=== PATIENT | female | born 1960 | race African-American/Black ===

== ENCOUNTER 2022-08-22 03:42 | Inpatient (IN) | payer MEDICAID ==
[~2022-08-22] VITALS: Ht 160 cm; Wt 48.4 kg
[~2022-08-22 03:42] MED LIST: BACL10TA PO; CITA-77 PO; CYCL-839 PO; ETAN50IN10 SUBCUT; FOLI1TAB6 PO; HYDR-4188 PO; HYDR-4833 PO; LEVO750T8 PO; LOSA-69 PO; MORP30TA PO; PERCOT PO; QUET25TA37 PO; SIMV-13 PO; TOPI50TA53 PO
[2022-08-22] MEDS ORDERED: methylPREDNISolone SOD SUCC 125 MG/2 ML VL IV ONE (04:00)
[2022-08-22] MEDS ORDERED: ALBUTEROL SULF 2.5 MG/0.5ML(0.5%) NEB SOLN NEB ONE (04:00)
[2022-08-22] MEDS ORDERED: IPRATROPIUM BROM 0.5 MG/2.5ML INH SOL NEB ONE (04:00)
[2022-08-22 04:14] LABS: Hemoglobin 11.6 g/dL (12.2-16.2); Mean Corpuscular Volume 85.7 fL (80.0-100.0); White Blood Cell 8.4 10^3/uL (4.4-10.8)
[2022-08-22 04:16] LABS: Hematocrit 37.1 % (36.0-46.0); Mean Corpuscular Hemoglobin 26.8 pg (28.0-32.0); Mean Corpuscular Hgb Conc. 31.3 g/dL (32.0-36.0); Red Blood Cells 4.33 10^6/uL (4.0-5.20)
[2022-08-22 04:24] LABS: INR 1.08 (0.9-1.15); Partial Thromboplastin Time 30.9 sec (24.6-33.4)
[2022-08-22 04:30] LABS: Albumin 3.1 g/dL (3.4-5.0); Calcium 7.8 mg/dL (8.5-10.1); Potassium 4.3 mmol/L (3.5-5.1)
[2022-08-22 04:33] LABS: BUN/Creatinine Ratio 14.1 (10.0-20.0); Bilirubin, Total 0.4 mg/dL (0.2-1.0); Total Protein 6.4 g/dL (6.4-8.2)
[2022-08-22 04:38] LABS: Red Cell Distribution Width 21.4 % (11.8-14.3)
[2022-08-22 04:39] LABS: Basophils % (manual) 0 (0.0-2.0); Blast Cells 0; Eosinophils % (manual) 0 (0-7); Metamyelocytes % 0; Myelocytes % 0; Promyelocytes % 0; Reactive Lymphocytes 0
[2022-08-22] MEDS ORDERED: TERBUTALINE SULFATE 1 MG/ML 1ML VIAL SC ONE (05:00)
[2022-08-22 05:02] LABS: Band Neutrophils % (manual) 2; Lymphocytes % (manual) 8 (10.0-50.0); Monocytes % (manual) 7 (0-12)
[2022-08-22] MEDS: MAGNESIUM SULFATE 1GM/100ML 100 ML IV SCH ×2 (06:29→10:57)
[2022-08-22] MEDS ORDERED: DEXTROSE (50%) 50ML SYRG IV PRN (07:30)
[2022-08-22] MEDS ORDERED: MORPHINE SULFATE INJ 2 MG/ml SYRG IV PRN (07:30)
[2022-08-22] MEDS ORDERED: IPRATROPIUM BROM 0.5 MG/2.5ML INH SOL NEB PRN (07:30)
[2022-08-22] MEDS ORDERED: NITROGLYCERIN 0.4 MG SL TAB SL PRN (07:30)
[2022-08-22] MEDS ORDERED: ALBUTEROL SULF 2.5 MG/0.5ML(0.5%) NEB SOLN NEB PRN (07:30)
[2022-08-22 08:04] LABS: Urine Bacteria FEW /hpf (None Seen); Urine Blood Negative /uL (Negative); Urine Mucus FEW (None Seen); Urine Specific Gravity 1.012 (1.001-1.035); Urine WBC 2 /hpf (0 - 5)
[2022-08-22 08:14] VITALS: BP 152/76
[2022-08-22] MEDS: IPRATROPIUM BROM 0.5 MG/2.5ML INH SOL NEB SCH ×4 (09:21→22:21)
[2022-08-22] MEDS: ALBUTEROL SULF 2.5 MG/0.5ML(0.5%) NEB SOLN NEB SCH ×4 (09:21→22:22)
[2022-08-22] MEDS: PANTOPRAZOLE 40 MG/10 ML VIAL INJ IV SCH (10:52)
[2022-08-22] MEDS: ENOXAPARIN SOD 40 MG/0.4 ML SYRINGE SC SCH (10:52)
[2022-08-22] MEDS: methylPREDNISolone SOD SUCC 125 MG/2 ML VL IV SCH ×2 (10:53→21:56)
[2022-08-22] MEDS: ACCU-CHEK COMFORT CURVE STRIP VI SCH ×3 (12:00→21:59)
[2022-08-22] MEDS: InsuLIN REG 1unit/0.01ml Soln (100units/ml) SC SCH ×3 (12:08→21:51)
[2022-08-22] MEDS ORDERED: IOHEXOL 350 MG/ML 100ML IJ ONE (13:15)
[2022-08-22] MEDS ORDERED: NICOTINE 7MG/24HR TOPICAL PATCH TD ONE (13:45)
[2022-08-22 22:37] VITALS: BP 157/79
[2022-08-22 23:21] VITALS: BP 157/79
[2022-08-23] MEDS: IPRATROPIUM BROM 0.5 MG/2.5ML INH SOL NEB SCH ×6 (02:13→22:33)
[2022-08-23] MEDS: ALBUTEROL SULF 2.5 MG/0.5ML(0.5%) NEB SOLN NEB SCH ×6 (02:13→22:33)
[2022-08-23] MEDS ORDERED: HYDROcodone-ACET 5/325MG TAB PO ONE (04:30)
[2022-08-23 05:16] VITALS: BP 148/69
[2022-08-23] MEDS: InsuLIN REG 1unit/0.01ml Soln (100units/ml) SC SCH ×2 (05:16→11:30)
[2022-08-23] MEDS: ACCU-CHEK COMFORT CURVE STRIP VI SCH ×2 (05:17→11:30)
[2022-08-23 06:29] LABS: Basophils # (auto) 0 10 ^3/uL (0-0.2); Eosinophils # (auto) 0 10 ^3/uL (0-0.8); Eosinophils % (auto) 0.1 % (0.0-7.0); Hemoglobin 11.8 g/dL (12.2-16.2); Lymphocytes # (auto) 0.3 10 ^3/uL (0.4-5.4); Mean Corpuscular Volume 85.2 fL (80.0-100.0); Monocytes # (auto) 0.3 10 ^3/uL (0-1.3); White Blood Cell 4.1 10^3/uL (4.4-10.8)
[2022-08-23 06:32] LABS: Basophils % (auto) 0.2 % (0.0-2.0); Hematocrit 37.7 % (36.0-46.0); Mean Corpuscular Hemoglobin 26.7 pg (28.0-32.0); Mean Corpuscular Hgb Conc. 31.3 g/dL (32.0-36.0); Monocytes % (auto) 7.7 % (0.0-12.0); Neutrophils # (auto) 3.5 10 ^3/uL (1.6-8.6); Nucleated Red Blood Cells % 0.2 %; Potassium 4.4 mmol/L (3.5-5.1); Red Blood Cells 4.42 10^6/uL (4.0-5.20)
[2022-08-23 06:39] LABS: Albumin 2.8 g/dL (3.4-5.0); BUN/Creatinine Ratio 22.7 (10.0-20.0); Bilirubin, Total 0.3 mg/dL (0.2-1.0); Calcium 8.3 mg/dL (8.5-10.1); Total Protein 6.6 g/dL (6.4-8.2)
[2022-08-23 07:28] LABS: Red Cell Distribution Width 21.9 % (11.8-14.3)
[2022-08-23 09:24] VITALS: BP 108/79
[2022-08-23] MEDS: NICOTINE 7MG/24HR TOPICAL PATCH TD SCH (10:00)
[2022-08-23] MEDS ORDERED: ACETAMINOPHEN 325 MG TAB PO PRN (10:45)
[2022-08-23] MEDS: methylPREDNISolone SOD SUCC 125 MG/2 ML VL IV SCH ×2 (10:47→21:23)
[2022-08-23] MEDS: PANTOPRAZOLE 40 MG/10 ML VIAL INJ IV SCH (10:47)
[2022-08-23] MEDS: ENOXAPARIN SOD 40 MG/0.4 ML SYRINGE SC SCH (10:47)
[2022-08-23 12:29] VITALS: BP 158/88
[2022-08-23] MEDS: HYDROcodone-ACET 5/325MG TAB PO PRN ×2 (16:25→22:43)
[2022-08-23 16:40] VITALS: BP 173/91
[2022-08-24 00:38] VITALS: BP 132/72
[2022-08-24] MEDS: IPRATROPIUM BROM 0.5 MG/2.5ML INH SOL NEB SCH ×6 (02:31→22:06)
[2022-08-24] MEDS: ALBUTEROL SULF 2.5 MG/0.5ML(0.5%) NEB SOLN NEB SCH ×6 (02:31→22:06)
[2022-08-24] MEDS: HYDROcodone-ACET 5/325MG TAB PO PRN ×4 (05:12→22:37)
[2022-08-24] MEDS: hydrALAZINE HCL 20 MG/ML VL IV PRN ×2 (05:16→11:55)
[2022-08-24 06:10] LABS: Anion Gap 7 (5-15); BUN/Creatinine Ratio 26.8 (10.0-20.0); Blood Urea Nitrogen 19 mg/dL (7-18); Calcium 8.7 mg/dL (8.5-10.1); Carbon Dioxide 25 mmol/L (21-32); Chloride 110 mmol/L (98-107); GFR African American 107 mL/min; GFR Non-African American 88 mL/min; Glucose 177 mg/dL (74-106); Potassium 5.4 mmol/L (3.5-5.1); Sodium 142 mmol/L (136-145)
[2022-08-24 06:16] LABS: Basophils # (auto) 0.1 10 ^3/uL (0-0.2); Eosinophils # (auto) 0 10 ^3/uL (0-0.8); Monocytes # (auto) 0.3 10 ^3/uL (0-1.3)
[2022-08-24 06:17] LABS: Basophils % (auto) 0.5 % (0.0-2.0); Hematocrit 40.5 % (36.0-46.0); Hemoglobin 12.6 g/dL (12.2-16.2); Lymphocytes # (auto) 0.3 10 ^3/uL (0.4-5.4); Lymphocytes % (auto) 2.6 % (10.0-50.0); Mean Corpuscular Hemoglobin 26.7 pg (28.0-32.0); Mean Corpuscular Volume 86.2 fL (80.0-100.0); Monocytes % (auto) 3.2 % (0.0-12.0); Neutrophils # (auto) 9.5 10 ^3/uL (1.6-8.6); Neutrophils % (auto) 93.7 % (37.0-80.0); Nucleated Red Blood Cells % 0.3 %; Red Cell Distribution Width 22.8 % (11.8-14.3); White Blood Cell 10.1 10^3/uL (4.4-10.8)
[2022-08-24 08:00] VITALS: BP 157/82
[2022-08-24 09:00] VITALS: BP 157/82
[2022-08-24] MEDS: NICOTINE 7MG/24HR TOPICAL PATCH TD SCH (10:00)
[2022-08-24] MEDS: PANTOPRAZOLE 40 MG/10 ML VIAL INJ IV SCH (10:00)
[2022-08-24] MEDS: methylPREDNISolone SOD SUCC 125 MG/2 ML VL IV SCH ×2 (10:01→21:29)
[2022-08-24] MEDS: ENOXAPARIN SOD 40 MG/0.4 ML SYRINGE SC SCH (10:01)
[2022-08-24] MEDS: HCTZ 25 MG TAB PO SCH (12:00)
[2022-08-24 13:00] VITALS: BP 170/94
[2022-08-24] MEDS ORDERED: ONDANSETRON HCL 4 MG/2 ML VIAL IV PRN (14:30)
[2022-08-24] MEDS: amLODIPine BESYLATE 5 MG TAB PO SCH (15:45)
[2022-08-24] MEDS: LOSARTAN POTASSIUM 50 MG TAB PO SCH (15:46)
[2022-08-24 17:22] VITALS: BP 156/96
[2022-08-24 22:00] VITALS: BP 128/58
[2022-08-24] MEDS ORDERED: SENNA 8.6 MG TAB PO ONE (22:00)
[2022-08-25] MEDS: ALBUTEROL SULF 2.5 MG/0.5ML(0.5%) NEB SOLN NEB SCH ×3 (02:19→10:44)
[2022-08-25] MEDS: IPRATROPIUM BROM 0.5 MG/2.5ML INH SOL NEB SCH ×3 (02:19→10:44)
[2022-08-25 05:00] VITALS: BP 100/69
[2022-08-25] MEDS: HYDROcodone-ACET 5/325MG TAB PO PRN ×2 (05:01→11:18)
[2022-08-25 05:41] LABS: Basophils # (auto) 0 10 ^3/uL (0-0.2); Eosinophils # (auto) 0 10 ^3/uL (0-0.8); Hemoglobin 11.9 g/dL (12.2-16.2); Lymphocytes # (auto) 0.2 10 ^3/uL (0.4-5.4); Neutrophils # (auto) 8.2 10 ^3/uL (1.6-8.6); White Blood Cell 8.8 10^3/uL (4.4-10.8)
[2022-08-25 05:57] LABS: BUN/Creatinine Ratio 23.1 (10.0-20.0); Calcium 8.3 mg/dL (8.5-10.1); Potassium 3.9 mmol/L (3.5-5.1)
[2022-08-25 05:58] LABS: Basophils % (auto) 0.4 % (0.0-2.0); Hematocrit 37.6 % (36.0-46.0); Lymphocytes % (auto) 1.9 % (10.0-50.0); Mean Corpuscular Hemoglobin 26.6 pg (28.0-32.0); Mean Corpuscular Hgb Conc. 31.7 g/dL (32.0-36.0); Mean Corpuscular Volume 83.8 fL (80.0-100.0); Monocytes # (auto) 0.4 10 ^3/uL (0-1.3); Monocytes % (auto) 4.1 % (0.0-12.0); Neutrophils % (auto) 93.6 % (37.0-80.0); Nucleated Red Blood Cells % 0.1 %; Red Blood Cells 4.49 10^6/uL (4.0-5.20); Red Cell Distribution Width 22.3 % (11.8-14.3)
[2022-08-25 08:50] VITALS: BP 117/69
[2022-08-25] MEDS: methylPREDNISolone SOD SUCC 125 MG/2 ML VL IV SCH (10:00)
[2022-08-25] MEDS: HCTZ 25 MG TAB PO SCH (10:00)
[2022-08-25] MEDS: NICOTINE 7MG/24HR TOPICAL PATCH TD SCH (10:00)
[2022-08-25] MEDS: PANTOPRAZOLE 40 MG/10 ML VIAL INJ IV SCH (10:04)
[2022-08-25] MEDS: ENOXAPARIN SOD 40 MG/0.4 ML SYRINGE SC SCH (10:06)
[2022-08-25] MEDS: amLODIPine BESYLATE 5 MG TAB PO SCH (10:07)
[2022-08-25] MEDS: LOSARTAN POTASSIUM 50 MG TAB PO SCH (10:07)
[2022-08-25] MEDS ORDERED: PRED20TA2 PO (11:17)
[2022-08-25 12:40] VITALS: BP 131/61
[2022-08-25 12:52] VITALS: BP 149/79
[2022-08-25 15:58] VITALS: BP 131/61
== END 2022-08-25 14:00 | disposition home or self-care (01) | DRG 140 ==
LOC: ER 03:42 → EDBD 03:42 → TELE 07:28 → TELE-WESTW 21:17
PROVIDERS: ADMIT Registered Nurse; ATTEND Internal Medicine Pulmonary Disease
DX: J44.1 Chronic obstructive pulmonary disease with (acute) exacerbation (principal); J96.21 Acute and chronic respiratory failure with hypoxia; E43 Unspecified severe protein-calorie malnutrition; F17.210 Nicotine dependence, cigarettes, uncomplicated; I10 Essential (primary) hypertension; F41.9 Anxiety disorder, unspecified; F32.A Depression, unspecified; E78.5 Hyperlipidemia, unspecified; E09.65 Drug or chemical induced diabetes mellitus with hyperglycemia; T38.0X5A Adverse effect of glucocorticoids and synthetic analogues, initial encounter; Z90.710 Acquired absence of both cervix and uterus; Z68.1 Body mass index [BMI] 19.9 or less, adult; Z88.8 Allergy status to other drugs, medicaments and biological substances
CPT/HCPCS: 36415; 36600; 71045; 71275; 74176; 80048; 80053; 81001; 82805; 82962; 83735; 83880; 84484; 85007; 85025; 85027; 85379; 85610; 85730; 93005; 94640; 96365; 96372; 96375; 96376; C9113; G0378; J1815; J2405

== ENCOUNTER 2023-04-09 22:47 | Inpatient (IN) | payer MEDICAID ==
[~2023-04-09] VITALS: Ht 165.1 cm; Wt 52.0 kg
[~2023-04-09 22:47] MED LIST changes: -BACL10TA PO; -CITA-77 PO; -CYCL-839 PO; -ETAN50IN10 SUBCUT; -FOLI1TAB6 PO; -HYDR-4188 PO; -HYDR-4833 PO; -LEVO750T8 PO; -LOSA-69 PO; -MORP30TA PO; -PERCOT PO; +PRED20TA2 PO; -QUET25TA37 PO; -SIMV-13 PO; -TOPI50TA53 PO
[2023-04-09 22:52] VITALS: PULSE 149; O2SAT 100
[2023-04-09] MEDS ORDERED: cefTRIAXone 1GM/50ML D5W 50 ML IV ONE ×2 (23:05→23:15)
[2023-04-09] MEDS ORDERED: methylPREDNISolone SOD SUCC 125 MG/2 ML VL ONE (23:05)
[2023-04-09] MEDS ORDERED: methylPREDNISolone SOD SUCC 125 MG/2 ML VL IV ONE (23:15)
[2023-04-09] MEDS ORDERED: ALBUTEROL SULF 2.5 MG/0.5ML(0.5%) NEB SOLN NEB ONE ×2 (23:15)
[2023-04-09 23:30] LABS: Basophils # (auto) 0.3 10 ^3/uL (0-0.2); Basophils % (auto) 1.4 % (0.0-2.0); Eosinophils # (auto) 0.1 10 ^3/uL (0-0.8); Eosinophils % (auto) 0.4 % (0.0-7.0); Hemoglobin 12.2 g/dL (12.2-16.2); Lymphocytes # (auto) 1.8 10 ^3/uL (0.4-5.4); Lymphocytes % (auto) 10.1 % (10.0-50.0); Mean Corpuscular Hemoglobin 29.3 pg (28.0-32.0); Mean Corpuscular Hgb Conc. 31.3 g/dL (32.0-36.0); Mean Corpuscular Volume 93.6 fL (80.0-100.0); Monocytes # (auto) 0.2 10 ^3/uL (0-1.3); Neutrophils # (auto) 15.7 10 ^3/uL (1.6-8.6); Neutrophils % (auto) 87.1 % (37.0-80.0); Nucleated Red Blood Cells % 0.5 %; Red Blood Cells 4.17 10^6/uL (4.0-5.20); Red Cell Distribution Width 15.6 % (11.8-14.3)
[2023-04-10] VITALS (14 sets, daily range): BP systolic 83–160; BP diastolic 50–84; PULSE 80–150; RESP 21–30; TEMP 98.4; O2SAT 95–100
[2023-04-10] MEDS ORDERED: levoFLOXacin 500MG 100 ML IV ONE (00:15)
[2023-04-10 00:21] LABS: Base Excess 4.3 mmol/L (-2.0-2.0)
[2023-04-10] MEDS ORDERED: fentaNYL CITRATE 100 MCG/2 ML VL IV ONE (00:30)
[2023-04-10 00:36] LABS: INR 1.04 (0.9-1.15); Partial Thromboplastin Time 21.7 SEC (24.5-34.5); Prothrombin Time 10.9 sec (9.3-11.8)
[2023-04-10 01:00] LABS: Alanine Aminotransferase 60 U/L (7-40); Alkaline Phosphatase 228 U/L (46-116); Anion Gap 9 (5-15); Aspartate Aminotransferase 41 U/L (13-40); BUN/Creatinine Ratio 17.9 (10.0-20.0); Blood Urea Nitrogen 12 mg/dL (9-23); Calcium 8.7 mg/dL (8.7-10.4); Carbon Dioxide 24 mmol/L (20-30); Chloride 104 mmol/L (98-107); Glucose 184 mg/dL (74-106); Potassium 3.9 mmol/L (3.5-5.1); Sodium 137 mmol/L (136-145)
[2023-04-10 01:01] LABS: Albumin 3.6 g/dL (3.2-4.8); Bilirubin, Total 0.7 mg/dL (0.2-1.0); Total Protein 6.7 g/dL (5.7-8.2)
[2023-04-10 01:37] LABS: COVID19 ANTIGEN SOFIA FIA NEGATIVE (NEGATIVE)
[2023-04-10 01:41] LABS: Rapid Influenza A Negative (Negative); Rapid Influenza B Positive (Negative)
[2023-04-10] MEDS ORDERED: LORazepam 2MG/ML-1ML VIAL IV ONE (03:00)
[2023-04-10] MEDS ORDERED: ASPirin 325 MG TAB PO ONE (03:15)
[2023-04-10] MEDS ORDERED: ENOXAPARIN SOD 60 MG/0.6 ML SYRINGE SC ONE (03:15)
[2023-04-10] MEDS ORDERED: SODIUM CHLORIDE 0.9% 1,500 ML IV ONE (04:30)
[2023-04-10] MEDS ORDERED: ALBUMIN 5% 250 ML IV ONE (05:15)
[2023-04-10] MEDS ORDERED: ALBUTEROL SULF 2.5 MG/0.5ML(0.5%) NEB SOLN NEB PRN (06:15)
[2023-04-10] MEDS ORDERED: NITROGLYCERIN 0.4 MG SL TAB SL PRN (06:15)
[2023-04-10] MEDS ORDERED: ONDANSETRON HCL 4 MG/2 ML VIAL IV PRN (06:15)
[2023-04-10] MEDS ORDERED: cefTRIAXone 1GM/50ML D5W 50 ML IV SCH (09:00)
[2023-04-10] MEDS ORDERED: ENOXAPARIN SOD 40 MG/0.4 ML SYRINGE SC SCH (10:00)
[2023-04-10] MEDS ORDERED: OSELTAMIVIR 75 MG CAP PO ONE (10:45)
[2023-04-10] MEDS: AZITHROMYCIN 500MG/ 250ML 250 ML IV SCH (11:17)
[2023-04-10] MEDS: ASPirin 81 mg TAB PO SCH (11:17)
[2023-04-10] MEDS: MAGNESIUM SULFATE 1GM/100ML 100 ML IV SCH ×2 (11:59→13:21)
[2023-04-10] MEDS: ACETAMINOPHEN 325 MG TAB PO PRN (11:59)
[2023-04-10 12:10] LABS: Basophils # (auto) 0.1 10 ^3/uL (0-0.2); Basophils % (auto) 0.3 % (0.0-2.0); Eosinophils # (auto) 0 10 ^3/uL (0-0.8); Hematocrit 28.4 % (36.0-46.0); Lymphocytes # (auto) 0.8 10 ^3/uL (0.4-5.4); Lymphocytes % (auto) 3.4 % (10.0-50.0); Mean Corpuscular Hemoglobin 29.4 pg (28.0-32.0); Mean Corpuscular Hgb Conc. 31.7 g/dL (32.0-36.0); Monocytes # (auto) 0.5 10 ^3/uL (0-1.3); Monocytes % (auto) 2.1 % (0.0-12.0); Neutrophils % (auto) 94.2 % (37.0-80.0); Red Blood Cells 3.05 10^6/uL (4.0-5.20); Red Cell Distribution Width 15.3 % (11.8-14.3); White Blood Cell 24.4 10^3/uL (4.4-10.8)
[2023-04-10 12:30] LABS: Alanine Aminotransferase 51 U/L (7-40); Albumin 3.1 g/dL (3.2-4.8); Alkaline Phosphatase 177 U/L (46-116); Anion Gap 10 (5-15); Aspartate Aminotransferase 25 U/L (13-40); Blood Urea Nitrogen 15 mg/dL (9-23); Calcium 8.2 mg/dL (8.5-10.1); Carbon Dioxide 23 mmol/L (20-30); Chloride 109 mmol/L (98-107); Glucose 233 mg/dL (74-106); Potassium 4.7 mmol/L (3.5-5.1); Sodium 142 mmol/L (136-145)
[2023-04-10 12:31] LABS: Bilirubin, Total 0.3 mg/dL (0.2-1.0); Total Protein 5.2 g/dL (5.7-8.2)
[2023-04-10] MEDS: MORPHINE SULFATE INJ 2 MG/ml SYRG IV PRN ×2 (12:35→19:55)
[2023-04-10 14:33] LABS: Base Excess 0.6 mmol/L (-2.0-2.0)
[2023-04-10] MEDS: ALBUTEROL SULF 2.5 MG/0.5ML(0.5%) NEB SOLN NEB SCH ×4 (15:05→23:31)
[2023-04-10] MEDS: IPRATROPIUM BROM 0.5 MG/2.5ML INH SOL NEB SCH ×4 (15:05→23:32)
[2023-04-10] MEDS: methylPREDNISolone SOD SUCC 40 MG/ML VL IV SCH (21:14)
[2023-04-10] MEDS: cefTRIAXone 1GM/50ML D5W 50 ML IV SCH (21:15)
[2023-04-10] MEDS: OSELTAMIVIR 75 MG CAP PO SCH (21:15)
[2023-04-10] MEDS: ATORVASTATIN 20 MG TAB PO SCH (21:15)
[2023-04-10] MEDS ORDERED: DEXTROSE (50%) 50ML SYRG IV PRN (23:30)
[2023-04-11] VITALS (18 sets, daily range): BP systolic 126–150; BP diastolic 58–100; PULSE 85–117; RESP 17–32; TEMP 98.3–99.1; O2SAT 10–100
[2023-04-11] MEDS: MORPHINE SULFATE INJ 2 MG/ml SYRG IV PRN ×5 (01:57→21:02)
[2023-04-11 03:40] LABS: Urine Bacteria FEW /hpf (None Seen); Urine Blood Negative /uL (Negative); Urine Clarity Clear (Clear); Urine Color Colorless (Yellow); Urine Protein, UAD Negative (Negative); Urine Specific Gravity 1.015 (1.001-1.035); Urine Urobilinogen Normal (Negative); Urine WBC 1 /hpf (0 - 5)
[2023-04-11] MEDS: ENOXAPARIN SOD 40 MG/0.4 ML SYRINGE SC SCH (05:26)
[2023-04-11 06:09] LABS: Basophils # (auto) 0.1 10 ^3/uL (0-0.2); Basophils % (auto) 0.5 % (0.0-2.0); Eosinophils # (auto) 0 10 ^3/uL (0-0.8); Hematocrit 26.8 % (36.0-46.0); Hemoglobin 8.6 g/dL (12.2-16.2); Lymphocytes # (auto) 0.5 10 ^3/uL (0.4-5.4); Mean Corpuscular Hemoglobin 29.2 pg (28.0-32.0); Mean Corpuscular Hgb Conc. 32.2 g/dL (32.0-36.0); Mean Corpuscular Volume 90.9 fL (80.0-100.0); Monocytes # (auto) 0.4 10 ^3/uL (0-1.3); Monocytes % (auto) 2.2 % (0.0-12.0); Neutrophils # (auto) 16.6 10 ^3/uL (1.6-8.6); Neutrophils % (auto) 94.3 % (37.0-80.0); Red Blood Cells 2.95 10^6/uL (4.0-5.20); Red Cell Distribution Width 14.9 % (11.8-14.3); White Blood Cell 17.6 10^3/uL (4.4-10.8)
[2023-04-11 06:16] LABS: INR 0.99 (0.9-1.15); Prothrombin Time 10.4 sec (9.3-11.8)
[2023-04-11] MEDS: IPRATROPIUM BROM 0.5 MG/2.5ML INH SOL NEB SCH ×5 (06:16→23:17)
[2023-04-11] MEDS: ALBUTEROL SULF 2.5 MG/0.5ML(0.5%) NEB SOLN NEB SCH ×5 (06:16→23:17)
[2023-04-11 06:30] LABS: % Iron Saturation 8.7 % (15-50)
[2023-04-11 06:32] LABS: Alanine Aminotransferase 43 U/L (7-40); Albumin 3.4 g/dL (3.2-4.8); Alkaline Phosphatase 167 U/L (46-116); Anion Gap 3 (5-15); Aspartate Aminotransferase 18 U/L (13-40); BUN/Creatinine Ratio 25.6 (10.0-20.0); Bilirubin, Total 0.2 mg/dL (0.2-1.0); Blood Urea Nitrogen 20 mg/dL (9-23); Calcium 8.7 mg/dL (8.7-10.4); Carbon Dioxide 29 mmol/L (20-30); Chloride 106 mmol/L (98-107); Glucose 301 mg/dL (74-106); Magnesium 2.2 mg/dL (1.6-2.6); Potassium 4.9 mmol/L (3.5-5.1); Sodium 138 mmol/L (136-145); Total Protein 6.1 g/dL (5.7-8.2)
[2023-04-11 06:39] LABS: Folate (Folic Acid) 10.25 ng/mL (>5.38)
[2023-04-11] MEDS: ACCU-CHEK COMFORT CURVE STRIP VI SCH ×4 (07:14→21:56)
[2023-04-11] MEDS: InsuLIN REG 1unit/0.01ml Soln (100units/ml) SC SCH ×4 (07:15→21:58)
[2023-04-11] MEDS: INSULIN LANTUS (GLARGINE) 1 /0.01ml (100units/ml) SC SCH (07:15)
[2023-04-11] MEDS: ASPirin 81 mg TAB PO SCH (08:03)
[2023-04-11] MEDS: methylPREDNISolone SOD SUCC 40 MG/ML VL IV SCH (08:03)
[2023-04-11] MEDS: OSELTAMIVIR 75 MG CAP PO SCH ×2 (08:03→20:59)
[2023-04-11] MEDS: AZITHROMYCIN 500MG/ 250ML 250 ML IV SCH (08:04)
[2023-04-11] MEDS ORDERED: AZITHROMYCIN 250 MG TAB PO ONE (16:00)
[2023-04-11] MEDS: ATORVASTATIN 20 MG TAB PO SCH (20:59)
[2023-04-11] MEDS: cefTRIAXone 1GM/50ML D5W 50 ML IV SCH (20:59)
[2023-04-12] VITALS (20 sets, daily range): BP systolic 129–149; BP diastolic 57–75; PULSE 78–118; RESP 17–37; TEMP 98–99.1; O2SAT 90–100
[2023-04-12] MEDS: ALBUTEROL SULF 2.5 MG/0.5ML(0.5%) NEB SOLN NEB SCH ×6 (02:49→22:17)
[2023-04-12] MEDS: IPRATROPIUM BROM 0.5 MG/2.5ML INH SOL NEB SCH ×6 (02:49→22:17)
[2023-04-12] MEDS: MORPHINE SULFATE INJ 2 MG/ml SYRG IV PRN ×5 (04:07→22:36)
[2023-04-12] MEDS: ENOXAPARIN SOD 40 MG/0.4 ML SYRINGE SC SCH (04:15)
[2023-04-12 05:11] LABS: Basophils # (auto) 0 10 ^3/uL (0-0.2); Basophils % (auto) 0.2 % (0.0-2.0); Eosinophils # (auto) 0.1 10 ^3/uL (0-0.8); Eosinophils % (auto) 0.7 % (0.0-7.0); Hematocrit 29.6 % (36.0-46.0); Hemoglobin 9.3 g/dL (12.2-16.2); Lymphocytes # (auto) 2.4 10 ^3/uL (0.4-5.4); Lymphocytes % (auto) 13.5 % (10.0-50.0); Mean Corpuscular Hemoglobin 28.8 pg (28.0-32.0); Mean Corpuscular Hgb Conc. 31.5 g/dL (32.0-36.0); Mean Corpuscular Volume 91.7 fL (80.0-100.0); Monocytes # (auto) 0.9 10 ^3/uL (0-1.3); Monocytes % (auto) 4.9 % (0.0-12.0); Neutrophils # (auto) 14.5 10 ^3/uL (1.6-8.6); Neutrophils % (auto) 80.7 % (37.0-80.0); Red Blood Cells 3.22 10^6/uL (4.0-5.20); Red Cell Distribution Width 15.3 % (11.8-14.3); White Blood Cell 17.9 10^3/uL (4.4-10.8)
[2023-04-12 05:12] LABS: Anion Gap 5 (5-15); Carbon Dioxide 29 mmol/L (20-30); Chloride 105 mmol/L (98-107); Potassium 4.4 mmol/L (3.5-5.1); Sodium 139 mmol/L (136-145)
[2023-04-12 05:13] LABS: Calcium 9.1 mg/dL (8.7-10.4)
[2023-04-12 05:18] LABS: BUN/Creatinine Ratio 31.7 (10.0-20.0); Blood Urea Nitrogen 20 mg/dL (9-23); Glucose 94 mg/dL (74-106)
[2023-04-12] MEDS: InsuLIN REG 1unit/0.01ml Soln (100units/ml) SC SCH ×4 (06:14→22:31)
[2023-04-12] MEDS: ACCU-CHEK COMFORT CURVE STRIP VI SCH ×4 (06:14→22:37)
[2023-04-12] MEDS: INSULIN LANTUS (GLARGINE) 1 /0.01ml (100units/ml) SC SCH (06:18)
[2023-04-12] MEDS: ASPirin 81 mg TAB PO SCH (09:58)
[2023-04-12] MEDS: methylPREDNISolone SOD SUCC 40 MG/ML VL IV SCH (09:58)
[2023-04-12] MEDS: OSELTAMIVIR 75 MG CAP PO SCH ×2 (09:58→22:33)
[2023-04-12] MEDS: AZITHROMYCIN 250 MG TAB PO SCH (09:59)
[2023-04-12] MEDS ORDERED: TAMIFLU PO (10:58)
[2023-04-12] MEDS ORDERED: PRED20TA2 PO (10:58)
[2023-04-12] MEDS ORDERED: AZIT500T66 PO ×2 (10:58)
[2023-04-12] MEDS ORDERED: DOXY-448 PO (10:59)
[2023-04-12] MEDS: ACETAMINOPHEN 325 MG TAB PO PRN (15:01)
[2023-04-12] MEDS: DOCUSATE SOD 100 MG CAP PO PRN (15:01)
[2023-04-12] MEDS ORDERED: NYSTATIN (MOUTH-THROAT) 500,000 UNITS/5 ML SUSP MT ONE (18:30)
[2023-04-12] MEDS: ATORVASTATIN 20 MG TAB PO SCH (22:33)
[2023-04-12] MEDS: cefTRIAXone 1GM/50ML D5W 50 ML IV SCH (22:34)
[2023-04-12] MEDS: NYSTATIN (MOUTH-THROAT) 500,000 UNITS/5 ML SUSP MT SCH (22:34)
[2023-04-13] VITALS (20 sets, daily range): BP systolic 111–141; BP diastolic 68–76; PULSE 84–101; RESP 17–32; TEMP 98.1–98.8; O2SAT 95–100
[2023-04-13] MEDS: ENOXAPARIN SOD 40 MG/0.4 ML SYRINGE SC SCH (04:37)
[2023-04-13] MEDS: MORPHINE SULFATE INJ 2 MG/ml SYRG IV PRN ×3 (04:38→19:38)
[2023-04-13 05:37] LABS: Chloride 103 mmol/L (98-107); Potassium 3.6 mmol/L (3.5-5.1); Sodium 140 mmol/L (136-145)
[2023-04-13 05:38] LABS: Anion Gap 8 (5-15); Carbon Dioxide 29 mmol/L (20-30)
[2023-04-13 05:39] LABS: Calcium 9.1 mg/dL (8.5-10.1)
[2023-04-13 05:43] LABS: Glucose 184 mg/dL (74-106)
[2023-04-13 05:44] LABS: BUN/Creatinine Ratio 23.9 (10.0-20.0); Blood Urea Nitrogen 17 mg/dL (9-23)
[2023-04-13 05:48] LABS: Basophils # (auto) 0.1 10 ^3/uL (0-0.2); Basophils % (auto) 0.8 % (0.0-2.0); Eosinophils # (auto) 0.1 10 ^3/uL (0-0.8); Eosinophils % (auto) 0.4 % (0.0-7.0); Hematocrit 29.8 % (36.0-46.0); Hemoglobin 9.6 g/dL (12.2-16.2); Lymphocytes # (auto) 2.1 10 ^3/uL (0.4-5.4); Mean Corpuscular Hgb Conc. 32.1 g/dL (32.0-36.0); Mean Corpuscular Volume 90.5 fL (80.0-100.0); Monocytes # (auto) 0.8 10 ^3/uL (0-1.3); Monocytes % (auto) 5.3 % (0.0-12.0); Neutrophils # (auto) 11.6 10 ^3/uL (1.6-8.6); Neutrophils % (auto) 79.5 % (37.0-80.0); Nucleated Red Blood Cells % 0.3 %; Red Blood Cells 3.29 10^6/uL (4.0-5.20); White Blood Cell 14.7 10^3/uL (4.4-10.8)
[2023-04-13] MEDS: NYSTATIN (MOUTH-THROAT) 500,000 UNITS/5 ML SUSP MT SCH ×4 (06:02→21:39)
[2023-04-13] MEDS: ACCU-CHEK COMFORT CURVE STRIP VI SCH ×4 (06:03→21:43)
[2023-04-13] MEDS: InsuLIN REG 1unit/0.01ml Soln (100units/ml) SC SCH ×4 (06:17→21:53)
[2023-04-13] MEDS: INSULIN LANTUS (GLARGINE) 1 /0.01ml (100units/ml) SC SCH (06:18)
[2023-04-13] MEDS: ALBUTEROL SULF 2.5 MG/0.5ML(0.5%) NEB SOLN NEB SCH ×4 (06:33→22:13)
[2023-04-13] MEDS: IPRATROPIUM BROM 0.5 MG/2.5ML INH SOL NEB SCH ×4 (06:33→22:13)
[2023-04-13] MEDS: ASPirin 81 mg TAB PO SCH (09:21)
[2023-04-13] MEDS: AZITHROMYCIN 250 MG TAB PO SCH (09:22)
[2023-04-13] MEDS: methylPREDNISolone SOD SUCC 40 MG/ML VL IV SCH (09:22)
[2023-04-13] MEDS: ACETAMINOPHEN 325 MG TAB PO PRN ×2 (09:22→18:01)
[2023-04-13] MEDS: DOCUSATE SOD 100 MG CAP PO PRN (09:22)
[2023-04-13] MEDS: OSELTAMIVIR 75 MG CAP PO SCH ×2 (09:22→21:39)
[2023-04-13] MEDS: cefTRIAXone 1GM/50ML D5W 50 ML IV SCH (21:01)
[2023-04-13] MEDS: ATORVASTATIN 20 MG TAB PO SCH (21:39)
[2023-04-14] VITALS (17 sets, daily range): BP systolic 122–136; BP diastolic 64–73; PULSE 65–101; RESP 18–24; TEMP 98–98.7; O2SAT 93–100
[2023-04-14] MEDS: ACETAMINOPHEN 325 MG TAB PO PRN ×3 (00:53→16:48)
[2023-04-14] MEDS: MORPHINE SULFATE INJ 2 MG/ml SYRG IV PRN ×3 (03:50→20:24)
[2023-04-14] MEDS: ENOXAPARIN SOD 40 MG/0.4 ML SYRINGE SC SCH (04:51)
[2023-04-14] MEDS: NYSTATIN (MOUTH-THROAT) 500,000 UNITS/5 ML SUSP MT SCH ×4 (06:07→21:19)
[2023-04-14] MEDS: ACCU-CHEK COMFORT CURVE STRIP VI SCH ×4 (06:12→22:04)
[2023-04-14] MEDS: InsuLIN REG 1unit/0.01ml Soln (100units/ml) SC SCH ×4 (06:13→22:11)
[2023-04-14] MEDS: INSULIN LANTUS (GLARGINE) 1 /0.01ml (100units/ml) SC SCH (06:27)
[2023-04-14] MEDS: IPRATROPIUM BROM 0.5 MG/2.5ML INH SOL NEB SCH ×5 (06:39→22:30)
[2023-04-14] MEDS: ALBUTEROL SULF 2.5 MG/0.5ML(0.5%) NEB SOLN NEB SCH ×5 (06:39→22:30)
[2023-04-14 08:50] LABS: Basophils # (auto) 0.2 10 ^3/uL (0-0.2); Basophils % (auto) 1.3 % (0.0-2.0); Eosinophils # (auto) 0.1 10 ^3/uL (0-0.8); Eosinophils % (auto) 0.6 % (0.0-7.0); Hematocrit 30.8 % (36.0-46.0); Hemoglobin 9.7 g/dL (12.2-16.2); Lymphocytes # (auto) 3.2 10 ^3/uL (0.4-5.4); Lymphocytes % (auto) 21.9 % (10.0-50.0); Mean Corpuscular Hemoglobin 28.6 pg (28.0-32.0); Mean Corpuscular Hgb Conc. 31.6 g/dL (32.0-36.0); Mean Corpuscular Volume 90.5 fL (80.0-100.0); Monocytes # (auto) 0.8 10 ^3/uL (0-1.3); Monocytes % (auto) 5.3 % (0.0-12.0); Neutrophils # (auto) 10.2 10 ^3/uL (1.6-8.6); Neutrophils % (auto) 70.9 % (37.0-80.0); Nucleated Red Blood Cells % 0.2 %; Red Cell Distribution Width 14.9 % (11.8-14.3); White Blood Cell 14.4 10^3/uL (4.4-10.8)
[2023-04-14 08:58] LABS: Chloride 104 mmol/L (98-107); Potassium 4.2 mmol/L (3.5-5.1); Sodium 139 mmol/L (136-145)
[2023-04-14 09:00] LABS: Anion Gap 8 (5-15); Calcium 9.1 mg/dL (8.5-10.1); Carbon Dioxide 27 mmol/L (20-30)
[2023-04-14 09:05] LABS: BUN/Creatinine Ratio 31.4 (10.0-20.0); Blood Urea Nitrogen 16 mg/dL (9-23); Glucose 87 mg/dL (74-106)
[2023-04-14] MEDS: OSELTAMIVIR 75 MG CAP PO SCH ×2 (09:42→21:19)
[2023-04-14] MEDS: ASPirin 81 mg TAB PO SCH (09:42)
[2023-04-14] MEDS: AZITHROMYCIN 250 MG TAB PO SCH (09:42)
[2023-04-14] MEDS: methylPREDNISolone SOD SUCC 40 MG/ML VL IV SCH (09:44)
[2023-04-14] MEDS: cefTRIAXone 1GM/50ML D5W 50 ML IV SCH (21:13)
[2023-04-14] MEDS: ATORVASTATIN 20 MG TAB PO SCH (21:19)
[2023-04-15] VITALS (11 sets, daily range): BP systolic 122–128; BP diastolic 59–74; PULSE 69–103; RESP 14–24; TEMP 98.1–98.7; O2SAT 90–100
[2023-04-15] MEDS: ACETAMINOPHEN 325 MG TAB PO PRN (00:30)
[2023-04-15] MEDS: MORPHINE SULFATE INJ 2 MG/ml SYRG IV PRN ×2 (04:05→09:18)
[2023-04-15] MEDS: ENOXAPARIN SOD 40 MG/0.4 ML SYRINGE SC SCH (05:30)
[2023-04-15] MEDS: NYSTATIN (MOUTH-THROAT) 500,000 UNITS/5 ML SUSP MT SCH ×2 (05:31→11:31)
[2023-04-15 06:09] LABS: Hematocrit 27.7 % (36.0-46.0); Hemoglobin 8.8 g/dL (12.2-16.2); Mean Corpuscular Hemoglobin 29.1 pg (28.0-32.0); Mean Corpuscular Hgb Conc. 31.7 g/dL (32.0-36.0); Mean Corpuscular Volume 91.6 fL (80.0-100.0); Red Blood Cells 3.03 10^6/uL (4.0-5.20); Red Cell Distribution Width 15.5 % (11.8-14.3)
[2023-04-15] MEDS: ACCU-CHEK COMFORT CURVE STRIP VI SCH ×2 (06:27→11:31)
[2023-04-15] MEDS: InsuLIN REG 1unit/0.01ml Soln (100units/ml) SC SCH ×2 (06:27→11:36)
[2023-04-15 06:34] LABS: Alanine Aminotransferase 16 U/L (7-40); Albumin 3.2 g/dL (3.2-4.8); Alkaline Phosphatase 112 U/L (46-116); Anion Gap 7 (5-15); Aspartate Aminotransferase 8 U/L (13-40); BUN/Creatinine Ratio 25.4 (10.0-20.0); Bilirubin, Total 0.3 mg/dL (0.2-1.0); Blood Urea Nitrogen 18 mg/dL (9-23); Calcium 8.4 mg/dL (8.7-10.4); Carbon Dioxide 27 mmol/L (20-30); Chloride 105 mmol/L (98-107); Glucose 143 mg/dL (74-106); Potassium 3.9 mmol/L (3.5-5.1); Sodium 139 mmol/L (136-145); Total Protein 5.6 g/dL (5.7-8.2)
[2023-04-15] MEDS: ALBUTEROL SULF 2.5 MG/0.5ML(0.5%) NEB SOLN NEB SCH ×3 (07:04→13:30)
[2023-04-15] MEDS: IPRATROPIUM BROM 0.5 MG/2.5ML INH SOL NEB SCH ×3 (07:04→13:30)
[2023-04-15] MEDS: INSULIN LANTUS (GLARGINE) 1 /0.01ml (100units/ml) SC SCH (07:05)
[2023-04-15 07:09] LABS: Band Neutrophils % (manual) 0; Basophils % (manual) 0 (0.0-2.0); Promyelocytes % 0; Reactive Lymphocytes 0
[2023-04-15] MEDS: methylPREDNISolone SOD SUCC 40 MG/ML VL IV SCH (09:16)
[2023-04-15] MEDS: AZITHROMYCIN 250 MG TAB PO SCH (09:17)
[2023-04-15] MEDS: OSELTAMIVIR 75 MG CAP PO SCH (09:17)
[2023-04-15] MEDS: ASPirin 81 mg TAB PO SCH (09:17)
[2023-04-15 09:30] LABS: Blast Cells 1; Eosinophils % (manual) 1 (0-7); Lymphocytes % (manual) 19 (10.0-50.0); Metamyelocytes % 4; Monocytes % (manual) 3 (0-12); Myelocytes % 1
[2023-04-15 09:31] LABS: Platelet Estimate Adequate
[2023-04-15] MEDS ORDERED: METF-370 PO (20:29)
[2023-04-15] MEDS ORDERED: BLOO1KIT60 XX (20:30)
== END 2023-04-15 14:59 | disposition home or self-care (01) | DRG 720 ==
LOC: ER 22:47 → EDBD 22:47 → TELE 04-10 06:13 → DOU IN ICU 04-11 05:37 → TELE-EAST 04-12 18:11
PROVIDERS: ADMIT Internal Medicine; ATTEND Internal Medicine
PROC: 5A09457 Assistance with Respiratory Ventilation, 24-96 Consecutive Hours, Continuous Positive Airway Pressure (ICD-10-PCS; principal; 2023-04-09)
PROC: 05HA33Z Insertion of Infusion Device into Left Brachial Vein, Percutaneous Approach (ICD-10-PCS; 2023-04-11)
PROC: B54NZZA Ultrasonography of Left Upper Extremity Veins, Guidance (ICD-10-PCS; 2023-04-11)
DX: A41.9 Sepsis, unspecified organism (principal); J96.21 Acute and chronic respiratory failure with hypoxia; J15.69 Pneumonia due to other Gram-negative bacteria; J10.00 Influenza due to other identified influenza virus with unspecified type of pneumonia; I21.A1 Myocardial infarction type 2; I11.0 Hypertensive heart disease with heart failure; S36.119A Unspecified injury of liver, initial encounter; J15.9 Unspecified bacterial pneumonia; I50.9 Heart failure, unspecified; J44.0 Chronic obstructive pulmonary disease with (acute) lower respiratory infection; J44.1 Chronic obstructive pulmonary disease with (acute) exacerbation; F32.A Depression, unspecified; F41.9 Anxiety disorder, unspecified; M19.90 Unspecified osteoarthritis, unspecified site; M54.50 Low back pain, unspecified; Z20.822 Contact with and (suspected) exposure to COVID-19; E78.5 Hyperlipidemia, unspecified; B37.9 Candidiasis, unspecified; E11.9 Type 2 diabetes mellitus without complications; X58.XXXA Exposure to other specified factors, initial encounter; R74.01 Elevation of levels of liver transaminase levels; R91.8 Other nonspecific abnormal finding of lung field; Z90.710 Acquired absence of both cervix and uterus; Z98.51 Tubal ligation status; Y93.89 Activity, other specified; Y92.89 Other specified places as the place of occurrence of the external cause; Y99.8 Other external cause status
CPT/HCPCS: 36415; 36600; 71045; 71250; 74176; 80048; 80053; 81001; 82270; 82607; 82746; 82805; 82962; 83036; 83540; 83550; 83605; 83735; 83880; 84443; 84484; 85007; 85025; 85027; 85379; 85610; 85730; 87081; 87086; 87426; 87804; 93005; 93306; 93970; 94640; 94660; 96361; 96365; 96367; 96372; 96375; 99291; G0378; J1815; J1956

== ENCOUNTER 2024-03-03 13:34 | Inpatient (IN) | payer OTHER, MEDICAID ==
[~2024-03-03] VITALS: Ht 154.9 cm; Wt 49.0 kg
[2024-03-03 13:34] VITALS: PULSE 128; RESP 30; O2SAT 92
[~2024-03-03 13:34] MED LIST changes: +ALBU108A5 IN; +BLOO1KIT60 XX; +CELE200C PO; +CHOL20007 PO; +DOXY100C79 PO; +FLUT1AER3 IN; +LOSA-534 PO; +METF-370 PO; +METH-1181 PO; +SIMV40TA18 PO; +TAMIFLU PO; +TRAZ-228 PO
[2024-03-03] MEDS: ETOMIDATE (2MG/ML) 20ML VIAL IV ONE ×2 (13:35→14:21)
[2024-03-03] MEDS: SUCCINYLCHOLINE CHLORIDE 20 MG/ML 10ML VIAL IV ONE (13:35)
[2024-03-03] MEDS: MIDAZOLAM DRIP 50 mg/50mL 50 ML IV SCH (13:40)
--- NOTE | 2024-03-03 13:44 | ECG ---
[facility] Test Date: 2024-03-03 Test Time: 13:42:58 Pat Name: CASEY MORAN Department: ED Room: 0235T Gender: F Child Care Centre Manager: ANIYAH : 1960 Requested By: ERICK PADRON Order Number: [id number] Reading MD: Alek Peterson Measurements Intervals [place] Rate: 108 P: 76 ID: 128 QRS: 76 QRSD: 88 T: 81 QT: 341 QTc: 457 Interpretive Statements Sinus tachycardia Left ventricular hypertrophy Electronically Signed On 03-13-2024 12:48:28 PST by Alek Peterson Please click the below link to view image of tracing.
[2024-03-03] MEDS: MIDAZOLAM DRIP 50 mg/50mL 50 ML IV ONE (13:54)
[2024-03-03] MEDS: fentaNYL Drip 2500mCg/250mlNS 250 ML IV ONE (13:55)
[2024-03-03 14:01] LABS: Urine Bacteria None Seen /hpf (None Seen)
--- NOTE | 2024-03-03 14:17 | ED.PDOC ---
History of Present Illness HPI Comments 64 y/o F, with a Hx of acute hypoxic respiratory failure, asthma, COPD w/home O2 use, DM II, HLD, HTN, NSTEMI II, sepsis, and previous URI, is BIBA for c/o shortness of breath for 3-4 days. Per EMS report, patient's family are poor historians and states on patient having difficulty breathing for the past 3-4 days that worsened, suddenly, today w/o relief or improvement with at-home albuterol inhaler use. On scene, patient was found on scene by EMS staff on 75% on her 2-3lpm home O2, tachycardic, and with strong radial pulse. En route, patient was given 5mg Albuterol and 0.5mg Atrovent and placed on CPAP with no relief prior to being given 0.3ml epinephrine IM and having O2 raised to 10lpm. Upon arrival to ED, patient is stated to have a SpO2 of 96% on 10lpm but still having heavy [id number]. Patient has no other reported associated symptoms at this time. 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 Time Seen by MD: 13:25 Primary Care Provider: Linda DE LA FUENTE Reviewed Notes: Nurses Notes, Casino Shift Manager Notes, Medications, Allergies Allergies: Coded Allergies: Amitriptyline (Verified Allergy, Unknown, 08/22/22) Fluoxetine (Verified Allergy, Unknown, 11/06/17) Gabapentin (Verified Allergy, Unknown, 11/06/17) NSAIDs (Verified Allergy, Unknown, 11/06/17) Home Meds Active Scripts Blood Glucose Monitoring Suppl (D-Care Glucometer Kit/Glu W/Device) 1 Kit Kit, KIT XX, #1 Prov:PAULA OCHOA MD 04/15/23 Metformin Hydrochloride (Metformin Hcl) 500 Mg Tab, 1 TAB PO BID, #60 TAB 3 Refills Prov:PAULA OCHOA MD 04/15/23 Doxycycline (Monohydrate) (Doxycycline) 100 Mg Cap, 100 MG PO BID for 5 Days, #10 CAP Prov:ANA BONILLA MD 04/12/23 Oseltamivir Phosphate (Tamiflu) 75 Mg Cap, 75 MG PO Q12HR for 3 Days, #6 CAP Prov:AAN BONILLA MD 04/12/23 Prednisone (Prednisone) 20 Mg Tab, 20 MG PO BID for 5 Days, #10 TAB Prov:ANA BONILLA MD 04/12/23 Prednisone (Prednisone) 20 Mg Tab, 20 MG PO BID for 5 Days, #10 TAB Prov:ANA BONILLA MD 08/25/22 Information Source: Emergency Med Personnel Mode of Arrival: EMS Severity: Moderate Timing: Days Duration: Since onset Prehospital treatment: 12 Lead EKG, Maintenance Groundman, C-Pap, Oxygen Past Medical History PAST MEDICAL HISTORY: Anxiety, Arthritis, Asthma, COPD (w/2-4lpm home O2), Depression, DM (type II), High Lipids, HTN, ID (NSTEMI type II) Past Medical History (Other): acute hypoxic respiratory failure, influenza and PNA infection, sepsis Surgical History: , Hysterectomy, Tubal Ligation WASTE CHOPPER History: No Pertinent WASTE CHOPPER History Family History Family History: No family hx of Cancer, No family hx of DM, No family hx of HTN Social History Smoker: Cigarettes Alcohol: Occasionally Drugs: Denies Drug Use Lives In: Home Constitutional: denies: chills, diaphoresis, fatigue, fever, malaise, sweats, weakness, others EENTM: denies: blurred vision, double vision, ear bleeding, ear discharge, ear drainage, ear pain, ear ringing, eye pain, eye redness, hearing loss, mouth pain, mouth swelling, nasal discharge, nose bleeding, nose congestion, nose p ain, photophobia, tearing, throat pain, throat swelling, voice changes, others Respiratory: reports: shortness of breath; denies: cough, hemoptysis, orthopnea, SOB at rest, SOB with excertion, stridor, wheezing, others Cardiovascular: denies: chest pain, dizzy spells, diaphoresis, Dyspnea on exertion, edema, irregular heart beat, left arm pain, lightheadedness, palpitations, PND, syncope, others Gastrointestinal: denies: abdomen distended, abdominal pain, blood streaked bowels, constipated, diarrhea, dysphagia, difficulty swallowing, hematemesis, melena, nausea, poor appetite, poor fluid intake, rectal bleeding, rectal pain, vomiting, others Genitourinary: denies: abnormal vagina bleeding, burning, dyspareunia, dysuria, flank pain, frequency, hematuria, incontinence, pain, , vagina discharge, urgency, others Neurological: denies: dizziness, fainting, headache, left sided numbness, left sided weakness, numbness, paresthesia, pre-existing deficit, right sided numbness, right sided weakness, seizure, speech problems, tingling, tremors, weakness, others Musculoskeletal: denies: back pain, gout, joint pain, joint swelling, muscle pain, muscle stiffness, neck pain, others Integumetry: denies: bruises, change in color, change in hair/nails, dryness, laceration, lesions, lumps, rash, wounds, others Allergic/Immunocompromised: denies: Difficulty Healing, Frequent Infections, Hives, Itching, others Hematologic/Lymphatic: denies: anemia, blood clots, easy bleeding, easy bruising, swollen glands, others Endocrine: denies: excessive hunger, excessive sweating, excessive thirst, excessive urination, flushing, intolerance to cold, intolerance to heat, unexpl ained weight gain, unexplained weight loss, others Psychiatric: denies: anxiety, bipolar disorder, depression, hopeless, panic disorder, schizophrenia, sleepless, suicidal, others All Other Systems: Reviewed and Negative Physical Exam General Appearance: Severe Distress HEENT: Normal ENT Inspection, Pharynx Normal, TMs Normal Neck: Full Range of Motion, Non-Tender, Normal, Normal Inspection Respiratory: Accessory Muscle Use, Chest Non-Tender, Decreased Breath Sounds, Respiratory Distress, Wheezing Cardiovascular: No Edema, No JVD, No Murmur, No Gallop, Tachycardia Breast Exam: Deferred Gastrointestinal: No Organomegaly, Non Tender, No Pulsatile Mass, Normal Bowel Sounds, Soft Genitalia: Deferred Pelvic: Deferred Rectal: Deferred Extremities: No calf tenderness, Normal capillary refill, No pedal edema Musculoskeletal : Apperance: Normal Neurologic: collaborating supervising physician II-XII nml as Tested, Motor Weakness, No Sensory Deficits, Other (Altered mental status) Cerebellar Function: Unable to Test Reflexes: Normal Skin: Dry, Pallor, Warm Lymphatic: No Adenopathy Was a procedure done? Was a procedure done?: Yes Sedation Sedation?: Yes Informed consent obtained: Yes Sedation start time: 13:25 Sedation end time: 13:36 Sedation total time: 11 minutes Central Line Recorder of insertion practice: Interventional Nurse Occupation of environmental restoration planner: Attending Physician Indication: Inability to obtain IV Room prepared for procedure: Yes Interventional Nurse performed hand hygien: Yes Maximal sterile barrier precau: Mask/Eye shield, Sterile gown, Cap, Sterlie gloves, Large sterlie drape Skin Preparation: Chlorhexidine gluconate, Alcohol Skin preparation completely dr: Yes Insertion site: Internal jugular Central line catheter type: Gby-agubqdta-fpk dialysis Number of lumens: 3 Central line exchanged over a: No Antiseptic ointment applied to: No Intubation Indication: Respiratory Insufficiency, Airway Protection Prep: Preoxygenation Pretreated with: Sedation (continous versed ) Medicated with: Other (20mg etomidate, 60 mg succinylcholine) Intubation Approach: Orotracheal (7.5) Intubation size: cm (7.5, 22cm at the lip) Informed consent obtained: No Risks/benefits/alt described: No EKG EKG : Pulse Rate (adult): 108 [place]: Normal Cardiac Rhythm: ST Block: None Hypertrophy: LVH ST: Normal Differential Dx Considerations may include: COPD exacerbation, asthma exacerbation, PE, bronchitis, PNA, viral syndrome, URI, acute respiratory distress X-Ray, Labs, Meds, VS Vital Signs Date Time Temp Pulse Resp B/P (MAP) Pulse Ox O2 Delivery O2 Flow Rate FiO2 03/03/24 16:45 99.5 89 24 115/68 (84) 99 99.5 03/03/24 16:30 113/62 03/03/24 16:30 99.5 86 24 113/62 (79) 99 99.5 03/03/24 16:15 99.5 85 24 119/68 (85) 99 99.5 03/03/24 16:00 99.5 82 24 110/62 (78) 99 99.5 03/03/24 15:49 97.3 102 24 91/53 97 60 97.3 03/03/24 15:46 102 24 91/53 (66) 97 60 03/03/24 15:45 99.5 81 24 101/63 (76) 98 99.5 03/03/24 15:40 76/44 03/03/24 15:34 92 03/03/24 15:30 99.5 84 24 91/53 (66) 98 99.5 03/03/24 15:25 73/50 03/03/24 15:20 76/49 03/03/24 15:20 76/49 03/03/24 15:15 95 17 76/46 (56) 99 03/03/24 15:15 72/50 03/03/24 15:10 72/50 03/03/24 15:00 100 16 117/34 (61) 100 03/03/24 14:44 100 16 85/54 (64) 100 03/03/24 14:44 85/54 03/03/24 14:20 122/76 03/03/24 14:17 108 03/03/24 14:15 107 16 122/76 (91) 98 03/03/24 14:05 113 16 173/92 (119) 91 03/03/24 13:58 115 16 186/105 (132) 100 100 03/03/24 13:55 208/103 03/03/24 13:42 109 03/03/24 13:40 201/99 03/03/24 13:34 97.3 128 30 263/143 (183) 92 03/03/24 13:34 128 30 92 Bi-Pap+ 100 100 Lab Test 03/03/24 16:40 03/03/24 16:15 03/03/24 15:42 03/03/24 15:08 Range/Units Blood Gas Specimen Type Arterial Arterial Blood Gas Sample Site Right radial Right radial Blood Gas Patient Temperature 37.0 37.0 Arterial Blood Date Drawn [id number] Arterial Blood pH 7.376 7.262 L 7.350-7.450 Arterial Blood Partial Pressure CO2 43.7 65.3 *H 32.0-45.0 mmHg Arterial Blood Partial Pressure O2 205.0 H 69.1 L 83.0-108.0 mmHg Arterial Blood HCO3 25.0 28.8 H 21.0-28.0 mmol/L Arterial Blood Oxygen Saturation 99.4 H 94.3 94.0-98.0 % Arterial Blood Base Excess -0.3 0.4 -2.0-3.0 mmol/L Arterial Blood Oxyhemoglobin 97.8 92.8 L 94.0-98.0 % Arterial Blood Carboxyhemoglobin 0.9 1.0 0.5-1.5 % Arterial Blood Methemoglobin 0.7 0.6 0.0-1.5 % [place] Test Modified Modified Blood Gas Total Hemoglobin 12.60 12.10 12.0-16.0 g/dL Blood Gas Set Respiration Rate 24.0 16.0 Blood Gas Modality Vent - ac Vent - ac FiO2 % 60.0 100.0 Blood Gas Tidal Volume 400.0 400.0 Blood Gas PEEP or CPAP 5.0 5.0 Troponin I High Sensitivity Pending Influenza Type A Antigen Negative Negative Influenza Type B Antigen Positive Negative SARS-CoV-2 Antigen (Rapid) Negative NEGATIVE Blood Gas Critical Value Read Back Yes Blood Gas Notified Whom Blood Gas Notified Time [id number] Blood Gas Notified By Police Investigator glenroy Howard 03/03/24 14:36 03/03/24 13:38 Range/Units White Blood Count 9.4 4.4-10.8 10^3/uL Red Blood Count 3.80 L 4.0-5.20 10^6/uL Hemoglobin 11.2 L 12.2-16.2 g/dL Hematocrit 34.7 L 36.0-46.0 % Mean Corpuscular Volume 91.3 80.0-100.0 fL Mean Corpuscular Hemoglobin 29.3 28.0-32.0 pg Mean Corpuscular Hemoglobin Concent 32.2 32.0-36.0 g/dL Red Cell Distribution Width 17.2 H 11.8-14.3 % Platelet Count 197 140-450 10^3/uL Mean Platelet Volume 10.1 6.9-10.8 fL Neutrophils (%) (Auto) 85.7 H 37.0-80.0 % Lymphocytes (%) (Auto) 4.5 L 10.0-50.0 % Monocytes (%) (Auto) 5.6 0.0-12.0 % Eosinophils (%) (Auto) 3.5 0.0-7.0 % Basophils (%) (Auto) 0.7 0.0-2.0 % Neutrophils # (Auto) 8.1 1.6-8.6 10 ^3/uL Lymphocytes # (Auto) 0.4 0.4-5.4 10 ^3/uL Monocytes # (Auto) 0.5 0-1.3 10 ^3/uL Eosinophils # (Auto) 0.3 0-0.8 10 ^3/uL Basophils # (Auto) 0.1 0-0.2 10 ^3/uL Nucleated Red Blood Cells 0.0 % D-Dimer, Quantitative 0.31 0.0-0.49 mg/L FEU Sodium Level 144 136-145 mmol/L Potassium Level 3.8 3.5-5.1 mmol/L Chloride Level 107 98-107 mmol/L Carbon Dioxide Level 32 H 20-31 mmol/L Anion Gap 5 5-15 Blood Urea Nitrogen 11 9-23 mg/dL Creatinine 0.63 0.550-1.02 mg/dL Glomerular Filtration Rate Calc 98 >90 mL/min BUN/Creatinine Ratio 17.5 10.0-20.0 Serum Glucose 143 H 74-106 mg/dL Lactic Acid Level 1.4 0.4-2.0 mmol/L Calcium Level 9.3 8.7-10.4 mg/dL Troponin I High Sensitivity 150 *H </=34 ng/L B-Type Natriuretic Peptide 49.78 0-100 pg/mL Urine Color Yellow Yellow Urine Clarity Clear Clear Urine pH 6.0 5.0-9.0 Urine Specific [place] 1.022 1.001-1.035 Urine Protein 1+ H Negative Urine Ketones 2+ H Negative Urine Blood Negative Negative /uL Urine Nitrite Negative Negative Urine Bilirubin Negative Negative Urine Urobilinogen 4 H Negative mg/dL Urine Leukocyte Esterase Negative Negative /uL Urine RBC 1 0 - 4 /hpf Urine WBC 2 0 - 5 /hpf Urine Squamous Epithelial Cells Few <5 /hpf Urine Bacteria None seen None Seen /hpf Urine Hyaline Casts Few 0 - 2 /lpf Urine Mucus Few None Seen Urine Glucose Normal Normal mg/dL Current Medications Medications (Trade) Dose Ordered Sig/Aida Route Start Time Stop Time Status Last Admin Methylprednisolone Sodium Succinate (Solu Medrol) 125 mg ONCE ONCE IV 03/03/24 13:45 03/03/24 14:20 DC 03/03/24 15:44 Ipratropium Fosters (Atrovent Medneb) 0.5 mg ONCE ONCE N 03/03/24 13:45 03/03/24 14:20 DC 03/03/24 16:06 Albuterol (Ventolin Medneb) 10 mg ONCE ONCE N 03/03/24 13:45 03/03/24 14:20 DC 03/03/24 16:06 Etomidate 20 mg ONCE ONCE IV 03/03/24 14:00 03/03/24 14:21 DC 03/03/24 13:35 Succinylcholine Chloride (Quelicin) 60 mg ONCE ONCE IV 03/03/24 14:00 03/03/24 14:21 DC 03/03/24 13:35 Fentanyl Citrate 250 ml @ 2.5 mls/hr Q24H IV 03/03/24 14:15 03/03/24 14:20 Midazolam HCl 50 ml @ 1 mls/hr Q24H IV 03/03/24 14:15 03/03/24 13:40 Etomidate 20 mg ONCE ONCE IV 03/03/24 14:30 03/03/24 14:31 DC 03/03/24 14:21 Norepinephrine Bitartrate 250 ml @ 3.75 mls/hr Q24H IV 03/03/24 14:45 03/03/24 14:44 IV Hep-Lock was established The patient was immediately intubated upon arrival to the emergency department's We intubated with a 7.5 endotracheal tube The patient was given 125 mg IV push The patient was given a continuous breathing treatment of albuterol and Atrovent. The patient is being placed on fentanyl as well as Versed for sedation at this time The patient was given etomidate 20 mg IV push and succinylcholine for the intubation The patient has hypotension so the patient was started on norepinephrine. The urine test is negative The patient's 1st troponin level came back at 1:50 a.m. and the rest of the chemistry panel is within normal limits The patient's CBC shows some anemia with a hemoglobin of 11.2 and hematocrit is 34.7 The patient has been getting serial ABGs and we have been adjusting the ve ntilator per findings. The influenza B came back positive. At this time, the patient was being admitted at this time The patient will be admitted to the ICU. We did spend time with critical Care based on bedside management and interpretation of labs and speaking with consultants. Images Reviewed?: Images reviewed and evaluated by me Time of 1ST Reevaluation: 13:55 Reevaluation 1ST: Unchanged Patient Education/Counseling: Other (patient intubated ) Family Education/Counseling: No Family Present Departure 1 Departure Time of Disposition: 16:59 Impression: Primary Impression: Acute respiratory failure Qualified Codes: J96.01 - Acute respiratory failure with hypoxia Additional Impressions: Influenza B Generalized weakness Disposition: ADMITTED INPATIENT Admit to: ICU Condition: Critical Critical Care Note Critical Care Time?: Yes Stability Stability form required: Yes Unstable for transfer: ICU, CCU, PCU, [facility] (Intensive VS monitoring), ED Physician Assesment (Clinical assesment) Heart Score Heart Score: Heart Score Response (Comments) Value History Highly Suspicious 2 EKG Normal 0 Age >65 2 Risk Factors >3 or Hx ASHD 2 Troponin 1-2 x's Normal limit 1 Total 7 I personally scribed for ERICK PADRON MD ([email or web address]) on 03/03/24 at 14:17. Electronically submitted by Kike Page ([email or web address]). I personally scribed for ERICK PADRON MD ([email or web address]) on 03/03/24 at 14:25. Electronically submitted by Kike Page ([email or web address]). ERICK PADRON MD Mar 03, 2024 14:17
[2024-03-03 14:18] LABS: Urine Blood Negative /uL (Negative); Urine Clarity Clear (Clear); Urine Color Yellow (Yellow); Urine Hyaline Cast FEW /lpf (0 - 2); Urine Mucus FEW (None Seen); Urine Protein, UAD 1+ (Negative); Urine Specific Gravity 1.022 (1.001-1.035); Urine Urobilinogen 4 mg/dL (Negative); Urine WBC 2 /hpf (0 - 5)
[2024-03-03] MEDS: fentaNYL Drip 2500mCg/250mlNS 250 ML IV SCH (14:20)
[2024-03-03] MEDS: NOREPINEPHRINE 8 MG/250ML KIT 250 ML IV ONE (14:41)
[2024-03-03] MEDS: NOREPINEPHRINE 8 MG/250ML KIT 250 ML IV SCH (14:44)
[2024-03-03 14:54] LABS: Basophils # (auto) 0.1 10 ^3/uL (0-0.2); Basophils % (auto) 0.7 % (0.0-2.0); Eosinophils # (auto) 0.3 10 ^3/uL (0-0.8); Eosinophils % (auto) 3.5 % (0.0-7.0); Hematocrit 34.7 % (36.0-46.0); Hemoglobin 11.2 g/dL (12.2-16.2); Lymphocytes # (auto) 0.4 10 ^3/uL (0.4-5.4); Lymphocytes % (auto) 4.5 % (10.0-50.0); Mean Corpuscular Hemoglobin 29.3 pg (28.0-32.0); Mean Corpuscular Hgb Conc. 32.2 g/dL (32.0-36.0); Mean Corpuscular Volume 91.3 fL (80.0-100.0); Monocytes # (auto) 0.5 10 ^3/uL (0-1.3); Monocytes % (auto) 5.6 % (0.0-12.0); Neutrophils # (auto) 8.1 10 ^3/uL (1.6-8.6); Neutrophils % (auto) 85.7 % (37.0-80.0); Platelet Count (auto) 197 10^3/uL (140-450); Red Cell Distribution Width 17.2 % (11.8-14.3); White Blood Cell 9.4 10^3/uL (4.4-10.8)
--- NOTE | 2024-03-03 14:58 | DVHNC2 ---
Central Line Recorder of insertion practice: Cable Inspector Occupation of feeder catcher tobacco: Other (Resident) Indication: Hypotension, CVP monitoring, Inability to obtain IV Room prepared for procedure: Yes Cable Inspector performed hand hygien: Yes Maximal sterile barrier precau: Mask/Eye shield, Sterile gown, Cap, Sterlie gloves, Large sterlie drape Skin Preparation: Chlorhexidine gluconate Skin preparation completely dr: Yes Insertion site: Left, Internal jugular, Line secured Number of lumens: 3 Central line exchanged over a: No Antiseptic ointment applied to: Yes Post Assessment: Chest X-Ray Informed consent obtained: No Risks/benefits/alt described: No Notes Patient hemodynamically unstable, placed without consent. Supervised by Dr Gallegos. Date of Service: Mar 03, 2024 Billing Provider: JACKELYN GALLEGOS MD Common Visit Codes: PROCEDURE ONLY Procedure Codes: [id number] NON-TUNNEL CV CATH ZAID KRAUSE RESIDENT Mar 03, 2024 14:58
[2024-03-03 15:04] LABS: Chloride 107 mmol/L (98-107); Potassium 3.8 mmol/L (3.5-5.1); Sodium 144 mmol/L (136-145)
[2024-03-03 15:05] LABS: Anion Gap 5 (5-15); Calcium 9.3 mg/dL (8.7-10.4); Carbon Dioxide 32 mmol/L (20-31)
[2024-03-03 15:10] LABS: BUN/Creatinine Ratio 17.5 (10.0-20.0); Blood Urea Nitrogen 11 mg/dL (9-23); Glucose 143 mg/dL (74-106)
[2024-03-03 15:13] LABS: Base Excess 0.4 mmol/L (-2.0-3.0)
--- NOTE | 2024-03-03 15:21 | DVH ---
CHEST RADIOGRAPH Indication:sob Technique: Single frontal view of the chest was obtained Comparison: XY CHEST PORTABLE on DOS: 04/15/23, XY CHEST PORTABLE on DOS: 04/12/23, XY CHEST XRAY 1 V IEW on DOS: 04/09/23 FINDINGS: Lines and Tubes: Endotracheal tube in place 3 cm above the pedro. Enteric tube below the left diaphr agm in the stomach. Lungs: No focal consolidation. Pleura: No effusion. No pneumothorax. Cardiomediastinal contours: Unremarkable Bones: No acute osseous abnormality. IMPRESSION: 1. Endotracheal tube 3 cm above the pedro. 2. Enteric tube in the stomach 3. Internal jugular catheter from the left in the superior vena cava above the right atrium.
--- NOTE | 2024-03-03 15:35 | ECG ---
[facility] Test Date: 2024-03-03 Test Time: 15:34:03 Pat Name: CASEY MORAN Department: er Room: 0235T Gender: F Water Resource Manager: chandrika : 1960 Requested By: ERICK PADRON Order Number: [id number] Reading MD: Alek Peterson Measurements Intervals [place] Rate: 92 P: 81 MN: 125 QRS: 69 QRSD: 91 T: 89 QT: 384 QTc: 476 Interpretive Statements Sinus rhythm Right atrial enlargement Consider left ventricular hypertrophy Baseline wander in lead(s) V2,V5 Electronically Signed On 03-13-2024 12:48:52 PST by Alek Peterson Please click the below link to view image of tracing.
[2024-03-03] MEDS: methylPREDNISolone SOD SUCC 125 MG/2 ML VL IV ONE (15:44)
[2024-03-03 15:49] VITALS: BP 91/53; PULSE 102; RESP 24; TEMP 97.3; O2SAT 97
[2024-03-03] MEDS: IPRATROPIUM BROM 0.5 MG/2.5ML INH SOL HHN ONE (16:06)
[2024-03-03] MEDS: ALBUTEROL SULF 2.5 MG/0.5ML(0.5%) NEB SOLN HHN ONE (16:06)
[2024-03-03 16:08] LABS: COVID19 ANTIGEN SOFIA FIA NEGATIVE (NEGATIVE)
[2024-03-03 16:09] LABS: Rapid Influenza A Negative (Negative)
[2024-03-03 16:10] LABS: Rapid Influenza B Positive (Negative)
[2024-03-03 16:44] LABS: Base Excess -0.3 mmol/L (-2.0-3.0)
[2024-03-03] MEDS ORDERED: ONDANSETRON HCL 4 MG/2 ML VIAL IV PRN (17:00)
[2024-03-03] MEDS ORDERED: DEXTROSE (50%) 50ML SYRG IV PRN (17:00)
[2024-03-03] MEDS ORDERED: MORPHINE SULFATE INJ 2 MG/ml SYRG IV PRN (17:15)
[2024-03-03] MEDS ORDERED: NITROGLYCERIN 0.4 MG SL TAB SL PRN (17:15)
--- NOTE | 2024-03-03 17:15 | DVHHP2 ---
History of Present Illness Reason for Visit: Acute respiratory failure History of Present Illness The patient is a 64-year-old female with multiple past medical history including COPD, depression, DM, asthma, hypertension, and MT who presented to [facility] ED with complaint of shortness of breaths for a proximally 4 days duration. As reported by EMS, patient's family states patient was having difficulty breathing, suddenly worsened so EMS were called. When EMS arrived on the scene, the patient was found on respiratory distress with hypoxia O2 saturation at 75%, tachycardic, and was given breathing treatment, placed on CPAP with no relief prior to being given 0.3mL epinephrine en route to our facility ED. patient was seen and evaluated in the ED, with improved O2 saturation at 96% bed CT having heavy work of breathing and was immediately intubated upon arrival to the emergency department. Laboratory data shows WBC 9.4, platelets 197, sodium 144, potassium 3.8, BUN 11, creatinine 0.63, BNP 49.78, troponin 150, serology reports positive for influenza B, blood pressure 263/143 trending down to 122/76, heart rate 108, temperature 97.3 F, O2 saturation 99% on ventilator. Please see medication orders section in the computer. On my assessment, patient remains fully intubated, no diaphoresis, no vomiting, no chills. Patient was admitted for further evaluation and medical management. Past Medical History Anxiety, Arthritis, Asthma, COPD, Depression, DM, High Lipids, HTN, MT (NSTEMI type II) Acute hypoxic respiratory failure, influenza and PNA infection, Sepsis Past Surgical History , Hysterectomy, Tubal Ligation Family History Reviewed, noncontributory to the management of this case. Past Social History Patient lives at home, smokes cigarettes, drinks alcohol occasionally, denies illicit drugs abuse. Review of Systems Constitutional: Yes: Weakness; No: Fever, Chills, Sweats, Malaise, Other Eyes: No: Pain, Vision change, Conjunctivae inflammation, Eyelid inflammation, Other, Redness ENT: No: Ear pain, Ear discharge, Nose pain, Nose discharge, Nose congestion, Mouth pain, Mouth swelling, Throat pain, Throat swelling, Other Respiratory: Shortness of breath, SOB with excertion, Other (SOB at rest); No: Cough, Dry, Wheezing, Hemoptysis, Pleuritic Pain, Sputum, Wheezing Cardiovascular: No: Chest Pain, Palpitations, Orthopnea, Paroxysmal Noc. Dyspnea, Edema, Lt Headedness, Other Gastrointestinal: No: Nausea, Vomiting, Abdominal Pain, Diarrhea, Constipation, Melena, Hematochezia, Other Genitourinary: No Dysuria, No Frequency, No Incontinence, No Hematuria, No Retention, No Other Musculoskeletal: No: other, neck pain, shoulder pain, arm pain, back pain, hand pain, leg pain, foot pain Skin: No: Rash, Lesions, Jaundice, Bruising, Other Neurological: Weakness; No: Numbness, Incoordination, Change in speech, Confusion, Seizures, Other Allergies: Coded Allergies: Amitriptyline (Verified Allergy, Unknown, 08/22/22) Fluoxetine (Verified Allergy, Unknown, 11/06/17) Gabapentin (Verified Allergy, Unknown, 11/06/17) NSAIDs (Verified Allergy, Unknown, 11/06/17) Medications Current Medications Medications Dose Ordered Sig/Aida Route Start Time Stop Time Status Last Admin Dose Admin Fentanyl Citrate 250 ml @ 2.5 mls/hr Q24H IV 03/03/24 14:15 03/03/24 14:20 2.5 MLS/HR Midazolam HCl 50 ml @ 1 mls/hr Q24H IV 03/03/24 14:15 03/03/24 13:40 1 MLS/HR Norepinephrine Bitartrate 250 ml @ 3.75 mls/hr Q24H IV 03/03/24 14:45 03/03/24 14:44 3.75 MLS/HR Methylprednisolone Sodium Succinate 40 mg Q8HR IV 03/03/24 22:00 UNV Famotidine 20 mg Q12HR IV 03/03/24 22:00 UNV Albuterol 2.5 mg Q4HPRN PRN NEB 03/03/24 17:00 UNV Ipratropium [place] 0.5 mg Q4HPRN PRN NEB 03/03/24 17:00 UNV Hydralazine HCl 10 mg Q6HP PRN IV 03/03/24 17:00 UNV Diagnostic Test (Pha) 1 strip Q6HR 03/03/24 18:00 UNV Insulin Human Regular Q6HR SC 03/03/24 18:00 UNV Dextrose 50 ml UD PRN IV 03/03/24 17:00 UNV Sodium Chloride 10 ml Q8HR IV 03/03/24 22:00 UNV Ondansetron HCl 4 mg Q4HP PRN IV 03/03/24 17:00 UNV Exam Vital Signs Vital Signs Date Time Temp Pulse Resp B/P (MAP) Pulse Ox O2 Delivery O2 Flow Rate FiO2 03/03/24 16:45 99.5 89 24 115/68 (84) 99 99.5 03/03/24 15:49 60 03/03/24 13:34 Bi-Pap+ General Appearance: Other (Fully intubated) HEENT: Atraumatic, EOMI, Mucous membr. moist/pink Respiratory: Normal air movement, Other (Fully intubated) Cardiovascular: Regular rate, Normal S1, Normal S2, No murmurs Abdominal: Normal bowel sounds, Soft, No tenderness, No hepatospenomegaly, No masses Extremities: No clubbing, No cyanosis, No edema, Normal pulses, No tenderness/swelling Skin: No rashes, No breakdown, No significant lesion Neuro: Other (Generalized weakness) Psych/Mental Status: Other (Altered mental status) Labs/Xrays Labs Test 03/03/24 16:40 03/03/24 16:15 03/03/24 15:42 03/03/24 15:08 Range/Units Blood Gas Specimen Type Arterial Blood Gas Sample Site Right radial Blood Gas Patient Temperature 37.0 Arterial Blood Date Drawn [id number] Arterial Blood pH 7.376 7.350-7.450 Arterial Blood Partial Pressure CO2 43.7 32.0-45.0 mmHg Arterial Blood Partial Pressure O2 205.0 H 83.0-108.0 mmHg Arterial Blood HCO3 25.0 21.0-28.0 mmol/L Arterial Blood Oxygen Saturation 99.4 H 94.0-98.0 % Arterial Blood Base Excess -0.3 -2.0-3.0 mmol/L Arterial Blood Oxyhemoglobin 97.8 94.0-98.0 % Arterial Blood Carboxyhemoglobin 0.9 0.5-1.5 % Arterial Blood Methemoglobin 0.7 0.0-1.5 % Quinton Test Modified Blood Gas Total Hemoglobin 12.60 12.0-16.0 g/dL Blood Gas Set Respiration Rate 24.0 Blood Gas Modality Vent - ac FiO2 % 60.0 Blood Gas Tidal Volume 400.0 Blood Gas PEEP or CPAP 5.0 Troponin I High Sensitivity 359 *H </=34 ng/L Influenza Type A Antigen Negative Negative Influenza Type B Antigen Positive Negative SARS-CoV-2 Antigen (Rapid) Negative NEGATIVE Blood Gas Critical Value Read Back Yes Blood Gas Notified Whom Blood Gas Notified Time [id number] Blood Gas Notified By Lip Cutter And Scorer glenroy Howard 03/03/24 14:36 03/03/24 13:38 Range/Units White Blood Count 9.4 4.4-10.8 10^3/uL Red Blood Count 3.80 L 4.0-5.20 10^6/uL Hemoglobin 11.2 L 12.2-16.2 g/dL Hematocrit 34.7 L 36.0-46.0 % Mean Corpuscular Volume 91.3 80.0-100.0 fL Mean Corpuscular Hemoglobin 29.3 28.0-32.0 pg Mean Corpuscular Hemoglobin Concent 32.2 32.0-36.0 g/dL Red Cell Distribution Width 17.2 H 11.8-14.3 % Platelet Count 197 140-450 10^3/uL Mean Platelet Volume 10.1 6.9-10.8 fL Neutrophils (%) (Auto) 85.7 H 37.0-80.0 % Lymphocytes (%) (Auto) 4.5 L 10.0-50.0 % Monocytes (%) (Auto) 5.6 0.0-12.0 % Eosinophils (%) (Auto) 3.5 0.0-7.0 % Basophils (%) (Auto) 0.7 0.0-2.0 % Neutrophils # (Auto) 8.1 1.6-8.6 10 ^3/uL Lymphocytes # (Auto) 0.4 0.4-5.4 10 ^3/uL Monocytes # (Auto) 0.5 0-1.3 10 ^3/uL Eosinophils # (Auto) 0.3 0-0.8 10 ^3/uL Basophils # (Auto) 0.1 0-0.2 10 ^3/uL Nucleated Red Blood Cells 0.0 % D-Dimer, Quantitative 0.31 0.0-0.49 mg/L FEU Sodium Level 144 136-145 mmol/L Potassium Level 3.8 3.5-5.1 mmol/L Chloride Level 107 98-107 mmol/L Carbon Dioxide Level 32 H 20-31 mmol/L Anion Gap 5 5-15 Blood Urea Nitrogen 11 9-23 mg/dL Creatinine 0.63 0.550-1.02 mg/dL Glomerular Filtration Rate Calc 98 >90 mL/min BUN/Creatinine Ratio 17.5 10.0-20.0 Serum Glucose 143 H 74-106 mg/dL Lactic Acid Level 1.4 0.4-2.0 mmol/L Calcium Level 9.3 8.7-10.4 mg/dL B-Type Natriuretic Peptide 49.78 0-100 pg/mL Urine Color Yellow Yellow Urine Clarity Clear Clear Urine pH 6.0 5.0-9.0 Urine Specific [place] 1.022 1.001-1.035 Urine Protein 1+ H Negative Urine Ketones 2+ H Negative Urine Blood Negative Negative /uL Urine Nitrite Negative Negative Urine Bilirubin Negative Negative Urine Urobilinogen 4 H Negative mg/dL Urine Leukocyte Esterase Negative Negative /uL Urine RBC 1 0 - 4 /hpf Urine WBC 2 0 - 5 /hpf Urine Squamous Epithelial Cells Few <5 /hpf Urine Bacteria None seen None Seen /hpf Urine Hyaline Casts Few 0 - 2 /lpf Urine Mucus Few None Seen Urine Glucose Normal Normal mg/dL PATIENT: CASEY MORAN ACCT: [id number] UNIT: [id number] : 1960 LOC: ER ROOM / BED: / AGE / SEX: 64 / F ADM STATUS: REG ER SERVICE 1338 ORDERING PHYSICIAN: ERICK PADRON MD PROCEDURE(s): CXRP - CHEST PORTABLE REASON: sob ORDER NUMBER(s): [id number], ACCESSION NUMBER(s): [id number] CHEST RADIOGRAPH Indication:sob Technique: Single frontal view of the chest was obtained Comparison: XY CHEST PORTABLE on DOS: 04/15/23, XY CHEST PORTABLE on DOS: 04/12/23, XY CHEST XRAY 1 VIEW on DOS: 04/09/23 FINDINGS: Lines and Tubes: Endotracheal tube in place 3 cm above the pedro. Enteric tube below the left diaphragm in the stomach. Lungs: No focal consolidation. Pleura: No effusion. No pneumothorax. Cardiomediastinal contours: Unremarkable Bones: No acute osseous abnormality. IMPRESSION: 1. Endotracheal tube 3 cm above the pedro. 2. Enteric tube in the stomach 3. Internal jugular catheter from the left in the superior vena cava above the right atrium. Assessment/Plan Assessment/Plan Acute respiratory failure Acute respiratory failure with hypoxia Influenza B Hypertensive urgency Generalized weakness Plan 1. Admit to intensive care unit 2. Breathing treatment 3. Pain control management 4. IV antibiotic management 5. Management of fluids and electrolytes 6. Consultation for Cardiology/pulmonology 7. Diagnostic test chest x-ray 8. DVT prophylaxis on heparin 9. Repeat labs CBC, CMP in a.m. 10. Home medication reviewed and reconciled 11. Continue with current medical management 12. Treatment plan discussed with patient and RN. Patient is fully intubated. Plan discussed with: Patient, Other (RN) My Orders Orders - LIZETTE VUONG DNP Procedure Category Date Status Time *Consult CONS 03/03/24 Transmitted / 16:46 Methylprednisolone PHA 03/03/24 Logged Sod Succ (Solu Medrol 22:00 Famotidine Injection PHA 03/03/24 Logged (Pepcid Injection) 22:00 Albuterol Medneb PHA 03/03/24 Logged (Ventolin Medneb) 17:00 Ipratropium Medneb PHA 03/03/24 Logged (Atrovent Medneb) 17:00 * Cardiology Consult CONS 03/03/24 Transmitted 16:46 Hydralazine Injection PHA 03/03/24 Logged (Apresoline Inject 17:00 Glucose Blood PHA 03/03/24 Logged (Accu-Chek Comfort 18:00 Insulin R (Human) PHA 03/03/24 Logged (Insulin R) 18:00 Dextrose 50% Syringe PHA 03/03/24 Logged 17:00 Allergies BRIA 03/03/24 In Process 16:46 Code Status CODE 03/03/24 Transmitted 16:46 Sodium Chloride Lock PHA 03/03/24 Logged (Saline Lock Ns) 22:00 Oxygen Per Hour RT 03/03/24 Transmitted 16:46 Ondansetron Hcl PHA 03/03/24 Logged (Zofran) 17:00 Fall Risk Precautions BRIA 03/03/[address] 16:46 Complete Blood Count LAB 03/04/24 Verified 04:00 Comprehensive LAB 03/04/24 Verified Metabolic Panel 04:00 Npo (Nothing By DIET 03/03/24 Transmitted Mouth) Diet Dinner Echo 2d Mode Cardiac US 03/03/24 Logged DOP 16:46 Condition: Critical BRIA 03/03/24 In Process 16:46 Sequential BRIA 03/03/24 In Process Compression Device Thyroid Stimulating LAB 03/03/24 In Process Hormone 16:46 Problem List: (1) Acute respiratory failure (2) Influenza B (3) Generalized weakness (4) Hypertensive urgency (5) Acute respiratory failure with hypoxia Date of Service: Mar 03, 2024 Billing Provider: LIZETTE VUONG DNP Common Visit Codes: 41884-[id number] INP/OBS CARE (HIGH) LIZETTE VUONG DNP Mar 03, 2024 17:15
[2024-03-03] MEDS: ACCU-CHEK COMFORT CURVE STRIP VI SCH (17:35)
[2024-03-03] MEDS: AZITHROMYCIN 500MG/ 250ML 250 ML IV ONE (17:36)
[2024-03-03 17:39] LABS: Amphetamine Screen, Urine Neg (NEGATIVE); Barbiturate Scree,Urine Neg (NEGATIVE); Benzodiazephine Screen, Urine Neg (NEGATIVE); Cannabinoid Screen, Urine Neg (NEGATIVE); Cocaine Screen, Urine Pos (NEGATIVE); Opiate Scree,Urine Pos (NEGATIVE); Phencyclidine Screen, Urine Neg (NEGATIVE)
[2024-03-03] MEDS: InsuLIN REG 1unit/0.01ml Soln (100units/ml) SC SCH (17:41)
[2024-03-03 18:00] VITALS: BP 122/71; PULSE 90; RESP 24; O2SAT 97
[2024-03-03] MEDS: ALBUTEROL SULF 2.5 MG/0.5ML(0.5%) NEB SOLN NEB PRN (18:29)
[2024-03-03] MEDS: IPRATROPIUM BROM 0.5 MG/2.5ML INH SOL NEB PRN (18:29)
--- NOTE | 2024-03-03 18:38 | DVHINCON2 ---
Date of service: Mar 03, 2024 Referring Physician ASHLEE Vela Reason for Consultation Ventilator management, respiratory failure History of Present Illness 64-year-old woman history of COPD, depression, diabetes mellitus type 2, asthma, hypertension who presented with [facility] with a chief complaint of shortness of breath for the last four days. Patient was currently sedated, intubated on mechanical ventilator. History is obtained from EMS, RN MD Reyes for patient. She was found to be hypoxic with a pulse oximetry reading of 75%. She was tachycardic. She was initiated on CPAP therapy. She received epinephrine on route to the emergency department. She was having respiratory distress and was emergently intubated and placed on mechanical ventilator by ED physician. Pulmonary consultation is called due to acute hypoxic respiratory failure and mechanical ventilator management. Review of systems: 14 point review of systems unable to be obtained due to patient's critical condition. Past medical history: Anxiety, Arthritis, Asthma, COPD, Depression, DM, High Lipids, HTN, OR (NSTEMI type II), Acute hypoxic respiratory failure, influenza and PNA infection, Sepsis Past Surgical History: , Hysterectomy, Tubal Ligation Medications: Reviewed Allergies: Amitriptyline, fluoxetine, gabapentin, NSAIDs Family history: No family history of premature CAD. No family history of lung disease. Social history: Cigarette smoker. Social alcohol use. No illicit drug use. Lives at home. Family History: Patient reports no known family medical history. Allergies: Coded Allergies: Amitriptyline (Verified Allergy, Unknown, 08/22/22) Fluoxetine (Verified Allergy, Unknown, 11/06/17) Gabapentin (Verified Allergy, Unknown, 11/06/17) NSAIDs (Verified Allergy, Unknown, 11/06/17) Home Meds Active Scripts Blood Glucose Monitoring Suppl (D-Care Glucometer Kit/Glu W/Device) 1 Kit Kit, KIT XX, #1 Prov:PAULA OCHOA MD 04/15/23 Metformin Hydrochloride (Metformin Hcl) 500 Mg Tab, 1 TAB PO BID, #60 TAB 3 Refills Prov:PAULA OCHOA MD 04/15/23 Doxycycline (Monohydrate) (Doxycycline) 100 Mg Cap, 100 MG PO BID for 5 Days, #10 CAP Prov:ANA BONILLA MD 04/12/23 Oseltamivir Phosphate (Tamiflu) 75 Mg Cap, 75 MG PO Q12HR for 3 Days, #6 CAP Prov:ANA BONILLA MD 04/12/23 Prednisone (Prednisone) 20 Mg Tab, 20 MG PO BID for 5 Days, #10 TAB Prov:ANA BONILLA MD 04/12/23 Prednisone (Prednisone) 20 Mg Tab, 20 MG PO BID for 5 Days, #10 TAB Prov:ANA BONILLA MD 08/25/22 Current Medications Current Medications Medications (Trade) Dose Ordered Sig/Aida Route PRN Reason Start Time Stop Time Status Last Admin Fentanyl Citrate 250 ml @ 2.5 mls/hr Q24H IV 03/03/24 14:15 03/03/24 14:20 Midazolam HCl 50 ml @ 1 mls/hr Q24H IV 03/03/24 14:15 03/03/24 13:40 Norepinephrine Bitartrate 250 ml @ 3.75 mls/hr Q24H IV 03/03/24 14:45 03/03/24 14:44 Methylprednisolone Sodium Succinate (Solu Medrol) 40 mg Q8HR IV 03/03/24 22:00 Famotidine (Pepcid Injection) 20 mg Q12HR IV 03/03/24 22:00 Albuterol (Ventolin Medneb) 2.5 mg Q4HPRN PRN NEB SHORTNESS OF BREATH 03/03/24 17:00 Ipratropium [place] (Atrovent Medneb) 0.5 mg Q4HPRN PRN NEB SHORTNESS OF BREATH 03/03/24 17:00 Hydralazine HCl (Apresoline Injection) 10 mg Q6HP PRN IV SBP>150 03/03/24 17:00 Diagnostic Test (Pha) (Accu-Chek Comfort Curve T) 1 strip Q6HR 03/03/24 18:00 03/03/24 17:35 Insulin Human Regular (InsuLIN R) Q6HR SC 03/03/24 18:00 03/03/24 17:41 Dextrose 50 ml UD PRN IV Blood Sugar LESS THAN 60 03/03/24 17:00 Sodium Chloride (Saline Lock Ns) 10 ml Q8HR IV 03/03/24 22:00 Ondansetron HCl (Zofran) 4 mg Q4HP PRN IV NAUSEA / VOMITING 03/03/24 17:00 Azithromycin 250 ml @ 125 mls/hr DAILY IV 03/04/24 10:00 Nitroglycerin (Ntrostat Sublingual) 0.4 mg Q5MINP PRN SL FOR CHEST PAIN 03/03/24 17:15 Morphine Sulfate 2 mg Q30M PRN IV FOR CHEST PAIN 03/03/24 17:15 Vital Signs Vital Signs Date Time Temp Pulse Resp B/P (MAP) Pulse Ox O2 Delivery O2 Flow Rate FiO2 03/03/24 17:30 113/65 03/03/24 16:45 99.5 89 24 99 99.5 03/03/24 15:49 60 03/03/24 13:34 Bi-Pap+ Physical Exam Gen.: Patient lying in bed in medical ICU. Sedated, intubated on mechanical ventilator. Head: Normocephalic, atraumatic. Eyes: PERRLA. Ears: Normal external anatomy. Throat: Endotracheal tube and orogastric tube in place. Neck: Supple, trachea midline. Chest: Transmitted breath sounds bilaterally. Decreased air entry bilaterally. No wheezing. Bibasilar crackles. Cardio vascular: Positive S1, positive S2. Regular rate and rhythm. Abdomen: Positive bowel sounds in all 4 quadrants. Soft, nontender, nondistended. : Evans in place. Normal external genitalia. Rectal: Deferred Skin: Warm, dry. Intact. Extremities: 2+ radial pulses bilaterally. No lower extremity edema. Neuro: Sedated. Labs/Diagnostic Data Labs Test 03/03/24 18:11 03/03/24 17:34 03/03/24 16:40 03/03/24 15:42 Range/Units POC Glucose 194 H 70-106 mg/dl Blood Gas Specimen Type Arterial Blood Gas Sample Site Right radial Blood Gas Patient Temperature 37.0 Arterial Blood Date Drawn [id number] Arterial Blood pH 7.376 7.350-7.450 Arterial Blood Partial Pressure CO2 43.7 32.0-45.0 mmHg Arterial Blood Partial Pressure O2 205.0 H 83.0-108.0 mmHg Arterial Blood HCO3 25.0 21.0-28.0 mmol/L Arterial Blood Oxygen Saturation 99.4 H 94.0-98.0 % Arterial Blood Base Excess -0.3 -2.0-3.0 mmol/L Arterial Blood Oxyhemoglobin 97.8 94.0-98.0 % Arterial Blood Carboxyhemoglobin 0.9 0.5-1.5 % Arterial Blood Methemoglobin 0.7 0.0-1.5 % Quinton Test Modified Blood Gas Total Hemoglobin 12.60 12.0-16.0 g/dL Blood Gas Set Respiration Rate 24.0 Blood Gas Modality Vent - ac FiO2 % 60.0 Blood Gas Tidal Volume 400.0 Blood Gas PEEP or CPAP 5.0 Influenza Type A Antigen Negative Negative Influenza Type B Antigen Positive Negative SARS-CoV-2 Antigen (Rapid) Negative NEGATIVE Test 03/03/24 15:08 03/03/24 14:36 03/03/24 13:38 Range/Units Blood Gas Critical Value Read Back Yes Blood Gas Notified Whom Blood Gas Notified Time [id number] Blood Gas Notified By Gardening Instructor glenroy White Blood Count 9.4 4.4-10.8 10^3/uL Red Blood Count 3.80 L 4.0-5.20 10^6/uL Hemoglobin 11.2 L 12.2-16.2 g/dL Hematocrit 34.7 L 36.0-46.0 % Mean Corpuscular Volume 91.3 80.0-100.0 fL Mean Corpuscular Hemoglobin 29.3 28.0-32.0 pg Mean Corpuscular Hemoglobin Concent 32.2 32.0-36.0 g/dL Red Cell Distribution Width 17.2 H 11.8-14.3 % Platelet Count 197 140-450 10^3/uL Mean Platelet Volume 10.1 6.9-10.8 fL Neutrophils (%) (Auto) 85.7 H 37.0-80.0 % Lymphocytes (%) (Auto) 4.5 L 10.0-50.0 % Monocytes (%) (Auto) 5.6 0.0-12.0 % Eosinophils (%) (Auto) 3.5 0.0-7.0 % Basophils (%) (Auto) 0.7 0.0-2.0 % Neutrophils # (Auto) 8.1 1.6-8.6 10 ^3/uL Lymphocytes # (Auto) 0.4 0.4-5.4 10 ^3/uL Monocytes # (Auto) 0.5 0-1.3 10 ^3/uL Eosinophils # (Auto) 0.3 0-0.8 10 ^3/uL Basophils # (Auto) 0.1 0-0.2 10 ^3/uL Nucleated Red Blood Cells 0.0 % D-Dimer, Quantitative 0.31 0.0-0.49 mg/L FEU Sodium Level 144 136-145 mmol/L Potassium Level 3.8 3.5-5.1 mmol/L Chloride Level 107 98-107 mmol/L Carbon Dioxide Level 32 H 20-31 mmol/L Anion Gap 5 5-15 Blood Urea Nitrogen 11 9-23 mg/dL Creatinine 0.63 0.550-1.02 mg/dL Glomerular Filtration Rate Calc 98 >90 mL/min BUN/Creatinine Ratio 17.5 10.0-20.0 Serum Glucose 143 H 74-106 mg/dL Lactic Acid Level 1.4 0.4-2.0 mmol/L Calcium Level 9.3 8.7-10.4 mg/dL B-Type Natriuretic Peptide 49.78 0-100 pg/mL Thyroid Stimulating Hormone (TSH) 1.74 0.55-4.78 uIU/mL Urine Color Yellow Yellow Urine Clarity Clear Clear Urine pH 6.0 5.0-9.0 Urine Specific [place] 1.022 1.001-1.035 Urine Protein 1+ H Negative Urine Ketones 2+ H Negative Urine Blood Negative Negative /uL Urine Nitrite Negative Negative Urine Bilirubin Negative Negative Urine Urobilinogen 4 H Negative mg/dL Urine Leukocyte Esterase Negative Negative /uL Urine RBC 1 0 - 4 /hpf Urine WBC 2 0 - 5 /hpf Urine Squamous Epithelial Cells Few <5 /hpf Urine Bacteria None seen None Seen /hpf Urine Hyaline Casts Few 0 - 2 /lpf Urine Mucus Few None Seen Urine Glucose Normal Normal mg/dL Assessment Impression: Acute hypoxic respiratory failure secondary to influenza infection Acute hypercarbic respiratory failure, PaCO2 65.3 mmHg Influenza type B infection On mechanical ventilator Elevated troponin Anemia Hyperglycemia Hypertensive urgency Plan: s/p intubation on mechanical ventilator CXR image and report reviewed. Endotracheal tube in place. Enteric tube in place. Left IJ central line in place. No pleural effusion or pneumothorax. ABG reviewed. Initial demonstrated acidemia due to CO2 retention. Repeat ABG after ventilator changes demonstrates compensation. On assist control with a respiratory rate of 24, tidal volume 400, peep of five, FiO2 at 60%. Titrate FIO2 to keep O2 saturation above 92%. VAP bundle Daily ABG and CXR while intubated. Sedate for ventilatory synchrony Bronchodilators prn On pressors for hemodynamic support. On Levophed at 10 mcg/min Titrate to keep MAP above 65 mmHg/SBP above 90 mmHg. IV steroids Tamiflu course for influenza B Continue antibiotics. F/u cultures. Urinalysis: Leuk Esterase, nitrites negative F/u Urine tox Monitor renal function due to Acute kidney injury. Monitor electrolytes. Supplement as necessary. Nutritional support. Accucheks, ISS. GI proph: Pepcid BID DVT prophylaxis. Condition: Critical Prognosis: Poor given multiple comorbidities. Rest of plan per hospitalist and other consultants. A total of 36 minutes of critical care time was spent reviewing the patient record, examining the patient, making a diagnostic and therapeutic plan, discussing this plan with the medical personnel, following up on diagnostic studies and following the patient for clinical stability excluding any and all procedures. At least 50% of this time was spent in direct, [id number] contact. Thank you ASHLEE Vela for allowing me to participate in this patient's care. Further recommendations will depend on patient's clinical course. Please do not hesitate to contact me if you have any questions or concerns. This medical document was created using an electronic medical record system with [id number] dictation system. Although this document has been carefully reviewed, there may still be some phonetic and typographical errors. These areas are purely typographical due to imperfections of the software programs, and do not reflect any compromise in the patient's medical care. Plan discussed with: Other (EXTRUDER OPERATOR HELPER, RN, RT) SYLVIE RAMIREZ MD Mar 03, 2024 18:38
[2024-03-03 20:30] VITALS: BP 148/81; PULSE 80; RESP 24; O2SAT 99
[2024-03-03 21:15] VITALS: PULSE 82; RESP 24; O2SAT 96
[2024-03-03 22:00] VITALS: BP 135/75; PULSE 78; RESP 24; O2SAT 99
--- NOTE | 2024-03-03 22:38 | DVH ---
EXAM: CT HEAD WITHOUT CONTRAST INDICATION: Hypertensive urgency r/o stroke, hemorrhage, init anticoagul TECHNIQUE: CT of the head without intravenous contrast. Radiation Dose Information: CT Dose: CTDI volume is 51.01 mGy. Dose-length product is 817.88 mGy*cm The dose indicators for CT are the volume Computed Tomography (CT) Dose Index (CTDIvol) and the Dose Length Product (DLP), and are measured in units of mGy and mGy-cm, respectively. These indicators are not patient dose, but values generated from the CT scanner acquisition factors. The report includes radiation exposure data for exposures received during this examination. COMPARISON: CT ABDOMEN WITHOUT CONTRAST on DOS: 08/24/22 FINDINGS: There is no evidence of acute intracranial hemorrhage, extra-axial collection, mass effect, midline s hift, herniation or hydrocephalus. The ventricles, sulci and cisterns are age appropriate. The smith-white differentiation is intact. Patchy periventricular and subcortical white matter hypoattenuation is nonspecific but may be related to small vessel ischemic disease. The visualized paranasal sinuses and mastoid air cells are clear. The surrounding soft tissues and osseous structures are unremarkable. IMPRESSION: 1. No intracranial hemorrhage. 2. No territorial ischemia.
[2024-03-03] MEDS: methylPREDNISolone SOD SUCC 40 MG/ML VL IV SCH (22:53)
[2024-03-03] MEDS: FAMOTIDINE (10MG/ML) 2ML VL IV SCH (22:54)
[2024-03-03] MEDS: ENOXAPARIN SOD 100 MG/1 ML SYRINGE SC SCH (22:54)
[2024-03-03] MEDS: OSELTAMIVIR 75MG/5ML ORAL SUSP GT SCH (22:56)
[2024-03-03] MEDS: SODIUM CHLOR 0.9% PF (SALINE LOCK) 10ML VIAL/SYR IV SCH (22:56)
[2024-03-04] VITALS (105 sets, daily range): BP systolic 80–165; BP diastolic 50–86; PULSE 49–89; RESP 20–26; TEMP 97–99.1; O2SAT 95–100
--- NOTE | 2024-03-04 03:55 | DVH ---
CHEST RADIOGRAPH Indication:RESPIRATORY FAILURE Technique: Single frontal view of the chest was obtained Comparison: XY CHEST PORTABLE on DOS: 03/03/24, XY CHEST PORTABLE on DOS: 04/15/23, XY CHEST PORTABLE on DOS: 04/12/23, XY CHEST XRAY 1 VIEW on DOS: 04/09/23, XY CHEST PORTABLE on DOS: 08/23/22, XY CHEST PORTABLE on DOS: 03/03/24 FINDINGS: Lines and Tubes: Endotracheal tube in place 3 cm above the pedro. Enteric tube below the left diaphr agm in the stomach. Lungs: No focal consolidation. Pleura: No effusion. No pneumothorax. Cardiomediastinal contours: Unremarkable Bones: No acute osseous abnormality. IMPRESSION: 1. Endotracheal tube 3 cm above the pedro. 2. Enteric tube in the stomach 3. Internal jugular catheter from the left in the superior vena cava above the right atrium.
[2024-03-04 04:05] LABS: Basophils # (auto) 0 10 ^3/uL (0-0.2); Basophils % (auto) 0.5 % (0.0-2.0); Eosinophils # (auto) 0 10 ^3/uL (0-0.8); Eosinophils % (auto) 0.2 % (0.0-7.0); Hematocrit 34.5 % (36.0-46.0); Hemoglobin 11.5 g/dL (12.2-16.2); Lymphocytes # (auto) 0.4 10 ^3/uL (0.4-5.4); Lymphocytes % (auto) 5.1 % (10.0-50.0); Mean Corpuscular Hemoglobin 29.7 pg (28.0-32.0); Mean Corpuscular Hgb Conc. 33.2 g/dL (32.0-36.0); Mean Corpuscular Volume 89.7 fL (80.0-100.0); Monocytes # (auto) 0.2 10 ^3/uL (0-1.3); Neutrophils # (auto) 7.7 10 ^3/uL (1.6-8.6); Neutrophils % (auto) 92.2 % (37.0-80.0); Nucleated Red Blood Cells % 0.1 %; Platelet Count (auto) 203 10^3/uL (140-450); Red Blood Cells 3.85 10^6/uL (4.0-5.20); Red Cell Distribution Width 16.4 % (11.8-14.3); White Blood Cell 8.4 10^3/uL (4.4-10.8)
[2024-03-04 04:16] LABS: Alanine Aminotransferase 10 U/L (7-40); Albumin 4.1 g/dL (3.2-4.8); Alkaline Phosphatase 86 U/L (46-116); Anion Gap 7 (5-15); Aspartate Aminotransferase 18 U/L (13-40); BUN/Creatinine Ratio 15.6 (10.0-20.0); Blood Urea Nitrogen 12 mg/dL (9-23); Calcium 9.8 mg/dL (8.7-10.4); Carbon Dioxide 29 mmol/L (20-31); Chloride 108 mmol/L (98-107); Glucose 146 mg/dL (74-106); Potassium 3.4 mmol/L (3.5-5.1); Sodium 144 mmol/L (136-145)
[2024-03-04 04:17] LABS: Bilirubin, Total 0.5 mg/dL (0.2-1.0); Total Protein 6.8 g/dL (5.7-8.2)
[2024-03-04] MEDS: POTASSIUM CHL 20MEQ/100ML 100 ML IV ONE (06:29)
[2024-03-04 07:51] LABS: Base Excess 0.4 mmol/L (-2.0-3.0)
--- NOTE | 2024-03-04 09:18 | DVHSR ---
APPROVED REPORT EXAM: Two-dimensional and M-mode echocardiogram with Doppler and color Doppler. Blood Pressure: 115/68 mmHg INDICATION Hypertensive urgency RISK FACTORS Height: 5'1", Weight: 103 DIMENSIONS LVDd2.4 (3.8-5.7cm)LA (2D)2.6 (1.9-4.0cm)Aortic Root2.8 (2.0-3.7cm) LVDs1.8 (2.5-4.0cm)LA (MM) (1.9-4.0cm)Aortic Cusp Exc1.5 (1.5-2.0cm) EF (%) 55.0 (55-70%)Rt. Atrium3.2 (1.9-4.0cm)Asc. Aorta cm IVSd0.9 (0.7-1.1cm)RV (D) (1.8-2.4cm) PWd1.2 (0.7-1.1cm) Mitral Valve MitralMitral Stenosis E wave0.66m/sMV Mean GR.mmHg A wave1.34m/sMV Peak GR.mmHg E/A ratio0.52D MVAcm2 DECEL [id number] 1/2 Timems Aortic Valve Aortic ValveAortic Stenosis V12.02m/Sandra Mean GR.9mmHg V22.29m/Sandra Peak GR.21mmHg LVOT Diameter1.8 (1.8-2.4cm)Doppler AVA2.24cm2 Pulmonic Valve V21.44m/s Tricuspid Valve TR Velocity3.55m/s [id number] Other Information Quality : LimitedRhythm : Technically limited study due to body habitus, patient position and on vent. Conclusion Normal left ventricular size and dimension. Normal left ventricular systolic function estimated ejec tion fraction of 55%. There is a grade 1 diastolic dysfunction. Normal right ventricular size and dimension. Normal right ventricular systolic function. Moderate t o severely elevated right ventricular systolic pressure at 58 mm of mercury. Normal biatrial size and dimension. Normal aortic valve structure and function. Normal mitral valve structure and function. Normal tricuspid valve structure and function. There is mild tricuspid valve regurgitation. The pulmonary valve is grossly normal. No pericardial effusion.
--- NOTE | 2024-03-04 09:58 | ECG ---
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
[2024-03-04] MEDS: ENOXAPARIN SOD 100 MG/1 ML SYRINGE SC ONE (10:00)
[2024-03-04] MEDS: AZITHROMYCIN 500MG/ 250ML 250 ML IV SCH (10:03)
[2024-03-04] MEDS: NOREPINEPHRINE 8 MG/250ML KIT 250 ML IV SCH ×2 (12:45→16:15)
--- NOTE | 2024-03-04 13:14 | DVHPNRES ---
Progress Note Date Seen: Mar 04, 2024 Resident Creating Document: WALI YOUNGBLOOD RESIDENT Medical Necessity Reason Pt with a Central, PICC or Fol: Yes The following are medically ne: Central Line, Evans Catheter Subjective Review of Systems Patient is 64-year-old female with past medical history of hypertension, diabetes mellitus type 2, hyperlipidemia, Chronic obstructive pulmonary disease/emphysema, questionable asthma, NSTEMI type 2, anxiety, arthritis who presented to emergency department with chief complaint of shortness of breath for approximately 4-5 days. At the arrival emergency department, patient found to be in respiratory distress with hypoxia, tachycardia and patient was on BiPAP, at the time of initial evaluation patient right away got intubated for respiratory distress and failure. Patient seen and examined in ICU department. Patient is intubated and sedated. No other complaints from shift commander. Review of systems can not obtain as patient is intubated. Objective vital signs Vital Sign Date Time Temp Pulse Resp B/P (MAP) Pulse Ox O2 Delivery O2 Flow Rate FiO2 03/04/24 12:45 97.0 67 24 117/66 (83) 206.6 03/04/24 12:00 30 03/04/24 12:00 98 Mechanical Ventilator+ 03/03/24 13:34 10 Total Intake and Output 03/03/24 03/03/24 03/04/24 15:00 23:00 07:00 Intake Total 143.75 ml 237.50 ml Output Total 400 ml Balance 143.75 ml -162.50 ml medications Current Medications Medications Dose Ordered Sig/Aida Route Start Time Stop Time Status Last Admin Dose Admin Fentanyl Citrate 250 ml @ 2.5 mls/hr Q24H IV 03/03/24 14:15 03/04/24 06:28 12.5 MLS/HR Midazolam HCl 50 ml @ 1 mls/hr Q24H IV 03/03/24 14:15 03/04/24 10:08 15 MLS/HR Famotidine 20 mg Q12HR IV 03/03/24 22:00 03/04/24 10:02 20 MG Albuterol 2.5 mg Q4HPRN PRN NEB 03/03/24 17:00 03/04/24 02:14 2.5 MG Ipratropium [place] 0.5 mg Q4HPRN PRN NEB 03/03/24 17:00 03/04/24 02:14 0.5 MG Hydralazine HCl 10 mg Q6HP PRN IV 03/03/24 17:00 Diagnostic Test (Pha) 1 strip Q6HR 03/03/24 18:00 03/04/24 11:54 1 STRIP Insulin Human Regular Q6HR SC 03/03/24 18:00 03/04/24 11:55 4 UNITS Dextrose 50 ml UD PRN IV 03/03/24 17:00 Sodium Chloride 10 ml Q8HR IV 03/03/24 22:00 03/04/24 05:47 10 ML Ondansetron HCl 4 mg Q4HP PRN IV 03/03/24 17:00 Azithromycin 250 ml @ 125 mls/hr DAILY IV 03/04/24 10:00 03/04/24 10:03 125 MLS/HR Nitroglycerin 0.4 mg Q5MINP PRN SL 03/03/24 17:15 Morphine Sulfate 2 mg Q30M PRN IV 03/03/24 17:15 Oseltamivir Phosphate 75 mg BID GT 03/03/24 22:00 03/08/24 21:59 03/04/24 10:05 75 MG Enoxaparin Sodium 50 mg Q12HR SC 03/03/24 22:00 03/04/24 10:02 50 MG Norepinephrine Bitartrate 250 ml @ 3.75 mls/hr Q24H IV 03/04/24 12:45 UNV Examination General Appearance: Sedated and on ventilator. Head Exam: Normal inspection Neck Exam: Normal inspection. Non-tender. Normal alignment Pulmonary/Respiratory: Chest non-tender. Bilateral lung crackles. Cardiovascular/Chest: Regular rate and rhythm. No murmurs. No JVD. Peripheral Pulses: 2+ Radial (R). 2+ Radial (L). 2+ Pedal (R). 2+ Pedal (L) Abdominal Exam: Normal bowel sounds. Soft. Nontender. No hepatospenomegaly. No masses Ankle Exam: Negative ankle edema Lower extremities: Negative lower extremity edema Neuro/Mental Status: Sedated. laboratory and microbiology Laboratory Tests 03/04/24 03:31 Test 03/04/24 03:31 Range/Units Serum Glucose 146 H 74-106 mg/dL Microbiology Date/Time Source Procedure Growth Status 03/03/24 14:29 Sputum Gram Stain - Final Resulted 03/03/24 14:29 Sputum Respiratory Culture - Preliminary Resulted Problem List/Assessment/Plan Problem List/Assessment/Plan Acute hypoxic/hypercapnia respiratory failure Acute Chronic obstructive pulmonary disease exacerbation Septic shock due to Influenza infection NSTEMI type 2 due to above Hypertensive urgency Emphysema Diabetes mellitus type 2 History of hypertension Hypokalemia Plan -CT chest without contrast has been ordered. -continue with antibiotic doxycycline to cover MRSA. Ordered MRSA nurse. -on ventilator: Respiratory rate 24, tidal volume 400, FiO2 50%, peep 5. -ABG: PH 7.417, CO2 39.4, HC03 24.8. No need for ventilation changes. -breathing treatment with albuterol 2.5 mg nebs q.4 and ipratropium bromide 0.5 mg tab q.4. -received Solu-Medrol 125 mg IV on admission. Discontinued methylprednisolone given influenza infection. Continuous all tomorrow 75 mg b.i.d. via G-tube. -insulin sliding scale for hyperglycemia. -DVT prophylaxis with Lovenox 30 mg subQ. -PUD prophylaxis with famotidine 20 mg IV b.i.d.. -feeding via G-tube. -Plan for CPAP trial tomorrow a.m.. Intubated on 03/03/2024 Line: Left IJ inserted on 03/03/2024. Goals of care: Full code discussed greater than 22 minutes. Critical care time spent greater than 79 minutes. Plan discussed with Dr Bonilla. Plan discussed with: Other (RN) My Orders My Orders Orders - WALI YOUNGBLOOD Procedure Category Date Status Time Enoxaparin Sodium PHA 03/05/24 Transmitted (Lovenox) 10:00 Mrsa Screen WINSOME 03/04/24 Transmitted 13:[address] 03/04/24 Transmitted 13:01 Magnesium LAB 03/04/24 Transmitted 13:01 Date of Service: Mar 04, 2024 Billing Provider: ANA BONILLA MD Common Visit Codes: [id number] CARE 30-74 MIN WALI YOUNGBLOOD Mar 04, 2024 13:14 ANA BONILLA MD Mar 04, 2024 13:41
--- NOTE | 2024-03-04 14:35 | DVH ---
Procedure: CT CHEST WITHOUT CONTRAST Reason for study/Clinical History: emphysema Comparison Study: None available at time of dictation. Exam Date: 03/04/2024 02:04 PM TECHNIQUE: Multidetector CT of the chest was performed from the lung apices to the upper abdomen with out the use of intravenous contract. Axial, coronal and sagittal multiplanar reformats were performed . Radiation Dose Information: CT Dose: CTDI volume is 6.12 mGy. Dose-length product is 235.67 mGy*cm The dose indicators for CT are the volume Computed Tomography (CT) Dose Index (CTDIvol) and the Dose Length Product (DLP), and are measured in units of mGy and mGy-cm, respectively. These indicators are not patient dose, but values generated from the CT scanner acquisition factors. The report includes radiation exposure data for exposures received during this examination. FINDINGS: Lower neck: Normal thyroid. ENDOTRACHEAL TUBE IN PLACE. Enteric tube below the left diaphragm in the stomach. Proximal side port above the gastroesophageal junction recommend advancement 5-6 cm. Central line in place from the left internal jugular vein with the tip in the superior vena cava. Lungs: Hyperinflation with increased retrosternal clear space. Heart/Vascular Structures: Normal heart size. No pericardial effusion. Lymph Nodes: No adenopathy Pleura: No pleural effusion or significant pneumothorax. Musculoskeletal: No acute osseous abnormality. Soft tissues: Normal. Upper abdomen: Limited portions of the upper abdomen are unremarkable. IMPRESSION: 1. Hyperinflation with increased retrosternal clear space. 2. Endotracheal tube enteric tube and central lines in place. Radiation optimization: All CT scans at this facility use at least one of these dose optimization kobi hniques: automated exposure control mA and/or kV adjustment per patient size (includes targeted exam s where dose is matched to clinical indication) or iterative reconstruction.
[2024-03-04] MEDS ORDERED: IPRATROPIUM BROM 0.5 MG/2.5ML INH SOL NEB SCH (22:00)
[2024-03-05] VITALS (101 sets, daily range): BP systolic 71–164; BP diastolic 39–136; PULSE 47–107; RESP 16–29; TEMP 97.7–99.9; O2SAT 38–100
[2024-03-05] MEDS: IPRATROPIUM BROM 0.5 MG/2.5ML INH SOL NEB SCH (02:27)
[2024-03-05] MEDS: ALBUTEROL SULF 2.5 MG/0.5ML(0.5%) NEB SOLN NEB SCH (02:27)
[2024-03-05 03:51] LABS: Anion Gap 8 (5-15); Carbon Dioxide 24 mmol/L (20-31); Chloride 111 mmol/L (98-107); Potassium 4.2 mmol/L (3.5-5.1); Sodium 143 mmol/L (136-145)
[2024-03-05 03:53] LABS: Calcium 9.3 mg/dL (8.7-10.4)
[2024-03-05 03:58] LABS: BUN/Creatinine Ratio 22.9 (10.0-20.0); Blood Urea Nitrogen 16 mg/dL (9-23); Glucose 95 mg/dL (74-106)
[2024-03-05 04:13] LABS: Basophils # (auto) 0 10 ^3/uL (0-0.2); Basophils % (auto) 0.2 % (0.0-2.0); Eosinophils # (auto) 0 10 ^3/uL (0-0.8); Eosinophils % (auto) 0.1 % (0.0-7.0); Hematocrit 32.6 % (36.0-46.0); Hemoglobin 10.5 g/dL (12.2-16.2); Lymphocytes # (auto) 1.5 10 ^3/uL (0.4-5.4); Lymphocytes % (auto) 9.1 % (10.0-50.0); Mean Corpuscular Hemoglobin 29.1 pg (28.0-32.0); Mean Corpuscular Hgb Conc. 32.3 g/dL (32.0-36.0); Mean Corpuscular Volume 90.3 fL (80.0-100.0); Monocytes # (auto) 1.2 10 ^3/uL (0-1.3); Monocytes % (auto) 7.2 % (0.0-12.0); Neutrophils # (auto) 13.9 10 ^3/uL (1.6-8.6); Neutrophils % (auto) 83.4 % (37.0-80.0); Platelet Count (auto) 182 10^3/uL (140-450); Red Blood Cells 3.61 10^6/uL (4.0-5.20); White Blood Cell 16.7 10^3/uL (4.4-10.8)
--- NOTE | 2024-03-05 04:42 | DVH ---
EXAM: XY CHEST XRAY 1 VIEW Indication:on vent Technique: Single frontal view of the chest was obtained Comparison: XY CHEST PORTABLE on DOS: 03/04/24, XY CHEST PORTABLE on DOS: 03/03/24, XY CHEST PORTABLE on DOS: 04/15/23, XY CHEST PORTABLE on DOS: 04/12/23, XY CHEST XRAY 1 VIEW on DOS: 04/09/23, XY CHES T PORTABLE on DOS: 03/04/24 FINDINGS: Lines and Tubes: Endotracheal tube in place 3 cm above the pedro. Enteric tube below the left diaphr agm in the stomach. Left internal jugular central venous catheter tip projects over the superior vena cava. Lungs: Mild right lung interstitial opacities.. Pleura: No effusion. No pneumothorax. Cardiomediastinal contours: Unremarkable Bones: No acute osseous abnormality. IMPRESSION: No significant change compared to prior exam.
[2024-03-05 06:29] LABS: Base Excess 2.7 mmol/L (-2.0-3.0)
--- NOTE | 2024-03-05 10:47 | DVHPNRES ---
Progress Note Date Seen: Mar 05, 2024 Resident Creating Document: WALI YOUNGBLOOD RESIDENT Medical Necessity Reason Pt with a Central, PICC or Fol: Yes The following are medically ne: Central Line, Evans Catheter Subjective Review of Systems Patient is 64-year-old female with past medical history of hypertension, diabetes mellitus type 2, hyperlipidemia, Chronic obstructive pulmonary disease/emphysema, questionable asthma, NSTEMI type 2, anxiety, arthritis who presented to emergency department with chief complaint of shortness of breath for approximately 4-5 days. At the arrival emergency department, patient found to be in respiratory distress with hypoxia, tachycardia and patient was on BiPAP, at the time of initial evaluation patient right away got intubated for respiratory distress and failure. Patient seen and examined in ICU department. Patient is intubated and sedated. 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 Review of systems can not obtain as patient is intubated. Plan to do cpap trial today, off sedation. Objective vital signs Vital Sign Date Time Temp Pulse Resp B/P (MAP) Pulse Ox O2 Delivery O2 Flow Rate FiO2 03/05/24 08:51 88 24 115/76 (89) 99 40 03/05/24 06:00 Mechanical Ventilator+ 03/05/24 03:45 98.6 209.5 03/03/24 13:34 10 Total Intake and Output 03/04/24 03/04/24 03/05/24 15:00 23:00 07:00 Intake Total 520.00 ml 224.125 ml 109.875 ml Output Total 350 ml 325 ml Balance 520.00 ml -125.875 ml -215.125 ml medications Current Medications Medications Dose Ordered Sig/Aida Route Start Time Stop Time Status Last Admin Dose Admin Fentanyl Citrate 250 ml @ 2.5 mls/hr Q24H IV 03/03/24 14:15 03/05/24 01:12 10 MLS/HR Midazolam HCl 50 ml @ 1 mls/hr Q24H IV 03/03/24 14:15 03/05/24 01:04 11 MLS/HR Famotidine 20 mg Q12HR IV 03/03/24 22:00 03/05/24 09:51 20 MG Hydralazine HCl 10 mg Q6HP PRN IV 03/03/24 17:00 Diagnostic Test (Pha) 1 strip Q6HR 03/03/24 18:00 03/05/24 06:38 1 STRIP Insulin Human Regular Q6HR SC 03/03/24 18:00 03/04/24 11:55 4 UNITS Dextrose 50 ml UD PRN IV 03/03/24 17:00 Sodium Chloride 10 ml Q8HR IV 03/03/24 22:00 03/05/24 06:37 10 ML Oseltamivir Phosphate 75 mg BID GT 03/03/24 22:00 03/08/24 21:59 03/05/24 09:51 75 MG Norepinephrine Bitartrate 250 ml @ 1.875 mls/ hr Q24H IV 03/04/24 16:15 Dexmedetomidine HCl 400 mcg/ Dextrose 100 ml @ 2.325 mls/ hr Q24H IV 03/04/24 16:30 Albuterol 2.5 mg Q8H NEB 03/05/24 02:00 03/05/24 02:27 2.5 MG Ipratropium [place] 0.5 mg Q8HR NEB 03/05/24 02:00 03/05/24 07:15 0.5 MG Examination General Appearance: Sedated and on ventilator. Head Exam: Normal inspection Neck Exam: Normal inspection. Non-tender. Normal alignment Pulmonary/Respiratory: Chest non-tender. Bilateral lung crackles. Cardiovascular/Chest: Regular rate and rhythm. No murmurs. No JVD. Peripheral Pulses: 2+ Radial (R). 2+ Radial (L). 2+ Pedal (R). 2+ Pedal (L) Abdominal Exam: Normal bowel sounds. Soft. Nontender. No hepatospenomegaly. No masses Ankle Exam: Negative ankle edema Lower extremities: Negative lower extremity edema Neuro/Mental Status: Sedated. laboratory and microbiology Laboratory Tests 03/05/24 03:05 Test 03/05/24 03:05 Range/Units Serum Glucose 95 74-106 mg/dL Microbiology Date/Time Source Procedure Growth Status 03/04/24 00:25 Nose MRSA Screen - Final Complete 03/03/24 14:36 Blood Blood Culture - Preliminary NO GROWTH AFTER 24 HOURS OF INCUBATION. Resulted 03/03/24 14:29 Sputum Gram Stain - Final Resulted 03/03/24 14:29 Sputum Respiratory Culture - Preliminary Resulted Problem List/Assessment/Plan Problem List/Assessment/Plan Acute hypoxic/hypercapnia respiratory failure Acute Chronic obstructive pulmonary disease exacerbation Septic shock due to Influenza infection NSTEMI type 2 due to above Hypertensive urgency Emphysema Diabetes mellitus type 2 History of hypertension Hypokalemia Plan -CT chest without contrast has been ordered. -continue with antibiotic doxycycline to cover MRSA. Ordered MRSA nurse. -on ventilator: Respiratory rate 24, tidal volume 400, FiO2 50%, peep 5. -ABG: PH 7.417, CO2 39.4, HC03 24.8. No need for ventilation changes. -breathing treatment with albuterol 2.5 mg nebs q.4 and ipratropium bromide 0.5 mg tab q.4. -received Solu-Medrol 125 mg IV on admission. Discontinued methylprednisolone given influenza infection. Continuous all tomorrow 75 mg b.i.d. via G-tube. -insulin sliding scale for hyperglycemia. -DVT prophylaxis with Lovenox 30 mg subQ. -PUD prophylaxis with famotidine 20 mg IV b.i.d.. -feeding via G-tube. -underwent cpap trial. Not following commad, Plan to do cpap trial tomorrow agian. only use fent and prop for sedation, no versad. Intubated on 03/03/2024 Line: Left IJ inserted on 03/03/2024. Goals of care: Full code discussed greater than 22 minutes. Critical care time spent greater than 79 minutes. Plan discussed with Dr Bonilla. Plan discussed with: Other (RN) My Orders My Orders Orders - WALI YOUNGBLOOD Procedure Category Date Status Time Mrsa Screen WINSOME 03/04/24 Logged 13:[address] 03/04/24 Resulted 13:01 Cpap Trial For Am ORDERS 03/04/24 Transmitted 13:02 Chest Xray 1 View XY 03/05/24 Resulted 04:00 Abg W/ Co-Ox RT 03/05/24 Logged 04:00 D5w 5% (Dextrose 5%) PHA 03/04/24 In Process W/Dexmedetomidine 16:30 Albuterol Medneb PHA 03/05/24 In Process (Ventolin Medneb) 02:00 Ipratropium Medneb PHA 03/05/24 In Process (Atrovent Medneb) 02:00 Date of Service: Mar 05, 2024 Billing Provider: ANA BONILLA MD Common Visit Codes: [id number] CARE 30-74 MIN WALI YOUNGBLOOD Mar 05, 2024 10:47 ANA BONILLA MD Mar 05, 2024 13:28
[2024-03-05] MEDS: PROPOFOL 100 ML IV SCH (16:16)
[2024-03-05] MEDS: OSELTAMIVIR 30MG/5ML ORAL SUSP GT SCH (22:46)
[2024-03-06] VITALS (115 sets, daily range): BP systolic 77–201; BP diastolic 45–108; PULSE 49–105; RESP 13–27; TEMP 97–99.3; O2SAT 89–100
[2024-03-06 03:42] LABS: Basophils # (auto) 0.1 10 ^3/uL (0-0.2); Basophils % (auto) 0.4 % (0.0-2.0); Eosinophils # (auto) 0.1 10 ^3/uL (0-0.8); Eosinophils % (auto) 0.8 % (0.0-7.0); Hematocrit 31.9 % (36.0-46.0); Lymphocytes # (auto) 1.6 10 ^3/uL (0.4-5.4); Lymphocytes % (auto) 12.4 % (10.0-50.0); Mean Corpuscular Hemoglobin 28.7 pg (28.0-32.0); Mean Corpuscular Hgb Conc. 31.5 g/dL (32.0-36.0); Mean Corpuscular Volume 90.9 fL (80.0-100.0); Monocytes # (auto) 1.3 10 ^3/uL (0-1.3); Monocytes % (auto) 9.7 % (0.0-12.0); Neutrophils # (auto) 10.1 10 ^3/uL (1.6-8.6); Neutrophils % (auto) 76.7 % (37.0-80.0); Platelet Count (auto) 169 10^3/uL (140-450); Red Blood Cells 3.51 10^6/uL (4.0-5.20); Red Cell Distribution Width 17.2 % (11.8-14.3); White Blood Cell 13.1 10^3/uL (4.4-10.8)
[2024-03-06 03:53] LABS: Chloride 111 mmol/L (98-107); Potassium 3.7 mmol/L (3.5-5.1); Sodium 146 mmol/L (136-145)
[2024-03-06 03:54] LABS: Anion Gap 9 (5-15); Carbon Dioxide 26 mmol/L (20-31)
[2024-03-06 03:55] LABS: Calcium 9.2 mg/dL (8.7-10.4)
[2024-03-06 03:59] LABS: BUN/Creatinine Ratio 27.8 (10.0-20.0); Blood Urea Nitrogen 15 mg/dL (9-23); Glucose 75 mg/dL (74-106)
--- NOTE | 2024-03-06 05:41 | DVH ---
CHEST RADIOGRAPH Indication:on vent Technique: Single frontal view of the chest was obtained COMPARISON: XY CHEST XRAY 1 VIEW on DOS: 03/05/24, XY CHEST PORTABLE on DOS: 03/04/24, XY CHEST SURENDRA BLE on DOS: 03/03/24, XY CHEST XRAY 1 VIEW on DOS: 03/05/24 FINDINGS: Lines and Tubes: Endotracheal tube in place 5 cm above the pedro. Enteric tube below the left diaphr agm in the stomach. Left internal jugular central venous catheter tip projects over the superior vena cava. Lungs: Mild right lung interstitial opacities.. Pleura: No effusion. No pneumothorax. Cardiomediastinal contours: Unremarkable Bones: No acute osseous abnormality. IMPRESSION: No significant change compared to prior exam.
[2024-03-06 07:19] LABS: Base Excess 1.5 mmol/L (-2.0-3.0)
--- NOTE | 2024-03-06 08:34 | DVHPNRES ---
Progress Note Date Seen: Mar 06, 2024 Resident Creating Document: WALI YOUNGBLOOD RESIDENT Medical Necessity Reason Pt with a Central, PICC or Fol: Yes The following are medically ne: Central Line, Evans Catheter Subjective Review of Systems Patient is 64-year-old female with past medical history of hypertension, diabetes mellitus type 2, hyperlipidemia, Chronic obstructive pulmonary disease/emphysema, questionable asthma, NSTEMI type 2, anxiety, arthritis who presented to emergency department with chief complaint of shortness of breath for approximately 4-5 days. At the arrival emergency department, patient found to be in respiratory distress with hypoxia, tachycardia and patient was on BiPAP, at the time of initial evaluation patient right away got intubated for respiratory distress and failure. Patient seen and examined in ICU department. Patient is intubated and sedated. 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 Review of systems can not obtain as patient is intubated. Plan to do cpap trial today. Objective vital signs Vital Sign Date Time Temp Pulse Resp B/P (MAP) Pulse Ox O2 Delivery O2 Flow Rate FiO2 03/06/24 07:53 51 24 111/66 100 40 03/06/24 06:45 98.2 208.8 03/06/24 06:00 Mechanical Ventilator+ Total Intake and Output 03/05/24 03/05/24 03/06/24 15:00 23:00 07:00 Intake Total 25.988 ml 131.878 ml 161.236 ml Output Total 300 ml 245 ml Balance 25.988 ml -168.122 ml -83.764 ml medications Current Medications Medications Dose Ordered Sig/Aida Route Start Time Stop Time Status Last Admin Dose Admin Fentanyl Citrate 250 ml @ 2.5 mls/hr Q24H IV 03/03/24 14:15 03/06/24 01:40 10 MLS/HR Midazolam HCl 50 ml @ 1 mls/hr Q24H IV 03/03/24 14:15 03/05/24 01:04 11 MLS/HR Famotidine 20 mg Q12HR IV 03/03/24 22:00 03/05/24 09:51 20 MG Hydralazine HCl 10 mg Q6HP PRN IV 03/03/24 17:00 Diagnostic Test (Pha) 1 strip Q6HR 03/03/24 18:00 03/06/24 06:04 1 STRIP Insulin Human Regular Q6HR SC 03/03/24 18:00 03/04/24 11:55 4 UNITS Dextrose 50 ml UD PRN IV 03/03/24 17:00 Sodium Chloride 10 ml Q8HR IV 03/03/24 22:00 03/06/24 06:04 10 ML Norepinephrine Bitartrate 250 ml @ 1.875 mls/ hr Q24H IV 03/04/24 16:15 Dexmedetomidine HCl 400 mcg/ Dextrose 100 ml @ 2.325 mls/ hr Q24H IV 03/04/24 16:30 03/05/24 11:29 2.325 MLS/HR Albuterol 2.5 mg Q8H NEB 03/05/24 02:00 03/06/24 05:35 2.5 MG Ipratropium [place] 0.5 mg Q8HR NEB 03/05/24 02:00 03/06/24 05:36 0.5 MG Oseltamivir Phosphate 30 mg BID GT 03/05/24 22:00 03/10/24 21:59 03/05/24 22:46 30 MG Acetaminophen 650 mg Q6HP PRN PO 03/05/24 13:15 Propofol 100 ml @ 1.518 mls/ hr Q24H IV 03/05/24 15:45 03/06/24 03:32 7.59 MLS/HR Examination General Appearance: Sedated and on ventilator. Head Exam: Normal inspection Neck Exam: Normal inspection. Non-tender. Normal alignment Pulmonary/Respiratory: Chest non-tender. Bilateral lung crackles. Cardiovascular/Chest: Regular rate and rhythm. No murmurs. No JVD. Peripheral Pulses: 2+ Radial (R). 2+ Radial (L). 2+ Pedal (R). 2+ Pedal (L) Abdominal Exam: Normal bowel sounds. Soft. Nontender. No hepatospenomegaly. No masses Ankle Exam: Negative ankle edema Lower extremities: Negative lower extremity edema Neuro/Mental Status: Sedated. laboratory and microbiology Laboratory Tests 03/06/24 03:20 Test 03/06/24 03:20 Range/Units Serum Glucose 75 74-106 mg/dL Microbiology Date/Time Source Procedure Growth Status 03/04/24 00:25 Nose MRSA Screen - Final Complete 03/03/24 14:36 Blood Blood Culture - Preliminary NO GROWTH AFTER 48 HOURS OF INCUBATION. Resulted 03/03/24 14:29 Sputum Gram Stain - Final Resulted 03/03/24 14:29 Sputum Respiratory Culture - Preliminary Resulted Problem List/Assessment/Plan Problem List/Assessment/Plan Acute hypoxic/hypercapnia respiratory failure Acute Chronic obstructive pulmonary disease exacerbation Septic shock due to Influenza infection NSTEMI type 2 due to above Hypertensive urgency Emphysema Diabetes mellitus type 2 History of hypertension Hypokalemia Plan -CT chest without contrast :Hyperinflation with increased retrosternal clear space. -on ventilator: Respiratory rate 24, tidal volume 400, FiO2 40%, peep 5. -ABG: PH 7.433, CO2 39.5, HC03 25.8. -breathing treatment with albuterol 2.5 mg nebs q.4 and ipratropium bromide 0.5 mg tab q.4. -received Solu-Medrol 125 mg IV on admission. Discontinued methylprednisolone given influenza infection. -insulin sliding scale for hyperglycemia. -DVT prophylaxis with Lovenox 30 mg subQ. -PUD prophylaxis with famotidine 20 mg IV b.i.d.. -feeding via G-tube. -Plan to do cpap trial today again. titrate to stop sedation. Intubated on 03/03/2024 Line: Left IJ inserted on 03/03/2024. Goals of care: Full code discussed greater than 22 minutes. Critical care time spent greater than 76 minutes. EXcluding cpap trial Plan discussed with Dr Bonilla. Plan discussed with: Other (RN) My Orders My Orders Orders - WALI YOUNGBLOOD Procedure Category Date Status Time Cpap Trial For Am ORDERS 03/05/24 Transmitted 10:44 Abg W/ Co-Ox RT 03/06/24 Logged 04:00 Acetaminophen Tablet PHA 03/05/24 In Process (Tylenol Tablet) 13:15 Chest Xray 1 View XY 03/06/24 Resulted 04:00 Abg W/ Co-Ox RT 03/06/24 Logged 04:00 Cpap Trial For Am ORDERS 03/06/24 Transmitted 07:17 Date of Service: Mar 06, 2024 Billing Provider: ANA BONILLA MD Common Visit Codes: [id number] CARE 30-74 MIN WALI YOUNGBLOOD RESIDENT Mar 06, 2024 08:34 ANA BONILLA MD Mar 06, 2024 22:58
[2024-03-06] MEDS: Jevity 1.2 Cal/Fiber 1 Liter GT SCH (13:44)
[2024-03-06] MEDS: methylPREDNISolone SOD SUCC 40 MG/ML VL IV SCH (14:36)
[2024-03-07] VITALS (108 sets, daily range): BP systolic 96–195; BP diastolic 55–85; PULSE 49–118; RESP 15–34; TEMP 96.8–99.5; O2SAT 91–100
[2024-03-07 03:41] LABS: Basophils # (auto) 0.1 10 ^3/uL (0-0.2); Basophils % (auto) 0.5 % (0.0-2.0); Eosinophils # (auto) 0 10 ^3/uL (0-0.8); Eosinophils % (auto) 0.2 % (0.0-7.0); Hematocrit 32.5 % (36.0-46.0); Hemoglobin 10.6 g/dL (12.2-16.2); Lymphocytes # (auto) 0.7 10 ^3/uL (0.4-5.4); Lymphocytes % (auto) 5.5 % (10.0-50.0); Mean Corpuscular Hemoglobin 29.2 pg (28.0-32.0); Mean Corpuscular Hgb Conc. 32.6 g/dL (32.0-36.0); Mean Corpuscular Volume 89.6 fL (80.0-100.0); Monocytes # (auto) 0.1 10 ^3/uL (0-1.3); Monocytes % (auto) 1.2 % (0.0-12.0); Neutrophils # (auto) 11.4 10 ^3/uL (1.6-8.6); Neutrophils % (auto) 92.6 % (37.0-80.0); Nucleated Red Blood Cells % 0.1 %; Platelet Count (auto) 163 10^3/uL (140-450); Red Blood Cells 3.63 10^6/uL (4.0-5.20); Red Cell Distribution Width 17.1 % (11.8-14.3); White Blood Cell 12.3 10^3/uL (4.4-10.8)
[2024-03-07 03:46] LABS: Anion Gap 7 (5-15); Carbon Dioxide 25 mmol/L (20-31); Chloride 110 mmol/L (98-107); Potassium 4.2 mmol/L (3.5-5.1); Sodium 142 mmol/L (136-145)
[2024-03-07 03:47] LABS: Calcium 9.4 mg/dL (8.7-10.4)
[2024-03-07 03:52] LABS: BUN/Creatinine Ratio 26.5 (10.0-20.0); Blood Urea Nitrogen 13 mg/dL (9-23); Glucose 136 mg/dL (74-106)
--- NOTE | 2024-03-07 05:36 | DVH ---
EXAM: XY CHEST XRAY 1 VIEW Indication:ON VENT Technique: Single frontal view of the chest was obtained Comparison: XY CHEST XRAY 1 VIEW on DOS: 03/06/24, XY CHEST XRAY 1 VIEW on DOS: 03/05/24, XY CHEST PO RTABLE on DOS: 03/04/24, XY CHEST PORTABLE on DOS: 03/03/24, XY CHEST PORTABLE on DOS: 04/15/23, XY C HEST XRAY 1 VIEW on DOS: 03/06/24 FINDINGS: Lines and Tubes: Endotracheal tube in place 5 cm above the pedro. Enteric tube below the left diaphr agm in the stomach. Left internal jugular central venous catheter tip projects over the superior vena cava. Lungs: Mild right lung interstitial opacities.. Pleura: No effusion. No pneumothorax. Cardiomediastinal contours: Unremarkable Bones: No acute osseous abnormality. IMPRESSION: No significant change compared to prior exam.
[2024-03-07 06:36] LABS: Base Excess 0.5 mmol/L (-2.0-3.0)
[2024-03-07] MEDS: MIDAZOLAM HCL 2MG/2ML 2ml VIAL (1mg/ml) ONE (11:04)
--- NOTE | 2024-03-07 11:08 | DVHPNRES ---
Progress Note Date Seen: Mar 07, 2024 Resident Creating Document: WALI YOUNGBLOOD RESIDENT Medical Necessity Reason Pt with a Central, PICC or Fol: Yes The following are medically ne: Central Line, Evasn Catheter Subjective Review of Systems Patient is 64-year-old female with past medical history of hypertension, diabetes mellitus type 2, hyperlipidemia, Chronic obstructive pulmonary disease/emphysema, questionable asthma, NSTEMI type 2, anxiety, arthritis who presented to emergency department with chief complaint of shortness of breath for approximately 4-5 days. At the arrival emergency department, patient found to be in respiratory distress with hypoxia, tachycardia and patient was on BiPAP, at the time of initial evaluation patient right away got intubated for respiratory distress and failure. Patient seen and examined in ICU department. Patient is intubated and sedated. 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 Review of systems can not obtain as patient is intubated. Patient failed CPAP trial today, she became tachypnic , not following command and Not able to get NIF. Minimal air leak. No other night events. Objective vital signs Vital Sign Date Time Temp Pulse Resp B/P (MAP) Pulse Ox O2 Delivery O2 Flow Rate FiO2 03/07/24 10:33 53 24 128/72 (90) 96 35 03/07/24 09:30 99.5 211.1 03/07/24 08:00 Mechanical Ventilator+ Total Intake and Output 03/06/24 03/06/24 03/07/24 14:59 22:59 06:59 Intake Total 188.044 ml 392.080 ml 551.355 ml Output Total 200 ml 475 ml Balance 188.044 ml 192.080 ml 76.355 ml medications Current Medications Medications Dose Ordered Sig/Aida Route Start Time Stop Time Status Last Admin Dose Admin Fentanyl Citrate 250 ml @ 2.5 mls/hr Q24H IV 03/03/24 14:15 03/07/24 06:15 17.5 MLS/HR Midazolam HCl 50 ml @ 1 mls/hr Q24H IV 03/03/24 14:15 03/05/24 01:04 11 MLS/HR Hydralazine HCl 10 mg Q6HP PRN IV 03/03/24 17:00 Diagnostic Test (Pha) 1 strip Q6HR 03/03/24 18:00 03/07/24 06:17 1 STRIP Insulin Human Regular Q6HR SC 03/03/24 18:00 03/07/24 06:00 2 UNITS Dextrose 50 ml UD PRN IV 03/03/24 17:00 Sodium Chloride 10 ml Q8HR IV 03/03/24 22:00 03/07/24 06:17 10 ML Norepinephrine Bitartrate 250 ml @ 1.875 mls/ hr Q24H IV 03/04/24 16:15 Dexmedetomidine HCl 400 mcg/ Dextrose 100 ml @ 2.325 mls/ hr Q24H IV 03/04/24 16:30 03/05/24 11:29 2.325 MLS/HR Albuterol 2.5 mg Q8H NEB 03/05/24 02:00 03/07/24 06:23 2.5 MG Ipratropium [place] 0.5 mg Q8HR NEB 03/05/24 02:00 03/07/24 06:23 0.5 MG Oseltamivir Phosphate 30 mg BID GT 03/05/24 22:00 03/10/24 21:59 03/06/24 22:48 30 MG Acetaminophen 650 mg Q6HP PRN PO 03/05/24 13:15 Propofol 100 ml @ 1.518 mls/ hr Q24H IV 03/05/24 15:45 03/07/24 06:18 15.18 MLS/HR Enteral Nutritional Formula 1,000 ml 40ML/HR GT 03/06/24 11:15 03/06/24 13:44 1,000 ML Famotidine 20 mg DAILY IV 03/07/24 10:00 Methylprednisolone Sodium Succinate 40 mg BID IV 03/07/24 22:00 UNV Examination General Appearance: Sedated and on ventilator. Head Exam: Normal inspection Neck Exam: Normal inspection. Non-tender. Normal alignment Pulmonary/Respiratory: Chest non-tender. Bilateral lung crackles. Cardiovascular/Chest: Regular rate and rhythm. No murmurs. No JVD. Peripheral Pulses: 2+ Radial (R). 2+ Radial (L). 2+ Pedal (R). 2+ Pedal (L) Abdominal Exam: Normal bowel sounds. Soft. Nontender. No hepatospenomegaly. No masses Ankle Exam: Negative ankle edema Lower extremities: Negative lower extremity edema Neuro/Mental Status: Sedated. laboratory and microbiology Laboratory Tests 03/07/24 03:23 Test 03/07/24 03:23 Range/Units Serum Glucose 136 H 74-106 mg/dL Microbiology Date/Time Source Procedure Growth Status 03/04/24 00:25 Nose MRSA Screen - Final Complete 03/03/24 14:36 Blood Blood Culture - Preliminary NO GROWTH AFTER 72 HOURS OF INCUBATION. Resulted 03/03/24 14:29 Sputum Gram Stain - Final Complete 03/03/24 14:29 Sputum Respiratory Culture - Final Complete Problem List/Assessment/Plan Problem List/Assessment/Plan Acute hypoxic/hypercapnia respiratory failure Acute Chronic obstructive pulmonary disease exacerbation Septic shock due to Influenza infection NSTEMI type 2 due to above Hypertensive urgency Emphysema Diabetes mellitus type 2 History of hypertension Hypokalemia Plan -CT chest without contrast :Hyperinflation with increased retrosternal clear space. -on ventilator: Respiratory rate 24, tidal volume 400, FiO2 40%, peep 5. -ABG: PH 7.433, CO2 39.5, HC03 25.8. -breathing treatment with albuterol 2.5 mg nebs q.4 and ipratropium bromide 0.5 mg tab q.4. -received Solu-Medrol 125 mg IV on admission. Discontinued methylprednisolone given influenza infection. -insulin sliding scale for hyperglycemia. -DVT prophylaxis with Lovenox 30 mg subQ. -PUD prophylaxis with famotidine 20 mg IV b.i.d.. -feeding via G-tube. Intubated on 03/03/2024 Line: Left IJ inserted on 03/03/2024. Goals of care: Full code discussed greater than 22 minutes. Critical care time spent greater than 78 minutes. EXcluding cpap trial and bronchoscopy Plan discussed with Dr Bonilla. Transfer summary: Patient is 64-year-old female with underlying COPD patient nebulized back, diabetes mellitus type 2 and hypertension came to the hospital with the chief complaint shortness of breath. Patient was right away intubated in the emergency department for respiratory distress. Patient was treated with steroids Solu-Medrol, breathing treatment with albuterol and ipratropium bromide. For last 2 day given minimal ventilator setting, patient underwent CPAP trial however patient become tachypneic, minimal air leak patient failed CPAP trial. Patient also underwent a bronchoscopy on 03/07/2024. Planned to do CPAP trial again tomorrow morning. Reduced methylprednisolone to twice daily 40 mg IV. Plan discussed with: Son (RN), Other My Orders My Orders Orders - WALI YOUNGBLOOD Procedure Category Date Status Time Chest Xray 1 View XY 03/07/24 Resulted 04:00 Abg W/ Co-Ox RT 03/07/24 Logged 06:13 Cpap/Sed Vacation Med ORDERS 03/07/24 Transmitted Weaning 07:00 Methylprednisolone PHA 03/07/24 Logged Sod Succ (Solu Medrol 22:00 Date of Service: Mar 07, 2024 Billing Provider: ANA BONILLA MD Common Visit Codes: [id number] CARE 30-74 MIN WALI YOUNGBLOOD Mar 07, 2024 11:08 ANA BONILLA MD Mar 07, 2024 13:43
[2024-03-07] MEDS: MIDAZOLAM HCL 2MG/2ML 2ml VIAL (1mg/ml) IV ONE (11:10)
[2024-03-07] MEDS: FAMOTIDINE (10MG/ML) 2ML VL IV SCH (11:37)
--- NOTE | 2024-03-07 11:42 | DVHNC2 ---
Other Procedure Procedure Bronchoscopy Operative Note Procedure Performed: 1. Flexible Bronchoscopy 2. Right lower lobe bronchial washing 3. Left upper lobe bronchial washing Anesthesia/Medication: Patient intubated and sedated Preoperative Diagnosis: Pneumonia Postoperative Diagnosis: Same Estimated Blood Loss: Less than 10 ml Consent: The risk, benefits, and alternatives of bronchoscopy were discussed with the patients family who expressed understanding and agreed to proceed. Indications: Findings: No significant endobronchial lesions or abnormalities were seen. Description of the Procedure: Bronchoscope was introduced through the ET tube the bronchoscope was then inserted into the subglottic area, followed by the trachea, bilateral mainstem bronchi, and to the level of the subsegmental bronchi. There was no evidence of intrinsic or extrinsic compression. I could see a lot of mucus on the right side of the lung and especially in the right lower lobe. I suctioned out all the mucus and right lower lobe bronchial washings. I also did left upper lobe bronchial washings. At this point, there was no evidence of any ongoing bleeding. The bronchoscope was then withdrawn and the patient was allowed to recover. Date of Service: Mar 07, 2024 Billing Provider: ANA BONILLA MD Common Visit Codes: PROCEDURE ONLY Procedure Codes: [id number] ANA BONILLA MD Mar 07, 2024 11:42
[2024-03-07] MEDS: methylPREDNISolone SOD SUCC 40 MG/ML VL IV SCH (21:49)
[2024-03-07] MEDS: ALBUTEROL SULF 2.5 MG/0.5ML(0.5%) NEB SOLN NEB SCH (22:09)
[2024-03-08] VITALS (118 sets, daily range): BP systolic 86–187; BP diastolic 44–109; PULSE 48–105; RESP 10–27; TEMP 97.9–99.9; O2SAT 88–99
[2024-03-08 04:29] LABS: Basophils # (auto) 0.1 10 ^3/uL (0-0.2); Basophils % (auto) 0.5 % (0.0-2.0); Eosinophils # (auto) 0 10 ^3/uL (0-0.8); Hematocrit 32.1 % (36.0-46.0); Hemoglobin 10.6 g/dL (12.2-16.2); Lymphocytes # (auto) 0.9 10 ^3/uL (0.4-5.4); Lymphocytes % (auto) 7.1 % (10.0-50.0); Mean Corpuscular Hemoglobin 29.5 pg (28.0-32.0); Mean Corpuscular Volume 89.3 fL (80.0-100.0); Monocytes # (auto) 0.5 10 ^3/uL (0-1.3); Monocytes % (auto) 3.9 % (0.0-12.0); Neutrophils # (auto) 11.4 10 ^3/uL (1.6-8.6); Neutrophils % (auto) 88.5 % (37.0-80.0); Nucleated Red Blood Cells % 0.1 %; Platelet Count (auto) 176 10^3/uL (140-450); Red Cell Distribution Width 16.5 % (11.8-14.3); White Blood Cell 12.9 10^3/uL (4.4-10.8)
[2024-03-08 04:36] LABS: Calcium 9.5 mg/dL (8.7-10.4); Chloride 110 mmol/L (98-107); Potassium 3.8 mmol/L (3.5-5.1); Sodium 144 mmol/L (136-145)
[2024-03-08 04:37] LABS: Anion Gap 7 (5-15); Carbon Dioxide 27 mmol/L (20-31)
[2024-03-08 04:42] LABS: BUN/Creatinine Ratio 25.5 (10.0-20.0); Blood Urea Nitrogen 14 mg/dL (9-23); Glucose 132 mg/dL (74-106)
--- NOTE | 2024-03-08 05:19 | DVH ---
EXAM: XY CHEST XRAY 1 VIEW Indication:on vent Technique: Single frontal view of the chest was obtained Comparison: XY CHEST XRAY 1 VIEW on DOS: 03/07/24, XY CHEST XRAY 1 VIEW on DOS: 03/06/24, XY CHEST XR AY 1 VIEW on DOS: 03/05/24, XY CHEST PORTABLE on DOS: 03/04/24, XY CHEST PORTABLE on DOS: 03/03/24, X Y CHEST XRAY 1 VIEW on DOS: 03/07/24 FINDINGS: Lines and Tubes: Endotracheal tube in place 5 cm above the pedro. Enteric tube below the left diaphr agm in the stomach. Left internal jugular central venous catheter tip projects over the superior vena cava. Lungs: Mild right lung interstitial opacities. Pleura: No effusion. No pneumothorax. Cardiomediastinal contours: Unremarkable Bones: No acute osseous abnormality. IMPRESSION: No significant change compared to prior exam.
[2024-03-08 06:50] LABS: Base Excess 0.7 mmol/L (-2.0-3.0)
--- NOTE | 2024-03-08 09:28 | DVHPN2 ---
Subjective Chemically sedated Reviewed: Care Plan, H&P, Labs, Medications Changes from previous H/P or p: No Changes General: Per HPI Eyes: No Pain, No Vision change, No Conjunctivae inflammation, No Eyelid inflammation, No Other, No Redness ENT: No Ear pain, No Ear discharge, No Nose pain, No Nose discharge, No Nose congestion, No Mouth pain, No Mouth swelling, No Throat pain, No Throat swelling, No Other Cardiovascular: No Chest Pain, No Palpitations, No Orthopnea, No Paroxysmal Noc. Dyspnea, No Edema, No Lt Headedness, No Other Respiratory: No Cough, No Dry, No Shortness of breath, No SOB with excertion, No Wheezing, No Hemoptysis, No Pleuritic Pain, No Sputum, No Other Gastrointestinal: No Nausea, No Vomiting, No Abdominal Pain, No Diarrhea, No Constipation, No Melena, No Hematochezia, No Other Genitourinary: No Dysuria, No Frequency, No Incontinence, No Hematuria, No Retention, No Other Musculoskeletal: No other, No neck pain, No shoulder pain, No arm pain, No back pain, No hand pain, No leg pain, No foot pain Skin: No Rash, No Lesions, No Jaundice, No Bruising, No Other Objective Vitals Vital Signs Date Time Temp Pulse Resp B/P (MAP) Pulse Ox O2 Delivery O2 Flow Rate FiO2 03/08/24 08:45 97.9 54 24 153/81 (105) 97 208.2 03/08/24 08:19 Mechanical Ventilator+ 30 30 Intake/Output Intake and Output 03/08/24 07:00 Intake Total 1071.406 ml Output Total 600 ml Balance 471.406 ml Intake Oral 90 ml IV Total 939.406 ml Tube Feeding 42 ml Output Urine Total 600 ml General Appearance: Other (Chemically sedated) HEENT: Atraumatic, PERRLA Lungs: Clear to auscultation, Normal air movement, Other (Mechanical ventilation) Cardiovascular: Normal S1, Normal S2 Abdomen: Normal bowel sounds, Soft Genitourinary: No Apparent Abnormalities Musculoskeletal: Normal sensory function, Normal motor function Neuro: Normal gait, Normal speech Skin: Dry, Intact Psych/Mental Status: Mental status NL, Mood NL Medications Current Medications Medications Dose Ordered Sig/Aida Route Start Time Stop Time Status Last Admin Dose Admin Fentanyl Citrate 250 ml @ 2.5 mls/hr Q24H IV 03/03/24 14:15 03/08/24 01:38 27.5 MLS/HR Midazolam HCl 50 ml @ 1 mls/hr Q24H IV 03/03/24 14:15 03/05/24 01:04 11 MLS/HR Hydralazine HCl 10 mg Q6HP PRN IV 03/03/24 17:00 Diagnostic Test (Pha) 1 strip Q6HR 03/03/24 18:00 03/08/24 07:58 1 STRIP Insulin Human Regular Q6HR SC 03/03/24 18:00 03/08/24 05:47 2 UNITS Dextrose 50 ml UD PRN IV 03/03/24 17:00 Sodium Chloride 10 ml Q8HR IV 03/03/24 22:00 03/08/24 07:58 10 ML Norepinephrine Bitartrate 250 ml @ 1.875 mls/ hr Q24H IV 03/04/24 16:15 Dexmedetomidine HCl 400 mcg/ Dextrose 100 ml @ 2.325 mls/ hr Q24H IV 03/04/24 16:30 03/07/24 21:49 2.325 MLS/HR Ipratropium [place] 0.5 mg Q8HR NEB 03/05/24 02:00 03/08/24 05:48 0.5 MG Oseltamivir Phosphate 30 mg BID GT 03/05/24 22:00 03/10/24 21:59 03/07/24 21:50 30 MG Acetaminophen 650 mg Q6HP PRN PO 03/05/24 13:15 Propofol 100 ml @ 1.518 mls/ hr Q24H IV 03/05/24 15:45 03/08/24 08:02 15.18 MLS/HR Enteral Nutritional Formula 1,000 ml 40ML/HR GT 03/06/24 11:15 03/06/24 13:44 1,000 ML Famotidine 20 mg DAILY IV 03/07/24 10:00 03/08/24 07:57 20 MG Methylprednisolone Sodium Succinate 40 mg BID IV 03/07/24 22:00 03/08/24 07:58 40 MG Albuterol 2.5 mg Q8HR NEB 03/07/24 22:00 03/08/24 05:48 2.5 MG Laboratory Results Laboratory Tests 03/08/24 03:16 Chemistry Test 03/08/24 03:16 Calcium Level 9.5 mg/dL (8.7-10.4) Urinalysis Test 03/03/24 13:38 Urine Color Yellow (Yellow) Urine Clarity Clear (Clear) Urine pH 6.0 (5.0-9.0) Urine Specific [place] 1.022 (1.001-1.035) Urine Protein 1+ (Negative) H Urine Ketones 2+ (Negative) H Urine Blood Negative /uL (Negative) Urine Nitrite Negative (Negative) Urine Bilirubin Negative (Negative) Urine Urobilinogen 4 mg/dL (Negative) H Urine Leukocyte Esterase Negative /uL (Negative) Urine RBC 1 /hpf (0 - 4) Urine WBC 2 /hpf (0 - 5) Urine Squamous Epithelial Cells Few /hpf (<5) Urine Bacteria None seen /hpf (None Seen) Urine Hyaline Casts Few /lpf (0 - 2) Urine Mucus Few (None Seen) Urine Glucose Normal mg/dL (Normal) Blood Gas Results Test 03/08/24 06:41 Arterial Blood pH 7.458 (7.350-7.450) FiO2 % 30.0 Microbiology Microbiology Date/Time Source Procedure Growth Status 03/04/24 00:25 Nose MRSA Screen - Final Complete 03/03/24 14:36 Blood Blood Culture - Preliminary NO GROWTH AFTER 72 HOURS OF INCUBATION. Resulted 03/03/24 14:29 Sputum Gram Stain - Final Complete 03/03/24 14:29 Sputum Respiratory Culture - Final Complete Labs and/or images reviewed: Labs reviewed by me, Image(s) reviewed by me Assessment/Plan Assessment/Plan Impression: Acute hypoxic/hypercapnia respiratory failure Acute Chronic obstructive pulmonary disease exacerbation Septic shock due to Influenza infection NSTEMI type 2 due to above Hypertensive urgency Emphysema Diabetes mellitus type 2 History of hypertension Hypokalemia Substance abuse with positive toxicology: Opiates and cocaine Plan: -CPAP trial -continue current antibiotics, antiviral -regular insulin sliding scale -bronchodilators -antihypertensives as needed -wean sedation -PUD, DVT prophylaxis -repeat labs and chest x-ray in a.m. Critical care time spent with patient discussing and formulating plan of care: 40 minutes. This does not include time spent performing procedures. This medical document was created using an electronic medical record system with [employer] dictation system. Although this document has been carefully reviewed, there may still be some phonetic and typographical errors. These areas are purely typographical due to imperfections of the software programs, and do not reflect any compromise in the patient's medical care. Plan discussed with: Patient, Other (RN) Date of Service: Mar 08, 2024 Billing Provider: SIERRA MCCOLLUM NP Common Visit Codes: [id number] CARE 30-74 MIN SIERRA MCCOLLUM NP Mar 08, 2024 09:28
[2024-03-08] MEDS: DexAMETHasone SOD PHOS 10MG/1ML VIAL INJ IV ONE (12:49)
[2024-03-08] MEDS: hydrALAZINE HCL 20 MG/ML VL IV PRN (16:49)
--- NOTE | 2024-03-08 21:28 | DVHPN2 ---
Progress Note - Dictate Date Seen: Mar 08, 2024 Medical Necessity Reason Pt with a Central, PICC or Fol: Yes The following are medically ne: Central Line, Phillips Catheter Reason for phillips catheter: Strict I&O Subjective Patient seen and examined at bedside. Sedated, intubated on mechanical ventilator. Overnight events reviewed. vital signs Vital Sign Date Time Temp Pulse Resp B/P (MAP) Pulse Ox O2 Delivery O2 Flow Rate FiO2 03/08/24 21:15 99.7 66 23 119/69 (86) 96 211.5 03/08/24 20:14 30 03/08/24 20:00 Mechanical Ventilator+ Total Intake and Output 03/07/24 03/07/24 03/08/24 15:00 23:00 07:00 Intake Total 245.488 ml 412.215 ml 413.703 ml Output Total 250 ml 350 ml Balance 245.488 ml 162.215 ml 63.703 ml medications Current Medications Medications Dose Ordered Sig/Aida Route Start Time Stop Time Status Last Admin Dose Admin Fentanyl Citrate 250 ml @ 2.5 mls/hr Q24H IV 03/03/24 14:15 03/08/24 15:49 15 MLS/HR Midazolam HCl 50 ml @ 1 mls/hr Q24H IV 03/03/24 14:15 03/05/24 01:04 11 MLS/HR Hydralazine HCl 10 mg Q6HP PRN IV 03/03/24 17:00 03/08/24 16:49 10 MG Diagnostic Test (Pha) 1 strip Q6HR 03/03/24 18:00 03/08/24 12:49 1 STRIP Insulin Human Regular Q6HR SC 03/03/24 18:00 03/08/24 16:49 3 UNITS Dextrose 50 ml UD PRN IV 03/03/24 17:00 Sodium Chloride 10 ml Q8HR IV 03/03/24 22:00 03/08/24 07:58 10 ML Norepinephrine Bitartrate 250 ml @ 1.875 mls/ hr Q24H IV 03/04/24 16:15 Dexmedetomidine HCl 400 mcg/ Dextrose 100 ml @ 2.325 mls/ hr Q24H IV 03/04/24 16:30 03/07/24 21:49 2.325 MLS/HR Ipratropium [place] 0.5 mg Q8HR NEB 03/05/24 02:00 03/08/24 13:38 0.5 MG Oseltamivir Phosphate 30 mg BID GT 03/05/24 22:00 03/10/24 21:59 03/08/24 10:10 30 MG Acetaminophen 650 mg Q6HP PRN PO 03/05/24 13:15 Propofol 100 ml @ 1.518 mls/ hr Q24H IV 03/05/24 15:45 03/08/24 15:50 12.144 MLS/HR Enteral Nutritional Formula 1,000 ml 40ML/HR GT 03/06/24 11:15 03/06/24 13:44 1,000 ML Famotidine 20 mg DAILY IV 03/07/24 10:00 03/08/24 07:57 20 MG Methylprednisolone Sodium Succinate 40 mg BID IV 03/07/24 22:00 03/08/24 07:58 40 MG Albuterol 2.5 mg Q8HR NEB 03/07/24 22:00 03/08/24 13:38 2.5 MG objective Gen.: Patient lying in bed in medical ICU. Sedated, intubated on mechanical ventilator. Head: Normocephalic, atraumatic. Eyes: PERRLA. Ears: Normal external anatomy. Throat: Endotracheal tube and orogastric tube in place. Neck: Supple, trachea midline. Chest: Transmitted breath sounds bilaterally. Decreased air entry bilaterally. No wheezing. Bibasilar crackles. Cardiovascular: Positive S1, positive S2. Regular rate and rhythm. Abdomen: Positive bowel sounds in all 4 quadrants. Soft, nontender, nondistended. : Phillips in place. Normal external genitalia. Rectal: Deferred. Skin: Warm, dry. Intact. Extremities: 2+ radial pulses bilaterally. No lower extremity edema. Neuro: Sedated. laboratory and microbiology Laboratory Tests 03/08/24 03:16 Test 03/08/24 03:16 Range/Units Serum Glucose 132 H 74-106 mg/dL Assessment/Plan Impression: Acute hypoxic respiratory failure secondary to influenza infection Acute hypercarbic respiratory failure, PaCO2 65.3 mmHg Influenza type B infection On mechanical ventilator Elevated troponin Anemia Hyperglycemia Hypertensive urgency Sepsis Events: Remains on vent support On assist control with a respiratory rate of 24, tidal volume 400, PEEP of 5, FiO2 at 30%. Off Precedex On Fentanyl, Propofol for sedation Taper sedation as tolerated Off Levophed CPAP in the AM. Failed CPAP after 1 hour. Decadron 6 mg IVP x1. Continue bronchodilators Continue steroids Labs and imaging reviewed. Rest of plan as noted below. Plan: s/p intubation on mechanical ventilator CXR image and report reviewed. Endotracheal tube in place. Enteric tube in place. Left IJ central line in place. No pleural effusion or pneumothorax. ABG reviewed. Initial demonstrated acidemia due to CO2 retention. Repeat ABG after ventilator changes demonstrates compensation. On assist control with a respiratory rate of 24, tidal volume 400, PEEP of 5, FiO2 at 30%. Titrate FIO2 to keep O2 saturation above 92%. VAP bundle Daily ABG and CXR while intubated. Sedate for ventilatory synchrony Bronchodilators prn Pressors as necessary for hemodynamic support - currently off Titrate to keep MAP above 65 mmHg/SBP above 90 mmHg. IV steroids Tamiflu course for influenza B Continue antibiotics. F/u cultures. Urinalysis: Leuk Esterase, nitrites negative F/u Urine tox Monitor renal function due to Acute kidney injury. Monitor electrolytes. Supplement as necessary. Nutritional support. Accuchekcory ISS. GI proph: Pepcid BID DVT prophylaxis. Condition: Critical Prognosis: Poor given multiple comorbidities. Rest of plan per hospitalist and other consultants. A total of 35 minutes of critical care time was spent reviewing the patient record, examining the patient, making a diagnostic and therapeutic plan, discussing this plan with the medical personnel, following up on diagnostic studies and following the patient for clinical stability excluding any and all procedures. At least 50% of this time was spent in direct, [id number] contact. Thank you ASHLEE Vela for allowing me to participate in this patient's care. Further recommendations will depend on patient's clinical course. Please do not hesitate to contact me if you have any questions or concerns. This medical document was created using an electronic medical record system with [employer] dictation system. Although this document has been carefully reviewed, there may still be some phonetic and typographical errors. These areas are purely typographical due to imperfections of the software programs, and do not reflect any compromise in the patient's medical care. Plan discussed with: Other (NAJMA Wilkes) Critical Care Time(min): 35 SYLVIE RAMIREZ MD Mar 08, 2024 21:28
[2024-03-09] VITALS (115 sets, daily range): BP systolic 82–206; BP diastolic 48–96; PULSE 49–140; RESP 11–29; TEMP 96.3–100.4; O2SAT 89–100
[2024-03-09 03:32] LABS: Basophils # (auto) 0 10 ^3/uL (0-0.2); Basophils % (auto) 0.1 % (0.0-2.0); Eosinophils # (auto) 0 10 ^3/uL (0-0.8); Hematocrit 32.6 % (36.0-46.0); Hemoglobin 10.6 g/dL (12.2-16.2); Lymphocytes # (auto) 0.5 10 ^3/uL (0.4-5.4); Lymphocytes % (auto) 4.1 % (10.0-50.0); Mean Corpuscular Hgb Conc. 32.6 g/dL (32.0-36.0); Mean Corpuscular Volume 89.1 fL (80.0-100.0); Monocytes # (auto) 0.7 10 ^3/uL (0-1.3); Monocytes % (auto) 6.1 % (0.0-12.0); Neutrophils # (auto) 9.9 10 ^3/uL (1.6-8.6); Neutrophils % (auto) 89.7 % (37.0-80.0); Platelet Count (auto) 193 10^3/uL (140-450); Red Blood Cells 3.66 10^6/uL (4.0-5.20); Red Cell Distribution Width 16.3 % (11.8-14.3); White Blood Cell 11.1 10^3/uL (4.4-10.8)
[2024-03-09 03:43] LABS: Anion Gap 8 (5-15); Carbon Dioxide 26 mmol/L (20-31); Chloride 109 mmol/L (98-107); Potassium 3.8 mmol/L (3.5-5.1); Sodium 143 mmol/L (136-145)
[2024-03-09 03:44] LABS: Calcium 9.2 mg/dL (8.7-10.4)
[2024-03-09 03:49] LABS: BUN/Creatinine Ratio 29.8 (10.0-20.0); Blood Urea Nitrogen 17 mg/dL (9-23); Glucose 156 mg/dL (74-106); Magnesium 2.2 mg/dL (1.6-2.6)
--- NOTE | 2024-03-09 05:29 | DVH ---
CHEST RADIOGRAPH Indication:intubated Technique: Single frontal view of the chest was obtained Comparison: XY CHEST XRAY 1 VIEW on DOS: 03/08/24, XY CHEST XRAY 1 VIEW on DOS: 03/07/24, XY CHEST XR AY 1 VIEW on DOS: 03/06/24, XY CHEST XRAY 1 VIEW on DOS: 03/05/24, XY CHEST PORTABLE on DOS: 03/04/24 , XY CHEST XRAY 1 VIEW on DOS: 03/08/24 FINDINGS: Lines and Tubes: Endotracheal tube in place 5 cm above the pedro. Enteric tube below the left diaphr agm in the stomach. Left internal jugular central venous catheter tip projects over the superior vena cava. Lungs: Mild right lung interstitial opacities. Pleura: No effusion. No pneumothorax. Cardiomediastinal contours: Unremarkable Bones: No acute osseous abnormality. IMPRESSION: No significant change compared to prior exam.
[2024-03-09 07:17] LABS: Base Excess 0.6 mmol/L (-2.0-3.0)
--- NOTE | 2024-03-09 08:20 | DVHPN2 ---
Subjective Chemically sedated Reviewed: Care Plan, H&P, Labs, Medications Changes from previous H/P or p: No Changes General: Per HPI Eyes: No Pain, No Vision change, No Conjunctivae inflammation, No Eyelid inflammation, No Other, No Redness ENT: No Ear pain, No Ear discharge, No Nose pain, No Nose discharge, No Nose congestion, No Mouth pain, No Mouth swelling, No Throat pain, No Throat swelling, No Other Cardiovascular: No Chest Pain, No Palpitations, No Orthopnea, No Paroxysmal Noc. Dyspnea, No Edema, No Lt Headedness, No Other Respiratory: No Cough, No Dry, No Shortness of breath, No SOB with excertion, No Wheezing, No Hemoptysis, No Pleuritic Pain, No Sputum, No Other Gastrointestinal: No Nausea, No Vomiting, No Abdominal Pain, No Diarrhea, No Constipation, No Melena, No Hematochezia, No Other Genitourinary: No Dysuria, No Frequency, No Incontinence, No Hematuria, No Retention, No Other Musculoskeletal: No other, No neck pain, No shoulder pain, No arm pain, No back pain, No hand pain, No leg pain, No foot pain Skin: No Rash, No Lesions, No Jaundice, No Bruising, No Other Objective Vitals Vital Signs Date Time Temp Pulse Resp B/P (MAP) Pulse Ox O2 Delivery O2 Flow Rate FiO2 03/09/24 08:12 55 24 126/74 (91) 96 30 03/09/24 08:01 96.3 205.3 03/09/24 08:00 Mechanical Ventilator+ Intake/Output Intake and Output 03/09/24 07:00 Intake Total 776.758 ml Output Total 550 ml Balance 226.758 ml Intake Oral 110 ml IV Total 666.758 ml Output Urine Total 550 ml General Appearance: Alert, mild distress HEENT: Atraumatic, PERRLA Lungs: Clear to auscultation, Normal air movement, Other (Mechanical ventilation) Cardiovascular: Normal S1, Normal S2 Abdomen: Normal bowel sounds, Soft Genitourinary: No Apparent Abnormalities Musculoskeletal: Normal sensory function, Normal motor function Neuro: Normal gait, Normal speech Skin: Dry, Intact Psych/Mental Status: Mental status NL, Mood NL Medications Current Medications Medications Dose Ordered Sig/Aida Route Start Time Stop Time Status Last Admin Dose Admin Fentanyl Citrate 250 ml @ 2.5 mls/hr Q24H IV 11/11/24 14:15 03/09/24 03:20 20 MLS/HR Midazolam HCl 50 ml @ 1 mls/hr Q24H IV 03/03/24 14:15 03/05/24 01:04 11 MLS/HR Hydralazine HCl 10 mg Q6HP PRN IV 03/03/24 17:00 03/08/24 16:49 10 MG Diagnostic Test (Pha) 1 strip Q6HR 03/03/24 18:00 03/09/24 07:39 1 STRIP Insulin Human Regular Q6HR SC 03/03/24 18:00 03/09/24 05:49 2 UNITS Dextrose 50 ml UD PRN IV 03/03/24 17:00 Sodium Chloride 10 ml Q8HR IV 03/03/24 22:00 03/09/24 07:40 10 ML Norepinephrine Bitartrate 250 ml @ 1.875 mls/ hr Q24H IV 03/04/24 16:15 Dexmedetomidine HCl 400 mcg/ Dextrose 100 ml @ 2.325 mls/ hr Q24H IV 03/04/24 16:30 03/07/24 21:49 2.325 MLS/HR Ipratropium [place] 0.5 mg Q8HR NEB 03/05/24 02:00 03/09/24 06:46 0.5 MG Oseltamivir Phosphate 30 mg BID GT 03/05/24 22:00 03/10/24 21:59 03/08/24 22:14 30 MG Acetaminophen 650 mg Q6HP PRN PO 03/05/24 13:15 Propofol 100 ml @ 1.518 mls/ hr Q24H IV 03/05/24 15:45 03/09/24 05:11 13.662 MLS/HR Enteral Nutritional Formula 1,000 ml 40ML/HR GT 03/06/24 11:15 03/06/24 13:44 1,000 ML Famotidine 20 mg DAILY IV 03/07/24 10:00 03/09/24 07:39 20 MG Methylprednisolone Sodium Succinate 40 mg BID IV 03/07/24 22:00 03/09/24 07:39 40 MG Albuterol 2.5 mg Q8HR NEB 03/07/24 22:00 03/09/24 06:46 2.5 MG Laboratory Results Laboratory Tests 03/09/24 03:10 Chemistry Test 03/09/24 03:10 Calcium Level 9.2 mg/dL (8.7-10.4) Magnesium Level 2.2 mg/dL (1.6-2.6) Urinalysis Test 03/03/24 13:38 Urine Color Yellow (Yellow) Urine Clarity Clear (Clear) Urine pH 6.0 (5.0-9.0) Urine Specific [place] 1.022 (1.001-1.035) Urine Protein 1+ (Negative) H Urine Ketones 2+ (Negative) H Urine Blood Negative /uL (Negative) Urine Nitrite Negative (Negative) Urine Bilirubin Negative (Negative) Urine Urobilinogen 4 mg/dL (Negative) H Urine Leukocyte Esterase Negative /uL (Negative) Urine RBC 1 /hpf (0 - 4) Urine WBC 2 /hpf (0 - 5) Urine Squamous Epithelial Cells Few /hpf (<5) Urine Bacteria None seen /hpf (None Seen) Urine Hyaline Casts Few /lpf (0 - 2) Urine Mucus Few (None Seen) Urine Glucose Normal mg/dL (Normal) Blood Gas Results Test 03/09/24 07:01 Arterial Blood pH 7.482 (7.350-7.450) FiO2 % 30.0 Microbiology Microbiology Date/Time Source Procedure Growth Status 03/07/24 11:00 Bronchial Washings Gram Stain - Final Resulted 03/07/24 11:00 Bronchial Washings Respiratory Culture - Preliminary Resulted 03/04/24 00:25 Nose MRSA Screen - Final Complete 03/03/24 14:36 Blood Blood Culture - Final NO GROWTH AFTER 5 DAYS OF INCUBATION. Complete Labs and/or images reviewed: Labs reviewed by me, Image(s) reviewed by me Assessment/Plan Assessment/Plan Impression: Acute hypoxic/hypercapnia respiratory failure Acute Chronic obstructive pulmonary disease exacerbation Septic shock due to Influenza infection NSTEMI type 2 due to above Hypertensive urgency Emphysema Diabetes mellitus type 2 History of hypertension Hypokalemia Substance abuse with positive toxicology: Opiates and cocaine Plan: -events:. Patient did not have air leak yesterday. CPAP trial was acceptable. Today, patient has air leak with spontaneous breathing trial to commands with possible extubation. Patient treated with IV Decadron. -continue current antibiotics, antiviral -regular insulin sliding scale -bronchodilators -antihypertensives as needed -wean sedation -PUD, DVT prophylaxis -repeat labs and chest x-ray in a.m. Critical care time spent with patient discussing and formulating plan of care: 40 minutes. This does not include time spent performing procedures. This medical document was created using an electronic medical record system with [employer] dictation system. Although this document has been carefully reviewed, there may still be some phonetic and typographical errors. These areas are purely typographical due to imperfections of the software programs, and do not reflect any compromise in the patient's medical care. Plan discussed with: Patient, Other (RN) My Orders Orders - SIERRA MCCOLLUM NP Procedure Category Date Status Time Basic Metabolic Panel LAB 03/10/24 Verified 05:00 Basic Metabolic Panel LAB 03/11/24 Verified 05:00 Complete Blood Count LAB 03/10/24 Verified 05:00 Complete Blood Count LAB 03/11/24 Verified 05:00 Cpap Trial For Am ORDERS 03/09/24 Transmitted 08:00 Chest Portable XY 03/09/24 Resulted 04:00 Abg W/ Co-Ox RT 03/09/24 Logged 05:18 Morphine Sulfate PHA 03/09/24 Logged Injection 08:15 Date of Service: Mar 09, 2024 Billing Provider: SIERRA MCCOLLUM NP Common Visit Codes: [id number] CARE 30-74 MIN SIERRA MCCOLLUM NP Mar 09, 2024 08:20
[2024-03-09] MEDS: MORPHINE SULFATE INJ 2 MG/ml SYRG IV ONE (09:08)
--- NOTE | 2024-03-09 21:30 | DVHPN2 ---
Progress Note - Dictate Date Seen: Mar 09, 2024 Medical Necessity Reason Pt with a Central, PICC or Fol: Yes The following are medically ne: Central Line, Phillips Catheter Reason for phillips catheter: Strict I&O Subjective Patient seen and examined at bedside. Sedated, intubated on mechanical ventilator. Overnight events reviewed. vital signs Vital Sign Date Time Temp Pulse Resp B/P (MAP) Pulse Ox O2 Delivery O2 Flow Rate FiO2 03/09/24 20:00 52 24 114/66 (82) 100 30 03/09/24 18:30 98.6 209.5 03/09/24 17:43 Mechanical Ventilator+ Total Intake and Output 03/08/24 03/08/24 03/09/24 15:00 23:00 07:00 Intake Total 138.092 ml 314.004 ml 324.662 ml Output Total 250 ml 300 ml Balance 138.092 ml 64.004 ml 24.662 ml medications Current Medications Medications Dose Ordered Sig/Aida Route Start Time Stop Time Status Last Admin Dose Admin Fentanyl Citrate 250 ml @ 2.5 mls/hr Q24H IV 03/03/24 14:15 03/09/24 21:14 15 MLS/HR Midazolam HCl 50 ml @ 1 mls/hr Q24H IV 03/03/24 14:15 03/05/24 01:04 11 MLS/HR Hydralazine HCl 10 mg Q6HP PRN IV 03/03/24 17:00 03/08/24 16:49 10 MG Diagnostic Test (Pha) 1 strip Q6HR 03/03/24 18:00 03/09/24 16:16 1 STRIP Insulin Human Regular Q6HR SC 03/03/24 18:00 03/09/24 05:49 2 UNITS Dextrose 50 ml UD PRN IV 03/03/24 17:00 Sodium Chloride 10 ml Q8HR IV 03/03/24 22:00 03/09/24 07:40 10 ML Norepinephrine Bitartrate 250 ml @ 1.875 mls/ hr Q24H IV 03/04/24 16:15 Dexmedetomidine HCl 400 mcg/ Dextrose 100 ml @ 2.325 mls/ hr Q24H IV 03/04/24 16:30 03/09/24 10:35 2.325 MLS/HR Ipratropium [place] 0.5 mg Q8HR NEB 03/05/24 02:00 03/09/24 14:22 0.5 MG Oseltamivir Phosphate 30 mg BID GT 03/05/24 22:00 03/10/24 21:59 03/09/24 09:07 30 MG Acetaminophen 650 mg Q6HP PRN PO 03/05/24 13:15 Propofol 100 ml @ 1.518 mls/ hr Q24H IV 03/05/24 15:45 03/09/24 16:17 12.144 MLS/HR Enteral Nutritional Formula 1,000 ml 40ML/HR GT 03/06/24 11:15 03/06/24 13:44 1,000 ML Famotidine 20 mg DAILY IV 03/07/24 10:00 03/09/24 07:39 20 MG Methylprednisolone Sodium Succinate 40 mg BID IV 03/07/24 22:00 03/09/24 07:39 40 MG Albuterol 2.5 mg Q8HR NEB 03/07/24 22:00 03/09/24 14:22 2.5 MG Acetylcysteine 200 mg Q8HR NEB 03/09/24 22:00 objective Gen.: Patient lying in bed in medical ICU. Sedated, intubated on mechanical ventilator. Head: Normocephalic, atraumatic. Eyes: PERRLA. Ears: Normal external anatomy. Throat: Endotracheal tube and orogastric tube in place. Neck: Supple, trachea midline. Chest: Transmitted breath sounds bilaterally. Decreased air entry bilaterally. No wheezing. Bibasilar crackles. Cardiovascular: Positive S1, positive S2. Regular rate and rhythm. Abdomen: Positive bowel sounds in all 4 quadrants. Soft, nontender, nondistended. : Phillips in place. Normal external genitalia. Rectal: Deferred. Skin: Warm, dry. Intact. Extremities: 2+ radial pulses bilaterally. No lower extremity edema. Neuro: Sedated. laboratory and microbiology Laboratory Tests 03/09/24 03:10 Test 03/09/24 03:10 Range/Units Serum Glucose 156 H 74-106 mg/dL Assessment/Plan Impression: Acute hypoxic respiratory failure secondary to influenza infection Acute hypercarbic respiratory failure, PaCO2 65.3 mmHg Influenza type B infection On mechanical ventilator Elevated troponin Anemia Hyperglycemia Hypertensive urgency Sepsis Events: Remains on vent support On assist control with a respiratory rate of 24, tidal volume 400, PEEP of 5, FiO2 at 30%. On Fentanyl, Propofol for sedation Precedex for agitation Taper sedation as tolerated Increased ET tube secretions. CPAP trial #1 - patient noted to have apnea CPAP trial #2 - patient noted to have increased RR, increased HR, elevated SBP in 200s. Off Levophed Continue bronchodilators/Mucomyst CPT Continue antibiotics Obtain consent for bronchoscopy with BAL d/t increased ET tube secretions. Labs and imaging reviewed. Rest of plan as noted below. Plan: s/p intubation on mechanical ventilator CXR image and report reviewed. Endotracheal tube in place. Enteric tube in place. Left IJ central line in place. No pleural effusion or pneumothorax. ABG reviewed. Initial demonstrated acidemia due to CO2 retention. Repeat ABG after ventilator changes demonstrates compensation. On assist control with a respiratory rate of 24, tidal volume 400, PEEP of 5, FiO2 at 30%. Titrate FIO2 to keep O2 saturation above 92%. VAP bundle Daily ABG and CXR while intubated. Sedate for ventilator synchrony Bronchodilators prn Pressors as necessary for hemodynamic support - currently off Titrate to keep MAP above 65 mmHg/SBP above 90 mmHg. IV steroids Tamiflu course for influenza B Continue antibiotics. F/u cultures. Urinalysis: Leuk Esterase, nitrites negative F/u Urine tox Monitor renal function due to Acute kidney injury. Monitor electrolytes. Supplement as necessary. Nutritional support. KATLIN Vaughan. GI proph: Pepcid BID DVT prophylaxis. Condition: Critical Prognosis: Poor given multiple comorbidities. Rest of plan per hospitalist and other consultants. A total of 35 minutes of critical care time was spent reviewing the patient record, examining the patient, making a diagnostic and therapeutic plan, discussing this plan with the medical personnel, following up on diagnostic studies and following the patient for clinical stability excluding any and all procedures. At least 50% of this time was spent in direct, [id number] contact. Thank you ASHLEE Vela for allowing me to participate in this patient's care. Further recommendations will depend on patient's clinical course. Please do not hesitate to contact me if you have any questions or concerns. This medical document was created using an electronic medical record system with [employer] system. Although this document has been carefully reviewed, there may still be some phonetic and typographical errors. These areas are purely typographical due to imperfections of the software programs, and do not reflect any compromise in the patient's medical care. Plan discussed with: Other (NAJMA Wilkes) Critical Care Time(min): 35 SYLVIE RAMIREZ MD Mar 09, 2024 21:30
[2024-03-09] MEDS: ACETYLCYSTEINE 20%(200MG/ML) SOL 4ML NEB SCH (22:30)
[2024-03-09] MEDS: SUCCINYLCHOLINE CHLORIDE 20 MG/ML 10ML VIAL IV ONE ×2 (22:51→23:30)
--- NOTE | 2024-03-09 22:56 | DVHNC2 ---
Procedure - Procedure: Endotracheal Intubation INDICATION: Acute respiratory failure, accessory muscle usage, Clogged ET tube with mucoid secretions. Physician: Sylvie Martinez MD CONSENT: Emergent procedure. Implied. PROCEDURE SUMMARY: A time out was performed. My hands were washed immediately prior to the procedur e. I wore a surgical cap, mask with protective eyewear, gown and gloves throughout the procedure. The patient was placed on a bus driver/monitor including continuous pulse oximetry. The patient received 100mg succinylcholine for induction. Cricoid pressure was maintained from time induction agent was given to time of cuff balloon inflation. Using a MAC 4 GlideScope and a size 8.0 endo tracheal tube with stylet, the patient was intubated on the 1 attempt. The stylet was removed and cuff balloon was inflated. Appropriate endotracheal tube position was confirmed by direct visualization of vocal cord passage, fogging of the tube, CO2 colometric indicator and symmetric breath sounds. The tube was secured at 25 cm at the lips. Post intubation chest x-ray is pending. Placement was confirmed by bronchoscopy. Plan for CXR for re-adjustment. CPT Code: 14280 SYLVIE MARTINEZ MD Mar 09, 2024 22:56
--- NOTE | 2024-03-09 23:00 | DVHNC2 ---
Procedure - Bronchoscopy procedure note: Indications: Possible mucous plugging, increase ET tube secretions. Medicines: See pals specialist notes. Complications: None Procedure: Patient medications and allergies reviewed. The risks and benefits of the procedure and the sedation options and risk were discussed with the patient's healthcare proxy. All questions were answered and informed consent was obtained. Patient identification and proposed procedure were verified prior to the procedure by the physician, and a nurse, and the respiratory therapist in ICU room. The heart rate, respiratory rate, oxygen saturations, blood pressure, adequacy of pulmonary ventilation, and response to care were monitored throughout the procedure. The physical status of the patient was reassessed after the procedure. After obtaining informed consent, the bronchoscope was introduced through the endotracheal tube and advanced into the trachea bronchial tree of both lungs. The procedure was accomplished without difficulty. The patient tolerated the procedure well. Findings: The trachea is in normal caliber. The pedro is sharp. The tracheobronchial tree of the right lung was examined to at least the first subsegmental level. The bronchial mucosa and anatomy in the right lung are normal. There are no endobronchial lesions. There was copious clear viscous secretions from right main stem bronchus onward throughout R1-R10. Right middle lobe (RML) Bronchoalveolar lavage (BAL) obtained. RML BAL sent for gram stain and culture, viral culture, fungal culture. The left upper lobe, lingula, and left lower lobe were examined to at least the first subsegmental level. Bronchial mucosa and anatomy in the left upper lobe and lingula are normal. There were no endobronchial lesions. There was copious whitish secretions from left main stem bronchus onward throughout L5-L10. Mucous plugging removed from L5-L10. There was no active bleeding at the completion of the procedure. Copious secretions were removed from oropharynx and appeared to be going into airway around ET tube. ET tube was exchanged as it was almost completely occlusion with dried up secretions. See separate procedure note. Estimated blood loss: Less than 5 mL. Impression: Bilateral lower lobe atelectasis due to mucous plugging Mucous plugging from R1-R10 to L6-L10 RML BAL performed Recommendation: Follow-up RML BAL results. Pulmonary toileting. Oral care. Procedure codes: 76265, bronchoscopy, rigid and flexible, including fluoroscopic guidance, one performed; with bronchial endobronchial broncho-alveolar lavage, single or multiple sites SYLVIE RAMIREZ MD Mar 09, 2024 23:00
[2024-03-10] VITALS (87 sets, daily range): BP systolic 82–207; BP diastolic 45–106; PULSE 57–103; RESP 12–34; TEMP 97.9–100; O2SAT 92–100
--- NOTE | 2024-03-10 03:58 | DVH ---
CHEST RADIOGRAPH Indication:INTUBATED Technique: Single frontal view of the chest was obtained Comparison: XY CHEST PORTABLE on DOS: 03/09/24, XY CHEST XRAY 1 VIEW on DOS: 03/08/24, XY CHEST XRAY 1 VIEW on DOS: 03/07/24, XY CHEST XRAY 1 VIEW on DOS: 03/06/24, XY CHEST XRAY 1 VIEW on DOS: 03/05/24 , XY CHEST PORTABLE on DOS: 03/09/24 FINDINGS: Lines and Tubes: Endotracheal tube in place 5 cm above the pedro. Enteric tube below the left diaphr agm in the stomach. Left internal jugular central venous catheter tip projects over the superior vena cava. Lungs: Mild right lung interstitial opacities. Pleura : No effusion. No pneumothorax. Cardiome diastinal contours: Unremarkable Bones: No acute osseous abnormality. IMPRESSION: 1. No significant change compared to prior exam.
[2024-03-10 04:16] LABS: Basophils # (auto) 0 10 ^3/uL (0-0.2); Basophils % (auto) 0.3 % (0.0-2.0); Eosinophils # (auto) 0 10 ^3/uL (0-0.8); Hemoglobin 10.7 g/dL (12.2-16.2); Lymphocytes # (auto) 0.6 10 ^3/uL (0.4-5.4); Mean Corpuscular Hemoglobin 29.2 pg (28.0-32.0); Mean Corpuscular Hgb Conc. 32.5 g/dL (32.0-36.0); Mean Corpuscular Volume 89.7 fL (80.0-100.0); Monocytes # (auto) 0.8 10 ^3/uL (0-1.3); Monocytes % (auto) 6.2 % (0.0-12.0); Neutrophils # (auto) 10.7 10 ^3/uL (1.6-8.6); Neutrophils % (auto) 88.5 % (37.0-80.0); Nucleated Red Blood Cells % 0.1 %; Platelet Count (auto) 196 10^3/uL (140-450); Red Blood Cells 3.68 10^6/uL (4.0-5.20); Red Cell Distribution Width 16.2 % (11.8-14.3); White Blood Cell 12.1 10^3/uL (4.4-10.8)
[2024-03-10 04:33] LABS: Chloride 110 mmol/L (98-107); Potassium 3.5 mmol/L (3.5-5.1); Sodium 142 mmol/L (136-145)
[2024-03-10 04:34] LABS: Anion Gap 7 (5-15); Calcium 9.1 mg/dL (8.7-10.4); Carbon Dioxide 25 mmol/L (20-31)
[2024-03-10 04:39] LABS: BUN/Creatinine Ratio 30.4 (10.0-20.0); Blood Urea Nitrogen 17 mg/dL (9-23); Glucose 129 mg/dL (74-106)
[2024-03-10 04:40] LABS: Magnesium 2.2 mg/dL (1.6-2.6)
[2024-03-10 07:20] LABS: Base Excess -0.3 mmol/L (-2.0-3.0)
--- NOTE | 2024-03-10 10:28 | DVHPN2 ---
Subjective Chemically sedated Reviewed: Care Plan, H&P, Labs, Medications Changes from previous H/P or p: No Changes General: Per HPI Eyes: No Pain, No Vision change, No Conjunctivae inflammation, No Eyelid inflammation, No Other, No Redness ENT: No Ear pain, No Ear discharge, No Nose pain, No Nose discharge, No Nose congestion, No Mouth pain, No Mouth swelling, No Throat pain, No Throat swelling, No Other Cardiovascular: No Chest Pain, No Palpitations, No Orthopnea, No Paroxysmal Noc. Dyspnea, No Edema, No Lt Headedness, No Other Respiratory: No Cough, No Dry, No Shortness of breath, No SOB with excertion, No Wheezing, No Hemoptysis, No Pleuritic Pain, No Sputum, No Other Gastrointestinal: No Nausea, No Vomiting, No Abdominal Pain, No Diarrhea, No Constipation, No Melena, No Hematochezia, No Other Genitourinary: No Dysuria, No Frequency, No Incontinence, No Hematuria, No Retention, No Other Musculoskeletal: No other, No neck pain, No shoulder pain, No arm pain, No back pain, No hand pain, No leg pain, No foot pain Skin: No Rash, No Lesions, No Jaundice, No Bruising, No Other Objective Vitals Vital Signs Date Time Temp Pulse Resp B/P (MAP) Pulse Ox O2 Delivery O2 Flow Rate FiO2 03/10/24 09:53 63 03/10/24 09:52 30 03/10/24 09:52 24 99 Mechanical Ventilator+ 03/10/24 09:50 122/71 (88) 03/10/24 09:30 100.0 212.0 Intake/Output Intake and Output 03/10/24 07:00 Intake Total 584.002 ml Output Total 525 ml Balance 59.002 ml Intake Oral 50 ml IV Total 534.002 ml Output Urine Total 525 ml General Appearance: Alert, mild distress, Other (Chemically sedated) HEENT: Atraumatic, PERRLA Lungs: Clear to auscultation, Normal air movement, Other (Mechanical ventilation) Cardiovascular: Normal S1, Normal S2 Abdomen: Normal bowel sounds, Soft Genitourinary: No Apparent Abnormalities Musculoskeletal: Normal sensory function, Normal motor function Neuro: Normal gait, Normal speech Skin: Dry, Intact Psych/Mental Status: Mental status NL, Mood NL Medications Current Medications Medications Dose Ordered Sig/Aida Route Start Time Stop Time Status Last Admin Dose Admin Fentanyl Citrate 250 ml @ 2.5 mls/hr Q24H IV 03/03/24 14:15 03/09/24 21:14 15 MLS/HR Midazolam HCl 50 ml @ 1 mls/hr Q24H IV 03/03/24 14:15 03/05/24 01:04 11 MLS/HR Hydralazine HCl 10 mg Q6HP PRN IV 03/03/24 17:00 03/08/24 16:49 10 MG Diagnostic Test (Pha) 1 strip Q6HR 03/03/24 18:00 03/10/24 06:10 1 STRIP Insulin Human Regular Q6HR SC 03/03/24 18:00 03/10/24 06:09 2 UNITS Dextrose 50 ml UD PRN IV 03/03/24 17:00 Sodium Chloride 10 ml Q8HR IV 03/03/24 22:00 03/10/24 06:10 10 ML Norepinephrine Bitartrate 250 ml @ 1.875 mls/ hr Q24H IV 03/04/24 16:15 Dexmedetomidine HCl 400 mcg/ Dextrose 100 ml @ 2.325 mls/ hr Q24H IV 03/04/24 16:30 03/09/24 10:35 2.325 MLS/HR Ipratropium [place] 0.5 mg Q8HR NEB 03/05/24 02:00 03/10/24 06:50 0.5 MG Oseltamivir Phosphate 30 mg BID GT 03/05/24 22:00 03/10/24 21:59 03/10/24 08:46 30 MG Acetaminophen 650 mg Q6HP PRN PO 03/05/24 13:15 Propofol 100 ml @ 1.518 mls/ hr Q24H IV 03/05/24 15:45 03/10/24 07:28 9.108 MLS/HR Enteral Nutritional Formula 1,000 ml 40ML/HR GT 03/06/24 11:15 03/06/24 13:44 1,000 ML Famotidine 20 mg DAILY IV 03/07/24 10:00 03/10/24 08:44 20 MG Methylprednisolone Sodium Succinate 40 mg BID IV 03/07/24 22:00 03/10/24 08:44 40 MG Albuterol 2.5 mg Q8HR NEB 03/07/24 22:00 03/10/24 06:51 2.5 MG Acetylcysteine 200 mg Q8HR NEB 03/09/24 22:00 03/10/24 06:50 200 MG Morphine Sulfate 2 mg Q4HPRN PRN IV 03/10/24 09:15 Laboratory Results Laboratory Tests 03/10/24 03:24 Chemistry Test 03/10/24 03:24 Calcium Level 9.1 mg/dL (8.7-10.4) Magnesium Level 2.2 mg/dL (1.6-2.6) Urinalysis Test 03/03/24 13:38 Urine Color Yellow (Yellow) Urine Clarity Clear (Clear) Urine pH 6.0 (5.0-9.0) Urine Specific [place] 1.022 (1.001-1.035) Urine Protein 1+ (Negative) H Urine Ketones 2+ (Negative) H Urine Blood Negative /uL (Negative) Urine Nitrite Negative (Negative) Urine Bilirubin Negative (Negative) Urine Urobilinogen 4 mg/dL (Negative) H Urine Leukocyte Esterase Negative /uL (Negative) Urine RBC 1 /hpf (0 - 4) Urine WBC 2 /hpf (0 - 5) Urine Squamous Epithelial Cells Few /hpf (<5) Urine Bacteria None seen /hpf (None Seen) Urine Hyaline Casts Few /lpf (0 - 2) Urine Mucus Few (None Seen) Urine Glucose Normal mg/dL (Normal) Blood Gas Results Test 03/10/24 07:14 Arterial Blood pH 7.458 (7.350-7.450) FiO2 % 30.0 Microbiology Microbiology Date/Time Source Procedure Growth Status 03/07/24 11:00 Bronchial Washings Gram Stain - Final Complete 03/07/24 11:00 Bronchial Washings Respiratory Culture - Final Complete 03/04/24 00:25 Nose MRSA Screen - Final Complete 03/03/24 14:36 Blood Blood Culture - Final NO GROWTH AFTER 5 DAYS OF INCUBATION. Complete Labs and/or images reviewed: Labs reviewed by me, Image(s) reviewed by me Assessment/Plan Assessment/Plan Impression: Acute hypoxic/hypercapnia respiratory failure Acute Chronic obstructive pulmonary disease exacerbation Septic shock due to Influenza infection NSTEMI type 2 due to above Hypertensive urgency Emphysema Diabetes mellitus type 2 History of hypertension Hypokalemia Substance abuse with positive toxicology: Opiates and cocaine Plan: -events: Patient was extubated yesterday. Plans for CPAP trial this a.m.. Sedation has been weaned off. Patient received full dose of Tamiflu, discontinue. WBC increase probably secondary to IV Solu-Medrol. -continue current antibiotics -regular insulin sliding scale -bronchodilators -antihypertensives as needed -wean sedation -PUD, DVT prophylaxis -repeat labs and chest x-ray in a.m. Critical care time spent with patient discussing and formulating plan of care: 40 minutes. This does not include time spent performing procedures. This medical document was created using an electronic medical record system with [employer] dictation system. Although this document has been carefully reviewed, there may still be some phonetic and typographical errors. These areas are purely typographical due to imperfections of the software programs, and do not reflect any compromise in the patient's medical care. Plan discussed with: Patient, Other (RN) My Orders Orders - SIERRA MCCOLLUM NP Procedure Category Date Status Time Morphine Sulfate PHA 03/10/24 In Process Injection 09:15 Date of Service: Mar 10, 2024 Billing Provider: SIERRA MCCOLLUM NP Common Visit Codes: [id number] CARE 30-74 MIN SIERRA MCCOLLUM NP Mar 10, 2024 10:28
[2024-03-10 11:06] LABS: Base Excess -3.5 mmol/L (-2.0-3.0)
[2024-03-10] MEDS: MORPHINE SULFATE INJ 2 MG/ml SYRG IV PRN (11:58)
[2024-03-10] MEDS: ACETAMINOPHEN 325 MG TAB PO PRN (16:03)
--- NOTE | 2024-03-10 22:30 | DVHPN2 ---
Progress Note - Dictate Date Seen: Mar 10, 2024 Medical Necessity Reason Pt with a Central, PICC or Fol: Yes The following are medically ne: Central Line, Phillips Catheter Reason for phillips catheter: Strict I&O Subjective Patient seen and examined at bedside. Sedated, intubated on mechanical ventilator. Overnight events reviewed. vital signs Vital Sign Date Time Temp Pulse Resp B/P (MAP) Pulse Ox O2 Delivery O2 Flow Rate FiO2 03/10/24 22:00 92 03/10/24 22:00 20 95 Nasal Cannula* 2 28 03/10/24 21:20 169/74 03/10/24 20:00 99.5 211.1 Total Intake and Output 03/09/24 03/09/24 03/10/24 15:00 23:00 07:00 Intake Total 77.232 ml 289.415 ml 217.355 ml Output Total 300 ml 225 ml Balance 77.232 ml -10.585 ml -7.645 ml medications Current Medications Medications Dose Ordered Sig/Aida Route Start Time Stop Time Status Last Admin Dose Admin Hydralazine HCl 10 mg Q6HP PRN IV 03/03/24 17:00 03/10/24 21:20 10 MG Diagnostic Test (Pha) 1 strip Q6HR 03/03/24 18:00 03/10/24 17:37 1 STRIP Insulin Human Regular Q6HR SC 03/03/24 18:00 03/10/24 17:37 2 UNITS Dextrose 50 ml UD PRN IV 03/03/24 17:00 Sodium Chloride 10 ml Q8HR IV 03/03/24 22:00 03/10/24 21:20 10 ML Norepinephrine Bitartrate 250 ml @ 1.875 mls/ hr Q24H IV 03/04/24 16:15 Ipratropium [place] 0.5 mg Q8HR NEB 03/05/24 02:00 03/10/24 21:49 0.5 MG Acetaminophen 650 mg Q6HP PRN PO 03/05/24 13:15 03/10/24 16:03 650 MG Enteral Nutritional Formula 1,000 ml 40ML/HR GT 03/06/24 11:15 03/06/24 13:44 1,000 ML Famotidine 20 mg DAILY IV 03/07/24 10:00 03/10/24 08:44 20 MG Albuterol 2.5 mg Q8HR NEB 03/07/24 22:00 03/10/24 21:49 2.5 MG Acetylcysteine 200 mg Q8HR NEB 03/09/24 22:00 03/10/24 21:49 200 MG Morphine Sulfate 2 mg Q4HPRN PRN IV 03/10/24 09:15 03/10/24 20:06 2 MG objective Gen.: Patient lying in bed in medical ICU. Sedated, intubated on mechanical ventilator. Head: Normocephalic, atraumatic. Eyes: PERRLA. Ears: Normal external anatomy. Throat: Endotracheal tube and orogastric tube in place. Neck: Supple, trachea midline. Chest: Transmitted breath sounds bilaterally. Decreased air entry bilaterally. No wheezing. Bibasilar crackles. Cardiovascular: Positive S1, positive S2. Regular rate and rhythm. Abdomen: Positive bowel sounds in all 4 quadrants. Soft, nontender, nondistended. : Phillips in place. Normal external genitalia. Rectal: Deferred. Skin: Warm, dry. Intact. Extremities: 2+ radial pulses bilaterally. No lower extremity edema. Neuro: Sedated. laboratory and microbiology Laboratory Tests 03/10/24 03:24 Test 03/10/24 03:24 Range/Units Serum Glucose 129 H 74-106 mg/dL Assessment/Plan Impression: Acute hypoxic respiratory failure secondary to influenza infection Acute hypercarbic respiratory failure, PaCO2 65.3 mmHg Influenza type B infection On mechanical ventilator Elevated troponin Anemia Hyperglycemia Hypertensive urgency Sepsis Events: Vent support Assist control with a respiratory rate of 24, tidal volume 400, PEEP of 5, FiO2 at 30%. CPAP trial with PS 8, PEEP of 5 - pt tolerating On Fentanyl, Propofol for sedation Taper sedation as tolerated Off Levophed Continue bronchodilators/Mucomyst CPT Continue antibiotics Tamiflu completed Awaiting ABG + weaning parameters Weaning parameters at goal Plan for extubation. S/p bronchoscopy with RML BAL d/t increased ET tube secretions on 03/09. Labs and imaging reviewed. Rest of plan as noted below. Plan: s/p intubation on mechanical ventilator CXR image and report reviewed. Endotracheal tube in place. Enteric tube in place. Left IJ central line in place. No pleural effusion or pneumothorax. ABG reviewed. Initial demonstrated acidemia due to CO2 retention. Repeat ABG after ventilator changes demonstrates compensation. On assist control with a respiratory rate of 24, tidal volume 400, PEEP of 5, FiO2 at 30%. Titrate FIO2 to keep O2 saturation above 92%. VAP bundle Daily ABG and CXR while intubated. Sedate for ventilator synchrony Bronchodilators prn Pressors as necessary for hemodynamic support - currently off Titrate to keep MAP above 65 mmHg/SBP above 90 mmHg. IV steroids Tamiflu course for influenza B - completed Continue antibiotics. F/u cultures. Urinalysis: Leuk Esterase, nitrites negative F/u Urine tox Monitor renal function due to Acute kidney injury. Monitor electrolytes. Supplement as necessary. Nutritional support. Accucheks, ISS. GI proph: Pepcid BID DVT prophylaxis. Condition: Critical Prognosis: Poor given multiple comorbidities. Rest of plan per hospitalist and other consultants. A total of 35 minutes of critical care time was spent reviewing the patient record, examining the patient, making a diagnostic and therapeutic plan, discussing this plan with the medical personnel, following up on diagnostic studies and following the patient for clinical stability excluding any and all procedures. At least 50% of this time was spent in direct, [id number] contact. Thank you ASHLEE Vela for allowing me to participate in this patient's care. Further recommendations will depend on patient's clinical course. Please do not hesitate to contact me if you have any questions or concerns. This medical document was created using an electronic medical record system with [employer] dictation system. Although this document has been carefully reviewed, there may still be some phonetic and typographical errors. These areas are purely typographical due to imperfections of the software programs, and do not reflect any compromise in the patient's medical care. Dietary Evaluation Review Comments: 1) Consider advancing pt diet when medically feasible to a CCHO 45g/Cardiac diet, modifier per [employer] H[employer] INSPECTOR recommendations 2) Continue current plan fo care Expected Outcomes/Goals: F/U in 2-3 days Plan discussed with: Other (NAJMA Guzman) Critical Care Time(min): 35 SYLVIE RAMIREZ MD Mar 10, 2024 22:30
[2024-03-11] VITALS (17 sets, daily range): BP systolic 145–198; BP diastolic 76–94; PULSE 81–108; RESP 16–22; TEMP 97.9–99; O2SAT 94–100
[2024-03-11 10:25] LABS: Basophils # (auto) 0.1 10 ^3/uL (0-0.2); Basophils % (auto) 0.8 % (0.0-2.0); Eosinophils # (auto) 0.1 10 ^3/uL (0-0.8); Eosinophils % (auto) 0.8 % (0.0-7.0); Hematocrit 39.2 % (36.0-46.0); Hemoglobin 12.7 g/dL (12.2-16.2); Lymphocytes # (auto) 3.7 10 ^3/uL (0.4-5.4); Lymphocytes % (auto) 23.9 % (10.0-50.0); Mean Corpuscular Hgb Conc. 32.4 g/dL (32.0-36.0); Mean Corpuscular Volume 89.6 fL (80.0-100.0); Monocytes # (auto) 1.8 10 ^3/uL (0-1.3); Monocytes % (auto) 11.4 % (0.0-12.0); Neutrophils # (auto) 9.8 10 ^3/uL (1.6-8.6); Neutrophils % (auto) 63.1 % (37.0-80.0); Nucleated Red Blood Cells % 0.1 %; Platelet Count (auto) 259 10^3/uL (140-450); Red Blood Cells 4.37 10^6/uL (4.0-5.20); Red Cell Distribution Width 16.3 % (11.8-14.3); White Blood Cell 15.6 10^3/uL (4.4-10.8)
[2024-03-11 10:30] LABS: Chloride 106 mmol/L (98-107); Sodium 140 mmol/L (136-145)
[2024-03-11 10:31] LABS: Anion Gap 11 (5-15); Carbon Dioxide 23 mmol/L (20-31)
[2024-03-11 10:36] LABS: BUN/Creatinine Ratio 12.9 (10.0-20.0); Blood Urea Nitrogen 9 mg/dL (9-23); Glucose 191 mg/dL (74-106)
--- NOTE | 2024-03-11 11:54 | DVHPN2 ---
Subjective Chemically sedated Reviewed: Care Plan, H&P, Labs, Medications Changes from previous H/P or p: No Changes General: Per HPI Eyes: No Pain, No Vision change, No Conjunctivae inflammation, No Eyelid inflammation, No Other, No Redness ENT: No Ear pain, No Ear discharge, No Nose pain, No Nose discharge, No Nose congestion, No Mouth pain, No Mouth swelling, No Throat pain, No Throat swelling, No Other Cardiovascular: No Chest Pain, No Palpitations, No Orthopnea, No Paroxysmal Noc. Dyspnea, No Edema, No Lt Headedness, No Other Respiratory: No Cough, No Dry, No Shortness of breath, No SOB with excertion, No Wheezing, No Hemoptysis, No Pleuritic Pain, No Sputum, No Other Gastrointestinal: No Nausea, No Vomiting, No Abdominal Pain, No Diarrhea, No Constipation, No Melena, No Hematochezia, No Other Genitourinary: No Dysuria, No Frequency, No Incontinence, No Hematuria, No Retention, No Other Musculoskeletal: No other, No neck pain, No shoulder pain, No arm pain, No back pain, No hand pain, No leg pain, No foot pain Skin: No Rash, No Lesions, No Jaundice, No Bruising, No Other Objective Vitals Vital Signs Date Time Temp Pulse Resp B/P (MAP) Pulse Ox O2 Delivery O2 Flow Rate FiO2 03/11/24 08:46 97.9 89 19 170/77 (108) 95 97.9 03/11/24 08:00 Nasal Cannula* 2 28 Intake/Output Intake and Output 03/11/24 07:00 Intake Total 1316.530 ml Output Total 900 ml Balance 416.530 ml Intake Oral 1300 ml IV Total 16.530 ml Output Urine Total 900 ml General Appearance: Alert, mild distress, Other (Chemically sedated) HEENT: Atraumatic, PERRLA Lungs: Clear to auscultation, Normal air movement, Other (Mechanical ventilation) Cardiovascular: Normal S1, Normal S2 Abdomen: Normal bowel sounds, Soft Genitourinary: No Apparent Abnormalities Musculoskeletal: Normal sensory function, Normal motor function Neuro: Normal gait, Normal speech Skin: Dry, Intact Psych/Mental Status: Mental status NL, Mood NL Medications Current Medications Medications Dose Ordered Sig/Aida Route Start Time Stop Time Status Last Admin Dose Admin Hydralazine HCl 10 mg Q6HP PRN IV 03/03/24 17:00 03/11/24 05:56 10 MG Diagnostic Test (Pha) 1 strip Q6HR 03/03/24 18:00 03/11/24 06:00 1 STRIP Insulin Human Regular Q6HR SC 03/03/24 18:00 03/10/24 17:37 2 UNITS Dextrose 50 ml UD PRN IV 03/03/24 17:00 Sodium Chloride 10 ml Q8HR IV 03/03/24 22:00 03/11/24 06:00 10 ML Ipratropium [place] 0.5 mg Q8HR NEB 03/05/24 02:00 03/11/24 06:51 0.5 MG Acetaminophen 650 mg Q6HP PRN PO 03/05/24 13:15 03/10/24 16:03 650 MG Famotidine 20 mg DAILY IV 03/07/24 10:00 03/11/24 08:34 20 MG Albuterol 2.5 mg Q8HR NEB 03/07/24 22:00 03/11/24 06:51 2.5 MG Acetylcysteine 200 mg Q8HR NEB 03/09/24 22:00 03/11/24 06:51 200 MG Morphine Sulfate 2 mg Q4HPRN PRN IV 03/10/24 09:15 03/11/24 08:36 2 MG Acetaminophen/ Hydrocodone Bitart 1 tab Q4HPRN PRN PO 03/11/24 11:00 Trazodone HCl 100 mg HS PO 03/11/24 22:00 Atorvastatin Calcium 40 mg HS PO 03/11/24 22:00 Losartan Potassium 50 mg DAILY PO 03/12/24 10:00 UNV Patient Own Medication 1 tab DAILY PO 03/12/24 10:00 UNV Patient Own Medication 1 tab HS PRN PO 03/11/24 12:00 UNV Labetalol HCl 10 mg Q2HPRN PRN IV 03/11/24 12:00 UNV Laboratory Results Laboratory Tests 03/11/24 10:15 Chemistry Test 03/11/24 10:15 Calcium Level 10.0 mg/dL (8.7-10.4) Urinalysis Test 03/03/24 13:38 Urine Color Yellow (Yellow) Urine Clarity Clear (Clear) Urine pH 6.0 (5.0-9.0) Urine Specific [place] 1.022 (1.001-1.035) Urine Protein 1+ (Negative) H Urine Ketones 2+ (Negative) H Urine Blood Negative /uL (Negative) Urine Nitrite Negative (Negative) Urine Bilirubin Negative (Negative) Urine Urobilinogen 4 mg/dL (Negative) H Urine Leukocyte Esterase Negative /uL (Negative) Urine RBC 1 /hpf (0 - 4) Urine WBC 2 /hpf (0 - 5) Urine Squamous Epithelial Cells Few /hpf (<5) Urine Bacteria None seen /hpf (None Seen) Urine Hyaline Casts Few /lpf (0 - 2) Urine Mucus Few (None Seen) Urine Glucose Normal mg/dL (Normal) Microbiology Microbiology Date/Time Source Procedure Growth Status 03/07/24 11:00 Bronchial Washings Gram Stain - Final Complete 03/07/24 11:00 Bronchial Washings Respiratory Culture - Final Complete 03/04/24 00:25 Nose MRSA Screen - Final Complete 03/03/24 14:36 Blood Blood Culture - Final NO GROWTH AFTER 5 DAYS OF INCUBATION. Complete Labs and/or images reviewed: Labs reviewed by me, Image(s) reviewed by me Assessment/Plan Assessment/Plan Impression: Acute hypoxic/hypercapnia respiratory failure Acute Chronic obstructive pulmonary disease exacerbation Septic shock due to Influenza infection NSTEMI type 2 due to above Hypertensive urgency Emphysema Diabetes mellitus type 2 History of hypertension Hypokalemia Substance abuse with positive toxicology: Opiates and cocaine Plan: -events: Patient denies any symptoms. No to be hypertensive. -start home meds -continue current antibiotics -regular insulin sliding scale -bronchodilators -restart p.o. antihypertensives -pain management -physical therapy -wean sedation -PUD, DVT prophylaxis -repeat labs and chest x-ray in a.m. Total time spent with patient discussing and formulating plan of care: 35 minutes. This medical document was created using an electronic medical record system with [employer] dictation system. Although this document has been carefully reviewed, there may still be some phonetic and typographical errors. These areas are purely typographical due to imperfections of the software programs, and do not reflect any compromise in the patient's medical care. Plan discussed with: Patient, Other (RN) My Orders Orders - SIERRA MCCOLLUM NP Procedure Category Date Status Time Transfer Orders XFER 03/10/24 Transmitted 17:29 Hydrocodone-Acet PHA 03/11/24 In Process 5/325mg Tab ([place] 11:00 Trazodone Hcl PHA 03/11/24 In Process (Desyrel) 22:00 Atorvastatin (Lipitor) PHA 03/11/24 In Process 22:00 Mechanical Soft Diet DIET 03/11/24 Transmitted Lunch Pt Request For Service PT 03/11/24 Logged 11:17 Losartan Tablet PHA 03/12/24 Logged (Cozaar Tablet) 10:00 (Nf) Simvastatin PHA 03/12/24 Logged 10:00 (Nf) Trazodone Hcl PHA 03/11/24 Logged 12:00 Labetalol Hcl PHA 03/11/24 Logged (Labetalol Hcl) 12:00 Date of Service: Mar 11, 2024 Billing Provider: SIERRA MCCOLLUM NP Common Visit Codes: [id number] INP/OBS CARE(HIGH) SIERRA MCCOLLUM NP Mar 11, 2024 11:54
[2024-03-11] MEDS: NYSTATIN (MOUTH-THROAT) 500,000 UNITS/5 ML SUSP MT SCH (12:29)
[2024-03-11] MEDS: HYDROcodone-ACET 5/325MG TAB PO PRN (12:29)
[2024-03-11] MEDS: POTASSIUM EFFERVESENT TAB 25 MEQ PO ONE (12:30)
[2024-03-11] MEDS: LABETALOL HCL 20 MG/4 ML VL IV PRN (12:35)
[2024-03-11] MEDS: THROAT LOZENGES(CEPASTAT) MT PRN (12:38)
--- NOTE | 2024-03-11 20:52 | DVHPN2 ---
Progress Note - Dictate Date Seen: Mar 11, 2024 Medical Necessity Reason Pt with a Central, PICC or Fol: Yes The following are medically ne: Central Line, Phillips Catheter Reason for phillips catheter: Strict I&O Subjective Patient seen and examined at bedside. S/p extubation, on supplemental oxygen Overnight events reviewed. vital signs Vital Sign Date Time Temp Pulse Resp B/P (MAP) Pulse Ox O2 Delivery O2 Flow Rate FiO2 03/11/24 20:50 98.4 95 20 197/94 (128) 97 98.4 03/11/24 19:42 Nasal Cannula 2.0 03/11/24 19:42 28 Total Intake and Output 03/10/24 03/10/24 03/11/24 15:00 23:00 07:00 Intake Total 16.530 ml 200 ml 1100 ml Output Total 350 ml 550 ml Balance 16.530 ml -150 ml 550 ml medications Current Medications Medications Dose Ordered Sig/Aida Route Start Time Stop Time Status Last Admin Dose Admin Hydralazine HCl 10 mg Q6HP PRN IV 03/03/24 17:00 03/11/24 05:56 10 MG Diagnostic Test (Pha) 1 strip Q6HR 03/03/24 18:00 03/11/24 18:13 1 STRIP Insulin Human Regular Q6HR SC 03/03/24 18:00 03/10/24 17:37 2 UNITS Dextrose 50 ml UD PRN IV 03/03/24 17:00 Sodium Chloride 10 ml Q8HR IV 03/03/24 22:00 03/11/24 14:33 10 ML Ipratropium [place] 0.5 mg Q8HR NEB 03/05/24 02:00 03/11/24 13:38 0.5 MG Acetaminophen 650 mg Q6HP PRN PO 03/05/24 13:15 03/10/24 16:03 650 MG Famotidine 20 mg DAILY IV 03/07/24 10:00 03/11/24 08:34 20 MG Albuterol 2.5 mg Q8HR NEB 03/07/24 22:00 03/11/24 13:38 2.5 MG Acetylcysteine 200 mg Q8HR NEB 03/09/24 22:00 03/11/24 13:37 200 MG Morphine Sulfate 2 mg Q4HPRN PRN IV 03/10/24 09:15 03/11/24 18:16 2 MG Acetaminophen/ Hydrocodone Bitart 1 tab Q4HPRN PRN PO 03/11/24 11:00 03/11/24 12:29 1 TAB Losartan Potassium 50 mg DAILY PO 03/12/24 10:00 Atorvastatin Calcium 20 mg DAILY PO 03/12/24 10:00 Trazodone HCl 100 mg HS PRN PO 03/11/24 12:15 Labetalol HCl 10 mg Q2HPRN PRN IV 03/11/24 12:00 03/11/24 19:55 10 MG Throat Lozenges 1 justine Q2HP PRN MT 03/11/24 12:00 03/11/24 12:38 1 JUSTINE Nystatin 5 ml QID MT 03/11/24 12:00 03/11/24 18:10 5 ML objective Gen.: Patient lying in bed in no apparent distress. On supplemental oxygen. Head: Normocephalic, atraumatic. Eyes: EOMI/PERRLA. Ears: Normal hearing. Normal anatomy. Neck/trachea: Trachea midline, supple. Nose: Normal external anatomy. Mouth: Moist mucous membranes. Chest: Decreased air entry bilaterally. No wheezing or rhonchi. Cardiovascular: Positive S1, positive S2. Regular rate and rhythm. Abdomen: Positive bowel sounds in all 4 quadrants. Soft, non-tender, non- distended. : Deferred. Rectal: Deferred. Skin: Warm, dry. Intact. Extremities: 2+ radial pulses bilaterally. No lower extremity edema. Neuro: Awake, alert, oriented x3. No gross motor or sensory deficits. Cranial nerves II through XII intact. Gait not assessed. laboratory and microbiology Laboratory Tests 03/11/24 10:15 Test 03/11/24 10:15 Range/Units Serum Glucose 191 H 74-106 mg/dL Assessment/Plan Impression: Acute hypoxic respiratory failure secondary to influenza infection Acute hypercarbic respiratory failure, PaCO2 65.3 mmHg Influenza type B infection On mechanical ventilator Elevated troponin Anemia Hyperglycemia Hypertensive urgency Sepsis Events: Patient is s/p extubation Currently on supplemental oxygen, 2 LPM NC Taper O2 as tolerated Mechanical soft diet. Continue bronchodilators/Mucomyst CPT Continue antibiotics Tamiflu completed Nystatin Cepacol lozenges Pain control Avoid oversedation S/p bronchoscopy with RML BAL d/t increased ET tube secretions on 03/09. Labs and imaging reviewed. Rest of plan as noted below. Plan: Patient is s/p extubation Currently on supplemental oxygen, 2 LPM NC Taper O2 as tolerated Bronchodilators prn Pressors as necessary for hemodynamic support - currently off Titrate to keep MAP above 65 mmHg/SBP above 90 mmHg. IV steroids Tamiflu course for influenza B - completed Continue antibiotics. F/u cultures. Urinalysis: Leuk Esterase, nitrites negative F/u Urine tox Monitor renal function due to Acute kidney injury. Monitor electrolytes. Supplement as necessary. Nutritional support. Accucheks, ISS. GI proph: Pepcid BID DVT prophylaxis. Prognosis: Poor given multiple comorbidities. Rest of plan per hospitalist and other consultants. Thank you [facility] for allowing me to participate in this patient's care. Further recommendations will depend on patient's clinical course. Please do not hesitate to contact me if you have any questions or concerns. This medical document was created using an electronic medical record system with [employer] dictation system. Although this document has been carefully reviewed, there may still be some phonetic and typographical errors. These areas are purely typographical due to imperfections of the software programs, and do not reflect any compromise in the patient's medical care. Dietary Evaluation Review Comments: 1) Consider advancing pt diet when medically feasible to a CCHO 45g/Cardiac diet, modifier per YARD STOCKER recommendations 2) Continue current plan fo care Expected Outcomes/Goals: F/U in 2-3 days Plan discussed with: Patient, Other (RN Sera) SYLVIE RAMIREZ MD Mar 11, 2024 20:52
[2024-03-11] MEDS: traZODone HCL 50 MG TAB PO PRN (21:43)
[2024-03-11] MEDS ORDERED: ATORVASTATIN 20 MG TAB PO SCH (22:00)
[2024-03-11] MEDS ORDERED: traZODone HCL 50 MG TAB PO SCH (22:00)
[2024-03-12] VITALS (16 sets, daily range): BP systolic 125–170; BP diastolic 73–96; PULSE 64–108; RESP 16–22; TEMP 98–99; O2SAT 94–100
[2024-03-12] MEDS: LOSARTAN POTASSIUM 50 MG TAB PO SCH (09:35)
[2024-03-12] MEDS: ATORVASTATIN 20 MG TAB PO SCH (09:36)
--- NOTE | 2024-03-12 10:33 | DVHPN2 ---
Subjective Patient denies any symptoms. Reviewed: Care Plan, H&P, Labs, Medications Changes from previous H/P or p: No Changes General: Per HPI Eyes: No Pain, No Vision change, No Conjunctivae inflammation, No Eyelid inflammation, No Other, No Redness ENT: No Ear pain, No Ear discharge, No Nose pain, No Nose discharge, No Nose congestion, No Mouth pain, No Mouth swelling, No Throat pain, No Throat swelling, No Other Cardiovascular: No Chest Pain, No Palpitations, No Orthopnea, No Paroxysmal Noc. Dyspnea, No Edema, No Lt Headedness, No Other Respiratory: No Cough, No Dry, No Shortness of breath, No SOB with excertion, No Wheezing, No Hemoptysis, No Pleuritic Pain, No Sputum, No Other Gastrointestinal: No Nausea, No Vomiting, No Abdominal Pain, No Diarrhea, No Constipation, No Melena, No Hematochezia, No Other Genitourinary: No Dysuria, No Frequency, No Incontinence, No Hematuria, No Retention, No Other Musculoskeletal: No other, No neck pain, No shoulder pain, No arm pain, No back pain, No hand pain, No leg pain, No foot pain Skin: No Rash, No Lesions, No Jaundice, No Bruising, No Other Objective Vitals Vital Signs Date Time Temp Pulse Resp B/P (MAP) Pulse Ox O2 Delivery O2 Flow Rate FiO2 03/12/24 09:35 148/79 03/12/24 09:00 98.9 108 22 98 98.9 03/12/24 08:00 Nasal Cannula* 2 28 Intake/Output Intake and Output 03/12/24 07:00 Intake Total 750 ml Output Total 800 ml Balance -50 ml Intake Oral 750 ml Output Urine Total 600 ml Stool Total 200 ml # Bowel Movements 1 General Appearance: Alert, Oriented X3, Cooperative, No acute distress HEENT: Atraumatic, PERRLA Lungs: Clear to auscultation, Normal air movement, Other (Mechanical ventilation) Cardiovascular: Normal S1, Normal S2 Abdomen: Normal bowel sounds, Soft Genitourinary: No Apparent Abnormalities Musculoskeletal: Normal sensory function, Normal motor function Neuro: Normal gait, Normal speech Skin: Dry, Intact Psych/Mental Status: Mental status NL, Mood NL Medications Current Medications Medications Dose Ordered Sig/Aida Route Start Time Stop Time Status Last Admin Dose Admin Hydralazine HCl 10 mg Q6HP PRN IV 03/03/24 17:00 03/11/24 21:45 10 MG Diagnostic Test (Pha) 1 strip Q6HR 03/03/24 18:00 03/12/24 06:22 1 STRIP Insulin Human Regular Q6HR SC 03/03/24 18:00 03/12/24 06:24 2 UNITS Dextrose 50 ml UD PRN IV 03/03/24 17:00 Sodium Chloride 10 ml Q8HR IV 03/03/24 22:00 03/12/24 05:38 10 ML Ipratropium [place] 0.5 mg Q8HR NEB 03/05/24 02:00 03/12/24 07:20 0.5 MG Acetaminophen 650 mg Q6HP PRN PO 03/05/24 13:15 03/10/24 16:03 650 MG Famotidine 20 mg DAILY IV 03/07/24 10:00 03/11/24 08:34 20 MG Albuterol 2.5 mg Q8HR NEB 03/07/24 22:00 03/12/24 07:20 2.5 MG Acetylcysteine 200 mg Q8HR NEB 03/09/24 22:00 03/12/24 07:20 200 MG Morphine Sulfate 2 mg Q4HPRN PRN IV 03/10/24 09:15 03/12/24 05:51 2 MG Acetaminophen/ Hydrocodone Bitart 1 tab Q4HPRN PRN PO 03/11/24 11:00 03/12/24 09:35 1 TAB Losartan Potassium 50 mg DAILY PO 03/12/24 10:00 03/12/24 09:35 50 MG Atorvastatin Calcium 20 mg DAILY PO 03/12/24 10:00 03/12/24 09:36 20 MG Trazodone HCl 100 mg HS PRN PO 03/11/24 12:15 03/11/24 21:43 100 MG Labetalol HCl 10 mg Q2HPRN PRN IV 03/11/24 12:00 03/11/24 19:55 10 MG Throat Lozenges 1 justine Q2HP PRN MT 03/11/24 12:00 03/12/24 09:36 1 JUSTINE Nystatin 5 ml QID MT 03/11/24 12:00 03/12/24 05:38 5 ML Laboratory Results Laboratory Tests 03/11/24 10:15 Urinalysis Test 03/03/24 13:38 Urine Color Yellow (Yellow) Urine Clarity Clear (Clear) Urine pH 6.0 (5.0-9.0) Urine Specific [place] 1.022 (1.001-1.035) Urine Protein 1+ (Negative) H Urine Ketones 2+ (Negative) H Urine Blood Negative /uL (Negative) Urine Nitrite Negative (Negative) Urine Bilirubin Negative (Negative) Urine Urobilinogen 4 mg/dL (Negative) H Urine Leukocyte Esterase Negative /uL (Negative) Urine RBC 1 /hpf (0 - 4) Urine WBC 2 /hpf (0 - 5) Urine Squamous Epithelial Cells Few /hpf (<5) Urine Bacteria None seen /hpf (None Seen) Urine Hyaline Casts Few /lpf (0 - 2) Urine Mucus Few (None Seen) Urine Glucose Normal mg/dL (Normal) Microbiology Microbiology Date/Time Source Procedure Growth Status 03/09/24 22:30 Bronchial Washings Gram Stain - Final Resulted 03/09/24 22:30 Bronchial Washings Respiratory Culture - Preliminary Resulted 03/04/24 00:25 Nose MRSA Screen - Final Complete 03/03/24 14:36 Blood Blood Culture - Final NO GROWTH AFTER 5 DAYS OF INCUBATION. Complete Labs and/or images reviewed: Labs reviewed by me, Image(s) reviewed by me Assessment/Plan Assessment/Plan Impression: Acute hypoxic/hypercapnia respiratory failure Acute Chronic obstructive pulmonary disease exacerbation Septic shock due to Influenza infection NSTEMI type 2 due to above Hypertensive urgency Emphysema Diabetes mellitus type 2 History of hypertension Hypokalemia Substance abuse with positive toxicology: Opiates and cocaine Plan: -events: Events overnight. Blood pressure improved. -continue home meds -continue current antibiotics -regular insulin sliding scale -bronchodilators -restart p.o. antihypertensives -pain management -physical therapy -wean sedation -PUD, DVT prophylaxis -repeat labs and chest x-ray in a.m. -transferred to Medical/Surgical unit Total time spent with patient discussing and formulating plan of care: 35 minutes. This medical document was created using an electronic medical record system with [employer] system. Although this document has been carefully reviewed, there may still be some phonetic and typographical errors. These areas are purely typographical due to imperfections of the software programs, and do not reflect any compromise in the patient's medical care. Plan discussed with: Patient, Other (RN) My Orders Orders - SIERRA MCCOLLUM NP Procedure Category Date Status Time Hydrocodone-Acet PHA 03/11/24 In Process 5/325mg Tab ([place] 11:00 Mechanical Soft Diet DIET 03/11/24 Transmitted Lunch Pt Request For Service PT 03/11/24 Logged 11:17 Losartan Tablet PHA 03/12/24 In Process (Cozaar Tablet) 10:00 Atorvastatin (Lipitor) PHA 03/12/24 In Process 10:00 Trazodone Hcl PHA 03/11/24 In Process (Desyrel) 12:15 Labetalol Hcl PHA 03/11/24 In Process (Labetalol Hcl) 12:00 Throat Lozenges PHA 03/11/24 In Process (Cepastat Lozenges) 12:00 Nystatin PHA 03/11/24 In Process (Mouth-Throat) 12:00 Date of Service: Mar 12, 2024 Billing Provider: SIERRA MCCOLLUM NP Common Visit Codes: [id number] INP/OBS CARE(HIGH) SIERRA MCCOLLUM NP Mar 12, 2024 10:33
[2024-03-12] MEDS: POTASSIUM EFFERVESENT TAB 25 MEQ PO ONE (11:44)
--- NOTE | 2024-03-12 21:33 | DVHPN2 ---
Progress Note - Dictate Date Seen: Mar 12, 2024 Medical Necessity Reason Pt with a Central, PICC or Fol: Yes The following are medically ne: Central Line, Phillips Catheter Reason for phillips catheter: Strict I&O Subjective Patient seen and examined at bedside. Remains on supplemental oxygen Overnight events reviewed. vital signs Vital Sign Date Time Temp Pulse Resp B/P (MAP) Pulse Ox O2 Delivery O2 Flow Rate FiO2 03/12/24 21:00 98.6 82 18 167/81 (109) 99 98.6 03/12/24 08:00 Nasal Cannula* 2 28 Total Intake and Output 03/11/24 03/11/24 03/12/24 15:00 23:00 07:00 Intake Total 750 ml Output Total 200 ml 600 ml Balance -200 ml 150 ml medications Current Medications Medications Dose Ordered Sig/Aida Route Start Time Stop Time Status Last Admin Dose Admin Hydralazine HCl 10 mg Q6HP PRN IV 03/03/24 17:00 03/11/24 21:45 10 MG Diagnostic Test (Pha) 1 strip Q6HR 03/03/24 18:00 03/12/24 17:54 1 STRIP Insulin Human Regular Q6HR SC 03/03/24 18:00 03/12/24 17:55 2 UNITS Dextrose 50 ml UD PRN IV 03/03/24 17:00 Sodium Chloride 10 ml Q8HR IV 03/03/24 22:00 03/12/24 20:42 10 ML Ipratropium [place] 0.5 mg Q8HR NEB 03/05/24 02:00 03/12/24 15:04 0.5 MG Acetaminophen 650 mg Q6HP PRN PO 03/05/24 13:15 03/10/24 16:03 650 MG Famotidine 20 mg DAILY IV 03/07/24 10:00 03/12/24 11:43 20 MG Albuterol 2.5 mg Q8HR NEB 03/07/24 22:00 03/12/24 15:04 2.5 MG Acetylcysteine 200 mg Q8HR NEB 03/09/24 22:00 03/12/24 15:04 200 MG Morphine Sulfate 2 mg Q4HPRN PRN IV 03/10/24 09:15 03/12/24 16:47 2 MG Acetaminophen/ Hydrocodone Bitart 1 tab Q4HPRN PRN PO 03/11/24 11:00 03/12/24 09:35 1 TAB Losartan Potassium 50 mg DAILY PO 03/12/24 10:00 03/12/24 09:35 50 MG Atorvastatin Calcium 20 mg DAILY PO 03/12/24 10:00 03/12/24 09:36 20 MG Trazodone HCl 100 mg HS PRN PO 03/11/24 12:15 03/12/24 20:43 100 MG Labetalol HCl 10 mg Q2HPRN PRN IV 03/11/24 12:00 03/12/24 17:54 10 MG Throat Lozenges 1 justine Q2HP PRN MT 03/11/24 12:00 03/12/24 09:36 1 JUSTINE Nystatin 5 ml QID MT 03/11/24 12:00 03/12/24 20:41 5 ML objective Gen.: Patient lying in bed in no apparent distress. On supplemental oxygen. Head: Normocephalic, atraumatic. Eyes: EOMI/PERRLA. Ears: Normal hearing. Normal anatomy. Neck/trachea: Trachea midline, supple. Nose: Normal external anatomy. Mouth: Moist mucous membranes. Chest: Decreased air entry bilaterally. No wheezing or rhonchi. Cardiovascular: Positive S1, positive S2. Regular rate and rhythm. Abdomen: Positive bowel sounds in all 4 quadrants. Soft, non-tender, non- distended. : Deferred. Rectal: Deferred. Skin: Warm, dry. Intact. Extremities: 2+ radial pulses bilaterally. No lower extremity edema. Neuro: Awake, alert, oriented x3. No gross motor or sensory deficits. Cranial nerves II through XII intact. Gait not assessed. laboratory and microbiology Laboratory Tests 03/11/24 10:15 Test 03/11/24 10:15 Range/Units Serum Glucose 191 H 74-106 mg/dL Assessment/Plan Impression: Acute hypoxic respiratory failure secondary to influenza infection Acute hypercarbic respiratory failure, PaCO2 65.3 mmHg Influenza type B infection On mechanical ventilator Elevated troponin Anemia Hyperglycemia Hypertensive urgency Sepsis Events: Remains on supplemental oxygen, 3 LPM NC Taper O2 as tolerated Consider removal of left IJ central line. Incentive spirometry Continue bronchodilators/Mucomyst CPT Tamiflu completed Nystatin Cepacol lozenges Pain control Avoid oversedation S/p bronchoscopy with RML BAL d/t increased ET tube secretions on 03/09. Labs and imaging reviewed. Rest of plan as noted below. Plan: Patient is s/p extubation on 03/10. Currently on supplemental oxygen, 3 LPM NC Taper O2 as tolerated Bronchodilators prn Pressors as necessary for hemodynamic support - currently off Titrate to keep MAP above 65 mmHg/SBP above 90 mmHg. IV steroids Tamiflu course for influenza B - completed Continue antibiotics. F/u cultures. Urinalysis: Leuk Esterase, nitrites negative F/u Urine tox Monitor renal function due to Acute kidney injury. Monitor electrolytes. Supplement as necessary. Nutritional support. Accucheks, ISS. GI proph: Pepcid BID DVT prophylaxis. Prognosis: Poor given multiple comorbidities. Rest of plan per hospitalist and other consultants. Thank you DIRECTOR OF EMAIL MARKETING Mirian for allowing me to participate in this patient's care. Further recommendations will depend on patient's clinical course. Please do not hesitate to contact me if you have any questions or concerns. This medical document was created using an electronic medical record system with [employer] dictation system. Although this document has been carefully reviewed, there may still be some phonetic and typographical errors. These areas are purely typographical due to imperfections of the software programs, and do not reflect any compromise in the patient's medical care. Dietary Evaluation Review Comments: 1) Consider advancing pt diet when medically feasible to a CCHO 45g/Cardiac diet, modifier per RN HEMO DIALYSIS recommendations 2) Continue current plan fo care Expected Outcomes/Goals: F/U in 2-3 days Plan discussed with: Patient, Other (NAJMA Kothari) SYLVIE RAMIREZ MD Mar 12, 2024 21:33
[2024-03-13] VITALS (15 sets, daily range): BP systolic 115–156; BP diastolic 68–89; PULSE 60–95; RESP 16–20; TEMP 98.1–99.3; O2SAT 95–100
[2024-03-13 05:09] LABS: Basophils # (auto) 0.1 10 ^3/uL (0-0.2); Basophils % (auto) 0.9 % (0.0-2.0); Eosinophils # (auto) 0.6 10 ^3/uL (0-0.8); Eosinophils % (auto) 5.6 % (0.0-7.0); Hematocrit 34.3 % (36.0-46.0); Hemoglobin 11.1 g/dL (12.2-16.2); Lymphocytes # (auto) 2.4 10 ^3/uL (0.4-5.4); Lymphocytes % (auto) 21.6 % (10.0-50.0); Mean Corpuscular Hemoglobin 29.2 pg (28.0-32.0); Mean Corpuscular Hgb Conc. 32.5 g/dL (32.0-36.0); Mean Corpuscular Volume 89.9 fL (80.0-100.0); Monocytes # (auto) 1.6 10 ^3/uL (0-1.3); Monocytes % (auto) 14.2 % (0.0-12.0); Neutrophils # (auto) 6.5 10 ^3/uL (1.6-8.6); Neutrophils % (auto) 57.7 % (37.0-80.0); Nucleated Red Blood Cells % 0.1 %; Platelet Count (auto) 210 10^3/uL (140-450); Red Blood Cells 3.81 10^6/uL (4.0-5.20); Red Cell Distribution Width 16.3 % (11.8-14.3); White Blood Cell 11.2 10^3/uL (4.4-10.8)
[2024-03-13 05:20] LABS: Chloride 110 mmol/L (98-107)
[2024-03-13 05:21] LABS: Anion Gap 5 (5-15); Calcium 9.3 mg/dL (8.7-10.4); Carbon Dioxide 31 mmol/L (20-31)
[2024-03-13 05:26] LABS: BUN/Creatinine Ratio 10.7 (10.0-20.0); Blood Urea Nitrogen 6 mg/dL (9-23); Glucose 75 mg/dL (74-106)
[2024-03-13 05:27] LABS: Sodium 146 mmol/L (136-145)
--- NOTE | 2024-03-13 06:21 | DVH ---
CHEST RADIOGRAPH Indication: pna Technique: Single frontal view of the chest was obtained Comparison: XY CHEST PORTABLE on DOS: 03/10/24 FINDINGS: Lines and Tubes: There is a left central venous catheter with its tip terminating in the superior ian a cava. ACDF hardware noted. Lungs: Bilateral interstitial prominence similar to prior study. No focal consolidation. Pleura: No effusion. No pneumothorax. Cardiomediastinal contours: Unremarkable Bones: No acute osseous abnormality. IMPRESSION: 1. Bilateral interstitial prominence without focal consolidation similar to prior study.
--- NOTE | 2024-03-13 15:45 | DVHPN2 ---
Subjective Patient denies any symptoms. Reviewed: Care Plan, H&P, Labs, Medications Changes from previous H/P or p: No Changes General: Per HPI Eyes: No Pain, No Vision change, No Conjunctivae inflammation, No Eyelid inflammation, No Other, No Redness ENT: No Ear pain, No Ear discharge, No Nose pain, No Nose discharge, No Nose congestion, No Mouth pain, No Mouth swelling, No Throat pain, No Throat swelling, No Other Cardiovascular: No Chest Pain, No Palpitations, No Orthopnea, No Paroxysmal Noc. Dyspnea, No Edema, No Lt Headedness, No Other Respiratory: No Cough, No Dry, No Shortness of breath, No SOB with excertion, No Wheezing, No Hemoptysis, No Pleuritic Pain, No Sputum, No Other Gastrointestinal: No Nausea, No Vomiting, No Abdominal Pain, No Diarrhea, No Constipation, No Melena, No Hematochezia, No Other Genitourinary: No Dysuria, No Frequency, No Incontinence, No Hematuria, No Retention, No Other Musculoskeletal: No other, No neck pain, No shoulder pain, No arm pain, No back pain, No hand pain, No leg pain, No foot pain Skin: No Rash, No Lesions, No Jaundice, No Bruising, No Other Objective Vitals Vital Signs Date Time Temp Pulse Resp B/P (MAP) Pulse Ox O2 Delivery O2 Flow Rate FiO2 03/13/24 15:39 86 18 149/83 03/13/24 14:57 100 03/13/24 14:51 Nasal Cannula 2.0 03/13/24 14:51 28 03/13/24 13:02 99.2 99.2 Intake/Output Intake and Output 03/13/24 07:00 Intake Total 1040 ml Balance 1040 ml Intake Oral 1040 ml # Voids 5 # Bowel Movements 1 General Appearance: Alert, Oriented X3, Cooperative, No acute distress HEENT: Atraumatic, PERRLA Lungs: Clear to auscultation, Normal air movement, Other (Mechanical ventilation) Cardiovascular: Normal S1, Normal S2 Abdomen: Normal bowel sounds, Soft Genitourinary: No Apparent Abnormalities Musculoskeletal: Normal sensory function, Normal motor function Neuro: Normal gait, Normal speech Skin: Dry, Intact Psych/Mental Status: Mental status NL, Mood NL Medications Current Medications Medications Dose Ordered Sig/Aida Route Start Time Stop Time Status Last Admin Dose Admin Hydralazine HCl 10 mg Q6HP PRN IV 03/03/24 17:00 03/11/24 21:45 10 MG Diagnostic Test (Pha) 1 strip Q6HR 03/03/24 18:00 03/13/24 11:02 1 STRIP Insulin Human Regular Q6HR SC 03/03/24 18:00 03/13/24 11:13 2 UNITS Dextrose 50 ml UD PRN IV 03/03/24 17:00 Sodium Chloride 10 ml Q8HR IV 03/03/24 22:00 03/13/24 10:49 10 ML Ipratropium [place] 0.5 mg Q8HR NEB 03/05/24 02:00 03/13/24 14:50 0.5 MG Acetaminophen 650 mg Q6HP PRN PO 03/05/24 13:15 03/10/24 16:03 650 MG Famotidine 20 mg DAILY IV 03/07/24 10:00 03/13/24 09:27 20 MG Albuterol 2.5 mg Q8HR NEB 03/07/24 22:00 03/13/24 14:50 2.5 MG Acetylcysteine 200 mg Q8HR NEB 03/09/24 22:00 03/13/24 14:50 200 MG Morphine Sulfate 2 mg Q4HPRN PRN IV 03/10/24 09:15 03/13/24 15:39 2 MG Acetaminophen/ Hydrocodone Bitart 1 tab Q4HPRN PRN PO 03/11/24 11:00 03/12/24 09:35 1 TAB Losartan Potassium 50 mg DAILY PO 03/12/24 10:00 03/13/24 09:27 50 MG Atorvastatin Calcium 20 mg DAILY PO 03/12/24 10:00 03/13/24 09:27 20 MG Trazodone HCl 100 mg HS PRN PO 03/11/24 12:15 03/12/24 20:43 100 MG Labetalol HCl 10 mg Q2HPRN PRN IV 03/11/24 12:00 03/12/24 17:54 10 MG Throat Lozenges 1 justine Q2HP PRN MT 03/11/24 12:00 03/12/24 09:36 1 JUSTINE Nystatin 5 ml QID MT 03/11/24 12:00 03/13/24 10:57 5 ML Amoxicillin/ Clavulanate Potassium 875 mg Q12HR PO 03/13/24 22:00 Laboratory Results Laboratory Tests 03/13/24 04:46 Chemistry Test 03/13/24 04:46 Calcium Level 9.3 mg/dL (8.7-10.4) Urinalysis Test 03/03/24 13:38 Urine Color Yellow (Yellow) Urine Clarity Clear (Clear) Urine pH 6.0 (5.0-9.0) Urine Specific [place] 1.022 (1.001-1.035) Urine Protein 1+ (Negative) H Urine Ketones 2+ (Negative) H Urine Blood Negative /uL (Negative) Urine Nitrite Negative (Negative) Urine Bilirubin Negative (Negative) Urine Urobilinogen 4 mg/dL (Negative) H Urine Leukocyte Esterase Negative /uL (Negative) Urine RBC 1 /hpf (0 - 4) Urine WBC 2 /hpf (0 - 5) Urine Squamous Epithelial Cells Few /hpf (<5) Urine Bacteria None seen /hpf (None Seen) Urine Hyaline Casts Few /lpf (0 - 2) Urine Mucus Few (None Seen) Urine Glucose Normal mg/dL (Normal) Microbiology Microbiology Date/Time Source Procedure Growth Status 03/09/24 22:30 Bronchial Washings Gram Stain - Final Complete 03/09/24 22:30 Respiratory Culture - Final Staphylococcus lugdunensis Complete 03/04/24 00:25 Nose MRSA Screen - Final Complete 03/03/24 14:36 Blood Blood Culture - Final NO GROWTH AFTER 5 DAYS OF INCUBATION. Complete Labs and/or images reviewed: Labs reviewed by me, Image(s) reviewed by me Assessment/Plan Assessment/Plan Impression: Acute hypoxic/hypercapnia respiratory failure Acute Chronic obstructive pulmonary disease exacerbation Septic shock due to Influenza infection NSTEMI type 2 due to above Hypertensive urgency Emphysema Diabetes mellitus type 2 History of hypertension Hypokalemia Substance abuse with positive toxicology: Opiates and cocaine Plan: -events: Events overnight. Patient ambulating about 20 ft. O2 supplementation at 2 L with patient stating that respiratory status improved. -continue home meds -deescalate antibiotics to Augmentin 875 mg p.o. b.i.d. -regular insulin sliding scale -bronchodilators -restart p.o. antihypertensives -pain management -physical therapy -wean sedation -PUD, DVT prophylaxis -repeat labs and chest x-ray in a.m. -assess for DC in a.m. Total time spent with patient discussing and formulating plan of care: 35 minutes. This medical document was created using an electronic medical record system with [employer] dictation system. Although this document has been carefully reviewed, there may still be some phonetic and typographical errors. These areas are purely typographical due to imperfections of the software programs, and do not reflect any compromise in the patient's medical care. Plan discussed with: Patient, Other (RN) My Orders Orders - SIERRA MCCOLLUM NP Procedure Category Date Status Time Pt Request For Service PT 03/13/24 Logged 07:48 Amoxicillin/Clavulanate PHA 03/13/24 In Process Tablet (Augmenti 22:00 Date of Service: Mar 13, 2024 Billing Provider: SIERRA MCCOLLUM NP Common Visit Codes: [id number] INP/OBS CARE(HIGH) SIERRA MCCOLLUM NP Mar 13, 2024 15:45
--- NOTE | 2024-03-13 21:10 | DVHPN2 ---
Progress Note - Dictate Date Seen: Mar 13, 2024 Medical Necessity Reason Pt with a Central, PICC or Fol: Yes The following are medically ne: Central Line, Phillips Catheter Reason for phillips catheter: Strict I&O Subjective Patient seen and examined at bedside. Remains on supplemental oxygen Overnight events reviewed. vital signs Vital Sign Date Time Temp Pulse Resp B/P (MAP) Pulse Ox O2 Delivery O2 Flow Rate FiO2 03/13/24 20:31 90 18 135/85 03/13/24 20:00 95 Nasal Cannula* 2 28 03/13/24 16:41 98.5 98.5 Total Intake and Output 03/12/24 03/12/24 03/13/24 15:00 23:00 07:00 Intake Total 740 ml 300 ml Balance 740 ml 300 ml medications Current Medications Medications Dose Ordered Sig/Aida Route Start Time Stop Time Status Last Admin Dose Admin Hydralazine HCl 10 mg Q6HP PRN IV 03/03/24 17:00 03/11/24 21:45 10 MG Diagnostic Test (Pha) 1 strip Q6HR 03/03/24 18:00 03/13/24 17:10 1 STRIP Insulin Human Regular Q6HR SC 03/03/24 18:00 03/13/24 17:09 2 UNITS Dextrose 50 ml UD PRN IV 03/03/24 17:00 Sodium Chloride 10 ml Q8HR IV 03/03/24 22:00 03/13/24 10:49 10 ML Ipratropium [place] 0.5 mg Q8HR NEB 03/05/24 02:00 03/13/24 18:06 0.5 MG Acetaminophen 650 mg Q6HP PRN PO 03/05/24 13:15 03/10/24 16:03 650 MG Famotidine 20 mg DAILY IV 03/07/24 10:00 03/13/24 09:27 20 MG Albuterol 2.5 mg Q8HR NEB 03/07/24 22:00 03/13/24 18:06 2.5 MG Acetylcysteine 200 mg Q8HR NEB 03/09/24 22:00 03/13/24 18:06 200 MG Morphine Sulfate 2 mg Q4HPRN PRN IV 03/10/24 09:15 03/13/24 20:31 2 MG Acetaminophen/ Hydrocodone Bitart 1 tab Q4HPRN PRN PO 03/11/24 11:00 03/13/24 17:13 1 TAB Losartan Potassium 50 mg DAILY PO 03/12/24 10:00 03/13/24 09:27 50 MG Atorvastatin Calcium 20 mg DAILY PO 03/12/24 10:00 03/13/24 09:27 20 MG Trazodone HCl 100 mg HS PRN PO 03/11/24 12:15 03/12/24 20:43 100 MG Labetalol HCl 10 mg Q2HPRN PRN IV 03/11/24 12:00 03/12/24 17:54 10 MG Throat Lozenges 1 justine Q2HP PRN MT 03/11/24 12:00 03/12/24 09:36 1 JUSTINE Nystatin 5 ml QID MT 03/11/24 12:00 03/13/24 17:09 5 ML Amoxicillin/ Clavulanate Potassium 875 mg Q12HR PO 03/13/24 22:00 objective Gen.: Patient lying in bed in no apparent distress. On supplemental oxygen. Head: Normocephalic, atraumatic. Eyes: EOMI/PERRLA. Ears: Normal hearing. Normal anatomy. Neck/trachea: Trachea midline, supple. Nose: Normal external anatomy. Mouth: Moist mucous membranes. Chest: Decreased air entry bilaterally. No wheezing or rhonchi. Cardiovascular: Positive S1, positive S2. Regular rate and rhythm. Abdomen: Positive bowel sounds in all 4 quadrants. Soft, non-tender, non- distended. : Deferred. Rectal: Deferred. Skin: Warm, dry. Intact. Extremities: 2+ radial pulses bilaterally. No lower extremity edema. Neuro: Awake, alert, oriented x3. No gross motor or sensory deficits. Cranial nerves II through XII intact. Gait not assessed. laboratory and microbiology Laboratory Tests 03/13/24 04:46 Test 03/13/24 04:46 Range/Units Serum Glucose 75 74-106 mg/dL Assessment/Plan Impression: Acute hypoxic respiratory failure secondary to influenza infection Acute hypercarbic respiratory failure, PaCO2 65.3 mmHg Influenza type B infection On mechanical ventilator Elevated troponin Anemia Hyperglycemia Hypertensive urgency Sepsis Events: Remains on supplemental oxygen, 3 LPM NC Taper O2 as tolerated Continue antibiotics - amoxicillin PO Incentive spirometry Continue bronchodilators/Mucomyst CPT Nystatin Pain control Avoid oversedation Physical therapy Disposition per hospitalist. Labs and imaging reviewed. Rest of plan as noted below. Plan: Patient is s/p extubation on 03/10. Currently on supplemental oxygen, 3 LPM NC Taper O2 as tolerated S/p bronchoscopy with RML BAL d/t increased ET tube secretions on 03/09. Bronchodilators PRN Pressors as necessary for hemodynamic support - currently off Titrate to keep MAP above 65 mmHg/SBP above 90 mmHg. IV steroids Tamiflu course for influenza B - completed Continue antibiotics. F/u cultures. Urinalysis: Leuk Esterase, nitrites negative F/u Urine tox Monitor renal function due to Acute kidney injury. Monitor electrolytes. Supplement as necessary. Nutritional support. Accucheks, ISS. GI proph: Pepcid BID DVT prophylaxis. Prognosis: Poor given multiple comorbidities. Rest of plan per hospitalist and other consultants. Thank you ASHLEE Vela for allowing me to participate in this patient's care. Further recommendations will depend on patient's clinical course. Please do not hesitate to contact me if you have any questions or concerns. This medical document was created using an electronic medical record system with [employer] dictation system. Although this document has been carefully reviewed, there may still be some phonetic and typographical errors. These areas are purely typographical due to imperfections of the software programs, and do not reflect any compromise in the patient's medical care. Dietary Evaluation Review Comments: 1) Consider advancing pt diet when medically feasible to a CCHO 45g/Cardiac diet, modifier per HUMAN [employer]OURCES OFFICE MANAGER recommendations 2) Continue current plan fo care Expected Outcomes/Goals: F/U in 2-3 days Plan discussed with: Patient, Other (RN Ty) SYLVIE RAMIREZ MD Mar 13, 2024 21:09
[2024-03-13] MEDS: AMOXICILLIN/CLAVUL 875 MG TAB PO SCH (23:03)
[2024-03-14] VITALS (16 sets, daily range): BP systolic 114–136; BP diastolic 60–79; PULSE 62–109; RESP 17–20; TEMP 98.2–98.6; O2SAT 95–100
--- NOTE | 2024-03-14 10:21 | DVHPN2 ---
Subjective Patient denies any symptoms. Reviewed: Care Plan, H&P, Labs, Medications Changes from previous H/P or p: No Changes General: Per HPI Eyes: No Pain, No Vision change, No Conjunctivae inflammation, No Eyelid inflammation, No Other, No Redness ENT: No Ear pain, No Ear discharge, No Nose pain, No Nose discharge, No Nose congestion, No Mouth pain, No Mouth swelling, No Throat pain, No Throat swelling, No Other Cardiovascular: No Chest Pain, No Palpitations, No Orthopnea, No Paroxysmal Noc. Dyspnea, No Edema, No Lt Headedness, No Other Respiratory: No Cough, No Dry, No Shortness of breath, No SOB with excertion, No Wheezing, No Hemoptysis, No Pleuritic Pain, No Sputum, No Other Gastrointestinal: No Nausea, No Vomiting, No Abdominal Pain, No Diarrhea, No Constipation, No Melena, No Hematochezia, No Other Genitourinary: No Dysuria, No Frequency, No Incontinence, No Hematuria, No Retention, No Other Musculoskeletal: No other, No neck pain, No shoulder pain, No arm pain, No back pain, No hand pain, No leg pain, No foot pain Skin: No Rash, No Lesions, No Jaundice, No Bruising, No Other Objective Vitals Vital Signs Date Time Temp Pulse Resp B/P (MAP) Pulse Ox O2 Delivery O2 Flow Rate FiO2 03/14/24 08:50 98.3 93 17 124/72 (89) 99 98.3 03/14/24 08:00 Nasal Cannula* 2 28 Intake/Output Intake and Output 03/14/24 07:00 Intake Total 200 ml Output Total 500 ml Balance -300 ml Intake Oral 200 ml Output Urine Total 500 ml # Voids 7 General Appearance: Alert, Oriented X3, Cooperative, No acute distress HEENT: Atraumatic, PERRLA Lungs: Clear to auscultation, Normal air movement, Other (Mechanical ventilation) Cardiovascular: Normal S1, Normal S2 Abdomen: Normal bowel sounds, Soft Genitourinary: No Apparent Abnormalities Musculoskeletal: Normal sensory function, Normal motor function Neuro: Normal gait, Normal speech Skin: Dry, Intact Psych/Mental Status: Mental status NL, Mood NL Medications Current Medications Medications Dose Ordered Sig/Aida Route Start Time Stop Time Status Last Admin Dose Admin Hydralazine HCl 10 mg Q6HP PRN IV 03/03/24 17:00 03/11/24 21:45 10 MG Diagnostic Test (Pha) 1 strip Q6HR 03/03/24 18:00 03/14/24 06:00 1 STRIP Insulin Human Regular Q6HR SC 03/03/24 18:00 03/13/24 17:09 2 UNITS Dextrose 50 ml UD PRN IV 03/03/24 17:00 Sodium Chloride 10 ml Q8HR IV 03/03/24 22:00 03/14/24 05:56 10 ML Ipratropium [place] 0.5 mg Q8HR NEB 03/05/24 02:00 03/14/24 06:15 0.5 MG Acetaminophen 650 mg Q6HP PRN PO 03/05/24 13:15 03/10/24 16:03 650 MG Famotidine 20 mg DAILY IV 03/07/24 10:00 03/14/24 07:53 20 MG Albuterol 2.5 mg Q8HR NEB 03/07/24 22:00 03/14/24 06:15 2.5 MG Acetylcysteine 200 mg Q8HR NEB 03/09/24 22:00 03/14/24 06:15 200 MG Morphine Sulfate 2 mg Q4HPRN PRN IV 03/10/24 09:15 03/14/24 06:01 2 MG Acetaminophen/ Hydrocodone Bitart 1 tab Q4HPRN PRN PO 03/11/24 11:00 03/14/24 09:06 1 TAB Losartan Potassium 50 mg DAILY PO 03/12/24 10:00 03/14/24 07:54 50 MG Atorvastatin Calcium 20 mg DAILY PO 03/12/24 10:00 03/14/24 07:54 20 MG Trazodone HCl 100 mg HS PRN PO 03/11/24 12:15 03/13/24 21:46 100 MG Labetalol HCl 10 mg Q2HPRN PRN IV 03/11/24 12:00 03/12/24 17:54 10 MG Throat Lozenges 1 justine Q2HP PRN MT 03/11/24 12:00 03/12/24 09:36 1 JUSTINE Nystatin 5 ml QID MT 03/11/24 12:00 03/14/24 05:56 5 ML Amoxicillin/ Clavulanate Potassium 875 mg Q12HR PO 03/13/24 22:00 03/14/24 07:53 875 MG Laboratory Results Laboratory Tests 03/13/24 04:46 Urinalysis Test 03/03/24 13:38 Urine Color Yellow (Yellow) Urine Clarity Clear (Clear) Urine pH 6.0 (5.0-9.0) Urine Specific [place] 1.022 (1.001-1.035) Urine Protein 1+ (Negative) H Urine Ketones 2+ (Negative) H Urine Blood Negative /uL (Negative) Urine Nitrite Negative (Negative) Urine Bilirubin Negative (Negative) Urine Urobilinogen 4 mg/dL (Negative) H Urine Leukocyte Esterase Negative /uL (Negative) Urine RBC 1 /hpf (0 - 4) Urine WBC 2 /hpf (0 - 5) Urine Squamous Epithelial Cells Few /hpf (<5) Urine Bacteria None seen /hpf (None Seen) Urine Hyaline Casts Few /lpf (0 - 2) Urine Mucus Few (None Seen) Urine Glucose Normal mg/dL (Normal) Microbiology Microbiology Date/Time Source Procedure Growth Status 03/09/24 22:30 Bronchial Washings Gram Stain - Final Complete 03/09/24 22:30 Respiratory Culture - Final Staphylococcus lugdunensis Complete 03/04/24 00:25 Nose MRSA Screen - Final Complete 03/03/24 14:36 Blood Blood Culture - Final NO GROWTH AFTER 5 DAYS OF INCUBATION. Complete Labs and/or images reviewed: Labs reviewed by me, Image(s) reviewed by me Assessment/Plan Assessment/Plan Impression: Acute hypoxic/hypercapnia respiratory failure Acute Chronic obstructive pulmonary disease exacerbation Septic shock due to Influenza infection NSTEMI type 2 due to above Hypertensive urgency Emphysema Diabetes mellitus type 2 History of hypertension Hypokalemia Substance abuse with positive toxicology: Opiates and cocaine Plan: -events: Events overnight. Patient was saturation is 98% on 2 L via nasal cannula. Patient states that she wears 2 L of oxygen at home every day. Patient states that she does not want to go to a nursing home facility for rehabilitation. She was open to the idea for home health services. Social service consultation placed -continue home meds -deescalate antibiotics to Augmentin 875 mg p.o. b.i.d. -regular insulin sliding scale -bronchodilators -p.o. antihypertensives -pain management -physical therapy -PUD, DVT prophylaxis -assess for DC in a.m. Total time spent with patient discussing and formulating plan of care: 35 minutes. Total time spent with patient and family regarding advance care plannin minutes. This medical document was created using an electronic medical record system with [employer] dictation system. Although this document has been carefully reviewed, there may still be some phonetic and typographical errors. These areas are purely typographical due to imperfections of the software programs, and do not reflect any compromise in the patient's medical care. Plan discussed with: Patient, Other (RN) My Orders Orders - SIERRA MCCOLLUM NP Procedure Category Date Status Time Amoxicillin/Clavulanate PHA 03/13/24 In Process Tablet (Augmenti 22:00 Date of Service: Mar 14, 2024 Billing Provider: SIERRA MCCOLLUM NP Common Visit Codes: [id number] INP/OBS CARE(HIGH) Secondary Visit Codes: [id number] CARE PLAN 30 MINUTES SIERRA MCCOLLUM NP Mar 14, 2024 10:21
--- NOTE | 2024-03-14 21:03 | DVHPN2 ---
Progress Note - Dictate Date Seen: Mar 14, 2024 Medical Necessity Reason Pt with a Central, PICC or Fol: Yes The following are medically ne: Central Line, Phillips Catheter Reason for phillips catheter: Strict I&O Subjective Patient seen and examined at bedside. Remains on supplemental oxygen Overnight events reviewed. vital signs Vital Sign Date Time Temp Pulse Resp B/P (MAP) Pulse Ox O2 Delivery O2 Flow Rate FiO2 03/14/24 18:20 88 123/79 (94) 03/14/24 17:15 98.2 18 96 98.2 03/14/24 08:00 Nasal Cannula* 2 28 Total Intake and Output 03/13/24 03/13/24 03/14/24 15:00 23:00 07:00 Intake Total 200 ml Output Total 500 ml Balance -500 ml 200 ml medications Current Medications Medications Dose Ordered Sig/Aida Route Start Time Stop Time Status Last Admin Dose Admin Hydralazine HCl 10 mg Q6HP PRN IV 03/03/24 17:00 03/11/24 21:45 10 MG Diagnostic Test (Pha) 1 strip Q6HR 03/03/24 18:00 03/14/24 16:41 1 STRIP Insulin Human Regular Q6HR SC 03/03/24 18:00 03/14/24 11:39 3 UNITS Dextrose 50 ml UD PRN IV 03/03/24 17:00 Sodium Chloride 10 ml Q8HR IV 03/03/24 22:00 03/14/24 12:09 10 ML Ipratropium [place] 0.5 mg Q8HR NEB 03/05/24 02:00 03/14/24 15:14 0.5 MG Acetaminophen 650 mg Q6HP PRN PO 03/05/24 13:15 03/10/24 16:03 650 MG Famotidine 20 mg DAILY IV 03/07/24 10:00 03/14/24 07:53 20 MG Albuterol 2.5 mg Q8HR NEB 03/07/24 22:00 03/14/24 15:14 2.5 MG Acetylcysteine 200 mg Q8HR NEB 03/09/24 22:00 03/14/24 06:15 200 MG Morphine Sulfate 2 mg Q4HPRN PRN IV 03/10/24 09:15 03/14/24 16:36 2 MG Acetaminophen/ Hydrocodone Bitart 1 tab Q4HPRN PRN PO 03/11/24 11:00 03/14/24 19:37 1 TAB Losartan Potassium 50 mg DAILY PO 03/12/24 10:00 03/14/24 07:54 50 MG Atorvastatin Calcium 20 mg DAILY PO 03/12/24 10:00 03/14/24 07:54 20 MG Trazodone HCl 100 mg HS PRN PO 03/11/24 12:15 03/13/24 21:46 100 MG Labetalol HCl 10 mg Q2HPRN PRN IV 03/11/24 12:00 03/12/24 17:54 10 MG Throat Lozenges 1 justine Q2HP PRN MT 03/11/24 12:00 03/14/24 18:19 1 JUSTINE Nystatin 5 ml QID MT 03/11/24 12:00 03/14/24 16:35 5 ML Amoxicillin/ Clavulanate Potassium 875 mg Q12HR PO 03/13/24 22:00 03/14/24 07:53 875 MG objective Gen.: Patient lying in bed in no apparent distress. On supplemental oxygen. Head: Normocephalic, atraumatic. Eyes: EOMI/PERRLA. Ears: Normal hearing. Normal anatomy. Neck/trachea: Trachea midline, supple. Nose: Normal external anatomy. Mouth: Moist mucous membranes. Chest: Decreased air entry bilaterally. No wheezing or rhonchi. Cardiovascular: Positive S1, positive S2. Regular rate and rhythm. Abdomen: Positive bowel sounds in all 4 quadrants. Soft, non-tender, non- distended. : Deferred. Rectal: Deferred. Skin: Warm, dry. Intact. Extremities: 2+ radial pulses bilaterally. No lower extremity edema. Neuro: Awake, alert, oriented x3. No gross motor or sensory deficits. Cranial nerves II through XII intact. Gait not assessed. laboratory and microbiology Laboratory Tests 03/13/24 04:46 Test 03/13/24 04:46 Range/Units Serum Glucose 75 74-106 mg/dL Assessment/Plan Impression: Acute hypoxic respiratory failure secondary to influenza infection Acute hypercarbic respiratory failure, PaCO2 65.3 mmHg Influenza type B infection On mechanical ventilator Elevated troponin Anemia Hyperglycemia Hypertensive urgency Sepsis Events: Remains on supplemental oxygen, 2 LPM NC Taper O2 as tolerated Continue antibiotics - amoxicillin PO Incentive spirometry WBC trending down. Continue bronchodilators/Mucomyst CPT Continue Nystatin for thrush Cepacol lozenges for sore throat. Pain control Avoid oversedation Accu-Cheks, ISS. Physical therapy GI prophylaxis w/ Pepcid. Disposition per hospitalist. Labs and imaging reviewed. Rest of plan as noted below. Plan: Patient is s/p extubation on 03/10. Currently on supplemental oxygen, 2 LPM NC Taper O2 as tolerated S/p bronchoscopy with RML BAL d/t increased ET tube secretions on 03/09. Bronchodilators PRN Pressors as necessary for hemodynamic support - currently off Titrate to keep MAP above 65 mmHg/SBP above 90 mmHg. IV steroids Tamiflu course for influenza B - completed Continue antibiotics. F/u cultures. Urinalysis: Leuk Esterase, nitrites negative F/u Urine tox Monitor renal function due to Acute kidney injury. Monitor electrolytes. Supplement as necessary. Nutritional support. Accuchekcory, ISS. GI proph: Pepcid BID DVT prophylaxis. Prognosis: Poor given multiple comorbidities. Rest of plan per hospitalist and other consultants. Thank you ASHLEE Vela for allowing me to participate in this patient's care. Further recommendations will depend on patient's clinical course. Please do not hesitate to contact me if you have any questions or concerns. This medical document was created using an electronic medical record system with [employer] dictation system. Although this document has been carefully reviewed, there may still be some phonetic and typographical errors. These areas are purely typographical due to imperfections of the software programs, and do not reflect any compromise in the patient's medical care. Dietary Evaluation Review Comments: 1) Consider advancing pt diet when medically feasible to a CCHO 45g/Cardiac diet, modifier per [employer] recommendations 2) Continue current plan fo care Expected Outcomes/Goals: F/U in 2-3 days Plan discussed with: Patient, Other (NAJMA Guzman) SYLVIE RAMIREZ MD Mar 14, 2024 21:03
[2024-03-15] VITALS (12 sets, daily range): BP systolic 94–155; BP diastolic 54–72; PULSE 87–98; RESP 16–19; TEMP 97.7–98.9; O2SAT 95–100
--- NOTE | 2024-03-15 13:53 | DVHPN2 ---
Subjective The patient is seen and examined at bedside. No change overnight. Still shortness for breath. Reviewed: Care Plan, H&P, Labs, Medications Changes from previous H/P or p: No Changes General: Per HPI Eyes: No Pain, No Vision change, No Conjunctivae inflammation, No Eyelid inflammation, No Other, No Redness ENT: No Ear pain, No Ear discharge, No Nose pain, No Nose discharge, No Nose congestion, No Mouth pain, No Mouth swelling, No Throat pain, No Throat swelling, No Other Cardiovascular: No Chest Pain, No Palpitations, No Orthopnea, No Paroxysmal Noc. Dyspnea, No Edema, No Lt Headedness, No Other Respiratory: No Cough, No Dry, No Shortness of breath, No SOB with excertion, No Wheezing, No Hemoptysis, No Pleuritic Pain, No Sputum, No Other Gastrointestinal: No Nausea, No Vomiting, No Abdominal Pain, No Diarrhea, No Constipation, No Melena, No Hematochezia, No Other Genitourinary: No Dysuria, No Frequency, No Incontinence, No Hematuria, No Retention, No Other Musculoskeletal: No other, No neck pain, No shoulder pain, No arm pain, No back pain, No hand pain, No leg pain, No foot pain Skin: No Rash, No Lesions, No Jaundice, No Bruising, No Other Objective Vitals Vital Signs Date Time Temp Pulse Resp B/P (MAP) Pulse Ox O2 Delivery O2 Flow Rate FiO2 03/15/24 13:36 90 16 100 03/15/24 13:26 Nasal Cannula* 2 28 03/15/24 13:00 98.4 110/66 (81) 98.4 Intake/Output Intake and Output 03/15/24 07:00 Intake Total 200 ml Balance 200 ml Intake Oral 200 ml # Voids 5 General Appearance: Alert, Oriented X3, Cooperative, No acute distress HEENT: Atraumatic, PERRLA Lungs: Clear to auscultation, Normal air movement, Other (Mechanical ventilation) Cardiovascular: Normal S1, Normal S2 Abdomen: Normal bowel sounds, Soft Genitourinary: No Apparent Abnormalities Musculoskeletal: Normal sensory function, Normal motor function Neuro: Normal gait, Normal speech Skin: Dry, Intact Psych/Mental Status: Mental status NL, Mood NL Medications Current Medications Medications Dose Ordered Sig/Aida Route Start Time Stop Time Status Last Admin Dose Admin Hydralazine HCl 10 mg Q6HP PRN IV 03/03/24 17:00 03/11/24 21:45 10 MG Diagnostic Test (Pha) 1 strip Q6HR 03/03/24 18:00 03/15/24 12:00 1 STRIP Insulin Human Regular Q6HR SC 03/03/24 18:00 03/14/24 11:39 3 UNITS Dextrose 50 ml UD PRN IV 03/03/24 17:00 Sodium Chloride 10 ml Q8HR IV 03/03/24 22:00 03/15/24 13:41 10 ML Ipratropium [place] 0.5 mg Q8HR NEB 03/05/24 02:00 03/15/24 13:26 0.5 MG Acetaminophen 650 mg Q6HP PRN PO 03/05/24 13:15 03/10/24 16:03 650 MG Famotidine 20 mg DAILY IV 03/07/24 10:00 03/15/24 09:17 20 MG Albuterol 2.5 mg Q8HR NEB 03/07/24 22:00 03/15/24 13:26 2.5 MG Acetylcysteine 200 mg Q8HR NEB 03/09/24 22:00 03/15/24 13:26 200 MG Morphine Sulfate 2 mg Q4HPRN PRN IV 03/10/24 09:15 03/15/24 09:17 2 MG Acetaminophen/ Hydrocodone Bitart 1 tab Q4HPRN PRN PO 03/11/24 11:00 03/15/24 12:57 1 TAB Losartan Potassium 50 mg DAILY PO 03/12/24 10:00 03/15/24 09:17 50 MG Atorvastatin Calcium 20 mg DAILY PO 03/12/24 10:00 03/15/24 09:16 20 MG Trazodone HCl 100 mg HS PRN PO 03/11/24 12:15 03/14/24 21:44 100 MG Labetalol HCl 10 mg Q2HPRN PRN IV 03/11/24 12:00 03/12/24 17:54 10 MG Throat Lozenges 1 justine Q2HP PRN MT 03/11/24 12:00 03/14/24 18:19 1 JUSTINE Nystatin 5 ml QID MT 03/11/24 12:00 03/15/24 12:53 5 ML Amoxicillin/ Clavulanate Potassium 875 mg Q12HR PO 03/13/24 22:00 03/15/24 09:31 875 MG Laboratory Results Laboratory Tests 03/13/24 04:46 Urinalysis Test 03/03/24 13:38 Urine Color Yellow (Yellow) Urine Clarity Clear (Clear) Urine pH 6.0 (5.0-9.0) Urine Specific [place] 1.022 (1.001-1.035) Urine Protein 1+ (Negative) H Urine Ketones 2+ (Negative) H Urine Blood Negative /uL (Negative) Urine Nitrite Negative (Negative) Urine Bilirubin Negative (Negative) Urine Urobilinogen 4 mg/dL (Negative) H Urine Leukocyte Esterase Negative /uL (Negative) Urine RBC 1 /hpf (0 - 4) Urine WBC 2 /hpf (0 - 5) Urine Squamous Epithelial Cells Few /hpf (<5) Urine Bacteria None seen /hpf (None Seen) Urine Hyaline Casts Few /lpf (0 - 2) Urine Mucus Few (None Seen) Urine Glucose Normal mg/dL (Normal) Microbiology Microbiology Date/Time Source Procedure Growth Status 03/09/24 22:30 Bronchial Washings Gram Stain - Final Complete 03/09/24 22:30 Respiratory Culture - Final Staphylococcus lugdunensis Complete 03/04/24 00:25 Nose MRSA Screen - Final Complete 03/03/24 14:36 Blood Blood Culture - Final NO GROWTH AFTER 5 DAYS OF INCUBATION. Complete Labs and/or images reviewed: Labs reviewed by me Assessment/Plan Assessment/Plan Acute hypoxic/hypercapnia respiratory failure Acute Chronic obstructive pulmonary disease exacerbation Septic shock due to Influenza infection NSTEMI type 2 due to above Hypertensive urgency Emphysema Diabetes mellitus type 2 History of hypertension Hypokalemia Substance abuse with positive toxicology: Opiates and cocaine Plan: Continuing current management. Waiting for home health to set up. Continuing with Augmentin. Continuing with sliding scale insulin. Continuing with hypertensive medication and pain medication. Encouraged the patient to be out of bed and ambulate. Discharge planning. This medical document was created using an electronic medical record system with [employer] dictation system. Although this document has been carefully reviewed, there may still be some phonetic and typographical errors. These areas are purely typographical due to imperfections of the software programs, and do not reflect any compromise in the patient's medical care. Plan discussed with: Patient Date of Service: Mar 15, 2024 Billing Provider: PAULA OCHOA MD Common Visit Codes: [id number] INP/OBS CARE(HIGH) PAULA OCHOA MD Mar 15, 2024 13:53
--- NOTE | 2024-03-15 22:28 | DVHPN2 ---
Progress Note - Dictate Date Seen: Mar 15, 2024 Medical Necessity Reason Pt with a Central, PICC or Fol: No The following are medically ne: Central Line, Phillips Catheter Reason for phillips catheter: Strict I&O Subjective Patient seen and examined at bedside. Remains on supplemental oxygen Overnight events reviewed. vital signs Vital Sign Date Time Temp Pulse Resp B/P (MAP) Pulse Ox O2 Delivery O2 Flow Rate FiO2 03/15/24 22:06 92 16 100 03/15/24 21:00 97.7 155/72 (99) 97.7 03/15/24 20:00 Nasal Cannula* 2 28 Total Intake and Output 03/14/24 03/14/24 03/15/24 15:00 23:00 07:00 Intake Total 200 ml Balance 200 ml medications Current Medications Medications Dose Ordered Sig/Aida Route Start Time Stop Time Status Last Admin Dose Admin Hydralazine HCl 10 mg Q6HP PRN IV 03/03/24 17:00 03/11/24 21:45 10 MG Diagnostic Test (Pha) 1 strip Q6HR 03/03/24 18:00 03/15/24 17:49 1 STRIP Insulin Human Regular Q6HR SC 03/03/24 18:00 03/15/24 17:42 3 UNITS Dextrose 50 ml UD PRN IV 03/03/24 17:00 Sodium Chloride 10 ml Q8HR IV 03/03/24 22:00 03/15/24 13:41 10 ML Ipratropium [place] 0.5 mg Q8HR NEB 03/05/24 02:00 03/15/24 22:02 0.5 MG Acetaminophen 650 mg Q6HP PRN PO 03/05/24 13:15 03/10/24 16:03 650 MG Famotidine 20 mg DAILY IV 03/07/24 10:00 03/15/24 09:17 20 MG Albuterol 2.5 mg Q8HR NEB 03/07/24 22:00 03/15/24 22:02 2.5 MG Acetylcysteine 200 mg Q8HR NEB 03/09/24 22:00 03/15/24 22:02 200 MG Morphine Sulfate 2 mg Q4HPRN PRN IV 03/10/24 09:15 03/15/24 20:04 2 MG Acetaminophen/ Hydrocodone Bitart 1 tab Q4HPRN PRN PO 03/11/24 11:00 03/15/24 12:57 1 TAB Losartan Potassium 50 mg DAILY PO 03/12/24 10:00 03/15/24 09:17 50 MG Atorvastatin Calcium 20 mg DAILY PO 03/12/24 10:00 03/15/24 09:16 20 MG Trazodone HCl 100 mg HS PRN PO 03/11/24 12:15 03/15/24 21:18 100 MG Labetalol HCl 10 mg Q2HPRN PRN IV 03/11/24 12:00 03/12/24 17:54 10 MG Throat Lozenges 1 justine Q2HP PRN MT 03/11/24 12:00 03/14/24 18:19 1 JUSTINE Nystatin 5 ml QID MT 03/11/24 12:00 03/15/24 21:19 5 ML Amoxicillin/ Clavulanate Potassium 875 mg Q12HR PO 03/13/24 22:00 03/15/24 21:18 875 MG objective Gen.: Patient lying in bed in no apparent distress. On supplemental oxygen. Head: Normocephalic, atraumatic. Eyes: EOMI/PERRLA. Ears: Normal hearing. Normal anatomy. Neck/trachea: Trachea midline, supple. Nose: Normal external anatomy. Mouth: Moist mucous membranes. Chest: Decreased air entry bilaterally. No wheezing or rhonchi. Cardiovascular: Positive S1, positive S2. Regular rate and rhythm. Abdomen: Positive bowel sounds in all 4 quadrants. Soft, non-tender, non- distended. : Deferred. Rectal: Deferred. Skin: Warm, dry. Intact. Extremities: 2+ radial pulses bilaterally. No lower extremity edema. Neuro: Awake, alert, oriented x3. No gross motor or sensory deficits. Cranial nerves II through XII intact. Gait not assessed. laboratory and microbiology Laboratory Tests 03/13/24 04:46 Test 03/13/24 04:46 Range/Units Serum Glucose 75 74-106 mg/dL Assessment/Plan Impression: Acute hypoxic respiratory failure secondary to influenza infection Acute hypercarbic respiratory failure, PaCO2 65.3 mmHg Influenza type B infection On mechanical ventilator Elevated troponin Anemia Hyperglycemia Hypertensive urgency Sepsis Events: Remains on supplemental oxygen, 2 LPM NC Taper O2 as tolerated Continue bronchodilators/Mucomyst CPT Continue antibiotics - amoxicillin PO Incentive spirometry Continue Nystatin for thrush Pain control Avoid oversedation Accu-Cheks for glycemic monitoring Physical therapy GI prophylaxis w/ Pepcid. DVT prophylaxis w/ Lovenox. Disposition per hospitalist. Labs and imaging reviewed. Rest of plan as noted below. Plan: Patient is s/p extubation on 03/10. Currently on supplemental oxygen, 2 LPM NC Taper O2 as tolerated S/p bronchoscopy with RML BAL d/t increased ET tube secretions on 03/09. Bronchodilators PRN Pressors as necessary for hemodynamic support - currently off Titrate to keep MAP above 65 mmHg/SBP above 90 mmHg. IV steroids Tamiflu course for influenza B - completed Continue antibiotics. F/u cultures. Urinalysis: Leuk Esterase, nitrites negative F/u Urine tox Monitor renal function due to Acute kidney injury. Monitor electrolytes. Supplement as necessary. Nutritional support. Accucheks, ISS. GI proph: Pepcid BID DVT prophylaxis - Lovenox. Prognosis: Poor given multiple comorbidities. Rest of plan per hospitalist and other consultants. Thank you ASHLEE Vela for allowing me to participate in this patient's care. Further recommendations will depend on patient's clinical course. Please do not hesitate to contact me if you have any questions or concerns. This medical document was created using an electronic medical record system with [employer] dictation system. Although this document has been carefully reviewed, there may still be some phonetic and typographical errors. These areas are purely typographical due to imperfections of the software programs, and do not reflect any compromise in the patient's medical care. Dietary Evaluation Review Comments: 1) Consider advancing pt diet when medically feasible to a CCHO 45g/Cardiac diet, modifier per [employer] recommendations 2) Continue current plan fo care Expected Outcomes/Goals: F/U in 2-3 days Plan discussed with: Patient, Other (NAJMA Radford) SYLVIE RAMIREZ MD Mar 15, 2024 22:28
[2024-03-16] VITALS (11 sets, daily range): BP systolic 105–145; BP diastolic 48–86; PULSE 71–107; RESP 16–20; TEMP 97.7–99; O2SAT 94–100
--- NOTE | 2024-03-16 10:10 | DVHPN2 ---
Subjective The patient is seen and examined at bedside. No change overnight. Still shortness for breath. Reviewed: Care Plan, H&P, Labs, Medications Changes from previous H/P or p: No Changes General: Per HPI Eyes: No Pain, No Vision change, No Conjunctivae inflammation, No Eyelid inflammation, No Other, No Redness ENT: No Ear pain, No Ear discharge, No Nose pain, No Nose discharge, No Nose congestion, No Mouth pain, No Mouth swelling, No Throat pain, No Throat swelling, No Other Cardiovascular: No Chest Pain, No Palpitations, No Orthopnea, No Paroxysmal Noc. Dyspnea, No Edema, No Lt Headedness, No Other Respiratory: No Cough, No Dry, No Shortness of breath, No SOB with excertion, No Wheezing, No Hemoptysis, No Pleuritic Pain, No Sputum, No Other Gastrointestinal: No Nausea, No Vomiting, No Abdominal Pain, No Diarrhea, No Constipation, No Melena, No Hematochezia, No Other Genitourinary: No Dysuria, No Frequency, No Incontinence, No Hematuria, No Retention, No Other Musculoskeletal: No other, No neck pain, No shoulder pain, No arm pain, No back pain, No hand pain, No leg pain, No foot pain Skin: No Rash, No Lesions, No Jaundice, No Bruising, No Other Objective Vitals Vital Signs Date Time Temp Pulse Resp B/P (MAP) Pulse Ox O2 Delivery O2 Flow Rate FiO2 03/16/24 09:19 89 17 137/48 03/16/24 08:38 98.4 94 98.4 03/16/24 08:00 Nasal Cannula* 2 28 Intake/Output Intake and Output 03/16/24 07:00 Intake Total 1600 ml Balance 1600 ml Intake Oral 1600 ml # Voids 6 # Bowel Movements 1 General Appearance: Alert, Oriented X3, Cooperative, No acute distress HEENT: Atraumatic, PERRLA Lungs: Clear to auscultation, Normal air movement, Other (Mechanical ventilation) Cardiovascular: Normal S1, Normal S2 Abdomen: Normal bowel sounds, Soft Genitourinary: No Apparent Abnormalities Musculoskeletal: Normal sensory function, Normal motor function Neuro: Normal gait, Normal speech Skin: Dry, Intact Psych/Mental Status: Mental status NL, Mood NL Medications Current Medications Medications Dose Ordered Sig/Aida Route Start Time Stop Time Status Last Admin Dose Admin Hydralazine HCl 10 mg Q6HP PRN IV 03/03/24 17:00 03/11/24 21:45 10 MG Diagnostic Test (Pha) 1 strip Q6HR 03/03/24 18:00 03/16/24 06:08 1 STRIP Insulin Human Regular Q6HR SC 03/03/24 18:00 03/15/24 17:42 3 UNITS Dextrose 50 ml UD PRN IV 03/03/24 17:00 Sodium Chloride 10 ml Q8HR IV 03/03/24 22:00 03/16/24 05:50 10 ML Ipratropium [place] 0.5 mg Q8HR NEB 03/05/24 02:00 03/16/24 07:22 0.5 MG Acetaminophen 650 mg Q6HP PRN PO 03/05/24 13:15 03/10/24 16:03 650 MG Famotidine 20 mg DAILY IV 03/07/24 10:00 03/16/24 09:17 20 MG Albuterol 2.5 mg Q8HR NEB 03/07/24 22:00 03/16/24 07:22 2.5 MG Acetylcysteine 200 mg Q8HR NEB 03/09/24 22:00 03/16/24 07:21 200 MG Morphine Sulfate 2 mg Q4HPRN PRN IV 03/10/24 09:15 03/16/24 09:19 2 MG Acetaminophen/ Hydrocodone Bitart 1 tab Q4HPRN PRN PO 03/11/24 11:00 03/15/24 12:57 1 TAB Losartan Potassium 50 mg DAILY PO 03/12/24 10:00 03/16/24 09:18 50 MG Atorvastatin Calcium 20 mg DAILY PO 03/12/24 10:00 03/16/24 09:17 20 MG Trazodone HCl 100 mg HS PRN PO 03/11/24 12:15 03/15/24 21:18 100 MG Labetalol HCl 10 mg Q2HPRN PRN IV 03/11/24 12:00 03/12/24 17:54 10 MG Throat Lozenges 1 justine Q2HP PRN MT 03/11/24 12:00 03/14/24 18:19 1 JUSTINE Nystatin 5 ml QID MT 03/11/24 12:00 03/16/24 05:50 5 ML Amoxicillin/ Clavulanate Potassium 875 mg Q12HR PO 03/13/24 22:00 03/16/24 09:16 875 MG Laboratory Results Laboratory Tests 03/13/24 04:46 Urinalysis Test 03/03/24 13:38 Urine Color Yellow (Yellow) Urine Clarity Clear (Clear) Urine pH 6.0 (5.0-9.0) Urine Specific [place] 1.022 (1.001-1.035) Urine Protein 1+ (Negative) H Urine Ketones 2+ (Negative) H Urine Blood Negative /uL (Negative) Urine Nitrite Negative (Negative) Urine Bilirubin Negative (Negative) Urine Urobilinogen 4 mg/dL (Negative) H Urine Leukocyte Esterase Negative /uL (Negative) Urine RBC 1 /hpf (0 - 4) Urine WBC 2 /hpf (0 - 5) Urine Squamous Epithelial Cells Few /hpf (<5) Urine Bacteria None seen /hpf (None Seen) Urine Hyaline Casts Few /lpf (0 - 2) Urine Mucus Few (None Seen) Urine Glucose Normal mg/dL (Normal) Microbiology Microbiology Date/Time Source Procedure Growth Status 03/09/24 22:30 Bronchial Washings Gram Stain - Final Complete 03/09/24 22:30 Respiratory Culture - Final Staphylococcus lugdunensis Complete 03/04/24 00:25 Nose MRSA Screen - Final Complete 03/03/24 14:36 Blood Blood Culture - Final NO GROWTH AFTER 5 DAYS OF INCUBATION. Complete Labs and/or images reviewed: Labs reviewed by me Assessment/Plan Assessment/Plan Acute hypoxic/hypercapnia respiratory failure Acute Chronic obstructive pulmonary disease exacerbation Septic shock due to Influenza infection NSTEMI type 2 due to above Hypertensive urgency Emphysema Diabetes mellitus type 2 History of hypertension Hypokalemia Substance abuse with positive toxicology: Opiates and cocaine Plan: Continuing current management. Waiting for home health to set up. Continuing with Augmentin. Continuing with sliding scale insulin. Continuing with hypertensive medication and pain medication. Encouraged the patient to be out of bed and ambulate. Discharge planning. This medical document was created using an electronic medical record system with [employer] dictation system. Although this document has been carefully reviewed, there may still be some phonetic and typographical errors. These areas are purely typographical due to imperfections of the software programs, and do not reflect any compromise in the patient's medical care. Plan discussed with: Patient Date of Service: Mar 16, 2024 Billing Provider: PAULA OCHOA MD Common Visit Codes: [id number] INP/OBS CARE(HIGH) PAULA OCHOA MD Mar 16, 2024 10:10
--- NOTE | 2024-03-16 23:16 | DVHPN2 ---
Progress Note - Dictate Date Seen: Mar 16, 2024 Medical Necessity Reason Pt with a Central, PICC or Fol: No The following are medically ne: Central Line, Phillips Catheter Reason for phillips catheter: Strict I&O Subjective Patient seen and examined at bedside. Remains on supplemental oxygen Overnight events reviewed. vital signs Vital Sign Date Time Temp Pulse Resp B/P (MAP) Pulse Ox O2 Delivery O2 Flow Rate FiO2 03/16/24 21:52 164/77 03/16/24 21:50 90 18 100 03/16/24 21:40 Nasal Cannula* 2 28 03/16/24 21:00 98.8 98.8 Total Intake and Output 03/15/24 03/15/24 03/16/24 15:00 23:00 07:00 Intake Total 1000 ml 600 ml Balance 1000 ml 600 ml medications Current Medications Medications Dose Ordered Sig/Aida Route Start Time Stop Time Status Last Admin Dose Admin Hydralazine HCl 10 mg Q6HP PRN IV 03/03/24 17:00 03/16/24 21:52 10 MG Diagnostic Test (Pha) 1 strip Q6HR 03/03/24 18:00 03/16/24 18:08 1 STRIP Insulin Human Regular Q6HR SC 03/03/24 18:00 03/16/24 18:08 2 UNITS Dextrose 50 ml UD PRN IV 03/03/24 17:00 Sodium Chloride 10 ml Q8HR IV 03/03/24 22:00 03/16/24 15:44 10 ML Ipratropium [place] 0.5 mg Q8HR NEB 03/05/24 02:00 03/16/24 21:40 0.5 MG Acetaminophen 650 mg Q6HP PRN PO 03/05/24 13:15 03/10/24 16:03 650 MG Famotidine 20 mg DAILY IV 03/07/24 10:00 03/16/24 09:17 20 MG Albuterol 2.5 mg Q8HR NEB 03/07/24 22:00 03/16/24 21:40 2.5 MG Acetylcysteine 200 mg Q8HR NEB 03/09/24 22:00 03/16/24 21:41 200 MG Morphine Sulfate 2 mg Q4HPRN PRN IV 03/10/24 09:15 03/16/24 20:42 2 MG Acetaminophen/ Hydrocodone Bitart 1 tab Q4HPRN PRN PO 03/11/24 11:00 03/16/24 11:40 1 TAB Losartan Potassium 50 mg DAILY PO 03/12/24 10:00 03/16/24 09:18 50 MG Atorvastatin Calcium 20 mg DAILY PO 03/12/24 10:00 03/16/24 09:17 20 MG Trazodone HCl 100 mg HS PRN PO 03/11/24 12:15 03/16/24 21:40 100 MG Labetalol HCl 10 mg Q2HPRN PRN IV 03/11/24 12:00 03/12/24 17:54 10 MG Throat Lozenges 1 justine Q2HP PRN MT 03/11/24 12:00 03/14/24 18:19 1 JUSTINE Nystatin 5 ml QID MT 03/11/24 12:00 03/16/24 21:41 5 ML Amoxicillin/ Clavulanate Potassium 875 mg Q12HR PO 03/13/24 22:00 03/16/24 21:41 875 MG objective Gen.: Patient lying in bed in no apparent distress. On supplemental oxygen. Head: Normocephalic, atraumatic. Eyes: EOMI/PERRLA. Ears: Normal hearing. Normal anatomy. Neck/trachea: Trachea midline, supple. Nose: Normal external anatomy. Mouth: Moist mucous membranes. Chest: Decreased air entry bilaterally. No wheezing or rhonchi. Cardiovascular: Positive S1, positive S2. Regular rate and rhythm. Abdomen: Positive bowel sounds in all 4 quadrants. Soft, non-tender, non- distended. : Deferred. Rectal: Deferred. Skin: Warm, dry. Intact. Extremities: 2+ radial pulses bilaterally. No lower extremity edema. Neuro: Awake, alert, oriented x3. No gross motor or sensory deficits. Cranial nerves II through XII intact. Gait not assessed. laboratory and microbiology Laboratory Tests 03/13/24 04:46 Test 03/13/24 04:46 Range/Units Serum Glucose 75 74-106 mg/dL Assessment/Plan Impression: Acute hypoxic respiratory failure secondary to influenza infection Acute hypercarbic respiratory failure, PaCO2 65.3 mmHg Influenza type B infection On mechanical ventilator Elevated troponin Anemia Hyperglycemia Hypertensive urgency Sepsis Events: Remains on supplemental oxygen, 2 LPM NC Taper O2 as tolerated Continue bronchodilators/Mucomyst CPT Continue antibiotics - amoxicillin PO Incentive spirometry Continue Nystatin for thrush Pain control Avoid oversedation Accu-Cheks, ISS. Physical therapy GI prophylaxis w/ Pepcid. DVT prophylaxis w/ Lovenox. Disposition per hospitalist. Labs and imaging reviewed. Rest of plan as noted below. Plan: Patient is s/p extubation on 03/10. Currently on supplemental oxygen, 2 LPM NC Taper O2 as tolerated S/p bronchoscopy with RML BAL d/t increased ET tube secretions on 03/09. Bronchodilators PRN Pressors as necessary for hemodynamic support - currently off Titrate to keep MAP above 65 mmHg/SBP above 90 mmHg. IV steroids Tamiflu course for influenza B - completed Continue antibiotics. F/u cultures. Urinalysis: Leuk Esterase, nitrites negative F/u Urine tox Monitor renal function due to Acute kidney injury. Monitor electrolytes. Supplement as necessary. Nutritional support. Accuchek, ISS. GI proph: Pepcid BID DVT prophylaxis - Lovenox. Prognosis: Poor given multiple comorbidities. Rest of plan per hospitalist and other consultants. Thank you ASHLEE Vela for allowing me to participate in this patient's care. Further recommendations will depend on patient's clinical course. Please do not hesitate to contact me if you have any questions or concerns. This medical document was created using an electronic medical record system with [employer] dictation system. Although this document has been carefully reviewed, there may still be some phonetic and typographical errors. These areas are purely typographical due to imperfections of the software programs, and do not reflect any compromise in the patient's medical care. Dietary Evaluation Review Comments: 1) Consider advancing pt diet when medically feasible to a CCHO 45g/Cardiac diet, modifier per ENVELOPE FOLDING MACHINE OPERATOR recommendations 2) Continue current plan fo care Expected Outcomes/Goals: F/U in 2-3 days Plan discussed with: Patient, Other (NAJMA Radford) SYLVIE RAMIREZ MD Mar 16, 2024 23:16
[2024-03-17] VITALS (11 sets, daily range): BP systolic 98–118; BP diastolic 56–62; PULSE 70–99; RESP 16–20; TEMP 97.7–98.7; O2SAT 93–100
--- NOTE | 2024-03-17 09:38 | DVH ---
CHEST RADIOGRAPH Indication: New onset crackles Technique: Single frontal view of the chest was obtained Comparison: XY CHEST PORTABLE on DOS: 03/13/24, XY CHEST PORTABLE on DOS: 03/10/24, XY CHEST PORTABLE on DOS: 03/09/24, XY CHEST XRAY 1 VIEW on DOS: 03/08/24, XY CHEST XRAY 1 VIEW on DOS: 03/07/24, XY C HEST PORTABLE on DOS: 03/13/24 FINDINGS: Lines and Tubes: There is a left central venous catheter with its tip terminating in the superior ian a cava. ACDF hardware noted. Lungs: Bilateral interstitial prominence similar to prior study. No focal consolidation. Pleura: No effusion. No pneumothorax. Cardiomediastinal contours: Unremarkable Bones: No acute osseous abnormality. IMPRESSION: Bilateral interstitial prominence without focal consolidation similar to prior study.
--- NOTE | 2024-03-17 09:46 | DVHDS2 ---
Discharge Summary Date of Admission Mar 03, 2024 at 17:14 Date of Discharge: Mar 17, 2024 Admitting Diagnosis Acute respiratory failure Labs/Diagnostic Data: Laboratory Results Test 03/17/24 05:42 03/13/24 04:46 03/10/24 10:58 03/10/24 07:14 POC Glucose 94 mg/dl (70-106) White Blood Count 11.2 10^3/uL (4.4-10.8) Red Blood Count 3.81 10^6/uL (4.0-5.20) Hemoglobin 11.1 g/dL (12.2-16.2) Hematocrit 34.3 % (36.0-46.0) Mean Corpuscular Volume 89.9 fL (80.0-100.0) Mean Corpuscular Hemoglobin 29.2 pg (28.0-32.0) Mean Corpuscular Hemoglobin Concent 32.5 g/dL (32.0-36.0) Red Cell Distribution Width 16.3 % (11.8-14.3) Platelet Count 210 10^3/uL (140-450) Mean Platelet Volume 9.3 fL (6.9-10.8) Neutrophils (%) (Auto) 57.7 % (37.0-80.0) Lymphocytes (%) (Auto) 21.6 % (10.0-50.0) Monocytes (%) (Auto) 14.2 % (0.0-12.0) Eosinophils (%) (Auto) 5.6 % (0.0-7.0) Basophils (%) (Auto) 0.9 % (0.0-2.0) Neutrophils # (Auto) 6.5 10 ^3/uL (1.6-8.6) Lymphocytes # (Auto) 2.4 10 ^3/uL (0.4-5.4) Monocytes # (Auto) 1.6 10 ^3/uL (0-1.3) Eosinophils # (Auto) 0.6 10 ^3/uL (0-0.8) Basophils # (Auto) 0.1 10 ^3/uL (0-0.2) Nucleated Red Blood Cells 0.1 % Sodium Level 146 mmol/L (136-145) Potassium Level 4.0 mmol/L (3.5-5.1) Chloride Level 110 mmol/L (98-107) Carbon Dioxide Level 31 mmol/L (20-31) Anion Gap 5 (5-15) Blood Urea Nitrogen 6 mg/dL (9-23) Creatinine 0.56 mg/dL (0.550-1.02) Glomerular Filtration Rate Calc 101 mL/min (>90) BUN/Creatinine Ratio 10.7 (10.0-20.0) Serum Glucose 75 mg/dL (74-106) Calcium Level 9.3 mg/dL (8.7-10.4) Blood Gas Specimen Type Arterial Blood Gas Sample Site Right radial Blood Gas Patient Temperature 37.0 Arterial Blood Date Drawn [id number] Arterial Blood pH 7.381 (7.350-7.450) Arterial Blood Partial Pressure CO2 36.3 mmHg (32.0-45.0) Arterial Blood Partial Pressure O2 75.0 mmHg (83.0-108.0) Arterial Blood HCO3 21.0 mmol/L (21.0-28.0) Arterial Blood Oxygen Saturation 93.2 % (94.0-98.0) Arterial Blood Base Excess -3.5 mmol/L (-2.0-3.0) Arterial Blood Oxyhemoglobin 92.6 % (94.0-98.0) Arterial Blood Carboxyhemoglobin 0.5 % (0.5-1.5) Arterial Blood Methemoglobin 0.1 % (0.0-1.5) [place] Test Yes Blood Gas Total Hemoglobin 12.10 g/dL (12.0-16.0) Blood Gas Modality Vent - cpap FiO2 % 30.0 Blood Gas Pressure Support 8 Blood Gas PEEP or CPAP 5.0 Blood Gas Set Respiration Rate 24.0 Blood Gas Tidal Volume 400.0 Test 03/10/24 03:24 03/06/24 07:10 03/04/24 03:31 03/03/24 18:11 Magnesium Level 2.2 mg/dL (1.6-2.6) Blood Gas Spontaneous Rate 24 Blood Gas Inspiratory Pressure 33.0 Bl Gas Inspiratory/Expiratory Ratio 1:2.1 Specimen Drawn By ara laughlin Total Bilirubin 0.5 mg/dL (0.2-1.0) Aspartate Amino Transferase (AST) 18 U/L (13-40) Alanine Aminotransferase (ALT) 10 U/L (7-40) Alkaline Phosphatase 86 U/L (46-116) Total Protein 6.8 g/dL (5.7-8.2) Albumin 4.1 g/dL (3.2-4.8) Troponin I High Sensitivity 346 ng/L (</=34) Test 03/03/24 15:42 03/03/24 15:08 03/03/24 14:36 03/03/24 13:38 Influenza Type A Antigen Negative (Negative) Influenza Type B Antigen Positive (Negative) SARS-CoV-2 Antigen (Rapid) Negative (NEGATIVE) Blood Gas Critical Value Read Back Yes Blood Gas Notified Whom Blood Gas Notified Time [id number] Blood Gas Notified By Outside Industrial Sales Representative glenroy D-Dimer, Quantitative 0.31 mg/L FEU (0.0-0.49) Lactic Acid Level 1.4 mmol/L (0.4-2.0) B-Type Natriuretic Peptide 49.78 pg/mL (0-100) Thyroid Stimulating Hormone (TSH) 1.74 uIU/mL (0.55-4.78) Urine Color Yellow (Yellow) Urine Clarity Clear (Clear) Urine pH 6.0 (5.0-9.0) Urine Specific [place] 1.022 (1.001-1.035) Urine Protein 1+ (Negative) Urine Ketones 2+ (Negative) Urine Blood Negative /uL (Negative) Urine Nitrite Negative (Negative) Urine Bilirubin Negative (Negative) Urine Urobilinogen 4 mg/dL (Negative) Urine Leukocyte Esterase Negative /uL (Negative) Urine RBC 1 /hpf (0 - 4) Urine WBC 2 /hpf (0 - 5) Urine Squamous Epithelial Cells Few /hpf (<5) Urine Bacteria None seen /hpf (None Seen) Urine Hyaline Casts Few /lpf (0 - 2) Urine Mucus Few (None Seen) Urine Glucose Normal mg/dL (Normal) Urine Opiates Screen Pos (NEGATIVE) Urine Fentanyl Screen Neg (NEGATIVE) Urine Barbiturates Screen Neg (NEGATIVE) Urine Phencyclidine Screen Neg (NEGATIVE) Urine Amphetamines Screen Neg (NEGATIVE) Urine Benzodiazepines Screen Neg (NEGATIVE) Urine Cocaine Screen Pos (NEGATIVE) Urine Cannabinoids Screen Neg (NEGATIVE) Other Laboratory Tests 03/13/24 04:46 Brief Hx & Hospital Course: History of Present Illness The patient is a 64-year-old female with multiple past medical history including COPD, depression, DM, asthma, hypertension, and [place] who presented to [facility] ED with complaint of shortness of breaths for a proximally 4 days duration. As reported by EMS, patient's family states patient was having difficulty breathing, suddenly worsened so EMS were called. When EMS arrived on the scene, the patient was found on respiratory distress with hypoxia O2 saturation at 75%, tachycardic, and was given breathing treatment, placed on CPAP with no relief prior to being given 0.3mL epinephrine en route to our facility ED. patient was seen and evaluated in the ED, with improved O2 saturation at 96% bed CT having heavy work of breathing and was immediately intubated upon arrival to the emergency department. Laboratory data shows WBC 9.4, platelets 197, sodium 144, potassium 3.8, BUN 11, creatinine 0.63, BNP 49.78, troponin 150, serology reports positive for influenza B, blood pressure 263/143 trending down to 122/76, heart rate 108, temperature 97.3 F, O2 saturation 99% on ventilator. Please see medication orders section in the computer. On my assessment, patient remains fully intubated, no diaphoresis, no vomiting, no chills. Patient was admitted for further evaluation and medical management. Course of hospitalization: Patient was found positive for influenza B, for which the patient was started on Tamiflu, course completed. Patient also had positive sputum production with Staphylococcus lugdunensis. Patient had adequate antibiotic course over a span of two weeks. Toxicology screen was also positive for cocaine and opiates. Patient was successfully weaned off the mechanical ventilator. She has been ambulating with physical therapy without difficulty, greater than 40 ft. The patient states that she has oxygen at home and does not require any further DME. The patient has tolerating oral intake, as well as having significant overall clinical improvement. She will be discharged home with home health services for home wellness check as well as physical therapy. The patient declined going to a prison facility. Discussion was also made with the patient's family who were bedside. Physical examination General: Alert and Oriented x3. No acute distress. Well-nourished. Eyes: EOMI. Anicteric. HENT: Moist mucous membranes. Lungs: Clear to auscultation bilaterally. No accessory muscle use. Cardiovascular: Regular rate and rhythm. No murmur. No JVD. Abdomen: Soft, non-tender and non-distended. No palpable masses. Extremities: No edema. Non-tender. Skin: No rashes or lesions. Warm. Neurologic: No focal neurological deficits. CN II-XII grossly intact, but not individually tested. Psychiatric: Cooperative. Appropriate mood and affect. Total time spent with patient discussing and formulating plan of care: 35 minutes. This medical document was created using an electronic medical record system with [employer] dictation system. Although this document has been carefully reviewed, there may still be some phonetic and typographical errors. These areas are purely typographical due to imperfections of the software programs, and do not reflect any compromise in the patient's medical care. Condition at Discharge: Poor Final Diagnosis/Problems List Acute respiratory failure Secondary Diagnosis: Acute hypoxic/hypercapnia respiratory failure Acute Chronic obstructive pulmonary disease exacerbation Septic shock due to Influenza infection NSTEMI type 2 due to above Hypertensive urgency Emphysema Diabetes mellitus type 2 History of hypertension Hypokalemia Substance abuse with positive toxicology: Opiates and cocaine Discharge Disposition: Home Discharge Instruct/Medications Diet: Cardiac 2g Na,low cholest Activity: No Restrictions, As Tolerated Follow Up/Referral: Follow up with PCP in 1-2 weeks Follow up with discharge Clinic in one week Medications: Continue all previous home medications 36 Discharge Statement: "Patient was advised to return to the ER or call 911 if any headaches, dizziness, shortness of breath, chest pain, abdominal pain, bleeding, fevers, or worsening of medical condition. Patient was counseled about treatment plan, medications, possible side effects, patientverbalized understanding. All questions were answered to the best of my ability. This discharge took greater then 30 minutes in planning, reviewing documentation, counseling the patient, and discussing with other team members." ASSESSMENT ASSESSMENT Assessment Acute respiratory failure Date of Service: Mar 17, 2024 Billing Provider: SIERRA MCCOLLUM NP Common Visit Codes: 14378-FBN/OBS DISCH DAY >30min SIERRA MCCOLLUM NP Mar 17, 2024 09:46
--- NOTE | 2024-03-17 22:25 | DVHPN2 ---
Progress Note - Dictate Date Seen: Mar 17, 2024 Medical Necessity Reason Pt with a Central, PICC or Fol: No The following are medically ne: Central Line, Phillips Catheter Reason for phillips catheter: Strict I&O Subjective Patient seen and examined at bedside. Remains on supplemental oxygen Overnight events reviewed. vital signs Vital Sign Date Time Temp Pulse Resp B/P (MAP) Pulse Ox O2 Delivery O2 Flow Rate FiO2 03/17/24 20:23 18 Nasal Cannula* 2 28 03/17/24 17:00 98.3 94 98/56 (70) 96 98.3 Total Intake and Output 03/16/24 03/16/24 03/17/24 15:00 23:00 07:00 Intake Total 800 ml 825 ml Balance 800 ml 825 ml medications Current Medications Medications Dose Ordered Sig/Aida Route Start Time Stop Time Status Last Admin Dose Admin Hydralazine HCl 10 mg Q6HP PRN IV 03/03/24 17:00 03/16/24 21:52 10 MG Diagnostic Test (Pha) 1 strip Q6HR 03/03/24 18:00 03/17/24 18:00 1 STRIP Insulin Human Regular Q6HR SC 03/03/24 18:00 03/16/24 18:08 2 UNITS Dextrose 50 ml UD PRN IV 03/03/24 17:00 Sodium Chloride 10 ml Q8HR IV 03/03/24 22:00 03/17/24 22:17 10 ML Ipratropium [place] 0.5 mg Q8HR NEB 03/05/24 02:00 03/17/24 14:14 0.5 MG Acetaminophen 650 mg Q6HP PRN PO 03/05/24 13:15 03/10/24 16:03 650 MG Famotidine 20 mg DAILY IV 03/07/24 10:00 03/17/24 10:12 20 MG Albuterol 2.5 mg Q8HR NEB 03/07/24 22:00 03/17/24 14:14 2.5 MG Acetylcysteine 200 mg Q8HR NEB 03/09/24 22:00 03/17/24 14:14 200 MG Morphine Sulfate 2 mg Q4HPRN PRN IV 03/10/24 09:15 03/17/24 15:08 2 MG Acetaminophen/ Hydrocodone Bitart 1 tab Q4HPRN PRN PO 03/11/24 11:00 03/17/24 12:06 1 TAB Losartan Potassium 50 mg DAILY PO 03/12/24 10:00 03/17/24 10:12 50 MG Atorvastatin Calcium 20 mg DAILY PO 03/12/24 10:00 03/17/24 10:12 20 MG Trazodone HCl 100 mg HS PRN PO 03/11/24 12:15 03/16/24 21:40 100 MG Labetalol HCl 10 mg Q2HPRN PRN IV 03/11/24 12:00 03/12/24 17:54 10 MG Throat Lozenges 1 justine Q2HP PRN MT 03/11/24 12:00 03/14/24 18:19 1 JUSTINE Nystatin 5 ml QID MT 03/11/24 12:00 03/17/24 18:00 5 ML Amoxicillin/ Clavulanate Potassium 875 mg Q12HR PO 03/13/24 22:00 03/17/24 10:12 875 MG objective Gen.: Patient lying in bed in no apparent distress. On supplemental oxygen. Head: Normocephalic, atraumatic. Eyes: EOMI/PERRLA. Ears: Normal hearing. Normal anatomy. Neck/trachea: Trachea midline, supple. Nose: Normal external anatomy. Mouth: Moist mucous membranes. Chest: Decreased air entry bilaterally. No wheezing or rhonchi. Cardiovascular: Positive S1, positive S2. Regular rate and rhythm. Abdomen: Positive bowel sounds in all 4 quadrants. Soft, non-tender, non- distended. : Deferred. Rectal: Deferred. Skin: Warm, dry. Intact. Extremities: 2+ radial pulses bilaterally. No lower extremity edema. Neuro: Awake, alert, oriented x3. No gross motor or sensory deficits. Cranial nerves II through XII intact. Gait not assessed. laboratory and microbiology Laboratory Tests 03/13/24 04:46 Test 03/13/24 04:46 Range/Units Serum Glucose 75 74-106 mg/dL Assessment/Plan Impression: Acute hypoxic respiratory failure secondary to influenza infection Acute hypercarbic respiratory failure, PaCO2 65.3 mmHg Influenza type B infection On mechanical ventilator Elevated troponin Anemia Hyperglycemia Hypertensive urgency Sepsis Events: Remains on supplemental oxygen, 2 LPM NC Taper O2 as tolerated Arranged for home O2. Patient is stable for discharge from the pulmonary standpoint. Follow up in 2-3 weeks in Pulmonary Clinic to assess ongoing O2 requirements. Continue bronchodilators PRN Incentive spirometry Mucomyst/CPT Continue antibiotics - amoxicillin PO Pain control Avoid oversedation Physical therapy Disposition per hospitalist. Labs and imaging reviewed. Rest of plan as noted below. Plan: Patient is s/p extubation on 03/10. Currently on supplemental oxygen, 2 LPM NC Taper O2 as tolerated S/p bronchoscopy with RML BAL d/t increased ET tube secretions on 03/09. Bronchodilators PRN Pressors as necessary for hemodynamic support - currently off Titrate to keep MAP above 65 mmHg/SBP above 90 mmHg. IV steroids Tamiflu course for influenza B - completed Continue antibiotics. F/u cultures. Urinalysis: Leuk Esterase, nitrites negative F/u Urine tox Monitor renal function due to Acute kidney injury. Monitor electrolytes. Supplement as necessary. Nutritional support. KATLIN Vaughan. GI proph: Pepcid BID DVT prophylaxis - Lovenox. Prognosis: Poor given multiple comorbidities. Rest of plan per hospitalist and other consultants. Thank you CUSTOMER SERVICE TELLER Mirian for allowing me to participate in this patient's care. Further recommendations will depend on patient's clinical course. Please do not hesitate to contact me if you have any questions or concerns. This medical document was created using an electronic medical record system with [employer] dictation system. Although this document has been carefully reviewed, there may still be some phonetic and typographical errors. These areas are purely typographical due to imperfections of the software programs, and do not reflect any compromise in the patient's medical care. Dietary Evaluation Review Comments: 1) Consider advancing pt diet when medically feasible to a CCHO 45g/Cardiac diet, modifier per SUBACUTE NURSE recommendations 2) Continue current plan fo care Expected Outcomes/Goals: F/U in 2-3 days Plan discussed with: Patient, Other (NAJMA Berumen) SYLVIE RAMIREZ MD Mar 17, 2024 22:25
== END 2024-03-17 23:07 | disposition home health service (06) | DRG 870 ==
LOC: EDBD 13:34 → ER 13:34 → ICU WEST 17:14 → OVERFLOW 17:14 → ICU WEST 23:32 → TELE-EAST 03-10 23:19 → EAST 03-14 02:25
PROVIDERS: ADMIT Internal Medicine Pulmonary Disease; ATTEND Nurse Practitioner Acute Care
PROC: 5A1955Z Respiratory Ventilation, Greater than 96 Consecutive Hours (ICD-10-PCS; principal; 2024-03-03)
PROC: 0BH17EZ Insertion of Endotracheal Airway into Trachea, Via Natural or Artificial Opening (ICD-10-PCS; 2024-03-03)
PROC: 5A09357 Assistance with Respiratory Ventilation, Less than 24 Consecutive Hours, Continuous Positive Airway Pressure (ICD-10-PCS; 2024-03-03)
PROC: 02HV33Z Insertion of Infusion Device into Superior Vena Cava, Percutaneous Approach (ICD-10-PCS; 2024-03-03)
PROC: 0B968ZZ Drainage of Right Lower Lobe Bronchus, Via Natural or Artificial Opening Endoscopic (ICD-10-PCS; 2024-03-07)
PROC: 0B988ZZ Drainage of Left Upper Lobe Bronchus, Via Natural or Artificial Opening Endoscopic (ICD-10-PCS; 2024-03-07)
PROC: 0B9D8ZX Drainage of Right Middle Lung Lobe, Via Natural or Artificial Opening Endoscopic, Diagnostic (ICD-10-PCS; 2024-03-09)
PROC: 0B978ZZ Drainage of Left Main Bronchus, Via Natural or Artificial Opening Endoscopic (ICD-10-PCS; 2024-03-09)
PROC: 0B21XEZ Change Endotracheal Airway in Trachea, External Approach (ICD-10-PCS; 2024-03-09)
DX: A41.89 Other specified sepsis (principal); I21.A1 Myocardial infarction type 2; J96.02 Acute respiratory failure with hypercapnia; J96.01 Acute respiratory failure with hypoxia; R65.21 Severe sepsis with septic shock; J44.1 Chronic obstructive pulmonary disease with (acute) exacerbation; Z20.822 Contact with and (suspected) exposure to COVID-19; J10.1 Influenza due to other identified influenza virus with other respiratory manifestations; I16.0 Hypertensive urgency; D64.9 Anemia, unspecified; E11.65 Type 2 diabetes mellitus with hyperglycemia; E87.6 Hypokalemia; F14.10 Cocaine abuse, uncomplicated; J43.9 Emphysema, unspecified; I10 Essential (primary) hypertension; F17.210 Nicotine dependence, cigarettes, uncomplicated; E78.5 Hyperlipidemia, unspecified; Z90.710 Acquired absence of both cervix and uterus; Z79.4 Long term (current) use of insulin; Z79.899 Other long term (current) drug therapy
CPT/HCPCS: 31500; 36415; 36556; 36600; 70450; 71045; 71250; 80048; 80053; 80307; 81001; 82805; 82962; 83605; 83735; 83880; 84443; 84484; 85025; 85379; 87040; 87070; 87081; 87205; 87426; 87804; 93005; 93306; 94003; 94640; 94668; 97110; 97116; 97163; 97530; 99152; G0378; G9035; J0330; J1100; J1815; J2250; J2704; J3480; J3490; J7060

== ENCOUNTER 2024-04-01 19:57 | Inpatient (IN) | payer OTHER, MEDICAID ==
[~2024-04-01] VITALS: Ht 154.9 cm; Wt 54.0 kg
[~2024-04-01 19:57] MED LIST changes: -BLOO1KIT60 XX; -DOXY100C79 PO; -PRED20TA2 PO; -TAMIFLU PO
[2024-04-01 20:10] VITALS: PULSE 95; RESP 44; O2SAT 99
--- NOTE | 2024-04-01 20:18 | ED.PDOC ---
SOB-HPI HPI Comments 64-year-old female brought in by EMS presents with a chief complaint of SOB with wheezing. Per EMS, patient was sating at 78%, with audible wheezes, and had a RR of 34. Patient had an increased work of breathing and was given a dual nebulizer breathing treatment and placed on CPAP. Patient is now sating at 100% on the CPAP. 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 History Family History Family History: No family hx of Cancer, No family hx of DM, No family hx of HTN Social History Smoker: Cigarettes Alcohol: Occasionally Drugs: Denies Drug Use Lives In: Home Constitutional: denies: chills, diaphoresis, fatigue, fever, malaise, sweats, weakness, others EENTM: denies: blurred vision, double vision, ear bleeding, ear discharge, ear drainage, ear pain, ear ringing, eye pain, eye redness, hearing loss, mouth pain, mouth swelling, nasal discharge, nose bleeding, nose congestion, nose pain, photophobia, tearing, throat pain, throat swelling, voice changes, others Respiratory: reports: shortness of breath, wheezing; denies: cough, hemoptysis, orthopnea, SOB at rest, SOB with excertion, stridor, others Cardiovascular: denies: chest pain, dizzy spells, diaphoresis, Dyspnea on exertion, edema, irregular heart beat, left arm pain, lightheadedness, palpitations, PND, syncope, others Gastrointestinal: denies: abdomen distended, abdominal pain, blood streaked bowels, constipated, diarrhea, dysphagia, difficulty swallowing, hematemesis, melena, nausea, poor appetite, poor fluid intake, rectal bleeding, rectal pain, vomiting, others Genitourinary: denies: abnormal vagina bleeding, burning, dyspareunia, dysuria, flank pain, frequency, hematuria, incontinence, pain, , vagina discharge, urgency, others Neurological: denies: dizziness, fainting, headache, left sided numbness, left sided weakness, numbness, paresthesia, pre-existing deficit, right sided numbness, right sided weakness, seizure, speech problems, tingling, tremors, weakness, others Musculoskeletal: denies: back pain, gout, joint pain, joint swelling, muscle pain, muscle stiffness, neck pain, others Integumetry: denies: bruises, change in color, change in hair/nails, dryness, laceration, lesions, lumps, rash, wounds, others Allergic/Immunocompromised: denies: Difficulty Healing, Frequent Infections, Hives, Itching, others Hematologic/Lymphatic: denies: anemia, blood clots, easy bleeding, easy bruising, swollen glands, others Endocrine: denies: excessive hunger, excessive sweating, excessive thirst, excessive urination, flushing, intolerance to cold, intolerance to heat, unexplained weight gain, unexplained weight loss, others Psychiatric: denies: anxiety, bipolar disorder, depression, hopeless, panic disorder, schizophrenia, sleepless, suicidal, others All Other Systems: Reviewed and Negative Physical Exam General Appearance: Moderate Distress HEENT: Normal ENT Inspection, Pharynx Normal, TMs Normal Neck: Full Range of Motion, Non-Tender, Normal, Normal Inspection Respiratory: Accessory Muscle Use, Respiratory Distress, Wheezing Cardiovascular: Tachycardia Breast Exam: Deferred Gastrointestinal: No Organomegaly, Non Tender, No Pulsatile Mass, Normal Bowel Sounds, Soft Genitalia: Deferred Pelvic: Deferred Rectal: Deferred Extremities: No calf tenderness, Normal capillary refill, Normal inspection, Normal range of motion, Non-tender, No pedal edema Neurologic: Alert, No Motor Deficits Cerebellar Function: Normal Reflexes: Normal Skin: Dry, Normal Color, Warm Lymphatic: No Adenopathy Was a procedure done? Was a procedure done?: Yes Sedation Sedation?: Yes Informed consent obtained: Yes Sedation start time: 23:17 Sedation end time: 23:18 Sedation total time: 1 minute Intubation Indication: Respiratory Insufficiency Prep: Preoxygenation Pretreated with: Sedation Medicated with: Other (ETOMIDATE AND ROCRUONIUM) Intubation Approach: Orotracheal Differential Dx Differential Diagnosis: CHF, COPD, Hypertension, Panic Attack, Pneumonia, Pneumothorax, Respiratory Distress, URI X-Ray, Labs, Meds, VS Vital Signs Date Time Temp Pulse Resp B/P (MAP) Pulse Ox O2 Delivery O2 Flow Rate FiO2 04/01/24 23:30 103 18 241/124 (163) 100 30 04/01/24 21:59 88 188/92 Facial BiPAP Mask 30 04/01/24 21:18 98 21 188/92 (124) 99 04/01/24 20:39 91 174/95 Facial BiPAP Mask 50 04/01/24 20:18 91 04/01/24 20:13 83 04/01/24 20:10 95 40 174/95 (121) 99 04/01/24 19:57 96.8 104 34 169/119 (136) 100 Lab Test 04/01/24 22:48 04/01/24 21:31 04/01/24 20:28 04/01/24 20:23 Range/Units Lactic Acid Level 4.6 *H 4.8 *H 0.4-2.0 mmol/L Troponin I High Sensitivity 5 6 4 </=34 ng/L White Blood Count 10.4 4.4-10.8 10^3/uL Red Blood Count 3.94 L 4.0-5.20 10^6/uL Hemoglobin 11.4 L 12.2-16.2 g/dL Hematocrit 36.1 36.0-46.0 % Mean Corpuscular Volume 91.5 80.0-100.0 fL Mean Corpuscular Hemoglobin 29.0 28.0-32.0 pg Mean Corpuscular Hemoglobin Concent 31.7 L 32.0-36.0 g/dL Red Cell Distribution Width 17.2 H 11.8-14.3 % Platelet Count 367 140-450 10^3/uL Mean Platelet Volume 9.1 6.9-10.8 fL Neutrophils (%) (Auto) 58.5 37.0-80.0 % Lymphocytes (%) (Auto) 26.7 10.0-50.0 % Monocytes (%) (Auto) 12.0 0.0-12.0 % Eosinophils (%) (Auto) 1.1 0.0-7.0 % Basophils (%) (Auto) 1.7 0.0-2.0 % Neutrophils # (Auto) 6.1 1.6-8.6 10 ^3/uL Lymphocytes # (Auto) 2.8 0.4-5.4 10 ^3/uL Monocytes # (Auto) 1.2 0-1.3 10 ^3/uL Eosinophils # (Auto) 0.1 0-0.8 10 ^3/uL Basophils # (Auto) 0.2 0-0.2 10 ^3/uL Nucleated Red Blood Cells 0.0 % Sodium Level 147 H 136-145 mmol/L Potassium Level 3.0 L 3.5-5.1 mmol/L Chloride Level 111 H 98-107 mmol/L Carbon Dioxide Level 26 20-31 mmol/L Anion Gap 10 5-15 Blood Urea Nitrogen 13 9-23 mg/dL Creatinine 0.77 0.550-1.02 mg/dL Glomerular Filtration Rate Calc 86 >90 mL/min BUN/Creatinine Ratio 16.9 10.0-20.0 Serum Glucose 85 74-106 mg/dL Calcium Level 9.5 8.7-10.4 mg/dL Total Bilirubin 0.3 0.2-1.0 mg/dL Aspartate Amino Transferase (AST) 12 L 13-40 U/L Alanine Aminotransferase (ALT) < 9 7-40 U/L Alkaline Phosphatase 91 46-116 U/L B-Type Natriuretic Peptide 133.62 0-100 pg/mL Total Protein 6.3 5.7-8.2 g/dL Albumin 3.8 3.2-4.8 g/dL Blood Gas Specimen Type Arterial Blood Gas Sample Site Right radial Blood Gas Patient Temperature 37.0 Arterial Blood Date Drawn [id number] Arterial Blood pH 7.394 7.350-7.450 Arterial Blood Partial Pressure CO2 35.7 32.0-45.0 mmHg Arterial Blood Partial Pressure O2 224.6 H 83.0-108.0 mmHg Arterial Blood HCO3 21.3 21.0-28.0 mmol/L Arterial Blood Oxygen Saturation 99.8 H 94.0-98.0 % Arterial Blood Base Excess -3.0 L -2.0-3.0 mmol/L Arterial Blood Oxyhemoglobin 98.9 H 94.0-98.0 % Arterial Blood Carboxyhemoglobin 0.5 0.5-1.5 % Arterial Blood Methemoglobin 0.4 0.0-1.5 % Quinton Test Modified Blood Gas Total Hemoglobin 11.70 L 12.0-16.0 g/dL Blood Gas Set Respiration Rate 12.0 Blood Gas Modality Vent - ac Blood Gas Spontaneous Rate 29 FiO2 % 50.0 Blood Gas Spontaneous Tidal Volume 524 Blood Gas EPAP 5 Blood Gas IPAP 12 Current Medications Medications (Trade) Dose Ordered Sig/Aida Route Start Time Stop Time Status Last Admin Methylprednisolone Sodium Succinate (Solu Medrol) 62.5 mg ONCE ONCE IV 04/01/24 20:15 04/01/24 20:16 DC 04/01/24 20:51 Azithromycin 250 ml @ 125 mls/hr ONCE ONCE IV 04/01/24 20:15 04/01/24 22:14 DC 04/01/24 20:54 Albuterol (Ventolin Medneb) 20 mg ONCE ONCE NEB 04/01/24 20:45 04/01/24 20:46 DC 04/01/24 20:48 Ketamine HCl (Ketalar) 30 mg ONCE ONCE IV 04/01/24 21:00 04/01/24 21:01 DC 04/01/24 20:52 Time of 1ST Reevaluation: 20:28 Reevaluation 1ST: Unchanged Patient Education/Counseling: Diagnosis, Treatment, Prognosis Family Education/Counseling: No Family Present Departure 1 Departure Time of Disposition: 00:17 (Patient presented with acute shortness of breath concerning for acute on chronic COPD Exacerbation, Pneumonia, ACS, CHF, Pneumothorax. Less likely PE, Dissection. Data: 1. I ordered and reviewed the result of at least 3 labs including a CBC, BMP, and Troponin. 2. I independently interpreted the following tests: Chest X-ray shows clear lungs .Risk:This patient has a high risk of morbidity due to further diagnostic testing or treatment and may suffer from respiratory or cardiac etiology . Workup reveals a likely COPD Exacerbation and patient should be admitted for further workup. and possible expert consultation.Patient continued to deteriorate with increasing work of breathing and tachypnea to the 50s. Patient was emergently intubated and central line placed.) Impression: Primary Impression: Acute respiratory failure with hypoxia Additional Impressions: Acute exacerbation of chronic obstructive pulmonary disease (COPD) Metabolic encephalopathy Disposition: ADMITTED INPATIENT Admit to: ICU Condition: Critical Critical Care Note Critical Care Time?: Yes Critical care comment: Acute respiratory failure Authorized and Performed by: Esperanza Collazo MD Total critical care time: Approximately 96 minutes Due to a high probability of clinically significant, life threatening deterioration, the patient required my highest level of preparedness to intervene emergently and I personally spent this critical care time directly and personally managing the patient. This critical care time included obtaining a history; examining the patient; pulse oximetry; ordering and review of studies; arranging urgent treatment with development of a management plan; evaluation of patient's response to treatment; frequent reassessment; and, discussions with other providers. This critical care time was performed to assess and manage the high probability of imminent, life-threatening deterioration that could result in multi-organ failure. It was exclusive of separately billable procedures and treating other patients and teaching time. Please see my other sections and the rest of the note for further information on patient assessment and treatment. Stability Stability form required: No Heart Score Heart Score: Heart Score Response (Comments) Value History N/A 0 EKG N/A 0 Age N/A 0 Risk Factors N/A 0 Troponin N/A 0 Total 0 I personally scribed for ESPERANZA COLLAZO MD ([email or web address]) on 04/01/24 at 20:17. Electronically submitted by John Osman ([email or web address]). I personally scribed for ESPERANZA COLLAZO MD ([email or web address]) on 04/01/24 at 23:28. Electronically submitted by John Osman ([email or web address]). ESPERANZA COLLAZO MD Apr 01, 2024 20:17
[2024-04-01] MEDS: ALBUTEROL SULF 2.5 MG/0.5ML(0.5%) NEB SOLN NEB ONE ×2 (20:35→20:48)
[2024-04-01] MEDS: IPRATROPIUM BROM 0.5 MG/2.5ML INH SOL NEB ONE (20:35)
[2024-04-01 20:44] LABS: Basophils # (auto) 0.2 10 ^3/uL (0-0.2); Basophils % (auto) 1.7 % (0.0-2.0); Eosinophils # (auto) 0.1 10 ^3/uL (0-0.8); Eosinophils % (auto) 1.1 % (0.0-7.0); Hematocrit 36.1 % (36.0-46.0); Hemoglobin 11.4 g/dL (12.2-16.2); Lymphocytes # (auto) 2.8 10 ^3/uL (0.4-5.4); Lymphocytes % (auto) 26.7 % (10.0-50.0); Mean Corpuscular Hgb Conc. 31.7 g/dL (32.0-36.0); Mean Corpuscular Volume 91.5 fL (80.0-100.0); Monocytes # (auto) 1.2 10 ^3/uL (0-1.3); Neutrophils # (auto) 6.1 10 ^3/uL (1.6-8.6); Neutrophils % (auto) 58.5 % (37.0-80.0); Platelet Count (auto) 367 10^3/uL (140-450); Red Blood Cells 3.94 10^6/uL (4.0-5.20); Red Cell Distribution Width 17.2 % (11.8-14.3); White Blood Cell 10.4 10^3/uL (4.4-10.8)
[2024-04-01] MEDS: methylPREDNISolone SOD SUCC 125 MG/2 ML VL IV ONE (20:51)
[2024-04-01] MEDS: KETAMINE 50mg/ML 10ml Vial (500mg/10ml) IV ONE (20:52)
[2024-04-01] MEDS: AZITHROMYCIN 500MG/ 250ML 250 ML IV ONE (20:54)
[2024-04-01 21:00] LABS: Albumin 3.8 g/dL (3.2-4.8); Alkaline Phosphatase 91 U/L (46-116); Anion Gap 10 (5-15); BUN/Creatinine Ratio 16.9 (10.0-20.0); Blood Urea Nitrogen 13 mg/dL (9-23); Calcium 9.5 mg/dL (8.7-10.4); Carbon Dioxide 26 mmol/L (20-31); Glucose 85 mg/dL (74-106)
[2024-04-01 21:03] LABS: Bilirubin, Total 0.3 mg/dL (0.2-1.0); Total Protein 6.3 g/dL (5.7-8.2)
--- NOTE | 2024-04-01 21:13 | DVH ---
CHEST RADIOGRAPH Indication: sob Technique: Single frontal view of the chest was obtained Comparison: XY CHEST XRAY 1 VIEW on DOS: 03/17/24, XY CHEST PORTABLE on DOS: 03/13/24, XY CHEST SURENDRA BLE on DOS: 03/10/24 FINDINGS: Lines and Tubes: None Lungs: Clear Pleura: No effusion. No pneumothorax. Cardiomediastinal contours: Unremarkable Bones: Unremarkable IMPRESSION: 1. Clear lungs.
[2024-04-01 21:31] LABS: Alanine Aminotransferase < 9 U/L (7-40); Aspartate Aminotransferase 12 U/L (13-40); Chloride 111 mmol/L (98-107); Sodium 147 mmol/L (136-145)
[2024-04-01 22:01] LABS: Lactic Acid w/Reflex 4.8 mmol/L (0.4-2.0)
[2024-04-01] MEDS: ETOMIDATE (2MG/ML) 20ML VIAL IV ONE (23:17)
[2024-04-01] MEDS: ROCURONIUM 10MG/ML 10ML VIAL IV ONE (23:17)
[2024-04-01] MEDS: PROPOFOL 100 ML IV SCH (23:20)
[2024-04-01] MEDS: PROPOFOL 100 ML IV ONE (23:22)
[2024-04-01] MEDS: NALOXONE HCL 1MG/ML 2ML SYRINGE ONE (23:23)
[2024-04-02] VITALS (15 sets, daily range): BP systolic 93–181; BP diastolic 48–83; PULSE 63–120; RESP 16–20; TEMP 96.8; O2SAT 93–100
--- NOTE | 2024-04-02 00:09 | DVHNC2 ---
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) Room prepared for procedure: Yes Closet Organizer performed hand hygien: Yes Maximal sterile barrier precau: Mask/Eye shield, Sterile gown, Cap, Sterlie gloves, Large sterlie drape Skin Preparation: Chlorhexidine gluconate Skin preparation completely dr: Yes Insertion site: Left, Internal jugular Central line catheter type: [id number]-yvc dialysis Number of lumens: 3 Intubation Indication: Respiratory Insufficiency Prep: Preoxygenation Medicated with: Other (etomidate and rocuronium) Intubation Approach: Orotracheal Intubation size: cm (8) Date of Service: Apr 02, 2024 Billing Provider: ESPERANZA MOLINA MD Common Visit Codes: PROCEDURE ONLY Procedure Codes: [id number], [id number] NON-TUNNEL CV CATH CLARENCE GARG RESIDENT Apr 02, 2024 00:09
--- NOTE | 2024-04-02 00:23 | DVH ---
CHEST RADIOGRAPH Indication: post intubation Technique: Single frontal view of the chest was obtained Comparison: XY CHEST PORTABLE on DOS: 04/01/24, XY CHEST XRAY 1 VIEW on DOS: 03/17/24, XY CHEST SURENDRA BLE on DOS: 03/13/24 Findings/ IMPRESSION: Left IJ CVC with tip terminating near the cavoatrial junction. Endotracheal tube projected 3.5 cm sup erior to the pedro. Enteric tube coursing towards the GE junction without visualization of side port or catheter tip. No focal consolidation or pneumothorax. Bilateral diffuse interstitial opacities co ncerning for possible pulmonary edema. No pneumothorax. No pleural effusions.
[2024-04-02] MEDS: NALOXONE HCL 0.4 MG/ML VIAL ONE (00:32)
[2024-04-02] MEDS: fentaNYL Drip 2500mCg/250mlNS 250 ML IV SCH (00:45)
[2024-04-02] MEDS: FUROSEMIDE 20 MG/2 ML VIAL IV ONE (01:00)
[2024-04-02] MEDS ORDERED: ACETAMINOPHEN 325 MG TAB PO PRN (01:00)
[2024-04-02] MEDS ORDERED: ONDANSETRON HCL 4 MG/2 ML VIAL IV PRN (01:00)
[2024-04-02] MEDS: dilTIAZem 25 MG/5 ML VIAL IV ONE (01:00)
[2024-04-02] MEDS ORDERED: MORPHINE SULFATE INJ 2 MG/ml SYRG IV PRN (01:00)
[2024-04-02] MEDS ORDERED: NITROGLYCERIN 0.4 MG SL TAB SL PRN (01:00)
[2024-04-02 01:16] LABS: Base Excess -4.9 mmol/L (-2.0-3.0)
[2024-04-02] MEDS: MIDAZOLAM DRIP 50 mg/50mL 50 ML IV ONE (01:20)
[2024-04-02] MEDS: MIDAZOLAM DRIP 50 mg/50mL 50 ML IV SCH (01:40)
[2024-04-02] MEDS: NOREPINEPHRINE 8 MG/250ML KIT 250 ML IV SCH (02:33)
[2024-04-02] MEDS: POTASSIUM CHL 20MEQ/100ML 100 ML IV ONE (03:19)
--- NOTE | 2024-04-02 03:53 | DVHHP2 ---
History of Present Illness Reason for Visit: Shortness of breath History of Present Illness 64-year-old female presents for evaluation of shortness for breath. Patient presented with worsening shortness for breath over the past three days. On arrival patient was saturating mid 70s on room air. She was placed on CPAP. Patient continued to be desaturating and tachypneic therefore she was intubated for airway protection. Past Medical History Diabetes mellitus, COPD, asthma, hypertension, mi, dyslipidemia Past Surgical History Hysterectomy, Family History Noncontributory Smoke: <1 pack per day ALCOHOL: occassional Drugs: None Lives: with Family Review of Systems Review of Systems Review of systems are currently negative otherwise addressed in HPI. Allergies: Coded Allergies: Amitriptyline (Verified Allergy, Unknown, 08/22/22) Fluoxetine (Verified Allergy, Unknown, 11/06/17) Gabapentin (Verified Allergy, Unknown, 11/06/17) NSAIDs (Verified Allergy, Unknown, 11/06/17) Medications Current Medications Medications Dose Ordered Sig/Aida Route Start Time Stop Time Status Last Admin Dose Admin Propofol 100 ml @ 1.47 mls/hr Q24H IV 04/01/24 23:15 04/01/24 23:20 1.47 MLS/HR Fentanyl Citrate 250 ml @ 2.5 mls/hr Q24H IV 04/02/24 00:15 04/02/24 00:45 2.5 MLS/HR Hydralazine HCl 10 mg Q6HP PRN IV 04/02/24 01:00 Albuterol 2.5 mg Q6HPRN PRN NEB 04/02/24 01:00 Ipratropium [place] 0.5 mg Q6HR NEB 04/02/24 06:00 Ceftriaxone Sodium 50 ml @ 100 mls/hr DAILY@09 IV 04/02/24 09:00 Azithromycin 250 ml @ 125 mls/hr DAILY IV 04/02/24 10:00 Diagnostic Test (Pha) 1 strip Q6HR 04/02/24 06:00 Insulin Human Regular Q6HR SC 04/02/24 06:00 Dextrose 50 ml UD PRN IV 04/02/24 01:00 Ondansetron HCl 4 mg Q4HP PRN IV 04/02/24 01:00 Enoxaparin Sodium 40 mg DAILY SC 04/02/24 10:00 Acetaminophen 650 mg Q6HP PRN PO 04/02/24 01:00 Nitroglycerin 0.4 mg Q5MINP PRN SL 04/02/24 01:00 Morphine Sulfate 2 mg Q30M PRN IV 04/02/24 01:00 Midazolam HCl 50 ml @ 5 mls/hr Q10H IV 04/02/24 01:15 04/02/24 01:40 5 MLS/HR Norepinephrine Bitartrate 250 ml @ 3.75 mls/hr Q24H IV 04/02/24 02:30 04/02/24 02:33 3.75 MLS/HR Exam Vital Signs Vital Signs Date Time Temp Pulse Resp B/P (MAP) Pulse Ox O2 Delivery O2 Flow Rate FiO2 04/02/24 03:00 65 18 131/78 (95) 04/02/24 02:03 96.8 97 40 96.8 04/01/24 23:15 Bi-Pap+ Exam Gen: 64-year-old female in mild distress Skin: Warm, dry, normal color and texture, no rash. HEENT: Normocephalic atraumatic, mucous membranes moist and pink. Neck: Cervical and supraclavicular nodes normal without enlargement, trachea is midline, thyroid gland is normal without masses. Pulmonary: Intubated, diminished breath sounds bilaterally Cardiac: Regular rate and rhythm. No murmur Abdomen: Soft, nontender, nondistended, bowel sounds present all 4 quadrants, no guarding, no rigidity, no organomegaly. Extremities: No cyanosis, clubbing, no edema Neuro: Sedated Labs/Xrays ORDERING PHYSICIAN: ESPERANZA MOLINA MD PROCEDURE(s): CXR1 - CHEST XRAY 1 VIEW REASON: post intubation ORDER NUMBER(s): [id number], ACCESSION NUMBER(s): [id number] CHEST RADIOGRAPH Indication: post intubation Technique: Single frontal view of the chest was obtained Comparison: XY CHEST PORTABLE on DOS: 04/01/24, XY CHEST XRAY 1 VIEW on DOS: 03/17/24, XY CHEST PORTABLE on DOS: 03/13/24 Findings/ IMPRESSION: Left IJ CVC with tip terminating near the cavoatrial junction. Endotracheal tube projected 3.5 cm superior to the pedro. Enteric tube coursing towards the GE junction without visualization of side port or catheter tip. No focal consolidation or pneumothorax. Bilateral diffuse interstitial opacities concerning for possible pulmonary edema. No pneumothorax. No pleural effusions. Labs Test 04/02/24 01:10 04/01/24 22:48 04/01/24 20:28 04/01/24 20:23 Range/Units Blood Gas Specimen Type Arterial Blood Gas Sample Site Right radial Blood Gas Patient Temperature 37.0 Arterial Blood Date Drawn Arterial Blood pH 7.303 L 7.350-7.450 Arterial Blood Partial Pressure CO2 44.2 32.0-45.0 mmHg Arterial Blood Partial Pressure O2 68.9 L 83.0-108.0 mmHg Arterial Blood HCO3 21.4 21.0-28.0 mmol/L Arterial Blood Oxygen Saturation 92.1 L 94.0-98.0 % Arterial Blood Base Excess -4.9 L -2.0-3.0 mmol/L Arterial Blood Oxyhemoglobin 91.0 L 94.0-98.0 % Arterial Blood Carboxyhemoglobin 0.9 0.5-1.5 % Arterial Blood Methemoglobin 0.3 0.0-1.5 % Quinton Test Modified Blood Gas Total Hemoglobin 12.70 12.0-16.0 g/dL Blood Gas Set Respiration Rate 18.0 Blood Gas Modality Vent - ac FiO2 % 30.0 Blood Gas Tidal Volume 450.0 Blood Gas PEEP or CPAP 5.0 Lactic Acid Level 4.6 *H 0.4-2.0 mmol/L Troponin I High Sensitivity 5 </=34 ng/L White Blood Count 10.4 4.4-10.8 10^3/uL Red Blood Count 3.94 L 4.0-5.20 10^6/uL Hemoglobin 11.4 L 12.2-16.2 g/dL Hematocrit 36.1 36.0-46.0 % Mean Corpuscular Volume 91.5 80.0-100.0 fL Mean Corpuscular Hemoglobin 29.0 28.0-32.0 pg Mean Corpuscular Hemoglobin Concent 31.7 L 32.0-36.0 g/dL Red Cell Distribution Width 17.2 H 11.8-14.3 % Platelet Count 367 140-450 10^3/uL Mean Platelet Volume 9.1 6.9-10.8 fL Neutrophils (%) (Auto) 58.5 37.0-80.0 % Lymphocytes (%) (Auto) 26.7 10.0-50.0 % Monocytes (%) (Auto) 12.0 0.0-12.0 % Eosinophils (%) (Auto) 1.1 0.0-7.0 % Basophils (%) (Auto) 1.7 0.0-2.0 % Neutrophils # (Auto) 6.1 1.6-8.6 10 ^3/uL Lymphocytes # (Auto) 2.8 0.4-5.4 10 ^3/uL Monocytes # (Auto) 1.2 0-1.3 10 ^3/uL Eosinophils # (Auto) 0.1 0-0.8 10 ^3/uL Basophils # (Auto) 0.2 0-0.2 10 ^3/uL Nucleated Red Blood Cells 0.0 % Sodium Level 147 H 136-145 mmol/L Potassium Level 3.0 L 3.5-5.1 mmol/L Chloride Level 111 H 98-107 mmol/L Carbon Dioxide Level 26 20-31 mmol/L Anion Gap 10 5-15 Blood Urea Nitrogen 13 9-23 mg/dL Creatinine 0.77 0.550-1.02 mg/dL Glomerular Filtration Rate Calc 86 >90 mL/min BUN/Creatinine Ratio 16.9 10.0-20.0 Serum Glucose 85 74-106 mg/dL Calcium Level 9.5 8.7-10.4 mg/dL Total Bilirubin 0.3 0.2-1.0 mg/dL Aspartate Amino Transferase (AST) 12 L 13-40 U/L Alanine Aminotransferase (ALT) < 9 7-40 U/L Alkaline Phosphatase 91 46-116 U/L B-Type Natriuretic Peptide 133.62 0-100 pg/mL Total Protein 6.3 5.7-8.2 g/dL Albumin 3.8 3.2-4.8 g/dL Blood Gas Spontaneous Rate 29 Blood Gas Spontaneous Tidal Volume 524 Blood Gas EPAP 5 Blood Gas IPAP 12 Assessment/Plan Assessment/Plan Assessment Acute on chronic hypoxic respiratory failure, intubated COPD Diabetes mellitus Questionable pneumonia Hypokalemia Plan Admit the patient to ICU to hospitalist Rocephin/azithromycin Med nebs Resume home medications Continue treatment per orders. Total care time excluding procedures performed this 55 minutes. Plan discussed with: Other My Orders Orders - KIRILL HERNANDEZ AGACNP Procedure Category Date Status Time Hydralazine Injection PHA 04/02/24 In Process (Apresoline Inject 01:00 Albuterol Medneb PHA 04/02/24 In Process (Ventolin Medneb) 01:00 Ipratropium Medneb PHA 04/02/24 In Process (Atrovent Medneb) 06:00 Blood Culture WINSOME 04/02/24 In Process 00:48 Ceftriaxone 1gm/50ml PHA 04/02/24 In Process D5w (Rocephin) 09:00 Azithromycin 500mg/ PHA 04/02/24 In Process 250ml (Zithromax 50 10:00 Glucose Blood PHA 04/02/24 In Process (Accu-Chek Comfort 06:00 Insulin R (Human) PHA 04/02/24 In Process (Insulin R) 06:00 Dextrose 50% Syringe PHA 04/02/24 In Process 01:00 Admit ADMIT 04/02/24 Transmitted 00:48 Ondansetron Hcl PHA 04/02/24 In Process (Zofran) 01:00 Enoxaparin Sodium PHA 04/02/24 In Process (Lovenox) 10:00 Complete Blood Count LAB 04/03/24 Verified 04:00 Comprehensive LAB 04/03/24 Verified Metabolic Panel 04:00 Condition: Critical BRIA 04/02/24 In Process 00:48 Condition: Unstable BRIA 04/02/24 In Process 00:48 Acetaminophen Tablet PHA 04/02/24 In Process (Tylenol Tablet) 01:00 Maintain Bed Rest BRIA 04/02/24 In Process 00:48 Sequential BRIA 04/02/24 In Process Compression Device Nitroglycerin PHA 04/02/24 In Process Sublingual (Ntrostat 01:00 Morphine Sulfate PHA 04/02/24 In Process Injection 01:00 Stat Ekg For Chest BRIA 04/02/24 In Process Pain 00:48 Notify Md Of Changes BRIA 04/02/24 In Process From Base 00:48 Enterprise Resource Planning Consultant For [facility] 04/02/24 In Process 24 Hours 00:48 Emergency Dysrhythmia BRIA 04/02/24 In Process Protocol 00:48 Rhythm Strips Once BRIA 04/02/24 In Process Every Shift 00:48 Oxygen By Nasal RT 04/02/24 Transmitted Cannula 00:48 Midazolam Drip 50 PHA 04/02/24 In Process Mg/50ml (Versed Drip 5 01:15 Communication Order ORDERS 04/02/24 Transmitted 01:07 Date of Service: Apr 02, 2024 Billing Provider: KIRILL HERNANDEZ Common Visit Codes: [id number] CARE 30-74 MIN KIRILL HERNANDEZ Apr 02, 2024 03:53
[2024-04-02] MEDS: hydrALAZINE HCL 20 MG/ML VL IV PRN (05:00)
[2024-04-02] MEDS: IPRATROPIUM BROM 0.5 MG/2.5ML INH SOL NEB SCH ×2 (05:59→14:30)
[2024-04-02] MEDS: ALBUTEROL SULF 2.5 MG/0.5ML(0.5%) NEB SOLN NEB PRN (05:59)
--- NOTE | 2024-04-02 06:44 | ECG ---
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
[2024-04-02 06:50] LABS: Rapid Influenza A Positive (Negative)
[2024-04-02 06:51] LABS: COVID19 ANTIGEN SOFIA FIA NEGATIVE (NEGATIVE); Rapid Influenza B Positive (Negative)
[2024-04-02] MEDS: ACCU-CHEK COMFORT CURVE STRIP VI SCH (07:17)
[2024-04-02 07:47] LABS: Base Excess -0.4 mmol/L (-2.0-3.0)
[2024-04-02] MEDS: cefTRIAXone 1GM/50ML D5W 50 ML IV SCH (09:34)
[2024-04-02] MEDS: ENOXAPARIN SOD 40 MG/0.4 ML SYRINGE SC SCH (10:54)
[2024-04-02] MEDS: AZITHROMYCIN 500MG/ 250ML 250 ML IV SCH (10:55)
--- NOTE | 2024-04-02 11:11 | DVHPN2 ---
Assessment/Plan Assessment/Plan ICU progress note Subjective 64-year-old female with COPD, asthma, CAD admitted for shortness of breath, found to be saturating on 70%, initially placed on BiPAP with no significant improvement, intubated and placed on mechanical ventilation. Objective Physical exam Intubated and mechanically ventilated Withdraw to pain PERLLA Clear breath sounds, no wheezing S1 S2 RRR no murmur Abdomen soft nontender Evans in place No LE edema Vents VC/AC 400 18 40% 5 Drips Versed 5 Propofol 50 Fentanyl 50 Levophed 6 Lab Lact 4.8 Imaging CXR interstitial opacity, left IJ cath, ET tube and NG tube in place Point of care ultrasound done today and interpreted by me Cardiac: No pericardial effusion, hyperdynamic heart, grossly normal valves, grossly normal heart chambers, IVC < 2cm with <50% excursion in an intubated patient Lung: No B-lines, no pleural effusion Assessment and plan Acute hypoxic respiratory failure requiring mechanical ventilation Distributive shock sedation related Asthma exacerbation CAD Diabetes mellitus Influenza A PNA Influenza B PNA Lactic acidosis Admit to ICU Continue with sedation and mechanical ventilation Wean off propofol, c/w versed and fentanyl Daily SAT Tamiflu Solumedrol Breathing treatment Ceftriaxone and azithromycin c/w levophed to maintain map >65 IVF bolus Insulin sliding scale and fingerstick q.6 Strict ins and out Daily weight Lines L IJ TLC Evans cath Maintain potassium of 4, phosphate of 3 and magnesium of 2 Diet tube feeding GI prophylaxis protonix DVT prophylaxis lovenox Condition critical Prognosis poor 100 minutes critical care time spent on this patient including evaluation, chart review, formulating plan and communication with team, excluding any procedures or point of care imaging Plan discussed with: Patient Date of Service: Apr 02, 2024 Billing Provider: JOYCELYN TIDWELL MD Common Visit Codes: [id number] CARE 30-74 MIN, [id number] CARE-EACH +30MIN, PROCEDURE ONLY (Cardiac point of care ultrasound [id number]) JOYCELYN TIDWELL MD Apr 02, 2024 11:11
[2024-04-02] MEDS: SODIUM CHLORIDE 0.9% 1,000 ML IV ONE ×2 (11:36→17:43)
[2024-04-02] MEDS: methylPREDNISolone SOD SUCC 40 MG/ML VL IV SCH (11:42)
[2024-04-02] MEDS: InsuLIN REG 1unit/0.01ml Soln (100units/ml) SC SCH (12:08)
[2024-04-02] MEDS: ALBUTEROL SULF 2.5 MG/0.5ML(0.5%) NEB SOLN NEB SCH (14:31)
[2024-04-02] MEDS: OSELTAMIVIR 30MG/5ML ORAL SUSP GT SCH (14:46)
[2024-04-02 15:02] LABS: Lactic Acid w/Reflex 6.4 mmol/L (0.4-2.0)
[2024-04-02] MEDS: OSELTAMIVIR 75MG/5ML ORAL SUSP GT ONE (16:46)
[2024-04-02] MEDS: LOSARTAN POTASSIUM 50 MG TAB PO ONE (17:12)
--- NOTE | 2024-04-02 22:58 | DVHINCON2 ---
Date of service: Apr 02, 2024 Referring Physician Carroll Hobbs MD Reason for Consultation Acute on chronic hypoxic respiratory failure requiring mechanical ventilator History of Present Illness A 64-year-old woman with past medical history of COPD, asthma, diabetes mellitus, hypertension, myocardial infarction, and dyslipidemia who presented to ED on 04/01/24 for evaluation of shortness for breath. Patient presented with worsening shortness for breath over the past three days. On arrival patient was saturating mid 70s on room air. She was placed on CPAP. Patient continued to desaturate and was tachypneic, therefore she was intubated for airway protection. Patient was admitted for further care, and pulmonary consultation is requested for evaluation and management of acute on chronic hypoxic respiratory failure requiring mechanical ventilator. Review of Systems: 14-point review of systems negative unless otherwise noted above. Past Medical History: Diabetes mellitus, COPD, asthma, hypertension, myocardial infarction, and dyslipidemia Past Surgical History: Hysterectomy, Medications: Reviewed. Allergies: Amitriptyline Fluoxetine Gabapentin NSAIDs Family History: No family history of premature CAD. No family history of lung disorders. Social History: Smoker, <1 pack per day. Occasional alcohol use. No illicit drug use. Family History: Patient reports no known family medical history. Allergies: Coded Allergies: Amitriptyline (Verified Allergy, Unknown, 08/22/22) Fluoxetine (Verified Allergy, Unknown, 11/06/17) Gabapentin (Verified Allergy, Unknown, 11/06/17) NSAIDs (Verified Allergy, Unknown, 11/06/17) Home Meds Active Scripts Metformin Hydrochloride (Metformin Hcl) 500 Mg Tab, 1 TAB PO BID, #60 TAB 3 Refills Prov:PAULA OCHOA MD 04/15/23 Reported Medications Simvastatin (Simvastatin) 40 Mg Tab, 1 TAB PO DAILY for 90 Days, #90 03/04/24 Losartan Potassium (Losartan Potassium) 50 Mg Tab, 1 TAB PO DAILY for 90 Days, #90 03/04/24 Celecoxib (Celebrex) 200 Mg Cap, 1 CAP PO BID PRN for PAIN for 30 Days, #60 03/04/24 Cbfktllsgoa-Ebsafltvbeec-Bvdar (Trelegy Ellipta 100-62.5-25 Mcg/INH) 1 Aer Aer, 1 PUFF IN DAILY for 30 Days, #60 03/04/24 Albuterol Sulfate (Albuterol Sulfate Hfa) 108 Mcg/Act Aer, 1 PUFF IN Q4-6HR PRN for WHEEZING for 33 Days, #18 03/04/24 Trazodone Hcl (Trazodone Hcl) 100 Mg Tab, 1 TAB PO HS PRN for FOR INSOMNIA for 30 Days, #30 03/04/24 Cholecalciferol (VITAMIN D3) 2,000 Unit Tab, 1 TAB PO DAILY for 30 Days, #30 03/04/24 Methocarbamol (Methocarbamol) 500 Mg Tab, 1 TAB PO BID for 30 Days, #60 03/04/24 Current Medications Current Medications Medications (Trade) Dose Ordered Sig/Aida Route PRN Reason Start Time Stop Time Status Last Admin Propofol 100 ml @ 1.47 mls/hr Q24H IV 04/01/24 23:15 04/02/24 12:09 Fentanyl Citrate 250 ml @ 2.5 mls/hr Q24H IV 04/02/24 00:15 04/02/24 00:45 Hydralazine HCl (Apresoline Injection) 10 mg Q6HP PRN IV SBP>150 04/02/24 01:00 04/02/24 11:06 DC 04/02/24 05:00 Albuterol (Ventolin Medneb) 2.5 mg Q6HPRN PRN NEB SHORTNESS OF BREATH 04/02/24 01:00 04/02/24 11:06 DC 04/02/24 05:59 Ipratropium [place] (Atrovent Medneb) 0.5 mg Q6HR NEB 04/02/24 06:00 04/02/24 12:11 DC 04/02/24 05:59 Ceftriaxone Sodium 50 ml @ 100 mls/hr DAILY@09 IV 04/02/24 09:00 04/02/24 09:34 Azithromycin 250 ml @ 125 mls/hr DAILY IV 04/02/24 10:00 04/02/24 10:55 Diagnostic Test (Pha) (Accu-Chek Comfort Curve T) 1 strip Q6HR 04/02/24 06:00 04/02/24 18:04 Insulin Human Regular (InsuLIN R) Q6HR SC 04/02/24 06:00 04/02/24 12:08 Dextrose 50 ml UD PRN IV Blood Sugar LESS THAN 60 04/02/24 01:00 Ondansetron HCl (Zofran) 4 mg Q4HP PRN IV NAUSEA / VOMITING 04/02/24 01:00 04/02/24 11:06 DC Enoxaparin Sodium (Lovenox) 40 mg DAILY SC 04/02/24 10:00 04/02/24 10:54 Acetaminophen (Tylenol Tablet) 650 mg Q6HP PRN PO PAIN SCALE 1-3 OR TEMP>100.4 04/02/24 01:00 Nitroglycerin (Ntrostat Sublingual) 0.4 mg Q5MINP PRN SL FOR CHEST PAIN 04/02/24 01:00 04/02/24 11:06 DC Morphine Sulfate 2 mg Q30M PRN IV FOR CHEST PAIN 04/02/24 01:00 04/02/24 11:06 DC Midazolam HCl 50 ml @ 5 mls/hr Q10H IV 04/02/24 01:15 04/02/24 21:35 Norepinephrine Bitartrate 250 ml @ 3.75 mls/hr Q24H IV 04/02/24 02:30 04/02/24 15:52 DC 04/02/24 13:01 Methylprednisolone Sodium Succinate (Solu Medrol) 40 mg DAILY IV 04/02/24 11:15 04/02/24 11:42 Albuterol (Ventolin Medneb) 2.5 mg Q4HR NEB 04/02/24 14:00 04/02/24 21:56 Ipratropium [place] (Atrovent Medneb) 0.5 mg Q4HR NEB 04/02/24 14:00 04/02/24 21:56 Pantoprazole Sodium (Protonix) 40 mg DAILY IV 04/03/24 10:00 Oseltamivir Phosphate (Tamiflu Suspension) 30 mg BID GT 04/02/24 22:00 04/06/24 21:59 04/02/24 14:46 Losartan Potassium (Cozaar Tablet) 50 mg DAILY PO 04/03/24 10:00 Enalaprilat (Vasotec Injection) 0.625 mg Q6HP PRN IV SBP>170 04/02/24 16:00 Vital Signs Vital Signs Date Time Temp Pulse Resp B/P (MAP) Pulse Ox O2 Delivery O2 Flow Rate FiO2 04/02/24 21:56 86 18 116/63 (80) 99 30 04/02/24 07:30 Mechanical Ventilator+ 04/02/24 02:03 96.8 96.8 04/01/24 20:10 Physical Exam Gen.: Patient lying in bed in medical ICU. Sedated, intubated on mechanical ventilator. Head: Normocephalic, atraumatic. Eyes: PERRLA. Ears: Normal external anatomy. Throat: Endotracheal tube and orogastric tube in place. Neck: Supple, trachea midline. Chest: Transmitted breath sounds bilaterally. Decreased air entry bilaterally. No wheezing. Bibasilar crackles. Cardiovascular: Positive S1, positive S2. Regular rate and rhythm. Abdomen: Positive bowel sounds in all 4 quadrants. Soft, nontender, nondistended. : Evans in place. Normal external genitalia. Rectal: Deferred. Skin: Warm, dry. Intact. Extremities: 2+ radial pulses bilaterally. No lower extremity edema. Neuro: Sedated. Labs/Diagnostic Data Labs Test 04/02/24 18:01 04/02/24 16:10 04/02/24 07:39 04/02/24 05:19 Range/Units POC Glucose 108 H 70-106 mg/dl Lactic Acid Level 4.5 *H 0.4-2.0 mmol/L Blood Gas Specimen Type Arterial Blood Gas Sample Site Right radial Blood Gas Patient Temperature 37.0 Arterial Blood Date Drawn [id number] Arterial Blood pH 7.410 7.350-7.450 Arterial Blood Partial Pressure CO2 38.8 32.0-45.0 mmHg Arterial Blood Partial Pressure O2 103.6 83.0-108.0 mmHg Arterial Blood HCO3 24.0 21.0-28.0 mmol/L Arterial Blood Oxygen Saturation 98.1 H 94.0-98.0 % Arterial Blood Base Excess -0.4 -2.0-3.0 mmol/L Arterial Blood Oxyhemoglobin 96.8 94.0-98.0 % Arterial Blood Carboxyhemoglobin 1.0 0.5-1.5 % Arterial Blood Methemoglobin 0.3 0.0-1.5 % [place] Test Modified Blood Gas Total Hemoglobin 12.00 12.0-16.0 g/dL Blood Gas Set Respiration Rate 18.0 Blood Gas Modality Vent - ac FiO2 % 40.0 Blood Gas Tidal Volume 450.0 Blood Gas PEEP or CPAP 5.0 Influenza Type A Antigen Positive Negative Influenza Type B Antigen Positive Negative SARS-CoV-2 Antigen (Rapid) Negative NEGATIVE Test 04/02/24 01:18 04/01/24 22:48 04/01/24 20:28 04/01/24 20:23 Range/Units D-Dimer, Quantitative 0.89 H 0.0-0.49 mg/L FEU Troponin I High Sensitivity 5 </=34 ng/L White Blood Count 10.4 4.4-10.8 10^3/uL Red Blood Count 3.94 L 4.0-5.20 10^6/uL Hemoglobin 11.4 L 12.2-16.2 g/dL Hematocrit 36.1 36.0-46.0 % Mean Corpuscular Volume 91.5 80.0-100.0 fL Mean Corpuscular Hemoglobin 29.0 28.0-32.0 pg Mean Corpuscular Hemoglobin Concent 31.7 L 32.0-36.0 g/dL Red Cell Distribution Width 17.2 H 11.8-14.3 % Platelet Count 367 140-450 10^3/uL Mean Platelet Volume 9.1 6.9-10.8 fL Neutrophils (%) (Auto) 58.5 37.0-80.0 % Lymphocytes (%) (Auto) 26.7 10.0-50.0 % Monocytes (%) (Auto) 12.0 0.0-12.0 % Eosinophils (%) (Auto) 1.1 0.0-7.0 % Basophils (%) (Auto) 1.7 0.0-2.0 % Neutrophils # (Auto) 6.1 1.6-8.6 10 ^3/uL Lymphocytes # (Auto) 2.8 0.4-5.4 10 ^3/uL Monocytes # (Auto) 1.2 0-1.3 10 ^3/uL Eosinophils # (Auto) 0.1 0-0.8 10 ^3/uL Basophils # (Auto) 0.2 0-0.2 10 ^3/uL Nucleated Red Blood Cells 0.0 % Sodium Level 147 H 136-145 mmol/L Potassium Level 3.0 L 3.5-5.1 mmol/L Chloride Level 111 H 98-107 mmol/L Carbon Dioxide Level 26 20-31 mmol/L Anion Gap 10 5-15 Blood Urea Nitrogen 13 9-23 mg/dL Creatinine 0.77 0.550-1.02 mg/dL Glomerular Filtration Rate Calc 86 >90 mL/min BUN/Creatinine Ratio 16.9 10.0-20.0 Serum Glucose 85 74-106 mg/dL Calcium Level 9.5 8.7-10.4 mg/dL Total Bilirubin 0.3 0.2-1.0 mg/dL Aspartate Amino Transferase (AST) 12 L 13-40 U/L Alanine Aminotransferase (ALT) < 9 7-40 U/L Alkaline Phosphatase 91 46-116 U/L B-Type Natriuretic Peptide 133.62 0-100 pg/mL Total Protein 6.3 5.7-8.2 g/dL Albumin 3.8 3.2-4.8 g/dL Blood Gas Spontaneous Rate 29 Blood Gas Spontaneous Tidal Volume 524 Blood Gas EPAP 5 Blood Gas IPAP 12 Assessment Impression: Acute on chronic hypoxic respiratory failure 2/2 Asthma exacerbation On mechanical ventilator Asthma exacerbation Nicotine dependence COPD DM type II Hypokalemia Lactic acidosis Influenza A and B positive Septic shock vs Distributive component. Atelectasis Plan: s/p intubation on mechanical ventilator. CXR (04/01) image and report reviewed. Devices in place. Bilateral diffuse interstitial opacities concerning for possible pulmonary edema. No pneumothorax. No pleural effusions. ABG reviewed, notable for acidemia. On AC mode; RR 18, VT 450, PEEP 5, Fio2 40% Titrate FIO2 to keep O2 saturation above 90%. VAP bundle. Daily ABG and CXR while intubated Sedate for ventilator synchrony - On Propofol, Versed, Fentanyl. Start Tamiflu course for influenza Continue antibiotics. On pressors for hemodynamic support Levophed 6 mcg/min Titrate to keep mean arterial pressure greater than 65 mmHg. Monitor renal function Monitor electrolytes. Supplement as necessary. Monitor ins and outs. GI prophylaxis. DVT prophylaxis. Prognosis: Poor given patient's multiple co-morbidities. Condition: Critical Rest of plan per hospitalist and other consultants. A total of 36 minutes of critical care time was spent reviewing the patient record, examining the patient, making a diagnostic and therapeutic plan, discussing this plan with the medical personnel, following up on diagnostic studies and following the patient for clinical stability excluding any and all procedures. At least 50% of this time was spent in direct, [id number] contact. Thank you Dr. Carroll Hobbs MD, for allowing me to participate in this patient's care. Further recommendations will depend on the patient's clinical course. Please do not hesitate to contact me if you have any questions or concerns. This medical document was created using an electronic medical record system with [email or web address] dictation system. Although these documentations are being carefully reviewed, there may still be some phonetic and typographical changes. The errors are purely typographical, due to imperfection on the software program, and do not reflect any compromise in the patient's medical care. Plan discussed with: Other (N[place]AMA Churchill/MD Hobbs) SYLVIE RAMIREZ MD Apr 02, 2024 22:58
[2024-04-03] VITALS (32 sets, daily range): BP systolic 80–162; BP diastolic 42–78; PULSE 66–97; RESP 13–29; TEMP 96.9–98.2; O2SAT 95–100
[2024-04-03] MEDS: ALBUMIN 5% 250 ML IV ONE (03:30)
[2024-04-03 05:32] LABS: Basophils # (auto) 0 10 ^3/uL (0-0.2); Basophils % (auto) 0.2 % (0.0-2.0); Eosinophils # (auto) 0 10 ^3/uL (0-0.8); Hematocrit 28.2 % (36.0-46.0); Hemoglobin 9.1 g/dL (12.2-16.2); Lymphocytes # (auto) 1.6 10 ^3/uL (0.4-5.4); Lymphocytes % (auto) 15.2 % (10.0-50.0); Mean Corpuscular Hemoglobin 29.4 pg (28.0-32.0); Mean Corpuscular Hgb Conc. 32.1 g/dL (32.0-36.0); Mean Corpuscular Volume 91.4 fL (80.0-100.0); Monocytes # (auto) 1.3 10 ^3/uL (0-1.3); Monocytes % (auto) 11.8 % (0.0-12.0); Neutrophils # (auto) 7.8 10 ^3/uL (1.6-8.6); Neutrophils % (auto) 72.8 % (37.0-80.0); Platelet Count (auto) 234 10^3/uL (140-450); Red Blood Cells 3.09 10^6/uL (4.0-5.20); Red Cell Distribution Width 17.3 % (11.8-14.3); White Blood Cell 10.7 10^3/uL (4.4-10.8)
[2024-04-03 05:41] LABS: Albumin 3.3 g/dL (3.2-4.8); Alkaline Phosphatase 60 U/L (46-116); Anion Gap 7 (5-15); BUN/Creatinine Ratio 15.9 (10.0-20.0); Calcium 9.2 mg/dL (8.7-10.4); Carbon Dioxide 26 mmol/L (20-31); Glucose 90 mg/dL (74-106); Magnesium 1.7 mg/dL (1.6-2.6); Potassium 3.8 mmol/L (3.5-5.1); Sodium 145 mmol/L (136-145)
[2024-04-03 05:42] LABS: Bilirubin, Total 0.2 mg/dL (0.2-1.0); Phosphorus 3.2 mg/dL (2.4-5.1)
[2024-04-03 06:27] LABS: Alanine Aminotransferase < 9 U/L (7-40); Aspartate Aminotransferase < 8 U/L (13-40); Blood Urea Nitrogen 7 mg/dL (9-23); Chloride 112 mmol/L (98-107); Total Protein 5.3 g/dL (5.7-8.2)
[2024-04-03 06:33] LABS: Lactic Acid w/Reflex 3.4 mmol/L (0.4-2.0)
[2024-04-03] MEDS: DEXTROSE (50%) 50ML SYRG IV PRN (07:49)
[2024-04-03] MEDS: NOREPINEPHRINE 8 MG/250ML KIT 250 ML IV SCH (08:30)
[2024-04-03] MEDS: D5W/LACTATED RINGERS 1,000 ML IV SCH (09:03)
[2024-04-03] MEDS: MAGNESIUM SULFATE 1GM/100ML 100 ML IV SCH (09:06)
[2024-04-03] MEDS: PANTOPRAZOLE 40 MG/10 ML VIAL INJ IV SCH (10:00)
[2024-04-03] MEDS ORDERED: LOSARTAN POTASSIUM 50 MG TAB PO SCH (10:00)
--- NOTE | 2024-04-03 10:52 | DVHPN2 ---
Assessment/Plan Assessment/Plan ICU progress note Subjective 64-year-old female with COPD, asthma, CAD admitted for shortness of breath, found to be saturating on 70%, initially placed on BiPAP with no significant improvement, intubated and placed on mechanical ventilation. Patient seen by me today during rounds. waking up but not following command, in sync with vent. for daily SAT/SBT. possible extubation Objective Physical exam Intubated and mechanically ventilated Withdraw to pain PERLLA Clear breath sounds, no wheezing S1 S2 RRR no murmur Abdomen soft nontender Evans in place No LE edema Vents VC/AC 400 18 40% 5 Drips Versed 2 Fentanyl 50 Lab Lact 4.8 Imaging CXR interstitial opacity, left IJ cath, ET tube and NG tube in place Assessment and plan Acute hypoxic respiratory failure requiring mechanical ventilation Distributive shock sedation related Asthma exacerbation CAD Diabetes mellitus Influenza A PNA Influenza B PNA Lactic acidosis Admit to ICU Continue with sedation and mechanical ventilation Daily SAT/SBT Tamiflu Solumedrol Breathing treatment Ceftriaxone and azithromycin c/w levophed to maintain map >65 IVF bolus Insulin sliding scale and fingerstick q.6 Strict ins and out Daily weight Lines L IJ TLC Evans cath Maintain potassium of 4, phosphate of 3 and magnesium of 2 Diet tube feeding GI prophylaxis protonix DVT prophylaxis lovenox Condition critical Prognosis poor 109 minutes critical care time spent on this patient including evaluation, chart review, formulating plan and communication with team, excluding any procedures or point of care imaging Plan discussed with: Other My Orders Orders - JOYCELYN TIDWELL MD Procedure Category Date Status Time Strict I & O BRIA 04/02/24 In Process 11:02 Daily Weight BRIA 04/02/24 In Process 11:02 Methylprednisolone PHA 04/02/24 In Process Sod Succ (Solu Medrol 11:15 Albuterol Medneb PHA 04/02/24 In Process (Ventolin Medneb) 14:00 Ipratropium Medneb PHA 04/02/24 In Process (Atrovent Medneb) 14:00 Tube Feeding DIET 04/02/24 Transmitted Lunch Urinalysis LAB 04/02/24 Logged 11:06 Drug Screen LAB 04/02/24 Logged 11:06 Mrsa Screen WINSOME 04/02/24 In Process 11:06 Pantoprazole PHA 04/03/24 In Process (Protonix) 10:00 *Consult CONS 04/02/24 Transmitted / 14:20 Enalaprilat Injection PHA 04/02/24 In Process (Vasotec Injection 16:00 D5w/Lactated Ringers PHA 04/03/24 In Process (D5wlr) 08:30 Magnesium Sulfate PHA 04/03/24 In Process 1gm/100ml 09:00 Norepinephrine 8 PHA 04/03/24 In Process Mg/250ml Kit 08:30 Communication Order ORDERS 04/03/24 Transmitted 08:55 Communication Order ORDERS 04/03/24 Transmitted 08:56 Date of Service: Apr 03, 2024 Billing Provider: JOYCELYN TIDWELL MD Common Visit Codes: [id number]-[id number] CARE 30-74 MIN, [id number] CARE-EACH +30MIN JOYCELYN TIDWELL MD Apr 03, 2024 10:52
[2024-04-03 22:43] LABS: Lactic Acid w/Reflex 2.1 mmol/L (0.4-2.0)
--- NOTE | 2024-04-03 22:59 | DVHPN2 ---
Progress Note - Dictate Date Seen: Apr 03, 2024 Medical Necessity Reason Pt with a Central, PICC or Fol: Yes The following are medically ne: Phillips Catheter Reason for phillips catheter: Strict I&O Subjective Patient seen and examined at bedside. intubated on mechanical ventilator. Overnight events reviewed. vital signs Vital Sign Date Time Temp Pulse Resp B/P (MAP) Pulse Ox O2 Delivery O2 Flow Rate FiO2 04/03/24 20:22 86/43 04/03/24 20:15 74 18 97 30 04/03/24 18:45 96.9 96.9 04/02/24 20:00 Mechanical Ventilator+ 04/01/24 20:10 Total Intake and Output 04/02/24 04/02/24 04/03/24 15:00 23:00 07:00 Intake Total 1389.1 ml 126.60 ml 55.72 ml Output Total 1000 ml Balance 1389.1 ml -873.40 ml 55.72 ml medications Current Medications Medications Dose Ordered Sig/Aida Route Start Time Stop Time Status Last Admin Dose Admin Propofol 100 ml @ 1.47 mls/hr Q24H IV 04/01/24 23:15 04/02/24 23:22 8.82 MLS/HR Fentanyl Citrate 250 ml @ 2.5 mls/hr Q24H IV 04/02/24 00:15 04/03/24 12:47 2.5 MLS/HR Ceftriaxone Sodium 50 ml @ 100 mls/hr DAILY@09 IV 04/02/24 09:00 04/03/24 09:07 100 MLS/HR Azithromycin 250 ml @ 125 mls/hr DAILY IV 04/02/24 10:00 04/03/24 10:00 125 MLS/HR Diagnostic Test (Pha) 1 strip Q6HR 04/02/24 06:00 04/03/24 18:07 1 STRIP Insulin Human Regular Q6HR SC 04/02/24 06:00 04/03/24 18:13 3 UNITS Dextrose 50 ml UD PRN IV 04/02/24 01:00 04/03/24 07:49 50 ML Enoxaparin Sodium 40 mg DAILY SC 04/02/24 10:00 04/03/24 10:00 40 MG Acetaminophen 650 mg Q6HP PRN PO 04/02/24 01:00 Midazolam HCl 50 ml @ 5 mls/hr Q10H IV 04/02/24 01:15 04/03/24 19:06 1 MLS/HR Methylprednisolone Sodium Succinate 40 mg DAILY IV 04/02/24 11:15 04/03/24 10:00 40 MG Albuterol 2.5 mg Q4HR NEB 04/02/24 14:00 04/03/24 21:57 2.5 MG Ipratropium [place] 0.5 mg Q4HR NEB 04/02/24 14:00 04/03/24 21:57 0.5 MG Pantoprazole Sodium 40 mg DAILY IV 04/03/24 10:00 04/03/24 10:00 40 MG Oseltamivir Phosphate 30 mg BID GT 04/02/24 22:00 04/06/24 21:59 04/03/24 22:19 30 MG Enalaprilat 0.625 mg Q6HP PRN IV 04/02/24 16:00 Dextrose/Lactated Ringer's 1,000 ml @ 100 mls/hr Q10H IV 04/03/24 08:30 04/03/24 19:05 100 MLS/HR Norepinephrine Bitartrate 250 ml @ 3.75 mls/hr Q24H IV 04/03/24 08:30 04/03/24 20:22 3.75 MLS/HR Dexmedetomidine HCl 400 mcg/ Dextrose 100 ml @ 2.45 mls/hr Q24H IV 04/03/24 11:30 04/03/24 11:38 2.45 MLS/HR objective Gen.: Patient lying in bed in medical ICU. Intubated on mechanical ventilator. Head: Normocephalic, atraumatic. Eyes: PERRLA. Ears: Normal external anatomy. Throat: Endotracheal tube and orogastric tube in place. Neck: Supple, trachea midline. Chest: Transmitted breath sounds bilaterally. Decreased air entry bilaterally. No wheezing. Bibasilar crackles. Cardiovascular: Positive S1, positive S2. Regular rate and rhythm. Abdomen: Positive bowel sounds in all 4 quadrants. Soft, nontender, nondistended. : Phillips in place. Normal external genitalia. Rectal: Deferred. Skin: Warm, dry. Intact. Extremities: 2+ radial pulses bilaterally. No lower extremity edema. Neuro: Off sedation laboratory and microbiology Laboratory Tests 04/03/24 04:55 Test 04/03/24 04:55 Range/Units Serum Glucose 90 74-106 mg/dL Assessment/Plan Impression: Acute on chronic hypoxic respiratory failure 2/2 Asthma exacerbation On mechanical ventilator Asthma exacerbation Nicotine dependence COPD DM type II Hypokalemia Lactic acidosis Influenza A and B positive Septic shock vs Distributive component. Atelectasis Events: Remains on vent support On AC mode; RR 18, VT 450, PEEP 5, Fio2 30% Off sedation. CPAP trial once patient is awake, alert. Will use Precedex if necessary for agitation. IV fluid hydration Magnesium supplementation Monitor renal function. Monitor electrolytes. Supplement as necessary. Labs and imaging reviewed. Rest of plan as noted below. Plan: s/p intubation on mechanical ventilator. CXR (04/01) image and report reviewed. Devices in place. Bilateral diffuse interstitial opacities concerning for possible pulmonary edema. No pneumothorax. No pleural effusions. ABG reviewed, notable for acidemia. On AC mode; RR 18, VT 450, PEEP 5, Fio2 30% Titrate FIO2 to keep O2 saturation above 90%. VAP bundle. Daily ABG and CXR while intubated Sedate for ventilator synchrony - On Propofol, Versed, Fentanyl. Tamiflu course for influenza Continue antibiotics. On pressors for hemodynamic support Levophed 6 mcg/min Titrate to keep mean arterial pressure greater than 65 mmHg. Monitor renal function Monitor electrolytes. Supplement as necessary. Monitor ins and outs. GI prophylaxis. DVT prophylaxis. Prognosis: Poor given patient's multiple co-morbidities. Condition: Critical Rest of plan per hospitalist and other consultants. A total of 35 minutes of critical care time was spent reviewing the patient record, examining the patient, making a diagnostic and therapeutic plan, discussing this plan with the medical personnel, following up on diagnostic studies and following the patient for clinical stability excluding any and all procedures. At least 50% of this time was spent in direct, [id number] contact. Thank you Dr. Carroll Hobbs MD, for allowing me to participate in this patient's care. Further recommendations will depend on the patient's clinical course. Please do not hesitate to contact me if you have any questions or concerns. This medical document was created using an electronic medical record system with [employer] system. Although these documentations are being carefully reviewed, there may still be some phonetic and typographical changes. The errors are purely typographical, due to imperfection on the software program, and do not reflect any compromise in the patient's medical care. Plan discussed with: Other (NAJMA Kothari) Critical Care Time(min): 35 SYLVIE RAMIREZ MD Apr 03, 2024 22:59
[2024-04-04] VITALS (95 sets, daily range): BP systolic 105–194; BP diastolic 52–92; PULSE 60–81; RESP 15–33; TEMP 96.6–99.3; O2SAT 95–100
--- NOTE | 2024-04-04 05:50 | DVH ---
CHEST RADIOGRAPH Indication: INTUBATED Technique: Single frontal view of the chest was obtained COMPARISON: XY CHEST XRAY 1 VIEW on DOS: 04/01/24, XY CHEST PORTABLE on DOS: 04/01/24, XY CHEST XRAY 1 VIEW on DOS: 03/17/24 FINDINGS: Lines and Tubes: Endotracheal tube and left central venous catheter in satisfactory position. Enteri c catheter in satisfactory position. Lungs: Congestion. Pleura: No effusion. No pneumothorax. Cardiomediastinal contours: Unremarkable Bones: Unremarkable IMPRESSION: Lines and tubes in satisfactory position. No significant interval change.
[2024-04-04 05:55] LABS: Basophils # (auto) 0 10 ^3/uL (0-0.2); Basophils % (auto) 0.2 % (0.0-2.0); Eosinophils # (auto) 0 10 ^3/uL (0-0.8); Eosinophils % (auto) 0.1 % (0.0-7.0); Hematocrit 30.2 % (36.0-46.0); Hemoglobin 9.6 g/dL (12.2-16.2); Lymphocytes # (auto) 1.5 10 ^3/uL (0.4-5.4); Lymphocytes % (auto) 16.9 % (10.0-50.0); Mean Corpuscular Hemoglobin 29.2 pg (28.0-32.0); Mean Corpuscular Hgb Conc. 31.7 g/dL (32.0-36.0); Mean Corpuscular Volume 92.1 fL (80.0-100.0); Monocytes % (auto) 11.2 % (0.0-12.0); Neutrophils # (auto) 6.2 10 ^3/uL (1.6-8.6); Neutrophils % (auto) 71.6 % (37.0-80.0); Platelet Count (auto) 238 10^3/uL (140-450); Red Blood Cells 3.28 10^6/uL (4.0-5.20); Red Cell Distribution Width 17.5 % (11.8-14.3); White Blood Cell 8.6 10^3/uL (4.4-10.8)
[2024-04-04 06:15] LABS: Albumin 3.2 g/dL (3.2-4.8); Alkaline Phosphatase 61 U/L (46-116); Anion Gap 8 (5-15); Calcium 9.5 mg/dL (8.7-10.4); Carbon Dioxide 28 mmol/L (20-31); Magnesium 2.2 mg/dL (1.6-2.6); Potassium 3.9 mmol/L (3.5-5.1)
[2024-04-04 06:16] LABS: Bilirubin, Total 0.2 mg/dL (0.2-1.0); Phosphorus 2.7 mg/dL (2.4-5.1)
[2024-04-04 06:34] LABS: Alanine Aminotransferase < 9 U/L (7-40); Aspartate Aminotransferase 11 U/L (13-40); BUN/Creatinine Ratio 11.9 (10.0-20.0); Blood Urea Nitrogen < 5 mg/dL (9-23); Chloride 111 mmol/L (98-107); Glucose 116 mg/dL (74-106); Sodium 147 mmol/L (136-145); Total Protein 5.1 g/dL (5.7-8.2)
[2024-04-04 08:30] LABS: Base Excess 1.8 mmol/L (-2.0-3.0)
[2024-04-04] MEDS: LOSARTAN POTASSIUM 50 MG TAB PO SCH (09:51)
--- NOTE | 2024-04-04 12:52 | DVHPN2 ---
Assessment/Plan Assessment/Plan ICU progress note Subjective 64-year-old female with COPD, asthma, CAD admitted for shortness of breath, found to be saturating on 70%, initially placed on BiPAP with no significant improvement, intubated and placed on mechanical ventilation. Patient seen by me today during rounds. Following commands, apneic on SBT, will change sedation to precedex and versed pushes. Objective Physical exam Intubated and mechanically ventilated following commands PERLLA Clear breath sounds, no wheezing S1 S2 RRR no murmur Abdomen soft nontender Evans in place No LE edema Vents VC/AC 400 18 30% 5 Drips precedex Lab Lact 4.8 Imaging CXR interstitial opacity, left IJ cath, ET tube and NG tube in place Assessment and plan Acute hypoxic respiratory failure requiring mechanical ventilation Distributive shock sedation related Asthma exacerbation CAD Diabetes mellitus Influenza A PNA Influenza B PNA Type 1 lactic acidosis resolved Type 2 lactic acidosis 2/2 albuterol Admit to ICU Continue with sedation and mechanical ventilation Daily SAT/SBT Tamiflu Solumedrol Breathing treatment Ceftriaxone and azithromycin maintain map >65 IVF bolus Insulin sliding scale and fingerstick q.6 Strict ins and out Daily weight Lines L IJ TLC Evans cath Maintain potassium of 4, phosphate of 3 and magnesium of 2 Diet tube feeding GI prophylaxis protonix DVT prophylaxis lovenox Condition critical Prognosis poor 85 minutes critical care time spent on this patient including evaluation, chart review, formulating plan and communication with team, excluding any procedures or point of care imaging Plan discussed with: Patient My Orders Orders - JOYCELYN TIDWELL MD Procedure Category Date Status Time Communication Order ORDERS 04/03/24 Transmitted 15:30 Losartan Tablet PHA 04/04/24 In Process (Cozaar Tablet) 10:00 Cpap Trial For Am ORDERS 04/04/24 Transmitted 10:00 Date of Service: Apr 04, 2024 Billing Provider: JOYCELYN TIDWELL MD Common Visit Codes: [id number] CARE 30-74 MIN, [id number] CARE-EACH +30MIN JOYCELYN TIDWELL MD Apr 04, 2024 12:52
[2024-04-04] MEDS ORDERED: MIDAZOLAM HCL 5 MG/ML-1ML VIAL IV PRN (13:00)
--- NOTE | 2024-04-04 14:11 | MEDREC ---
[facility] Intervention Section I [facility] Intervention: Review courses of therapy (PATIENT WAS RECENT DISCHARGED ON 03/17, TREATED WITH AUGMENTIN, AZITHROMYCIN AND TAMIFLU. BRONCHIAL CULTURE SHOWED STAPH. LUGDUNENSIS. THE QT INTERVAL PROLONGED (QTc 519 ON 04/01). PLEASE CONSIDER ESCALATING ANTBIOTICS DUE TO RE-ADMISSION WITHIN 30 DAYS OR SWITCH AZITHROMYCIN TO DOXYCYCLINE TO AVOID FURTHER PROLONG QT INTERVAL) ROBERT SCHMID Apr 04, 2024 14:11
[2024-04-04] MEDS ORDERED: Jevity 1.2 Cal/Fiber 1 Liter GT SCH (14:30)
[2024-04-04] MEDS: POTASSIUM CHL 20MEQ/100ML 100 ML IV ONE ×2 (14:51)
[2024-04-04] MEDS: MIDAZOLAM HCL 2MG/2ML 2ml VIAL (1mg/ml) IV PRN (14:52)
[2024-04-04] MEDS: MIDAZOLAM HCL 2MG/2ML 2ml VIAL (1mg/ml) ONE (14:53)
--- NOTE | 2024-04-04 16:26 | DVHPN2 ---
Progress Note - Dictate Date Seen: Apr 04, 2024 Medical Necessity Reason Pt with a Central, PICC or Fol: Yes The following are medically ne: Phillips Catheter Reason for phillips catheter: Strict I&O Subjective Patient seen and examined at bedside. intubated on mechanical ventilator. Overnight events reviewed. vital signs Vital Sign Date Time Temp Pulse Resp B/P (MAP) Pulse Ox O2 Delivery O2 Flow Rate FiO2 04/04/24 15:12 79 19 127/61 (83) 99 30 04/04/24 13:30 99.0 210.2 04/04/24 12:00 Mechanical Ventilator+ Total Intake and Output 04/03/24 04/03/24 04/04/24 15:00 23:00 07:00 Intake Total 1000 ml 900.55 ml 1027.10 ml Output Total 550 ml Balance 1000 ml 900.55 ml 477.10 ml medications Current Medications Medications Dose Ordered Sig/Aida Route Start Time Stop Time Status Last Admin Dose Admin Ceftriaxone Sodium 50 ml @ 100 mls/hr DAILY@09 IV 04/02/24 09:00 04/04/24 09:49 100 MLS/HR Azithromycin 250 ml @ 125 mls/hr DAILY IV 04/02/24 10:00 04/04/24 10:39 125 MLS/HR Diagnostic Test (Pha) 1 strip Q6HR 04/02/24 06:00 04/04/24 12:00 1 STRIP Insulin Human Regular Q6HR SC 04/02/24 06:00 04/04/24 00:30 2 UNITS Dextrose 50 ml UD PRN IV 04/02/24 01:00 04/03/24 07:49 50 ML Enoxaparin Sodium 40 mg DAILY SC 04/02/24 10:00 04/04/24 09:52 40 MG Acetaminophen 650 mg Q6HP PRN PO 04/02/24 01:00 Methylprednisolone Sodium Succinate 40 mg DAILY IV 04/02/24 11:15 04/04/24 09:50 40 MG Albuterol 2.5 mg Q4HR NEB 04/02/24 14:00 04/04/24 10:25 2.5 MG Ipratropium [place] 0.5 mg Q4HR NEB 04/02/24 14:00 04/04/24 10:25 0.5 MG Pantoprazole Sodium 40 mg DAILY IV 04/03/24 10:00 04/04/24 09:50 40 MG Oseltamivir Phosphate 30 mg BID GT 04/02/24 22:00 04/06/24 21:59 04/04/24 10:00 30 MG Enalaprilat 0.625 mg Q6HP PRN IV 04/02/24 16:00 Dextrose/Lactated Ringer's 1,000 ml @ 100 mls/hr Q10H IV 04/03/24 08:30 04/04/24 14:51 100 MLS/HR Norepinephrine Bitartrate 250 ml @ 3.75 mls/hr Q24H IV 04/03/24 08:30 04/03/24 20:22 3.75 MLS/HR Dexmedetomidine HCl 400 mcg/ Dextrose 100 ml @ 2.45 mls/hr Q24H IV 04/03/24 11:30 04/03/24 11:38 2.45 MLS/HR Losartan Potassium 50 mg DAILY PO 04/04/24 10:00 04/04/24 09:51 50 MG Midazolam HCl 4 mg Q2HP PRN IV 04/04/24 14:30 04/04/24 14:52 4 MG Enteral Nutritional Formula 1,000 ml 50ML/HR GT 04/04/24 14:30 objective Gen.: Patient lying in bed in medical ICU. Intubated on mechanical ventilator. Head: Normocephalic, atraumatic. Eyes: PERRLA. Ears: Normal external anatomy. Throat: Endotracheal tube and orogastric tube in place. Neck: Supple, trachea midline. Chest: Transmitted breath sounds bilaterally. Decreased air entry bilaterally. No wheezing. Bibasilar crackles. Cardiovascular: Positive S1, positive S2. Regular rate and rhythm. Abdomen: Positive bowel sounds in all 4 quadrants. Soft, nontender, nondistended. : Phillips in place. Normal external genitalia. Rectal: Deferred. Skin: Warm, dry. Intact. Extremities: 2+ radial pulses bilaterally. No lower extremity edema. Neuro: Off sedation laboratory and microbiology Laboratory Tests 04/04/24 04:58 Test 04/04/24 04:58 Range/Units Serum Glucose 116 H 74-106 mg/dL Assessment/Plan Impression: Acute on chronic hypoxic respiratory failure 2/2 Asthma exacerbation On mechanical ventilator Asthma exacerbation Nicotine dependence COPD DM type II Hypokalemia Lactic acidosis Influenza A and B positive Septic shock vs Distributive component. Atelectasis Events: CPAP with PS 8, PEEP of 5. Patient tolerating. Follow up ABG + weaning parameters Off sedation. On Precedex drip Continue Tamiflu for influenza Continue antibiotics Potassium supplementation Monitor renal function. Monitor electrolytes. Supplement as necessary. Lactic acid 22, trending down. Labs and imaging reviewed. Rest of plan as noted below. Plan: s/p intubation on mechanical ventilator. CXR (04/01) image and report reviewed. Devices in place. Bilateral diffuse interstitial opacities concerning for possible pulmonary edema. No pneumothorax. No pleural effusions. ABG reviewed, notable for acidemia. On AC mode; RR 18, VT 450, PEEP 5, Fio2 30% Titrate FIO2 to keep O2 saturation above 90%. VAP bundle. Daily ABG and CXR while intubated Off sedation Tamiflu course for influenza Continue antibiotics. Off pressors, hemodynamically stable Monitor renal function Monitor electrolytes. Supplement as necessary. Monitor ins and outs. GI prophylaxis. DVT prophylaxis. Prognosis: Poor given patient's multiple co-morbidities. Condition: Critical Rest of plan per hospitalist and other consultants. A total of 35 minutes of critical care time was spent reviewing the patient record, examining the patient, making a diagnostic and therapeutic plan, discussing this plan with the medical personnel, following up on diagnostic studies and following the patient for clinical stability excluding any and all procedures. At least 50% of this time was spent in direct, [id number] contact. Thank you Dr. Carroll Hobbs MD, for allowing me to participate in this patient's care. Further recommendations will depend on the patient's clinical course. Please do not hesitate to contact me if you have any questions or concerns. This medical document was created using an electronic medical record system with [employer] dictation system. Although these documentations are being carefully reviewed, there may still be some phonetic and typographical changes. The errors are purely typographical, due to imperfection on the software program, and do not reflect any compromise in the patient's medical care. Plan discussed with: Other (NAJMA Pichardo) Critical Care Time(min): 35 SYLVIE RAMIREZ MD Apr 04, 2024 16:26
[2024-04-04 17:53] LABS: Urine Bacteria None Seen /hpf (None Seen)
[2024-04-04 18:10] LABS: Urine Blood 1+ /uL (Negative); Urine Clarity Clear (Clear); Urine Color Light-Yellow (Yellow); Urine Mucus FEW (None Seen); Urine Protein, UAD Negative (Negative); Urine Specific Gravity 1.015 (1.001-1.035); Urine Squamous Epithelial Cell FEW /hpf (<5); Urine Urobilinogen Normal (Negative); Urine WBC 5 /hpf (0 - 5); Urine pH 5.5 (5.0-9.0)
[2024-04-04 18:20] LABS: Cocaine Screen, Urine Pos (NEGATIVE); Opiate Scree,Urine Neg (NEGATIVE)
[2024-04-04] MEDS: ENALAPRILAT 1.25 MG/ML-1ML VIAL IV PRN (18:20)
[2024-04-04 18:21] LABS: Amphetamine Screen, Urine Neg (NEGATIVE); Barbiturate Scree,Urine Neg (NEGATIVE); Benzodiazephine Screen, Urine Pos (NEGATIVE); Cannabinoid Screen, Urine Neg (NEGATIVE); Phencyclidine Screen, Urine Neg (NEGATIVE)
[2024-04-04] MEDS: PROPOFOL 100 ML IV SCH (20:30)
[2024-04-04] MEDS: cloNIDine HCL 0.1 MG TAB PO PRN (22:38)
[2024-04-05] VITALS (108 sets, daily range): BP systolic 109–198; BP diastolic 58–97; PULSE 59–105; RESP 13–40; TEMP 96.3–98.4; O2SAT 95–100
[2024-04-05] MEDS: hydrALAZINE HCL 20 MG/ML VL IV PRN (01:59)
[2024-04-05 05:54] LABS: Basophils # (auto) 0 10 ^3/uL (0-0.2); Basophils % (auto) 0.3 % (0.0-2.0); Eosinophils # (auto) 0.1 10 ^3/uL (0-0.8); Eosinophils % (auto) 0.8 % (0.0-7.0); Hemoglobin 9.8 g/dL (12.2-16.2); Lymphocytes # (auto) 1.7 10 ^3/uL (0.4-5.4); Lymphocytes % (auto) 20.4 % (10.0-50.0); Mean Corpuscular Hemoglobin 29.2 pg (28.0-32.0); Mean Corpuscular Hgb Conc. 32.5 g/dL (32.0-36.0); Mean Corpuscular Volume 89.8 fL (80.0-100.0); Monocytes # (auto) 0.9 10 ^3/uL (0-1.3); Monocytes % (auto) 10.7 % (0.0-12.0); Neutrophils # (auto) 5.7 10 ^3/uL (1.6-8.6); Neutrophils % (auto) 67.8 % (37.0-80.0); Nucleated Red Blood Cells % 0.1 %; Platelet Count (auto) 199 10^3/uL (140-450); Red Blood Cells 3.34 10^6/uL (4.0-5.20); Red Cell Distribution Width 16.4 % (11.8-14.3); White Blood Cell 8.4 10^3/uL (4.4-10.8)
[2024-04-05 06:13] LABS: Potassium 3.7 mmol/L (3.5-5.1); Sodium 143 mmol/L (136-145)
[2024-04-05 06:14] LABS: Anion Gap 7 (5-15); Calcium 9.3 mg/dL (8.7-10.4); Carbon Dioxide 28 mmol/L (20-31)
[2024-04-05 06:17] LABS: Chloride 108 mmol/L (98-107)
[2024-04-05 06:19] LABS: BUN/Creatinine Ratio 12.8 (10.0-20.0)
[2024-04-05 06:20] LABS: Magnesium 1.7 mg/dL (1.6-2.6)
[2024-04-05 06:21] LABS: Phosphorus 3.2 mg/dL (2.4-5.1)
[2024-04-05 06:24] LABS: Base Excess 2.3 mmol/L (-2.0-3.0)
[2024-04-05 06:31] LABS: Blood Urea Nitrogen 6 mg/dL (9-23); Glucose 118 mg/dL (74-106)
--- NOTE | 2024-04-05 10:20 | DVHPN2 ---
Assessment/Plan Assessment/Plan ICU progress note Subjective 64-year-old female with COPD, asthma, CAD admitted for shortness of breath, found to be saturating on 70%, initially placed on BiPAP with no significant improvement, intubated and placed on mechanical ventilation. Patient seen by me today during rounds. on propofol overnight, on SBT breathing 30s, no apneic episode. c/w SBT/SAT Objective Physical exam Intubated and mechanically ventilated following commands PERLLA Clear breath sounds, no wheezing S1 S2 RRR no murmur Abdomen soft nontender Evans in place No LE edema Vents VC/AC 400 18 30% 5 Drips precedex Lab Lact 4.8 Imaging CXR interstitial opacity, left IJ cath, ET tube and NG tube in place Assessment and plan Acute hypoxic respiratory failure requiring mechanical ventilation Distributive shock sedation related vs sepsis Asthma exacerbation CAD Diabetes mellitus Influenza A PNA Influenza B PNA Type 1 lactic acidosis resolved Type 2 lactic acidosis 2/2 albuterol Admit to ICU Continue with sedation and mechanical ventilation Daily SAT/SBT Tamiflu Solumedrol Breathing treatment Ceftriaxone and azithromycin maintain map >65 IVF bolus Insulin sliding scale and fingerstick q.6 Strict ins and out Daily weight Lines L IJ TLC Evans cath Maintain potassium of 4, phosphate of 3 and magnesium of 2 Diet tube feeding GI prophylaxis protonix DVT prophylaxis lovenox Condition critical Prognosis poor 88 minutes critical care time spent on this patient including evaluation, chart review, formulating plan and communication with team, excluding any procedures or point of care imaging Plan discussed with: Patient My Orders Orders - JOYCELYN TIDWELL MD Procedure Category Date Status Time Communication Order ORDERS 04/04/24 Transmitted 08:15 Midazolam Injection PHA 04/04/24 In Process (Versed Injection) 14:30 Nutritional PHA 04/04/24 In Process Supplements (Jevity 14:30 Communication Order ORDERS 04/04/24 Transmitted 10:20 Communication Order ORDERS 04/04/24 Transmitted 15:39 Propofol (Diprivan) PHA 04/04/24 In Process 20:00 Cpap Trial For Am ORDERS 04/05/24 Transmitted 09:09 Date of Service: Apr 05, 2024 Billing Provider: JOYCELYN TIDWELL MD Common Visit Codes: [id number] CARE 30-74 MIN, [id number] CARE-EACH +30MIN JOYCELYN TIDWELL MD Apr 05, 2024 10:20
[2024-04-05] MEDS ORDERED: clonazePAM 0.5 MG TAB PO PRN (13:30)
--- NOTE | 2024-04-05 18:06 | DVHPN ---
DATE: 04/05/2024 PULMONARY FOLLOWUP SUBJECTIVE: The patient was given a trial of CPAP this morning. The patient lasted an hour, but became tachycardic, tachypneic, and desaturated somewhat and was reverted back to her assist control vent settings. The patient is currently sedated, appears to be comfortable, in no acute distress. Bedside RN tells me there are no significant secretions however, she does become agitated easily. Her urine output has been stable. She has not been running any fevers. OBJECTIVE: VITAL SIGNS: Stable. Heart rate is 74, respiratory rate 18, blood pressure 130/72, saturations 98% on 30% FiO2. NECK: Supple. No JVD. CHEST: Reveals mild end expiratory wheezing. No rales. Air entry is diminished at bases. ABDOMEN: Soft, nontender. Bowel sounds normal. EXTREMITIES: No edema. LABORATORY WORK: Chest x-ray shows lines and tubes are in position. The other lab work significant for hematocrit 30. Blood gases, pH 7.5, pCO2 32, pO2 85 on assist control, tidal volume 450, rate of 18, PEEP of 5, 30% FiO2. Serum chemistries: Chloride 108, BUN 6, rest was noted. Last BNP was 133. Tox screen was positive on 04/04 for benzodiazepines and cocaine. Urinalysis revealed 5 wbcs per high-powered field. Cultures have so far been negative. IMPRESSION: Acute respiratory failure, history of asthma exacerbation, history of tobacco abuse and tobacco dependence, history of diabetes, influenza A and B positive. Possible element of anxiety, atelectasis. PLAN: We will try to give a CPAP trial again with a pressure support of 8 and PEEP of 5 with 30% FIO2. If the patient is stable in the morning, I will ask the bedside RN to keep her on low dose of Precedex and see if that will improve her anxiety. We will continue bronchodilators. The patient also remains on Zithromax and Rocephin, Lovenox for DVT prophylaxis. The patient is on Solu-Medrol. If the patient has increased wheezing, then can try increased dose of Solu-Medrol. Continue Protonix for GI prophylaxis. The patient also remains on Tamiflu. Rest of the medical management depends on her response, especially to CPAP in the morning. Plan discussed with bedside RN. Critical time was 37 minutes. Olaf Maldonado MD /MIKALA TID: [id number] RECEIPT: [id number]
[2024-04-05] MEDS: clonazePAM 0.5 MG TAB PO SCH (20:48)
[2024-04-06] VITALS (104 sets, daily range): BP systolic 102–205; BP diastolic 53–101; PULSE 61–110; RESP 13–50; TEMP 96.8–99.3; O2SAT 92–100
[2024-04-06] MEDS: hydrALAZINE HCL 20 MG/ML VL IV PRN (01:18)
[2024-04-06 04:59] LABS: Basophils # (auto) 0.1 10 ^3/uL (0-0.2); Eosinophils # (auto) 0 10 ^3/uL (0-0.8); Eosinophils % (auto) 0.5 % (0.0-7.0); Hematocrit 29.6 % (36.0-46.0); Hemoglobin 9.8 g/dL (12.2-16.2); Lymphocytes # (auto) 2.2 10 ^3/uL (0.4-5.4); Lymphocytes % (auto) 25.2 % (10.0-50.0); Mean Corpuscular Hemoglobin 29.6 pg (28.0-32.0); Mean Corpuscular Volume 89.6 fL (80.0-100.0); Monocytes # (auto) 0.9 10 ^3/uL (0-1.3); Monocytes % (auto) 10.7 % (0.0-12.0); Neutrophils # (auto) 5.3 10 ^3/uL (1.6-8.6); Neutrophils % (auto) 62.6 % (37.0-80.0); Nucleated Red Blood Cells % 0.1 %; Platelet Count (auto) 186 10^3/uL (140-450); Red Blood Cells 3.31 10^6/uL (4.0-5.20); Red Cell Distribution Width 16.6 % (11.8-14.3); White Blood Cell 8.5 10^3/uL (4.4-10.8)
[2024-04-06 05:08] LABS: Sodium 143 mmol/L (136-145)
[2024-04-06 05:09] LABS: Anion Gap 7 (5-15); Calcium 9.2 mg/dL (8.7-10.4); Carbon Dioxide 28 mmol/L (20-31)
[2024-04-06 05:14] LABS: BUN/Creatinine Ratio 12.8 (10.0-20.0); Glucose 102 mg/dL (74-106)
[2024-04-06 05:15] LABS: Blood Urea Nitrogen 6 mg/dL (9-23); Chloride 108 mmol/L (98-107); Magnesium 1.8 mg/dL (1.6-2.6); Potassium 3.2 mmol/L (3.5-5.1)
--- NOTE | 2024-04-06 05:45 | DVH ---
CHEST RADIOGRAPH Indication: intubated Technique: Single frontal view of the chest was obtained Comparison: XY CHEST PORTABLE on DOS: 04/04/24, XY CHEST XRAY 1 VIEW on DOS: 04/01/24, XY CHEST SURENDRA BLE on DOS: 04/01/24 IMPRESSION: Support lines and tubes appear unchanged in satisfactory in position. The right lung appears relativ gentry clear. Patchy airspace opacity of the left lung base has increased. Possible small left pleural effusion. No pneumothorax.
[2024-04-06 07:30] LABS: Base Excess 0.6 mmol/L (-2.0-3.0)
--- NOTE | 2024-04-06 09:52 | DVHPN2 ---
Assessment/Plan Assessment/Plan ICU progress note Subjective 64-year-old female with COPD, asthma, CAD admitted for shortness of breath, found to be saturating on 70%, initially placed on BiPAP with no significant improvement, intubated and placed on mechanical ventilation. Patient seen by me today during rounds. extubated this morning to oxymask. all parameters met Objective Physical exam alert, recently extubated following commands PERLLA Clear breath sounds, no wheezing, no stridor S1 S2 RRR no murmur Abdomen soft nontender Evans in place No LE edema Drips precedex Lab status quo Imaging CXR interstitial opacity, left IJ cath, ET tube and NG tube in place Assessment and plan Acute hypoxic respiratory failure requiring mechanical ventilation, resolved Distributive shock sedation related vs sepsis, resolved Asthma exacerbation hypertension CAD Diabetes mellitus Influenza A PNA Influenza B PNA Type 1 lactic acidosis resolved Type 2 lactic acidosis 2/2 albuterol transfer to [facility] extubated today Daily SAT/SBT Tamiflu Solumedrol Breathing treatment Ceftriaxone and azithromycin maintain map >65 IVF bolus Insulin sliding scale and fingerstick q.6 Strict ins and out Daily weight Lines L IJ TLC Evans cath Maintain potassium of 4, phosphate of 3 and magnesium of 2 Diet NPO, regular after swallow bedside GI prophylaxis protonix DVT prophylaxis lovenox Condition critical Prognosis poor 84 minutes critical care time spent on this patient including evaluation, chart review, formulating plan and communication with team, excluding any procedures or point of care imaging Plan discussed with: Patient My Orders Orders - JOYCELYN TIDWELL MD Procedure Category Date Status Time Clonazepam Tablet PHA 04/05/24 In Process (Klonopin Tablet) 22:00 Chest Portable XY 04/06/24 Resulted 04:00 Date of Service: Apr 06, 2024 Billing Provider: JOYCELYN TIDWELL MD Common Visit Codes: [id number] CARE 30-74 MIN, [id number] CARE-EACH +30MIN JOYCELYN TIDWELL MD Apr 06, 2024 09:52
[2024-04-06] MEDS: amLODIPine BESYLATE 5 MG TAB PO SCH (10:00)
[2024-04-06] MEDS: D5W/LACTATED RINGERS 1,000 ML IV SCH (10:30)
[2024-04-06] MEDS: POTASSIUM CHL 20MEQ/100ML 100 ML IV SCH (13:00)
[2024-04-06] MEDS: KETOROLAC TROMETH 30 MG/ML 1ML VIAL IV ONE (17:05)
--- NOTE | 2024-04-06 19:12 | DVHPN ---
DATE: 04/06/2024 PULMONARY FOLLOWUP PRIMARY PHYSICIAN: Dr. Carroll Hobbs. HISTORY: The patient was given a trial of CPAP this morning with a pressure support of 8, PEEP of 5, 30%, which she tolerated quite well. The patient was on Precedex, tolerated the CPAP trial. While weaning parameters were adequate, the patient was extubated. She is currently on nasal cannula. She is comfortable. She denies any respiratory distress. No significant pain. Mild cough. No expectoration. Denies any orthopnea or PND. PHYSICAL EXAMINATION: VITAL SIGNS: T-max of 99.9, blood pressure of 160/81, respiratory rate 18, no distress, saturations 98 on 2 liters. HEENT: Unremarkable. Mild oropharyngeal crowding. Tongue is moist. NECK: Supple. CHEST: Examination reveals bilateral rales, especially more common on the left side. Prolonged exhalation. ABDOMEN: Soft, nontender. Bowel sounds normal. EXTREMITIES: 1+ pedal edema. LAB WORK: Reviewed. Blood gases on CPAP revealed pH 7.52, pCO2 26, pO2 87. The other lab work potassium 3.2, has been replaced. BUN 6. Others were noted. Chest x-ray does show slightly increased infiltrate, also positive for influenza A and B. IMPRESSION: * Acute respiratory failure. * Pneumonia. * Underlying asthma. * Anxiety. * History of tobacco abuse. * History of diabetes. * Influenza A and B. * Atelectasis. PLAN: The patient continued to titrate. Continue oxygen, titrate to keep saturations greater than 90%. If room air saturations are greater than 90, can discontinue oxygen. Incentive spirometry. Ambulate as tolerated. Continue Rocephin and Zithromax for 7 days. Continue Lovenox for DVT prophylaxis. Can change the steroids to p.o. Continue med nebs. Continue Protonix for GI prophylaxis. Total of 5 days of Tamiflu is recommended. Rest of the medical management per response. The patient also has been started on clonazepam for anxiety. Plan discussed with bedside RN. Critical time 37 minutes. MD RACHID Baca/DANIEL TID: [id number] RECEIPT: [id number] cc: Carroll Hobbs
[2024-04-07] VITALS (55 sets, daily range): BP systolic 147–189; BP diastolic 62–110; PULSE 88–111; RESP 16–37; TEMP 97.8–99; O2SAT 95–100
[2024-04-07] MEDS: HYDROcodone-ACET 5/325MG TAB PO PRN ×2 (00:08→16:23)
[2024-04-07 05:11] LABS: Basophils # (auto) 0.1 10 ^3/uL (0-0.2); Basophils % (auto) 0.6 % (0.0-2.0); Eosinophils # (auto) 0.1 10 ^3/uL (0-0.8); Eosinophils % (auto) 0.8 % (0.0-7.0); Hematocrit 31.2 % (36.0-46.0); Hemoglobin 10.1 g/dL (12.2-16.2); Lymphocytes # (auto) 2.4 10 ^3/uL (0.4-5.4); Lymphocytes % (auto) 20.3 % (10.0-50.0); Mean Corpuscular Hemoglobin 28.8 pg (28.0-32.0); Mean Corpuscular Hgb Conc. 32.2 g/dL (32.0-36.0); Mean Corpuscular Volume 89.4 fL (80.0-100.0); Monocytes # (auto) 1.2 10 ^3/uL (0-1.3); Monocytes % (auto) 10.6 % (0.0-12.0); Neutrophils # (auto) 7.9 10 ^3/uL (1.6-8.6); Neutrophils % (auto) 67.7 % (37.0-80.0); Platelet Count (auto) 195 10^3/uL (140-450); Red Blood Cells 3.49 10^6/uL (4.0-5.20); Red Cell Distribution Width 16.6 % (11.8-14.3); White Blood Cell 11.7 10^3/uL (4.4-10.8)
[2024-04-07 05:17] LABS: Anion Gap 7 (5-15); Carbon Dioxide 29 mmol/L (20-31); Sodium 144 mmol/L (136-145)
[2024-04-07 05:18] LABS: Calcium 9.4 mg/dL (8.7-10.4)
[2024-04-07 05:23] LABS: BUN/Creatinine Ratio 12.1 (10.0-20.0); Magnesium 1.9 mg/dL (1.6-2.6)
[2024-04-07 05:24] LABS: Blood Urea Nitrogen 7 mg/dL (9-23); Chloride 108 mmol/L (98-107); Glucose 121 mg/dL (74-106); Potassium 3.3 mmol/L (3.5-5.1)
[2024-04-07 05:25] LABS: Phosphorus 3.4 mg/dL (2.4-5.1)
[2024-04-07] MEDS: POTASSIUM CHL 20MEQ/100ML 100 ML IV SCH (06:52)
[2024-04-07 08:52] LABS: Base Excess 4.4 mmol/L (-2.0-3.0)
[2024-04-07] MEDS: MAGNESIUM SULFATE 1GM/100ML 100 ML IV SCH (09:19)
[2024-04-07] MEDS: POTASSIUM EFFERVESENT TAB 25 MEQ PO ONE (09:25)
--- NOTE | 2024-04-07 11:34 | DVH ---
EXAM: XY CHEST PORTABLE Indication: interval Technique: Single frontal view of the chest was obtained Comparison: XY CHEST PORTABLE on DOS: 04/06/24, XY CHEST PORTABLE on DOS: 04/04/24, XY CHEST XRAY 1 V IEW on DOS: 04/01/24, XY CHEST PORTABLE on DOS: 04/01/24, XY CHEST XRAY 1 VIEW on DOS: 03/17/24 FINDINGS: Lines and Tubes: Left internal jugular central venous catheter tip projects over the superior vena ca va. Lungs: Right upper lobe linear atelectasis versus pulmonary edema. Pleura: No effusion. No pneumothorax. Cardiomediastinal contours: Unremarkable Bones: No acute osseous abnormality. IMPRESSION: Right upper lobe linear atelectasis versus pulmonary edema.
--- NOTE | 2024-04-07 14:58 | DVHPN2 ---
Assessment/Plan Assessment/Plan ICU progress note Subjective 64-year-old female with COPD, asthma, CAD admitted for shortness of breath, found to be saturating on 70%, initially placed on BiPAP with no significant improvement, intubated and placed on mechanical ventilation. Patient seen by me today during rounds. comfortable on NC, not wheezing, asking for pain meds Objective Physical exam alert, recently extubated following commands PERLLA Clear breath sounds, no wheezing, no stridor S1 S2 RRR no murmur Abdomen soft nontender Evans in place No LE edema Drips precedex Lab status quo Imaging CXR interstitial opacity, left IJ cath, ET tube and NG tube in place Assessment and plan Acute hypoxic respiratory failure requiring mechanical ventilation, resolved Distributive shock sedation related vs sepsis, resolved Asthma exacerbation hypertension CAD Diabetes mellitus Influenza A PNA Influenza B PNA Type 1 lactic acidosis resolved Type 2 lactic acidosis 2/2 albuterol transfer to [facility] extubated today titrate down O2 sup Daily SAT/SBT Tamiflu Solumedrol Breathing treatment Ceftriaxone and azithromycin maintain map >65 IVF bolus Insulin sliding scale and fingerstick q.6 Strict ins and out Daily weight remove TLC place midline downgrade to tele Lines L IJ TLC Evans cath Maintain potassium of 4, phosphate of 3 and magnesium of 2 Diet NPO, regular after swallow bedside GI prophylaxis protonix DVT prophylaxis lovenox Condition critical Prognosis poor 43 minutes critical care time spent on this patient including evaluation, chart review, formulating plan and communication with team, excluding any procedures or point of care imaging Plan discussed with: Patient My Orders Orders - JOYCELYN TIDWELL MD Procedure Category Date Status Time Soft Diet DIET 04/07/24 Transmitted Dinner Abg W/ Co-Ox RT 04/07/24 Logged 08:21 Chest Portable XY 04/07/24 Resulted 08:21 Transfer Orders XFER 04/07/24 Transmitted 09:42 D/C Tlc BRIA 04/07/24 In Process 09:42 Date of Service: Apr 07, 2024 Billing Provider: JOYCELYN TIDWELL MD Common Visit Codes: [id number] CARE 30-74 MIN JOYCELYN TIDWELL MD Apr 07, 2024 14:58
[2024-04-07] MEDS: CYCLOBENZAPRINE HCL 10 MG TAB PO PRN (18:34)
[2024-04-07] MEDS: LIDOCAINE 5% TOPICAL PATCH TOP SCH (22:00)
[2024-04-07] MEDS: traZODone HCL 50 MG TAB PO SCH (22:04)
[2024-04-08] VITALS (21 sets, daily range): BP systolic 125–175; BP diastolic 56–84; PULSE 89–112; RESP 16–24; TEMP 98–98.7; O2SAT 90–100
[2024-04-08 05:56] LABS: Basophils # (auto) 0.1 10 ^3/uL (0-0.2); Basophils % (auto) 0.7 % (0.0-2.0); Eosinophils # (auto) 0.2 10 ^3/uL (0-0.8); Eosinophils % (auto) 1.7 % (0.0-7.0); Hematocrit 29.1 % (36.0-46.0); Hemoglobin 9.4 g/dL (12.2-16.2); Lymphocytes # (auto) 2.5 10 ^3/uL (0.4-5.4); Mean Corpuscular Hemoglobin 28.9 pg (28.0-32.0); Mean Corpuscular Hgb Conc. 32.2 g/dL (32.0-36.0); Mean Corpuscular Volume 89.7 fL (80.0-100.0); Monocytes # (auto) 1.2 10 ^3/uL (0-1.3); Monocytes % (auto) 12.7 % (0.0-12.0); Neutrophils # (auto) 5.6 10 ^3/uL (1.6-8.6); Neutrophils % (auto) 58.9 % (37.0-80.0); Nucleated Red Blood Cells % 0.1 %; Platelet Count (auto) 176 10^3/uL (140-450); Red Blood Cells 3.24 10^6/uL (4.0-5.20); Red Cell Distribution Width 16.3 % (11.8-14.3); White Blood Cell 9.5 10^3/uL (4.4-10.8)
[2024-04-08 06:05] LABS: Anion Gap 7 (5-15); Carbon Dioxide 30 mmol/L (20-31); Potassium 3.6 mmol/L (3.5-5.1)
[2024-04-08 06:06] LABS: Calcium 9.2 mg/dL (8.7-10.4)
[2024-04-08 06:11] LABS: Blood Urea Nitrogen 11 mg/dL (9-23); Glucose 99 mg/dL (74-106)
[2024-04-08 06:12] LABS: Magnesium 2.2 mg/dL (1.6-2.6)
[2024-04-08 06:15] LABS: Chloride 110 mmol/L (98-107); Sodium 147 mmol/L (136-145)
--- NOTE | 2024-04-08 09:58 | DVHPN2 ---
Progress Note - Dictate Date Seen: Apr 07, 2024 Medical Necessity Reason Pt with a Central, PICC or Fol: Yes The following are medically ne: Phillips Catheter Reason for phillips catheter: Strict I&O Subjective Patient seen and examined at bedside. S/p extubation, on supplemental oxygen Overnight events reviewed. vital signs Vital Sign Date Time Temp Pulse Resp B/P (MAP) Pulse Ox O2 Delivery O2 Flow Rate FiO2 04/08/24 09:45 91 Nasal Cannula 1.0 04/08/24 09:45 24 04/08/24 09:45 103 22 04/08/24 09:00 98.1 154/64 (94) 98.1 Total Intake and Output 04/07/24 04/07/24 04/08/24 15:00 23:00 07:00 Intake Total 920 ml 0 ml 300 ml Output Total 2200 ml 350 ml 1500 ml Balance -1280 ml -350 ml -1200 ml medications Current Medications Medications Dose Ordered Sig/Aida Route Start Time Stop Time Status Last Admin Dose Admin Ceftriaxone Sodium 50 ml @ 100 mls/hr DAILY@09 IV 04/02/24 09:00 04/08/24 08:57 100 MLS/HR Azithromycin 250 ml @ 125 mls/hr DAILY IV 04/02/24 10:00 04/07/24 09:25 125 MLS/HR Diagnostic Test (Pha) 1 strip Q6HR 04/02/24 06:00 04/08/24 05:15 1 STRIP Insulin Human Regular Q6HR SC 04/02/24 06:00 04/08/24 00:01 2 UNITS Dextrose 50 ml UD PRN IV 04/02/24 01:00 04/03/24 07:49 50 ML Enoxaparin Sodium 40 mg DAILY SC 04/02/24 10:00 04/08/24 09:00 40 MG Acetaminophen 650 mg Q6HP PRN PO 04/02/24 01:00 Methylprednisolone Sodium Succinate 40 mg DAILY IV 04/02/24 11:15 04/08/24 08:59 40 MG Albuterol 2.5 mg Q4HR NEB 04/02/24 14:00 04/08/24 09:45 2.5 MG Ipratropium [place] 0.5 mg Q4HR NEB 04/02/24 14:00 04/08/24 09:45 0.5 MG Pantoprazole Sodium 40 mg DAILY IV 04/03/24 10:00 04/08/24 08:58 40 MG Enalaprilat 0.625 mg Q6HP PRN IV 04/02/24 16:00 04/07/24 22:09 0.625 MG Losartan Potassium 50 mg DAILY PO 04/04/24 10:00 04/08/24 09:00 50 MG Clonazepam 1 mg Q12HR PO 04/05/24 22:00 04/08/24 09:30 1 MG Amlodipine Besylate 5 mg DAILY PO 04/06/24 10:00 04/08/24 08:58 5 MG Acetaminophen/ Hydrocodone Bitart 1 tab Q6HPRN PRN PO 04/07/24 15:15 04/08/24 06:46 1 TAB Trazodone HCl 100 mg HS PO 04/07/24 22:00 04/07/24 22:04 100 MG Cyclobenzaprine HCl 10 mg Q8HPRN PRN PO 04/07/24 17:30 04/08/24 09:30 10 MG Lidocaine 1 patch DAILY@2200 TOP 04/07/24 22:00 objective Gen.: Patient lying in bed in no apparent distress. On supplemental oxygen. Head: Normocephalic, atraumatic. Eyes: EOMI/PERRLA. Ears: Normal hearing. Normal anatomy. Neck/trachea: Trachea midline, supple. Nose: Normal external anatomy. Mouth: Moist mucous membranes. Chest: Decreased air entry bilaterally. No wheezing or rhonchi. Cardiovascular: Positive S1, positive S2. Regular rate and rhythm. Abdomen: Positive bowel sounds in all 4 quadrants. Soft, non-tender, non- distended. : Deferred. Rectal: Deferred. Skin: Warm, dry. Intact. Extremities: 2+ radial pulses bilaterally. No lower extremity edema. Neuro: Awake, alert, oriented x3. No gross motor or sensory deficits. Cranial nerves II through XII intact. Gait not assessed. laboratory and microbiology Laboratory Tests 04/08/24 05:21 Test 04/08/24 05:21 Range/Units Serum Glucose 99 74-106 mg/dL Assessment/Plan Impression: Acute on chronic hypoxic respiratory failure 2/2 Asthma exacerbation Asthma exacerbation Nicotine dependence COPD DM type II Hypokalemia Lactic acidosis Influenza A and B positive Septic shock vs Distributive component. Atelectasis Events: s/p extubation On supplemental oxygen 2 LPM NC Taper O2 as tolerated ABG reviewed, notable for alkalemia. CXR demonstrates right upper lobe linear atelectasis versus pulmonary edema. Continue antibiotics Continue bronchodilators IV steroids Incentive spirometry HOB elevation Aspiration precautions. Potassium supplementation Monitor renal function. Monitor electrolytes. Supplement as necessary. Labs and imaging reviewed. Rest of plan as noted below. Plan: s/p extubation on 04/06/24. On supplemental oxygen 2 LPM NC Taper O2 as tolerated Off sedation Tamiflu course for influenza - completed Continue antibiotics. Off pressors, hemodynamically stable Monitor renal function Monitor electrolytes. Supplement as necessary. Monitor ins and outs. GI prophylaxis. DVT prophylaxis. Prognosis: Poor given patient's multiple co-morbidities. Rest of plan per hospitalist and other consultants. Thank you Dr. Carroll Hobbs MD, for allowing me to participate in this patient's care. Further recommendations will depend on the patient's clinical course. Please do not hesitate to contact me if you have any questions or concerns. This medical document was created using an electronic medical record system with [employer] dictation system. Although these documentations are being carefully reviewed, there may still be some phonetic and typographical changes. The errors are purely typographical, due to imperfection on the software program, and do not reflect any compromise in the patient's medical care. Dietary Evaluation Review Comments: 1. Advance patient diet when medically feasible to CCHO 45g diet 2. Continue current plan of care. Expected Outcomes/Goals: 1. Patient to advance to PO diet. 2. Patient labs to improve 3. F/u in 2-3 days Plan discussed with: Patient, Other (NAJMA Aggarwal/Vilma) SYLVIE RAMIREZ MD Apr 08, 2024 09:58
[2024-04-08] MEDS ORDERED: LIDOCAINE 5% TOPICAL PATCH TOP SCH (10:00)
--- NOTE | 2024-04-08 14:46 | DVHPN2 ---
Assessment/Plan Assessment/Plan progress note Subjective 64-year-old female with COPD, asthma, CAD admitted for shortness of breath, found to be saturating on 70%, initially placed on BiPAP with no significant improvement, intubated and placed on mechanical ventilation. Patient seen by me today during rounds. comfortable on NC, not wheezing, will need PT work Objective Physical exam alert, recently extubated following commands PERLLA Clear breath sounds, no wheezing, no stridor S1 S2 RRR no murmur Abdomen soft nontender Evans in place No LE edema Drips precedex Lab status quo Imaging CXR interstitial opacity, left IJ cath, ET tube and NG tube in place Assessment and plan Acute hypoxic respiratory failure requiring mechanical ventilation, resolved Distributive shock sedation related vs sepsis, resolved Asthma exacerbation hypertension CAD Diabetes mellitus Influenza A PNA Influenza B PNA Type 1 lactic acidosis resolved Type 2 lactic acidosis 2/2 albuterol transfer to [facility] extubated today titrate down O2 sup Daily SAT/SBT Tamiflu Solumedrol Breathing treatment Ceftriaxone and azithromycin maintain map >65 IVF bolus Insulin sliding scale and fingerstick q.6 Strict ins and out Daily weight remove TLC place midline downgrade to tele pt eval Lines L IJ TLC Evans cath Maintain potassium of 4, phosphate of 3 and magnesium of 2 Diet regular DVT prophylaxis lovenox Condition critical Prognosis poor Plan discussed with: Patient My Orders Orders - JOYCELYN TIDWELL MD Procedure Category Date Status Time Insert Midline ORDERS 04/07/24 Transmitted 14:51 Communication Order ORDERS 04/07/24 Transmitted 14:51 Hydrocodone-Acet PHA 04/07/24 In Process 5/325mg Tab ([place] 15:15 Trazodone Hcl PHA 04/07/24 In Process (Desyrel) 22:00 Cyclobenzaprine PHA 04/07/24 In Process Tablet (Flexeril 17:30 Lidocaine 5% Topical PHA 04/07/24 In Process Patch (Lidoderm 5% 22:00 Date of Service: Apr 08, 2024 Billing Provider: JOYCELYN TIDWELL MD Common Visit Codes: [id number] INP/OBS CARE(HIGH) JOYCELYN TIDWELL MD Apr 08, 2024 14:45
[2024-04-08] MEDS: Ensure HIGH Protein Chocolate 8oz Bottle PO SCH (18:40)
--- NOTE | 2024-04-08 20:40 | DVHPN2 ---
Progress Note - Dictate Date Seen: Apr 08, 2024 Medical Necessity Reason Pt with a Central, PICC or Fol: Yes The following are medically ne: Phillips Catheter Reason for phillips catheter: Strict I&O Subjective Patient seen and examined at bedside. Remains on supplemental oxygen Overnight events reviewed. vital signs Vital Sign Date Time Temp Pulse Resp B/P (MAP) Pulse Ox O2 Delivery O2 Flow Rate FiO2 04/08/24 18:32 105 20 100 04/08/24 18:24 Nasal Cannula* 2 28 04/08/24 17:00 98.4 155/81 (105) 98.4 Total Intake and Output 04/07/24 04/07/24 04/08/24 15:00 23:00 07:00 Intake Total 920 ml 0 ml 300 ml Output Total 2200 ml 350 ml 1500 ml Balance -1280 ml -350 ml -1200 ml medications Current Medications Medications Dose Ordered Sig/Aida Route Start Time Stop Time Status Last Admin Dose Admin Ceftriaxone Sodium 50 ml @ 100 mls/hr DAILY@09 IV 04/02/24 09:00 04/08/24 08:57 100 MLS/HR Azithromycin 250 ml @ 125 mls/hr DAILY IV 04/02/24 10:00 04/08/24 10:16 125 MLS/HR Diagnostic Test (Pha) 1 strip Q6HR 04/02/24 06:00 04/08/24 17:18 1 STRIP Insulin Human Regular Q6HR SC 04/02/24 06:00 04/08/24 17:50 3 UNITS Dextrose 50 ml UD PRN IV 04/02/24 01:00 04/03/24 07:49 50 ML Enoxaparin Sodium 40 mg DAILY SC 04/02/24 10:00 04/08/24 09:00 40 MG Acetaminophen 650 mg Q6HP PRN PO 04/02/24 01:00 Methylprednisolone Sodium Succinate 40 mg DAILY IV 04/02/24 11:15 04/08/24 08:59 40 MG Albuterol 2.5 mg Q4HR NEB 04/02/24 14:00 04/08/24 18:24 2.5 MG Ipratropium [place] 0.5 mg Q4HR NEB 04/02/24 14:00 04/08/24 18:24 0.5 MG Pantoprazole Sodium 40 mg DAILY IV 04/03/24 10:00 04/08/24 08:58 40 MG Enalaprilat 0.625 mg Q6HP PRN IV 04/02/24 16:00 04/07/24 22:09 0.625 MG Losartan Potassium 50 mg DAILY PO 04/04/24 10:00 04/08/24 09:00 50 MG Clonazepam 1 mg Q12HR PO 04/05/24 22:00 04/08/24 09:30 1 MG Amlodipine Besylate 5 mg DAILY PO 04/06/24 10:00 04/08/24 08:58 5 MG Acetaminophen/ Hydrocodone Bitart 1 tab Q6HPRN PRN PO 04/07/24 15:15 04/08/24 15:32 1 TAB Trazodone HCl 100 mg HS PO 04/07/24 22:00 04/07/24 22:04 100 MG Cyclobenzaprine HCl 10 mg Q8HPRN PRN PO 04/07/24 17:30 04/08/24 09:30 10 MG Lidocaine 1 patch DAILY@2200 TOP 04/07/24 22:00 04/08/24 12:52 1 PATCH Enteral Nutritional Formula 240 ml BIDWM PO 04/08/24 18:00 04/08/24 18:40 240 ML objective Gen.: Patient lying in bed in no apparent distress. On supplemental oxygen. Head: Normocephalic, atraumatic. Eyes: EOMI/PERRLA. Ears: Normal hearing. Normal anatomy. Neck/trachea: Trachea midline, supple. Nose: Normal external anatomy. Mouth: Moist mucous membranes. Chest: Decreased air entry bilaterally. No wheezing or rhonchi. Cardiovascular: Positive S1, positive S2. Regular rate and rhythm. Abdomen: Positive bowel sounds in all 4 quadrants. Soft, non-tender, non- distended. : Deferred. Rectal: Deferred. Skin: Warm, dry. Intact. Extremities: 2+ radial pulses bilaterally. No lower extremity edema. Neuro: Awake, alert, oriented x3. No gross motor or sensory deficits. Cranial nerves II through XII intact. Gait not assessed. laboratory and microbiology Laboratory Tests 04/08/24 05:21 Test 04/08/24 05:21 Range/Units Serum Glucose 99 74-106 mg/dL Assessment/Plan Impression: Acute on chronic hypoxic respiratory failure 2/2 Asthma exacerbation Asthma exacerbation Nicotine dependence COPD DM type II Hypokalemia Lactic acidosis Influenza A and B positive Septic shock vs Distributive component. Atelectasis Events: Remains on supplemental oxygen On 1 LPM NC (tapered down from 3 LPM NC) Continue to taper O2 as tolerated Continue antibiotics Continue bronchodilators IV steroids Incentive spirometry HOB elevation Aspiration precautions. PT evaluation Disposition per hospitalist. Labs and imaging reviewed. Rest of plan as noted below. Plan: s/p extubation on 04/06/24. Supplemental oxygen Titrate to keep O2 sats above 92%. Off sedation Tamiflu course for influenza - completed Continue antibiotics. Off pressors, hemodynamically stable Monitor renal function Monitor electrolytes. Supplement as necessary. Monitor ins and outs. GI prophylaxis. DVT prophylaxis. Prognosis: Poor given patient's multiple co-morbidities. Rest of plan per hospitalist and other consultants. Thank you Dr. Carroll Hobbs MD, for allowing me to participate in this patient's care. Further recommendations will depend on the patient's clinical course. Please do not hesitate to contact me if you have any questions or concerns. This medical document was created using an electronic medical record system with [employer] dictation system. Although these documentations are being carefully reviewed, there may still be some phonetic and typographical changes. The errors are purely typographical, due to imperfection on the software program, and do not reflect any compromise in the patient's medical care. Dietary Evaluation Review Comments: 1. Advance patient diet when medically feasible to CCHO 45g diet 2. Continue current plan of care. Expected Outcomes/Goals: 1. Patient to advance to PO diet. 2. Patient labs to improve 3. F/u in 2-3 days Plan discussed with: Patient, Other (NAJMA Aggarwal) SYLVIE RAMIREZ MD Apr 08, 2024 20:40
[2024-04-09] VITALS (18 sets, daily range): BP systolic 111–170; BP diastolic 76–86; PULSE 78–107; RESP 16–22; TEMP 97.6–98.8; O2SAT 95–100
[2024-04-09 05:55] LABS: Potassium 3.8 mmol/L (3.5-5.1); Sodium 144 mmol/L (136-145)
[2024-04-09 05:56] LABS: Anion Gap 5 (5-15); Calcium 9.3 mg/dL (8.7-10.4)
[2024-04-09 05:59] LABS: Basophils # (auto) 0.1 10 ^3/uL (0-0.2); Eosinophils # (auto) 0.1 10 ^3/uL (0-0.8); Eosinophils % (auto) 0.8 % (0.0-7.0); Hematocrit 29.8 % (36.0-46.0); Hemoglobin 9.4 g/dL (12.2-16.2); Lymphocytes # (auto) 3.2 10 ^3/uL (0.4-5.4); Lymphocytes % (auto) 28.6 % (10.0-50.0); Mean Corpuscular Hemoglobin 28.5 pg (28.0-32.0); Mean Corpuscular Hgb Conc. 31.6 g/dL (32.0-36.0); Mean Corpuscular Volume 89.9 fL (80.0-100.0); Monocytes # (auto) 1.3 10 ^3/uL (0-1.3); Monocytes % (auto) 11.9 % (0.0-12.0); Neutrophils # (auto) 6.4 10 ^3/uL (1.6-8.6); Neutrophils % (auto) 57.7 % (37.0-80.0); Platelet Count (auto) 175 10^3/uL (140-450); Red Blood Cells 3.31 10^6/uL (4.0-5.20); Red Cell Distribution Width 16.2 % (11.8-14.3); White Blood Cell 11.1 10^3/uL (4.4-10.8)
[2024-04-09 06:01] LABS: BUN/Creatinine Ratio 24.5 (10.0-20.0); Blood Urea Nitrogen 13 mg/dL (9-23)
[2024-04-09 06:08] LABS: Carbon Dioxide 31 mmol/L (20-31); Chloride 108 mmol/L (98-107); Glucose 74 mg/dL (74-106)
--- NOTE | 2024-04-09 15:31 | DVHPN2 ---
Assessment/Plan Assessment/Plan progress note Subjective 64-year-old female with COPD, asthma, CAD admitted for shortness of breath, found to be saturating on 70%, initially placed on BiPAP with no significant improvement, intubated and placed on mechanical ventilation. Patient seen by me today during rounds. working with PT, back pain persists Objective Physical exam alert, recently extubated following commands PERLLA Clear breath sounds, no wheezing, no stridor S1 S2 RRR no murmur Abdomen soft nontender Evans in place No LE edema Drips precedex Lab status quo Imaging CXR interstitial opacity, left IJ cath, ET tube and NG tube in place Assessment and plan Acute hypoxic respiratory failure requiring mechanical ventilation, resolved Distributive shock sedation related vs sepsis, resolved Asthma exacerbation hypertension CAD Diabetes mellitus Influenza A PNA Influenza B PNA Type 1 lactic acidosis resolved Type 2 lactic acidosis 2/2 albuterol transfer to [facility] extubated today titrate down O2 sup Daily SAT/SBT Tamiflu Solumedrol Breathing treatment Ceftriaxone and azithromycin maintain map >65 IVF bolus Insulin sliding scale and fingerstick q.6 Strict ins and out Daily weight remove TLC place midline downgrade to tele pt eval Lines midline Evans cath Maintain potassium of 4, phosphate of 3 and magnesium of 2 Diet regular DVT prophylaxis lovenox Condition critical Prognosis poor Plan discussed with: Patient My Orders Orders - JOYCELYN TIDWELL MD Procedure Category Date Status Time Amlodipine Tablet PHA 04/10/24 Transmitted (Norvasc Tablet) 10:00 Date of Service: Apr 09, 2024 Billing Provider: JOYCELYN TIDWELL MD Common Visit Codes: [id number] INP/OBS CARE(HIGH) JOYCELYN TIDWELL MD Apr 09, 2024 15:31
[2024-04-09] MEDS: predniSONE 20 MG TAB PO SCH (21:00)
--- NOTE | 2024-04-09 22:43 | DVHPN2 ---
Progress Note - Dictate Date Seen: Apr 09, 2024 Medical Necessity Reason Pt with a Central, PICC or Fol: Yes The following are medically ne: Phillips Catheter Reason for phillips catheter: Strict I&O Subjective Patient seen and examined at bedside. Remains on supplemental oxygen Overnight events reviewed. vital signs Vital Sign Date Time Temp Pulse Resp B/P (MAP) Pulse Ox O2 Delivery O2 Flow Rate FiO2 04/09/24 21:20 100 18 99 04/09/24 21:13 Nasal Cannula* 2 28 04/09/24 21:00 98.8 170/86 (114) 98.8 Total Intake and Output 04/08/24 04/08/24 04/09/24 15:00 23:00 07:00 Intake Total 300 ml 600 ml 300 ml Output Total 1450 ml 900 ml Balance 300 ml -850 ml -600 ml medications Current Medications Medications Dose Ordered Sig/Aida Route Start Time Stop Time Status Last Admin Dose Admin Ceftriaxone Sodium 50 ml @ 100 mls/hr DAILY@09 IV 04/02/24 09:00 04/09/24 09:37 100 MLS/HR Azithromycin 250 ml @ 125 mls/hr DAILY IV 04/02/24 10:00 04/09/24 09:38 125 MLS/HR Diagnostic Test (Pha) 1 strip Q6HR 04/02/24 06:00 04/09/24 18:00 1 STRIP Insulin Human Regular Q6HR SC 04/02/24 06:00 04/09/24 18:00 2 UNITS Dextrose 50 ml UD PRN IV 04/02/24 01:00 04/03/24 07:49 50 ML Enoxaparin Sodium 40 mg DAILY SC 04/02/24 10:00 04/09/24 09:41 40 MG Acetaminophen 650 mg Q6HP PRN PO 04/02/24 01:00 Albuterol 2.5 mg Q4HR NEB 04/02/24 14:00 04/09/24 21:10 2.5 MG Ipratropium [place] 0.5 mg Q4HR NEB 04/02/24 14:00 04/09/24 21:10 0.5 MG Pantoprazole Sodium 40 mg DAILY IV 04/03/24 10:00 04/09/24 09:38 40 MG Enalaprilat 0.625 mg Q6HP PRN IV 04/02/24 16:00 04/08/24 21:29 0.625 MG Losartan Potassium 50 mg DAILY PO 04/04/24 10:00 04/09/24 09:39 50 MG Clonazepam 1 mg Q12HR PO 04/05/24 22:00 04/09/24 21:00 1 MG Acetaminophen/ Hydrocodone Bitart 1 tab Q6HPRN PRN PO 04/07/24 15:15 04/09/24 18:44 1 TAB Trazodone HCl 100 mg HS PO 04/07/24 22:00 04/09/24 21:00 100 MG Cyclobenzaprine HCl 10 mg Q8HPRN PRN PO 04/07/24 17:30 04/08/24 09:30 10 MG Lidocaine 1 patch DAILY@2200 TOP 04/07/24 22:00 04/09/24 21:01 1 PATCH Enteral Nutritional Formula 240 ml BIDWM PO 04/08/24 18:00 04/09/24 18:22 240 ML Prednisone 20 mg BID PO 04/09/24 22:00 04/14/24 00:00 04/09/24 21:00 20 MG Amlodipine Besylate 10 mg DAILY PO 04/10/24 10:00 objective Gen.: Patient lying in bed in no apparent distress. On supplemental oxygen. Head: Normocephalic, atraumatic. Eyes: EOMI/PERRLA. Ears: Normal hearing. Normal anatomy. Neck/trachea: Trachea midline, supple. Nose: Normal external anatomy. Mouth: Moist mucous membranes. Chest: Decreased air entry bilaterally. No wheezing or rhonchi. Cardiovascular: Positive S1, positive S2. Regular rate and rhythm. Abdomen: Positive bowel sounds in all 4 quadrants. Soft, non-tender, non- distended. : Deferred. Rectal: Deferred. Skin: Warm, dry. Intact. Extremities: 2+ radial pulses bilaterally. No lower extremity edema. Neuro: Awake, alert, oriented x3. No gross motor or sensory deficits. Cranial nerves II through XII intact. Gait not assessed. laboratory and microbiology Laboratory Tests 04/09/24 05:10 Test 04/09/24 05:10 Range/Units Serum Glucose 74 74-106 mg/dL Assessment/Plan Impression: Acute on chronic hypoxic respiratory failure 2/2 Asthma exacerbation Asthma exacerbation Nicotine dependence COPD DM type II Hypokalemia Lactic acidosis Influenza A and B positive Septic shock vs Distributive component. Atelectasis Events: Remains on supplemental oxygen On 1 LPM NC Taper O2 as tolerated Assess for home O2 requirements. Continue antibiotics IV steroids- taper to prednisone 20 mg po BID x5 days Incentive spirometry HOB elevation Aspiration precautions. Patient is stable for discharge from the pulmonary standpoint. Disposition per hospitalist. Labs and imaging reviewed. Rest of plan as noted below. Plan: s/p extubation on 04/06/24. Supplemental oxygen Titrate to keep O2 sats above 92%. Off sedation Off pressors, hemodynamically stable Tamiflu course for influenza - completed Continue antibiotics. Continue steroids Monitor renal function Monitor electrolytes. Supplement as necessary. Monitor ins and outs. GI prophylaxis. DVT prophylaxis. Prognosis: Poor given patient's multiple co-morbidities. Rest of plan per hospitalist and other consultants. Thank you Dr. Carroll Hobbs MD, for allowing me to participate in this patient's care. Further recommendations will depend on the patient's clinical course. Please do not hesitate to contact me if you have any questions or concerns. This medical document was created using an electronic medical record system with [employer] dictation system. Although these documentations are being carefully reviewed, there may still be some phonetic and typographical changes. The errors are purely typographical, due to imperfection on the software program, and do not reflect any compromise in the patient's medical care. Dietary Evaluation Review Comments: 1. Advance patient diet when medically feasible to CCHO 45g diet 2. Continue current plan of care. Expected Outcomes/Goals: 1. Patient to advance to PO diet. 2. Patient labs to improve 3. F/u in 2-3 days Plan discussed with: Patient, Other (NAJMA Sung) SYLVIE RAMIREZ MD Apr 09, 2024 22:43
[2024-04-10] VITALS (21 sets, daily range): BP systolic 148–169; BP diastolic 72–89; PULSE 82–113; RESP 16–18; TEMP 97.8–98.4; O2SAT 94–100
[2024-04-10] MEDS: amLODIPine BESYLATE 5 MG TAB PO SCH (08:43)
--- NOTE | 2024-04-10 12:41 | DVHPN2 ---
Assessment/Plan Assessment/Plan progress note Subjective 64-year-old female with COPD, asthma, CAD admitted for shortness of breath, found to be saturating on 70%, initially placed on BiPAP with no significant improvement, intubated and placed on mechanical ventilation. Patient seen by me today during rounds. scheduled and PRN pain meds for back pain, scheduled flexeril. PT. patient for home PT Objective Physical exam alert, recently extubated following commands PERLLA Clear breath sounds, no wheezing, no stridor S1 S2 RRR no murmur Abdomen soft nontender Evans in place No LE edema Lab status quo Imaging CXR interstitial opacity, left IJ cath, ET tube and NG tube in place Assessment and plan Acute hypoxic respiratory failure requiring mechanical ventilation, resolved Distributive shock sedation related vs sepsis, resolved Asthma exacerbation hypertension CAD Diabetes mellitus Influenza A PNA Influenza B PNA Type 1 lactic acidosis resolved Type 2 lactic acidosis 2/2 albuterol LBP likely spasm transfer to [facility] extubated today titrate down O2 sup Daily SAT/SBT Tamiflu prednisone Breathing treatment Ceftriaxone and azithromycin maintain map >65 IVF bolus Insulin sliding scale and fingerstick q.6 Strict ins and out Daily weight remove TLC place midline downgrade to tele pt eval Lines midline Evans cath Maintain potassium of 4, phosphate of 3 and magnesium of 2 Diet regular DVT prophylaxis lovenox Condition critical Prognosis poor Plan discussed with: Patient My Orders Orders - JOYCELYN TIDWELL MD Procedure Category Date Status Time Amlodipine Tablet PHA 04/10/24 In Process (Norvasc Tablet) 10:00 * Quality System Manager CONS 04/09/24 Transmitted Consult 15:32 Cyclobenzaprine PHA 04/10/24 Logged Tablet (Flexeril 14:00 Acetaminophen Tablet PHA 04/10/24 Logged (Tylenol Tablet) 14:00 Date of Service: Apr 10, 2024 Billing Provider: JOYCELYN TIDWELL MD Common Visit Codes: [id number] INP/OBS CARE(HIGH) JOYCELYN TIDWELL MD Apr 10, 2024 12:41
[2024-04-10] MEDS ORDERED: KETOROLAC TROMETH 30 MG/ML 1ML VIAL IV PRN (12:45)
[2024-04-10] MEDS: CYCLOBENZAPRINE HCL 10 MG TAB PO SCH (14:27)
[2024-04-10] MEDS: ACETAMINOPHEN 325 MG TAB PO SCH (14:28)
--- NOTE | 2024-04-10 16:27 | MEDREC ---
[facility] ASP Intervention Section I [facility] ASP Intervention: IV to PO conversion (PATIENT IS AFEBRILE, HAS HIGH BP, HAS BEEN TOLERATING SOFT DIET SINCE 04/07. PATIENT IS CURRENTLY ON DAY 9 OF ABX THERAPY. CONSIDER CHANGING IV AZITHROMYCIN TO PO DOXY DUE TO QTc PROLONGATION. ) MAXIMUS BENNETT PHARMACIST Apr 10, 2024 16:27
[2024-04-10] MEDS: Glucerna Carbsteady SHAKE Vanilla 8oz PO SCH (18:27)
--- NOTE | 2024-04-10 23:06 | DVHPN2 ---
Progress Note - Dictate Date Seen: Apr 10, 2024 Medical Necessity Reason Pt with a Central, PICC or Fol: Yes The following are medically ne: Phillips Catheter Reason for phillips catheter: Strict I&O Subjective Patient seen and examined at bedside. Remains on supplemental oxygen Overnight events reviewed. vital signs Vital Sign Date Time Temp Pulse Resp B/P (MAP) Pulse Ox O2 Delivery O2 Flow Rate FiO2 04/10/24 22:28 88 18 100 04/10/24 22:23 Nasal Cannula 1.0 04/10/24 22:23 24 04/10/24 21:00 98.2 148/72 (97) 98.2 Total Intake and Output 04/09/24 04/09/24 04/10/24 15:00 23:00 07:00 Intake Total 300 ml 525 ml 500 ml Output Total 1450 ml 1950 ml Balance 300 ml -925 ml -1450 ml medications Current Medications Medications Dose Ordered Sig/Aida Route Start Time Stop Time Status Last Admin Dose Admin Ceftriaxone Sodium 50 ml @ 100 mls/hr DAILY@09 IV 04/02/24 09:00 04/10/24 08:36 100 MLS/HR Azithromycin 250 ml @ 125 mls/hr DAILY IV 04/02/24 10:00 04/10/24 08:39 125 MLS/HR Diagnostic Test (Pha) 1 strip Q6HR 04/02/24 06:00 04/10/24 18:25 1 STRIP Insulin Human Regular Q6HR SC 04/02/24 06:00 04/10/24 18:26 3 UNITS Dextrose 50 ml UD PRN IV 04/02/24 01:00 04/03/24 07:49 50 ML Enoxaparin Sodium 40 mg DAILY SC 04/02/24 10:00 04/10/24 08:44 40 MG Albuterol 2.5 mg Q4HR NEB 04/02/24 14:00 04/10/24 22:23 2.5 MG Ipratropium [place] 0.5 mg Q4HR NEB 04/02/24 14:00 04/10/24 22:23 0.5 MG Pantoprazole Sodium 40 mg DAILY IV 04/03/24 10:00 04/10/24 08:44 40 MG Enalaprilat 0.625 mg Q6HP PRN IV 04/02/24 16:00 04/08/24 21:29 0.625 MG Losartan Potassium 50 mg DAILY PO 04/04/24 10:00 04/10/24 08:43 50 MG Clonazepam 1 mg Q12HR PO 04/05/24 22:00 04/10/24 21:03 1 MG Trazodone HCl 100 mg HS PO 04/07/24 22:00 04/10/24 21:04 100 MG Lidocaine 1 patch DAILY@2200 TOP 04/07/24 22:00 04/10/24 21:04 1 PATCH Prednisone 20 mg BID PO 04/09/24 22:00 04/14/24 00:00 04/10/24 21:03 20 MG Amlodipine Besylate 10 mg DAILY PO 04/10/24 10:00 04/10/24 08:43 10 MG Cyclobenzaprine HCl 10 mg Q8HR PO 04/10/24 14:00 04/10/24 21:03 10 MG Acetaminophen 650 mg Q8HR PO 04/10/24 14:00 04/10/24 21:03 650 MG Ketorolac Tromethamine 15 mg Q6HPRN PRN IV 04/10/24 12:45 04/15/24 12:44 Enteral Nutritional Formula 240 ml BIDWM PO 04/10/24 18:00 04/10/24 18:27 240 ML objective Gen.: Patient lying in bed in no apparent distress. On supplemental oxygen. Head: Normocephalic, atraumatic. Eyes: EOMI/PERRLA. Ears: Normal hearing. Normal anatomy. Neck/trachea: Trachea midline, supple. Nose: Normal external anatomy. Mouth: Moist mucous membranes. Chest: Decreased air entry bilaterally. No wheezing or rhonchi. Cardiovascular: Positive S1, positive S2. Regular rate and rhythm. Abdomen: Positive bowel sounds in all 4 quadrants. Soft, non-tender, non- distended. : Deferred. Rectal: Deferred. Skin: Warm, dry. Intact. Extremities: 2+ radial pulses bilaterally. No lower extremity edema. Neuro: Awake, alert, oriented x3. No gross motor or sensory deficits. Cranial nerves II through XII intact. Gait not assessed. laboratory and microbiology Laboratory Tests 04/09/24 05:10 Test 04/09/24 05:10 Range/Units Serum Glucose 74 74-106 mg/dL Assessment/Plan Impression: Acute on chronic hypoxic respiratory failure 2/2 Asthma exacerbation Asthma exacerbation Nicotine dependence COPD DM type II Hypokalemia Lactic acidosis Influenza A and B positive Septic shock vs Distributive component. Atelectasis Events: Remains on supplemental oxygen On 1 LPM NC Taper O2 as tolerated Assess for home O2 requirements. Continue antibiotics Continue bronchodilators Continue steroids- prednisone 20 mg po BID x5 days Incentive spirometry HOB elevation Aspiration precautions. Pain control Avoid oversedation Patient is stable for discharge from the pulmonary standpoint. Disposition per hospitalist. Labs and imaging reviewed. Rest of plan as noted below. Plan: s/p extubation on 04/06/24. Supplemental oxygen Titrate to keep O2 sats above 92%. Off sedation Off pressors, hemodynamically stable Tamiflu course for influenza - completed Continue antibiotics. Continue steroids Monitor renal function Monitor electrolytes. Supplement as necessary. Monitor ins and outs. GI prophylaxis. DVT prophylaxis. Prognosis: Poor given patient's multiple co-morbidities. Rest of plan per hospitalist and other consultants. Thank you Dr. Carroll Hobbs MD, for allowing me to participate in this patient's care. Further recommendations will depend on the patient's clinical course. Please do not hesitate to contact me if you have any questions or concerns. This medical document was created using an electronic medical record system with [employer] dictation system. Although these documentations are being carefully reviewed, there may still be some phonetic and typographical changes. The errors are purely typographical, due to imperfection on the software program, and do not reflect any compromise in the patient's medical care. Dietary Evaluation Review Comments: 1. Advance patient diet when medically feasible to CCHO 45g diet 2. Continue current plan of care. Expected Outcomes/Goals: 1. Patient to advance to PO diet. 2. Patient labs to improve 3. F/u in 2-3 days Plan discussed with: Patient, Other (NAJMA Gauthier) SYLVIE RAMIREZ MD Apr 10, 2024 23:06
[2024-04-11] VITALS (20 sets, daily range): BP systolic 140–158; BP diastolic 61–87; PULSE 81–108; RESP 16–20; TEMP 97.8–98.4; O2SAT 93–100
[2024-04-11 09:48] LABS: Base Excess 1.1 mmol/L (-2.0-3.0)
--- NOTE | 2024-04-11 13:27 | DVHPN2 ---
Assessment/Plan Assessment/Plan progress note Subjective 64-year-old female with COPD, asthma, CAD admitted for shortness of breath, found to be saturating on 70%, initially placed on BiPAP with no significant improvement, intubated and placed on mechanical ventilation. Patient seen by me today during rounds. ss consult placed, pending acceptance. abg done, will req home o2 Objective Physical exam alert, recently extubated following commands PERLLA Clear breath sounds, no wheezing, no stridor S1 S2 RRR no murmur Abdomen soft nontender Evans in place No LE edema Lab status quo Imaging CXR interstitial opacity, left IJ cath, ET tube and NG tube in place Assessment and plan Acute hypoxic respiratory failure requiring mechanical ventilation, resolved Distributive shock sedation related vs sepsis, resolved Asthma exacerbation hypertension CAD Diabetes mellitus Influenza A PNA Influenza B PNA Type 1 lactic acidosis resolved Type 2 lactic acidosis 2/2 albuterol LBP likely spasm transfer to [facility] extubated today titrate down O2 sup Daily SAT/SBT Tamiflu prednisone Breathing treatment Ceftriaxone and azithromycin maintain map >65 IVF bolus Insulin sliding scale and fingerstick q.6 Strict ins and out Daily weight remove TLC place midline downgrade to tele pt eval Lines midline Evans cath Maintain potassium of 4, phosphate of 3 and magnesium of 2 Diet regular DVT prophylaxis lovenox Condition critical Prognosis poor Plan discussed with: Patient My Orders Orders - JOYCELYN TIDWELL MD Procedure Category Date Status Time Nutritional PHA 04/10/24 In Process Supplements (Glucerna 18:00 Abg W/ Co-Ox RT 04/11/24 Logged 08:41 * Night Nurse CONS 04/11/24 Transmitted Consult 09:51 Date of Service: Apr 11, 2024 Billing Provider: JOYCELYN TIDWELL MD Common Visit Codes: [id number] INP/OBS CARE(HIGH) JOYCELYN TIDWELL MD Apr 11, 2024 13:27
--- NOTE | 2024-04-11 23:17 | DVHPN2 ---
Progress Note - Dictate Date Seen: Apr 11, 2024 Medical Necessity Reason Pt with a Central, PICC or Fol: Yes The following are medically ne: Phillips Catheter Reason for phillips catheter: Strict I&O Subjective Patient seen and examined at bedside. Remains on supplemental oxygen Overnight events reviewed. vital signs Vital Sign Date Time Temp Pulse Resp B/P (MAP) Pulse Ox O2 Delivery O2 Flow Rate FiO2 04/11/24 22:40 91 20 100 04/11/24 21:00 98.4 157/86 (109) 98.4 04/11/24 19:40 Nasal Cannula 1.0 04/11/24 19:40 24 Total Intake and Output 04/10/24 04/10/24 04/11/24 15:00 23:00 07:00 Intake Total 300 ml 2000 ml 800 ml Output Total 900 ml 400 ml Balance 300 ml 1100 ml 400 ml medications Current Medications Medications Dose Ordered Sig/Aida Route Start Time Stop Time Status Last Admin Dose Admin Ceftriaxone Sodium 50 ml @ 100 mls/hr DAILY@09 IV 04/02/24 09:00 04/11/24 11:27 100 MLS/HR Azithromycin 250 ml @ 125 mls/hr DAILY IV 04/02/24 10:00 04/10/24 08:39 125 MLS/HR Diagnostic Test (Pha) 1 strip Q6HR 04/02/24 06:00 04/10/24 18:25 1 STRIP Insulin Human Regular Q6HR SC 04/02/24 06:00 04/10/24 18:26 3 UNITS Dextrose 50 ml UD PRN IV 04/02/24 01:00 04/03/24 07:49 50 ML Enoxaparin Sodium 40 mg DAILY SC 04/02/24 10:00 04/11/24 11:28 40 MG Albuterol 2.5 mg Q4HR NEB 04/02/24 14:00 04/11/24 22:42 2.5 MG Ipratropium [place] 0.5 mg Q4HR NEB 04/02/24 14:00 04/11/24 22:42 0.5 MG Pantoprazole Sodium 40 mg DAILY IV 04/03/24 10:00 04/11/24 11:27 40 MG Enalaprilat 0.625 mg Q6HP PRN IV 04/02/24 16:00 04/08/24 21:29 0.625 MG Losartan Potassium 50 mg DAILY PO 04/04/24 10:00 04/11/24 11:26 50 MG Clonazepam 1 mg Q12HR PO 04/05/24 22:00 04/11/24 21:57 1 MG Trazodone HCl 100 mg HS PO 04/07/24 22:00 04/11/24 21:57 100 MG Lidocaine 1 patch DAILY@2200 TOP 04/07/24 22:00 04/11/24 21:57 1 PATCH Prednisone 20 mg BID PO 04/09/24 22:00 04/14/24 00:00 04/11/24 21:57 20 MG Amlodipine Besylate 10 mg DAILY PO 04/10/24 10:00 04/11/24 11:26 10 MG Cyclobenzaprine HCl 10 mg Q8HR PO 04/10/24 14:00 04/11/24 21:57 10 MG Acetaminophen 650 mg Q8HR PO 04/10/24 14:00 04/11/24 21:57 650 MG Enteral Nutritional Formula 240 ml BIDWM PO 04/10/24 18:00 04/11/24 18:51 240 ML objective Gen.: Patient lying in bed in no apparent distress. On supplemental oxygen. Head: Normocephalic, atraumatic. Eyes: EOMI/PERRLA. Ears: Normal hearing. Normal anatomy. Neck/trachea: Trachea midline, supple. Nose: Normal external anatomy. Mouth: Moist mucous membranes. Chest: Decreased air entry bilaterally. No wheezing or rhonchi. Cardiovascular: Positive S1, positive S2. Regular rate and rhythm. Abdomen: Positive bowel sounds in all 4 quadrants. Soft, non-tender, non- distended. : Deferred. Rectal: Deferred. Skin: Warm, dry. Intact. Extremities: 2+ radial pulses bilaterally. No lower extremity edema. Neuro: Awake, alert, oriented x3. No gross motor or sensory deficits. Cranial nerves II through XII intact. Gait not assessed. laboratory and microbiology Laboratory Tests 04/09/24 05:10 Test 04/09/24 05:10 Range/Units Serum Glucose 74 74-106 mg/dL Assessment/Plan Impression: Acute on chronic hypoxic respiratory failure 2/2 Asthma exacerbation Asthma exacerbation Nicotine dependence COPD DM type II Hypokalemia Lactic acidosis Influenza A and B positive Septic shock vs Distributive component. Atelectasis Events: Remains on supplemental oxygen On 1 LPM [place] Continue to taper as tolerated Arrange for home O2. ABG reviewed, compensated PaO2 of 53.2 mmHg Continue antibiotics Continue bronchodilators Continue steroids- prednisone 20 mg po BID x5 days Incentive spirometry HOB elevation Aspiration precautions. Pain control Avoid oversedation Patient is stable for discharge from the pulmonary standpoint. Disposition per hospitalist. Labs and imaging reviewed. Rest of plan as noted below. Plan: s/p extubation on 04/06/24. Supplemental oxygen Titrate to keep O2 sats above 92%. Off sedation Off pressors, hemodynamically stable Tamiflu course for influenza - completed Continue antibiotics. Continue steroids Monitor renal function Monitor electrolytes. Supplement as necessary. Monitor ins and outs. GI prophylaxis. DVT prophylaxis. Prognosis: Poor given patient's multiple co-morbidities. Rest of plan per hospitalist and other consultants. Thank you Dr. Carroll Hobbs MD, for allowing me to participate in this patient's care. Further recommendations will depend on the patient's clinical course. Please do not hesitate to contact me if you have any questions or concerns. This medical document was created using an electronic medical record system with [employer] dictation system. Although these documentations are being carefully reviewed, there may still be some phonetic and typographical changes. The errors are purely typographical, due to imperfection on the software program, and do not reflect any compromise in the patient's medical care. Dietary Evaluation Review Comments: 1. [facility] when medically [facility] 2. Continue current plan of care. Expected Outcomes/Goals: 1. Patient to advance to PO diet. 2. Patient labs to improve 3. F/u in 2-3 days Plan discussed with: Patient, Other (NAJMA Rosenthal) SYLVIE RAMIREZ MD Apr 11, 2024 23:17
[2024-04-12] VITALS (19 sets, daily range): BP systolic 105–158; BP diastolic 66–82; PULSE 84–111; RESP 17–20; TEMP 98.1–98.8; O2SAT 96–100
--- NOTE | 2024-04-12 16:35 | DVHPN2 ---
Progress Note - Dictate Date Seen: Apr 12, 2024 Medical Necessity Reason Pt with a Central, PICC or Fol: Yes The following are medically ne: Phillips Catheter Reason for phillips catheter: Strict I&O Subjective Patient seen and examined at bedside. Remains on supplemental oxygen Overnight events reviewed. vital signs Vital Sign Date Time Temp Pulse Resp B/P (MAP) Pulse Ox O2 Delivery O2 Flow Rate FiO2 04/12/24 14:38 98.6 04/12/24 14:19 88 18 100 04/12/24 14:04 Nasal Cannula 1.0 04/12/24 14:04 24 04/12/24 13:39 148/77 Total Intake and Output 04/11/24 04/11/24 04/12/24 15:00 23:00 07:00 Intake Total 50 ml 600 ml 600 ml Output Total 950 ml 400 ml Balance 50 ml -350 ml 200 ml medications Current Medications Medications Dose Ordered Sig/Aida Route Start Time Stop Time Status Last Admin Dose Admin Ceftriaxone Sodium 50 ml @ 100 mls/hr DAILY@09 IV 04/02/24 09:00 04/12/24 11:55 100 MLS/HR Azithromycin 250 ml @ 125 mls/hr DAILY IV 04/02/24 10:00 04/12/24 13:39 125 MLS/HR Diagnostic Test (Pha) 1 strip Q6HR 04/02/24 06:00 04/12/24 11:56 1 STRIP Insulin Human Regular Q6HR SC 04/02/24 06:00 04/12/24 06:19 2 UNITS Dextrose 50 ml UD PRN IV 04/02/24 01:00 04/03/24 07:49 50 ML Enoxaparin Sodium 40 mg DAILY SC 04/02/24 10:00 04/12/24 11:56 40 MG Albuterol 2.5 mg Q4HR NEB 04/02/24 14:00 04/12/24 14:04 2.5 MG Ipratropium [place] 0.5 mg Q4HR NEB 04/02/24 14:00 04/12/24 14:04 0.5 MG Pantoprazole Sodium 40 mg DAILY IV 04/03/24 10:00 04/12/24 11:55 40 MG Enalaprilat 0.625 mg Q6HP PRN IV 04/02/24 16:00 04/08/24 21:29 0.625 MG Losartan Potassium 50 mg DAILY PO 04/04/24 10:00 04/12/24 13:39 50 MG Clonazepam 1 mg Q12HR PO 04/05/24 22:00 04/12/24 11:56 1 MG Trazodone HCl 100 mg HS PO 04/07/24 22:00 04/11/24 21:57 100 MG Lidocaine 1 patch DAILY@2200 TOP 04/07/24 22:00 04/11/24 21:57 1 PATCH Prednisone 20 mg BID PO 04/09/24 22:00 04/14/24 00:00 04/12/24 11:55 20 MG Amlodipine Besylate 10 mg DAILY PO 04/10/24 10:00 04/12/24 13:39 10 MG Cyclobenzaprine HCl 10 mg Q8HR PO 04/10/24 14:00 04/12/24 13:38 10 MG Acetaminophen 650 mg Q8HR PO 04/10/24 14:00 04/12/24 13:38 650 MG Enteral Nutritional Formula 240 ml BIDWM PO 04/10/24 18:00 04/12/24 11:20 240 ML objective Gen.: Patient lying in bed in no apparent distress. On supplemental oxygen. Head: Normocephalic, atraumatic. Eyes: EOMI/PERRLA. Ears: Normal hearing. Normal anatomy. Neck/trachea: Trachea midline, supple. Nose: Normal external anatomy. Mouth: Moist mucous membranes. Chest: Decreased air entry bilaterally. No wheezing or rhonchi. Cardiovascular: Positive S1, positive S2. Regular rate and rhythm. Abdomen: Positive bowel sounds in all 4 quadrants. Soft, non-tender, non- distended. : Deferred. Rectal: Deferred. Skin: Warm, dry. Intact. Extremities: 2+ radial pulses bilaterally. No lower extremity edema. Neuro: Awake, alert, oriented x3. No gross motor or sensory deficits. Cranial nerves II through XII intact. Gait not assessed. laboratory and microbiology Laboratory Tests 04/09/24 05:10 Test 04/09/24 05:10 Range/Units Serum Glucose 74 74-106 mg/dL Assessment/Plan Impression: Acute on chronic hypoxic respiratory failure 2/2 Asthma exacerbation Asthma exacerbation Nicotine dependence COPD DM type II Hypokalemia Lactic acidosis Influenza A and B positive Septic shock vs Distributive component. Atelectasis Events: Remains on supplemental oxygen On 1 LPM [place] Continue to taper as tolerated Arrange for home O2. Continue antibiotics Continue bronchodilators Continue steroids- prednisone 20 mg po BID x5 days Incentive spirometry HOB elevation Aspiration precautions. Pain control Avoid oversedation Patient is stable for discharge from the pulmonary standpoint. Disposition per hospitalist. Labs and imaging reviewed. Rest of plan as noted below. Plan: s/p extubation on 04/06/24. Supplemental oxygen Titrate to keep O2 sats above 92%. Off sedation Off pressors, hemodynamically stable Tamiflu course for influenza - completed Continue antibiotics. Continue steroids Monitor renal function Monitor electrolytes. Supplement as necessary. Monitor ins and outs. GI prophylaxis. DVT prophylaxis. Prognosis: Poor given patient's multiple co-morbidities. Rest of plan per hospitalist and other consultants. Thank you Dr. Carroll Hobbs MD, for allowing me to participate in this patient's care. Further recommendations will depend on the patient's clinical course. Please do not hesitate to contact me if you have any questions or concerns. This medical document was created using an electronic medical record system with [employer] dictation system. Although these documentations are being carefully reviewed, there may still be some phonetic and typographical changes. The errors are purely typographical, due to imperfection on the software program, and do not reflect any compromise in the patient's medical care. Dietary Evaluation Review Comments: 1. Advance patient diet when medically feasible to CCHO 45g diet 2. Continue current plan of care. Expected Outcomes/Goals: 1. Patient to advance to PO diet. 2. Patient labs to improve 3. F/u in 2-3 days Plan discussed with: Patient, Other (NAJMA Tang) SYLVIE RAMIREZ MD Apr 12, 2024 16:35
--- NOTE | 2024-04-12 17:14 | DVHPN2 ---
Subjective c/o body aches/denies any diarrhea.//dysuria/trauma Changes from previous H/P or p: No Changes Objective Vitals Vital Signs Date Time Temp Pulse Resp B/P (MAP) Pulse Ox O2 Delivery O2 Flow Rate FiO2 04/12/24 17:00 98.8 102 20 147/76 (99) 96 98.8 04/12/24 14:04 Nasal Cannula 1.0 04/12/24 14:04 24 Intake/Output Intake and Output 04/12/24 07:00 Intake Total 1250 ml Output Total 1350 ml Balance -100 ml Intake Oral 1200 ml IV Total 50 ml Output Urine Total 1350 ml General Appearance: Alert, Oriented X3, Cooperative, No acute distress Lungs: Clear to auscultation Cardiovascular: Regular rate, Normal S1, Normal S2 Musculoskeletal: Normal sensory function, Normal motor function Extremities: No edema Neuro: Normal gait, Normal speech, Strength at 5/5 X4 ext, Normal tone, S ensation intact, Cranial nerves 3-12 NL Psych/Mental Status: Mental status NL Medications Current Medications Medications Dose Ordered Sig/Aida Route Start Time Stop Time Status Last Admin Dose Admin Ceftriaxone Sodium 50 ml @ 100 mls/hr DAILY@09 IV 04/02/24 09:00 04/12/24 11:55 100 MLS/HR Azithromycin 250 ml @ 125 mls/hr DAILY IV 04/02/24 10:00 04/12/24 13:39 125 MLS/HR Diagnostic Test (Pha) 1 strip Q6HR 04/02/24 06:00 04/12/24 11:56 1 STRIP Insulin Human Regular Q6HR SC 04/02/24 06:00 04/12/24 06:19 2 UNITS Dextrose 50 ml UD PRN IV 04/02/24 01:00 04/03/24 07:49 50 ML Enoxaparin Sodium 40 mg DAILY SC 04/02/24 10:00 04/12/24 11:56 40 MG Albuterol 2.5 mg Q4HR NEB 04/02/24 14:00 04/12/24 14:04 2.5 MG Ipratropium [place] 0.5 mg Q4HR NEB 04/02/24 14:00 04/12/24 14:04 0.5 MG Pantoprazole Sodium 40 mg DAILY IV 04/03/24 10:00 04/12/24 11:55 40 MG Enalaprilat 0.625 mg Q6HP PRN IV 04/02/24 16:00 04/08/24 21:29 0.625 MG Losartan Potassium 50 mg DAILY PO 04/04/24 10:00 04/12/24 13:39 50 MG Clonazepam 1 mg Q12HR PO 04/05/24 22:00 04/12/24 11:56 1 MG Trazodone HCl 100 mg HS PO 04/07/24 22:00 04/11/24 21:57 100 MG Lidocaine 1 patch DAILY@2200 TOP 04/07/24 22:00 04/11/24 21:57 1 PATCH Prednisone 20 mg BID PO 04/09/24 22:00 04/14/24 00:00 04/12/24 11:55 20 MG Amlodipine Besylate 10 mg DAILY PO 04/10/24 10:00 04/12/24 13:39 10 MG Cyclobenzaprine HCl 10 mg Q8HR PO 04/10/24 14:00 04/12/24 13:38 10 MG Acetaminophen 650 mg Q8HR PO 04/10/24 14:00 04/12/24 13:38 650 MG Enteral Nutritional Formula 240 ml BIDWM PO 04/10/24 18:00 04/12/24 11:20 240 ML Laboratory Results Laboratory Tests 04/09/24 05:10 Urinalysis Test 04/04/24 17:25 Urine Color Light-yellow (Yellow) Urine Clarity Clear (Clear) Urine pH 5.5 (5.0-9.0) Urine Specific [place] 1.015 (1.001-1.035) Urine Protein Negative (Negative) Urine Ketones Negative (Negative) Urine Blood 1+ /uL (Negative) H Urine Nitrite Negative (Negative) Urine Bilirubin Negative (Negative) Urine Urobilinogen Normal mg/dL (Negative) Urine Leukocyte Esterase Negative /uL (Negative) Urine RBC 11 /hpf (0 - 4) Urine WBC 5 /hpf (0 - 5) Urine Squamous Epithelial Cells Few /hpf (<5) Urine Bacteria None seen /hpf (None Seen) Urine Mucus Few (None Seen) Urine Glucose Normal mg/dL (Normal) Microbiology Microbiology Date/Time Source Procedure Growth Status 04/02/24 05:19 Nose MRSA Screen - Final Complete 04/02/24 01:18 Blood Blood Culture - Final NO GROWTH AFTER 5 DAYS OF INCUBATION. Complete 04/02/24 00:04 Sputum Gram Stain - Final Complete 04/02/24 00:04 Sputum Respiratory Culture - Final Complete Labs and/or images reviewed: Labs reviewed by me, Image(s) reviewed by me Assessment/Plan Assessment/Plan influenza illness copd exacerbation- better/on o2 at home htn stable dm stable dvt prophylaxis Plan discussed with: Patient, Other Date of Service: Apr 12, 2024 Billing Provider: LUCERO DUARTE MD Common Visit Codes: [id number] INP/OBS CARE(MOD) LUCERO DUARTE MD Apr 12, 2024 17:14
[2024-04-12] MEDS: HYDROcodone-ACET 7.5/325MG TAB PO PRN (17:47)
[2024-04-13] VITALS (14 sets, daily range): BP systolic 121–150; BP diastolic 50–78; PULSE 86–103; RESP 18–20; TEMP 97.9–98.3; O2SAT 97–100
[2024-04-13] MEDS: IPRATROPIUM BROM 0.5 MG/2.5ML INH SOL ONE (10:41)
[2024-04-13] MEDS: ALBUTEROL SULF 2.5 MG/0.5ML(0.5%) NEB SOLN ONE (10:42)
--- NOTE | 2024-04-13 12:33 | DVHDS2 ---
Discharge Summary Date of Admission Apr 02, 2024 at 00:56 Date of Discharge: Apr 13, 2024 Admitting Diagnosis shortness of breath/copd exacerbation with respiratory failure Wounds: nil Labs/Diagnostic Data: Laboratory Results Test 04/13/24 11:40 04/11/24 09:35 04/09/24 05:10 04/08/24 05:21 POC Glucose 156 mg/dl (70-106) Blood Gas Specimen Type Arterial Blood Gas Sample Site Right radial Blood Gas Patient Temperature 37.0 Arterial Blood Date Drawn [id number] Arterial Blood pH 7.439 (7.350-7.450) Arterial Blood Partial Pressure CO2 37.9 mmHg (32.0-45.0) Arterial Blood Partial Pressure O2 53.2 mmHg (83.0-108.0) Arterial Blood HCO3 25.1 mmol/L (21.0-28.0) Arterial Blood Oxygen Saturation 85.7 % (94.0-98.0) Arterial Blood Base Excess 1.1 mmol/L (-2.0-3.0) Arterial Blood Oxyhemoglobin 84.8 % (94.0-98.0) Arterial Blood Carboxyhemoglobin 0.8 % (0.5-1.5) Arterial Blood Methemoglobin 0.3 % (0.0-1.5) [place] Test Yes Blood Gas Total Hemoglobin 11.70 g/dL (12.0-16.0) Blood Gas Modality Room air FiO2 % 21.0 Blood Gas Critical Value Read Back Yes Blood Gas Notified [place] Blood Gas Notified Time [id number] Blood Gas Notified By Lands Resource Manager molly wright White Blood Count 11.1 10^3/uL (4.4-10.8) Red Blood Count 3.31 10^6/uL (4.0-5.20) Hemoglobin 9.4 g/dL (12.2-16.2) Hematocrit 29.8 % (36.0-46.0) Mean Corpuscular Volume 89.9 fL (80.0-100.0) Mean Corpuscular Hemoglobin 28.5 pg (28.0-32.0) Mean Corpuscular Hemoglobin Concent 31.6 g/dL (32.0-36.0) Red Cell Distribution Width 16.2 % (11.8-14.3) Platelet Count 175 10^3/uL (140-450) Mean Platelet Volume 10.5 fL (6.9-10.8) Neutrophils (%) (Auto) 57.7 % (37.0-80.0) Lymphocytes (%) (Auto) 28.6 % (10.0-50.0) Monocytes (%) (Auto) 11.9 % (0.0-12.0) Eosinophils (%) (Auto) 0.8 % (0.0-7.0) Basophils (%) (Auto) 1.0 % (0.0-2.0) Neutrophils # (Auto) 6.4 10 ^3/uL (1.6-8.6) Lymphocytes # (Auto) 3.2 10 ^3/uL (0.4-5.4) Monocytes # (Auto) 1.3 10 ^3/uL (0-1.3) Eosinophils # (Auto) 0.1 10 ^3/uL (0-0.8) Basophils # (Auto) 0.1 10 ^3/uL (0-0.2) Nucleated Red Blood Cells 0.0 % Sodium Level 144 mmol/L (136-145) Potassium Level 3.8 mmol/L (3.5-5.1) Chloride Level 108 mmol/L (98-107) Carbon Dioxide Level 31 mmol/L (20-31) Anion Gap 5 (5-15) Blood Urea Nitrogen 13 mg/dL (9-23) Creatinine 0.53 mg/dL (0.550-1.02) Glomerular Filtration Rate Calc 103 mL/min (>90) BUN/Creatinine Ratio 24.5 (10.0-20.0) Serum Glucose 74 mg/dL (74-106) Calcium Level 9.3 mg/dL (8.7-10.4) Magnesium Level 2.2 mg/dL (1.6-2.6) Test 04/07/24 08:44 04/07/24 04:49 04/06/24 07:12 04/05/24 05:15 Blood Gas Liter Flow 2.00 Phosphorus Level 3.4 mg/dL (2.4-5.1) Blood Gas Set Respiration Rate 18.0 Blood Gas Tidal Volume 450.0 Blood Gas PEEP or CPAP 5.0 Lactic Acid Level 1.4 mmol/L (0.4-2.0) Test 04/04/24 17:25 04/04/24 08:21 04/04/24 04:58 04/02/24 05:19 Urine Color Light-yellow (Yellow) Urine Clarity Clear (Clear) Urine pH 5.5 (5.0-9.0) Urine Specific [place] 1.015 (1.001-1.035) Urine Protein Negative (Negative) Urine Ketones Negative (Negative) Urine Blood 1+ /uL (Negative) Urine Nitrite Negative (Negative) Urine Bilirubin Negative (Negative) Urine Urobilinogen Normal mg/dL (Negative) Urine Leukocyte Esterase Negative /uL (Negative) Urine RBC 11 /hpf (0 - 4) Urine WBC 5 /hpf (0 - 5) Urine Squamous Epithelial Cells Few /hpf (<5) Urine Bacteria None seen /hpf (None Seen) Urine Mucus Few (None Seen) Urine Glucose Normal mg/dL (Normal) Urine Opiates Screen Neg (NEGATIVE) Urine Fentanyl Screen Pos (NEGATIVE) Urine Barbiturates Screen Neg (NEGATIVE) Urine Phencyclidine Screen Neg (NEGATIVE) Urine Amphetamines Screen Neg (NEGATIVE) Urine Benzodiazepines Screen Pos (NEGATIVE) Urine Cocaine Screen Pos (NEGATIVE) Urine Cannabinoids Screen Neg (NEGATIVE) Blood Gas Spontaneous Rate 18 Total Bilirubin 0.2 mg/dL (0.2-1.0) Aspartate Amino Transferase (AST) 11 U/L (13-40) Alanine Aminotransferase (ALT) < 9 U/L (7-40) Alkaline Phosphatase 61 U/L (46-116) Total Protein 5.1 g/dL (5.7-8.2) Albumin 3.2 g/dL (3.2-4.8) Influenza Type A Antigen Positive (Negative) Influenza Type B Antigen Positive (Negative) SARS-CoV-2 Antigen (Rapid) Negative (NEGATIVE) Test 04/02/24 01:18 04/01/24 22:48 04/01/24 20:28 04/01/24 20:23 D-Dimer, Quantitative 0.89 mg/L FEU (0.0-0.49) Troponin I High Sensitivity 5 ng/L (</=34) B-Type Natriuretic Peptide 133.62 pg/mL (0-100) Blood Gas Spontaneous Tidal Volume 524 Blood Gas EPAP 5 Blood Gas IPAP 12 Other Laboratory Tests 04/09/24 05:10 Brief Hx & Hospital Course: pt was admitted for respiratory failure triggered by influenza a and b /copd exacerbation due to above//was vent dependent from 04/04/24 --04/06/24. pt was extubated and stayed stable on 2l o2/pt was atable and dc home in stable condition/she has o2 at home she has finished her tamiflu rx for influenza copd exacerbation- has finished 10 days of antibiotics/wean and dc steroids her urine drug screen showed cocaine/ and she did admit to using some before admission to help her back pain( which was from influenza) states not addict/does not use drugs on daily basis and is not planning to use again/ Consults/Reason for consult pulmonary Operations or Procedures nil Condition at Discharge: Fair Final Diagnosis/Problems List acute respiratory failure- improved copd exacerbation improved influenza a influenza b hypwertension diabetes- steroid induced per pt and agree- but advised is diabetic and needs to watch her diet street drug abuse- no signs of with drawl and declines need for rehab-inpatient or op Discharge Disposition: Home Discharge Instruct/Medications Activity: No Restrictions, As Tolerated Follow Up/Referral: pcp - in 7-10 days Medications: losartan 50 mg once daily for bp trelegy as before albuterol nebulizer every 6 hrs for week then stop ipratropim nebulizer every 6 hrs for week then stop trazodone 100 mg once at bedtime metformin 500 mg once daily with biggest meal of the day for dm prednisone 20 mg- one daily for 3 days/haldf daily for 4 days then stop pantoprazole 40 mg once daily for week then use only if needed for herat burn/indigestion Discharge Statement: "Patient was advised to return to the ER or call 911 if any headaches, dizziness, shortness of breath, chest pain, abdominal pain, bleeding, fevers, or worsening of medical condition. Patient was counseled about treatment plan, medications, possible side effects, patientverbalized understanding. All questions were answered to the best of my ability. This discharge took greater then 30 minutes in planning, reviewing documentation, counseling the patient, and discussing with other team members." DME Statement: has o2 at home/portable and conservoir- public health social worker will double check before dc ASSESSMENT ASSESSMENT Assessment Date of Service: Apr 13, 2024 Billing Provider: LUCERO DUARTE MD Common Visit Codes: 69529-AZE/OBS DISCH DAY >30min LUCERO DUARTE MD Apr 13, 2024 12:33
[2024-04-13] MEDS ORDERED: PRED10TA PO ×3 (12:46→14:09)
[2024-04-13] MEDS ORDERED: ALBUTEROL SULF 2.5 MG/0.5ML(0.5%) NEB SOLN ONE (14:13)
[2024-04-13] MEDS ORDERED: IPRATROPIUM BROM 0.5 MG/2.5ML INH SOL ONE (14:14)
[2024-04-13] MEDS ORDERED: PANT40T PO (14:24)
--- NOTE | 2024-04-13 21:59 | DVHPN2 ---
Progress Note - Dictate Date Seen: Apr 13, 2024 Medical Necessity Reason Pt with a Central, PICC or Fol: Yes The following are medically ne: Phillips Catheter Reason for phillips catheter: Strict I&O Subjective Patient seen and examined at bedside. Remains on supplemental oxygen Overnight events reviewed. vital signs Vital Sign Date Time Temp Pulse Resp B/P (MAP) Pulse Ox O2 Delivery O2 Flow Rate FiO2 04/13/24 15:05 94 18 100 04/13/24 15:04 97.9 04/13/24 14:59 Nasal Cannula 2.0 04/13/24 14:59 28 04/13/24 13:00 133/78 (96) Total Intake and Output 04/12/24 04/12/24 04/13/24 15:00 23:00 07:00 Intake Total 50 ml 650 ml 600 ml Balance 50 ml 650 ml 600 ml objective Gen.: Patient lying in bed in no apparent distress. On supplemental oxygen. Head: Normocephalic, atraumatic. Eyes: EOMI/PERRLA. Ears: Normal hearing. Normal anatomy. Neck/trachea: Trachea midline, supple. Nose: Normal external anatomy. Mouth: Moist mucous membranes. Chest: Decreased air entry bilaterally. No wheezing or rhonchi. Cardiovascular: Positive S1, positive S2. Regular rate and rhythm. Abdomen: Positive bowel sounds in all 4 quadrants. Soft, non-tender, non- distended. : Deferred. Rectal: Deferred. Skin: Warm, dry. Intact. Extremities: 2+ radial pulses bilaterally. No lower extremity edema. Neuro: Awake, alert, oriented x3. No gross motor or sensory deficits. Cranial nerves II through XII intact. Gait not assessed. laboratory and microbiology Laboratory Tests 04/09/24 05:10 Test 04/09/24 05:10 Range/Units Serum Glucose 74 74-106 mg/dL Assessment/Plan Impression: Acute on chronic hypoxic respiratory failure 2/2 Asthma exacerbation Asthma exacerbation Nicotine dependence COPD DM type II Hypokalemia Lactic acidosis Influenza A and B positive Septic shock vs Distributive component. Atelectasis Events: Remains on supplemental oxygen On 1 LPM NC Continue to taper as tolerated Arrange for home O2. Continue antibiotics Continue bronchodilators Continue steroids- prednisone PO Incentive spirometry HOB elevation Aspiration precautions. Pain control Avoid oversedation Patient is stable for discharge from the pulmonary standpoint. Disposition per hospitalist. Labs and imaging reviewed. Rest of plan as noted below. Plan: s/p extubation on 04/06/24. Supplemental oxygen Titrate to keep O2 sats above 92%. Off sedation Off pressors, hemodynamically stable Tamiflu course for influenza - completed Continue antibiotics. Continue steroids Monitor renal function Monitor electrolytes. Supplement as necessary. Monitor ins and outs. GI prophylaxis. DVT prophylaxis. Prognosis: Poor given patient's multiple co-morbidities. Rest of plan per hospitalist and other consultants. Thank you Dr. Carroll Hobbs MD, for allowing me to participate in this patient's care. Further recommendations will depend on the patient's clinical course. Please do not hesitate to contact me if you have any questions or concerns. This medical document was created using an electronic medical record system with [employer] dictation system. Although these documentations are being carefully reviewed, there may still be some phonetic and typographical changes. The errors are purely typographical, due to imperfection on the software program, and do not reflect any compromise in the patient's medical care. Dietary Evaluation Review Comments: 1. Advance patient diet when medically feasible to CCHO 45g diet 2. Continue current plan of care. Expected Outcomes/Goals: 1. Patient to advance to PO diet. 2. Patient labs to improve 3. F/u in 2-3 days Plan discussed with: Patient, Other (NAJMA Steiner) SYLVIE RAMIREZ MD Apr 13, 2024 21:59
== END 2024-04-13 16:58 | disposition home or self-care (01) | DRG 870 ==
LOC: ER 19:57 → EDBD 19:57 → TELE 04-02 00:56 → ICU CENTRL 04-02 00:56 → TELE-EAST 04-07 15:36 → TELE-WESTW 04-12 11:11
PROVIDERS: ADMIT Nurse Practitioner; ATTEND Student in an Organized Health Care Education/Training Program
PROC: 5A09357 Assistance with Respiratory Ventilation, Less than 24 Consecutive Hours, Continuous Positive Airway Pressure (ICD-10-PCS; 2024-04-01)
PROC: 5A1955Z Respiratory Ventilation, Greater than 96 Consecutive Hours (ICD-10-PCS; principal; 2024-04-02)
PROC: 0BH17EZ Insertion of Endotracheal Airway into Trachea, Via Natural or Artificial Opening (ICD-10-PCS; 2024-04-02)
PROC: 02HV33Z Insertion of Infusion Device into Superior Vena Cava, Percutaneous Approach (ICD-10-PCS; 2024-04-02)
PROC: 05HA33Z Insertion of Infusion Device into Left Brachial Vein, Percutaneous Approach (ICD-10-PCS; 2024-04-07)
PROC: B54NZZA Ultrasonography of Left Upper Extremity Veins, Guidance (ICD-10-PCS; 2024-04-07)
DX: A41.9 Sepsis, unspecified organism (principal); J96.21 Acute and chronic respiratory failure with hypoxia; G93.41 Metabolic encephalopathy; J10.01 Influenza due to other identified influenza virus with the same other identified influenza virus pneumonia; R65.21 Severe sepsis with septic shock; J44.1 Chronic obstructive pulmonary disease with (acute) exacerbation; J45.901 Unspecified asthma with (acute) exacerbation; E87.20 Acidosis, unspecified; J44.0 Chronic obstructive pulmonary disease with (acute) lower respiratory infection; E87.4 Mixed disorder of acid-base balance; Z99.11 Dependence on respirator [ventilator] status; J10.1 Influenza due to other identified influenza virus with other respiratory manifestations; E11.9 Type 2 diabetes mellitus without complications; E78.5 Hyperlipidemia, unspecified; E87.6 Hypokalemia; T48.6X5A Adverse effect of antiasthmatics, initial encounter; I10 Essential (primary) hypertension; F41.9 Anxiety disorder, unspecified; I25.10 Atherosclerotic heart disease of native coronary artery without angina pectoris; T38.0X5A Adverse effect of glucocorticoids and synthetic analogues, initial encounter; Z90.710 Acquired absence of both cervix and uterus; Y92.89 Other specified places as the place of occurrence of the external cause
CPT/HCPCS: 36415; 36600; 71045; 80048; 80053; 80307; 81001; 82805; 82962; 83605; 83735; 83880; 84100; 84484; 85025; 85379; 87040; 87070; 87081; 87205; 87426; 87804; 93005; 94002; 94003; 94640; 94660; 97110; 97116; 97163; 97530; 99291; G0378; G9035; J1815; J1885; J2250; J2470; J2704; J3480; J7060

== ENCOUNTER 2024-12-06 12:54 | Inpatient (IN) | payer OTHER, MEDICAID ==
[~2024-12-06] VITALS: Ht 157.5 cm; Wt 46.2 kg
[2024-12-06] VITALS (20 sets, daily range): BP systolic 84–233; BP diastolic 49–113; PULSE 68–110; RESP 9–36; TEMP 97.3–98.4; O2SAT 97–100
[~2024-12-06 12:54] MED LIST changes: -CELE200C PO; -METH-1181 PO; +PANT40T PO; +PRED10TA PO
--- NOTE | 2024-12-06 13:00 | ED.PDOC ---
SOB-HPI HPI Comments This is a 64 year old female BIBA presenting to the ED with chief complaint of SOB. EMS reports that the patient has been experiencing SOB for some time now. EMS relays that the patient was started on CPAP on route to the ED along with a DuoNeb breathing treatment. 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 Family History Family History: Reviewed,noncontributory to illness Social History Smoker: Non-Smoker Alcohol: Denies ETOH Use Drugs: Denies Drug Use Lives In: Home Constitutional: denies: chills, diaphoresis, fatigue, fever, malaise, sweats, weakness, others EENTM: denies: blurred vision, double vision, ear bleeding, ear discharge, ear drainage, ear pain, ear ringing, eye pain, eye redness, hearing loss, mouth pain, mouth swelling, nasal discharge, nose bleeding, nose congestion, nose pain, photophobia, tearing, throat pain, throat swelling, voice changes, others Respiratory: reports: shortness of breath; denies: cough, hemoptysis, orthopnea, SOB at rest, SOB with excertion, stridor, wheezing, others Cardiovascular: denies: chest pain, dizzy spells, diaphoresis, Dyspnea on exertion, edema, irregular heart beat, left arm pain, lightheadedness, palpitations, PND, syncope, others Gastrointestinal: denies: abdomen distended, abdominal pain, blood streaked bowels, constipated, diarrhea, dysphagia, difficulty swallowing, hematemesis, melena, nausea, poor appetite, poor fluid intake, rectal bleeding, rectal pain, vomiting, others Genitourinary: denies: abnormal vagina bleeding, burning, dyspareunia, dysuria, flank pain, frequency, hematuria, incontinence, pain, , vagina discharge, urgency, others Neurological: denies: dizziness, fainting, headache, left sided numbness, left sided weakness, numbness, paresthesia, pre-existing deficit, right sided numbness, right sided weakness, seizure, speech problems, tingling, tremors, weakness, others Musculoskeletal: denies: back pain, gout, joint pain, joint swelling, muscle pain, muscle stiffness, neck pain, others Integumetry: denies: bruises, change in color, change in hair/nails, dryness, laceration, lesions, lumps, rash, wounds, others Allergic/Immunocompromised: denies: Difficulty Healing, Frequent Infections, Hives, Itching, others Hematologic/Lymphatic: denies: anemia, blood clots, easy bleeding, easy bruising, swollen glands, others Endocrine: denies: excessive hunger, excessive sweating, excessive thirst, excessive urination, flushing, intolerance to cold, intolerance to heat, unexplained weight gain, unexplained weight loss, others Psychiatric: denies: anxiety, bipolar disorder, depression, hopeless, panic disorder, schizophrenia, sleepless, suicidal, others All Other Systems: Reviewed and Negative Physical Exam General Appearance: No Apparent Distress, Normal HEENT: Normal ENT Inspection, Pharynx Normal, TMs Normal Neck: Full Range of Motion, Non-Tender, Normal, Normal Inspection Respiratory: Chest Non-Tender, Lungs Clear, No Accessory Muscle Use, Respiratory Distress, Other (Tachypnea) Cardiovascular: No Edema, No JVD, No Murmur, No Gallop, Normal Peripheral Pulses, Tachycardia Breast Exam: Deferred Gastrointestinal: No Organomegaly, Non Tender, No Pulsatile Mass, Normal Bowel Sounds, Soft Genitalia: Deferred Pelvic: Deferred Rectal: Deferred Extremities: No calf tenderness, Normal capillary refill, Normal inspection, Normal range of motion, Non-tender, No pedal edema Musculoskeletal : Apperance: Normal Neurologic: Alert, strategy specialist II-XII nml as Tested, No Motor Deficits, Normal Affect, Normal Mood, No Sensory Deficits Cerebellar Function: Normal Reflexes: Normal Skin: Dry, Normal Color, Warm Lymphatic: No Adenopathy Was a procedure done? 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 Physician Indication: Hypotension, CVP monitoring, Suspected infection Room prepared for procedure: Yes Dress Designer performed hand hygien: Yes Maximal sterile barrier precau: Mask/Eye shield, Sterile gown, Cap, Sterlie gloves, Large sterlie drape Skin Preparation: Chlorhexidine gluconate Skin preparation completely dr: Yes Insertion site: Right (Subclavian) Central line catheter type: Xcd-[id number] dialysis Number of lumens: 3 Central line exchanged over a: Yes Antiseptic ointment applied to: Yes Post Assessment: Chest X-Ray, Proper placement Informed consent obtained: Yes Risks/benefits/alt described: Yes Intubation Indication: Respiratory Insufficiency, Airway Protection Prep: Preoxygenation Pretreated with: Sedation Medicated with: Succinylcholine Intubation Approach: Orotracheal Intubation size: cm (8) Informed consent obtained: Yes Risks/benefits/alt described: Yes Differential Dx Differential Diagnosis: Asthma, CHF, COPD, Pneumonia, Pulmonary Embolism, Res piratory Distress X-Ray, Labs, Meds, VS Vital Signs Date Time Temp Pulse Resp B/P (MAP) Pulse Ox O2 Delivery O2 Flow Rate FiO2 12/06/24 14:50 143/74 12/06/24 14:50 143/74 12/06/24 14:45 91 22 143/74 (97) 100 12/06/24 14:30 96 13 71/43 (52) 100 12/06/24 14:20 71/43 12/06/24 14:15 97 15 71/43 (52) 98 12/06/24 14:10 71/43 12/06/24 14:00 192/68 12/06/24 14:00 192/68 12/06/24 14:00 97.7 85 15 192/68 (109) 100 97.7 12/06/24 13:54 97.6 101 16 233/113 100 60 97.6 12/06/24 13:50 66/37 12/06/24 13:50 66/37 12/06/24 13:49 97.6 115 30 140/111 96 97.6 12/06/24 13:45 97.7 99 16 128/67 (87) 100 97.7 12/06/24 13:45 128/67 12/06/24 13:42 101 16 233/113 (153) 100 60 12/06/24 13:16 109 12/06/24 13:04 110 36 97 Bi-Pap+ 35 35 12/06/24 13:04 97.7 110 36 177/86 116 97 97.7 Lab Test 12/06/24 14:38 12/06/24 13:15 Range/Units White Blood Count Pending Red Blood Count Pending Hemoglobin Pending Hematocrit Pending Mean Corpuscular Volume Pending Mean Corpuscular Hemoglobin Pending Mean Corpuscular Hemoglobin Concent Pending Red Cell Distribution Width Pending Platelet Count Pending Mean Platelet Volume Pending Neutrophils (%) (Auto) Pending Lymphocytes (%) (Auto) Pending Monocytes (%) (Auto) Pending Basophils (%) (Auto) Pending Neutrophils # (Auto) Pending Lymphocytes # (Auto) Pending Monocytes # (Auto) Pending D-Dimer, Quantitative Pending Sodium Level Pending Potassium Level Pending Chloride Level Pending Carbon Dioxide Level Pending Anion Gap Pending Blood Urea Nitrogen Pending Creatinine Pending Glomerular Filtration Rate Calc Pending BUN/Creatinine Ratio Pending Serum Glucose Pending Calcium Level Pending Magnesium Level Pending Total Bilirubin Pending Aspartate Amino Transferase (AST) Pending Alanine Aminotransferase (ALT) Pending Alkaline Phosphatase Pending Troponin I High Sensitivity Pending B-Type Natriuretic Peptide Pending Total Protein Pending Albumin Pending Urine Color Light-yellow Yellow Urine Clarity Clear Clear Urine pH 6.5 5.0-9.0 Urine Specific [place] 1.011 1.001-1.035 Urine Protein Negative Negative Urine Ketones Negative Negative Urine Blood Negative Negative /uL Urine Nitrite Negative Negative Urine Bilirubin Negative Negative Urine Urobilinogen Normal Negative mg/dL Urine Leukocyte Esterase Negative Negative /uL Urine RBC 1 0 - 4 /hpf Urine Microscopic WBC < 1 0-5 /HPF Urine Squamous Epithelial Cells Few <5 /hpf Urine Bacteria None seen None Seen /hpf Urine Glucose Normal Normal mg/dL Current Medications Medications (Trade) Dose Ordered Sig/Aida Route Start Time Stop Time Status Last Admin Etomidate 20 mg ONCE ONCE IV 12/06/24 13:30 12/06/24 13:32 DC 12/06/24 13:05 Succinylcholine Chloride (Quelicin) 100 mg ONCE ONCE IV 12/06/24 13:30 12/06/24 13:32 DC 12/06/24 13:05 Methylprednisolone Sodium Succinate (Solu Medrol) 125 mg ONCE ONCE IV 12/06/24 13:45 12/06/24 13:46 DC 12/06/24 13:10 Magnesium Sulfate/ Dextrose 100 ml @ 100 mls/hr ONCE ONCE IV 12/06/24 13:45 12/06/24 14:44 DC 12/06/24 13:15 Propofol 100 ml @ 1.497 mls/ hr Q24H IV 12/06/24 13:45 12/06/24 13:45 Norepinephrine Bitartrate 250 ml @ 3.75 mls/hr Q24H IV 12/06/24 13:45 12/06/24 13:50 Midazolam HCl 50 ml @ 1 mls/hr Q24H IV 12/06/24 13:49 12/06/24 14:00 X-Ray, Labs, Meds, VS Comment This 64-year-old female presents secondary to respiratory distress. The patient is on home oxygen. However, while maximum assist she had home, the patient can to have an oxygen saturation in the 80s. At presentation, the patient was tachypneic, tachycardic using accessory muscles and could be breathing despite b eing on a BiPAP. Decision made to emergently intubate the patient. Intubation was successful. The patient was then provided with a central line secondary to requiring access for the patient in the difficulty getting IVs. Patient was then admitted to the ICU for further workup and management. Time of 1ST Reevaluation: 13:57 Reevaluation 1ST: Unchanged Patient Education/Counseling: Diagnosis, Treatment Family Education/Counseling: No Family Present SEPSIS Sepsis Screen Physician Orders Complete Blood Count (12/06/24 13:13) Comprehensive Metabolic Panel (12/06/24 13:13) D-Dimer (12/06/24 13:13) B-Type Natriuretic Peptide (12/06/24 13:13) Chest Xray 1 View (12/06/24 13:13) Magnesium (12/06/24 13:13) Troponin-I Hs (12/06/24 13:13) Troponin-I Hs (12/06/24 14:13) Troponin-I Hs (12/06/24 16:13) Electrocardigram (12/06/24 13:22) Propofol (Diprivan) (12/06/24 13:45) Rass Sedation Scale Q1HR (12/06/24 13:35) Norepinephrine 8 Mg/250ml Kit (Levophed) (12/06/24 13:45) Midazolam Drip 50 Mg/50ml (Versed Drip 5 (12/06/24 13:49) Rass Sedation Scale Q1HR (12/06/24 13:48) Respiratory Culture W/ Gs (12/06/24 13:51) Abg W/ Co-Ox (12/06/24 14:30) Ventilator Orders (12/06/24 13:51) Chest Xray 1 View (12/06/24 14:48) Communication Order (12/06/24 14:50) Vital Signs Date Time Temp Pulse Resp B/P (MAP) Pulse Ox O2 Delivery O2 Flow Rate FiO2 12/06/24 14:50 143/74 12/06/24 14:50 143/74 12/06/24 14:45 91 22 143/74 (97) 100 12/06/24 14:30 96 13 71/43 (52) 100 12/06/24 14:20 71/43 12/06/24 14:15 97 15 71/43 (52) 98 12/06/24 14:10 71/43 12/06/24 14:00 192/68 12/06/24 14:00 192/68 12/06/24 14:00 97.7 85 15 192/68 (109) 100 97.7 12/06/24 13:54 97.6 101 16 233/113 100 60 97.6 12/06/24 13:50 66/37 12/06/24 13:50 66/37 12/06/24 13:49 97.6 115 30 140/111 96 97.6 12/06/24 13:45 97.7 99 16 128/67 (87) 100 97.7 12/06/24 13:45 128/67 12/06/24 13:42 101 16 233/113 (153) 100 60 12/06/24 13:16 109 12/06/24 13:04 110 36 97 Bi-Pap+ 35 35 12/06/24 13:04 97.7 110 36 177/86 (116) 97 97.7 Laboratory Tests Test 12/06/24 14:38 White Blood Count Pending Medications Medications Dose Ordered Sig/Aida Route Start Time Stop Time Status Last Admin Dose Admin Etomidate 20 mg ONCE ONCE IV 12/06/24 13:30 12/06/24 13:32 DC 12/06/24 13:05 Magnesium Sulfate/ Dextrose 100 ml @ 100 mls/hr ONCE ONCE IV 12/06/24 13:45 12/06/24 14:44 DC 12/06/24 13:15 Methylprednisolone Sodium Succinate 125 mg ONCE ONCE IV 12/06/24 13:45 12/06/24 13:46 DC 12/06/24 13:10 Midazolam HCl 50 ml @ 1 mls/hr Q24H IV 12/06/24 13:49 12/06/24 14:00 Norepinephrine Bitartrate 250 ml @ 3.75 mls/hr Q24H IV 12/06/24 13:45 12/06/24 13:50 Propofol 100 ml @ 1.497 mls/ hr Q24H IV 12/06/24 13:45 12/06/24 13:45 Succinylcholine Chloride 100 mg ONCE ONCE IV 12/06/24 13:30 12/06/24 13:32 DC 12/06/24 13:05 Departure 1 Departure Time of Disposition: 15:04 Impression: Primary Impression: Respiratory distress Additional Impressions: Respiratory failure Hypoxia Dyspnea Disposition: ADMITTED INPATIENT Condition: Critical Critical Care Note Critical Care Time?: Yes (45 min-critical care time only) Critical care comment: Total critical care time: Approximately 47 minutes Due to a high probability of clinically significant, life threatening deterioration, the patient required my highest level of preparedness to intervene emergently and I personally spent this critical care time directly and personally managing the patient. This critical care time included obtaining a history; examining the patient; pulse oximetry; ordering and review of studies; arranging urgent treatment with development of a management plan; evaluation of patient's response to treatment; frequent reassessment; and, discussions with other providers. This critical care time was performed to assess and manage the high probability of imminent, life-threatening deterioration that could result in multi-organ failure. It was exclusive of separately billable procedures and treating other patients and teaching time. Please see MDM section and the rest of the note for further information on patient assessment and treatment. Stability Stability form required: No Heart Score Heart Score: Heart Score Response (Comments) Value History N/A 0 EKG N/A 0 Age N/A 0 Risk Factors N/A 0 Troponin N/A 0 Total 0 I personally scribed for S[facility]ETA OWENS [email or web address] on 12/06/24 at 13:00. Electronically submitted by Richie Jane ([email or web address]). I personally scribed for [facility] OWENS [facility] on 12/06/24 at 13:11. Electronically submitted by Richie Jane ([email or web address]). I personally scribed for SANGEETA OWENS MD ([email or web address]) on 12/06/24 at 13:15. Electronically submitted by Richie Jane ([email or web address]). SANGEETA OWENS MD Dec 06, 2024 13:00
[2024-12-06] MEDS: methylPREDNISolone SOD SUCC 125 MG/2 ML VL ONE (13:03)
[2024-12-06] MEDS: ETOMIDATE (2MG/ML) 20ML VIAL IV ONE ×3 (13:04→13:33)
[2024-12-06] MEDS: SUCCINYLCHOLINE CHLORIDE 20 MG/ML 10ML VIAL IV ONE ×2 (13:05→13:33)
[2024-12-06] MEDS: methylPREDNISolone SOD SUCC 125 MG/2 ML VL IV ONE (13:10)
[2024-12-06] MEDS: MAGNESIUM SULFATE 1GM/100ML 100 ML IV ONE (13:15)
[2024-12-06] MEDS: PROPOFOL 100 ML IV ONE (13:21)
[2024-12-06] MEDS: PROPOFOL 100 ML IV SCH (13:45)
[2024-12-06 13:49] LABS: Urine Protein, UAD Negative (Negative)
[2024-12-06] MEDS: NOREPINEPHRINE 8 MG/250ML KIT 250 ML IV SCH (13:50)
[2024-12-06] MEDS: MIDAZOLAM DRIP 50 mg/50mL 50 ML IV SCH (14:00)
[2024-12-06] MEDS: NOREPINEPHRINE 8 MG/250ML KIT 250 ML IV ONE (14:13)
[2024-12-06] MEDS: MIDAZOLAM DRIP 50 mg/50mL 50 ML IV ONE (14:13)
--- NOTE | 2024-12-06 14:32 | DVH ---
CHEST RADIOGRAPH Indication: sob Technique: Single frontal view of the chest was obtained COMPARISON: None FINDINGS: Lines and Tubes: Endotracheal tube and enteric catheter in satisfactory position Lungs: Congestion Pleura: No effusion. No pneumothorax. Cardiomediastinal contours: Unremarkable Bones: Unremarkable IMPRESSION: Lines and tubes in satisfactory position. Mild congestion
[2024-12-06 15:15] LABS: Alanine Aminotransferase 12 U/L (7-40); Albumin 4.8 g/dL (3.2-4.8); Alkaline Phosphatase 82 U/L (46-116); Anion Gap 8 (5-15); BUN/Creatinine Ratio 13.9 (10.0-20.0); Bilirubin, Total 0.7 mg/dL (0.2-1.0); Blood Urea Nitrogen 11 mg/dL (9-23); Calcium 9.8 mg/dL (8.7-10.4); Carbon Dioxide 28 mmol/L (20-31); Chloride 105 mmol/L (98-107); Magnesium 2.5 mg/dL (1.6-2.6); Potassium 4.7 mmol/L (3.5-5.1); Sodium 141 mmol/L (136-145); Total Protein 7.1 g/dL (5.7-8.2)
[2024-12-06 15:18] LABS: Glucose 152 mg/dL (74-106)
[2024-12-06 15:20] LABS: Hematocrit 41.5 % (36.0-46.0); Hemoglobin 13.2 g/dL (12.2-16.2); Mean Corpuscular Hemoglobin 29.6 pg (28.0-32.0); Mean Corpuscular Volume 93.3 fL (80.0-100.0); Nucleated Red Blood Cells % 0.0 %
--- NOTE | 2024-12-06 15:32 | DVH ---
CHEST RADIOGRAPH Indication: S/P CENTRAL LINE PLACEMENT Technique: Single frontal view of the chest was obtained COMPARISON: XY CHEST XRAY 1 VIEW on DOS: 12/06/24 FINDINGS: Lines and Tubes: Endotracheal tube, enteric catheter and right central venous catheter in satisfactor y position. Lungs: Congestion Pleura: No effusion. No pneumothorax. Cardiomediastinal contours: Unremarkable Bones: Unremarkable IMPRESSION: Right central venous catheter in satisfactory position.
[2024-12-06 16:19] LABS: Base Excess -1.9 mmol/L (-2.0-3.0)
[2024-12-06 16:22] LABS: Base Excess 0.3 mmol/L (-2.0-3.0)
--- NOTE | 2024-12-06 16:41 | DVHHP2 ---
Admitting Diagnosis: SOB History of Present Illness This is a 64 year old female LAWA presenting to the ED with chief complaint of SOB. EMS reports that the patient has been experiencing SOB for some time now. EMS relays that the patient was started on CPAP on route to the ED along with a DuoNeb breathing treatment. PAST MEDICAL HISTORY: COPD Surgical History: Denies all surgeries [employer] History: Denies all [employer] Hx Family History Family History: Reviewed,noncontributory to illness Social History Smoker: Non-Smoker Alcohol: Denies ETOH Use Drugs: Denies Drug Use Lives In: Home Allergies: Coded Allergies: Amitriptyline (Verified Allergy, Unknown, 08/22/22) Fluoxetine (Verified Allergy, Unknown, 11/06/17) Gabapentin (Verified Allergy, Unknown, 11/06/17) NSAIDs (Verified Allergy, Unknown, 11/06/17) Home Meds Active Scripts Pantoprazole Sodium Sesquihydr (Pantoprazole Sodium) 40 Mg Tab, 40 MG PO DAILY for 30 Days, #30 TAB Prov:LUCERO DUARTE MD 04/13/24 Prednisone (Prednisone) 10 Mg Tab, 20 MG PO as directed PRN, #5 MG Prov:LUCERO DUARTE MD 04/13/24 Prednisone (Prednisone) 10 Mg Tab, 20 MG PO half daily for 4 Days, #2 MG Prov:LUCERO DUARTE MD 04/13/24 Prednisone (Prednisone) 10 Mg Tab, 20 MG PO DAILY for 3 Days, MG Prov:LUCERO DUARTE MD 04/13/24 Metformin Hydrochloride (Metformin Hcl) 500 Mg Tab, 1 TAB PO BID, #60 TAB 3 Refills Prov:PAULA OCHOA MD 04/15/23 Reported Medications Simvastatin (Simvastatin) 40 Mg Tab, 1 TAB PO DAILY for 90 Days, #90 03/04/24 Losartan Potassium (Losartan Potassium) 50 Mg Tab, 1 TAB PO DAILY for 90 Days, #90 03/04/24 Bsupnbshjeg-Lswrnigeamjg-Mqnqd (Trelegy Ellipta 100-62.5-25 Mcg/INH) 1 Aer Aer, 1 PUFF IN DAILY for 30 Days, #60 03/04/24 Albuterol Sulfate (Albuterol Sulfate Hfa) 108 Mcg/Act Aer, 1 PUFF IN Q4-6HR PRN for WHEEZING for 33 Days, #18 03/04/24 Trazodone Hcl (Trazodone Hcl) 100 Mg Tab, 1 TAB PO HS PRN for FOR INSOMNIA for 30 Days, #30 03/04/24 Cholecalciferol (VITAMIN D3) 2,000 Unit Tab, 1 TAB PO DAILY for 30 Days, #30 03/04/24 Current Medications Current Medications Medications (Trade) Dose Ordered Sig/Aida Route PRN Reason Start Time Stop Time Status Last Admin Propofol 100 ml @ 1.497 mls/ hr Q24H IV 12/06/24 13:45 12/06/24 15:50 Norepinephrine Bitartrate 250 ml @ 3.75 mls/hr Q24H IV 12/06/24 13:45 12/06/24 13:50 Midazolam HCl 50 ml @ 1 mls/hr Q24H IV 12/06/24 13:49 12/06/24 15:50 Fentanyl Citrate 250 ml @ 2.5 mls/hr Q24H IV 12/06/24 17:45 Vancomycin HCl 0 ml @ 0 mls/hr UD IV 12/06/24 18:00 UNV Piperacillin Sod/ Tazobactam Sod 100 ml @ 25 mls/hr Q8H IV 12/06/24 18:00 UNV Docusate Sodium (Colace Capsule) 100 mg BIDPRN PRN PO FOR CONSTIPATION 12/06/24 18:00 UNV Acetaminophen (Tylenol Tablet) 650 mg Q6HP PRN PO PAIN SCALE 1-3 OR TEMP>100.4 12/06/24 18:00 UNV Acetaminophen/ Hydrocodone Bitart (Arco 5/325MG Tab) 1 tab Q4HP PRN PO MODERATE PAIN (4-6 PAIN SCALE) 12/06/24 18:00 UNV Hydromorphone HCl (Dilaudid Injection) 0.5 mg Q4HP PRN IV SEVERE PAIN (7-10 PAIN SCALE) 12/06/24 18:00 UNV Ondansetron HCl (Zofran) 4 mg Q4HP PRN IV NAUSEA / VOMITING 12/06/24 18:00 UNV Enoxaparin Sodium (Lovenox) 40 mg DAILY SC 12/07/24 10:00 UNV Vital Signs Vital Signs Date Time Temp Pulse Resp B/P (MAP) Pulse Ox O2 Delivery O2 Flow Rate FiO2 12/06/24 17:30 98.4 89 20 152/71 (98) 100 98.4 12/06/24 15:57 60 12/06/24 13:04 Bi-Pap+ Physical Exam 64 years old woman, intubated sedated resting in bed. No apparent distress HEENT-atraumatic normocephalic Heart-regular rate and rhythm Lungs clear to auscultate bilaterally. No wheezing or rales or rhonchi Abdomen soft nontender nondistended Musculoskeletal-no edema cyanosis Neuro-intubated and sedated SEPSIS Sepsis Screen Date sepsis recognized/suspect: Dec 06, 2024 Time Sepsis recognized/suspect: 1250 Recent Procedure: No On Antibiotic Therapy: No Respiratory Rate >20: Yes Heart Rate >90: Yes Temp<36 C (96.8 F) or >38.3 C: No SBP <90 or MAP <65 mmHG: No New Acute Mental Status Change: No Is the patient on CPAP, BIPAP,: Yes Physician Orders Chest Xray 1 View (12/06/24 13:13) Troponin-I Hs (12/06/24 16:13) Electrocardigram (12/06/24 13:22) Propofol (Diprivan) (12/06/24 13:45) Rass Sedation Scale Q1HR (12/06/24 13:35) Norepinephrine 8 Mg/250ml Kit (Levophed) (12/06/24 13:45) Midazolam Drip 50 Mg/50ml (Versed Drip 5 (12/06/24 13:49) Rass Sedation Scale Q1HR (12/06/24 13:48) Respiratory Culture W/ Gs (12/06/24 13:51) Abg W/ Co-Ox (12/06/24 14:30) Ventilator Orders (12/06/24 13:51) Chest Xray 1 View (12/06/24 14:48) Communication Order (12/06/24 14:50) Ventilator Orders (12/06/24 15:16) Abg W/ Co-Ox (12/06/24 16:30) Ventilator Orders (12/06/24 16:21) Abg W/ Co-Ox (12/06/24 18:00) Ct Angio Chest Contrast (12/06/24 16:40) Fentanyl Drip 2500mcg/250mlns (12/06/24 17:45) Vancomycin Per Pharmacy (12/06/24 18:00) Piperacillin-Tazob 3.375gm (Zosyn 3.375g (12/06/24 18:00) Admit (12/06/24 17:47) Code Status (12/06/24 17:47) Vital Signs .PER UNIT PROTOCOL (12/06/24 17:47) Review Orders With Adm.Md (12/06/24 17:47) Encourage Activity As Tolerate (12/06/24 17:47) Docusate Sodium Capsule (Colace Capsule) (12/06/24 18:00) Acetaminophen Tablet (Tylenol Tablet) (12/06/24 18:00) Notify Md Of Changes From Base (12/06/24 17:47) Advance Directive (12/06/24 17:47) Patient Condition (12/06/24 17:47) Allergies (12/06/24 17:47) Hydrocodone-Acet 5/325mg Tab (Arco 5/32 (12/06/24 18:00) Hydromorphone Injection (Dilaudid Inject (12/06/24 18:00) Ondansetron Hcl (Zofran) (12/06/24 18:00) Enoxaparin Sodium (Lovenox) (12/07/24 10:00) Vital Signs Date Time Temp Pulse Resp B/P (MAP) Pulse Ox O2 Delivery O2 Flow Rate FiO2 12/06/24 17:30 98.4 89 20 152/71 (98) 100 98.4 12/06/24 17:30 152/71 12/06/24 17:15 98.4 85 20 139/70 (93) 100 98.4 12/06/24 17:00 98.4 85 20 139/70 (93) 100 98.4 12/06/24 16:50 122/69 12/06/24 16:50 122/69 12/06/24 16:50 122/69 12/06/24 16:45 98.6 82 20 95/57 (70) 96 98.6 12/06/24 16:35 80/46 12/06/24 16:30 98.6 81 20 80/46 (57) 100 98.6 12/06/24 16:15 98.4 82 20 93/54 (67) 100 98.4 12/06/24 16:00 98.4 81 20 125/69 (87) 100 98.4 12/06/24 15:57 80 20 86/45 (59) 100 60 12/06/24 15:50 86/45 12/06/24 15:50 86/45 12/06/24 15:50 86/45 12/06/24 15:45 82 20 86/45 (59) 100 12/06/24 15:30 82 20 122/68 (86) 100 12/06/24 15:15 97.0 88 18 77/53 (61) 100 97.0 12/06/24 15:00 68/46 12/06/24 15:00 95 18 68/46 (53) 99 12/06/24 14:50 68/46 12/06/24 14:50 68/46 12/06/24 14:50 68/46 12/06/24 14:45 91 22 143/74 (97) 100 12/06/24 14:45 143/74 12/06/24 14:30 96 13 71/43 (52) 100 12/06/24 14:20 71/43 12/06/24 14:15 97 15 71/43 (52) 98 12/06/24 14:10 71/43 12/06/24 14:00 192/68 12/06/24 14:00 192/68 12/06/24 14:00 97.7 85 15 192/68 (109) 100 97.7 12/06/24 13:54 97.6 101 16 233/113 100 60 97.6 12/06/24 13:50 66/37 12/06/24 13:50 66/37 12/06/24 13:49 97.6 115 30 140/111 96 97.6 12/06/24 13:45 97.7 99 16 128/67 (87) 100 97.7 12/06/24 13:45 128/67 12/06/24 13:42 101 16 233/113 (153) 100 60 12/06/24 13:16 109 12/06/24 13:04 110 36 97 Bi-Pap+ 35 35 12/06/24 13:04 97.7 110 36 177/86 (116) 97 97.7 Laboratory Tests Test 12/06/24 14:38 White Blood Count 12.8 10^3/uL (4.4-10.8) H Medications Medications Dose Ordered Sig/Aida Route Start Time Stop Time Status Last Admin Dose Admin Etomidate 20 mg ONCE ONCE IV 12/06/24 13:30 12/06/24 13:32 DC 12/06/24 13:05 Magnesium Sulfate/ Dextrose 100 ml @ 100 mls/hr ONCE ONCE IV 12/06/24 13:45 12/06/24 14:44 DC 12/06/24 13:15 Methylprednisolone Sodium Succinate 125 mg ONCE ONCE IV 12/06/24 13:45 12/06/24 13:46 DC 12/06/24 13:10 Midazolam HCl 50 ml @ 1 mls/hr Q24H IV 12/06/24 13:49 12/06/24 15:50 Norepinephrine Bitartrate 250 ml @ 3.75 mls/hr Q24H IV 12/06/24 13:45 12/06/24 13:50 Propofol 100 ml @ 1.497 mls/ hr Q24H IV 12/06/24 13:45 12/06/24 15:50 Succinylcholine Chloride 100 mg ONCE ONCE IV 12/06/24 13:30 12/06/24 13:32 DC 12/06/24 13:05 Results Labs Test 12/06/24 16:12 12/06/24 15:39 12/06/24 14:38 12/06/24 13:15 Range/Units Blood Gas Specimen Type Arterial Blood Gas Sample Site Right radial Blood Gas Patient Temperature 37.0 Arterial Blood Date Drawn [id number] Arterial Blood pH 7.505 H 7.350-7.450 Arterial Blood Partial Pressure CO2 29.3 L 32.0-45.0 mmHg Arterial Blood Partial Pressure O2 186.4 H 83.0-108.0 mmHg Arterial Blood HCO3 22.6 21.0-28.0 mmol/L Arterial Blood Oxygen Saturation 99.3 H 94.0-98.0 % Arterial Blood Base Excess 0.3 -2.0-3.0 mmol/L Arterial Blood Oxyhemoglobin 98.0 94.0-98.0 % Arterial Blood Carboxyhemoglobin 1.1 0.5-1.5 % Arterial Blood Methemoglobin 0.2 0.0-1.5 % [place] Test Modified Blood Gas Total Hemoglobin 11.90 L 12.0-16.0 g/dL Blood Gas Set Respiration Rate 20.0 Blood Gas Modality Vent - ac FiO2 % 60.0 Blood Gas Tidal Volume 400.0 Blood Gas PEEP or CPAP 5.0 Troponin I High Sensitivity 21 </=34 ng/L White Blood Count 12.8 H 4.4-10.8 10^3/uL Red Blood Count 4.45 4.0-5.20 10^6/uL Hemoglobin 13.2 12.2-16.2 g/dL Hematocrit 41.5 36.0-46.0 % Mean Corpuscular Volume 93.3 80.0-100.0 fL Mean Corpuscular Hemoglobin 29.6 28.0-32.0 pg Mean Corpuscular Hemoglobin Concent 31.7 L 32.0-36.0 g/dL Red Cell Distribution Width 15.3 H 11.8-14.3 % Platelet Count 256 140-450 10^3/uL Mean Platelet Volume 10.2 6.9-10.8 fL Neutrophils (%) (Auto) 87.0 H 37.0-80.0 % Lymphocytes (%) (Auto) 7.7 L 10.0-50.0 % Monocytes (%) (Auto) 2.1 0.0-12.0 % Eosinophils (%) (Auto) 2.8 0.0-7.0 % Basophils (%) (Auto) 0.4 0.0-2.0 % Neutrophils # (Auto) 11.2 H 1.6-8.6 10 ^3/uL Lymphocytes # (Auto) 1.0 0.4-5.4 10 ^3/uL Monocytes # (Auto) 0.3 0-1.3 10 ^3/uL Eosinophils # (Auto) 0.4 0-0.8 10 ^3/uL Basophils # (Auto) 0 0-0.2 10 ^3/uL Nucleated Red Blood Cells 0.0 % D-Dimer, Quantitative 0.53 H 0.0-0.49 mg/L FEU Sodium Level 141 136-145 mmol/L Potassium Level 4.7 3.5-5.1 mmol/L Chloride Level 105 98-107 mmol/L Carbon Dioxide Level 28 20-31 mmol/L Anion Gap 8 5-15 Blood Urea Nitrogen 11 9-23 mg/dL Creatinine 0.79 0.550-1.02 mg/dL Glomerular Filtration Rate Calc 83 >90 mL/min BUN/Creatinine Ratio 13.9 10.0-20.0 Serum Glucose 152 H 74-106 mg/dL Calcium Level 9.8 8.7-10.4 mg/dL Magnesium Level 2.5 1.6-2.6 mg/dL Total Bilirubin 0.7 0.2-1.0 mg/dL Aspartate Amino Transferase (AST) 26 13-40 U/L Alanine Aminotransferase (ALT) 12 7-40 U/L Alkaline Phosphatase 82 46-116 U/L B-Type Natriuretic Peptide 22.55 0-100 pg/mL Total Protein 7.1 5.7-8.2 g/dL Albumin 4.8 3.2-4.8 g/dL Urine Color Light-yellow Yellow Urine Clarity Clear Clear Urine pH 6.5 5.0-9.0 Urine Specific [place] 1.011 1.001-1.035 Urine Protein Negative Negative Urine Ketones Negative Negative Urine Blood Negative Negative /uL Urine Nitrite Negative Negative Urine Bilirubin Negative Negative Urine Urobilinogen Normal Negative mg/dL Urine Leukocyte Esterase Negative Negative /uL Urine RBC 1 0 - 4 /hpf Urine Microscopic WBC < 1 0-5 /HPF Urine Squamous Epithelial Cells Few <5 /hpf Urine Bacteria None seen None Seen /hpf Urine Glucose Normal Normal mg/dL Microbiology Date/Time Source Procedure Growth Status 12/06/24 14:22 Sputum Expectorated Sputum Gram Stain - Preliminary Resulted 12/06/24 14:22 Sputum Expectorated Sputum Respiratory Culture Pending Resulted Primary Diagnosis Acute hypoxic respiratory failure requiring intubation Hypotension likely due to sepsis Plan Hypotension on admission with a hypoxic Start CTA to rule out PE due to elevated D-dimer On pressors and sedation Vanc and Zosyn for broad-spectrum antibiotics Check sputum culture, blood culture. UA is negative Lungs clear to auscultate. Hold off steroids Daily spontaneous breathing, spontaneous breathing trial Check echo of the heart Full code Lovenox for DVT prophylaxis PPI for GI prophylaxis Plan discussed with: Patient Date of Service: Dec 06, 2024 Billing Provider: SEBAS BILL MD Common Visit Codes: [id number] CARE 30-74 MIN SEBAS BILL MD Dec 06, 2024 16:41
[2024-12-06] MEDS: fentaNYL Drip 2500mCg/250mlNS 250 ML IV SCH (17:50)
[2024-12-06] MEDS: fentaNYL Drip 2500mCg/250mlNS 250 ML IV ONE (17:56)
[2024-12-06] MEDS ORDERED: ACETAMINOPHEN 325 MG TAB PO PRN (18:00)
[2024-12-06] MEDS ORDERED: VANCOMYCIN PER PHARMACY 0 MG IV SCH (18:00)
[2024-12-06] MEDS ORDERED: HYDROcodone-ACET 5/325MG TAB PO PRN (18:00)
[2024-12-06] MEDS ORDERED: HYDROmorphone HCL 2 MG/ML VL/or syr IV PRN (18:00)
[2024-12-06] MEDS ORDERED: DOCUSATE SOD 100 MG CAP PO PRN (18:00)
[2024-12-06] MEDS ORDERED: ONDANSETRON HCL 4 MG/2 ML VIAL IV PRN (18:00)
[2024-12-06] MEDS: IOHEXOL 350 MG/ML 100ML IJ ONE (18:15)
--- NOTE | 2024-12-06 18:44 | DVH ---
CTA Chest with intravenous contrast INDICATION: acute hypoxia elevated d-dimer r/o PE COMPARISON: CT CHEST WITHOUT CONTRAST on DOS: 03/04/24, CT CT ANGIO CHEST CONTRAST on DOS: 08/22/22 TECHNIQUE: Multidetector spiral CTA of the chest was performed of the chest with intravenous contrast . PULMONARY ANGIOGRAPHY PROTOCOL was utilized using a bolus-tracking technique centered on the main p ulmonary artery. Axial, coronal and sagittal multiplanar and MIP reformats were performed. Radiation Dose : 1. Chest: CTDI volume is 9.2 mGy. Dose-length product is 330 mGy*cm The dose indicators for CT are the volume Computed Tomography (CT) Dose Index (CTDIvol) and the Dose Length Product (DLP), and are measured in units of mGy and mGy-cm, respectively. These indicators are not patient dose, but values generated from the CT scanner acquisition factors. The report includes radiation exposure data for exposures received during this examination. Findings: Pulmonary artery: No pulmonary embolism Lower neck: Normal thyroid. Lungs: Moderate to severe centrilobular emphysema. Multiple irregular densities (at least 5) are seen throughout both lungs, the largest measuring up to 2.4 cm in the right lower lobe. Heart/Vascular Structures: Normal heart size. No pericardial effusion. Lymph Nodes: No adenopathy Pleura: No pleural effusion or significant pneumothorax. Musculoskeletal: No acute osseous abnormality. Soft tissues: Normal. Upper abdomen: Limited portions of the upper abdomen are unremarkable. IMPRESSION: 1. No pulmonary embolism. 2. Multiple irregular densities (at least 5) are seen throughout both lungs, the largest measuring up to 2.4 cm in the right lower lobe. Differential considerations include chronic scarring, infectious process, or metastatic disease. Recommend correlation with PET-CT. 3. Moderate to severe centrilobular emphysema.
[2024-12-06] MEDS: PIPERACILLIN-TAZOB 3.375GM 100 ML IV ONE (18:45)
[2024-12-06] MEDS: VANCOMYCIN 1GM/250ML KIT 250 ML IV ONE (19:50)
[2024-12-06] MEDS: ALBUTEROL SULF 2.5 MG/0.5ML(0.5%) NEB SOLN NEB PRN (21:57)
[2024-12-06] MEDS: IPRATROPIUM BROM 0.5 MG/2.5ML INH SOL NEB PRN (21:57)
[2024-12-07] VITALS (102 sets, daily range): BP systolic 83–148; BP diastolic 39–75; PULSE 71–97; RESP 16–31; TEMP 97.5–99.1; O2SAT 80–100
[2024-12-07] MEDS: PIPERACILLIN-TAZOB 3.375GM 100 ML IV SCH (01:57)
--- NOTE | 2024-12-07 02:57 | DVHSR ---
APPROVED REPORT EXAM: Two-dimensional and M-mode echocardiogram with Doppler and color Doppler. Blood Pressure: 80/46 mmHg INDICATION Pulm congestion R/O HF RISK FACTORS Height: 5'2", Weight: 120 DIMENSIONS LVDd2.7 (3.8-5.7cm)LA (2D)2.6 (1.9-4.0cm)Aortic Root3.0 (2.0-3.7cm) LVDs1.9 (2.5-4.0cm)LA (MM) (1.9-4.0cm)Aortic Cusp Exc1.5 (1.5-2.0cm) EF (%) 65.0 (55-70%)Rt. Atrium3.2 (1.9-4.0cm)Asc. Aorta cm IVSd0.9 (0.7-1.1cm)RV (D) (1.8-2.4cm) PWd1.0 (0.7-1.1cm) Mitral Valve MitralMitral Stenosis E wave0.80m/sMV Mean GR.mmHg A wave1.25m/sMV Peak GR.mmHg E/A ratio0.62D MVAcm2 DECEL [id number] 1/2 Timems Aortic Valve Aortic ValveAortic Stenosis LVOT Diameter1.8 (1.8-2.4cm)Doppler AVAcm2 2D AVA2.65cm2 Pulmonic Valve V21.28m/s Tricuspid Valve TR Velocity3.50m/s [id number] Other Information Technically limited study due to body habitus, patient position and on vent. Conclusion MILD LVH AND MILD LV DIASTOLIC DYSFUNCTION LV EF IS 65% DYSKINESIS OF IVS MODERATELY DILATED RV AND RA MODERATELY SEVERE PULMONARY HYPERTENSION RVSP IS 57 MM OF HG AND VERY HIGH ABOVE FINDINGS CONSISTENT WITH RV FAILURE WITH SEVERE PULMONARY HYPERTENSION GROSSLY NORMAL VALVES NO EFFUSION
[2024-12-07 03:45] LABS: Hematocrit 34.8 % (36.0-46.0); Hemoglobin 11.5 g/dL (12.2-16.2); Mean Corpuscular Hemoglobin 29.8 pg (28.0-32.0); Mean Corpuscular Volume 89.5 fL (80.0-100.0); Nucleated Red Blood Cells % 0.1 %
[2024-12-07 04:01] LABS: Alanine Aminotransferase 13 U/L (7-40); Albumin 4.0 g/dL (3.2-4.8); Alkaline Phosphatase 68 U/L (46-116); Anion Gap 7 (5-15); BUN/Creatinine Ratio 17.8 (10.0-20.0); Blood Urea Nitrogen 13 mg/dL (9-23); Calcium 9.3 mg/dL (8.7-10.4); Carbon Dioxide 29 mmol/L (20-31); Chloride 105 mmol/L (98-107); Potassium 5.0 mmol/L (3.5-5.1); Sodium 141 mmol/L (136-145); Total Protein 6.2 g/dL (5.7-8.2)
[2024-12-07 04:02] LABS: Bilirubin, Total 0.3 mg/dL (0.2-1.0)
[2024-12-07 04:35] LABS: Glucose 156 mg/dL (74-106)
--- NOTE | 2024-12-07 06:58 | DVH ---
CHEST RADIOGRAPH Indication: INTUBATED Technique: Single frontal view of the chest was obtained COMPARISON: CT CT ANGIO CHEST CONTRAST on DOS: 12/06/24, XY CHEST PORTABLE on DOS: 04/07/24, XY CHEST PORTABLE on DOS: 04/06/24, XY CHEST PORTABLE on DOS: 04/04/24, XY CHEST XRAY 1 VIEW on DOS: 04/01/24, XY CHEST PORTABLE on DOS: 04/04/24 FINDINGS: Lines and Tubes: Endotracheal tube , right central venous catheter. Enteric catheter in satisfactory position. Lungs: Congestion. Pleura: No effusion. No pneumothorax. Cardiomediastinal contours: Unremarkable Bones: Unremarkable IMPRESSION: Lines and tubes in satisfactory position. No significant interval change.
[2024-12-07] MEDS: AZITHROMYCIN 500MG/ 250ML 250 ML IV SCH (09:56)
[2024-12-07] MEDS: methylPREDNISolone SOD SUCC 40 MG/ML VL IV SCH (09:56)
[2024-12-07] MEDS: PANTOPRAZOLE 40 MG/10 ML VIAL INJ IV SCH (09:56)
[2024-12-07] MEDS: ENOXAPARIN SOD 40 MG/0.4 ML SYRINGE SC SCH (10:02)
--- NOTE | 2024-12-07 11:37 | DVHPN2 ---
Subjective This is a 64 year old female with medical history of COPD, BIBA presenting to the ED with chief complaint of SOB. EMS reports that the patient has been experiencing SOB for some time now. EMS relays that the patient was started on CPAP on route to the ED along with a DuoNeb breathing treatment. 12/07: 64-year-old female history of COPD came in yesterday acute hypoxic respiratory failure, sepsis requiring levo sedated currently on Versed propofol fentanyl, pulmonology following we will go down on sedation. Ventilated settings a.c. 20/3 50/30%/5.0. Making good urine output. We will pressures are stable. Off of levo now. Appears euvolemic, no wheezing. Possible COPD affect on condition. Continuing broad-spectrum antibiotics vancomycin Zosyn we will add prednisone. No sepsis steroids right now just prednisone. No CPAP trial today, likely tomorrow. No feeds today unless patient is unable to be weaned off with CPAP while trial tomorrow Reviewed: Care Plan Changes from previous H/P or p: No Changes General: Per HPI Objective Vitals Vital Signs Date Time Temp Pulse Resp B/P (MAP) Pulse Ox O2 Delivery O2 Flow Rate FiO2 12/07/24 11:30 96 29 133/70 (91) 97 30 12/07/24 10:30 98.6 209.5 12/07/24 10:00 Mechanical Ventilator+ Intake/Output Intake and Output 12/07/24 07:00 Intake Total 554.402 ml Output Total 850 ml Balance -295.598 ml Intake IV Total 554.402 ml Output Urine Total 850 ml Exam GEN: Intubated sedated HEENT: NC/AT; MMM. CV: RRR, no m/r/g. LUNGS: CTAB, no w/r/c. ABD: Soft, NT/ND, NBS, no masses or organomegaly. EXT: skin Warm, well perfused. no rashes. No clubbing, cyanosis, or edema. NEURO: Ambulating with no limitations. No focal deficits. Medications Current Medications Medications Dose Ordered Sig/Aida Route Start Time Stop Time Status Last Admin Dose Admin Propofol 100 ml @ 1.497 mls/ hr Q24H IV 12/06/24 13:45 12/06/24 22:42 10.478 MLS/HR Norepinephrine Bitartrate 250 ml @ 3.75 mls/hr Q24H IV 12/06/24 13:45 12/06/24 13:50 3.75 MLS/HR Midazolam HCl 50 ml @ 1 mls/hr Q24H IV 12/06/24 13:49 12/07/24 06:08 8 MLS/HR Fentanyl Citrate 250 ml @ 2.5 mls/hr Q24H IV 12/06/24 17:45 12/06/24 17:50 2.5 MLS/HR Vancomycin HCl 0 ml @ 0 mls/hr UD IV 12/06/24 18:00 Piperacillin Sod/ Tazobactam Sod 100 ml @ 25 mls/hr Q8H IV 12/07/24 02:00 12/07/24 01:57 25 MLS/HR Docusate Sodium 100 mg BIDPRN PRN PO 12/06/24 18:00 Acetaminophen 650 mg Q6HP PRN PO 12/06/24 18:00 Acetaminophen/ Hydrocodone Bitart 1 tab Q4HP PRN PO 12/06/24 18:00 Hydromorphone HCl 0.5 mg Q4HP PRN IV 12/06/24 18:00 Ondansetron HCl 4 mg Q4HP PRN IV 12/06/24 18:00 Enoxaparin Sodium 40 mg DAILY SC 12/07/24 10:00 12/07/24 10:02 40 MG Albuterol 2.5 mg Q4HPRN PRN NEB 12/06/24 18:00 12/07/24 09:25 2.5 MG Ipratropium [place] 0.5 mg Q4HPRN PRN NEB 12/06/24 18:00 12/07/24 09:25 0.5 MG Pantoprazole Sodium 40 mg DAILY IV 12/07/24 10:00 12/07/24 09:56 40 MG Azithromycin 250 ml @ 125 mls/hr DAILY IV 12/07/24 10:00 12/07/24 09:56 125 MLS/HR Methylprednisolone Sodium Succinate 40 mg BID IV 12/07/24 10:00 12/07/24 09:56 40 MG Laboratory Results Laboratory Tests 12/07/24 03:05 Chemistry Test 12/06/24 14:38 12/07/24 03:05 Albumin 4.8 g/dL (3.2-4.8) 4.0 g/dL (3.2-4.8) Calcium Level 9.8 mg/dL (8.7-10.4) 9.3 mg/dL (8.7-10.4) Magnesium Level 2.5 mg/dL (1.6-2.6) Total Protein 7.1 g/dL (5.7-8.2) 6.2 g/dL (5.7-8.2) Coagulation Test 12/06/24 14:38 D-Dimer, Quantitative 0.53 mg/L FEU (0.0-0.49) H Cardiac Markers Test 12/06/24 14:38 B-Type Natriuretic Peptide 22.55 pg/mL (0-100) LFT Test 12/06/24 14:38 12/07/24 03:05 Alanine Aminotransferase (ALT) 12 U/L (7-40) 13 U/L (7-40) Alkaline Phosphatase 82 U/L (46-116) 68 U/L (46-116) Aspartate Amino Transferase (AST) 26 U/L (13-40) 21 U/L (13-40) Total Bilirubin 0.7 mg/dL (0.2-1.0) 0.3 mg/dL (0.2-1.0) Urinalysis Test 12/06/24 13:15 Urine Color Light-yellow (Yellow) Urine Clarity Clear (Clear) Urine pH 6.5 (5.0-9.0) Urine Specific [place] 1.011 (1.001-1.035) Urine Protein Negative (Negative) Urine Ketones Negative (Negative) Urine Blood Negative /uL (Negative) Urine Nitrite Negative (Negative) Urine Bilirubin Negative (Negative) Urine Urobilinogen Normal mg/dL (Negative) Urine Leukocyte Esterase Negative /uL (Negative) Urine RBC 1 /hpf (0 - 4) Urine Microscopic WBC < 1 /HPF (0-5) Urine Squamous Epithelial Cells Few /hpf (<5) Urine Bacteria None seen /hpf (None Seen) Urine Glucose Normal mg/dL (Normal) Blood Gas Results Test 12/06/24 15:07 12/06/24 16:12 Arterial Blood pH 7.286 (7.350-7.450) 7.505 (7.350-7.450) FiO2 % 60.0 60.0 Microbiology Microbiology Date/Time Source Procedure Growth Status 12/06/24 14:22 Sputum Expectorated Sputum Gram Stain - Final Resulted 12/06/24 14:22 Sputum Expectorated Sputum Respiratory Culture - Preliminary Resulted Labs and/or images reviewed: Labs reviewed by me, Image(s) reviewed by me Assessment/Plan Assessment/Plan Diagnosis: Acute hypoxic respiratory failure requiring mechanical ventilation Hypotension due to sepsis Septic shock due to pneumonia Pneumonia, Gram-negative Gram-positive likely PE ruled out Acute on chronic COPD, acute exacerbation possible Leukocytosis Neutrophilia NSTEMI Troponinemia, likely type 2, rule out type 1 Tachypnea Tachycardia Plan: -prn pain control Duo nebs q.6 Azithromycin IV 500 daily Lovenox DVT prophylaxis Solu-Medrol 40 IV b.i.d. Levophed with a goal map more than 65 Protonix 40 IV daily GI prophylaxis Zosyn IV antibiotic Sedation propofol and Versed and fentanyl maintain RASS -2 Vancomycin, per pharmacy ICU Full code Plan discussed with: Patient My Orders Orders - TAE SINGLETON MD Procedure Category Date Status Time Covid19 Antigen Sandra LAB 12/07/24 Logged Rapid Influenza A&B LAB 12/07/24 Logged 09:22 Azithromycin 500mg/ PHA 12/07/24 In Process 250ml (Zithromax 50 10:00 Methylprednisolone PHA 12/07/24 In Process Sod Succ (Solu Medrol 10:00 Date of Service: Dec 07, 2024 Billing Provider: TAE SINGLETON MD Common Visit Codes: [id number] CARE 30-74 MIN TAE SINGLETON MD Dec 07, 2024 11:37
--- NOTE | 2024-12-07 14:46 | DVHPN2 ---
Progress Note - Dictate Date Seen: Dec 06, 2024 Medical Necessity Reason Pt with a Central, PICC or Fol: No vital signs Vital Sign Date Time Temp Pulse Resp B/P (MAP) Pulse Ox O2 Delivery O2 Flow Rate FiO2 12/07/24 14:30 88/39 12/07/24 14:15 89 23 96 12/07/24 14:00 Mechanical Ventilator+ 30 30 12/07/24 11:00 98.6 209.5 Total Intake and Output 12/06/24 12/06/24 12/07/24 15:00 23:00 07:00 Intake Total 100 ml 215.181 ml 239.221 ml Output Total 850 ml Balance 100 ml 215.181 ml -610.779 ml medications Current Medications Medications Dose Ordered Sig/Aida Route Start Time Stop Time Status Last Admin Dose Admin Propofol 100 ml @ 1.497 mls/ hr Q24H IV 12/06/24 13:45 12/07/24 14:34 4.491 MLS/HR Norepinephrine Bitartrate 250 ml @ 3.75 mls/hr Q24H IV 12/06/24 13:45 12/06/24 13:50 3.75 MLS/HR Midazolam HCl 50 ml @ 1 mls/hr Q24H IV 12/06/24 13:49 12/07/24 13:16 8 MLS/HR Fentanyl Citrate 250 ml @ 2.5 mls/hr Q24H IV 12/06/24 17:45 12/06/24 17:50 2.5 MLS/HR Vancomycin HCl 0 ml @ 0 mls/hr UD IV 12/06/24 18:00 Piperacillin Sod/ Tazobactam Sod 100 ml @ 25 mls/hr Q8H IV 12/07/24 02:00 12/07/24 12:13 25 MLS/HR Docusate Sodium 100 mg BIDPRN PRN PO 12/06/24 18:00 Acetaminophen 650 mg Q6HP PRN PO 12/06/24 18:00 Acetaminophen/ Hydrocodone Bitart 1 tab Q4HP PRN PO 12/06/24 18:00 Hydromorphone HCl 0.5 mg Q4HP PRN IV 12/06/24 18:00 Ondansetron HCl 4 mg Q4HP PRN IV 12/06/24 18:00 Enoxaparin Sodium 40 mg DAILY SC 12/07/24 10:00 12/07/24 10:02 40 MG Albuterol 2.5 mg Q4HPRN PRN NEB 12/06/24 18:00 12/07/24 09:25 2.5 MG Ipratropium [place] 0.5 mg Q4HPRN PRN NEB 12/06/24 18:00 12/07/24 09:25 0.5 MG Pantoprazole Sodium 40 mg DAILY IV 12/07/24 10:00 12/07/24 09:56 40 MG Azithromycin 250 ml @ 125 mls/hr DAILY IV 12/07/24 10:00 12/07/24 09:56 125 MLS/HR Methylprednisolone Sodium Succinate 40 mg BID IV 12/07/24 10:00 12/07/24 09:56 40 MG laboratory and microbiology Laboratory Tests 12/07/24 03:05 Test 12/07/24 03:05 Range/Units Serum Glucose 156 H 74-106 mg/dL Assessment/Plan 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 Multiple irregular densities (at least 5) are seen throughout both lungs, the largest measuring up to 2.4 cm in the right lower lobe. D Moderate to severe centrilobular emphysema. ABG reviewed pH 7.28, pCO2 54, pO2 148 Management Vent support Titrate to maintain sats 90% or above Sedation holiday daily If patient follows commands, proceed to weaning trial Pressure support 7/5, extubate when ready Continue antibiotics F/u cultures Bronchodilators Continue steroids Monitor renal function Monitor electrolytes Supplement as needed Pressors as needed for hemodynamic support To maintain a mean arterial pressure of 65 mmHg DVT prophylaxis Critical care time 35 minutes Dietary Evaluation Review Comments: 1) If patient remains NPO > 7 days, consider EN/TPN to meet at least 75% of estimated daily needs 2) If GI is preferred, consider Vital AF 1.2 @ 30 mL/hr goal rate as tolerated. Flush with 200 mL free H2O Q6H. TF regimen with provide 864 kcals, 54g Pro, and 1384 mL free H2O (including flushes) per 24 hrs. Goal rate will meet ~ 91% estimated daily energy needs and ~ 88% estimated daily protein needs. 3) Advance to regular diet when medically feasible, pending ST approval 4) Refer to outpatient RD for weight management 6) Follow-up with pulmonology 7) Continue to monitor I&O, labs, and skin integrity Expected Outcomes/Goals: 1) patient to receive nutritional support within 7 days of NPO status 2) labs to improve 3) diet to advance 4) f/u in 3-5 days Plan discussed with: Other (Rn) YUNIOR MCCARTHY MD Dec 07, 2024 14:46
[2024-12-07 16:52] LABS: COVID19 ANTIGEN SOFIA FIA POSITIVE (NEGATIVE)
[2024-12-07] MEDS: VANCOMYCIN 500mg/100mL 100 ML IV SCH (17:27)
[2024-12-07 18:52] LABS: Cocaine Screen, Urine Pos (NEGATIVE); Opiate Scree,Urine Neg (NEGATIVE)
[2024-12-07 18:57] LABS: Amphetamine Screen, Urine Neg (NEGATIVE); Barbiturate Scree,Urine Neg (NEGATIVE); Benzodiazephine Screen, Urine Neg (NEGATIVE); Cannabinoid Screen, Urine Neg (NEGATIVE); Phencyclidine Screen, Urine Neg (NEGATIVE)
[2024-12-08] VITALS (97 sets, daily range): BP systolic 90–137; BP diastolic 48–73; PULSE 60–95; RESP 13–30; TEMP 96.6–97.7; O2SAT 95–100
[2024-12-08 04:22] LABS: Alanine Aminotransferase 10 U/L (7-40); Alkaline Phosphatase 61 U/L (46-116); Anion Gap 7 (5-15); BUN/Creatinine Ratio 26.4 (10.0-20.0); Blood Urea Nitrogen 14 mg/dL (9-23); Calcium 8.9 mg/dL (8.7-10.4); Carbon Dioxide 30 mmol/L (20-31); Chloride 104 mmol/L (98-107); Potassium 3.9 mmol/L (3.5-5.1); Sodium 141 mmol/L (136-145); Total Protein 5.9 g/dL (5.7-8.2)
[2024-12-08 04:23] LABS: Albumin 3.8 g/dL (3.2-4.8); Hematocrit 32.0 % (36.0-46.0); Hemoglobin 10.6 g/dL (12.2-16.2); Mean Corpuscular Hemoglobin 29.5 pg (28.0-32.0); Mean Corpuscular Volume 89.0 fL (80.0-100.0); Nucleated Red Blood Cells % 0.0 %
[2024-12-08 04:29] LABS: Bilirubin, Total 0.3 mg/dL (0.2-1.0); Glucose 126 mg/dL (74-106)
--- NOTE | 2024-12-08 05:08 | DVH ---
CHEST RADIOGRAPH Indication: SOB, INTUBATTED Technique: Single frontal view of the chest was obtained COMPARISON: XY CHEST PORTABLE on DOS: 12/07/24, CT CT ANGIO CHEST CONTRAST on DOS: 12/06/24, XY CHEST P ORTABLE on DOS: 04/07/24, XY CHEST PORTABLE on DOS: 04/06/24, XY CHEST PORTABLE on DOS: 04/04/24 FINDINGS: Lines and Tubes: Unchanged. ACDF hardware. Lungs: Clear. Stable chronic appearing bilateral interstitial pulmonary markings. Pleura: No effusion. No pneumothorax. Cardiomediastinal contours: Unremarkable Bones: Unremarkable IMPRESSION: 1. No acute disease. Stable chronic appearing bilateral interstitial pulmonary markings. 2. Lines and tubes unchanged.
--- NOTE | 2024-12-08 10:25 | ECG ---
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
[2024-12-08 11:48] LABS: Base Excess 2.2 mmol/L (-2.0-3.0)
[2024-12-08 11:52] LABS: Base Excess 5.5 mmol/L (-2.0-3.0)
[2024-12-08] MEDS ORDERED: DEXMEDETOMIDINE HCL IN D5W 100 ML IV SCH (12:15)
[2024-12-08] MEDS: FUROSEMIDE 40 MG/4 ML VIAL IV ONE (12:48)
[2024-12-08 16:30] LABS: Base Excess 1.5 mmol/L (-2.0-3.0)
[2024-12-08] MEDS ORDERED: OSELTAMIVIR 75 MG CAP PO ONE (16:30)
[2024-12-08] MEDS: OSELTAMIVIR 30 MG CAP PO ONE (17:32)
--- NOTE | 2024-12-08 19:27 | DVHPNRES ---
Progress Note Date Seen: Dec 08, 2024 Resident Creating Document: GERSON SANTOS RESIDENT Medical Necessity Reason Pt with a Central, PICC or Fol: Yes The following are medically ne: Central Line, Evans Catheter Subjective Review of Systems Patient is a 64-year-old female with a medical history of COPD on home oxygen, hypertension, type 2 diabetes mellitus was brought to the ED via EMS with a chief complaint of worsening shortness of breath. On talking with the patient's son he reports that patient has been having shortness of breath in the last 2 week associated with a cough but denied her having any fevers or expectoration. On arrival to the ED patient was noted to be having tachycardia and tachypnea breathing more than 35 breaths per minute following which she was intubated and put on mechanical ventilation. Initial labs revealed elevated white count with a left shift, urine drug screen was positive for cocaine, chest x-ray showed bilateral hemidiaphragm flattening with a hyperinflation and mild congestion with cephalization of the pulmonary vessels. Patient underwent a CT chest angio which showed no evidence of pulmonary embolism but multiple irregular densities seen throughout both the lungs, the largest measuring up to 2.4 cm in the right lower lobe, [id number] centrilobular emphysema. Patient was positive for COVID-19 and influenza A and B. Medical history: COPD on home oxygen, hypertension, type 2 diabetes mellitus Surgical history: None reported Social history: Patient lives alone, ex-smoker, no alcohol use reported Home medications: Losartan, simvastatin, Trelegy Ellipta Review of systems Patient seen and examined at the bedside. She is responsive to voice commands with a RASS of -3 currently on light sedation with fentanyl and propofol. Minimal ventilator settings with a PEEP 5 and FiO2 30%. Chest x-ray showed mild congestion follow up with Lasix 40 mg IV was given. Objective vital signs Vital Sign Date Time Temp Pulse Resp B/P (MAP) Pulse Ox O2 Delivery O2 Flow Rate FiO2 12/08/24 17:45 97.7 86 20 106/70 (82) 98 97.7 12/08/24 16:02 30 12/08/24 16:00 Mechanical Ventilator+ Total Intake and Output 12/07/24 12/07/24 12/08/24 15:00 23:00 07:00 Intake Total 324.428 ml 369.414 ml 399.872 ml Output Total 485 ml 825 ml Balance 324.428 ml -115.586 ml -425.128 ml medications Current Medications Medications Dose Ordered Sig/Aida Route Start Time Stop Time Status Last Admin Dose Admin Propofol 100 ml @ 1.497 mls/ hr Q24H IV 12/06/24 13:45 12/08/24 18:07 7.484 MLS/HR Norepinephrine Bitartrate 250 ml @ 3.75 mls/hr Q24H IV 12/06/24 13:45 12/07/24 17:24 3.75 MLS/HR Midazolam HCl 50 ml @ 1 mls/hr Q24H IV 12/06/24 13:49 12/08/24 09:16 6 MLS/HR Fentanyl Citrate 250 ml @ 2.5 mls/hr Q24H IV 12/06/24 17:45 12/08/24 06:50 10 MLS/HR Vancomycin HCl 0 ml @ 0 mls/hr UD IV 12/06/24 18:00 Piperacillin Sod/ Tazobactam Sod 100 ml @ 25 mls/hr Q8H IV 12/07/24 02:00 12/08/24 18:09 25 MLS/HR Enoxaparin Sodium 40 mg DAILY SC 12/07/24 10:00 12/08/24 09:18 40 MG Pantoprazole Sodium 40 mg DAILY IV 12/07/24 10:00 12/08/24 09:17 40 MG Azithromycin 250 ml @ 125 mls/hr DAILY IV 12/07/24 10:00 12/08/24 09:48 125 MLS/HR Vancomycin HCl 100 ml @ 200 mls/hr Q8H IV 12/07/24 16:15 12/08/24 17:32 200 MLS/HR Oseltamivir Phosphate 75 mg Q12HR PO 12/08/24 22:00 12/13/24 21:59 UNV Oseltamivir Phosphate 30 mg Q12HR PO 12/08/24 22:00 12/13/24 21:59 Methylprednisolone Sodium Succinate 40 mg BID IV 12/08/24 22:00 Examination Gen - no pallor, no icterus, no extremity edema . Skin - Patients skin is warm and dry. HEENT - normocephalic, atraumatic, moist mucous membranes. Neck - no JVD Pulmonary - B/L equal air entry with a mild rales, no wheezing, no stridor. cardiovascular - regular S1,S2 heard, no added sounds, no murmurs heard. peripheral pulses normal radial 2+, pedal 2+. capillary refill normal <2 secs. GI - soft abdomen. Bowel sounds normoactive Neurological - patient is sedated and on mechanical ventilation with a RASS of - 3 laboratory and microbiology Laboratory Tests 12/08/24 03:15 Test 12/08/24 03:15 Range/Units Serum Glucose 126 H 74-106 mg/dL Microbiology Date/Time Source Procedure Growth Status 12/06/24 20:20 Nose MRSA Screen - Final Complete 12/06/24 14:22 Sputum Expectorated Sputum Gram Stain - Final Resulted 12/06/24 14:22 Sputum Expectorated Sputum Respiratory Culture - Preliminary Resulted 12/06/24 13:15 Voided Urine Urine Culture - Preliminary Resulted Labs and/or images reviewed: Labs reviewed by me, Image(s) reviewed by me Problem List/Assessment/Plan Problem List/Assessment/Plan Neurology Acute hypercapnic encephalopathy due to COPD exacerbation - mechanical ventilation and sedated - CPAP trial in the a.m. Respiratory Acute on chronic hypercapnic respiratory failure COPD exacerbation likely due to COVID/influenza Viral pneumonia due to COVID and influenza Cndiezci-yh-ylxwxw emphysema bilateral - ABG reviewed showed mixed respiratory acidosis with metabolic alkalosis - CT chest showed yhqprxww-ul-wjzmoj bilateral emphysematous changes - on mechanical ventilation with a minimal settings peep 5, FiO2 30% - COVID and influenza positive - Solu-Medrol b.i.d. - oseltamivir - broad-spectrum antibiotic coverage - IV Lasix Cardiovascular Acute on chronic diastolic heart failure Bilateral pulmonary vascular congestion Severe pulmonary hypertension - echo showed LVEF 65% with moderately dilated RV and RA and RVSP of 57 mmHg indicating severe pulmonary hypertension - IV Lasix 40 mg Nephrology - kidney function normal PUD prophylaxis: Protonix DVT prophylaxis: Lovenox Intubated on 12/06 Right subclavian CVC inserted on 12/06 Evans's inserted on 12/06 Goals of care discussed with the patient's son Lenore. He was explained about the patient's diagnosis of COVID and influenza which likely caused COPD exacerbation and was also explained that she is currently stable on mechanical ventilation and feel undergo a CPAP trial in the morning Code status: Full code Critical care time spent excluding procedures: 81 minutes Plan discussed with Dr. Rao Plan discussed with: Son, Other (RN Lucrecia) My Orders My Orders Orders - GERSON SANTOS Procedure Category Date Status Time Dexmedetomidine Hcl PHA 12/08/24 In Process In D5w (Precedex) 12:15 Methylprednisolone PHA 12/08/24 In Process Sod Succ (Solu Medrol 22:00 Magnesium LAB 12/09/24 Verified 04:00 Chest Xray 1 View XY 12/09/24 Logged 04:00 Abg W/ Co-Ox RT 12/09/24 Logged 04:00 Dietary Evaluation Review Comments: 1) If patient remains NPO > 7 days, consider EN/TPN to meet at least 75% of estimated daily needs 2) If GI is preferred, consider Vital AF 1.2 @ 30 mL/hr goal rate as tolerated. Flush with 200 mL free H2O Q6H. TF regimen with provide 864 kcals, 54g Pro, and 1384 mL free H2O (including flushes) per 24 hrs. Goal rate will meet ~ 91% estimated daily energy needs and ~ 88% estimated daily protein needs. 3) Advance to regular diet when medically feasible, pending ST approval 4) Refer to outpatient RD for weight management 6) Follow-up with pulmonology 7) Continue to monitor I&O, labs, and skin integrity Expected Outcomes/Goals: 1) patient to receive nutritional support within 7 days of NPO status 2) labs to improve 3) diet to advance 4) f/u in 3-5 days Date of Service: Dec 08, 2024 Billing Provider: KIRILL RAO MD Common Visit Codes: 76175-[id number] CARE 30-74 MIN, [id number] CARE-EACH +30MIN GERSON SANTOS Dec 08, 2024 19:27 KIRILL RAO MD Dec 09, 2024 13:04
[2024-12-08] MEDS ORDERED: Glucerna 1.2 Cal 1Liter BOTTLE GT SCH (19:30)
[2024-12-08] MEDS: OSELTAMIVIR 30 MG CAP PO SCH (21:17)
[2024-12-08] MEDS: methylPREDNISolone SOD SUCC 40 MG/ML VL IV SCH (21:19)
[2024-12-08] MEDS ORDERED: OSELTAMIVIR 75 MG CAP PO SCH (22:00)
[2024-12-09] VITALS (107 sets, daily range): BP systolic 58–173; BP diastolic 48–92; PULSE 49–101; RESP 11–26; TEMP 94.4–99.9; O2SAT 83–100
[2024-12-09] MEDS: DEXMEDETOMIDINE HCL IN D5W 100 ML IV ONE (01:32)
[2024-12-09] MEDS: DEXMEDETOMIDINE HCL IN D5W 100 ML IV SCH (02:21)
[2024-12-09] MEDS: DexmedeTOMIDine 4 ML IV ONE (02:21)
[2024-12-09 03:59] LABS: Hematocrit 34.2 % (36.0-46.0); Hemoglobin 11.2 g/dL (12.2-16.2); Mean Corpuscular Hemoglobin 29.5 pg (28.0-32.0); Mean Corpuscular Volume 90.2 fL (80.0-100.0); Nucleated Red Blood Cells % 0.0 %
[2024-12-09 04:03] LABS: Alanine Aminotransferase 11 U/L (7-40); Albumin 3.8 g/dL (3.2-4.8); Alkaline Phosphatase 60 U/L (46-116); Anion Gap 7 (5-15); BUN/Creatinine Ratio 24.2 (10.0-20.0); Blood Urea Nitrogen 15 mg/dL (9-23); Calcium 8.8 mg/dL (8.7-10.4); Carbon Dioxide 31 mmol/L (20-31); Chloride 102 mmol/L (98-107); Magnesium 2.2 mg/dL (1.6-2.6); Potassium 3.8 mmol/L (3.5-5.1); Sodium 140 mmol/L (136-145); Total Protein 6.1 g/dL (5.7-8.2)
[2024-12-09 04:06] LABS: Bilirubin, Total 0.2 mg/dL (0.2-1.0); Glucose 118 mg/dL (74-106)
--- NOTE | 2024-12-09 05:25 | DVH ---
CHEST RADIOGRAPH Indication: on vent Technique: Single frontal view of the chest was obtained COMPARISON: XY CHEST PORTABLE on DOS: 12/08/24, XY CHEST PORTABLE on DOS: 12/07/24, XY CHEST PORTABLE o n DOS: 04/07/24, XY CHEST PORTABLE on DOS: 04/06/24, XY CHEST PORTABLE on DOS: 04/04/24 FINDINGS: Lines and Tubes: Unchanged. Lungs: No evidence of focal consolidation. Stable chronic appearing bilateral interstitial pulmonary markings. Pleura: No effusion. No pneumothorax. Cardiomediastinal contours: Unremarkable Bones: Unremarkable IMPRESSION: 1. No acute disease. Stable chronic appearing bilateral interstitial pulmonary markings. 2. Lines and tubes unchanged.
[2024-12-09] MEDS: FUROSEMIDE 40 MG/4 ML VIAL IV ONE ×2 (06:43→11:53)
[2024-12-09 07:32] LABS: Base Excess 7.0 mmol/L (-2.0-3.0)
[2024-12-09 09:36] LABS: Base Excess 6.6 mmol/L (-2.0-3.0)
[2024-12-09] MEDS: VANCOMYCIN 500mg/100mL 100 ML IV SCH (09:46)
--- NOTE | 2024-12-09 18:09 | DVHPNRES ---
Progress Note Date Seen: Dec 09, 2024 Resident Creating Document: GERSON SANTOS RESIDENT Medical Necessity Reason Pt with a Central, PICC or Fol: Yes The following are medically ne: Central Line, Evans Catheter Subjective Review of Systems 12/09 Patient seen and examined at the bedside. CPAP trial was attempted but after about with a minutes patient had to be terminated. After a couple of his another CPAP trial was attempted follow up with the patient to be done. Overnight patient will be kept sedated lightly and CPAP trial will be attempted again in the morning. Bilateral pulmonary vascular congestion with the increased vascular markings, patient on Lasix 40 mg b.i.d. Objective vital signs Vital Sign Date Time Temp Pulse Resp B/P (MAP) Pulse Ox O2 Delivery O2 Flow Rate FiO2 12/09/24 16:00 30 12/09/24 16:00 98.2 63 20 110/63 (79) 100 208.8 12/09/24 16:00 Mechanical Ventilator+ Total Intake and Output 12/08/24 12/08/24 12/09/24 15:00 23:00 07:00 Intake Total 361.889 ml 292.372 ml 359.839 ml Output Total 2150 ml 250 ml Balance 361.889 ml -1857.628 ml 109.839 ml medications Current Medications Medications Dose Ordered Sig/Aida Route Start Time Stop Time Status Last Admin Dose Admin Propofol 100 ml @ 1.497 mls/ hr Q24H IV 12/06/24 13:45 12/08/24 18:07 7.484 MLS/HR Norepinephrine Bitartrate 250 ml @ 3.75 mls/hr Q24H IV 12/06/24 13:45 12/07/24 17:24 3.75 MLS/HR Midazolam HCl 50 ml @ 1 mls/hr Q24H IV 12/06/24 13:49 12/08/24 09:16 6 MLS/HR Fentanyl Citrate 250 ml @ 2.5 mls/hr Q24H IV 12/06/24 17:45 12/09/24 01:42 17.5 MLS/HR Vancomycin HCl 0 ml @ 0 mls/hr UD IV 12/06/24 18:00 Piperacillin Sod/ Tazobactam Sod 100 ml @ 25 mls/hr Q8H IV 12/07/24 02:00 12/09/24 09:45 25 MLS/HR Enoxaparin Sodium 40 mg DAILY SC 12/07/24 10:00 12/09/24 09:46 40 MG Pantoprazole Sodium 40 mg DAILY IV 12/07/24 10:00 12/09/24 09:46 40 MG Azithromycin 250 ml @ 125 mls/hr DAILY IV 12/07/24 10:00 12/09/24 10:25 125 MLS/HR Oseltamivir Phosphate 75 mg Q12HR PO 12/08/24 22:00 12/13/24 21:59 UNV Oseltamivir Phosphate 30 mg Q12HR PO 12/08/24 22:00 12/13/24 21:59 12/09/24 09:46 30 MG Methylprednisolone Sodium Succinate 40 mg BID IV 12/08/24 22:00 12/09/24 09:46 40 MG Enteral Nutritional Formula 1,000 ml 30ML/HR GT 12/08/24 19:30 Vancomycin HCl 100 ml @ 200 mls/hr Q8H IV 12/09/24 10:00 12/09/24 09:46 200 MLS/HR Furosemide 40 mg BIDD IV 12/09/24 18:00 UNV Examination Gen - no pallor, no icterus, no extremity edema . Skin - Patients skin is warm and dry. HEENT - normocephalic, atraumatic, moist mucous membranes. Neck - no JVD Pulmonary - B/L equal air entry with a mild rales, no wheezing, no stridor. cardiovascular - regular S1,S2 heard, no added sounds, no murmurs heard. peripheral pulses normal radial 2+, pedal 2+. capillary refill normal <2 secs. GI - soft abdomen. Bowel sounds normoactive Neurological - patient is sedated and on mechanical ventilation with a RASS of - 3 laboratory and microbiology Laboratory Tests 12/09/24 03:22 Test 12/09/24 03:22 Range/Units Serum Glucose 118 H 74-106 mg/dL Microbiology Date/Time Source Procedure Growth Status 12/07/24 21:05 Blood Blood Culture - Preliminary NO GROWTH AFTER 24 HOURS OF INCUBATION. Resulted 12/06/24 20:20 Nose MRSA Screen - Final Complete 12/06/24 14:22 Sputum Expectorated Sputum Gram Stain - Final Resulted 12/06/24 14:22 Sputum Expectorated Sputum Respiratory Culture - Preliminary Resulted 12/06/24 13:15 Voided Urine Urine Culture - Preliminary Resulted Problem List/Assessment/Plan Problem List/Assessment/Plan Neurology Acute hypercapnic encephalopathy due to COPD exacerbation - mechanical ventilation and sedated - CPAP trial in the a.m. Respiratory Acute on chronic hypercapnic respiratory failure COPD exacerbation likely due to COVID/influenza Viral pneumonia due to COVID and influenza Pwsaiosh-ua-cndmlw emphysema bilateral - ABG reviewed showed mixed respiratory acidosis with metabolic alkalosis - CT chest showed vifwwpuk-pm-fmybxb bilateral emphysematous changes - on mechanical ventilation with a minimal settings peep 5, FiO2 30% - COVID and influenza positive - Solu-Medrol b.i.d. - oseltamivir - broad-spectrum antibiotic coverage - IV Lasix Cardiovascular Acute on chronic diastolic heart failure Bilateral pulmonary vascular congestion Severe pulmonary hypertension - echo showed LVEF 65% with moderately dilated RV and RA and RVSP of 57 mmHg indicating severe pulmonary hypertension - IV Lasix 40 bid Nephrology - kidney function normal PUD prophylaxis: Protonix DVT prophylaxis: Lovenox Intubated on 12/06 Right subclavian CVC inserted on 12/06 Evans's inserted on 12/06 Goals of care discussed with the patient's son Lenore. Explained about the patient feeling the CPAP trial today and that tomorrow it will be attempted again. Code status: Full code Critical care time spent excluding procedures including CPAP trial: 81 minutes Plan discussed with Dr. Rao Plan discussed with: Son, Other (NAJMA Singer) My Orders My Orders Orders - GERSON SANTOS RESIDENT Procedure Category Date Status Time Nutritional PHA 12/08/24 In Process Supplements (Glucerna 19:30 Dexmedetomidine Hcl PHA 12/09/24 In Process In D5w (Precedex) 02:15 Ventilator Orders RT 12/09/24 Transmitted 08:31 Abg W/ Co-Ox RT 12/09/24 Logged 09:28 Respiratory Misc. RT 12/09/24 Transmitted Order 11:05 Furosemide Injection PHA 12/09/24 Logged (Lasix Injection) 18:00 Chest Xray 1 View XY 12/10/24 Logged 04:00 Abg W/ Co-Ox RT 12/10/24 Logged 04:00 Dietary Evaluation Review Comments: 1) If patient remains NPO > 7 days, consider EN/TPN to meet at least 75% of estimated daily needs 2) If GI is preferred, consider Vital AF 1.2 @ 30 mL/hr goal rate as tolerated. Flush with 200 mL free H2O Q6H. TF regimen with provide 864 kcals, 54g Pro, and 1384 mL free H2O (including flushes) per 24 hrs. Goal rate will meet ~ 91% estimated daily energy needs and ~ 88% estimated daily protein needs. 3) Advance to regular diet when medically feasible, pending ST approval 4) Refer to outpatient RD for weight management 6) Follow-up with pulmonology 7) Continue to monitor I&O, labs, and skin integrity Expected Outcomes/Goals: 1) patient to receive nutritional support within 7 days of NPO status 2) labs to improve 3) diet to advance 4) f/u in 3-5 days Date of Service: Dec 09, 2024 Billing Provider: KIRILL RAO MD Common Visit Codes: [id number] CARE 30-74 MIN, [id number] CARE-EACH +30MIN GERSON SANTOS RESIDENT Dec 09, 2024 18:09 KIRILL RAO MD Dec 10, 2024 11:45
[2024-12-09] MEDS: FUROSEMIDE 40 MG/4 ML VIAL IV SCH (18:28)
[2024-12-10] VITALS (84 sets, daily range): BP systolic 94–178; BP diastolic 51–84; PULSE 45–132; RESP 11–34; TEMP 66.6–98.6; O2SAT 74–100
[2024-12-10 03:39] LABS: Hematocrit 33.7 % (36.0-46.0); Hemoglobin 11.4 g/dL (12.2-16.2); Mean Corpuscular Hemoglobin 30.2 pg (28.0-32.0); Mean Corpuscular Volume 89.2 fL (80.0-100.0); Nucleated Red Blood Cells % 0.0 %
[2024-12-10 03:49] LABS: Alanine Aminotransferase 15 U/L (7-40); Albumin 4.1 g/dL (3.2-4.8); Alkaline Phosphatase 65 U/L (46-116); Anion Gap 10 (5-15); BUN/Creatinine Ratio 37.3 (10.0-20.0); Calcium 8.9 mg/dL (8.7-10.4); Sodium 141 mmol/L (136-145); Total Protein 6.6 g/dL (5.7-8.2)
[2024-12-10 03:50] LABS: Bilirubin, Total 0.4 mg/dL (0.2-1.0)
[2024-12-10 03:55] LABS: Carbon Dioxide 34 mmol/L (20-31); Chloride 97 mmol/L (98-107); Glucose 118 mg/dL (74-106); Potassium 3.3 mmol/L (3.5-5.1)
[2024-12-10 03:56] LABS: Blood Urea Nitrogen 31 mg/dL (9-23)
--- NOTE | 2024-12-10 04:40 | DVH ---
CHEST RADIOGRAPH Indication: on vent Technique: Single frontal view of the chest was obtained Comparison: XY CHEST XRAY 1 VIEW on DOS: 12/09/24, XY CHEST PORTABLE on DOS: 12/08/24, XY CHEST PORTABL E on DOS: 12/07/24, CT CT ANGIO CHEST CONTRAST on DOS: 12/06/24, XY CHEST PORTABLE on DOS: 04/07/24 FINDINGS: Lines and Tubes: Endotracheal tube tip 2.9 cm above the pdero. Right IJ line noted. Enteric tube no july. ACDF noted. Lungs: No focal consolidation. Pleura: No effusion. No pneumothorax. Cardiomediastinal contours: Unremarkable Bones: No acute osseous abnormality. IMPRESSION: 1. Endotracheal tube tip 2.9 cm above the pedro. 2. Mild pulmonary vascular congestion. No focal consolidations.
[2024-12-10] MEDS: POTASSIUM CHL 20MEQ/100ML 100 ML IV SCH (06:13)
--- NOTE | 2024-12-10 08:45 | MEDREC ---
[facility] Intervention Section I [facility] Intervention: Review courses of therapy (Please consider D/C azithromycin 500mg IV. Patient has been on this medication for 3 days, which meets the recommended duration for the treatment of COPD or CAP) HI [facility] RESIDENT Dec 10, 2024 08:45
--- NOTE | 2024-12-10 08:48 | DVHPNRES ---
Progress Note Date Seen: Dec 10, 2024 Resident Creating Document: GERSON SANTOS RESIDENT Medical Necessity Reason Pt with a Central, PICC or Fol: Yes The following are medically ne: Central Line, Evans Catheter Subjective Review of Systems 12/10 Patient seen and examined at the bedside. Patient extubated today, following was put on oxygen via nasal cannula oxygen saturation maintaining more than 90%. Swallow evaluation at bedside done patient able to swallow juice and Jell-O without any difficulty and was put on mechanical soft diet. Objective vital signs Vital Sign Date Time Temp Pulse Resp B/P (MAP) Pulse Ox O2 Delivery O2 Flow Rate FiO2 12/10/24 07:20 106/57 12/10/24 06:19 47 20 98 30 12/10/24 06:00 Mechanical Ventilator+ 12/10/24 04:00 98.4 209.1 Total Intake and Output 12/09/24 12/09/24 12/10/24 15:00 23:00 07:00 Intake Total 456.234 ml 206.414 ml 394.753 ml Output Total 1500 ml 550 ml Balance 456.234 ml -1293.586 ml -155.247 ml medications Current Medications Medications Dose Ordered Sig/Aida Route Start Time Stop Time Status Last Admin Dose Admin Propofol 100 ml @ 1.497 mls/ hr Q24H IV 12/06/24 13:45 12/08/24 18:07 7.484 MLS/HR Norepinephrine Bitartrate 250 ml @ 3.75 mls/hr Q24H IV 12/06/24 13:45 12/07/24 17:24 3.75 MLS/HR Midazolam HCl 50 ml @ 1 mls/hr Q24H IV 12/06/24 13:49 12/08/24 09:16 6 MLS/HR Fentanyl Citrate 250 ml @ 2.5 mls/hr Q24H IV 12/06/24 17:45 12/10/24 05:03 10 MLS/HR Vancomycin HCl 0 ml @ 0 mls/hr UD IV 12/06/24 18:00 Piperacillin Sod/ Tazobactam Sod 100 ml @ 25 mls/hr Q8H IV 12/07/24 02:00 12/10/24 02:16 25 MLS/HR Enoxaparin Sodium 40 mg DAILY SC 12/07/24 10:00 12/09/24 09:46 40 MG Pantoprazole Sodium 40 mg DAILY IV 12/07/24 10:00 12/09/24 09:46 40 MG Azithromycin 250 ml @ 125 mls/hr DAILY IV 12/07/24 10:00 12/09/24 10:25 125 MLS/HR Oseltamivir Phosphate 75 mg Q12HR PO 12/08/24 22:00 12/13/24 21:59 UNV Oseltamivir Phosphate 30 mg Q12HR PO 12/08/24 22:00 12/13/24 21:59 12/09/24 21:44 30 MG Methylprednisolone Sodium Succinate 40 mg BID IV 12/08/24 22:00 12/09/24 21:44 40 MG Enteral Nutritional Formula 1,000 ml 30ML/HR GT 12/08/24 19:30 Vancomycin HCl 100 ml @ 200 mls/hr Q8H IV 12/09/24 10:00 12/10/24 02:17 200 MLS/HR Furosemide 40 mg BIDD IV 12/09/24 18:00 12/10/24 07:20 40 MG Potassium Chloride 100 ml @ 50 mls/hr Q2H IV 12/10/24 05:30 12/10/24 09:29 12/10/24 06:13 50 MLS/HR Examination Gen - no pallor, no icterus, no extremity edema . Skin - Patients skin is warm and dry. HEENT - normocephalic, atraumatic, moist mucous membranes. Neck - no JVD Pulmonary - B/L equal air entry without any significant rales, no wheezing, no stridor. cardiovascular - regular S1,S2 heard, no added sounds, no murmurs heard. peripheral pulses normal radial 2+, pedal 2+. capillary refill normal <2 secs. GI - soft abdomen. Bowel sounds normoactive Neurological - patient extubated, alert and oriented to place and person, following commands, no respiratory distress noted laboratory and microbiology Laboratory Tests 12/10/24 02:36 Test 12/10/24 02:36 Range/Units Serum Glucose 118 H 74-106 mg/dL Microbiology Date/Time Source Procedure Growth Status 12/07/24 21:05 Blood Blood Culture - Preliminary NO GROWTH AFTER 48 HOURS OF INCUBATION. Resulted 12/06/24 20:20 Nose MRSA Screen - Final Complete 12/06/24 14:22 Sputum Expectorated Sputum Gram Stain - Final Resulted 12/06/24 14:22 Sputum Expectorated Sputum Respiratory Culture - Preliminary Resulted 12/06/24 13:15 Voided Urine Urine Culture - Final Complete Problem List/Assessment/Plan Problem List/Assessment/Plan Neurology Acute hypercapnic encephalopathy due to COPD exacerbation - mechanical ventilation and sedated - CPAP trial in the a.m. Respiratory Acute on chronic hypercapnic respiratory failure COPD exacerbation likely due to COVID/influenza Viral pneumonia due to COVID and influenza Kljoktqu-wa-vqjyop emphysema bilateral - ABG reviewed showed mixed respiratory acidosis with metabolic alkalosis - CT chest showed sxtsxgwb-gc-bwrlys bilateral emphysematous changes - on mechanical ventilation with a minimal settings peep 5, FiO2 30% - COVID and influenza positive - Solu-Medrol b.i.d. - oseltamivir - broad-spectrum antibiotic coverage - IV Lasix Cardiovascular Acute on chronic diastolic heart failure Bilateral pulmonary vascular congestion Severe pulmonary hypertension - echo showed LVEF 65% with moderately dilated RV and RA and RVSP of 57 mmHg indicating severe pulmonary hypertension - IV Lasix 40 bid Nephrology - kidney function normal PUD prophylaxis: Protonix DVT prophylaxis: Lovenox Intubated on 12/06 Right subclavian CVC inserted on 12/06 Evans's inserted on 12/06 Goals of care discussed with the patient's son Lenore. Code status: Full code Critical care time spent including CPAP trial and extubation, excluding procedures: 81 minutes Plan discussed with Dr. Rao Plan discussed with: Son (Lenore) My Orders My Orders Orders - GERSON SANTOS RESIDENT Procedure Category Date Status Time Abg W/ Co-Ox RT 12/09/24 Logged 09:28 Respiratory Misc. RT 12/09/24 Transmitted Order 11:05 Furosemide Injection PHA 12/09/24 In Process (Lasix Injection) 18:00 Chest Xray 1 View XY 12/10/24 Resulted 04:00 Abg W/ Co-Ox RT 12/10/24 Logged 04:00 Communication Order ORDERS 12/10/24 Transmitted 07:09 Dietary Evaluation Review Comments: 1) If patient remains NPO > 7 days, consider EN/TPN to meet at least 75% of estimated daily needs 2) If GI is preferred, consider Vital AF 1.2 @ 30 mL/hr goal rate as tolerated. Flush with 200 mL free H2O Q6H. TF regimen with provide 864 kcals, 54g Pro, and 1384 mL free H2O (including flushes) per 24 hrs. Goal rate will meet ~ 91% estimated daily energy needs and ~ 88% estimated daily protein needs. 3) Advance to regular diet when medically feasible, pending ST approval 4) Refer to outpatient RD for weight management 6) Follow-up with pulmonology 7) Continue to monitor I&O, labs, and skin integrity Expected Outcomes/Goals: 1) patient to receive nutritional support within 7 days of NPO status 2) labs to improve 3) diet to advance 4) f/u in 3-5 days Date of Service: Dec 10, 2024 Billing Provider: KIRILL RAO MD Common Visit Codes: 37922-[id number] CARE 30-74 MIN, [id number] CARE-EACH +30MIN GERSON SANTOS RESIDENT Dec 10, 2024 08:48 KIRILL RAO MD Dec 11, 2024 11:20
[2024-12-10 09:44] LABS: Base Excess 7.3 mmol/L (-2.0-3.0)
[2024-12-10 10:55] LABS: Base Excess 7.3 mmol/L (-2.0-3.0)
[2024-12-10 16:11] LABS: COVID19 ANTIGEN SOFIA FIA NEGATIVE (NEGATIVE)
[2024-12-10] MEDS: VANCOMYCIN 500mg/100mL 100 ML IV SCH (18:01)
[2024-12-10] MEDS: LIDOCAINE 5% TOPICAL PATCH TOP ONE (20:57)
[2024-12-10] MEDS: CARISOPRODOL 350 MG TAB PO ONE (22:16)
[2024-12-10] MEDS: IPRATROPIUM BROM 0.5 MG/2.5ML INH SOL NEB SCH (22:17)
[2024-12-10] MEDS: ALBUTEROL SULF 2.5 MG/0.5ML(0.5%) NEB SOLN NEB SCH (22:18)
[2024-12-11] VITALS (42 sets, daily range): BP systolic 111–171; BP diastolic 57–93; PULSE 70–107; RESP 13–34; TEMP 98.2–98.8; O2SAT 89–100
[2024-12-11 03:27] LABS: Hematocrit 36.0 % (36.0-46.0); Hemoglobin 11.8 g/dL (12.2-16.2); Mean Corpuscular Hemoglobin 29.2 pg (28.0-32.0); Mean Corpuscular Volume 89.0 fL (80.0-100.0); Nucleated Red Blood Cells % 0.0 %
[2024-12-11 03:47] LABS: Alanine Aminotransferase 21 U/L (7-40); Albumin 4.4 g/dL (3.2-4.8); Alkaline Phosphatase 65 U/L (46-116); Anion Gap 11 (5-15); BUN/Creatinine Ratio 30.5 (10.0-20.0); Bilirubin, Total 0.3 mg/dL (0.2-1.0); Calcium 9.4 mg/dL (8.7-10.4); Chloride 98 mmol/L (98-107); Glucose 96 mg/dL (74-106); Sodium 141 mmol/L (136-145); Total Protein 7.1 g/dL (5.7-8.2)
[2024-12-11 04:21] LABS: Blood Urea Nitrogen 25 mg/dL (9-23); Carbon Dioxide 32 mmol/L (20-31); Potassium 3.2 mmol/L (3.5-5.1)
[2024-12-11] MEDS: hydrALAZINE HCL 20 MG/ML VL IV ONE (05:02)
[2024-12-11] MEDS: POTASSIUM CHL 20MEQ/100ML 100 ML IV SCH ×2 (05:03→20:52)
[2024-12-11 07:18] LABS: Base Excess 6.6 mmol/L (-2.0-3.0)
[2024-12-11] MEDS: AZITHROMYCIN 250 MG TAB PO SCH (09:56)
[2024-12-11] MEDS: LOSARTAN POTASSIUM 50 MG TAB PO SCH (09:57)
[2024-12-11] MEDS: HYDROcodone-ACET 7.5/325MG TAB PO PRN (09:57)
--- NOTE | 2024-12-11 10:12 | DVH ---
CHEST RADIOGRAPH Indication: b/l rales Technique: Single frontal view of the chest was obtained COMPARISON: XY CHEST XRAY 1 VIEW on DOS: 12/10/24, XY CHEST XRAY 1 VIEW on DOS: 12/09/24, XY CHEST PORT ABLE on DOS: 12/08/24, XY CHEST PORTABLE on DOS: 12/07/24, CT CT ANGIO CHEST CONTRAST on DOS: 12/06/24 FINDINGS: Lines and Tubes: Right central venous catheter in satisfactory position. Lungs: Congestion Pleura: No effusion. No pneumothorax. Cardiomediastinal contours: Unremarkable Bones: Unremarkable IMPRESSION: Increased interstital prominence. This may represent pulmonary vascular congestion and/or viral pneum onia. Clinical correlation advised.
[2024-12-11] MEDS: ALBUTEROL SULF HFA 90MCG INH 200DOSE IN PRN (10:40)
--- NOTE | 2024-12-11 17:14 | DVHPNRES ---
Progress Note Date Seen: Dec 11, 2024 Resident Creating Document: GERSON SANTOS RESIDENT Medical Necessity Reason Pt with a Central, PICC or Fol: Yes The following are medically ne: Central Line, Evans Catheter Subjective Review of Systems 12/11 Patient seen and examined at the bedside. ABG showed mixed metabolic and respiratory alkalosis. Patient did not have any respiratory distress. Oxygen saturation maintaining above 90%. Elevated blood pressures for which patient was started on losartan 40 mg daily Objective vital signs Vital Sign Date Time Temp Pulse Resp B/P (MAP) Pulse Ox O2 Delivery O2 Flow Rate FiO2 12/11/24 15:00 101 23 164/78 (106) 95 12/11/24 14:00 Nasal Cannula* 2 N/A Cool Aerosol 12/11/24 12:00 98.2 98.2 Total Intake and Output 12/10/24 12/10/24 12/11/24 15:00 23:00 07:00 Intake Total 461.400 ml 920 ml 1260 ml Output Total 650 ml 1650 ml Balance 461.400 ml 270 ml -390 ml medications Current Medications Medications Dose Ordered Sig/Aida Route Start Time Stop Time Status Last Admin Dose Admin Vancomycin HCl 0 ml @ 0 mls/hr UD IV 12/06/24 18:00 Enoxaparin Sodium 40 mg DAILY SC 12/07/24 10:00 12/11/24 09:57 40 MG Pantoprazole Sodium 40 mg DAILY IV 12/07/24 10:00 12/11/24 09:57 40 MG Oseltamivir Phosphate 75 mg Q12HR PO 12/08/24 22:00 12/13/24 21:59 UNV Oseltamivir Phosphate 30 mg Q12HR PO 12/08/24 22:00 12/13/24 21:59 12/11/24 09:56 30 MG Methylprednisolone Sodium Succinate 40 mg BID IV 12/08/24 22:00 12/11/24 09:57 40 MG Furosemide 40 mg BIDD IV 12/09/24 18:00 12/11/24 05:59 40 MG Albuterol 90 mcg Q4HR PRN IN 12/10/24 13:45 12/11/24 10:40 90 MCG Azithromycin 500 mg DAILY PO 12/11/24 10:00 12/11/24 09:56 500 MG Losartan Potassium 50 mg DAILY PO 12/11/24 10:00 12/11/24 09:57 50 MG Acetaminophen/ Hydrocodone Bitart 1 tab Q6HP PRN PO 12/11/24 09:30 12/11/24 09:57 1 TAB Albuterol 2.5 mg Q6HR NEB 12/11/24 18:00 Ipratropium [place] 0.5 mg Q6HR NEB 12/11/24 18:00 Ceftriaxone Sodium 50 ml @ 100 mls/hr DAILY@09 IV 12/12/24 09:00 Examination Gen - no pallor, no icterus, no extremity edema . Skin - Patients skin is warm and dry. HEENT - normocephalic, atraumatic, moist mucous membranes. Neck - no JVD Pulmonary - B/L equal air entry without any significant rales, no wheezing, no stridor. cardiovascular - regular S1,S2 heard, no added sounds, no murmurs heard. peripheral pulses normal radial 2+, pedal 2+. capillary refill normal <2 secs. GI - soft abdomen. Bowel sounds normoactive Neurological - patient extubated, alert and oriented to place and person, following commands, no respiratory distress noted laboratory and microbiology Laboratory Tests 12/11/24 02:47 Test 12/11/24 02:47 Range/Units Serum Glucose 96 74-106 mg/dL Microbiology Date/Time Source Procedure Growth Status 12/07/24 21:05 Blood Blood Culture - Preliminary NO GROWTH AFTER 72 HOURS OF INCUBATION. Resulted 12/06/24 20:20 Nose MRSA Screen - Final Complete 12/06/24 14:22 Sputum Expectorated Sputum Gram Stain - Final Complete 12/06/24 14:22 Sputum Expectorated Sputum Respiratory Culture - Final Complete 12/06/24 13:15 Voided Urine Urine Culture - Final Complete Problem List/Assessment/Plan Problem List/Assessment/Plan Neurology Acute hypercapnic encephalopathy due to COPD exacerbation, resolved Respiratory Acute on chronic hypercapnic respiratory failure COPD exacerbation likely due to COVID/influenza Viral pneumonia due to COVID and influenza Tgjhqmao-uy-lbolhx emphysema bilateral - ABG reviewed showed mixed metabolic and respiratory alkalosis - CT chest showed pohfpiti-xi-qmwpro bilateral emphysematous changes - on 2-3L oxygen via nasal cannula - retest COVID negative - influenza positive - Solu-Medrol b.i.d. - oseltamivir - antibiotic coverage with the Rocephin and azithromycin Cardiovascular Acute on chronic diastolic heart failure Bilateral pulmonary vascular congestion Severe pulmonary hypertension - echo showed LVEF 65% with moderately dilated RV and RA and RVSP of 57 mmHg indicating severe pulmonary hypertension - IV Lasix 40 bid Nephrology - kidney function normal PUD prophylaxis: Protonix DVT prophylaxis: Lovenox Intubated on 12/06, extubated 12/10 Right subclavian CVC inserted on 12/06 Evans's inserted on 12/06 Goals of care discussed with the patient's son Lenore. Code status: Full code Critical care time spent excluding procedures: 56 minutes Plan discussed with Dr. Rao Plan discussed with: Son, Other (RN Kylee) My Orders My Orders Orders - GERSON SANTOS RESIDENT Procedure Category Date Status Time Abg W/ Co-Ox RT 12/11/24 Logged 07:02 Hydrocodone-Acet PHA 12/11/24 In Process 7.5/325mg Tab ([place] 09:30 Chest Xray 1 View XY 12/11/24 Resulted 09:25 Transfer Orders XFER 12/11/24 Transmitted 09:49 Albuterol Medneb PHA 12/11/24 In Process (Ventolin Medneb) 18:00 Ipratropium Medneb PHA 12/11/24 In Process (Atrovent Medneb) 18:00 Ceftriaxone 1gm/50ml PHA 12/12/24 In Process D5w (Rocephin) 09:00 Complete Blood Count LAB 12/12/24 Verified 04:00 Basic Metabolic Panel LAB 12/12/24 Verified 04:00 Chest Xray 1 View XY 12/12/24 Logged 04:00 Dietary Evaluation Review Comments: 1) If patient remains NPO > 7 days, consider EN/TPN to meet at least 75% of estimated daily needs 2) If GI is preferred, consider Vital AF 1.2 @ 30 mL/hr goal rate as tolerated. Flush with 200 mL free H2O Q6H. TF regimen with provide 864 kcals, 54g Pro, and 1384 mL free H2O (including flushes) per 24 hrs. Goal rate will meet ~ 91% estimated daily energy needs and ~ 88% estimated daily protein needs. 3) Advance to regular diet when medically feasible, pending ST approval 4) Refer to outpatient RD for weight management 6) Follow-up with pulmonology 7) Continue to monitor I&O, labs, and skin integrity Expected Outcomes/Goals: 1) patient to receive nutritional support within 7 days of NPO status 2) labs to improve 3) diet to advance 4) f/u in 3-5 days Date of Service: Dec 11, 2024 Billing Provider: KIRILL RAO MD Common Visit Codes: [id number] CARE 30-74 MIN GERSON SANTOS RESIDENT Dec 11, 2024 17:14 KIRILL RAO MD Dec 13, 2024 11:53
[2024-12-11] MEDS: ALBUTEROL SULF 2.5 MG/0.5ML(0.5%) NEB SOLN NEB SCH (18:27)
[2024-12-11] MEDS: IPRATROPIUM BROM 0.5 MG/2.5ML INH SOL NEB SCH (18:28)
[2024-12-11] MEDS ORDERED: DEXTROSE (50%) 50ML SYRG IV ONE (18:41)
[2024-12-12] VITALS (30 sets, daily range): BP systolic 115–152; BP diastolic 62–105; PULSE 69–100; RESP 11–32; TEMP 98.1–99.2; O2SAT 95–100
[2024-12-12 03:47] LABS: Hematocrit 36.4 % (36.0-46.0); Hemoglobin 11.9 g/dL (12.2-16.2); Mean Corpuscular Hemoglobin 29.4 pg (28.0-32.0); Mean Corpuscular Volume 90.1 fL (80.0-100.0); Nucleated Red Blood Cells % 0.0 %
[2024-12-12 03:48] LABS: Calcium 9.5 mg/dL (8.7-10.4); Chloride 100 mmol/L (98-107); Potassium 3.8 mmol/L (3.5-5.1); Sodium 139 mmol/L (136-145)
[2024-12-12 03:49] LABS: Anion Gap 9 (5-15); Carbon Dioxide 30 mmol/L (20-31)
[2024-12-12 03:54] LABS: BUN/Creatinine Ratio 23.3 (10.0-20.0); Blood Urea Nitrogen 17 mg/dL (9-23)
[2024-12-12 03:55] LABS: Glucose 186 mg/dL (74-106)
--- NOTE | 2024-12-12 05:55 | DVH ---
CHEST RADIOGRAPH Indication: decreased breath sounds Technique: Single frontal view of the chest was obtained COMPARISON: XY CHEST XRAY 1 VIEW on DOS: 12/11/24, XY CHEST XRAY 1 VIEW on DOS: 12/10/24, XY CHEST XRAY 1 VIEW on DOS: 12/09/24, XY CHEST PORTABLE on DOS: 12/08/24, XY CHEST PORTABLE on DOS: 12/07/24, XY SHANNON ST XRAY 1 VIEW on DOS: 12/11/24 FINDINGS: Lines and Tubes: Right central venous catheter in satisfactory position. Lungs: Congestion Pleura: No effusion. No pneumothorax. Cardiomediastinal contours: Unremarkable Bones: Unremarkable IMPRESSION: Increased interstital prominence. This may represent pulmonary vascular congestion and/or viral pneum onia. Clinical correlation advised. No significant interval change.
[2024-12-12] MEDS: cefTRIAXone 1GM/50ML D5W 50 ML IV SCH (09:19)
[2024-12-12] MEDS: NYSTATIN (MOUTH-THROAT) 500,000 UNITS/5 ML SUSP MT ONE (12:15)
[2024-12-12] MEDS: HYDROcodone-ACET 10/325MG TAB PO PRN (13:07)
--- NOTE | 2024-12-12 14:38 | DVHPNRES ---
Progress Note Date Seen: Dec 12, 2024 Resident Creating Document: GERSON SANTOS RESIDENT Medical Necessity Reason Pt with a Central, PICC or Fol: Yes The following are medically ne: Central Line, Evans Catheter Subjective Review of Systems Patient is a 64-year-old female with a medical history of COPD on home oxygen, hypertension, type 2 diabetes mellitus was brought to the ED via EMS with a chief complaint of worsening shortness of breath. On talking with the patient's son he reports that patient has been having shortness of breath in the last 2 week associated with a cough but denied her having any fevers or expectoration. On arrival to the ED patient was noted to be having tachycardia and tachypnea breathing more than 35 breaths per minute following which she was intubated and put on mechanical ventilation. Initial labs revealed elevated white count with a left shift, urine drug screen was positive for cocaine, chest x-ray showed bilateral hemidiaphragm flattening with a hyperinflation and pulmonary vascular congestion. Patient underwent a CT chest angio which showed no evidence of pulmonary embolism but multiple irregular densities seen throughout both the lungs, the largest measuring up to 2.4 cm in the right lower lobe, aupgbgny-qp-[id number] centrilobular emphysema. Patient was positive for COVID-19 and influenza A and B. patient was started on diuresis with Lasix b.i.d. and Solu-Medrol b.i.d. for COPD exacerbation along with oseltamivir. CPAP trial was attempted on 12/09 was unsuccessful has a patient has become apneic. The next day after being on light sedation overnight patient was attempted a CPAP trial again without any hemodynamic or respiratory instability, good weaning parameters and patient was extubated on 12/10. Patient was put on oxygen via nasal cannula 3 L/min which is her home requirement, no respiratory distress was noted. Repeat chest x-ray still showed congestion and she continued to be on diuresis. Patient passed swallow evaluation and was on mechanical soft diet. Echocardiogram showed LVEF of 65% with a severe pulmonary hypertension and increased RVSP. Downgraded to telemetry Medical history: COPD on home oxygen, hypertension, type 2 diabetes mellitus Surgical history: None reported Social history: Patient lives alone, ex-smoker, no alcohol use reported Home medications: Losartan, simvastatin, Trelegy Ellipta 12/12 Patient seen and examined at the bedside. No respiratory distress. Patient complained of tongue pain which is likely from the ETT. Mild oral thrush, nystatin swish and swallow was started. Methylprednisolone was decreased to once daily. Objective vital signs Vital Sign Date Time Temp Pulse Resp B/P (MAP) Pulse Ox O2 Delivery O2 Flow Rate FiO2 12/12/24 12:00 87 12/12/24 12:00 20 97 Nasal Cannula* 3 N/A Cool Aerosol 12/12/24 12:00 98.5 141/76 (97) 98.5 Total Intake and Output 12/11/24 12/11/24 12/12/24 15:00 23:00 07:00 Intake Total 100 ml 700 ml 340 ml Output Total 1800 ml 900 ml Balance 100 ml -1100 ml -560 ml medications Current Medications Medications Dose Ordered Sig/Aida Route Start Time Stop Time Status Last Admin Dose Admin Enoxaparin Sodium 40 mg DAILY SC 12/07/24 10:00 12/12/24 09:20 40 MG Oseltamivir Phosphate 75 mg Q12HR PO 12/08/24 22:00 12/13/24 21:59 UNV Oseltamivir Phosphate 30 mg Q12HR PO 12/08/24 22:00 12/13/24 21:59 12/12/24 09:19 30 MG Methylprednisolone Sodium Succinate 40 mg BID IV 12/08/24 22:00 12/12/24 09:20 40 MG Furosemide 40 mg BIDD IV 12/09/24 18:00 12/12/24 05:20 40 MG Albuterol 90 mcg Q4HR PRN IN 12/10/24 13:45 12/11/24 10:40 90 MCG Azithromycin 500 mg DAILY PO 12/11/24 10:00 12/12/24 09:19 500 MG Losartan Potassium 50 mg DAILY PO 12/11/24 10:00 12/12/24 09:19 50 MG Albuterol 2.5 mg Q6HR NEB 12/11/24 18:00 12/12/24 11:44 2.5 MG Ipratropium [place] 0.5 mg Q6HR NEB 12/11/24 18:00 12/12/24 11:44 0.5 MG Ceftriaxone Sodium 50 ml @ 100 mls/hr DAILY@09 IV 12/12/24 09:00 12/12/24 09:19 100 MLS/HR Pantoprazole Sodium 40 mg DAILY@0600 PO 12/13/24 06:00 Trazodone HCl 100 mg HS PO 12/12/24 22:00 Nystatin 5 ml QID MT 12/12/24 18:00 12/14/24 17:59 Acetaminophen/ Hydrocodone Bitart 1 tab Q8HP PRN PO 12/12/24 11:00 12/12/24 13:07 1 TAB Examination Gen - no pallor, no icterus, no extremity edema . Skin - Patients skin is warm and dry. HEENT - normocephalic, atraumatic, moist mucous membranes. Neck - no JVD Pulmonary - B/L equal air entry without any significant rales, no wheezing, no stridor. cardiovascular - regular S1,S2 heard, no added sounds, no murmurs heard. peripheral pulses normal radial 2+, pedal 2+. capillary refill normal <2 secs. GI - soft abdomen. Bowel sounds normoactive Neurological - patient extubated, alert and oriented to place and person, following commands, no respiratory distress noted laboratory and microbiology Laboratory Tests 12/12/24 03:00 Test 12/12/24 03:00 Range/Units Serum Glucose 186 H 74-106 mg/dL Microbiology Date/Time Source Procedure Growth Status 12/07/24 21:05 Blood Blood Culture - Preliminary NO GROWTH AFTER 72 HOURS OF INCUBATION. Resulted 12/06/24 20:20 Nose MRSA Screen - Final Complete 12/06/24 14:22 Sputum Expectorated Sputum Gram Stain - Final Complete 12/06/24 14:22 Sputum Expectorated Sputum Respiratory Culture - Final Complete 12/06/24 13:15 Voided Urine Urine Culture - Final Complete Problem List/Assessment/Plan Problem List/Assessment/Plan Neurology Acute hypercapnic encephalopathy due to COPD exacerbation, resolved Respiratory Acute on chronic hypercapnic respiratory failure COPD exacerbation likely due to COVID/influenza Viral pneumonia due to COVID and influenza Ienvsarw-fw-ivwohy emphysema bilateral - CT chest showed bnmsjphh-kd-azfyui bilateral emphysematous changes - on 3L oxygen via nasal cannula - retest COVID negative - influenza positive - Solu-Medrol daily - oseltamivir - antibiotic coverage with the Rocephin and azithromycin Cardiovascular Acute on chronic diastolic heart failure Bilateral pulmonary vascular congestion Severe pulmonary hypertension Hypertensive heart disease - echo showed LVEF 65% with moderately dilated RV and RA and RVSP of 57 mmHg indicating severe pulmonary hypertension - IV Lasix 40 bid - losartan 50 mg daily Nephrology - kidney function normal PUD prophylaxis: Protonix DVT prophylaxis: Lovenox Intubated on 12/06, extubated 12/10 Evans's inserted on 12/06 Goals of care discussed with the patient's son Lenore. Patient is hemodynamically stable, no respiratory distress while on 3 L oxygen which is her baseline requirement. Physical therapy evaluation to be done and the patient could be discharged home over the weekend Code status: Full code Critical care time spent excluding procedures: 42 minutes Plan discussed with Dr. Maldonado Plan discussed with: Son, Other (RN Nancy) My Orders My Orders Orders - GERSON SANTOS Procedure Category Date Status Time Pantoprazole Tablet PHA 12/13/24 In Process (Protonix Tablet) 06:00 Trazodone Hcl PHA 12/12/24 In Process (Desyrel) 22:00 Nystatin PHA 12/12/24 In Process (Mouth-Throat) 18:00 Hydrocodone-Acet PHA 12/12/24 In Process 10/325mg Tab ([place] 11:00 Dietary Evaluation Review Comments: 1) If patient remains NPO > 7 days, consider EN/TPN to meet at least 75% of estimated daily needs 2) If GI is preferred, consider Vital AF 1.2 @ 30 mL/hr goal rate as tolerated. Flush with 200 mL free H2O Q6H. TF regimen with provide 864 kcals, 54g Pro, and 1384 mL free H2O (including flushes) per 24 hrs. Goal rate will meet ~ 91% estimated daily energy needs and ~ 88% estimated daily protein needs. 3) Advance to regular diet when medically feasible, pending ST approval 4) Refer to outpatient RD for weight management 6) Follow-up with pulmonology 7) Continue to monitor I&O, labs, and skin integrity Expected Outcomes/Goals: 1) patient to receive nutritional support within 7 days of NPO status 2) labs to improve 3) diet to advance 4) f/u in 3-5 days GERSON SANTOS RESIDENT Dec 12, 2024 14:38
[2024-12-12] MEDS: NYSTATIN (MOUTH-THROAT) 500,000 UNITS/5 ML SUSP MT SCH (17:41)
[2024-12-13] VITALS (14 sets, daily range): BP systolic 107–131; BP diastolic 78–93; PULSE 92–114; RESP 16–22; TEMP 98.1–99.2; O2SAT 94–100
[2024-12-13] MEDS: PANTOPRAZOLE 40 MG TAB PO SCH (05:42)
[2024-12-13 08:04] LABS: Anion Gap 12 (5-15); Carbon Dioxide 29 mmol/L (20-31); Chloride 100 mmol/L (98-107); Potassium 4.0 mmol/L (3.5-5.1); Sodium 141 mmol/L (136-145)
[2024-12-13 08:05] LABS: Calcium 9.8 mg/dL (8.7-10.4)
[2024-12-13 08:10] LABS: BUN/Creatinine Ratio 23.6 (10.0-20.0); Blood Urea Nitrogen 17 mg/dL (9-23)
[2024-12-13 08:11] LABS: Glucose 72 mg/dL (74-106); Magnesium 2.3 mg/dL (1.6-2.6)
[2024-12-13 08:21] LABS: Hematocrit 41.4 % (36.0-46.0); Hemoglobin 13.4 g/dL (12.2-16.2); Mean Corpuscular Hemoglobin 29.0 pg (28.0-32.0); Mean Corpuscular Volume 89.4 fL (80.0-100.0); Nucleated Red Blood Cells % 0.2 %
[2024-12-13] MEDS: methylPREDNISolone SOD SUCC 40 MG/ML VL IV SCH (08:42)
--- NOTE | 2024-12-13 19:05 | DVHPN2 ---
Subjective Cross covering for [employer] [facility] today. Patient is seen evaluated along with the nurse at bedside. Complains of soreness in her mouth more in the dental region not actually in the posterior pharynx region. Requesting her narc around the clock as ordered. Reviewed: Care Plan Changes from previous H/P or p: No Changes General: Per HPI Objective Vitals Vital Signs Date Time Temp Pulse Resp B/P (MAP) Pulse Ox O2 Delivery O2 Flow Rate FiO2 12/13/24 18:40 126/79 12/13/24 16:30 98.1 93 20 96 98.1 12/13/24 11:44 Nasal Cannula* 1 24 Intake/Output Intake and Output 12/13/24 07:00 Intake Total 890 ml Output Total 1900 ml Balance -1010 ml Intake Oral 840 ml IV Total 50 ml Output Urine Total 1900 ml Exam Alert awake oriented x3. Anxious female. HEENT neck supple no JVD. Oropharynx unable to open her mouth widely however no obvious exudates or lesions. Heart regular rate rhythm S1 plus S2. Lungs fair air movement without rales wheezes. Abdomen soft nontender positive bowel sounds. Extremities no edema positive pulses. Medications Current Medications Medications Dose Ordered Sig/Aida Route Start Time Stop Time Status Last Admin Dose Admin Enoxaparin Sodium 40 mg DAILY SC 12/07/24 10:00 12/13/24 08:43 40 MG Oseltamivir Phosphate 75 mg Q12HR PO 12/08/24 22:00 12/13/24 21:59 UNV Oseltamivir Phosphate 30 mg Q12HR PO 12/08/24 22:00 12/13/24 21:59 12/13/24 08:39 30 MG Furosemide 40 mg BIDD IV 12/09/24 18:00 12/13/24 18:40 40 MG Albuterol 90 mcg Q4HR PRN IN 12/10/24 13:45 12/11/24 10:40 90 MCG Azithromycin 500 mg DAILY PO 12/11/24 10:00 12/13/24 08:39 500 MG Losartan Potassium 50 mg DAILY PO 12/11/24 10:00 12/12/24 09:19 50 MG Albuterol 2.5 mg Q6HR NEB 12/11/24 18:00 12/13/24 11:44 2.5 MG Ipratropium [place] 0.5 mg Q6HR NEB 12/11/24 18:00 12/13/24 11:44 0.5 MG Ceftriaxone Sodium 50 ml @ 100 mls/hr DAILY@09 IV 12/12/24 09:00 12/13/24 08:39 100 MLS/HR Pantoprazole Sodium 40 mg DAILY@0600 PO 12/13/24 06:00 12/13/24 05:42 40 MG Trazodone HCl 100 mg HS PO 12/12/24 22:00 12/12/24 22:30 100 MG Nystatin 5 ml QID MT 12/12/24 18:00 12/14/24 17:59 12/13/24 18:43 5 ML Acetaminophen/ Hydrocodone Bitart 1 tab Q8HP PRN PO 12/12/24 11:00 12/13/24 16:47 1 TAB Methylprednisolone Sodium Succinate 40 mg DAILY IV 12/13/24 10:00 12/13/24 08:42 40 MG Laboratory Results Laboratory Tests 12/13/24 04:55 Chemistry Test 12/13/24 04:55 Calcium Level 9.8 mg/dL (8.7-10.4) Magnesium Level 2.3 mg/dL (1.6-2.6) Urinalysis Test 12/06/24 13:15 Urine Color Light-yellow (Yellow) Urine Clarity Clear (Clear) Urine pH 6.5 (5.0-9.0) Urine Specific [place] 1.011 (1.001-1.035) Urine Protein Negative (Negative) Urine Ketones Negative (Negative) Urine Blood Negative /uL (Negative) Urine Nitrite Negative (Negative) Urine Bilirubin Negative (Negative) Urine Urobilinogen Normal mg/dL (Negative) Urine Leukocyte Esterase Negative /uL (Negative) Urine RBC 1 /hpf (0 - 4) Urine Microscopic WBC < 1 /HPF (0-5) Urine Squamous Epithelial Cells Few /hpf (<5) Urine Bacteria None seen /hpf (None Seen) Urine Glucose Normal mg/dL (Normal) Microbiology Microbiology Date/Time Source Procedure Growth Status 12/07/24 21:05 Blood Blood Culture - Final NO GROWTH AFTER 5 DAYS OF INCUBATION. Complete 12/06/24 20:20 Nose MRSA Screen - Final Complete 12/06/24 14:22 Sputum Expectorated Sputum Gram Stain - Final Complete 12/06/24 14:22 Sputum Expectorated Sputum Respiratory Culture - Final Complete 12/06/24 13:15 Voided Urine Urine Culture - Final Complete Assessment/Plan Assessment/Plan Acute on chronic hypercapnic respiratory failure COPD exacerbation likely due to COVID/influenza Viral pneumonia due to COVID and influenza Ahncgbvx-vt-izambj emphysema bilateral Continue present management. I will add viscous lidocaine for her mouth and throat discomfort. We will repeat influenza and COVID test today. If it is negative consider removing isolation. Physical therapy evaluation and consider discharge plan to SNF versus home Plan discussed with: Patient, Other My Orders Orders - TOYA BAUER MD Procedure Category Date Status Time D/C Isolation ORDERS 12/13/24 Transmitted 19:01 Pt Request For Service PT 12/13/24 Transmitted 19:01 Lidocaine 2% Viscous PHA 12/13/24 Transmitted (Xylocaine 2% Visco 19:15 Date of Service: Dec 13, 2024 Billing Provider: TOYA BAUER MD Common Visit Codes: [id number] INP/OBS CARE(MOD) TOYA BAUER MD Dec 13, 2024 19:05
[2024-12-14] VITALS (14 sets, daily range): BP systolic 89–118; BP diastolic 58–79; PULSE 81–99; RESP 14–24; TEMP 97.9–98.7; O2SAT 96–100
[2024-12-14] MEDS: LIDOCAINE VISCOUS 2% 15ML UD MT PRN (10:19)
[2024-12-14] MEDS: SODIUM CHLORIDE 0.9% 250 ML IV ONE (11:45)
--- NOTE | 2024-12-14 17:33 | DVHPN2 ---
Subjective Cross covering for [facility] today. Patient is seen evaluated along with the nurse at bedside. Sore throat is improved. Reviewed: Care Plan Changes from previous H/P or p: No Changes General: Per HPI Objective Vitals Vital Signs Date Time Temp Pulse Resp B/P (MAP) Pulse Ox O2 Delivery O2 Flow Rate FiO2 12/14/24 16:52 97.9 88 17 103/60 (74) 99 97.9 12/13/24 20:00 Nasal Cannula* 3 32 Intake/Output Intake and Output 12/14/24 07:00 Intake Total 1210 ml Output Total 2100 ml Balance -890 ml Intake Oral 1160 ml IV Total 50 ml Output Urine Total 2100 ml Exam Alert awake oriented x3. Anxious female. HEENT neck supple no JVD. Oropharynx unable to open her mouth widely however no obvious exudates or lesions. Heart regular rate rhythm S1 plus S2. Lungs fair air movement without rales wheezes. Abdomen soft nontender positive bowel sounds. Extremities no edema positive pulses. Medications Current Medications Medications Dose Ordered Sig/Aida Route Start Time Stop Time Status Last Admin Dose Admin Enoxaparin Sodium 40 mg DAILY SC 12/07/24 10:00 12/14/24 10:04 40 MG Oseltamivir Phosphate 75 mg Q12HR PO 12/08/24 22:00 12/13/24 21:59 UNV Furosemide 40 mg BIDD IV 12/09/24 18:00 12/14/24 05:10 40 MG Albuterol 90 mcg Q4HR PRN IN 12/10/24 13:45 12/11/24 10:40 90 MCG Azithromycin 500 mg DAILY PO 12/11/24 10:00 12/14/24 10:05 500 MG Albuterol 2.5 mg Q6HR NEB 12/11/24 18:00 12/14/24 12:53 2.5 MG Ipratropium [place] 0.5 mg Q6HR NEB 12/11/24 18:00 12/14/24 12:53 0.5 MG Ceftriaxone Sodium 50 ml @ 100 mls/hr DAILY@09 IV 12/12/24 09:00 12/14/24 10:04 100 MLS/HR Pantoprazole Sodium 40 mg DAILY@0600 PO 12/13/24 06:00 12/14/24 05:09 40 MG Trazodone HCl 100 mg HS PO 12/12/24 22:00 12/13/24 22:32 100 MG Nystatin 5 ml QID MT 12/12/24 18:00 12/14/24 17:59 12/14/24 14:03 5 ML Acetaminophen/ Hydrocodone Bitart 1 tab Q8HP PRN PO 12/12/24 11:00 12/14/24 14:20 1 TAB Methylprednisolone Sodium Succinate 40 mg DAILY IV 12/13/24 10:00 12/14/24 10:04 40 MG Lidocaine HCl 10 ml Q4HP PRN MT 12/13/24 19:15 12/14/24 14:33 10 ML Laboratory Results Laboratory Tests 12/13/24 04:55 Urinalysis Test 12/06/24 13:15 Urine Color Light-yellow (Yellow) Urine Clarity Clear (Clear) Urine pH 6.5 (5.0-9.0) Urine Specific [place] 1.011 (1.001-1.035) Urine Protein Negative (Negative) Urine Ketones Negative (Negative) Urine Blood Negative /uL (Negative) Urine Nitrite Negative (Negative) Urine Bilirubin Negative (Negative) Urine Urobilinogen Normal mg/dL (Negative) Urine Leukocyte Esterase Negative /uL (Negative) Urine RBC 1 /hpf (0 - 4) Urine Microscopic WBC < 1 /HPF (0-5) Urine Squamous Epithelial Cells Few /hpf (<5) Urine Bacteria None seen /hpf (None Seen) Urine Glucose Normal mg/dL (Normal) Microbiology Microbiology Date/Time Source Procedure Growth Status 12/07/24 21:05 Blood Blood Culture - Final NO GROWTH AFTER 5 DAYS OF INCUBATION. Complete 12/06/24 20:20 Nose MRSA Screen - Final Complete 12/06/24 14:22 Sputum Expectorated Sputum Gram Stain - Final Complete 12/06/24 14:22 Sputum Expectorated Sputum Respiratory Culture - Final Complete 12/06/24 13:15 Voided Urine Urine Culture - Final Complete Assessment/Plan Assessment/Plan Acute on chronic hypercapnic respiratory failure COPD exacerbation likely due to COVID/influenza Viral pneumonia due to COVID and influenza Ghxyhftx-vs-vwwpqj emphysema bilateral Repeat COVID test is negative. We will DC the isolation. Patient received losartan for blood pressure and blood pressure went down. Therefore we will discontinue this. Otherwise continue rest of supportive care and treatment. If she remains stable consider discharge home in the next 24 hours. Discussed with the nurse Plan discussed with: Other My Orders Orders - TOYA BAUER MD Procedure Category Date Status Time D/C Isolation ORDERS 12/13/24 Transmitted 19:01 Pt Request For Service PT 12/13/24 Logged 19:01 Lidocaine 2% Viscous PHA 12/13/24 In Process (Xylocaine 2% Visco 19:15 Complete Blood Count LAB 12/15/24 Verified 04:00 Comprehensive LAB 12/15/24 Verified Metabolic Panel 04:00 Magnesium LAB 12/15/24 Verified 04:00 Date of Service: Dec 14, 2024 Billing Provider: TOYA BAUER MD Common Visit Codes: [id number] INP/OBS CARE(MOD) TOYA BAUER MD Dec 14, 2024 17:33
[2024-12-15] VITALS (17 sets, daily range): BP systolic 109–151; BP diastolic 63–93; PULSE 78–105; RESP 14–20; TEMP 97.6–98.6; O2SAT 95–100
[2024-12-15 07:14] LABS: Hematocrit 33.7 % (36.0-46.0); Hemoglobin 10.9 g/dL (12.2-16.2); Mean Corpuscular Hemoglobin 29.2 pg (28.0-32.0); Mean Corpuscular Volume 89.9 fL (80.0-100.0); Nucleated Red Blood Cells % 0.0 %
[2024-12-15 07:46] LABS: Alanine Aminotransferase 13 U/L (7-40); Albumin 3.6 g/dL (3.2-4.8); Alkaline Phosphatase 58 U/L (46-116); Anion Gap 6 (5-15); BUN/Creatinine Ratio 27.4 (10.0-20.0); Blood Urea Nitrogen 20 mg/dL (9-23); Calcium 9.1 mg/dL (8.7-10.4); Chloride 103 mmol/L (98-107); Glucose 98 mg/dL (74-106); Magnesium 2.2 mg/dL (1.6-2.6); Potassium 3.6 mmol/L (3.5-5.1); Sodium 141 mmol/L (136-145)
[2024-12-15 07:47] LABS: Bilirubin, Total 0.3 mg/dL (0.2-1.0)
[2024-12-15 07:50] LABS: Carbon Dioxide 32 mmol/L (20-31); Total Protein 5.6 g/dL (5.7-8.2)
[2024-12-15] MEDS: NYSTATIN (MOUTH-THROAT) 500,000 UNITS/5 ML SUSP MT ONE (10:30)
--- NOTE | 2024-12-15 10:31 | DVHPN2 ---
Progress Note Date Seen: Dec 15, 2024 Medical Necessity Reason Pt with a Central, PICC or Fol: No Subjective Patient reports: No new complaints Review of Systems: HEENT:Normal, CVS:Normal, RESPIRATORY:Normal, GI:Normal, :Normal, MSK:Normal, NEURO:Normal Objective vital signs Vital Sign Date Time Temp Pulse Resp B/P (MAP) Pulse Ox O2 Delivery O2 Flow Rate FiO2 12/15/24 08:59 97.7 85 18 151/85 (107) 97 97.7 12/15/24 06:10 Nasal Cannula* 2 28 Total Intake and Output 12/14/24 12/14/24 12/15/24 15:00 23:00 07:00 Intake Total 700 ml 800 ml Output Total 600 ml 400 ml Balance 100 ml 400 ml medications Current Medications Medications Dose Ordered Sig/Aida Route Start Time Stop Time Status Last Admin Dose Admin Oseltamivir Phosphate 75 mg Q12HR PO 12/08/24 22:00 12/13/24 21:59 UNV Albuterol 90 mcg Q4HR PRN IN 12/10/24 13:45 12/11/24 10:40 90 MCG Azithromycin 500 mg DAILY PO 12/11/24 10:00 12/15/24 09:57 500 MG Albuterol 2.5 mg Q6HR NEB 12/11/24 18:00 12/15/24 06:10 2.5 MG Ipratropium [place] 0.5 mg Q6HR NEB 12/11/24 18:00 12/15/24 06:10 0.5 MG Pantoprazole Sodium 40 mg DAILY@0600 PO 12/13/24 06:00 12/15/24 06:03 40 MG Trazodone HCl 100 mg HS PO 12/12/24 22:00 12/14/24 21:13 100 MG Acetaminophen/ Hydrocodone Bitart 1 tab Q8HP PRN PO 12/12/24 11:00 12/15/24 06:45 1 TAB Lidocaine HCl 10 ml Q4HP PRN MT 12/13/24 19:15 12/14/24 21:17 10 ML Prednisone 30 mg DAILY PO 12/16/24 10:00 UNV Examination: GENERAL:Normal, HEENT:Normal, NECK:Normal, LUNGS:Normal, LUNGS:Abnormal (ON OXYGEN), CVS:Normal, ABDOMEN:Normal, MSK:Normal, SKIN:Normal, NEURO:Normal, :Normal laboratory and microbiology Laboratory Tests 12/15/24 05:09 Test 12/15/24 05:09 Range/Units Serum Glucose 98 74-106 mg/dL Microbiology Date/Time Source Procedure Growth Status 12/07/24 21:05 Blood Blood Culture - Final NO GROWTH AFTER 5 DAYS OF INCUBATION. Complete 12/06/24 20:20 Nose MRSA Screen - Final Complete 12/06/24 14:22 Sputum Expectorated Sputum Gram Stain - Final Complete 12/06/24 14:22 Sputum Expectorated Sputum Respiratory Culture - Final Complete 12/06/24 13:15 Voided Urine Urine Culture - Final Complete Problem List/Assessment/Plan Problem List/Assessment/Plan Neurology Acute hypercapnic encephalopathy due to COPD exacerbation - mechanical ventilation and sedated - CPAP trial in the a.m. Respiratory Acute on chronic hypercapnic respiratory failure COPD exacerbation likely due to COVID/influenza Viral pneumonia due to COVID and influenza Vbhqvdqd-xb-xyntwt emphysema bilateral - ABG reviewed showed mixed respiratory acidosis with metabolic alkalosis - CT chest showed weohnium-lb-exwsvk bilateral emphysematous changes - on mechanical ventilation with a minimal settings peep 5, FiO2 30% - COVID and influenza positive - prednisone - oseltamivir - broad-spectrum antibiotic coverage - IV Lasix Cardiovascular Acute on chronic diastolic heart failure Bilateral pulmonary vascular congestion Severe pulmonary hypertension - echo showed LVEF 65% with moderately dilated RV and RA and RVSP of 57 mmHg indicating severe pulmonary hypertension - IV Lasix 40 bid Nephrology - kidney function normal drug abuse with cocaine oral thrush: nystatin, fluconazole PUD prophylaxis: Protonix DVT prophylaxis: Lovenox Intubated on 12/06 Right subclavian CVC inserted on 12/06 Evans's inserted on 12/06- dc Goals of care discussed with the patient's son Lenore. Code status: Full code- time spent 18 mins Plan discussed with: Patient My Orders My Orders Orders - KIRILL RAO MD Procedure Category Date Status Time Prednisone Tablet PHA 12/16/24 Logged 10:00 Discontinue Evans BRIA 12/15/24 In Process Catheter 10:19 D/C Tlc BRIA 12/15/24 In Process 10:19 Discontinue Tele BRIA 12/15/24 In Process 10:19 Transfer Orders XFER 12/15/24 Transmitted 10:19 Pt Request For Service PT 12/15/24 Logged 10:19 * Switchboard Mechanic CONS 12/15/24 Transmitted Consult Magic Mouthwash PHA 12/15/24 Verified Suspension (Majic 12:00 Dietary Evaluation Review Comments: 1) If patient remains NPO > 7 days, consider EN/TPN to meet at least 75% of estimated daily needs 2) If GI is preferred, consider Vital AF 1.2 @ 30 mL/hr goal rate as tolerated. Flush with 200 mL free H2O Q6H. TF regimen with provide 864 kcals, 54g Pro, and 1384 mL free H2O (including flushes) per 24 hrs. Goal rate will meet ~ 91% estimated daily energy needs and ~ 88% estimated daily protein needs. 3) Advance to regular diet when medically feasible, pending ST approval 4) Refer to outpatient RD for weight management 6) Follow-up with pulmonology 7) Continue to monitor I&O, labs, and skin integrity Expected Outcomes/Goals: 1) patient to receive nutritional support within 7 days of NPO status 2) labs to improve 3) diet to advance 4) f/u in 3-5 days Date of Service: Dec 15, 2024 Billing Provider: KIRILL RAO MD Common Visit Codes: [id number] INP/OBS CARE(HIGH) Secondary Visit Codes: [id number] CARE PLAN 30 MINUTES KIRILL RAO MD Dec 15, 2024 10:31
[2024-12-15] MEDS: MAGIC MOUTHWASH 55 ML SUSP MT SCH (12:00)
[2024-12-15] MEDS: NYSTATIN (MOUTH-THROAT) 500,000 UNITS/5 ML SUSP MT SCH (13:59)
[2024-12-15] MEDS: FLUCONAZOLE 200MG/100ML 100 ML IV ONE (14:04)
[2024-12-16] VITALS (10 sets, daily range): BP systolic 110–136; BP diastolic 66–97; PULSE 75–107; RESP 14–18; TEMP 97.9–98.2; O2SAT 95–100
--- NOTE | 2024-12-16 09:45 | DVHDS2 ---
Discharge Summary Date of Admission Dec 06, 2024 at 17:55 Date of Discharge: Dec 16, 2024 Labs/Diagnostic Data: Laboratory Results Test 12/15/24 05:09 12/13/24 16:32 12/11/24 07:08 12/10/24 17:15 White Blood Count 11.8 10^3/uL (4.4-10.8) Red Blood Count 3.75 10^6/uL (4.0-5.20) Hemoglobin 10.9 g/dL (12.2-16.2) Hematocrit 33.7 % (36.0-46.0) Mean Corpuscular Volume 89.9 fL (80.0-100.0) Mean Corpuscular Hemoglobin 29.2 pg (28.0-32.0) Mean Corpuscular Hemoglobin Concent 32.5 g/dL (32.0-36.0) Red Cell Distribution Width 14.6 % (11.8-14.3) Platelet Count 236 10^3/uL (140-450) Mean Platelet Volume 10.6 fL (6.9-10.8) Neutrophils (%) (Auto) 60.7 % (37.0-80.0) Lymphocytes (%) (Auto) 27.8 % (10.0-50.0) Monocytes (%) (Auto) 9.8 % (0.0-12.0) Eosinophils (%) (Auto) 1.6 % (0.0-7.0) Basophils (%) (Auto) 0.1 % (0.0-2.0) Neutrophils # (Auto) 7.1 10 ^3/uL (1.6-8.6) Lymphocytes # (Auto) 3.3 10 ^3/uL (0.4-5.4) Monocytes # (Auto) 1.1 10 ^3/uL (0-1.3) Eosinophils # (Auto) 0.2 10 ^3/uL (0-0.8) Basophils # (Auto) 0 10 ^3/uL (0-0.2) Nucleated Red Blood Cells 0.0 % Sodium Level 141 mmol/L (136-145) Potassium Level 3.6 mmol/L (3.5-5.1) Chloride Level 103 mmol/L (98-107) Carbon Dioxide Level 32 mmol/L (20-31) Anion Gap 6 (5-15) Blood Urea Nitrogen 20 mg/dL (9-23) Creatinine 0.73 mg/dL (0.550-1.02) Glomerular Filtration Rate Calc 91 mL/min (>90) BUN/Creatinine Ratio 27.4 (10.0-20.0) Serum Glucose 98 mg/dL (74-106) Calcium Level 9.1 mg/dL (8.7-10.4) Magnesium Level 2.2 mg/dL (1.6-2.6) Total Bilirubin 0.3 mg/dL (0.2-1.0) Aspartate Amino Transferase (AST) 11 U/L (13-40) Alanine Aminotransferase (ALT) 13 U/L (7-40) Alkaline Phosphatase 58 U/L (46-116) Total Protein 5.6 g/dL (5.7-8.2) Albumin 3.6 g/dL (3.2-4.8) Influenza Type A Antigen Negative (Negative) Influenza Type B Antigen Negative (Negative) Blood Gas Specimen Type Arterial Blood Gas Sample Site Left radial Blood Gas Patient Temperature 37.0 Arterial Blood Date Drawn Arterial Blood pH 7.551 (7.350-7.450) Arterial Blood Partial Pressure CO2 33.7 mmHg (32.0-45.0) Arterial Blood Partial Pressure O2 51.5 mmHg (83.0-108.0) Arterial Blood HCO3 28.9 mmol/L (21.0-28.0) Arterial Blood Oxygen Saturation 88.1 % (94.0-98.0) Arterial Blood Base Excess 6.6 mmol/L (-2.0-3.0) Arterial Blood Oxyhemoglobin 87.1 % (94.0-98.0) Arterial Blood Carboxyhemoglobin 0.8 % (0.5-1.5) Arterial Blood Methemoglobin 0.3 % (0.0-1.5) [place] Test Yes Blood Gas Total Hemoglobin 13.40 g/dL (12.0-16.0) Blood Gas Liter Flow 1.00 Blood Gas Modality Nasal cannula FiO2 % 24.0 Blood Gas Critical Value Read Back Yes Blood Gas Notified Whom tasha Worley md. Blood Gas Notified Time [id number] Blood Gas Notified By montserrat Deshpande rt. Vancomycin Level Trough 14.6 ug/mL (5-10) Test 12/10/24 14:45 12/10/24 13:00 12/10/24 10:46 12/10/24 07:13 SARS-CoV-2 Antigen (Rapid) Negative (NEGATIVE) Random Vancomycin Level 17.8 ug/mL (5-10) Blood Gas Pressure Support 8 Blood Gas PEEP or CPAP 5.0 Blood Gas Set Respiration Rate 20.0 Blood Gas Tidal Volume 400.0 Test 12/09/24 03:22 12/06/24 19:05 12/06/24 18:26 12/06/24 14:38 Hemoglobin A1c 5.4 % A1C (<5.7) Blood Gas Spontaneous Rate 20 Blood Gas Spontaneous Tidal Volume 362 Blood Gas Inspiratory Pressure 18.0 Bl Gas Inspiratory/Expiratory Ratio 1:2 Troponin I High Sensitivity 53 ng/L (</=34) D-Dimer, Quantitative 0.53 mg/L FEU (0.0-0.49) B-Type Natriuretic Peptide 22.55 pg/mL (0-100) Test 12/06/24 13:15 Urine Color Light-yellow (Yellow) Urine Clarity Clear (Clear) Urine pH 6.5 (5.0-9.0) Urine Specific [place] 1.011 (1.001-1.035) Urine Protein Negative (Negative) Urine Ketones Negative (Negative) Urine Blood Negative /uL (Negative) Urine Nitrite Negative (Negative) Urine Bilirubin Negative (Negative) Urine Urobilinogen Normal mg/dL (Negative) Urine Leukocyte Esterase Negative /uL (Negative) Urine RBC 1 /hpf (0 - 4) Urine Microscopic WBC < 1 /HPF (0-5) Urine Squamous Epithelial Cells Few /hpf (<5) Urine Bacteria None seen /hpf (None Seen) Urine Glucose Normal mg/dL (Normal) Urine Opiates Screen Neg (NEGATIVE) Urine Fentanyl Screen Neg (NEGATIVE) Urine Barbiturates Screen Neg (NEGATIVE) Urine Phencyclidine Screen Neg (NEGATIVE) Urine Amphetamines Screen Neg (NEGATIVE) Urine Benzodiazepines Screen Neg (NEGATIVE) Urine Cocaine Screen Pos (NEGATIVE) Urine Cannabinoids Screen Neg (NEGATIVE) Other Laboratory Tests 12/15/24 05:09 Brief Hx & Hospital Course: see dictated note Condition at Discharge: Fair Final Diagnosis/Problems List resp failure Discharge Disposition: Home Discharge Instruct/Medications Diet: Cardiac 2g Na,low cholest Activity: No Restrictions, As Tolerated Follow Up/Referral: fu with pcp in 1 wk Medications: resume home meds script to pharmacy Scheduled Cholecalciferol (Vitamin D3), 1 TAB PO DAILY, (Reported) Jnnggndomri-Tyvosuqhpvps-Lcpww (Trelegy Ellipta 100-62.5-25 Mcg/INH), 1 PUFF IN DAILY, (Reported) Losartan Potassium (Losartan Potassium), 1 TAB PO DAILY, (Reported) Metformin Hydrochloride (Metformin Hcl), 1 TAB PO BID Pantoprazole Sodium Sesquihydr (Pantoprazole Sodium), 40 MG PO DAILY Prednisone (Prednisone), 20 MG PO DAILY Prednisone (Prednisone), 20 MG PO half daily Simvastatin (Simvastatin), 1 TAB PO DAILY, (Reported) Scheduled PRN Albuterol Sulfate (Albuterol Sulfate Hfa), 1 PUFF IN Q4-6HR PRN for WHEEZING, (Reported) Prednisone (Prednisone), 20 MG PO as directed PRN Trazodone Hcl (Trazodone Hcl), 1 TAB PO HS PRN for FOR INSOMNIA, (Reported) Discharge Statement: "Patient was advised to return to the ER or call 911 if any headaches, dizziness, shortness of breath, chest pain, abdominal pain, bleeding, fevers, or worsening of medical condition. Patient was counseled about treatment plan, medications, possible side effects, patientverbalized understanding. All questions were answered to the best of my ability. This discharge took greater then 30 minutes in planning, reviewing documentation, counseling the patient, and discussing with other team members." ASSESSMENT ASSESSMENT Assessment resp failure Date of Service: Dec 16, 2024 Billing Provider: KIRILL RAO MD Common Visit Codes: [id number] DISCH DAY >30min KIRILL RAO MD Dec 16, 2024 09:45
[2024-12-16] MEDS ORDERED: FLUC100T34 PO (09:48)
[2024-12-16] MEDS ORDERED: PRED20TA2 PO (09:48)
[2024-12-16] MEDS ORDERED: NYS5LQ MT (09:48)
--- NOTE | 2024-12-16 10:03 | DVHDS ---
DATE OF DISCHARGE: 12/16/2024 HISTORY OF PRESENT ILLNESS: The patient is a 64-year-old lady admitted with a history of shortness of breath requiring CPAP and subsequently was intubated. The patient has a history of COPD, hypertension, diabetes, and drug abuse. HOSPITAL COURSE: The patient had an echocardiogram done that showed an ejection fraction of 65% with severe pulmonary hypertension. The patient had a CT angiography that showed no pulmonary embolism but severe emphysema with multiple irregular densities suggestive of possible chronic scarring. It was recommended to get a PET CT as outpatient. The patient had sputum and blood cultures that were negative. Her tox screen was positive for cocaine. The patient was eventually successfully extubated. The patient will now be discharged home to resume her home medications as well as to be on prednisone 20 mg daily for 5 days, nystatin swish and swallow q.i.d. for 5 days and fluconazole 100 mg daily for 5 days. Also states that the patient was positive for COVID-19 as well as influenza. FINAL DIAGNOSES: * Acute respiratory failure status post intubation, mechanical ventilation. * Encephalopathy, metabolic. * COVID-19 and influenza positive with sepsis. * COPD with exacerbation. * Acute on chronic diastolic heart failure. * Severe pulmonary hypertension. * Drug abuse with cocaine. * Oral thrush. * Questionable diabetes mellitus. Time spent in discharge planning and review of plan with the patient and nursing was 39 minutes. MD TAMMY Austin/FIDEL TID: [id number] RECEIPT: [id number]
[2024-12-16] MEDS: predniSONE 20 MG TAB PO SCH (10:53)
[2024-12-16] MEDS: FLUCONAZOLE 100 MG TAB PO SCH (10:53)
== END 2024-12-16 12:48 | disposition home or self-care (01) | DRG 871 ==
LOC: EDUNIT# 12:54 → ER 12:54 → EDBD 12:54 → OVERFLOW 17:55 → ICU WEST 20:13 → TELE-CENTR 12-12 18:34 → CENTRAL 12-15 19:45
PROVIDERS: ADMIT Internal Medicine; ATTEND Internal Medicine
PROC: 5A1945Z Respiratory Ventilation, 24-96 Consecutive Hours (ICD-10-PCS; principal; 2024-12-06)
PROC: 0BH17EZ Insertion of Endotracheal Airway into Trachea, Via Natural or Artificial Opening (ICD-10-PCS; 2024-12-06)
PROC: 02HV33Z Insertion of Infusion Device into Superior Vena Cava, Percutaneous Approach (ICD-10-PCS; 2024-12-06)
PROC: 5A09357 Assistance with Respiratory Ventilation, Less than 24 Consecutive Hours, Continuous Positive Airway Pressure (ICD-10-PCS; 2024-12-06)
DX: A41.89 Other specified sepsis (principal); G93.41 Metabolic encephalopathy; I21.4 Non-ST elevation (NSTEMI) myocardial infarction; R65.21 Severe sepsis with septic shock; J96.22 Acute and chronic respiratory failure with hypercapnia; U07.1 COVID-19; J12.82 Pneumonia due to coronavirus disease 2019; I50.33 Acute on chronic diastolic (congestive) heart failure; J10.08 Influenza due to other identified influenza virus with other specified pneumonia; J96.21 Acute and chronic respiratory failure with hypoxia; J44.1 Chronic obstructive pulmonary disease with (acute) exacerbation; J44.0 Chronic obstructive pulmonary disease with (acute) lower respiratory infection; B37.0 Candidal stomatitis; I11.0 Hypertensive heart disease with heart failure; J43.2 Centrilobular emphysema; I27.20 Pulmonary hypertension, unspecified; F14.10 Cocaine abuse, uncomplicated; E11.9 Type 2 diabetes mellitus without complications; Z79.4 Long term (current) use of insulin; Z88.8 Allergy status to other drugs, medicaments and biological substances; Z88.6 Allergy status to analgesic agent; Z79.02 Long term (current) use of antithrombotics/antiplatelets; Z79.899 Other long term (current) drug therapy
CPT/HCPCS: 31500; 36415; 36556; 36600; 71045; 71275; 80048; 80053; 80202; 80307; 81001; 82565; 82805; 83036; 83735; 83880; 84132; 84484; 85025; 85379; 87040; 87070; 87081; 87086; 87205; 87426; 87804; 92610; 93005; 93306; 94002; 94003; 94640; 96365; 96375; 97110; 97163; 97530; 99291; G0378; G9035; J0330; J1100; J1450; J2470; J2543; J2704; J3480; J7060

== ENCOUNTER 2025-01-15 03:12 | Inpatient (IN) | payer OTHER, MEDICAID ==
[2025-01-15] VITALS (35 sets, daily range): BP systolic 79–228; BP diastolic 42–104; PULSE 62–113; RESP 14–30; TEMP 96.4–99.3; O2SAT 92–100
[~2025-01-15] VITALS: Ht 157.5 cm; Wt 54.0 kg
[~2025-01-15 03:12] MED LIST changes: +FLUC100T34 PO; +NYS5LQ MT; +PRED20TA2 PO
--- NOTE | 2025-01-15 03:25 | ECG ---
[facility] Test Date: 2025-01-15 Test Time: 03:20:57 Pat Name: CASEY MORAN Department: [facility] ED Patient ID: [facility]-[id number] Room: 0209T Gender: F Curator Of Collections: ARIELLA : 1960 Requested By: SKIP ARAGON Order Number: [id number] Reading MD: Alek Peterson Measurements Intervals [place] Rate: 114 P: 77 OR: 134 QRS: 68 QRSD: 91 T: 0 QT: 347 QTc: 478 Interpretive Statements Sinus tachycardia Consider right atrial enlargement Consider left ventricular hypertrophy Abnrm T, consider ischemia, anterolateral lds Baseline wander in lead(s) V2,V3,V4,V5 Electronically Signed On 01-22-2025 21:40:28 PDT by Alek Peterson Please click the below link to view image of tracing.
--- NOTE | 2025-01-15 03:43 | ED.PDOC ---
SOB-HPI HPI Comments This is a 64-year-old female with history of hypertension, diabetes mellitus, COPD on home oxygen, history of recent intubation for COPD exacerbation and COVID/influenza pneumonia who presented to the ER with a chief complaint of shortness of breaths for the past 1 day. Per EMS, patient lives with family who reported with the patient has been experiencing shortness of breaths, patient reported last use cocaine was 2 days back, EMS gave magnesium, nebulized treatment with albuterol which did not improve with the patient condition and patient was tachypneic on arrival. Patient was immediately put on BiPAP which did not decrease her work of breathing, patient was tachypneic greater than 35 per minute but was alert. Patient was intubated for respiratory insufficiency. 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 Notes Information Source: Emergency Med Personnel Mode of Arrival: EMS Past Medical History PAST MEDICAL HISTORY: COPD Past Medical History (Other): Hypertension, COPD, diabetes Surgical History: Denies all surgeries PPAP COORDINATOR History: Denies all PPAP COORDINATOR Hx Family History Family History: Reviewed,noncontributory to illness Social History Smoker: Non-Smoker Alcohol: Denies ETOH Use Drugs: Denies Drug Use Lives In: Home Constitutional: reports: fatigue, weakness EENTM: denies: blurred vision, double vision, ear bleeding, ear discharge, ear drainage, ear pain, ear ringing, eye pain, eye redness, hearing loss, mouth pain, mouth swelling, nasal discharge, nose bleeding, nose congestion, nose pain, photophobia, tearing, throat pain, throat swelling, voice changes, others Respiratory: reports: orthopnea, SOB at rest, shortness of breath, SOB with excertion, others Cardiovascular: denies: chest pain, dizzy spells, diaphoresis, Dyspnea on exertion, edema, irregular heart beat, left arm pain, lightheadedness, palpitations, PND, syncope, others Gastrointestinal: denies: abdomen distended, abdominal pain, blood streaked bowels, constipated, diarrhea, dysphagia, difficulty swallowing, hematemesis, melena, nausea, poor appetite, poor fluid intake, rectal bleeding, rectal pain, vomiting, others Genitourinary: denies: abnormal vagina bleeding, burning, dyspareunia, dysuria, flank pain, frequency, hematuria, incontinence, pain, , vagina discharge, urgency, others Neurological: denies: dizziness, fainting, headache, left sided numbness, left sided weakness, numbness, paresthesia, pre-existing deficit, right sided numb ness, right sided weakness, seizure, speech problems, tingling, tremors, weakness, others Musculoskeletal: denies: back pain, gout, joint pain, joint swelling, muscle pain, muscle stiffness, neck pain, others Integumetry: denies: bruises, change in color, change in hair/nails, dryness, laceration, lesions, lumps, rash, wounds, others Allergic/Immunocompromised: denies: Difficulty Healing, Frequent Infections, Hives, Itching, others Hematologic/Lymphatic: denies: anemia, blood clots, easy bleeding, easy bruising, swollen glands, others Endocrine: denies: excessive hunger, excessive sweating, excessive thirst, excessive urination, flushing, intolerance to cold, intolerance to heat, unexplained weight gain, unexplained weight loss, others Psychiatric: denies: anxiety, bipolar disorder, depression, hopeless, panic disorder, schizophrenia, sleepless, suicidal, others Physical Exam General Appearance: No Apparent Distress, Normal HEENT: Normal ENT Inspection, Pharynx Normal, TMs Normal Neck: Full Range of Motion, Non-Tender, Normal, Normal Inspection Respiratory: Accessory Muscle Use, Chest Non-Tender, Decreased Breath Sounds, Lungs Clear, Respiratory Distress Cardiovascular: No Edema, No JVD, No Murmur, No Gallop, Normal Peripheral Pulses, Regular Rate/Rhythm, Tachycardia Breast Exam: Deferred Gastrointestinal: No Organomegaly, Non Tender, No Pulsatile Mass, Normal Bowel Sounds, Soft Genitalia: Deferred Pelvic: Deferred Rectal: Deferred Extremities: No calf tenderness, Normal capillary refill, Normal inspection, N ormal range of motion, Non-tender, No pedal edema Musculoskeletal : Apperance: Normal Neurologic: Alert, medical office asst II-XII nml as Tested, No Motor Deficits, Normal Affect, Normal Mood, No Sensory Deficits Cerebellar Function: Normal Reflexes: Normal Skin: Dry, Normal Color, Warm Lymphatic: No Adenopathy EKG EKG : Comments Sinus tachycardia with T-wave inversion in lateral leads Was a procedure done? Was a procedure done?: No Differential Dx Differential Diagnosis: CHF, COPD, Pneumonia, URI X-Ray, Labs, Meds, VS Vital Signs Date Time Temp Pulse Resp B/P (MAP) Pulse Ox O2 Delivery O2 Flow Rate FiO2 01/15/25 06:13 110 24 228/104 (145) 100 100 01/15/25 06:10 228/104 01/15/25 06:05 211/89 01/15/25 06:00 103 24 230/99 (142) 100 01/15/25 05:55 210/89 01/15/25 05:45 102 24 213/76 (121) 100 01/15/25 05:30 98 24 225/93 (137) 100 01/15/25 05:25 236/124 01/15/25 05:15 112 24 242/111 (154) 100 01/15/25 05:05 247/125 01/15/25 05:05 247/125 01/15/25 05:00 112 24 247/123 (164) 100 01/15/25 05:00 113 24 100 100 01/15/25 04:51 114 01/15/25 04:45 114 24 240/133 (168) 100 01/15/25 04:44 158/32 01/15/25 04:00 98 31 163/85 (111) 99 01/15/25 03:45 104 163/85 98 Facial BiPAP Mask 40 01/15/25 03:20 98.7 104 30 163/85 (111) 100 98.7 01/15/25 03:20 104 30 100 Simple Mask* 8 60 01/15/25 03:20 114 01/15/25 03:12 97.8 109 32 189/80 100 97.8 Lab Test 01/15/25 05:50 01/15/25 04:20 01/15/25 04:15 01/15/25 03:34 Range/Units Urine Color Pending Urine Clarity Pending Urine pH Pending Urine Specific [place] Pending Urine Protein Pending Urine Ketones Pending Urine Blood Pending Urine Nitrite Pending Urine Bilirubin Pending Urine Urobilinogen Pending Urine Leukocyte Esterase Pending Urine RBC Pending Urine Microscopic WBC Pending Urine Squamous Epithelial Cells Pending Urine Bacteria Pending Urine Glucose Pending Urine Opiates Screen Pos NEGATIVE Urine Fentanyl Screen Neg NEGATIVE Urine Barbiturates Screen Neg NEGATIVE Urine Phencyclidine Screen Neg NEGATIVE Urine Amphetamines Screen Neg NEGATIVE Urine Benzodiazepines Screen Neg NEGATIVE Urine Cocaine Screen Pos NEGATIVE Urine Cannabinoids Screen Neg NEGATIVE Troponin I High Sensitivity 10 11 </=34 ng/L Influenza Type A Antigen Positive Negative Influenza Type B Antigen Positive Negative SARS-CoV-2 Antigen (Rapid) Positive NEGATIVE White Blood Count 9.6 4.4-10.8 10^3/uL Red Blood Count 3.70 L 4.0-5.20 10^6/uL Hemoglobin 11.2 L 12.2-16.2 g/dL Hematocrit 34.7 L 36.0-46.0 % Mean Corpuscular Volume 93.8 80.0-100.0 fL Mean Corpuscular Hemoglobin 30.3 28.0-32.0 pg Mean Corpuscular Hemoglobin Concent 32.3 32.0-36.0 g/dL Red Cell Distribution Width 16.6 H 11.8-14.3 % Platelet Count 364 140-450 10^3/uL Mean Platelet Volume 9.1 6.9-10.8 fL Neutrophils (%) (Auto) 57.0 37.0-80.0 % Lymphocytes (%) (Auto) 24.1 10.0-50.0 % Monocytes (%) (Auto) 10.9 0.0-12.0 % Eosinophils (%) (Auto) 6.5 0.0-7.0 % Basophils (%) (Auto) 1.5 0.0-2.0 % Neutrophils # (Auto) 5.5 1.6-8.6 10 ^3/uL Lymphocytes # (Auto) 2.3 0.4-5.4 10 ^3/uL Monocytes # (Auto) 1.0 0-1.3 10 ^3/uL Eosinophils # (Auto) 0.6 0-0.8 10 ^3/uL Basophils # (Auto) 0.1 0-0.2 10 ^3/uL Nucleated Red Blood Cells 0.1 % Sodium Level 142 136-145 mmol/L Potassium Level 4.3 3.5-5.1 mmol/L Chloride Level 108 H 98-107 mmol/L Carbon Dioxide Level 28 20-31 mmol/L Anion Gap 6 5-15 Blood Urea Nitrogen 8 L 9-23 mg/dL Creatinine 0.58 0.550-1.02 mg/dL Glomerular Filtration Rate Calc 100 >90 mL/min BUN/Creatinine Ratio 13.8 10.0-20.0 Serum Glucose 154 H 74-106 mg/dL Lactic Acid Level 0.9 0.4-2.0 mmol/L Calcium Level 9.1 8.7-10.4 mg/dL Total Bilirubin 0.4 0.2-1.0 mg/dL Aspartate Amino Transferase (AST) 22 13-40 U/L Alanine Aminotransferase (ALT) 10 7-40 U/L Alkaline Phosphatase 75 46-116 U/L B-Type Natriuretic Peptide 45.60 0-100 pg/mL Total Protein 6.8 5.7-8.2 g/dL Albumin 4.1 3.2-4.8 g/dL Plasma/Serum Blood Alcohol < 3.0 <10 mg/dL Current Medications Medications (Trade) Dose Ordered Sig/Aida Route Start Time Stop Time Status Last Admin Levalbuterol HCl (Xopenex Medneb) 1.25 mg Q6HR NEB 01/15/25 03:45 01/15/25 06:13 Ipratropium [place] (Atrovent Medneb) 0.5 mg ONCE ONCE NEB 01/15/25 03:45 01/15/25 03:46 DC 01/15/25 06:12 Methylprednisolone Sodium Succinate (Solu Medrol) 62.5 mg ONCE ONCE IV 01/15/25 03:45 01/15/25 03:46 DC 01/15/25 03:45 Piperacillin Sod/ Tazobactam Sod 100 ml @ 200 mls/hr ONCE ONCE IV 01/15/25 03:45 01/15/25 04:14 DC 01/15/25 04:08 Rocuronium [place] 100 mg ONCE ONCE IV 01/15/25 04:45 01/15/25 04:46 DC 01/15/25 04:44 Etomidate 20 mg ONCE ONCE IV 01/15/25 04:45 01/15/25 04:46 DC 01/15/25 04:44 Midazolam HCl 50 ml @ 1 mls/hr Q24H IV 01/15/25 04:45 01/15/25 05:05 Fentanyl Citrate 250 ml @ 2.5 mls/hr Q24H IV 01/15/25 04:45 01/15/25 05:05 Time of 1ST Reevaluation: 03:30 Reevaluation 1ST: Unchanged Time of 2ND Reevaluation: 03:40 Reevaluation 2ND: Worsened Patient Education/Counseling: Diagnosis, Treatment Family Education/Counseling: No Family Present SEPSIS Sepsis Screen Date sepsis recognized/suspect: Jan 15, 2025 Time Sepsis recognized/suspect: 333 Recent Procedure: No On Antibiotic Therapy: No Respiratory Rate >20: Yes Heart Rate >90: Yes Temp<36 C (96.8 F) or >38.3 C: No SBP <90 or MAP <65 mmHG: No New Acute Mental Status Change: No Is the patient on CPAP, BIPAP,: No Physician Orders Urinalysis (01/15/25 03:32) Chest Xray 1 View (01/15/25 03:32) BIPAP (01/15/25 03:32) Levalbuterol Hcl (Xopenex Medneb) (01/15/25 03:45) Piperacillin-Tazob 3.375gm (Zosyn 3.375g (01/15/25 12:00) Troponin-I Hs (01/15/25 06:45) Blood Culture (01/15/25 03:55) Abg W/ Co-Ox (01/15/25 04:06) Midazolam Drip 50 Mg/50ml (Versed Drip 5 (01/15/25 04:45) Fentanyl Drip 2500mcg/250mlns (01/15/25 04:45) Rass Sedation Scale Q1HR (01/15/25 04:44) Chest Portable (01/15/25 04:44) Respiratory Culture W/ Gs (01/15/25 04:55) Vent Ip Init (01/15/25 04:57) Communication Order (01/15/25 05:03) Abg W/ Co-Ox (01/15/25 06:00) Communication Order (01/15/25 05:39) Evans Catheters (01/15/25 ) Place Og Tube (01/15/25 05:51) Nicardipine 20 Mg/200 Ml (Cardene Iv) (01/15/25 06:15) Communication Order (01/15/25 06:12) Remdesivir Per Pharmacy (01/15/25 06:15) Oseltamivir 75mg Capsule (Tamiflu 75mg C (01/15/25 10:00) Oseltamivir 75mg Capsule (Tamiflu 75mg C (01/15/25 06:15) Vancomycin (01/15/25 06:15) Methylprednisolone Sod Succ (Solu Medrol (01/15/25 14:00) Ipratropium Medneb (Atrovent Medneb) (01/15/25 12:00) Enoxaparin Sodium (Lovenox) (01/15/25 10:00) Admit (01/15/25 06:15) Code Status (01/15/25 06:15) Complete Blood Count (01/16/25 04:00) Comprehensive Metabolic Panel (01/16/25 04:00) Npo (Nothing By Mouth) Diet (01/15/25 Breakfast) Echo 2d Mode Cardiac Dop (01/15/25 06:15) Oxygen By Nasal Cannula (01/15/25 06:15) Stat Ekg For Chest Pain (01/15/25 06:15) Notify Of Changes From Base (01/15/25 06:15) Shape Hand For 24 Hours (01/15/25 06:15) Emergency Dysrhythmia Protocol (01/15/25 06:15) Rhythm Strips Once Every Shift (01/15/25 06:15) Propofol Drip Target -3 Rass (01/15/25 06:30) Vital Signs Date Time Temp Pulse Resp B/P (MAP) Pulse Ox O2 Delivery O2 Flow Rate FiO2 01/15/25 06:13 110 24 228/104 (145) 100 100 01/15/25 06:10 228/104 01/15/25 06:05 211/89 01/15/25 06:00 103 24 230/99 (142) 100 01/15/25 05:55 210/89 01/15/25 05:45 102 24 213/76 (121) 100 01/15/25 05:30 98 24 225/93 (137) 100 01/15/25 05:25 236/124 01/15/25 05:15 112 24 242/111 (154) 100 01/15/25 05:05 247/125 01/15/25 05:05 247/125 01/15/25 05:00 112 24 247/123 (164) 100 01/15/25 05:00 113 24 100 100 01/15/25 04:51 114 01/15/25 04:45 114 24 240/133 (168) 100 01/15/25 04:44 158/32 01/15/25 04:00 98 31 163/85 (111) 99 01/15/25 03:45 104 163/85 98 Facial BiPAP Mask 40 01/15/25 03:20 98.7 104 30 163/85 (111) 100 98.7 01/15/25 03:20 104 30 100 Simple Mask* 8 60 01/15/25 03:20 114 01/15/25 03:12 97.8 109 32 189/80 100 97.8 Laboratory Tests Test 01/15/25 03:34 Lactic Acid Level 0.9 mmol/L (0.4-2.0) White Blood Count 9.6 10^3/uL (4.4-10.8) Medications Medications Dose Ordered Sig/Aida Route Start Time Stop Time Status Last Admin Dose Admin Etomidate 20 mg ONCE ONCE IV 01/15/25 04:45 01/15/25 04:46 DC 01/15/25 04:44 Fentanyl Citrate 250 ml @ 2.5 mls/hr Q24H IV 01/15/25 04:45 01/15/25 05:05 Ipratropium [place] 0.5 mg ONCE ONCE NEB 01/15/25 03:45 01/15/25 03:46 DC 01/15/25 06:12 Ipratropium [place] 0.5 mg STK-MED ONCE .ROUTE 01/15/25 03:41 01/15/25 03:36 DC 01/15/25 04:07 Levalbuterol HCl 1.25 mg Q6HR NEB 01/15/25 03:45 01/15/25 06:13 Methylprednisolone Sodium Succinate 62.5 mg ONCE ONCE IV 01/15/25 03:45 01/15/25 03:46 DC 01/15/25 03:45 Midazolam HCl 50 ml @ 1 mls/hr Q24H IV 01/15/25 04:45 01/15/25 05:05 Piperacillin Sod/ Tazobactam Sod 100 ml @ 200 mls/hr ONCE ONCE IV 01/15/25 03:45 01/15/25 04:14 DC 01/15/25 04:08 Rocuronium [place] 100 mg ONCE ONCE IV 01/15/25 04:45 01/15/25 04:46 DC 01/15/25 04:44 Departure 1 Departure Time of Disposition: 05:00 Impression: Primary Impression: Acute exacerbation of chronic obstructive pulmonary disease (COPD) Additional Impressions: Acute respiratory failure Acute respiratory failure with hypoxia Disposition: 30 STILL A PATIENT Condition: Critical Additional Instructions: IV Zosyn, methylprednisolone 60 mg IV, nebulized treatment,, CBC/CMP/chest x- ray/COVID/flu/blood culture ordered. Critical Care Note Critical Care Time?: Yes (55 min-critical care time only) Stability Stability form required: No Heart Score Heart Score: Heart Score Response (Comments) Value History Moderate Suspicious 1 EKG Repolarization Disturb 1 Age 45-64 1 Risk Factors >3 or Hx ASHD 2 Troponin Normal limit 0 Total 5 SKIP ARAGON RESIDENT Jan 15, 2025 03:43
[2025-01-15] MEDS: methylPREDNISolone SOD SUCC 125 MG/2 ML VL IV ONE (03:45)
[2025-01-15 03:51] LABS: Hematocrit 34.7 % (36.0-46.0); Hemoglobin 11.2 g/dL (12.2-16.2); Mean Corpuscular Hemoglobin 30.3 pg (28.0-32.0); Mean Corpuscular Volume 93.8 fL (80.0-100.0); Nucleated Red Blood Cells % 0.1 %
[2025-01-15] MEDS: LEVALBUTEROL HCL 1.25 MG/3 ML NEB NEB SCH (04:07)
[2025-01-15] MEDS: IPRATROPIUM BROM 0.5 MG/2.5ML INH SOL ONE (04:07)
[2025-01-15 04:08] LABS: Alanine Aminotransferase 10 U/L (7-40); Albumin 4.1 g/dL (3.2-4.8); Alkaline Phosphatase 75 U/L (46-116); Anion Gap 6 (5-15); BUN/Creatinine Ratio 13.8 (10.0-20.0); Calcium 9.1 mg/dL (8.7-10.4); Carbon Dioxide 28 mmol/L (20-31); Potassium 4.3 mmol/L (3.5-5.1); Sodium 142 mmol/L (136-145); Total Protein 6.8 g/dL (5.7-8.2)
[2025-01-15] MEDS: PIPERACILLIN-TAZOB 3.375GM 100 ML IV ONE (04:08)
[2025-01-15 04:11] LABS: Bilirubin, Total 0.4 mg/dL (0.2-1.0)
[2025-01-15 04:40] LABS: Blood Urea Nitrogen 8 mg/dL (9-23); Chloride 108 mmol/L (98-107); Glucose 154 mg/dL (74-106)
--- NOTE | 2025-01-15 04:41 | DVH ---
CHEST RADIOGRAPH Indication: sob Technique: Single frontal view of the chest was obtained COMPARISON: XY CHEST XRAY 1 VIEW on DOS: 12/12/24, XY CHEST XRAY 1 VIEW on DOS: 12/11/24, XY CHEST XRAY 1 VIEW on DOS: 12/10/24, XY CHEST XRAY 1 VIEW on DOS: 12/09/24, XY CHEST PORTABLE on DOS: 12/08/24 FINDINGS: Lines and Tubes: None Lungs: Chronic appearing bilateral interstitial pulmonary markings. No evidence of focal consolidatio n. Pleura: No effusion. No pneumothorax. Cardiomediastinal contours: Unremarkable Bones: Unremarkable IMPRESSION: 1. Chronic appearing bilateral interstitial pulmonary markings. 2. No evidence of focal consolidation.
[2025-01-15] MEDS: ROCURONIUM 10MG/ML 10ML VIAL IV ONE ×2 (04:42→04:44)
[2025-01-15] MEDS: ETOMIDATE (2MG/ML) 20ML VIAL IV ONE ×2 (04:42→04:44)
[2025-01-15] MEDS: MIDAZOLAM DRIP 50 mg/50mL 50 ML IV ONE (04:58)
[2025-01-15] MEDS: fentaNYL Drip 2500mCg/250mlNS 250 ML IV ONE (04:58)
[2025-01-15] MEDS: MIDAZOLAM DRIP 50 mg/50mL 50 ML IV SCH (05:05)
[2025-01-15] MEDS: fentaNYL Drip 2500mCg/250mlNS 250 ML IV SCH (05:05)
[2025-01-15 05:10] LABS: COVID19 ANTIGEN SOFIA FIA POSITIVE (NEGATIVE)
[2025-01-15] MEDS: IPRATROPIUM BROM 0.5 MG/2.5ML INH SOL NEB ONE (06:12)
[2025-01-15] MEDS: OSELTAMIVIR 75 MG CAP PO ONE (06:15)
[2025-01-15] MEDS ORDERED: VANCOMYCIN PER PHARMACY 0 MG IV SCH (06:15)
[2025-01-15] MEDS ORDERED: REMDESIVIR PER PHARMACY 0 ML IV SCH (06:15)
[2025-01-15 06:21] LABS: Opiate Scree,Urine Pos (NEGATIVE)
[2025-01-15 06:24] LABS: Amphetamine Screen, Urine Neg (NEGATIVE); Barbiturate Scree,Urine Neg (NEGATIVE); Benzodiazephine Screen, Urine Neg (NEGATIVE); Cannabinoid Screen, Urine Neg (NEGATIVE); Cocaine Screen, Urine Pos (NEGATIVE); Phencyclidine Screen, Urine Neg (NEGATIVE)
[2025-01-15] MEDS: PROPOFOL 100 ML IV ONE (06:28)
--- NOTE | 2025-01-15 06:29 | DVHHPRES ---
History of Present Illness Resident Creating Document: HESHAM VAZQUEZ RESIDENT History of Present Illness Adriane Ly is a 64-year-old female patient who presents to ED via EMS due to progressive dyspnea from Functional Class II to Functional Class IV for the past day before her admission. Patient presented acute respiratory failure requiring endotracheal intubation in ED. Obtain past medical history and other relevant history from EM are in previous discharge summaries. Could not obtain review of systems due to clinical status. Past medical history: hypertension, diabetes mellitus, COPD on home oxyge 3 L/minn, history of recent intubation for COPD exacerbation and COVID/influenza pneumonia, moderately-severe pulmonary hypertension (last echocardiogram on 11/2024 which showed LVEF 65%, moderate dilated RV and RA, moderately severe pulmonary hypertension with RVSP 57 mmHg) Surgical history: Cervical spine surgery Family history: Noncontributory Social history: Lives with family in [place] (sister is the next of kin, Larisa). Ex tobacco abuse (30 pack-year history of smoking) quit approximately one year ago. Currently uses cocaine (last use two days ago). Denies current tobacco, alcohol and other drug abuse. Allergies: Amitriptyline, fluoxetine, gabapentin, NSAIDs Home medication: Patient seen and examined at bedside. Currently under sedation due to mechanical assisted ventilation. Past Medical History Per HPI Past Surgical History Per HPI Family History Per HPI Past Social History Per HPI Review of Systems Review of Systems Per HPI Allergies: Coded Allergies: Amitriptyline (Verified Allergy, Unknown, 08/22/22) Fluoxetine (Verified Allergy, Unknown, 11/06/17) Gabapentin (Verified Allergy, Unknown, 11/06/17) NSAIDs (Verified Allergy, Unknown, 11/06/17) Medications Current Medications Medications Dose Ordered Sig/Aida Route Start Time Stop Time Status Last Admin Dose Admin Levalbuterol HCl 1.25 mg Q6HR NEB 01/15/25 03:45 01/15/25 06:13 1.25 MG Piperacillin Sod/ Tazobactam Sod 100 ml @ 25 mls/hr Q8H IV 01/15/25 12:00 Midazolam HCl 50 ml @ 1 mls/hr Q24H IV 01/15/25 04:45 01/15/25 05:05 1 MLS/HR Fentanyl Citrate 250 ml @ 2.5 mls/hr Q24H IV 01/15/25 04:45 01/15/25 05:05 5 MLS/HR Nicardipine/ Sodium Chloride 200 ml @ 50 mls/hr Q4H IV 01/15/25 06:15 Remdesivir 0 ml @ 0 mls/hr PER PHARMACY IV 01/15/25 06:15 01/19/25 06:16 UNV Oseltamivir Phosphate 75 mg Q12HR PO 01/15/25 10:00 01/20/25 09:59 UNV Vancomycin HCl 0 ml @ 0 mls/hr UD IV 01/15/25 06:15 UNV Methylprednisolone Sodium Succinate 40 mg Q8HR IV 01/15/25 14:00 UNV Ipratropium [place] 0.5 mg Q6HWA NEB 01/15/25 12:00 UNV Enoxaparin Sodium 40 mg DAILY SC 01/15/25 10:00 UNV Propofol 100 ml @ 1.62 mls/hr Q24H IV 01/15/25 06:30 UNV Exam Vital Signs Vital Signs Date Time Temp Pulse Resp B/P (MAP) Pulse Ox O2 Delivery O2 Flow Rate FiO2 01/15/25 06:13 110 24 228/104 (145) 100 100 01/15/25 03:45 Facial BiPAP Mask 01/15/25 03:20 98.7 98.7 01/15/25 03:20 8 Exam Patient lying in bed, under sedoanalgesia due to mechanical ventilation General: RASS -3, afebrile, mucosae are moist Cardiovascular: Normal S1 and S2. No murmurs, gallops or rubs Respiratory: Mechanically assisted ventilation, equal bilateral airway entree. Clear lung sounds on auscultation Abdomen: Soft, nontender, no organomegaly, normal bowel sounds MSK/skin: Mobilization of limbs cannot be evaluated. Skin is dry and warm Neurological: Orientation cannot be assessed. No apparent motor no sensitive deficits. Pupils are isocoric and reactive Labs/Xrays Labs Test 01/15/25 05:50 01/15/25 04:20 01/15/25 04:15 01/15/25 03:34 Range/Units Urine Opiates Screen Pos NEGATIVE Urine Fentanyl Screen Neg NEGATIVE Urine Barbiturates Screen Neg NEGATIVE Urine Phencyclidine Screen Neg NEGATIVE Urine Amphetamines Screen Neg NEGATIVE Urine Benzodiazepines Screen Neg NEGATIVE Urine Cocaine Screen Pos NEGATIVE Urine Cannabinoids Screen Neg NEGATIVE Troponin I High Sensitivity 10 </=34 ng/L Influenza Type A Antigen Positive Negative Influenza Type B Antigen Positive Negative SARS-CoV-2 Antigen (Rapid) Positive NEGATIVE White Blood Count 9.6 4.4-10.8 10^3/uL Red Blood Count 3.70 L 4.0-5.20 10^6/uL Hemoglobin 11.2 L 12.2-16.2 g/dL Hematocrit 34.7 L 36.0-46.0 % Mean Corpuscular Volume 93.8 80.0-100.0 fL Mean Corpuscular Hemoglobin 30.3 28.0-32.0 pg Mean Corpuscular Hemoglobin Concent 32.3 32.0-36.0 g/dL Red Cell Distribution Width 16.6 H 11.8-14.3 % Platelet Count 364 140-450 10^3/uL Mean Platelet Volume 9.1 6.9-10.8 fL Neutrophils (%) (Auto) 57.0 37.0-80.0 % Lymphocytes (%) (Auto) 24.1 10.0-50.0 % Monocytes (%) (Auto) 10.9 0.0-12.0 % Eosinophils (%) (Auto) 6.5 0.0-7.0 % Basophils (%) (Auto) 1.5 0.0-2.0 % Neutrophils # (Auto) 5.5 1.6-8.6 10 ^3/uL Lymphocytes # (Auto) 2.3 0.4-5.4 10 ^3/uL Monocytes # (Auto) 1.0 0-1.3 10 ^3/uL Eosinophils # (Auto) 0.6 0-0.8 10 ^3/uL Basophils # (Auto) 0.1 0-0.2 10 ^3/uL Nucleated Red Blood Cells 0.1 % Sodium Level 142 136-145 mmol/L Potassium Level 4.3 3.5-5.1 mmol/L Chloride Level 108 H 98-107 mmol/L Carbon Dioxide Level 28 20-31 mmol/L Anion Gap 6 5-15 Blood Urea Nitrogen 8 L 9-23 mg/dL Creatinine 0.58 0.550-1.02 mg/dL Glomerular Filtration Rate Calc 100 >90 mL/min BUN/Creatinine Ratio 13.8 10.0-20.0 Serum Glucose 154 H 74-106 mg/dL Lactic Acid Level 0.9 0.4-2.0 mmol/L Calcium Level 9.1 8.7-10.4 mg/dL Total Bilirubin 0.4 0.2-1.0 mg/dL Aspartate Amino Transferase (AST) 22 13-40 U/L Alanine Aminotransferase (ALT) 10 7-40 U/L Alkaline Phosphatase 75 46-116 U/L B-Type Natriuretic Peptide 45.60 0-100 pg/mL Total Protein 6.8 5.7-8.2 g/dL Albumin 4.1 3.2-4.8 g/dL Plasma/Serum Blood Alcohol < 3.0 <10 mg/dL SEPSIS Sepsis Screen Date sepsis recognized/suspect: Jan 15, 2025 Time Sepsis recognized/suspect: 333 Recent Procedure: No On Antibiotic Therapy: No Respiratory Rate >20: Yes Heart Rate >90: Yes Temp<36 C (96.8 F) or >38.3 C: No SBP <90 or MAP <65 mmHG: No New Acute Mental Status Change: No Is the patient on CPAP, BIPAP,: No Physician Orders Urinalysis (01/15/25 03:32) Chest Xray 1 View (01/15/25 03:32) BIPAP (01/15/25 03:32) Levalbuterol Hcl (Xopenex Medneb) (01/15/25 03:45) Piperacillin-Tazob 3.375gm (Zosyn 3.375g (01/15/25 12:00) Troponin-I Hs (01/15/25 06:45) Blood Culture (01/15/25 03:55) Abg W/ Co-Ox (01/15/25 04:06) Midazolam Drip 50 Mg/50ml (Versed Drip 5 (01/15/25 04:45) Fentanyl Drip 2500mcg/250mlns (01/15/25 04:45) Rass Sedation Scale Q1HR (01/15/25 04:44) Chest Portable (01/15/25 04:44) Respiratory Culture W/ Gs (01/15/25 04:55) Vent Ip Init (01/15/25 04:57) Communication Order (01/15/25 05:03) Abg W/ Co-Ox (01/15/25 06:00) Communication Order (01/15/25 05:39) Evans Catheters (01/15/25 ) Place Og Tube (01/15/25 05:51) Nicardipine 20 Mg/200 Ml (Cardene Iv) (01/15/25 06:15) Communication Order (01/15/25 06:12) Remdesivir Per Pharmacy (01/15/25 06:15) Oseltamivir 75mg Capsule (Tamiflu 75mg C (01/15/25 10:00) Oseltamivir 75mg Capsule (Tamiflu 75mg C (01/15/25 06:15) Vancomycin Per Pharmacy (01/15/25 06:15) Methylprednisolone Sod Succ (Solu Medrol (01/15/25 14:00) Ipratropium Medneb (Atrovent Medneb) (01/15/25 12:00) Enoxaparin Sodium (Lovenox) (01/15/25 10:00) Admit (01/15/25 06:15) Code Status (01/15/25 06:15) Complete Blood Count (01/16/25 04:00) Comprehensive Metabolic Panel (01/16/25 04:00) Npo (Nothing By Mouth) Diet (01/15/25 Breakfast) Echo 2d Mode Cardiac Dop (01/15/25 06:15) Oxygen By Nasal Cannula (01/15/25 06:15) Stat Ekg For Chest Pain (01/15/25 06:15) Notify Md Of Changes From Base (01/15/25 06:15) Insulation Machine Operator For 24 Hours (01/15/25 06:15) Emergency Dysrhythmia Protocol (01/15/25 06:15) Rhythm Strips Once Every Shift (01/15/25 06:15) Propofol (Diprivan) (01/15/25 06:30) Urine Bacterial Culture (01/15/25:25) Mrsa Screen (01/15/25:25) Abg W/ Co-Ox (01/15/25 06:25) Chest Xray 1 View (01/16/25 05:00) Chest Xray 1 View (01/17/25 05:00) Chest Xray 1 View (01/18/25 05:00) Chest Xray 1 View (01/19/25 05:00) Chest Xray 1 View (01/20/25 05:00) Chest Xray 1 View (01/21/25 05:00) Chest Xray 1 View (01/22/25 05:00) Chest Xray 1 View (01/23/25 05:00) Chest Xray 1 View (01/24/25 05:00) Chest Xray 1 View (01/25/25 05:00) Vital Signs Date Time Temp Pulse Resp B/P (MAP) Pulse Ox O2 Delivery O2 Flow Rate FiO2 01/15/25 06:13 110 24 228/104 (145) 100 100 01/15/25 06:10 228/104 01/15/25 06:05 211/89 01/15/25 06:00 103 24 230/99 (142) 100 01/15/25 05:55 210/89 01/15/25 05:45 102 24 213/76 (121) 100 01/15/25 05:30 98 24 225/93 (137) 100 01/15/25 05:25 236/124 01/15/25 05:15 112 24 242/111 (154) 100 01/15/25 05:05 247/125 01/15/25 05:05 247/125 01/15/25 05:00 112 24 247/123 (164) 100 01/15/25 05:00 113 24 100 100 01/15/25 04:51 114 01/15/25 04:45 114 24 240/133 (168) 100 01/15/25 04:44 158/32 01/15/25 04:00 98 31 163/85 (111) 99 01/15/25 03:45 104 163/85 98 Facial BiPAP Mask 40 01/15/25 03:20 98.7 104 30 163/85 (111) 100 98.7 01/15/25 03:20 104 30 100 Simple Mask* 8 60 01/15/25 03:20 114 01/15/25 03:12 97.8 109 32 189/80 100 97.8 Laboratory Tests Test 01/15/25 03:34 Lactic Acid Level 0.9 mmol/L (0.4-2.0) White Blood Count 9.6 10^3/uL (4.4-10.8) Medications Medications Dose Ordered Sig/Aida Route Start Time Stop Time Status Last Admin Dose Admin Etomidate 20 mg ONCE ONCE IV 01/15/25 04:45 01/15/25 04:46 DC 01/15/25 04:44 20 MG Fentanyl Citrate 250 ml @ 2.5 mls/hr Q24H IV 01/15/25 04:45 01/15/25 05:05 5 MLS/HR Ipratropium [place] 0.5 mg ONCE ONCE NEB 01/15/25 03:45 01/15/25 03:46 DC 01/15/25 06:12 0.5 MG Ipratropium [place] 0.5 mg STK-MED ONCE .ROUTE 01/15/25 03:41 01/15/25 03:36 DC 01/15/25 04:07 0.5 MG Levalbuterol HCl 1.25 mg Q6HR NEB 01/15/25 03:45 01/15/25 06:13 1.25 MG Methylprednisolone Sodium Succinate 62.5 mg ONCE ONCE IV 01/15/25 03:45 01/15/25 03:46 DC 01/15/25 03:45 62.5 MG Midazolam HCl 50 ml @ 1 mls/hr Q24H IV 01/15/25 04:45 01/15/25 05:05 1 MLS/HR Piperacillin Sod/ Tazobactam Sod 100 ml @ 200 mls/hr ONCE ONCE IV 01/15/25 03:45 01/15/25 04:14 DC 01/15/25 04:08 200 MLS/HR Rocuronium [place] 100 mg ONCE ONCE IV 01/15/25 04:45 01/15/25 04:46 DC 01/15/25 04:44 100 MG Assessment/Plan Assessment/Plan ASSESSMENT Acute on chronic hypoxic/hypercapnic respiratory failure due to viral pneumonia (COVID and influenza) Viral pneumonia with probable superimposed bacterial infection COPD exacerbation Moderately-severe pulmonary hypertension (RVSP 57 mmHg) Rule out pulmonary embolism Cocaine abuse Normocytic anemia Hypertension Diabetes PLAN Patient currently on mechanical assisted ventilation (VCV Vt 400, RR 24, PEEP 5 FIO2 100%) immediate post intubation, ordered ABG. Obtain le[place] cultures (blood, urine, sputum) Under empiric IV antibiotic (Zosyn and vancomycin) Under adjusted antiviral medication (remdesivir and oseltamivir). Currently on IV steroid treatment with methylprednisolone Ordered Agio CT to rule out pulmonary embolism Goals of care discussed with patient for over 18 minutes before her intubation and also discussed with sister (Larisa): Full code status Discussed plan with Dr. Mason, patient, family and nurses: Patient was emergently intubated due to respiratory distress, currently under empiric IV antibiotic and anti viral Critical care time spent including discussion with nursing and family, excluding procedures: 79 minutes Plan discussed with: Patient, Other (Sister (Larisa) and nurses) My Orders Orders - HESHAM VAZQUEZ RESIDENT Procedure Category Date Status Time Midazolam Drip 50 PHA 01/15/25 In Process Mg/50ml (Versed Drip 5 04:45 Fentanyl Drip PHA 01/15/25 In Process 2500mcg/250mlns 04:45 Rass Sedation Scale BRIA 01/15/25 In Process 04:44 Chest Portable XY 01/15/25 Logged 04:44 Respiratory Culture WINSOME 01/15/25 In Process W/ Gs 04:55 Vent Ip Init RT 01/15/25 Logged 04:57 Communication Order ORDERS 01/15/25 Transmitted 05:03 Abg W/ Co-Ox RT 01/15/25 Logged 06:00 Communication Order ORDERS 01/15/25 Transmitted 05:39 Evans Catheters ED NURSING 01/15/[address] Og Tube ORDERS 01/15/25 Transmitted 05:51 Remdesivir Per PHA 01/15/25 Logged Pharmacy 06:15 Oseltamivir 75mg PHA 01/15/25 Logged Capsule (Tamiflu 75mg 10:00 Oseltamivir 75mg PHA 01/15/25 Logged Capsule (Tamiflu 75mg 06:15 Vancomycin Per PHA 01/15/25 Logged Pharmacy 06:15 Methylprednisolone PHA 01/15/25 Logged Sod Succ (Solu Medrol 14:00 Ipratropium Medneb PHA 01/15/25 Logged (Atrovent Medneb) 12:00 Enoxaparin Sodium PHA 01/15/25 Logged (Lovenox) 10:00 Admit ADMIT 01/15/25 Transmitted 06:15 Code Status CODE 01/15/25 Transmitted 06:15 Complete Blood Count LAB 01/16/25 Verified 04:00 Comprehensive LAB 01/16/25 Verified Metabolic Panel 04:00 Npo (Nothing By DIET 01/15/25 Transmitted Mouth) Diet Breakfast Echo 2d Mode Cardiac US 01/15/25 Logged DOP 06:15 Oxygen By Nasal RT 01/15/25 Transmitted Cannula 06:15 Stat Ekg For Chest BRIA 01/15/25 In Process Pain 06:15 Notify Md Of Changes [facility] 01/15/25 In Process From Base 06:15 Insulation Machine Operator For [facility] 01/15/25 In Process 24 Hours 06:15 Emergency Dysrhythmia [facility] 01/15/25 In Process Protocol 06:15 Rhythm Strips Once [facility] 01/15/25 In Process Every Shift 06:15 Urine Bacterial [place]INSOME 01/15/25 Logged Culture 06:25 Mrsa Screen WINSOME 01/15/25 Logged 06:25 Abg W/ Co-Ox RT 01/15/25 Logged 06:25 Chest Xray 1 View XY 01/16/25 Logged 05:00 Chest Xray 1 View XY 01/17/25 Logged 05:00 Chest Xray 1 View XY 01/18/25 Logged 05:00 Chest Xray 1 View XY 01/19/25 Logged 05:00 Chest Xray 1 View XY 01/20/25 Logged 05:00 Chest Xray 1 View XY 01/21/25 Logged 05:00 Chest Xray 1 View XY 01/22/25 Logged 05:00 Chest Xray 1 View XY 01/23/25 Logged 05:00 Chest Xray 1 View XY 01/24/25 Logged 05:00 Chest Xray 1 View XY 01/25/25 Logged 05:00 Date of Service: Jan 15, 2025 Billing Provider: DIANA MASON MD Common Visit Codes: [id number] INP/OBS CARE (HIGH) Secondary Visit Codes: [id number] CARE PLAN 30 MINUTES HESHAM VAZQUEZ RESIDENT Jan 15, 2025 06:29
[2025-01-15 06:34] LABS: Urine Protein, UAD Negative (Negative)
[2025-01-15] MEDS: VANCOMYCIN 1GM/250ML KIT IV ONE ×2 (06:45→15:00)
[2025-01-15] MEDS: NOREPINEPHRINE 8 MG/250ML KIT 250 ML IV ONE (06:47)
[2025-01-15] MEDS: NOREPINEPHRINE 8 MG/250ML KIT 250 ML IV SCH (07:00)
--- NOTE | 2025-01-15 07:00 | DVH ---
CHEST RADIOGRAPH Indication: S/P INTUBATION Technique: Single frontal view of the chest was obtained COMPARISON: XY CHEST XRAY 1 VIEW on DOS: 01/15/25, XY CHEST XRAY 1 VIEW on DOS: 12/12/24, XY CHEST XRAY 1 VIEW on DOS: 12/11/24, XY CHEST XRAY 1 VIEW on DOS: 12/10/24, XY CHEST XRAY 1 VIEW on DOS: 12/09/24 FINDINGS: Lines and Tubes: Endotracheal tube tip projects approximately 5.3 cm above the level of the pedro. Enteric catheter courses below the level of the diaphragms and terminates beyond the inferior margin of the image. Left internal jugular central venous catheter tip projects at the expected location of the distal superior vena cava. Lungs: Mild diffuse increased prominence of the pulmonary vasculature without evidence of focal conso lidation. Pleura: No effusion. No pneumothorax. Cardiomediastinal contours: Unremarkable Bones: Unremarkable IMPRESSION: 1. Endotracheal tube terminates 5.3 cm above the level of the pedro. 2. Enteric catheter courses below the level of the diaphragms and terminates beyond the inferior js in of the image. 3. Left internal jugular central venous catheter tip projects at the expected location of the distal superior vena cava. 4. Mild diffuse increased prominence of the pulmonary vasculature without evidence of focal consolida tion.
[2025-01-15] MEDS: PROPOFOL 100 ML IV SCH (07:20)
[2025-01-15] MEDS ORDERED: REMDESIVIR 200mg in NS 210mL LOADING DOSE ADULT IV ONE (08:00)
[2025-01-15 08:33] LABS: Base Excess 0.9 mmol/L (-2.0-3.0)
--- NOTE | 2025-01-15 08:39 | DVHNC2 ---
Intubation Indication: Respiratory Insufficiency Prep: Preoxygenation Pretreated with: Analgesia, Sedation Medicated with: Other (Rocuronium) Intubation Approach: Orotracheal Intubation size: cm (7.5 cm) Informed consent obtained: Yes Risks/benefits/alt described: Yes Notes Patient was in respiratory distress, elective intubation done with glideoscope. Procedure supervised by Dr. Levine. Date of Service: Jan 15, 2025 Billing Provider: JAZMIN LEVINE MD Common Visit Codes: PROCEDURE ONLY Procedure Codes: [id number] JAIME LEAHY RESIDENT Jan 15, 2025 08:39
--- NOTE | 2025-01-15 08:43 | DVHNC2 ---
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) Indication: Inability to obtain IV Room prepared for procedure: Yes Van Driver Helper performed hand hygien: Yes Maximal sterile barrier precau: Mask/Eye shield, Sterile gown, Cap, Sterlie gloves, Large sterlie drape Skin Preparation: Chlorhexidine gluconate Skin preparation completely dr: Yes Insertion site: Left, Internal jugular, Line secured Central line catheter type: [id number] dialysis Number of lumens: 3 Central line exchanged over a: No Antiseptic ointment applied to: Yes Post Assessment: Chest X-Ray, Proper placement Informed consent obtained: Yes Risks/benefits/alt described: Yes Notes Completed central line placement with ultrasound guidance, procedure supervised by Dr Levine. Date of Service: Jan 15, 2025 Billing Provider: JAZMIN LEVINE MD Common Visit Codes: PROCEDURE ONLY Procedure Codes: [id number] NON-TUNNEL CV CATH JAIME LEAHY RESIDENT Jan 15, 2025 08:43
[2025-01-15] MEDS: REMDESIVIR 200mg in NS 210mL LOADING DOSE ADULT IV ONE ×2 (10:22→15:42)
[2025-01-15] MEDS: SODIUM CHLORIDE 0.9% 1,000 ML IV ONE (10:25)
[2025-01-15] MEDS: ENOXAPARIN SOD 40 MG/0.4 ML SYRINGE SC SCH (10:26)
--- NOTE | 2025-01-15 10:26 | DVHPN2 ---
Subjective Patient chemically sedated Reviewed: Care Plan, H&P, Labs, Medications Changes from previous H/P or p: No Changes Objective Vitals Vital Signs Date Time Temp Pulse Resp B/P (MAP) Pulse Ox O2 Delivery O2 Flow Rate FiO2 01/15/25 09:16 98.7 76 24 111/56 100 100 98.7 01/15/25 07:45 Mechanical Ventilator+ 01/15/25 03:20 8 Intake/Output Intake and Output 01/15/25 07:00 Intake Total 200 ml Balance 200 ml Intake IV Total 200 ml General Appearance: Other (Unable to assess) HEENT: Atraumatic, PERRLA Lungs: Clear to auscultation, Normal air movement, Other (Mechanical ventilation) Cardiovascular: Normal S1, Normal S2 Abdomen: Normal bowel sounds, Soft, No tenderness, No hepatospenomegaly Musculoskeletal: Normal sensory function, Normal motor function Skin: Dry, Intact Psych/Mental Status: Mental status NL, Mood NL Medications Current Medications Medications Dose Ordered Sig/Aida Route Start Time Stop Time Status Last Admin Dose Admin Levalbuterol HCl 1.25 mg Q6HR NEB 01/15/25 03:45 01/15/25 06:13 1.25 MG Piperacillin Sod/ Tazobactam Sod 100 ml @ 25 mls/hr Q8H IV 01/15/25 12:00 Midazolam HCl 50 ml @ 1 mls/hr Q24H IV 01/15/25 04:45 01/15/25 05:05 1 MLS/HR Fentanyl Citrate 250 ml @ 2.5 mls/hr Q24H IV 01/15/25 04:45 01/15/25 05:05 5 MLS/HR Nicardipine/ Sodium Chloride 200 ml @ 50 mls/hr Q4H IV 01/15/25 06:15 Remdesivir 0 ml @ 0 mls/hr PER PHARMACY IV 01/15/25 06:15 01/19/25 06:16 Oseltamivir Phosphate 75 mg Q12HR PO 01/15/25 22:00 01/20/25 21:59 Vancomycin HCl 0 ml @ 0 mls/hr UD IV 01/15/25 06:15 Methylprednisolone Sodium Succinate 40 mg Q8HR IV 01/15/25 14:00 Ipratropium [place] 0.5 mg Q6HWA NEB 01/15/25 12:00 Enoxaparin Sodium 40 mg DAILY SC 01/15/25 10:00 Propofol 100 ml @ 1.62 mls/hr Q24H IV 01/15/25 06:30 01/15/25 07:20 1.62 MLS/HR Norepinephrine Bitartrate 250 ml @ 3.75 mls/hr Q24H IV 01/15/25 06:45 01/15/25 07:00 3.75 MLS/HR Remdesivir 100 mg/ Sodium Chloride 250 ml @ 250 mls/hr DAILY@1500 IV 01/16/25 15:00 01/17/25 15:59 Cancel Remdesivir 100 mg/ Sodium Chloride 250 ml @ 250 mls/hr DAILY@1500 IV 01/16/25 15:00 01/19/25 15:59 Pantoprazole Sodium 40 mg DAILY IV 01/16/25 10:00 UNV Sodium Chloride 1,000 ml @ 75 mls/hr [id number] IV 01/15/25 10:30 UNV Laboratory Results Laboratory Tests 01/15/25 03:34 Chemistry Test 01/15/25 03:34 Albumin 4.1 g/dL (3.2-4.8) Calcium Level 9.1 mg/dL (8.7-10.4) Total Protein 6.8 g/dL (5.7-8.2) Cardiac Markers Test 01/15/25 03:34 B-Type Natriuretic Peptide 45.60 pg/mL (0-100) LFT Test 01/15/25 03:34 Alanine Aminotransferase (ALT) 10 U/L (7-40) Alkaline Phosphatase 75 U/L (46-116) Aspartate Amino Transferase (AST) 22 U/L (13-40) Total Bilirubin 0.4 mg/dL (0.2-1.0) Urinalysis Test 01/15/25 05:50 Urine Color Light-yellow (Yellow) Urine Clarity Clear (Clear) Urine pH 5.5 (5.0-9.0) Urine Specific [place] 1.021 (1.001-1.035) Urine Protein Negative (Negative) Urine Ketones Negative (Negative) Urine Blood Negative /uL (Negative) Urine Nitrite Negative (Negative) Urine Bilirubin Negative (Negative) Urine Urobilinogen Normal mg/dL (Negative) Urine Leukocyte Esterase Negative /uL (Negative) Urine RBC <1 /hpf (0 - 4) Urine Microscopic WBC 1 /HPF (0-5) Urine Squamous Epithelial Cells None seen /hpf (<5) Urine Bacteria None seen /hpf (None Seen) Urine Mucus Few (None Seen) Urine Glucose Normal mg/dL (Normal) Blood Gas Results Test 01/15/25 08:25 Arterial Blood pH 7.355 (7.350-7.450) FiO2 % 100.0 Labs and/or images reviewed: Labs reviewed by me, Image(s) reviewed by me Assessment/Plan Assessment/Plan Impression: -acute hypoxic respiratory failure, now on mechanical ventilation with failure of noninvasive positive pressure ventilation -COVID-19 -influenza a and B -COPD with exacerbation -substance abuse with cocaine -accelerated hypertension, now hypotensive probably secondary to sedation -rule out PE Plan: -continue current ventilator settings -continue sedation with propofol, fentanyl, Versed -PUD, DVT prophylaxis -continue remdesivir, consider discontinuing if FiO2 requirements improved -continue empiric antibiotic therapy -CT angiogram of the chest pending -check D-dimer, CRP -start IV hydration -repeat labs and chest x-ray in a.m. -norepinephrine drip to keep map greater than 65 Critical care time spent with patient discussing and formulating plan of care: 40 minutes. This does not include time spent performing procedures. This medical document was created using an electronic medical record system with [employer] dictation system. Although this document has been carefully reviewed, there may still be some phonetic and typographical errors. These areas are purely typographical due to imperfections of the software programs, and do not reflect any compromise in the patient's medical care. Plan discussed with: Patient, Other (RN) My Orders Orders - SIERRA MCCOLLUM NP Procedure Category Date Status Time Pantoprazole PHA 01/16/25 Logged (Protonix) 10:00 D-Dimer LAB 01/15/25 Verified 10:20 PTPTT LAB 01/15/25 Verified 10:20 Erythrocyte LAB 01/15/25 Verified Sedimentation Rate 10:20 C-Reactive Protein LAB 01/15/25 Verified 10:20 Date of Service: Jan 15, 2025 Billing Provider: SIERRA MCCOLLUM NP Common Visit Codes: [id number] CARE 30-74 MIN SIERRA MCCOLLUM NP Jan 15, 2025 10:26
[2025-01-15 11:28] LABS: INR 1.0 (0.9-1.15); Partial Thromboplastin Time 26.7 SEC (24.5-34.5); Prothrombin Time 10.6 sec (9.3-11.8)
[2025-01-15] MEDS: SODIUM CHLORIDE 0.9% 1,000 ML IV SCH (11:33)
[2025-01-15] MEDS: IPRATROPIUM BROM 0.5 MG/2.5ML INH SOL NEB SCH (12:00)
[2025-01-15] MEDS: PIPERACILLIN-TAZOB 3.375GM 100 ML IV SCH (12:02)
[2025-01-15] MEDS: methylPREDNISolone SOD SUCC 40 MG/ML VL IV SCH (15:00)
[2025-01-15] MEDS: IOHEXOL 350 MG/ML 100ML IJ ONE (17:16)
--- NOTE | 2025-01-15 17:38 | DVH ---
EXAM: CT CT ANGIO CHEST CONTRAST History: Rule out PE Comparison Study: CT CT ANGIO CHEST CONTRAST on DOS: 12/06/24, CT ANGIO CHEST on DOS: 03/29/23, CT CT A NGIO CHEST CONTRAST on DOS: 08/22/22 TECHNIQUE: A digital electric mule driver image was obtained. During the uneventful, intravenous administration of c ontrast material, multislice data acquisition was obtained through the chest. 3-D postprocessing is performed by technologist including MIP imaging Radiation Dose : CTDI vol 7.78 mGy, DLP 305.66 mGy*cm. Findings: Lungs: Centrilobular emphysema. Superior right lower lobe nodular opacity (axial image 113). 0.5 cm l eft lower lobe nodule (PET image 119). Pleura: Unremarkable Heart/Great vessels: No cardiomegaly or pericardial effusion. No pulmonary embolism, aneurysm, or dis section. Mediastinum: Endotracheal tube terminates above the pedro. Unremarkable Soft tissues/Bones: Mild multilevel degenerative changes of the thoracic spine. Enteric tube terminates in the stomach. Ventral hernia repair. Impression: 1. No evidence of a pulmonary embolism, aneurysm, or dissection. 2. Bilateral lower lobe nodular opacities may reflect an infectious / inflammatory etiology versus pu lmonary nodules. Consider follow-up CT chest in 6-12 months to assess for stability.
[2025-01-15] MEDS: OSELTAMIVIR 75 MG CAP PO SCH (21:42)
[2025-01-16] VITALS (109 sets, daily range): BP systolic 80–148; BP diastolic 41–79; PULSE 62–92; RESP 15–25; TEMP 96.1–100.2; O2SAT 92–100
[2025-01-16] MEDS: VANCOMYCIN 750MG KIT 100 ML IV SCH (00:24)
[2025-01-16] MEDS ORDERED: DEXTROSE (50%) 50ML SYRG IV PRN (00:30)
[2025-01-16 04:49] LABS: Hematocrit 31.1 % (36.0-46.0); Hemoglobin 10.2 g/dL (12.2-16.2); Mean Corpuscular Hemoglobin 30.0 pg (28.0-32.0); Mean Corpuscular Volume 91.5 fL (80.0-100.0); Nucleated Red Blood Cells % 0.0 %
[2025-01-16 05:05] LABS: Alanine Aminotransferase 10 U/L (7-40); Albumin 3.4 g/dL (3.2-4.8); Alkaline Phosphatase 63 U/L (46-116); Anion Gap 9 (5-15); BUN/Creatinine Ratio 13.4 (10.0-20.0); Bilirubin, Total 0.2 mg/dL (0.2-1.0); Blood Urea Nitrogen 9 mg/dL (9-23); Calcium 8.5 mg/dL (8.7-10.4); Carbon Dioxide 25 mmol/L (20-31); Chloride 111 mmol/L (98-107); Glucose 156 mg/dL (74-106); Potassium 3.9 mmol/L (3.5-5.1); Sodium 145 mmol/L (136-145); Total Protein 5.7 g/dL (5.7-8.2)
[2025-01-16] MEDS: InsuLIN REG 1unit/0.01ml Soln (100units/ml) SC SCH (05:51)
[2025-01-16] MEDS: ACCU-CHEK COMFORT CURVE STRIP VI SCH (05:53)
--- NOTE | 2025-01-16 05:57 | DVH ---
CHEST RADIOGRAPH Indication: ET intubation Technique: Single frontal view of the chest was obtained COMPARISON: XY CHEST PORTABLE on DOS: 01/15/25, XY CHEST XRAY 1 VIEW on DOS: 01/15/25, XY CHEST XRAY 1 VIEW on DOS: 12/12/24, XY CHEST XRAY 1 VIEW on DOS: 12/11/24, XY CHEST XRAY 1 VIEW on DOS: 12/10/24 FINDINGS: Lines and Tubes: Endotracheal tube, enteric catheter, and left central venous catheter in satisfactor y position. Lungs: Unchanged to slightly increased pulmonary vascular congestion. Pleura: No effusion. No pneumothorax. Cardiomediastinal contours: Unremarkable. Bones: Unremarkable. IMPRESSION: Lines and tubes in satisfactory position. Unchanged to slightly increased pulmonary vascular congestion.
[2025-01-16 07:28] LABS: Base Excess -2.1 mmol/L (-2.0-3.0)
[2025-01-16] MEDS: PANTOPRAZOLE 40 MG/10 ML VIAL INJ IV SCH (07:28)
[2025-01-16] MEDS: DEXMEDETOMIDINE HCL IN D5W 100 ML IV SCH (08:30)
[2025-01-16] MEDS ORDERED: Jevity 1.2 Cal/Fiber 1 Liter GT SCH (08:30)
--- NOTE | 2025-01-16 09:23 | DVHPN2 ---
Subjective Patient chemically sedated Reviewed: Care Plan, H&P, Labs, Medications Changes from previous H/P or p: No Changes Objective Vitals Vital Signs Date Time Temp Pulse Resp B/P (MAP) Pulse Ox O2 Delivery O2 Flow Rate FiO2 01/16/25 09:08 79 24 89/41 (57) 98 30 01/16/25 08:30 97.5 207.5 01/16/25 08:00 Mechanical Ventilator+ 01/15/25 03:20 8 Intake/Output Intake and Output 01/16/25 07:00 Intake Total 3533.85 ml Output Total 895 ml Balance 2638.85 ml Intake Oral 30 ml IV Total 3503.85 ml Output Urine Total 895 ml General Appearance: Other (Unable to assess) HEENT: Atraumatic, PERRLA Lungs: Clear to auscultation, Normal air movement, Other (Mechanical ventilation) Cardiovascular: Normal S1, Normal S2 Abdomen: Normal bowel sounds, Soft, No tenderness, No hepatospenomegaly Musculoskeletal: Normal sensory function, Normal motor function Skin: Dry, Intact Psych/Mental Status: Mental status NL, Mood NL Medications Current Medications Medications Dose Ordered Sig/Aida Route Start Time Stop Time Status Last Admin Dose Admin Levalbuterol HCl 1.25 mg Q6HR NEB 01/15/25 03:45 01/16/25 05:47 1.25 MG Piperacillin Sod/ Tazobactam Sod 100 ml @ 25 mls/hr Q8H IV 01/15/25 12:00 01/16/25 04:19 25 MLS/HR Midazolam HCl 50 ml @ 1 mls/hr Q24H IV 01/15/25 04:45 01/16/25 05:20 10 MLS/HR Fentanyl Citrate 250 ml @ 2.5 mls/hr Q24H IV 01/15/25 04:45 01/16/25 00:35 15 MLS/HR Nicardipine/ Sodium Chloride 200 ml @ 50 mls/hr Q4H IV 01/15/25 06:15 Oseltamivir Phosphate 75 mg Q12HR PO 01/15/25 22:00 01/20/25 21:59 01/16/25 07:28 75 MG Methylprednisolone Sodium Succinate 40 mg Q8HR IV 01/15/25 14:00 01/16/25 05:53 40 MG Ipratropium [place] 0.5 mg Q6HWA NEB 01/15/25 12:00 01/16/25 05:47 0.5 MG Enoxaparin Sodium 40 mg DAILY SC 01/15/25 10:00 01/16/25 07:28 40 MG Propofol 100 ml @ 1.62 mls/hr Q24H IV 01/15/25 06:30 01/15/25 18:03 3.24 MLS/HR Norepinephrine Bitartrate 250 ml @ 3.75 mls/hr Q24H IV 01/15/25 06:45 01/15/25 07:00 3.75 MLS/HR Remdesivir 100 mg/ Sodium Chloride 250 ml @ 250 mls/hr DAILY@1500 IV 01/16/25 15:00 01/17/25 15:59 Cancel Pantoprazole Sodium 40 mg DAILY IV 01/16/25 10:00 01/16/25 07:28 40 MG Diagnostic Test (Pha) 1 strip Q6HR 01/16/25 06:00 01/16/25 05:53 1 STRIP Insulin Human Regular Q6HR SC 01/16/25 06:00 01/16/25 05:51 3 UNITS Dextrose 50 ml UD PRN IV 01/16/25 00:30 Enteral Nutritional Formula 1,000 ml 30ML/HR GT 01/16/25 08:30 Laboratory Results Laboratory Tests 01/16/25 04:29 Chemistry Test 01/16/25 04:29 Albumin 3.4 g/dL (3.2-4.8) Calcium Level 8.5 mg/dL (8.7-10.4) L Total Protein 5.7 g/dL (5.7-8.2) Coagulation Test 01/15/25 10:34 Prothrombin Time 10.6 sec (9.3-11.8) Prothrombin Time INR 1.00 (0.9-1.15) Activated Partial Thromboplast Time 26.7 SEC (24.5-34.5) D-Dimer, Quantitative 0.37 mg/L FEU (0.0-0.49) LFT Test 01/16/25 04:29 Alanine Aminotransferase (ALT) 10 U/L (7-40) Alkaline Phosphatase 63 U/L (46-116) Aspartate Amino Transferase (AST) 9 U/L (13-40) L Total Bilirubin 0.2 mg/dL (0.2-1.0) Urinalysis Test 01/15/25 05:50 Urine Color Light-yellow (Yellow) Urine Clarity Clear (Clear) Urine pH 5.5 (5.0-9.0) Urine Specific [place] 1.021 (1.001-1.035) Urine Protein Negative (Negative) Urine Ketones Negative (Negative) Urine Blood Negative /uL (Negative) Urine Nitrite Negative (Negative) Urine Bilirubin Negative (Negative) Urine Urobilinogen Normal mg/dL (Negative) Urine Leukocyte Esterase Negative /uL (Negative) Urine RBC <1 /hpf (0 - 4) Urine Microscopic WBC 1 /HPF (0-5) Urine Squamous Epithelial Cells None seen /hpf (<5) Urine Bacteria None seen /hpf (None Seen) Urine Mucus Few (None Seen) Urine Glucose Normal mg/dL (Normal) Blood Gas Results Test 01/16/25 07:13 Arterial Blood pH 7.406 (7.350-7.450) FiO2 % 30.0 Microbiology Microbiology Date/Time Source Procedure Growth Status 01/15/25 04:20 Blood Blood Culture - Preliminary NO GROWTH AFTER 24 HOURS OF INCUBATION. Resulted Labs and/or images reviewed: Labs reviewed by me, Image(s) reviewed by me Assessment/Plan Assessment/Plan Impression: -acute hypoxic respiratory failure, now on mechanical ventilation with failure of noninvasive positive pressure ventilation -COVID-19 -influenza a and B -COPD with exacerbation -substance abuse with cocaine -accelerated hypertension, now hypotensive probably secondary to sedation -rule out PE Plan: Events: PE study negative -stop remdesivir -continue Tamiflu -stop vancomycin -continue tube feeding -continue sedation with propofol, fentanyl, Versed -D-dimer, CRP negative. Decrease Solu-Medrol to 40 mg IV b.i.d. -PUD, DVT prophylaxis -IV diuresis, stop normal saline -repeat labs and chest x-ray in a.m. -norepinephrine drip to keep map greater than 65 Critical care time spent with patient discussing and formulating plan of care: 40 minutes. This does not include time spent performing procedures. This medical document was created using an electronic medical record system with [employer] system. Although this document has been carefully reviewed, there may still be some phonetic and typographical errors. These areas are purely typographical due to imperfections of the software programs, and do not reflect any compromise in the patient's medical care. Plan discussed with: Patient, Other (RN) My Orders Orders - SIERRA MCCOLLUM NP Procedure Category Date Status Time Pantoprazole PHA 01/16/25 In Process (Protonix) 10:00 Cpap/Sed Vacation Med ORDERS 01/16/25 Transmitted Weaning 08:24 Cpap Trial For Am ORDERS 01/16/25 Transmitted 08:24 Nutritional PHA 01/16/25 In Process Supplements (Jevity 08:30 Dexmedetomidine Hcl PHA 01/16/25 In Process In D5w (Precedex) 08:30 Basic Metabolic Panel LAB 01/17/25 Verified 05:00 Basic Metabolic Panel LAB 01/18/25 Verified 05:00 Basic Metabolic Panel LAB 01/19/25 Verified 05:00 Complete Blood Count LAB 01/17/25 Verified 05:00 Complete Blood Count LAB 01/18/25 Verified 05:00 Complete Blood Count LAB 01/19/25 Verified 05:00 Methylprednisolone PHA 01/16/25 Verified Sod Succ (Solu Medrol 10:00 Date of Service: Jan 16, 2025 Billing Provider: SIERRA MCCOLLUM NP Common Visit Codes: [id number] CARE 30-74 MIN SIERRA MCCOLLUM NP Jan 16, 2025 09:23
[2025-01-16] MEDS ORDERED: REMDESIVIR 100mg in NS 230mL (5 DAY REGIMEN) IV SCH (15:00)
[2025-01-16] MEDS ORDERED: REMDESIVIR 100mg in NS 230mL (3 DAY REGIMEN) IV SCH (15:00)
[2025-01-16] MEDS ORDERED: BACLOFEN 10 MG TAB PO PRN (18:00)
--- NOTE | 2025-01-16 19:18 | DVHSR ---
APPROVED REPORT EXAM: LIMITED Two-dimensional and M-mode echocardiogram with Doppler and color Doppler. Blood Pressure: 108/64 mmHg INDICATION Acute Respiratory Failure RISK FACTORS Height: 5' 2", Weight: 119 DIMENSIONS LVDd2.8 (3.8-5.7cm)LA (2D)3.5 (1.9-4.0cm)Aortic Root3.1 (2.0-3.7cm) LVDs1.3 (2.5-4.0cm)LA (MM) (1.9-4.0cm)Aortic Cusp Exc1.7 (1.5-2.0cm) EF (%) 75.0 (55-70%)Rt. Atrium3.8 (1.9-4.0cm)Asc. Aorta cm IVSd1.0 (0.7-1.1cm)RV (D) (1.8-2.4cm) PWd1.0 (0.7-1.1cm) Mitral Valve MitralMitral Stenosis E wave0.90m/sMV Mean GR.mmHg A wave1.10m/sMV Peak GR.mmHg E/A ratio0.82D MVAcm2 Aortic Valve Aortic ValveAortic Stenosis V12.30m/Sandra Mean GR.11mmHg V22.50m/Sandra Peak GR.25mmHg LVOT Diameter2.2 (1.8-2.4cm)Doppler AVA3.50cm2 Tricuspid Valve TR Velocity2.20m/s [id number] Other Information Quality : Technically LimitedRhythm : Technically limited study due to on vent. Conclusion MILD LVH AND MILD LV DIASTOLIC DYSFUNCTION LV EF IS 65% AORTIC SCLEROSIS NO EFFUSION
[2025-01-16] MEDS: methylPREDNISolone SOD SUCC 40 MG/ML VL IV SCH (21:55)
[2025-01-17] VITALS (111 sets, daily range): BP systolic 80–178; BP diastolic 45–89; PULSE 48–86; RESP 20–25; TEMP 96.6–100; O2SAT 89–100
[2025-01-17 05:41] LABS: Hematocrit 29.8 % (36.0-46.0); Hemoglobin 9.8 g/dL (12.2-16.2); Mean Corpuscular Hemoglobin 30.2 pg (28.0-32.0); Mean Corpuscular Volume 91.8 fL (80.0-100.0); Nucleated Red Blood Cells % 0.0 %
[2025-01-17 05:44] LABS: Anion Gap 8 (5-15); Carbon Dioxide 26 mmol/L (20-31); Potassium 3.8 mmol/L (3.5-5.1); Sodium 145 mmol/L (136-145)
[2025-01-17 05:47] LABS: Calcium 8.6 mg/dL (8.7-10.4); Chloride 111 mmol/L (98-107)
[2025-01-17 05:50] LABS: BUN/Creatinine Ratio 19.7 (10.0-20.0); Blood Urea Nitrogen 15 mg/dL (9-23); Glucose 91 mg/dL (74-106)
--- NOTE | 2025-01-17 06:19 | DVH ---
CHEST RADIOGRAPH Indication: ET intubation Technique: Single frontal view of the chest was obtained COMPARISON: XY CHEST XRAY 1 VIEW on DOS: 01/16/25, CT CT ANGIO CHEST CONTRAST on DOS: 01/15/25, XY CHES T PORTABLE on DOS: 01/15/25, XY CHEST XRAY 1 VIEW on DOS: 01/15/25, XY CHEST XRAY 1 VIEW on DOS: 5 FINDINGS: Lines and Tubes: Slight interval retraction of the endotracheal tube such that the tip now projects a pproximately 5.3 cm above the level of the pedro. Remaining lines and tubes unchanged. Lungs: Clear Pleura: Trace left pleural effusion. No pneumothorax. Cardiomediastinal contours: Unremarkable Bones: Unremarkable IMPRESSION: 1. Slight interval retraction of the endotracheal tube such that the tip now projects approximately 5 .3 cm above the level of the pedro. Remaining Lines and tubes unchanged. 2. Trace left pleural effusion.
[2025-01-17 07:43] LABS: Base Excess -0.4 mmol/L (-2.0-3.0)
[2025-01-17] MEDS ORDERED: LOSARTAN POTASSIUM 50 MG TAB PO SCH (10:00)
[2025-01-17] MEDS ORDERED: hydroCHLOROthiazide 25 MG TAB PO SCH (10:00)
--- NOTE | 2025-01-17 17:29 | DVHPN2 ---
Subjective ON VENT Reviewed: Care Plan, H&P, Labs, Medications, Previous Orders, Radiology Changes from previous H/P or p: No Changes Objective Vitals Vital Signs Date Time Temp Pulse Resp B/P (MAP) Pulse Ox O2 Delivery O2 Flow Rate FiO2 01/17/25 16:17 62 24 135/70 (91) 99 30 01/17/25 16:00 99.0 210.2 01/17/25 15:44 Mechanical Ventilator+ Intake/Output Intake and Output 01/17/25 07:00 Intake Total 982.97 ml Output Total 1250 ml Balance -267.03 ml Intake Oral 80 ml IV Total 902.97 ml Output Urine Total 1250 ml General Appearance: Other (ON VENT) HEENT: Atraumatic Lungs: Other (FEW CRACKLES B LUNGS) Cardiovascular: Regular rate Abdomen: Normal bowel sounds, Soft Extremities: No edema Medications Current Medications Medications Dose Ordered Sig/Aida Route Start Time Stop Time Status Last Admin Dose Admin Levalbuterol HCl 1.25 mg Q6HR NEB 01/15/25 03:45 01/17/25 11:04 1.25 MG Piperacillin Sod/ Tazobactam Sod 100 ml @ 25 mls/hr Q8H IV 01/15/25 12:00 01/17/25 10:34 25 MLS/HR Midazolam HCl 50 ml @ 1 mls/hr Q24H IV 01/15/25 04:45 01/17/25 15:32 2 MLS/HR Fentanyl Citrate 250 ml @ 2.5 mls/hr Q24H IV 01/15/25 04:45 01/17/25 08:21 12.5 MLS/HR Oseltamivir Phosphate 75 mg Q12HR PO 01/15/25 22:00 01/20/25 21:59 01/17/25 07:21 75 MG Ipratropium [place] 0.5 mg Q6HWA NEB 01/15/25 12:00 01/17/25 11:04 0.5 MG Enoxaparin Sodium 40 mg DAILY SC 01/15/25 10:00 01/17/25 07:21 40 MG Propofol 100 ml @ 1.62 mls/hr Q24H IV 01/15/25 06:30 01/16/25 16:13 4.86 MLS/HR Norepinephrine Bitartrate 250 ml @ 3.75 mls/hr Q24H IV 01/15/25 06:45 01/15/25 07:00 3.75 MLS/HR Remdesivir 100 mg/ Sodium Chloride 250 ml @ 250 mls/hr DAILY@1500 IV 01/16/25 15:00 01/17/25 15:59 Cancel Pantoprazole Sodium 40 mg DAILY IV 01/16/25 10:00 01/17/25 07:21 40 MG Diagnostic Test (Pha) 1 strip Q6HR 01/16/25 06:00 01/17/25 16:41 1 STRIP Insulin Human Regular Q6HR SC 01/16/25 06:00 01/16/25 05:51 3 UNITS Dextrose 50 ml UD PRN IV 01/16/25 00:30 Methylprednisolone Sodium Succinate 40 mg Q12HR IV 01/16/25 22:00 01/17/25 07:21 40 MG Baclofen 5 mg Q8HP PRN PO 01/16/25 18:00 UNV Amlodipine Besylate 10 mg DAILY PO 01/17/25 10:00 UNV Hydrochlorothiazide 50 mg DAILY PO 01/17/25 10:00 UNV Losartan Potassium 50 mg DAILY PO 01/17/25 10:00 UNV Enteral Nutritional Formula 1,000 ml 50ML/HR GT 01/17/25 15:45 Laboratory Results Laboratory Tests 01/17/25 04:53 Chemistry Test 01/17/25 04:53 Calcium Level 8.6 mg/dL (8.7-10.4) L Urinalysis Test 01/15/25 05:50 Urine Color Light-yellow (Yellow) Urine Clarity Clear (Clear) Urine pH 5.5 (5.0-9.0) Urine Specific [place] 1.021 (1.001-1.035) Urine Protein Negative (Negative) Urine Ketones Negative (Negative) Urine Blood Negative /uL (Negative) Urine Nitrite Negative (Negative) Urine Bilirubin Negative (Negative) Urine Urobilinogen Normal mg/dL (Negative) Urine Leukocyte Esterase Negative /uL (Negative) Urine RBC <1 /hpf (0 - 4) Urine Microscopic WBC 1 /HPF (0-5) Urine Squamous Epithelial Cells None seen /hpf (<5) Urine Bacteria None seen /hpf (None Seen) Urine Mucus Few (None Seen) Urine Glucose Normal mg/dL (Normal) Blood Gas Results Test 01/17/25 07:03 Arterial Blood pH 7.472 (7.350-7.450) FiO2 % 30.0 Microbiology Microbiology Date/Time Source Procedure Growth Status 01/15/25 10:43 Urine - [place] Urine Culture - Final Complete 01/15/25 06:25 Nose MRSA Screen - Final Complete 01/15/25 04:20 Blood Blood Culture - Preliminary NO GROWTH AFTER 48 HOURS OF INCUBATION. Resulted Assessment/Plan Assessment/Plan Acute respiratory failure COVID infection with flu a and flu B as well Anemia Cocaine use Diabetes COPD/chronic respiratory failure Plan: Chest x-ray. ABGs. CBC. Nutritional support with tube feeding. Monitor vital signs oxygenation. Further plan per orders. Total critical care time 35 minutes Plan discussed with: Other (Nursing) My Orders Orders - LIANG EVANS MD Procedure Category Date Status Time Tube Feeding DIET 01/17/25 Transmitted Dinner Nutritional PHA 01/17/25 In Process Supplements (Glucerna 15:45 Date of Service: Jan 17, 2025 Billing Provider: LIANG EVANS MD Common Visit Codes: [id number] CARE 30-74 MIN LIANG EVANS MD Jan 17, 2025 17:29
[2025-01-17] MEDS: hydrALAZINE HCL 20 MG/ML VL IV ONE (23:04)
[2025-01-17] MEDS: Glucerna 1.2 Cal 1Liter BOTTLE GT SCH (23:42)
[2025-01-18] VITALS (110 sets, daily range): BP systolic 85–161; BP diastolic 44–101; PULSE 59–114; RESP 18–29; TEMP 96.3–98.2; O2SAT 96–100
[2025-01-18 03:49] LABS: Potassium 3.5 mmol/L (3.5-5.1)
[2025-01-18 03:50] LABS: Anion Gap 10 (5-15); Calcium 8.9 mg/dL (8.7-10.4); Carbon Dioxide 25 mmol/L (20-31)
[2025-01-18 03:51] LABS: Chloride 112 mmol/L (98-107); Sodium 147 mmol/L (136-145)
[2025-01-18 03:55] LABS: BUN/Creatinine Ratio 21.3 (10.0-20.0); Blood Urea Nitrogen 13 mg/dL (9-23)
[2025-01-18 03:56] LABS: Glucose 113 mg/dL (74-106)
[2025-01-18 05:03] LABS: Hematocrit 33.6 % (36.0-46.0); Hemoglobin 11.2 g/dL (12.2-16.2); Mean Corpuscular Hemoglobin 30.0 pg (28.0-32.0); Mean Corpuscular Volume 90.4 fL (80.0-100.0); Nucleated Red Blood Cells % 0.1 %
--- NOTE | 2025-01-18 06:09 | DVH ---
INDICATION: FU TECHNIQUE: Single frontal view of the chest was obtained COMPARISON: XY CHEST XRAY 1 VIEW on DOS: 01/17/25, XY CHEST XRAY 1 VIEW on DOS: 01/16/25, XY CHEST PORT ABLE on DOS: 01/15/25, XY CHEST XRAY 1 VIEW on DOS: 01/15/25, XY CHEST XRAY 1 VIEW on DOS: 12/12/24, XY CHEST XRAY 1 VIEW on DOS: 01/17/25 FINDINGS: Lines and Tubes: ET tube 5.3 cm above the level of the pedro. Remaining lines and tubes unchanged. Lungs: Clear Pleura: Trace left pleural effusion. No pneumothorax. Cardiomediastinal contours: Unremarkable Bones: Unremarkable IMPRESSION:No interval change.
[2025-01-18 06:11] LABS: Base Excess 0.1 mmol/L (-2.0-3.0)
--- NOTE | 2025-01-18 07:48 | DVHNC2 ---
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 Indication: Hypotension, CVP monitoring Room prepared for procedure: Yes Manager Area performed hand hygien: Yes Maximal sterile barrier precau: Mask/Eye shield, Sterile gown Skin Preparation: Chlorhexidine gluconate, Providine iodine Skin preparation completely dr: Yes Insertion site: Right, Femoral Central line catheter type: [id number] dialysis Number of lumens: 3 Antiseptic ointment applied to: Yes Date of Service: Jan 18, 2025 Billing Provider: JACKELYN GALLEGOS MD Common Visit Codes: [id number] INP/OBS CARE (HIGH) Secondary Visit Codes: [id number] [employer]BY [employer]ICE Consultation Codes: [id number] CONSULT <45MIN Procedure Codes: [id number] NON-TUNNEL CV CATH JACKELYN GALLEGOS MD Jan 18, 2025 07:48
--- NOTE | 2025-01-18 16:40 | DVHPN2 ---
Subjective ON VENT Reviewed: Care Plan, H&P, Labs, Medications, Previous Orders, Radiology Changes from previous H/P or p: No Changes Objective Vitals Vital Signs Date Time Temp Pulse Resp B/P (MAP) Pulse Ox O2 Delivery O2 Flow Rate FiO2 01/18/25 15:40 18 100 Mechanical Ventilator+ 30 30 01/18/25 15:40 65 01/18/25 15:30 115/63 (80) 01/18/25 11:45 98.2 98.2 Intake/Output Intake and Output 01/18/25 07:00 Intake Total 1920.16 ml Output Total 4450 ml Balance -2529.84 ml Intake Oral 50 ml IV Total 1150.16 ml Tube Feeding 720 ml Output Urine Total 4450 ml Stool Total 0 ml General Appearance: Other (ON VENT) HEENT: Atraumatic Lungs: Other (FEW CRACKLES B LUNGS) Cardiovascular: Regular rate Abdomen: Normal bowel sounds, Soft Extremities: No edema Medications Current Medications Medications Dose Ordered Sig/Aida Route Start Time Stop Time Status Last Admin Dose Admin Levalbuterol HCl 1.25 mg Q6HR [facility] 01/15/25 03:45 01/18/25 11:07 1.25 MG Piperacillin Sod/ Tazobactam Sod 100 ml @ 25 mls/hr Q8H IV 01/15/25 12:00 01/18/25 10:40 25 MLS/HR Midazolam HCl 50 ml @ 1 mls/hr Q24H IV 01/15/25 04:45 01/18/25 11:44 1 MLS/HR Fentanyl Citrate 250 ml @ 2.5 mls/hr Q24H IV 01/15/25 04:45 01/18/25 01:53 17.5 MLS/HR Ipratropium [place] 0.5 mg Q6HWA [facility] 01/15/25 12:00 01/18/25 11:07 0.5 MG Enoxaparin Sodium 40 mg DAILY SC 01/15/25 10:00 01/18/25 07:58 40 MG Propofol 100 ml @ 1.62 mls/hr Q24H IV 01/15/25 06:30 01/18/25 14:45 9.72 MLS/HR Norepinephrine Bitartrate 250 ml @ 3.75 mls/hr Q24H IV 01/15/25 06:45 01/15/25 07:00 3.75 MLS/HR Remdesivir 100 mg/ Sodium Chloride 250 ml @ 250 mls/hr DAILY@1500 IV 01/16/25 15:00 01/17/25 15:59 Cancel Pantoprazole Sodium 40 mg DAILY IV 01/16/25 10:00 01/18/25 07:50 40 MG Diagnostic Test (Pha) 1 strip Q6HR 01/16/25 06:00 01/18/25 10:40 1 STRIP Insulin Human Regular Q6HR SC 01/16/25 06:00 01/16/25 05:51 3 UNITS Dextrose 50 ml UD PRN IV 01/16/25 00:30 Methylprednisolone Sodium Succinate 40 mg Q12HR IV 01/16/25 22:00 01/18/25 07:58 40 MG Baclofen 5 mg Q8HP PRN PO 01/16/25 18:00 UNV Amlodipine Besylate 10 mg DAILY PO 01/17/25 10:00 UNV Hydrochlorothiazide 50 mg DAILY PO 01/17/25 10:00 UNV Losartan Potassium 50 mg DAILY PO 01/17/25 10:00 UNV Enteral Nutritional Formula 1,000 ml 50ML/HR GT 01/17/25 15:45 01/17/25 23:42 1,000 ML Oseltamivir Phosphate 30 mg Q12HR PO 01/18/25 22:00 01/20/25 21:59 Laboratory Results Laboratory Tests 01/18/25 03:11 Chemistry Test 01/18/25 03:11 Calcium Level 8.9 mg/dL (8.7-10.4) Coagulation Test 01/18/25 03:11 D-Dimer, Quantitative 0.30 mg/L FEU (0.0-0.49) Urinalysis Test 01/15/25 05:50 Urine Color Light-yellow (Yellow) Urine Clarity Clear (Clear) Urine pH 5.5 (5.0-9.0) Urine Specific [place] 1.021 (1.001-1.035) Urine Protein Negative (Negative) Urine Ketones Negative (Negative) Urine Blood Negative /uL (Negative) Urine Nitrite Negative (Negative) Urine Bilirubin Negative (Negative) Urine Urobilinogen Normal mg/dL (Negative) Urine Leukocyte Esterase Negative /uL (Negative) Urine RBC <1 /hpf (0 - 4) Urine Microscopic WBC 1 /HPF (0-5) Urine Squamous Epithelial Cells None seen /hpf (<5) Urine Bacteria None seen /hpf (None Seen) Urine Mucus Few (None Seen) Urine Glucose Normal mg/dL (Normal) Blood Gas Results Test 01/18/25 06:08 Arterial Blood pH 7.541 (7.350-7.450) FiO2 % 30.0 Microbiology Microbiology Date/Time Source Procedure Growth Status 01/15/25 10:43 Urine - [place] Urine Culture - Final Complete 01/15/25 06:25 Nose MRSA Screen - Final Complete 01/15/25 04:20 Blood Blood Culture - Preliminary NO GROWTH AFTER 72 HOURS OF INCUBATION. Resulted Assessment/Plan Assessment/Plan Acute respiratory failure COVID infection with flu a and flu B as well Anemia Cocaine use Diabetes COPD/chronic respiratory failure Plan: Chest x-ray. ABGs. CBC. Monitor vital signs oxygenation. Further plan per orders. Total critical care time 30 minutes Plan discussed with: Other (NURSING) My Orders Orders - LIANG EVANS MD Procedure Category Date Status Time Chest Portable XY 01/18/25 Resulted 06:00 Abg W/ Co-Ox RT 01/18/25 Logged 06:00 Date of Service: Jan 18, 2025 Billing Provider: LIANG EVANS MD Common Visit Codes: [id number] CARE 30-74 MIN LIANG EVANS MD Jan 18, 2025 16:40
--- NOTE | 2025-01-18 22:23 | DVHINCON2 ---
Date Seen: Jan 17, 2025 Referring Physician ASHLEE Weiner Reason for Consultation Vent management, COVID-19, flu, COPD exacerbation History of Present Illness A 64-year-old woman with PMHx of COPD on home O2, pulmonary hypertension, hypertension and diabetes who presents to ED via EMS on 01/15/25 due to progressive dyspnea from Functional Class II to Functional Class IV for the past day before her admission. Patient presented in acute respiratory failure requiring endotracheal intubation in ED. Obtained past medical history and other relevant history from EMR and previous discharge summaries. Could not obtain review of systems due to clinical status. Patient was admitted for further care. Pulmonary consultation is requested for evaluation and management of acute hypoxic respiratory failure requiring mechanical ventilator, COVID-19, flu, and COPD exacerbation. Review of Systems: Unable to obtain d/t intubated status Past Medical History: COPD on home oxygen 3 L/min History of recent intubation for COPD exacerbation and COVID/influenza pneumonia Moderately-severe pulmonary hypertension (last echocardiogram on 11/2024 which showed LVEF 65%, moderate dilated RV and RA, moderately severe pulmonary hypertension with RVSP 57 mmHg) Hypertension Diabetes mellitus. Past Surgical History: Cervical spine surgery Medications: Reviewed. Allergies: Amitriptyline, fluoxetine, gabapentin, NSAIDs Family History: No family history of premature CAD. No family history of lung disorders. Social History: Former smoker. Ex tobacco abuse (30 pack-year history of smoking), quit approximately one year ago. No alcohol use. Currently uses cocaine (last use two days ago). . Family History: Patient reports no known family medical history. Allergies: Coded Allergies: Amitriptyline (Verified Allergy, Unknown, 08/22/22) Fluoxetine (Verified Allergy, Unknown, 11/06/17) Gabapentin (Verified Allergy, Unknown, 11/06/17) NSAIDs (Verified Allergy, Unknown, 11/06/17) Home Meds Active Scripts Prednisone (Prednisone) 20 Mg Tab, 20 MG PO QAM for 5 Days, #5 MG Prov:KIRILL RAO MD 12/16/24 Fluconazole (Fluconazole) 100 Mg Tab, 100 MG PO DAILY for 5 Days, #5 TAB Prov:KIRILL RAO MD 12/16/24 Nystatin (Mouth-Throat) (Mycostatin (Mouth-Throat)) 500,000 Units/5 Ml Ss, 5 ML MT QID for 5 Days, #100 ML Prov:KIRILL RAO MD 12/16/24 Pantoprazole Sodium Sesquihydr (Pantoprazole Sodium) 40 Mg Tab, 40 MG PO DAILY for 30 Days, #30 TAB Prov:LUCERO DUARTE MD 04/13/24 Prednisone (Prednisone) 10 Mg Tab, 20 MG PO as directed PRN, #5 MG Prov:LUCERO DUARTE MD 04/13/24 Prednisone (Prednisone) 10 Mg Tab, 20 MG PO half daily for 4 Days, #2 MG Prov:LUCERO DUARTE MD 04/13/24 Prednisone (Prednisone) 10 Mg Tab, 20 MG PO DAILY for 3 Days, MG Prov:LUCERO DUARTE MD 04/13/24 Metformin Hydrochloride (Metformin Hcl) 500 Mg Tab, 1 TAB PO BID, #60 TAB 3 Refills Prov:PAULA OCHOA MD 04/15/23 Reported Medications Simvastatin (Simvastatin) 40 Mg Tab, 1 TAB PO DAILY for 90 Days, #90 03/04/24 Losartan Potassium (Losartan Potassium) 50 Mg Tab, 1 TAB PO DAILY for 90 Days, #90 03/04/24 Ertheuaqpkv-Igcclgqeckba-Iezff (Trelegy Ellipta 100-62.5-25 Mcg/INH) 1 Aer Aer, 1 PUFF IN DAILY for 30 Days, #60 03/04/24 Albuterol Sulfate (Albuterol Sulfate Hfa) 108 Mcg/Act Aer, 1 PUFF IN Q4-6HR PRN for WHEEZING for 33 Days, #18 03/04/24 Trazodone Hcl (Trazodone Hcl) 100 Mg Tab, 1 TAB PO HS PRN for FOR INSOMNIA for 30 Days, #30 03/04/24 Cholecalciferol (VITAMIN D3) 2,000 Unit Tab, 1 TAB PO DAILY for 30 Days, #30 03/04/24 Current Medications Current Medications Medications (Trade) Dose Ordered Sig/Aida Route PRN Reason Start Time Stop Time Status Last Admin Oseltamivir Phosphate (Tamiflu 30MG Capsule) 30 mg Q12HR PO 01/18/25 22:00 01/20/25 21:59 Vital Signs Vital Signs Date Time Temp Pulse Resp B/P (MAP) Pulse Ox O2 Delivery O2 Flow Rate FiO2 01/18/25 21:07 100/56 01/18/25 20:41 63 18 100 30 01/18/25 17:31 Mechanical Ventilator+ 01/18/25 16:30 97.5 97.5 Physical Exam Gen.: Patient lying in bed in medical ICU. Sedated, intubated on mechanical ventilator. Head: Normocephalic, atraumatic. Eyes: PERRLA. Ears: Normal external anatomy. Throat: Endotracheal tube and orogastric tube in place. Neck: Supple, trachea midline. Chest: Transmitted breath sounds bilaterally. Decreased air entry bilaterally. No wheezing. Bibasilar crackles. Cardiovascular: Positive S1, positive S2. Regular rate and rhythm. Abdomen: Positive bowel sounds in all 4 quadrants. Soft, nontender, nondistended. : Evans in place. Normal external genitalia. Rectal: Deferred. Skin: Warm, dry. Intact. Extremities: 2+ radial pulses bilaterally. No lower extremity edema. Neuro: Sedated. Labs/Diagnostic Data Labs Test 01/18/25 17:01 01/18/25 06:08 01/18/25 03:11 01/16/25 04:29 Range/Units POC Glucose 128 H 70-106 mg/dl Blood Gas Specimen Type Arterial Blood Gas Sample Site Right radial Blood Gas Patient Temperature 37.0 Arterial Blood Date Drawn [id number] Arterial Blood pH 7.541 H 7.350-7.450 Arterial Blood Partial Pressure CO2 25.7 L 32.0-45.0 mmHg Arterial Blood Partial Pressure O2 116.0 H 83.0-108.0 mmHg Arterial Blood HCO3 21.5 21.0-28.0 mmol/L Arterial Blood Oxygen Saturation 98.3 H 94.0-98.0 % Arterial Blood Base Excess 0.1 -2.0-3.0 mmol/L Arterial Blood Oxyhemoglobin 97.4 94.0-98.0 % Arterial Blood Carboxyhemoglobin 0.6 0.5-1.5 % Arterial Blood Methemoglobin 0.3 0.0-1.5 % [place] Test Modified Blood Gas Total Hemoglobin 11.70 L 12.0-16.0 g/dL Blood Gas Set Respiration Rate 24.0 Blood Gas Modality Vent - ac FiO2 % 30.0 Blood Gas Tidal Volume 400.0 Blood Gas PEEP or CPAP 5.0 White Blood Count 7.2 # 4.4-10.8 10^3/uL Red Blood Count 3.71 L 4.0-5.20 10^6/uL Hemoglobin 11.2 L 12.2-16.2 g/dL Hematocrit 33.6 #L 36.0-46.0 % Mean Corpuscular Volume 90.4 80.0-100.0 fL Mean Corpuscular Hemoglobin 30.0 28.0-32.0 pg Mean Corpuscular Hemoglobin Concent 33.2 32.0-36.0 g/dL Red Cell Distribution Width 16.1 H 11.8-14.3 % Platelet Count 277 140-450 10^3/uL Mean Platelet Volume 9.9 6.9-10.8 fL Neutrophils (%) (Auto) 90.0 H 37.0-80.0 % Lymphocytes (%) (Auto) 7.2 L 10.0-50.0 % Monocytes (%) (Auto) 2.6 0.0-12.0 % Eosinophils (%) (Auto) 0.0 0.0-7.0 % Basophils (%) (Auto) 0.2 0.0-2.0 % Neutrophils # (Auto) 6.5 1.6-8.6 10 ^3/uL Lymphocytes # (Auto) 0.5 0.4-5.4 10 ^3/uL Monocytes # (Auto) 0.2 0-1.3 10 ^3/uL Eosinophils # (Auto) 0 0-0.8 10 ^3/uL Basophils # (Auto) 0 0-0.2 10 ^3/uL Nucleated Red Blood Cells 0.1 % D-Dimer, Quantitative 0.30 0.0-0.49 mg/L FEU Sodium Level 147 H 136-145 mmol/L Potassium Level 3.5 3.5-5.1 mmol/L Chloride Level 112 H 98-107 mmol/L Carbon Dioxide Level 25 20-31 mmol/L Anion Gap 10 5-15 Blood Urea Nitrogen 13 9-23 mg/dL Creatinine 0.61 0.550-1.02 mg/dL Glomerular Filtration Rate Calc 99 >90 mL/min BUN/Creatinine Ratio 21.3 H 10.0-20.0 Serum Glucose 113 H 74-106 mg/dL Calcium Level 8.9 8.7-10.4 mg/dL Total Bilirubin 0.2 0.2-1.0 mg/dL Aspartate Amino Transferase (AST) 9 L 13-40 U/L Alanine Aminotransferase (ALT) 10 7-40 U/L Alkaline Phosphatase 63 46-116 U/L Total Protein 5.7 5.7-8.2 g/dL Albumin 3.4 3.2-4.8 g/dL Test 01/15/25 10:34 01/15/25 08:25 01/15/25 06:39 01/15/25 05:50 Range/Units Prothrombin Time 10.6 9.3-11.8 sec Prothrombin Time INR 1.00 0.9-1.15 Activated Partial Thromboplast Time 26.7 24.5-34.5 SEC Blood Gas Critical Value Read Back Yes Blood Gas Notified Whom Md. hilary clayton Blood Gas Notified Time [id number] Blood Gas Notified By Rt enedelia cerna Troponin I High Sensitivity 10 </=34 ng/L Urine Color Light-yellow Yellow Urine Clarity Clear Clear Urine pH 5.5 5.0-9.0 Urine Specific [place] 1.021 1.001-1.035 Urine Protein Negative Negative Urine Ketones Negative Negative Urine Blood Negative Negative /uL Urine Nitrite Negative Negative Urine Bilirubin Negative Negative Urine Urobilinogen Normal Negative mg/dL Urine Leukocyte Esterase Negative Negative /uL Urine RBC <1 0 - 4 /hpf Urine Microscopic WBC 1 0-5 /HPF Urine Squamous Epithelial Cells None seen <5 /hpf Urine Bacteria None seen None Seen /hpf Urine Mucus Few None Seen Urine Glucose Normal Normal mg/dL Urine Opiates Screen Pos NEGATIVE Urine Fentanyl Screen Neg NEGATIVE Urine Barbiturates Screen Neg NEGATIVE Urine Phencyclidine Screen Neg NEGATIVE Urine Amphetamines Screen Neg NEGATIVE Urine Benzodiazepines Screen Neg NEGATIVE Urine Cocaine Screen Pos NEGATIVE Urine Cannabinoids Screen Neg NEGATIVE Test 01/15/25 04:15 01/15/25 03:34 Range/Units Influenza Type A Antigen Positive Negative Influenza Type B Antigen Positive Negative SARS-CoV-2 Antigen (Rapid) Positive NEGATIVE Erythrocyte Sedimentation Rate 12 0-20 mm/hr Lactic Acid Level 0.9 0.4-2.0 mmol/L C-Reactive Protein High Sensitivity 0.07 <1.0 mg/dL B-Type Natriuretic Peptide 45.60 0-100 pg/mL Plasma/Serum Blood Alcohol < 3.0 <10 mg/dL Microbiology Date/Time Source Procedure Growth Status 01/15/25 10:43 Urine - [place] Urine Culture - Final Complete 01/15/25 06:25 Nose MRSA Screen - Final Complete 01/15/25 04:20 Blood Blood Culture - Preliminary NO GROWTH AFTER 72 HOURS OF INCUBATION. Resulted Assessment Impression: Acute hypoxic respiratory failure On mechanical ventilator COVID-19 infection Influenza A and B Acute COPD exacerbation Substance abuse. Hx of nicotine dependence Pulmonary hypertension, moderately severe (Echo 11/2024 - LVEF 65%, moderate dilated RV and RA, RVSP 57 mmHg) Plan: s/p intubation on mechanical ventilator. ABG reviewed, notable for alkalemia. On AC mode; RR 24, VT 400, PEEP 5, FIo2 30% Titrate FIO2 to keep O2 saturation above 90%. VAP bundle. Daily ABG and CXR while intubated Sedate for ventilator synchrony Continue antibiotics. Follow up cultures. Continue Tamiflu course. Pressors as necessary for hemodynamic support Titrate to keep mean arterial pressure greater than 65 mmHg. Currently off pressors Monitor renal function Monitor electrolytes. Supplement as necessary. Monitor ins and outs. Maintain euvolemia. Recommend cessation of substance use. GI prophylaxis. DVT prophylaxis. Prognosis: Poor given patient's multiple co-morbidities. Condition: Critical Rest of plan per hospitalist and other consultants. A total of 35 minutes of critical care time was spent reviewing the patient re cord, examining the patient, making a diagnostic and therapeutic plan, discussing this plan with the medical personnel, following up on diagnostic studies and following the patient for clinical stability excluding any and all procedures. At least 50% of this time was spent in direct, [id number] contact. Thank you, ASHLEE Weiner, for allowing me to participate in this patient's care. Further recommendations will depend on the patient's clinical course. Please do not hesitate to contact me if you have any questions or concerns. This medical document was created using an electronic medical record system with [employer] dictation system. Although these documentations are being carefully reviewed, there may still be some phonetic and typographical changes. The errors are purely typographical, due to imperfection on the software program, and do not reflect any compromise in the patient's medical care. Plan discussed with: Other (RN/) Date of Service: Jan 17, 2025 Billing Provider: SYLVIE RAMIREZ MD Common Visit Codes: [id number] CARE 30-74 MIN SYLVIE RAMIREZ MD Jan 18, 2025 22:23
--- NOTE | 2025-01-18 23:17 | DVHPN2 ---
Subjective DOS: 01/18/2025 Patient seen and examined at bedside. Sedated, intubated on mechanical ventilator. Overnight events reviewed. Reviewed: Care Plan, H&P, Labs, Medications, Previous Orders, Radiology Changes from previous H/P or p: No Changes Musculoskeletal: arm pain Objective Vitals Vital Signs Date Time Temp Pulse Resp B/P (MAP) Pulse Ox O2 Delivery O2 Flow Rate FiO2 01/18/25 22:51 62 18 100/56 (71) 100 30 01/18/25 20:00 Mechanical Ventilator+ 01/18/25 16:30 97.5 97.5 Intake/Output Intake and Output 01/18/25 07:00 Intake Total 1920.16 ml Output Total 4450 ml Balance -2529.84 ml Intake Oral 50 ml IV Total 1150.16 ml Tube Feeding 720 ml Output Urine Total 4450 ml Stool Total 0 ml General Appearance: Other (ON VENT) HEENT: Atraumatic Lungs: Other (FEW CRACKLES B LUNGS) Cardiovascular: Regular rate Abdomen: Normal bowel sounds, Soft Extremities: No edema Medications Current Medications Medications Dose Ordered Sig/Aida Route Start Time Stop Time Status Last Admin Dose Admin Levalbuterol HCl 1.25 mg Q6HR NEB 01/15/25 03:45 01/18/25 18:18 1.25 MG Piperacillin Sod/ Tazobactam Sod 100 ml @ 25 mls/hr Q8H IV 01/15/25 12:00 01/18/25 19:41 25 MLS/HR Midazolam HCl 50 ml @ 1 mls/hr Q24H IV 01/15/25 04:45 01/18/25 11:44 1 MLS/HR Fentanyl Citrate 250 ml @ 2.5 mls/hr Q24H IV 01/15/25 04:45 01/18/25 17:23 15 MLS/HR Ipratropium [place] 0.5 mg Q6HWA NEB 01/15/25 12:00 01/18/25 18:18 0.5 MG Enoxaparin Sodium 40 mg DAILY SC 01/15/25 10:00 01/18/25 07:58 40 MG Propofol 100 ml @ 1.62 mls/hr Q24H IV 01/15/25 06:30 01/18/25 21:07 6.48 MLS/HR Norepinephrine Bitartrate 250 ml @ 3.75 mls/hr Q24H IV 01/15/25 06:45 01/15/25 07:00 3.75 MLS/HR Remdesivir 100 mg/ Sodium Chloride 250 ml @ 250 mls/hr DAILY@1500 IV 01/16/25 15:00 01/17/25 15:59 Cancel Pantoprazole Sodium 40 mg DAILY IV 01/16/25 10:00 01/18/25 07:50 40 MG Diagnostic Test (Pha) 1 strip Q6HR 01/16/25 06:00 01/18/25 17:04 1 STRIP Insulin Human Regular Q6HR SC 01/16/25 06:00 01/16/25 05:51 3 UNITS Dextrose 50 ml UD PRN IV 01/16/25 00:30 Methylprednisolone Sodium Succinate 40 mg Q12HR IV 01/16/25 22:00 01/18/25 07:58 40 MG Baclofen 5 mg Q8HP PRN PO 01/16/25 18:00 UNV Amlodipine Besylate 10 mg DAILY PO 01/17/25 10:00 UNV Hydrochlorothiazide 50 mg DAILY PO 01/17/25 10:00 UNV Losartan Potassium 50 mg DAILY PO 01/17/25 10:00 UNV Enteral Nutritional Formula 1,000 ml 50ML/HR GT 01/17/25 15:45 01/17/25 23:42 1,000 ML Oseltamivir Phosphate 30 mg Q12HR PO 01/18/25 22:00 01/20/25 21:59 Laboratory Results Laboratory Tests 01/18/25 03:11 Chemistry Test 01/18/25 03:11 Calcium Level 8.9 mg/dL (8.7-10.4) Coagulation Test 01/18/25 03:11 D-Dimer, Quantitative 0.30 mg/L FEU (0.0-0.49) Urinalysis Test 01/15/25 05:50 Urine Color Light-yellow (Yellow) Urine Clarity Clear (Clear) Urine pH 5.5 (5.0-9.0) Urine Specific [place] 1.021 (1.001-1.035) Urine Protein Negative (Negative) Urine Ketones Negative (Negative) Urine Blood Negative /uL (Negative) Urine Nitrite Negative (Negative) Urine Bilirubin Negative (Negative) Urine Urobilinogen Normal mg/dL (Negative) Urine Leukocyte Esterase Negative /uL (Negative) Urine RBC <1 /hpf (0 - 4) Urine Microscopic WBC 1 /HPF (0-5) Urine Squamous Epithelial Cells None seen /hpf (<5) Urine Bacteria None seen /hpf (None Seen) Urine Mucus Few (None Seen) Urine Glucose Normal mg/dL (Normal) Blood Gas Results Test 01/18/25 06:08 Arterial Blood pH 7.541 (7.350-7.450) FiO2 % 30.0 Microbiology Microbiology Date/Time Source Procedure Growth Status 01/15/25 10:43 Urine - [place] Urine Culture - Final Complete 01/15/25 06:25 Nose MRSA Screen - Final Complete 01/15/25 04:20 Blood Blood Culture - Preliminary NO GROWTH AFTER 72 HOURS OF INCUBATION. Resulted Assessment/Plan Assessment/Plan Impression: Acute hypoxic respiratory failure On mechanical ventilator COVID-19 infection Influenza A and B Acute COPD exacerbation Substance abuse. Hx of nicotine dependence Pulmonary hypertension, moderately severe (Echo 11/2024 - LVEF 65%, moderate dilated RV and RA, RVSP 57 mmHg) Events: Remains on vent support ABG reviewed, notable for alkalemia On AC mode; RR 24, VT 400, PEEP 5, FIo2 30% RR was tapered to 18 Taper FiO2 as tolerated CXR reviewed, notable for trace left pleural effusion. Devices in place. Sedated on Propofol, Versed. On Fentanyl drip Patient underwent central line placement. Taper sedation as tolerated CPAP trial in AM. CPAP with PS 8, PEEP 5. Labs and imaging reviewed. Rest of plan as noted below. Plan: s/p intubation on mechanical ventilator. On AC mode; RR 24-->18, VT 400, PEEP 5, FIo2 30% Titrate FIO2 to keep O2 saturation above 90%. VAP bundle. Daily ABG and CXR while intubated Sedate for ventilator synchrony Continue antibiotics. Follow up cultures. Continue Tamiflu course. Pressors as necessary for hemodynamic support Titrate to keep mean arterial pressure greater than 65 mmHg. Currently off pressors Monitor renal function Monitor electrolytes. Supplement as necessary. Monitor ins and outs. Maintain euvolemia. Recommend cessation of substance use. GI prophylaxis. DVT prophylaxis. Prognosis: Poor given patient's multiple co-morbidities. Condition: Critical Rest of plan per hospitalist and other consultants. A total of 35 minutes of critical care time was spent reviewing the patient record, examining the patient, making a diagnostic and therapeutic plan, discussing this plan with the medical personnel, following up on diagnostic studies and following the patient for clinical stability excluding any and all procedures. At least 50% of this time was spent in direct, [id number] contact. Thank you, ASHLEE Weiner, for allowing me to participate in this patient's care. Further recommendations will depend on the patient's clinical course. Please do not hesitate to contact me if you have any questions or concerns. This medical document was created using an electronic medical record system with [employer] dictation system. Although these documentations are being carefully reviewed, there may still be some phonetic and typographical changes. The errors are purely typographical, due to imperfection on the software program, and do not reflect any compromise in the patient's medical care. Plan discussed with: Other (NAJMA Pyle) My Orders Orders - SYLVIE RAMIREZ MD Procedure Category Date Status Time Ventilator Orders RT 01/18/25 Transmitted 14:06 Abg W/ Co-Ox RT 01/19/25 Logged 05:00 Date of Service: Jan 18, 2025 Billing Provider: SYLVIE RAMIREZ MD Common Visit Codes: [id number] INP/OBS CARE(HIGH), [id number] CARE 30-74 MIN SYLVIE RAMIREZ MD Jan 18, 2025 23:17
[2025-01-18] MEDS: OSELTAMIVIR 30 MG CAP PO SCH (23:29)
[2025-01-19] VITALS (108 sets, daily range): BP systolic 101–216; BP diastolic 28–110; PULSE 60–116; RESP 11–41; TEMP 97.5–99.3; O2SAT 78–100
--- NOTE | 2025-01-19 04:45 | DVH ---
CHEST RADIOGRAPH Indication: fu Technique: Single frontal view of the chest was obtained COMPARISON: XY CHEST PORTABLE on DOS: 01/18/25, XY CHEST XRAY 1 VIEW on DOS: 01/17/25, XY CHEST XRAY 1 VIEW on DOS: 01/16/25, CT CT ANGIO CHEST CONTRAST on DOS: 01/15/25, XY CHEST PORTABLE on DOS: 01/15/25 FINDINGS: Lines and Tubes: Endotracheal tube tip projects approximately 4.5 cm above the level of the pedro. Enteric catheter terminates within the gastric lumen. Lungs: Clear Pleura: No effusion. No pneumothorax. Cardiomediastinal contours: Unremarkable Bones: Unremarkable IMPRESSION: 1. Endotracheal tube and enteric catheter in appropriate position. 2. No acute cardiopulmonary process.
[2025-01-19 05:33] LABS: Albumin 3.3 g/dL (3.2-4.8); Alkaline Phosphatase 53 U/L (46-116); Anion Gap 8 (5-15); BUN/Creatinine Ratio 21.7 (10.0-20.0); Blood Urea Nitrogen 13 mg/dL (9-23); Carbon Dioxide 28 mmol/L (20-31); Potassium 3.8 mmol/L (3.5-5.1)
[2025-01-19 05:41] LABS: Alanine Aminotransferase < 9 U/L (7-40); Bilirubin, Total 0.2 mg/dL (0.2-1.0); Calcium 8.5 mg/dL (8.7-10.4); Chloride 110 mmol/L (98-107); Glucose 133 mg/dL (74-106); Sodium 146 mmol/L (136-145); Total Protein 5.3 g/dL (5.7-8.2)
[2025-01-19 06:21] LABS: Hematocrit 31.4 % (36.0-46.0); Hemoglobin 10.5 g/dL (12.2-16.2); Mean Corpuscular Hemoglobin 30.2 pg (28.0-32.0); Mean Corpuscular Volume 90.6 fL (80.0-100.0); Nucleated Red Blood Cells % 0.1 %
[2025-01-19 06:37] LABS: Base Excess 0.1 mmol/L (-2.0-3.0)
--- NOTE | 2025-01-19 08:57 | DVHPN2 ---
Subjective Patient chemically sedated Reviewed: Care Plan, H&P, Labs, Medications, Previous Orders, Radiology Changes from previous H/P or p: No Changes Objective Vitals Vital Signs Date Time Temp Pulse Resp B/P (MAP) Pulse Ox O2 Delivery O2 Flow Rate FiO2 01/19/25 08:00 66 18 118/66 (83) 100 01/19/25 07:43 30 01/19/25 06:00 Mechanical Ventilator+ 01/19/25 04:00 97.9 97.9 Intake/Output Intake and Output 01/19/25 06:59 Intake Total 982.24 ml Output Total 850 ml Balance 132.24 ml Intake Oral 75 ml IV Total 677.24 ml Tube Feeding 230 ml Output Urine Total 850 ml Stool Total 0 ml General Appearance: mild distress, Other (ON VENT) HEENT: Atraumatic, PERRLA Lungs: Other (FEW CRACKLES B LUNGS) Cardiovascular: Regular rate, Normal S1, Normal S2 Abdomen: Normal bowel sounds, Soft Genitourinary: No Apparent Abnormalities (Evans catheter) Musculoskeletal: Other (Unable to assess) Extremities: No edema Skin: Dry, Intact Psych/Mental Status: Other (Chemically sedated) Medications Current Medications Medications Dose Ordered Sig/Aida Route Start Time Stop Time Status Last Admin Dose Admin Levalbuterol HCl 1.[address] [facility] 01/15/25 03:45 01/19/25 05:53 1.25 MG Piperacillin Sod/ Tazobactam Sod 100 ml @ 25 mls/hr Q8H IV 01/15/25 12:00 01/19/25 05:36 25 MLS/HR Midazolam HCl 50 ml @ 1 mls/hr Q24H IV 01/15/25 04:45 01/19/25 00:04 2 MLS/HR Fentanyl Citrate 250 ml @ 2.5 mls/hr Q24H IV 01/15/25 04:45 01/18/25 17:23 15 MLS/HR Ipratropium [place] 0.[address] [facility] 01/15/25 12:00 01/19/25 05:53 0.5 MG Enoxaparin Sodium 40 mg DAILY SC 01/15/25 10:00 01/18/25 07:58 40 MG Propofol 100 ml @ 1.62 mls/hr Q24H IV 01/15/25 06:30 01/18/25 21:07 6.48 MLS/HR Norepinephrine Bitartrate 250 ml @ 3.75 mls/hr Q24H IV 01/15/25 06:45 01/15/25 07:00 3.75 MLS/HR Remdesivir 100 mg/ Sodium Chloride 250 ml @ 250 mls/hr DAILY@1500 IV 01/16/25 15:00 01/17/25 15:59 Cancel Pantoprazole Sodium 40 mg DAILY IV 01/16/25 10:00 01/18/25 07:50 40 MG Diagnostic Test (Pha) 1 strip Q6HR 01/16/25 06:00 01/19/25 06:46 1 STRIP Insulin Human Regular Q6HR SC 01/16/25 06:00 01/16/25 05:51 3 UNITS Dextrose 50 ml UD PRN IV 01/16/25 00:30 Methylprednisolone Sodium Succinate 40 mg Q12HR IV 01/16/25 22:00 01/18/25 23:29 40 MG Baclofen 5 mg Q8HP PRN PO 01/16/25 18:00 UNV Amlodipine Besylate 10 mg DAILY PO 01/17/25 10:00 UNV Hydrochlorothiazide 50 mg DAILY PO 01/17/25 10:00 UNV Losartan Potassium 50 mg DAILY PO 01/17/25 10:00 UNV Enteral Nutritional Formula 1,000 ml 50ML/HR GT 01/17/25 15:45 01/17/25 23:42 1,000 ML Oseltamivir Phosphate 30 mg Q12HR PO 01/18/25 22:00 01/20/25 21:59 01/18/25 23:29 30 MG Laboratory Results Laboratory Tests 01/19/25 04:47 Chemistry Test 01/19/25 04:47 Albumin 3.3 g/dL (3.2-4.8) Calcium Level 8.5 mg/dL (8.7-10.4) L Total Protein 5.3 g/dL (5.7-8.2) L LFT Test 01/19/25 04:47 Alanine Aminotransferase (ALT) < 9 U/L (7-40) Alkaline Phosphatase 53 U/L (46-116) Aspartate Amino Transferase (AST) 13 U/L (13-40) Total Bilirubin 0.2 mg/dL (0.2-1.0) Urinalysis Test 01/15/25 05:50 Urine Color Light-yellow (Yellow) Urine Clarity Clear (Clear) Urine pH 5.5 (5.0-9.0) Urine Specific [place] 1.021 (1.001-1.035) Urine Protein Negative (Negative) Urine Ketones Negative (Negative) Urine Blood Negative /uL (Negative) Urine Nitrite Negative (Negative) Urine Bilirubin Negative (Negative) Urine Urobilinogen Normal mg/dL (Negative) Urine Leukocyte Esterase Negative /uL (Negative) Urine RBC <1 /hpf (0 - 4) Urine Microscopic WBC 1 /HPF (0-5) Urine Squamous Epithelial Cells None seen /hpf (<5) Urine Bacteria None seen /hpf (None Seen) Urine Mucus Few (None Seen) Urine Glucose Normal mg/dL (Normal) Blood Gas Results Test 01/19/25 06:10 Arterial Blood pH 7.401 (7.350-7.450) FiO2 % 30.0 Microbiology Microbiology Date/Time Source Procedure Growth Status 01/15/25 10:43 Urine - [place] Urine Culture - Final Complete 01/15/25 06:25 Nose MRSA Screen - Final Complete 01/15/25 04:20 Blood Blood Culture - Preliminary NO GROWTH AFTER 72 HOURS OF INCUBATION. Resulted Labs and/or images reviewed: Labs reviewed by me, Image(s) reviewed by me Assessment/Plan Assessment/Plan Impression: -acute hypoxic respiratory failure, now on mechanical ventilation with failure of noninvasive positive pressure ventilation -COVID-19 -influenza a and B -COPD with exacerbation -substance abuse with cocaine -accelerated hypertension, now hypotensive probably secondary to sedation -rule out PE Plan: Events: No events overnight -weaned off sedation, CPAP trial once appropriate -continue Tamiflu -continue tube feeding -continue sedation with propofol, fentanyl, Versed -decrease Solu-Medrol to 40 mg daily -PUD, DVT prophylaxis -repeat labs and chest x-ray in a.m. -norepinephrine drip to keep map greater than 65 Critical care time spent with patient discussing and formulating plan of care: 40 minutes. This does not include time spent performing procedures. This medical document was created using an electronic medical record system with [employer] system. Although this document has been carefully reviewed, there may still be some phonetic and typographical errors. These areas are purely typographical due to imperfections of the software programs, and do not reflect any compromise in the patient's medical care. Plan discussed with: Patient, Other (RN) My Orders Orders - ISERRA MCCOLULM NP Procedure Category Date Status Time Cpap/Sed Vacation Med ORDERS 01/19/25 Transmitted Weaning 08:16 Cpap Trial For Am ORDERS 01/19/25 Transmitted 08:16 Methylprednisolone PHA 01/19/25 Transmitted Sod Succ (Solu Medrol 10:00 Ceftriaxone Ivpb PHA 01/19/25 Transmitted Rocephin 09:00 Date of Service: Jan 19, 2025 Billing Provider: SIERRA MCCOLLUM NP Common Visit Codes: [id number] CARE 30-74 MIN SIERRA MCCOLLUM NP Jan 19, 2025 08:57
[2025-01-19] MEDS: methylPREDNISolone SOD SUCC 40 MG/ML VL IV SCH (09:30)
[2025-01-19] MEDS: hydrALAZINE HCL 20 MG/ML VL IV PRN (17:33)
[2025-01-19] MEDS ORDERED: hydrALAZINE HCL 20 MG/ML VL IV SCH (18:00)
--- NOTE | 2025-01-19 21:45 | DVHPN2 ---
Subjective DOS: 01/19/2025 Patient seen and examined at bedside. Sedated, intubated on mechanical ventilator. Overnight events reviewed. Reviewed: Care Plan, H&P, Labs, Medications, Previous Orders, Radiology Changes from previous H/P or p: No Changes Musculoskeletal: arm pain Objective Vitals Vital Signs Date Time Temp Pulse Resp B/P (MAP) Pulse Ox O2 Delivery O2 Flow Rate FiO2 01/19/25 20:01 74 19 154/71 (98) 100 30 01/19/25 20:00 Mechanical Ventilator+ 01/19/25 16:00 97.5 97.5 Intake/Output Intake and Output 01/19/25 07:00 Intake Total 954.57 ml Output Total 850 ml Balance 104.57 ml Intake Oral 75 ml IV Total 649.57 ml Tube Feeding 230 ml Output Urine Total 850 ml Stool Total 0 ml General Appearance: Other (ON VENT) HEENT: Atraumatic Lungs: Other (FEW CRACKLES B LUNGS) Cardiovascular: Regular rate Abdomen: Normal bowel sounds, Soft Genitourinary: No Apparent Abnormalities ([place] catheter) Musculoskeletal: Other (Unable to assess) Extremities: No edema Skin: Dry, Intact Psych/Mental Status: Other (Chemically sedated) Medications Current Medications Medications Dose Ordered Sig/Aida Route Start Time Stop Time Status Last Admin Dose Admin Levalbuterol HCl 1.25 mg Q6HR [facility] 01/15/25 03:45 01/19/25 18:51 1.25 MG Midazolam HCl 50 ml @ 1 mls/hr Q24H IV 01/15/25 04:45 01/19/25 00:04 2 MLS/HR Fentanyl Citrate 250 ml @ 2.5 mls/hr Q24H IV 01/15/25 04:45 01/19/25 19:36 12.5 MLS/HR Ipratropium [place] 0.5 mg Q6HWA [facility] 01/15/25 12:00 01/19/25 18:51 0.5 MG Enoxaparin Sodium 40 mg DAILY SC 01/15/25 10:00 01/19/25 09:31 40 MG Propofol 100 ml @ 1.62 mls/hr Q24H IV 01/15/25 06:30 01/19/25 19:37 4.86 MLS/HR Norepinephrine Bitartrate 250 ml @ 3.75 mls/hr Q24H IV 01/15/25 06:45 01/15/25 07:00 3.75 MLS/HR Remdesivir 100 mg/ Sodium Chloride 250 ml @ 250 mls/hr DAILY@1500 IV 01/16/25 15:00 01/17/25 15:59 Cancel Pantoprazole Sodium 40 mg DAILY IV 01/16/25 10:00 01/19/25 09:30 40 MG Diagnostic Test (Pha) 1 strip Q6HR 01/16/25 06:00 01/19/25 19:34 1 STRIP Insulin Human Regular Q6HR [facility] 01/16/25 06:00 01/16/25 05:51 3 UNITS Dextrose 50 ml UD PRN IV 01/16/25 00:30 Baclofen 5 mg Q8HP PRN PO 01/16/25 18:00 UNV Amlodipine Besylate 10 mg DAILY PO 01/17/25 10:00 UNV Hydrochlorothiazide 50 mg DAILY PO 01/17/25 10:00 UNV Losartan Potassium 50 mg DAILY PO 01/17/25 10:00 UNV Enteral Nutritional Formula 1,000 ml 50ML/HR GT 01/17/25 15:45 01/17/25 23:42 1,000 ML Oseltamivir Phosphate 30 mg Q12HR PO 01/18/25 22:00 01/20/25 21:59 01/19/25 09:31 30 MG Methylprednisolone Sodium Succinate 40 mg DAILY IV 01/19/25 10:00 01/19/25 09:30 40 MG Ceftriaxone Sodium 50 ml @ 100 mls/hr DAILY@09 IV 01/19/25 09:00 01/19/25 09:30 100 MLS/HR Hydralazine HCl 10 mg Q6HPRN PRN IV 01/19/25 16:45 01/19/25 17:33 10 MG Quetiapine Fumarate 50 mg BID PO 01/19/25 22:00 Laboratory Results Laboratory Tests 01/19/25 04:47 Chemistry Test 01/19/25 04:47 Albumin 3.3 g/dL (3.2-4.8) Calcium Level 8.5 mg/dL (8.7-10.4) L Total Protein 5.3 g/dL (5.7-8.2) L LFT Test 01/19/25 04:47 Alanine Aminotransferase (ALT) < 9 U/L (7-40) Alkaline Phosphatase 53 U/L (46-116) Aspartate Amino Transferase (AST) 13 U/L (13-40) Total Bilirubin 0.2 mg/dL (0.2-1.0) Urinalysis Test 01/15/25 05:50 Urine Color Light-yellow (Yellow) Urine Clarity Clear (Clear) Urine pH 5.5 (5.0-9.0) Urine Specific [place] 1.021 (1.001-1.035) Urine Protein Negative (Negative) Urine Ketones Negative (Negative) Urine Blood Negative /uL (Negative) Urine Nitrite Negative (Negative) Urine Bilirubin Negative (Negative) Urine Urobilinogen Normal mg/dL (Negative) Urine Leukocyte Esterase Negative /uL (Negative) Urine RBC <1 /hpf (0 - 4) Urine Microscopic WBC 1 /HPF (0-5) Urine Squamous Epithelial Cells None seen /hpf (<5) Urine Bacteria None seen /hpf (None Seen) Urine Mucus Few (None Seen) Urine Glucose Normal mg/dL (Normal) Blood Gas Results Test 01/19/25 06:10 Arterial Blood pH 7.401 (7.350-7.450) FiO2 % 30.0 Microbiology Microbiology Date/Time Source Procedure Growth Status 01/15/25 10:43 Urine - [place] Urine Culture - Final Complete 01/15/25 06:25 Nose MRSA Screen - Final Complete 01/15/25 04:20 Blood Blood Culture - Preliminary NO GROWTH AFTER 72 HOURS OF INCUBATION. Resulted Assessment/Plan Assessment/Plan Impression: Acute hypoxic respiratory failure On mechanical ventilator COVID-19 infection Influenza A and B Acute COPD exacerbation Substance abuse. Hx of nicotine dependence Pulmonary hypertension, moderately severe (Echo 11/2024 - LVEF 65%, moderate dilated RV and RA, RVSP 57 mmHg) Events: Remains on vent support On AC mode; RR 18, VT 400, PEEP 5, FIo2 30% Taper FiO2 as tolerated ABG reviewed, compensated. CXR reviewed, no acute cardiopulmonary process. Devices in place. Sedated on Propofol On Fentanyl drip CPAP trial Start Seroquel 50 mg IVP q.12 hours Continue antibiotics Continue Tamiflu course. Continue bronchodilators IV steroids Taper sedation as tolerated Plan for CPAP in AM. CPAP with PS 8, PEEP 5. Patient is s/p central line placement. Labs and imaging reviewed. Rest of plan as noted below. Plan: s/p intubation on mechanical ventilator. On AC mode; RR 18, VT 400, PEEP 5, FIo2 30% Titrate FIO2 to keep O2 saturation above 90%. VAP bundle. Daily ABG and CXR while intubated Continue antibiotics. Follow up cultures. Continue Tamiflu course. Continue bronchodilators IV steroids Pressors as necessary for hemodynamic support Titrate to keep mean arterial pressure greater than 65 mmHg. Patient is off pressors Protonix for GI ppx Monitor renal function Monitor electrolytes. Supplement as necessary. Monitor ins and outs. Maintain euvolemia. Recommend cessation of substance use. GI prophylaxis. DVT prophylaxis. Prognosis: Poor given patient's multiple co-morbidities. Condition: Critical Rest of plan per hospitalist and other consultants. A total of 35 minutes of critical care time was spent reviewing the patient record, examining the patient, making a diagnostic and therapeutic plan, discussing this plan with the medical personnel, following up on diagnostic studies and following the patient for clinical stability excluding any and all procedures. At least 50% of this time was spent in direct, [id number] contact. Thank you, ASHLEE Weiner, for allowing me to participate in this patient's care. Further recommendations will depend on the patient's clinical course. Please do not hesitate to contact me if you have any questions or concerns. This medical document was created using an electronic medical record system with [employer] dictation system. Although these documentations are being carefully reviewed, there may still be some phonetic and typographical changes. The errors are purely typographical, due to imperfection on the software program, and do not reflect any compromise in the patient's medical care. Plan discussed with: Other (NAJMA Schaefer) My Orders Orders - SYLVIE RAMIREZ MD Procedure Category Date Status Time Quetiapine Fumarate PHA 01/19/25 In Process Tablet (Seroquel Tab 22:00 Chest Portable XY 01/20/25 Logged 04:00 Date of Service: Jan 19, 2025 Billing Provider: SYLVIE RAMIREZ MD Common Visit Codes: [id number] INP/OBS CARE(HIGH), [id number] CARE 30-74 MIN SYLVIE RAMIREZ MD Jan 19, 2025 21:45
[2025-01-20] VITALS (105 sets, daily range): BP systolic 86–184; BP diastolic 48–127; PULSE 58–121; RESP 12–28; TEMP 97.7–99.5; O2SAT 84–100
[2025-01-20 05:06] LABS: Hematocrit 34.8 % (36.0-46.0); Hemoglobin 11.4 g/dL (12.2-16.2); Mean Corpuscular Hemoglobin 29.7 pg (28.0-32.0); Mean Corpuscular Volume 90.9 fL (80.0-100.0); Nucleated Red Blood Cells % 0.0 %
[2025-01-20 05:14] LABS: Chloride 106 mmol/L (98-107); Sodium 143 mmol/L (136-145)
[2025-01-20 05:15] LABS: Anion Gap 9 (5-15); Calcium 8.8 mg/dL (8.7-10.4); Carbon Dioxide 28 mmol/L (20-31)
[2025-01-20 05:20] LABS: BUN/Creatinine Ratio 22.8 (10.0-20.0); Blood Urea Nitrogen 13 mg/dL (9-23); Glucose 79 mg/dL (74-106)
[2025-01-20 05:26] LABS: Potassium 3.4 mmol/L (3.5-5.1)
--- NOTE | 2025-01-20 05:29 | DVH ---
CHEST RADIOGRAPH Indication: ET intubation Technique: Single frontal view of the chest was obtained COMPARISON: XY CHEST PORTABLE on DOS: 01/19/25, XY CHEST PORTABLE on DOS: 01/18/25, XY CHEST XRAY 1 VIE W on DOS: 01/17/25, XY CHEST XRAY 1 VIEW on DOS: 01/16/25, CT CT ANGIO CHEST CONTRAST on DOS: 01/15/25 FINDINGS: Lines and Tubes: Slight interval advancement of endotracheal tube such that the tip now projects appr oximately 3.4 cm above the level of the pedro. Enteric catheter unchanged. Lungs: Clear Pleura: No effusion. No pneumothorax. Cardiomediastinal contours: Unremarkable Bones: Unremarkable IMPRESSION: 1. Interval advancement of endotracheal tube such that the tip now projects approximately 3.4 cm abov e the level of the pedro. Enteric catheter unchanged. 2. No evidence of acute cardiopulmonary process.
[2025-01-20 06:56] LABS: Base Excess 1.5 mmol/L (-2.0-3.0)
[2025-01-20] MEDS: POTASSIUM CHL 20MEQ/100ML 100 ML IV ONE (09:19)
--- NOTE | 2025-01-20 09:19 | DVHPN2 ---
Subjective Patient awake and following some commands. Currently on Precedex infusion. Reviewed: Care Plan, H&P, Labs, Medications, Previous Orders, Radiology Changes from previous H/P or p: Changes General: Per HPI Musculoskeletal: arm pain Objective Vitals Vital Signs Date Time Temp Pulse Resp B/P (MAP) Pulse Ox O2 Delivery O2 Flow Rate FiO2 01/20/25 08:00 30 01/20/25 07:10 60 18 132/70 (90) 100 01/20/25 06:00 Mechanical Ventilator+ 01/20/25 04:00 99.4 99.4 Intake/Output Intake and Output 01/20/25 07:00 Intake Total 572.65 ml Output Total 900 ml Balance -327.35 ml Intake Oral 120 ml IV Total 422.65 ml Tube Feeding 30 ml Output Urine Total 900 ml General Appearance: Alert, moderate distress, Other (Encephalopathic) HEENT: Atraumatic Lungs: Other (FEW CRACKLES B LUNGS) Cardiovascular: Regular rate, Normal S1, Normal S2 Abdomen: Normal bowel sounds, Soft Genitourinary: No Apparent Abnormalities ([place] catheter) Musculoskeletal: Weak motor strength RUE, Weak motor strength LUE, Weak motor strength RLE, Weak motor strength LLE Extremities: No edema Neuro: Other (Unable to assess) Skin: Dry, Intact Psych/Mental Status: Other (Chemically sedated) Medications Current Medications Medications Dose Ordered Sig/Aida Route Start Time Stop Time Status Last Admin Dose Admin Levalbuterol HCl 1.25 mg Q6HR [facility] 01/15/25 03:45 01/20/25 06:00 1.25 MG Midazolam HCl 50 ml @ 1 mls/hr Q24H IV 01/15/25 04:45 01/19/25 00:04 2 MLS/HR Fentanyl Citrate 250 ml @ 2.5 mls/hr Q24H IV 01/15/25 04:45 01/19/25 19:36 12.5 MLS/HR Ipratropium [place] 0.5 mg Q6HWA [facility] 01/15/25 12:00 01/20/25 06:00 0.5 MG Enoxaparin Sodium 40 mg DAILY SC 01/15/25 10:00 01/19/25 09:31 40 MG Propofol 100 ml @ 1.62 mls/hr Q24H IV 01/15/25 06:30 01/20/25 04:18 9.72 MLS/HR Norepinephrine Bitartrate 250 ml @ 3.75 mls/hr Q24H IV 01/15/25 06:45 01/15/25 07:00 3.75 MLS/HR Remdesivir 100 mg/ Sodium Chloride 250 ml @ 250 mls/hr DAILY@1500 IV 01/16/25 15:00 01/17/25 15:59 Cancel Pantoprazole Sodium 40 mg DAILY IV 01/16/25 10:00 01/19/25 09:30 40 MG Diagnostic Test (Pha) 1 strip Q6HR 01/16/25 06:00 01/20/25 06:20 1 STRIP Insulin Human Regular Q6HR SC 01/16/25 06:00 01/16/25 05:51 3 UNITS Dextrose 50 ml UD PRN IV 01/16/25 00:30 Baclofen 5 mg Q8HP PRN PO 01/16/25 18:00 UNV Amlodipine Besylate 10 mg DAILY PO 01/17/25 10:00 UNV Hydrochlorothiazide 50 mg DAILY PO 01/17/25 10:00 UNV Losartan Potassium 50 mg DAILY PO 01/17/25 10:00 UNV Enteral Nutritional Formula 1,000 ml 50ML/HR GT 01/17/25 15:45 01/17/25 23:42 1,000 ML Oseltamivir Phosphate 30 mg Q12HR PO 01/18/25 22:00 01/20/25 21:59 01/19/25 21:50 30 MG Methylprednisolone Sodium Succinate 40 mg DAILY IV 01/19/25 10:00 01/19/25 09:30 40 MG Ceftriaxone Sodium 50 ml @ 100 mls/hr DAILY@09 IV 01/19/25 09:00 01/19/25 09:30 100 MLS/HR Hydralazine HCl 10 mg Q6HPRN PRN IV 01/19/25 16:45 01/19/25 17:33 10 MG Quetiapine Fumarate 50 mg BID PO 01/19/25 22:00 01/19/25 21:49 50 MG Laboratory Results Laboratory Tests 01/20/25 04:40 Chemistry Test 01/20/25 04:40 Calcium Level 8.8 mg/dL (8.7-10.4) Urinalysis Test 01/15/25 05:50 Urine Color Light-yellow (Yellow) Urine Clarity Clear (Clear) Urine pH 5.5 (5.0-9.0) Urine Specific [place] 1.021 (1.001-1.035) Urine Protein Negative (Negative) Urine Ketones Negative (Negative) Urine Blood Negative /uL (Negative) Urine Nitrite Negative (Negative) Urine Bilirubin Negative (Negative) Urine Urobilinogen Normal mg/dL (Negative) Urine Leukocyte Esterase Negative /uL (Negative) Urine RBC <1 /hpf (0 - 4) Urine Microscopic WBC 1 /HPF (0-5) Urine Squamous Epithelial Cells None seen /hpf (<5) Urine Bacteria None seen /hpf (None Seen) Urine Mucus Few (None Seen) Urine Glucose Normal mg/dL (Normal) Blood Gas Results Test 01/20/25 06:07 Arterial Blood pH 7.428 (7.350-7.450) FiO2 % 30.0 Microbiology Microbiology Date/Time Source Procedure Growth Status 01/15/25 10:43 Urine - [place] Urine Culture - Final Complete 01/15/25 06:25 Nose MRSA Screen - Final Complete 01/15/25 04:20 Blood Blood Culture - Final NO GROWTH AFTER 5 DAYS OF INCUBATION. Complete Labs and/or images reviewed: Labs reviewed by me, Image(s) reviewed by me Assessment/Plan Assessment/Plan Impression: -acute hypoxic respiratory failure, now on mechanical ventilation with failure of noninvasive positive pressure ventilation -COVID-19 -influenza a and B -COPD with exacerbation -substance abuse with cocaine -accelerated hypertension, now hypotensive probably secondary to sedation -rule out PE Plan: Events: No events overnight. Patient is more awake today. Proceed with spontaneous breathing trial. Continue Precedex infusion. -potassium replete -continue sedation with propofol, fentanyl, Versed -continue Solu-Medrol 40 mg IV daily -PUD, DVT prophylaxis -repeat labs and chest x-ray in a.m. -norepinephrine drip to keep map greater than 65 Critical care time spent with patient discussing and formulating plan of care: 40 minutes. This does not include time spent performing procedures. This medical document was created using an electronic medical record system with [employer] system. Although this document has been carefully reviewed, there may still be some phonetic and typographical errors. These areas are purely typographical due to imperfections of the software programs, and do not reflect any compromise in the patient's medical care. Plan discussed with: Patient, Other (RN) My Orders Orders - SIERRA MCCOLLUM NP Procedure Category Date Status Time Hydralazine Injection PHA 01/19/25 In Process (Apresoline Inject 16:45 Abg W/ Co-Ox RT 01/20/25 Logged 05:58 Cpap Trial For Am ORDERS 01/20/25 Transmitted 08:54 Cpap/Sed Vacation Med ORDERS 01/20/25 Transmitted Weaning 08:54 Basic Metabolic Panel LAB 01/21/25 Verified 04:00 Magnesium LAB 01/21/25 Verified 04:00 Complete Blood Count LAB 01/21/25 Verified 04:00 Date of Service: Jan 20, 2025 Billing Provider: SIERRA MCCOLLUM NP Common Visit Codes: [id number] CARE 30-74 MIN SIERRA MCCOLLUM NP Jan 20, 2025 09:19
[2025-01-20 10:34] LABS: Base Excess 0.8 mmol/L (-2.0-3.0)
[2025-01-20] MEDS: MORPHINE SULFATE 4 MG/ML SYR/VIAL IV PRN (12:21)
[2025-01-20] MEDS: LABETALOL HCL 20 MG/4 ML VL IV PRN (17:30)
--- NOTE | 2025-01-20 22:23 | DVHPN2 ---
Subjective DOS: 01/20/2025 Patient seen and examined at bedside. S/p extubation, currently on room air. Overnight events reviewed. Reviewed: Care Plan, H&P, Labs, Medications, Previous Orders, Radiology Changes from previous H/P or p: Changes General: Per HPI Musculoskeletal: arm pain Objective Vitals Vital Signs Date Time Temp Pulse Resp B/P (MAP) Pulse Ox O2 Delivery O2 Flow Rate FiO2 01/20/25 20:10 101 20 100 01/20/25 20:00 Nasal Cannula 4.0 01/20/25 20:00 36 01/20/25 19:00 159/76 (103) 01/20/25 15:47 98.1 98.1 Intake/Output Intake and Output 01/20/25 07:00 Intake Total 582.85 ml Output Total 900 ml Balance -317.15 ml Intake Oral 120 ml IV Total 432.85 ml Tube Feeding 30 ml Output Urine Total 900 ml General Appearance: Alert, No acute distress, Other (Encephalopathic) HEENT: Atraumatic Lungs: Clear to auscultation, Other (Decreased air entry bilaterally) Cardiovascular: Regular rate, Normal S1, Normal S2 Abdomen: Normal bowel sounds, Soft Genitourinary: No Apparent Abnormalities (Evans catheter) Musculoskeletal: Weak motor strength RUE, Weak motor strength LUE, Weak motor strength RLE, Weak motor strength LLE Extremities: No edema Neuro: Normal speech, Strength at 5/5 X4 ext, Cranial nerves 3-12 NL Skin: Dry, Intact Psych/Mental Status: Other Medications Current Medications Medications Dose Ordered Sig/Aida Route Start Time Stop Time Status Last Admin Dose Admin Levalbuterol HCl 1.25 mg Q6HR NEB 01/15/25 03:45 01/20/25 20:00 1.25 MG Midazolam HCl 50 ml @ 1 mls/hr Q24H IV 01/15/25 04:45 01/19/25 00:04 2 MLS/HR Fentanyl Citrate 250 ml @ 2.5 mls/hr Q24H IV 01/15/25 04:45 01/19/25 19:36 12.5 MLS/HR Ipratropium [place] 0.5 mg Q6HWA NEB 01/15/25 12:00 01/20/25 20:00 0.5 MG Enoxaparin Sodium 40 mg DAILY SC 01/15/25 10:00 01/20/25 10:07 40 MG Propofol 100 ml @ 1.62 mls/hr Q24H IV 01/15/25 06:30 01/20/25 04:18 9.72 MLS/HR Norepinephrine Bitartrate 250 ml @ 3.75 mls/hr Q24H IV 01/15/25 06:45 01/15/25 07:00 3.75 MLS/HR Remdesivir 100 mg/ Sodium Chloride 250 ml @ 250 mls/hr DAILY@1500 IV 01/16/25 15:00 01/17/25 15:59 Cancel Pantoprazole Sodium 40 mg DAILY IV 01/16/25 10:00 01/20/25 10:05 40 MG Diagnostic Test (Pha) 1 strip Q6HR 01/16/25 06:00 01/20/25 18:22 1 STRIP Insulin Human Regular Q6HR SC 01/16/25 06:00 01/16/25 05:51 3 UNITS Dextrose 50 ml UD PRN IV 01/16/25 00:30 Baclofen 5 mg Q8HP PRN PO 01/16/25 18:00 UNV Amlodipine Besylate 10 mg DAILY PO 01/17/25 10:00 UNV Hydrochlorothiazide 50 mg DAILY PO 01/17/25 10:00 UNV Losartan Potassium 50 mg DAILY PO 01/17/25 10:00 UNV Enteral Nutritional Formula 1,000 ml 50ML/HR GT 01/17/25 15:45 01/17/25 23:42 1,000 ML Methylprednisolone Sodium Succinate 40 mg DAILY IV 01/19/25 10:00 01/20/25 10:05 40 MG Ceftriaxone Sodium 50 ml @ 100 mls/hr DAILY@09 IV 01/19/25 09:00 01/20/25 10:05 100 MLS/HR Hydralazine HCl 10 mg Q6HPRN PRN IV 01/19/25 16:45 01/20/25 14:20 10 MG Quetiapine Fumarate 50 mg BID PO 01/19/25 22:00 01/19/25 21:49 50 MG Morphine Sulfate 1 mg Q3HP PRN IV 01/20/25 12:30 01/20/25 18:23 1 MG Nicardipine/ Sodium Chloride 200 ml @ 50 mls/hr Q4H IV 01/20/25 16:45 Labetalol HCl 10 mg Q2HPRN PRN IV 01/20/25 16:45 01/20/25 17:30 10 MG Laboratory Results Laboratory Tests 01/20/25 04:40 01/20/25 13:08 Chemistry Test 01/20/25 04:40 Calcium Level 8.8 mg/dL (8.7-10.4) Urinalysis Test 01/15/25 05:50 Urine Color Light-yellow (Yellow) Urine Clarity Clear (Clear) Urine pH 5.5 (5.0-9.0) Urine Specific [place] 1.021 (1.001-1.035) Urine Protein Negative (Negative) Urine Ketones Negative (Negative) Urine Blood Negative /uL (Negative) Urine Nitrite Negative (Negative) Urine Bilirubin Negative (Negative) Urine Urobilinogen Normal mg/dL (Negative) Urine Leukocyte Esterase Negative /uL (Negative) Urine RBC <1 /hpf (0 - 4) Urine Microscopic WBC 1 /HPF (0-5) Urine Squamous Epithelial Cells None seen /hpf (<5) Urine Bacteria None seen /hpf (None Seen) Urine Mucus Few (None Seen) Urine Glucose Normal mg/dL (Normal) Blood Gas Results Test 01/20/25 06:07 01/20/25 10:24 Arterial Blood pH 7.428 (7.350-7.450) 7.425 (7.350-7.450) FiO2 % 30.0 30.0 Microbiology Microbiology Date/Time Source Procedure Growth Status 01/15/25 10:43 Urine - [place] Urine Culture - Final Complete 01/15/25 06:25 Nose MRSA Screen - Final Complete 01/15/25 04:20 Blood Blood Culture - Final NO GROWTH AFTER 5 DAYS OF INCUBATION. Complete Assessment/Plan Assessment/Plan Impression: Acute hypoxic respiratory failure On mechanical ventilator, s/p extubation COVID-19 infection Influenza A and B Acute COPD exacerbation Substance abuse. Hx of nicotine dependence Pulmonary hypertension, moderately severe (Echo 11/2024 - LVEF 65%, moderate dilated RV and RA, RVSP 57 mmHg) Events: Patient tolerated CPAP today and was extubated uneventfully Currently breathing on room air Supplemental oxygen PRN Swallow evaluation Continue Seroquel 50 mg IVP q.12 hours Continue antibiotics Continue Tamiflu course. Continue bronchodilators IV steroids Labs and imaging reviewed. Rest of plan as noted below. Plan: S/p extubation Supplemental oxygen PRN Titrate to keep O2 sats above 90%. Continue antibiotics. Follow up cultures. Continue Tamiflu course. Continue bronchodilators IV steroids Pressors as necessary for hemodynamic support Titrate to keep mean arterial pressure greater than 65 mmHg. Patient is off pressors Protonix for GI ppx Monitor renal function Monitor electrolytes. Supplement as necessary. Monitor ins and outs. Maintain euvolemia. Recommend cessation of substance use. GI prophylaxis. DVT prophylaxis. Prognosis: Poor given patient's multiple co-morbidities. Condition: Critical Rest of plan per hospitalist and other consultants. A total of 35 minutes of critical care time was spent reviewing the patient record, examining the patient, making a diagnostic and therapeutic plan, discussing this plan with the medical personnel, following up on diagnostic studies and following the patient for clinical stability excluding any and all procedures. At least 50% of this time was spent in direct, [id number] contact. Thank you, ASHLEE Weiner, for allowing me to participate in this patient's care. Further recommendations will depend on the patient's clinical course. Please do not hesitate to contact me if you have any questions or concerns. This medical document was created using an electronic medical record system with [employer] dictation system. Although these documentations are being carefully reviewed, there may still be some phonetic and typographical changes. The errors are purely typographical, due to imperfection on the software program, and do not reflect any compromise in the patient's medical care. Plan discussed with: Patient, Other (RN Silvano) My Orders Orders - SYLVIE RAMIREZ MD Procedure Category Date Status Time * Swallow Request ST 01/20/25 Transmitted 15:06 Pt Request For Service PT 01/20/25 Logged 15:06 Visit Coding Pulmonary Billing Provider: SYLVIE RAMIREZ MD Date of Service if different f: Jan 20, 2025 Common Visit Codes: [id number] INP/OBS CARE(HIGH), [id number] CARE 30-74 MIN SYLVIE RAMIREZ MD Jan 20, 2025 22:23
[2025-01-20] MEDS ORDERED: ONDANSETRON HCL 4 MG/2 ML VIAL IV PRN (23:15)
[2025-01-21] VITALS (60 sets, daily range): BP systolic 131–199; BP diastolic 64–161; PULSE 66–99; RESP 12–31; TEMP 98.1–98.6; O2SAT 92–100
[2025-01-21 04:57] LABS: Hematocrit 35.3 % (36.0-46.0); Hemoglobin 11.5 g/dL (12.2-16.2); Mean Corpuscular Hemoglobin 29.5 pg (28.0-32.0); Mean Corpuscular Volume 90.4 fL (80.0-100.0); Nucleated Red Blood Cells % 0.0 %
--- NOTE | 2025-01-21 05:04 | DVH ---
CHEST RADIOGRAPH Indication: ET intubation Technique: Single frontal view of the chest was obtained COMPARISON: XY CHEST XRAY 1 VIEW on DOS: 01/20/25, XY CHEST PORTABLE on DOS: 01/19/25, XY CHEST PORTABL E on DOS: 01/18/25, XY CHEST XRAY 1 VIEW on DOS: 01/17/25, XY CHEST XRAY 1 VIEW on DOS: 01/16/25 FINDINGS: Lines and Tubes: Status post interval extubation and removal of enteric catheter. Lungs: Clear Pleura: No effusion. No pneumothorax. Cardiomediastinal contours: Unremarkable Bones: Unremarkable IMPRESSION: 1. No acute cardiopulmonary disease. Status post interval extubation and removal of enteric catheter.
[2025-01-21 05:16] LABS: Calcium 9.0 mg/dL (8.7-10.4); Chloride 104 mmol/L (98-107); Sodium 143 mmol/L (136-145)
[2025-01-21 05:17] LABS: Anion Gap 13 (5-15); Carbon Dioxide 26 mmol/L (20-31)
[2025-01-21 05:22] LABS: BUN/Creatinine Ratio 23.1 (10.0-20.0); Blood Urea Nitrogen 12 mg/dL (9-23); Magnesium 2.0 mg/dL (1.6-2.6)
[2025-01-21 05:24] LABS: Glucose 131 mg/dL (74-106); Potassium 3.3 mmol/L (3.5-5.1)
[2025-01-21] MEDS ORDERED: DEXTROSE (50%) 50ML SYRG IV PRN (09:00)
--- NOTE | 2025-01-21 09:03 | DVHPN2 ---
Subjective Patient denies any symptoms Reviewed: Care Plan, H&P, Labs, Medications, Previous Orders, Radiology Changes from previous H/P or p: No Changes General: Per HPI Musculoskeletal: arm pain Objective Vitals Vital Signs Date Time Temp Pulse Resp B/P (MAP) Pulse Ox O2 Delivery O2 Flow Rate FiO2 01/21/25 07:14 72 191/81 01/21/25 07:14 20 01/21/25 07:03 100 01/21/25 07:00 Nasal Cannula 3.0 01/21/25 06:59 32 01/21/25 04:30 98.1 98.1 Intake/Output Intake and Output 01/21/25 07:00 Intake Total 925.60 ml Output Total 2250 ml Balance -1324.40 ml Intake Oral 760 ml IV Total 165.60 ml Output Urine Total 2250 ml General Appearance: Alert, Oriented X3, No acute distress HEENT: Atraumatic Lungs: Clear to auscultation, Normal air movement Cardiovascular: Regular rate, Normal S1, Normal S2 Abdomen: Normal bowel sounds, Soft Genitourinary: No Apparent Abnormalities ([place]ans catheter) Musculoskeletal: Weak motor strength RUE, Weak motor strength LUE Extremities: No edema Neuro: Normal speech, Strength at 5/5 X4 ext, Cranial nerves 3-12 NL Skin: Dry, Intact Psych/Mental Status: Mental status NL, Mood NL Medications Current Medications Medications Dose Ordered Sig/Aida Route Start Time Stop Time Status Last Admin Dose Admin Levalbuterol HCl 1.25 mg Q6HR NEB 01/15/25 03:45 01/21/25 06:53 1.25 MG Fentanyl Citrate 250 ml @ 2.5 mls/hr Q24H IV 01/15/25 04:45 01/19/25 19:36 12.5 MLS/HR Ipratropium [place] 0.5 mg Q6HWA NEB 01/15/25 12:00 01/21/25 06:53 0.5 MG Enoxaparin Sodium 40 mg DAILY SC 01/15/25 10:00 01/20/25 10:07 40 MG Remdesivir 100 mg/ Sodium Chloride 250 ml @ 250 mls/hr DAILY@1500 IV 01/16/25 15:00 01/17/25 15:59 Cancel Pantoprazole Sodium 40 mg DAILY IV 01/16/25 10:00 01/20/25 10:05 40 MG Baclofen 5 mg Q8HP PRN PO 01/16/25 18:00 UNV Amlodipine Besylate 10 mg DAILY PO 01/17/25 10:00 UNV Hydrochlorothiazide 50 mg DAILY PO 01/17/25 10:00 UNV Losartan Potassium 50 mg DAILY PO 01/17/25 10:00 UNV Methylprednisolone Sodium Succinate 40 mg DAILY IV 01/19/25 10:00 01/20/25 10:05 40 MG Ceftriaxone Sodium 50 ml @ 100 mls/hr DAILY@09 IV 01/19/25 09:00 01/20/25 10:05 100 MLS/HR Hydralazine HCl 10 mg Q6HPRN PRN IV 01/19/25 16:45 01/20/25 14:20 10 MG Quetiapine Fumarate 50 mg BID PO 01/19/25 22:00 01/19/25 21:49 50 MG Morphine Sulfate 1 mg Q3HP PRN IV 01/20/25 12:30 01/21/25 06:31 1 MG Labetalol HCl 10 mg Q2HPRN PRN IV 01/20/25 16:45 01/21/25 07:14 10 MG Ondansetron HCl 4 mg Q8HPRN PRN IV 01/20/25 23:15 Potassium Chloride 100 ml @ 50 mls/hr Q2H IV 01/21/25 07:45 01/21/25 11:44 UNV Laboratory Results Laboratory Tests 01/21/25 04:40 Chemistry Test 01/21/25 04:40 Calcium Level 9.0 mg/dL (8.7-10.4) Magnesium Level 2.0 mg/dL (1.6-2.6) Urinalysis Test 01/15/25 05:50 Urine Color Light-yellow (Yellow) Urine Clarity Clear (Clear) Urine pH 5.5 (5.0-9.0) Urine Specific [place] 1.021 (1.001-1.035) Urine Protein Negative (Negative) Urine Ketones Negative (Negative) Urine Blood Negative /uL (Negative) Urine Nitrite Negative (Negative) Urine Bilirubin Negative (Negative) Urine Urobilinogen Normal mg/dL (Negative) Urine Leukocyte Esterase Negative /uL (Negative) Urine RBC <1 /hpf (0 - 4) Urine Microscopic WBC 1 /HPF (0-5) Urine Squamous Epithelial Cells None seen /hpf (<5) Urine Bacteria None seen /hpf (None Seen) Urine Mucus Few (None Seen) Urine Glucose Normal mg/dL (Normal) Blood Gas Results Test 01/20/25 10:24 Arterial Blood pH 7.425 (7.350-7.450) FiO2 % 30.0 Microbiology Microbiology Date/Time Source Procedure Growth Status 01/15/25 10:43 Urine - [place] Urine Culture - Final Complete 01/15/25 06:25 Nose MRSA Screen - Final Complete 01/15/25 04:20 Blood Blood Culture - Final NO GROWTH AFTER 5 DAYS OF INCUBATION. Complete Labs and/or images reviewed: Labs reviewed by me, Image(s) reviewed by me Assessment/Plan Assessment/Plan Impression: -acute hypoxic respiratory failure, now on mechanical ventilation with failure of noninvasive positive pressure ventilation -COVID-19 -influenza a and B -COPD with exacerbation -substance abuse with cocaine -accelerated hypertension -rules out PE Plan: Events: Patient extubated yesterday. Hypertensive overnight. Controlled with IV hydralazine and labetalol. Currently on nasal cannula at 2 L/min -discontinue [place] catheter -potassium replete -out of bed as tolerated -start p.o. antihypertensives -continue Solu-Medrol 40 mg IV daily -PUD, DVT prophylaxis -repeat labs in a.m. -transfer to Medical/Surgical unit Total time spent with patient discussing and formulating plan of care: 35 minutes. This medical document was created using an electronic medical record system with [employer] dictation system. Although this document has been carefully reviewed, there may still be some phonetic and typographical errors. These areas are purely typographical due to imperfections of the software programs, and do not reflect any compromise in the patient's medical care. Plan discussed with: Patient, Other (RN) My Orders Orders - SIERRA MCCOLLUM TEACHING DIETITIAN Procedure Category Date Status Time Abg W/ Co-Ox RT 01/20/25 Logged 10:00 Extubate BRIA 01/20/25 In Process 10:48 Extubate BRIA 01/20/25 In Process 10:50 Morphine Sulfate PHA 01/20/25 In Process Injection 12:30 Cardiac DIET 01/20/25 Transmitted Diet-2gna,Lofat,Lochol Dinner Labetalol Hcl PHA 01/20/25 In Process (Labetalol Hcl) 16:45 Losartan Tablet PHA 01/21/25 Verified (Cozaar Tablet) 10:00 Basic Metabolic Panel LAB 01/22/25 Verified 04:00 Transfer Orders XFER 01/21/25 Transmitted 08:57 Hemoglobin A1c LAB 01/21/25 Verified 09:00 Glucose Blood PHA 01/21/25 Verified (Accu-Chek Comfort 11:30 Mild Sliding Scale PHA 01/21/25 Verified 11:30 Date of Service: Jan 21, 2025 Billing Provider: SIERRA MCCOLLUM NP Common Visit Codes: [id number] INP/OBS CARE(HIGH) SIERRA MCCOLLUM NP Jan 21, 2025 09:03
[2025-01-21] MEDS: POTASSIUM CHL 20MEQ/100ML 100 ML IV SCH (09:55)
[2025-01-21] MEDS: LOSARTAN POTASSIUM 50 MG TAB PO SCH (10:21)
[2025-01-21] MEDS: ACCU-CHEK COMFORT CURVE STRIP VI SCH (12:00)
[2025-01-21] MEDS: InsuLIN REG 1unit/0.01ml Soln (100units/ml) SC SCH (12:07)
--- NOTE | 2025-01-21 21:42 | DVHPN2 ---
Subjective DOS: 01/21/2025 Patient seen and examined at bedside. On supplemental oxygen Overnight events reviewed. Reviewed: Care Plan, H&P, Labs, Medications, Previous Orders, Radiology Changes from previous H/P or p: Changes General: Per HPI Musculoskeletal: arm pain Objective Vitals Vital Signs Date Time Temp Pulse Resp B/P (MAP) Pulse Ox O2 Delivery O2 Flow Rate FiO2 01/21/25 20:00 31 98 Nasal Cannula* 3 32 01/21/25 20:00 99 01/21/25 20:00 98.4 171/79 (109) 98.4 Intake/Output Intake and Output 01/21/25 07:00 Intake Total 925.60 ml Output Total 2250 ml Balance -1324.40 ml Intake Oral 760 ml IV Total 165.60 ml Output Urine Total 2250 ml General Appearance: Alert, Oriented X3, No acute distress HEENT: Atraumatic Lungs: Clear to auscultation, Normal air movement Cardiovascular: Regular rate, Normal S1, Normal S2 Abdomen: Normal bowel sounds, Soft Genitourinary: No Apparent Abnormalities ([place]ans catheter) Musculoskeletal: Weak motor strength RUE, Weak motor strength LUE Extremities: No edema Neuro: Normal speech, Strength at 5/5 X4 ext, Cranial nerves 3-12 NL Skin: Dry, Intact Psych/Mental Status: Mental status NL, Mood NL Medications Current Medications Medications Dose Ordered Sig/Aida Route Start Time Stop Time Status Last Admin Dose Admin Levalbuterol HCl 1.25 mg Q6HR NEB 01/15/25 03:45 01/21/25 18:37 1.25 MG Fentanyl Citrate 250 ml @ 2.5 mls/hr Q24H IV 01/15/25 04:45 01/19/25 19:36 12.5 MLS/HR Ipratropium [place] 0.5 mg Q6HWA NEB 01/15/25 12:00 01/21/25 18:37 0.5 MG Enoxaparin Sodium 40 mg DAILY SC 01/15/25 10:00 01/21/25 10:22 40 MG Remdesivir 100 mg/ Sodium Chloride 250 ml @ 250 mls/hr DAILY@1500 IV 01/16/25 15:00 01/17/25 15:59 Cancel Pantoprazole Sodium 40 mg DAILY IV 01/16/25 10:00 01/21/25 10:15 40 MG Baclofen 5 mg Q8HP PRN PO 01/16/25 18:00 UNV Amlodipine Besylate 10 mg DAILY PO 01/17/25 10:00 UNV Hydrochlorothiazide 50 mg DAILY PO 01/17/25 10:00 UNV Losartan Potassium 50 mg DAILY PO 01/17/25 10:00 UNV Methylprednisolone Sodium Succinate 40 mg DAILY IV 01/19/25 10:00 01/21/25 10:15 40 MG Ceftriaxone Sodium 50 ml @ 100 mls/hr DAILY@09 IV 01/19/25 09:00 01/21/25 09:56 100 MLS/HR Hydralazine HCl 10 mg Q6HPRN PRN IV 01/19/25 16:45 01/20/25 14:20 10 MG Quetiapine Fumarate 50 mg BID PO 01/19/25 22:00 01/19/25 21:49 50 MG Morphine Sulfate 1 mg Q3HP PRN IV 01/20/25 12:30 01/21/25 19:01 1 MG Labetalol HCl 10 mg Q2HPRN PRN IV 01/20/25 16:45 01/21/25 19:46 10 MG Ondansetron HCl 4 mg Q8HPRN PRN IV 01/20/25 23:15 Losartan Potassium 50 mg DAILY PO 01/21/25 10:00 01/21/25 10:21 50 MG Diagnostic Test (Pha) 1 strip ACHS 01/21/25 11:30 01/21/25 17:29 1 STRIP Insulin Human Regular ACHS SC 01/21/25 11:30 01/21/25 18:12 3 UNITS Dextrose 50 ml UD PRN IV 01/21/25 09:00 Laboratory Results Laboratory Tests 01/21/25 04:40 01/21/25 14:00 Chemistry Test 01/21/25 04:40 Calcium Level 9.0 mg/dL (8.7-10.4) Magnesium Level 2.0 mg/dL (1.6-2.6) HgA1c, TSH Test 01/21/25 04:40 Hemoglobin A1c 5.4 % A1C (<5.7) Urinalysis Test 01/15/25 05:50 Urine Color Light-yellow (Yellow) Urine Clarity Clear (Clear) Urine pH 5.5 (5.0-9.0) Urine Specific [place] 1.021 (1.001-1.035) Urine Protein Negative (Negative) Urine Ketones Negative (Negative) Urine Blood Negative /uL (Negative) Urine Nitrite Negative (Negative) Urine Bilirubin Negative (Negative) Urine Urobilinogen Normal mg/dL (Negative) Urine Leukocyte Esterase Negative /uL (Negative) Urine RBC <1 /hpf (0 - 4) Urine Microscopic WBC 1 /HPF (0-5) Urine Squamous Epithelial Cells None seen /hpf (<5) Urine Bacteria None seen /hpf (None Seen) Urine Mucus Few (None Seen) Urine Glucose Normal mg/dL (Normal) Microbiology Microbiology Date/Time Source Procedure Growth Status 01/15/25 10:43 Urine - [place] Urine Culture - Final Complete 01/15/25 06:25 Nose MRSA Screen - Final Complete 01/15/25 04:20 Blood Blood Culture - Final NO GROWTH AFTER 5 DAYS OF INCUBATION. Complete Assessment/Plan Assessment/Plan Impression: Acute hypoxic respiratory failure Dependence on supplemental oxygen COVID-19 infection Influenza A and B Acute COPD exacerbation Substance abuse. Hx of nicotine dependence Pulmonary hypertension, moderately severe (Echo 11/2024 - LVEF 65%, moderate dilated RV and RA, RVSP 57 mmHg) Events: Currently on supplemental oxygen On 3 LPM NC, back to baseline. Chest x-ray shows no acute opacities. Interval removal of ET tube. Swallow evaluation Head of bed elevation Aspiration precautions Continue Seroquel 50 mg IVP q.12 hours Continue antibiotics WBC currently 16 K Continue bronchodilators IV steroids Monitor renal function Monitor electrolytes. Supplement as necessary. Supplement potassium. Magnesium at goal Physical Therapy evaluation. Patient is stable for downgrade from the pulmonary standpoint. Labs and imaging reviewed. Rest of plan as noted below. Plan: S/p extubation on 01/20/25 Supplemental oxygen Titrate to keep O2 sats above 90%. Continue antibiotics. Follow up cultures. Complete Tamiflu course. Continue bronchodilators IV steroids Pressors as necessary for hemodynamic support Titrate to keep mean arterial pressure greater than 65 mmHg. Patient is off pressors Protonix for GI ppx Monitor renal function Monitor electrolytes. Supplement as necessary. Monitor ins and outs. Maintain euvolemia. Recommend cessation of substance use. GI prophylaxis. DVT prophylaxis. Prognosis: Poor given patient's multiple co-morbidities. Rest of plan per hospitalist and other consultants. Thank you, ASHLEE Weiner, for allowing me to participate in this patient's care. Further recommendations will depend on the patient's clinical course. Please do not hesitate to contact me if you have any questions or concerns. This medical document was created using an electronic medical record system with [employer] dictation system. Although these documentations are being carefully reviewed, there may still be some phonetic and typographical changes. The errors are purely typographical, due to imperfection on the software program, and do not reflect any compromise in the patient's medical care. Plan discussed with: Patient, Other (RN July) Visit Coding Pulmonary Billing Provider: SYLVIE RAMIREZ MD Date of Service if different f: Jan 21, 2025 Common Visit Codes: [id number] INP/OBS CARE(HIGH) SYLVIE RAMIREZ MD Jan 21, 2025 21:42
[2025-01-22] VITALS (9 sets, daily range): BP systolic 127–151; BP diastolic 72–94; PULSE 63–90; RESP 16–30; TEMP 97.7–98.5; O2SAT 94–100
[2025-01-22 06:08] LABS: Hematocrit 34.5 % (36.0-46.0); Hemoglobin 11.3 g/dL (12.2-16.2); Mean Corpuscular Hemoglobin 29.5 pg (28.0-32.0); Mean Corpuscular Volume 90.3 fL (80.0-100.0); Nucleated Red Blood Cells % 0.1 %
[2025-01-22 06:18] LABS: Calcium 8.8 mg/dL (8.7-10.4); Chloride 105 mmol/L (98-107); Sodium 142 mmol/L (136-145)
[2025-01-22 06:19] LABS: Anion Gap 10 (5-15); Carbon Dioxide 27 mmol/L (20-31)
[2025-01-22 06:22] LABS: Potassium 3.3 mmol/L (3.5-5.1)
[2025-01-22 06:25] LABS: BUN/Creatinine Ratio 16.4 (10.0-20.0); Blood Urea Nitrogen 9 mg/dL (9-23)
[2025-01-22 06:30] LABS: Glucose 139 mg/dL (74-106)
--- NOTE | 2025-01-22 10:59 | DVHDS2 ---
Discharge Summary Date of Admission Jan 15, 2025 at 06:15 Date of Discharge: Jan 22, 2025 Admitting Diagnosis Acute respiratory failure Labs/Diagnostic Data: Laboratory Results Test 01/22/25 06:37 01/22/25 05:17 01/21/25 04:40 01/20/25 10:24 POC Glucose 113 mg/dl (70-106) White Blood Count 11.8 10^3/uL (4.4-10.8) Red Blood Count 3.83 10^6/uL (4.0-5.20) Hemoglobin 11.3 g/dL (12.2-16.2) Hematocrit 34.5 % (36.0-46.0) Mean Corpuscular Volume 90.3 fL (80.0-100.0) Mean Corpuscular Hemoglobin 29.5 pg (28.0-32.0) Mean Corpuscular Hemoglobin Concent 32.7 g/dL (32.0-36.0) Red Cell Distribution Width 15.1 % (11.8-14.3) Platelet Count 238 10^3/uL (140-450) Mean Platelet Volume 10.2 fL (6.9-10.8) Neutrophils (%) (Auto) 65.8 % (37.0-80.0) Lymphocytes (%) (Auto) 20.5 % (10.0-50.0) Monocytes (%) (Auto) 10.5 % (0.0-12.0) Eosinophils (%) (Auto) 2.8 % (0.0-7.0) Basophils (%) (Auto) 0.4 % (0.0-2.0) Neutrophils # (Auto) 7.7 10 ^3/uL (1.6-8.6) Lymphocytes # (Auto) 2.4 10 ^3/uL (0.4-5.4) Monocytes # (Auto) 1.2 10 ^3/uL (0-1.3) Eosinophils # (Auto) 0.3 10 ^3/uL (0-0.8) Basophils # (Auto) 0.1 10 ^3/uL (0-0.2) Nucleated Red Blood Cells 0.1 % Sodium Level 142 mmol/L (136-145) Potassium Level 3.3 mmol/L (3.5-5.1) Chloride Level 105 mmol/L (98-107) Carbon Dioxide Level 27 mmol/L (20-31) Anion Gap 10 (5-15) Blood Urea Nitrogen 9 mg/dL (9-23) Creatinine 0.55 mg/dL (0.550-1.02) Glomerular Filtration Rate Calc 102 mL/min (>90) BUN/Creatinine Ratio 16.4 (10.0-20.0) Serum Glucose 139 mg/dL (74-106) Calcium Level 8.8 mg/dL (8.7-10.4) Hemoglobin A1c 5.4 % A1C (<5.7) Magnesium Level 2.0 mg/dL (1.6-2.6) Blood Gas Specimen Type Arterial Blood Gas Sample Site Right radial Blood Gas Patient Temperature 37.0 Arterial Blood Date Drawn [id number] Arterial Blood pH 7.425 (7.350-7.450) Arterial Blood Partial Pressure CO2 39.2 mmHg (32.0-45.0) Arterial Blood Partial Pressure O2 76.5 mmHg (83.0-108.0) Arterial Blood HCO3 25.1 mmol/L (21.0-28.0) Arterial Blood Oxygen Saturation 94.6 % (94.0-98.0) Arterial Blood Base Excess 0.8 mmol/L (-2.0-3.0) Arterial Blood Oxyhemoglobin 93.9 % (94.0-98.0) Arterial Blood Carboxyhemoglobin 0.3 % (0.5-1.5) Arterial Blood Methemoglobin 0.4 % (0.0-1.5) [place] Test Modified Blood Gas Total Hemoglobin 11.40 g/dL (12.0-16.0) Blood Gas Modality Vent - cpap FiO2 % 30.0 Blood Gas Pressure Support 8 Blood Gas PEEP or CPAP 5.0 Test 01/20/25 06:07 01/19/25 04:47 01/18/25 03:11 01/15/25 10:34 Blood Gas Set Respiration Rate 18.0 Blood Gas Tidal Volume 400.0 Total Bilirubin 0.2 mg/dL (0.2-1.0) Aspartate Amino Transferase (AST) 13 U/L (13-40) Alanine Aminotransferase (ALT) < 9 U/L (7-40) Alkaline Phosphatase 53 U/L (46-116) Total Protein 5.3 g/dL (5.7-8.2) Albumin 3.3 g/dL (3.2-4.8) D-Dimer, Quantitative 0.30 mg/L FEU (0.0-0.49) Prothrombin Time 10.6 sec (9.3-11.8) Prothrombin Time INR 1.00 (0.9-1.15) Activated Partial Thromboplast Time 26.7 SEC (24.5-34.5) Test 01/15/25 08:25 01/15/25 06:39 01/15/25 05:50 01/15/25 04:15 Blood Gas Critical Value Read Back Yes Blood Gas Notified Whom Md. hilary clayton Blood Gas Notified Time [id number] Blood Gas Notified By Rt enedelia cerna Troponin I High Sensitivity 10 ng/L (</=34) Urine Color Light-yellow (Yellow) Urine Clarity Clear (Clear) Urine pH 5.5 (5.0-9.0) Urine Specific [place] 1.021 (1.001-1.035) Urine Protein Negative (Negative) Urine Ketones Negative (Negative) Urine Blood Negative /uL (Negative) Urine Nitrite Negative (Negative) Urine Bilirubin Negative (Negative) Urine Urobilinogen Normal mg/dL (Negative) Urine Leukocyte Esterase Negative /uL (Negative) Urine RBC <1 /hpf (0 - 4) Urine Microscopic WBC 1 /HPF (0-5) Urine Squamous Epithelial Cells None seen /hpf (<5) Urine Bacteria None seen /hpf (None Seen) Urine Mucus Few (None Seen) Urine Glucose Normal mg/dL (Normal) Urine Opiates Screen Pos (NEGATIVE) Urine Fentanyl Screen Neg (NEGATIVE) Urine Barbiturates Screen Neg (NEGATIVE) Urine Phencyclidine Screen Neg (NEGATIVE) Urine Amphetamines Screen Neg (NEGATIVE) Urine Benzodiazepines Screen Neg (NEGATIVE) Urine Cocaine Screen Pos (NEGATIVE) Urine Cannabinoids Screen Neg (NEGATIVE) Influenza Type A Antigen Positive (Negative) Influenza Type B Antigen Positive (Negative) SARS-CoV-2 Antigen (Rapid) Positive (NEGATIVE) Test 01/15/25 03:34 Erythrocyte Sedimentation Rate 12 mm/hr (0-20) Lactic Acid Level 0.9 mmol/L (0.4-2.0) C-Reactive Protein High Sensitivity 0.07 mg/dL (<1.0) B-Type Natriuretic Peptide 45.60 pg/mL (0-100) Plasma/Serum Blood Alcohol < 3.0 mg/dL (<10) Other Laboratory Tests 01/22/25 05:17 Brief Hx & Hospital Course: History of Present Illness Adriane Ly is a 64-year-old female patient who presents to ED via EMS due to progressive dyspnea from Functional Class II to Functional Class IV for the past day before her admission. Patient presented acute respiratory failure requiring endotracheal intubation in ED. Obtain past medical history and other relevant history from EM are in previous discharge summaries. Could not obtain review of systems due to clinical status. Course of hospitalization: Patient was started on empiric IV antibiotic therapy, Tamiflu, with initial order for remdesivir stopped given FiO2 of 30%. Patient was successfully weaned off mechanical ventilation two days ago. Patient is currently on her baseline O2 requirements of 2-3 L/min. Patient has been ambulating. Dyspnea has improved. Physical therapy has been implemented, with the patient able to ambulate with some assistance. Patient is declining to go to a custodial facility and requesting to be discharged home. She states that she has all DME including oxygen at home already. Patient is instructed to continue all previous home medications. Antibiotic therapy we will be stopped given no bacterial growth and improvement with clinical status. Patient received full course of Tamiflu. Lifestyle modification education was given to the patient regarding the need to stop using illicit drugs. Patient denies using drugs. She is instructed to follow up with her PCP in 1-2 weeks. Physical examination General: Alert and Oriented x3. No acute distress. Well-nourished. Eyes: EOMI. Anicteric. HENT: Moist mucous membranes. Lungs: Clear to auscultation bilaterally. No accessory muscle use. Cardiovascular: Regular rate and rhythm. No murmur. No JVD. Abdomen: Soft, non-tender and non-distended. No palpable masses. Extremities: No edema. Non-tender. Skin: No rashes or lesions. Warm. Neurologic: No focal neurological deficits. CN II-XII grossly intact, but not individually tested. Psychiatric: Cooperative. Appropriate mood and affect. Total time spent with patient discussing and formulating plan of care: 35 minutes. This medical document was created using an electronic medical record system with [employer] system. Although this document has been carefully reviewed, there may still be some phonetic and typographical errors. These areas are purely typographical due to imperfections of the software programs, and do not reflect any compromise in the patient's medical care. Condition at Discharge: Poor Final Diagnosis/Problems List Acute on chronic hypoxic respiratory failure -acute hypoxic respiratory failure, now on mechanical ventilation with failure of noninvasive positive pressure ventilation -COVID-19 -influenza a and B -COPD with exacerbation -substance abuse with cocaine -accelerated hypertension -ruled out PE Discharge Disposition: Home Discharge Instruct/Medications Diet: Cardiac 2g Na,low cholest Activity: No Restrictions, As Tolerated Follow Up/Referral: Follow up with PCP in 1-2 weeks Medications: Continue all previous home medications Scheduled Cholecalciferol (Vitamin D3), 1 TAB PO DAILY, (Reported) Fluconazole (Fluconazole), 100 MG PO DAILY Yegfbaumvto-Cvqgzuoprkhj-Ivzjo (Trelegy Ellipta 100-62.5-25 Mcg/INH), 1 PUFF IN DAILY, (Reported) Losartan Potassium (Losartan Potassium), 1 TAB PO DAILY, (Reported) Metformin Hydrochloride (Metformin Hcl), 1 TAB PO BID Nystatin (Mouth-Throat) (Mycostatin (Mouth-Throat)), 5 ML MT QID Pantoprazole Sodium Sesquihydr (Pantoprazole Sodium), 40 MG PO DAILY Prednisone (Prednisone), 20 MG PO DAILY Prednisone (Prednisone), 20 MG PO half daily Prednisone (Prednisone), 20 MG PO QAM Simvastatin (Simvastatin), 1 TAB PO DAILY, (Reported) Scheduled PRN Albuterol Sulfate (Albuterol Sulfate Hfa), 1 PUFF IN Q4-6HR PRN for WHEEZING, (Reported) Prednisone (Prednisone), 20 MG PO as directed PRN Trazodone Hcl (Trazodone Hcl), 1 TAB PO HS PRN for FOR INSOMNIA, (Reported) 36 Discharge Statement: "Patient was advised to return to the ER or call 911 if any headaches, dizziness, shortness of breath, chest pain, abdominal pain, bleeding, fevers, or worsening of medical condition. Patient was counseled about treatment plan, medications, possible side effects, patientverbalized understanding. All questions were answered to the best of my ability. This discharge took greater then 30 minutes in planning, reviewing documentation, counseling the patient, and discussing with other team members." ASSESSMENT ASSESSMENT Assessment Acute on chronic hypoxic respiratory failure Date of Service: Jan 22, 2025 Billing Provider: SIERRA MCCOLLUM NP Common Visit Codes: 42956-FWK/OBS DISCH DAY >30min SIERRA MCCOLLUM NP Jan 22, 2025 10:59
[2025-01-22] MEDS: POTASSIUM EFFERVESENT TAB 25 MEQ PO ONE (15:14)
--- NOTE | 2025-01-23 00:20 | DVHPN2 ---
Subjective DOS: 01/22/2025 Patient seen and examined at bedside. On supplemental oxygen Overnight events reviewed. Reviewed: Care Plan, H&P, Labs, Medications, Previous Orders, Radiology Changes from previous H/P or p: No Changes General: Per HPI Musculoskeletal: arm pain Objective Vitals Vital Signs Date Time Temp Pulse Resp B/P (MAP) Pulse Ox O2 Delivery O2 Flow Rate FiO2 01/22/25 18:15 159/88 01/22/25 15:45 84 17 01/22/25 13:00 98.5 94 98.5 01/22/25 11:37 Nasal Cannula 3.0 01/22/25 11:37 32 Intake/Output Intake and Output 01/23/25 07:00 Intake Total 125 ml Balance 125 ml Intake Oral 125 ml # Voids 2 General Appearance: Alert, Oriented X3, No acute distress HEENT: Atraumatic Lungs: Clear to auscultation, Normal air movement Cardiovascular: Regular rate, Normal S1, Normal S2 Abdomen: Normal bowel sounds, Soft Genitourinary: No Apparent Abnormalities ([place] catheter) Musculoskeletal: Weak motor strength RUE, Weak motor strength LUE Extremities: No edema Neuro: Normal speech, Strength at 5/5 X4 ext, Cranial nerves 3-12 NL Skin: Dry, Intact Psych/Mental Status: Mental status NL, Mood NL Medications Current Medications Medications Dose Ordered Sig/Aida Route Start Time Stop Time Status Last Admin Dose Admin Remdesivir 100 mg/ Sodium Chloride 250 ml @ 250 mls/hr DAILY@1500 IV 01/16/25 15:00 01/17/25 15:59 Cancel Baclofen 5 mg Q8HP PRN PO 01/16/25 18:00 UNV Amlodipine Besylate 10 mg DAILY PO 01/17/25 10:00 UNV Hydrochlorothiazide 50 mg DAILY PO 01/17/25 10:00 UNV Losartan Potassium 50 mg DAILY PO 01/17/25 10:00 UNV Laboratory Results Laboratory Tests 01/22/25 05:17 Chemistry Test 01/22/25 05:17 Calcium Level 8.8 mg/dL (8.7-10.4) Urinalysis Test 01/15/25 05:50 Urine Color Light-yellow (Yellow) Urine Clarity Clear (Clear) Urine pH 5.5 (5.0-9.0) Urine Specific [place] 1.021 (1.001-1.035) Urine Protein Negative (Negative) Urine Ketones Negative (Negative) Urine Blood Negative /uL (Negative) Urine Nitrite Negative (Negative) Urine Bilirubin Negative (Negative) Urine Urobilinogen Normal mg/dL (Negative) Urine Leukocyte Esterase Negative /uL (Negative) Urine RBC <1 /hpf (0 - 4) Urine Microscopic WBC 1 /HPF (0-5) Urine Squamous Epithelial Cells None seen /hpf (<5) Urine Bacteria None seen /hpf (None Seen) Urine Mucus Few (None Seen) Urine Glucose Normal mg/dL (Normal) Microbiology Microbiology Date/Time Source Procedure Growth Status 01/15/25 10:43 Urine - [place] Urine Culture - Final Complete 01/15/25 06:25 Nose MRSA Screen - Final Complete 01/15/25 04:20 Blood Blood Culture - Final NO GROWTH AFTER 5 DAYS OF INCUBATION. Complete Assessment/Plan Assessment/Plan Impression: Acute hypoxic respiratory failure Dependence on supplemental oxygen COVID-19 infection Influenza A and B Acute COPD exacerbation Substance abuse. Hx of nicotine dependence Pulmonary hypertension, moderately severe (Echo 11/2024 - LVEF 65%, moderate dilated RV and RA, RVSP 57 mmHg) Events: Currently on supplemental oxygen On 3 LPM NC, back to baseline. Chest x-ray on 01/21/25 shows no acute opacities. Swallow evaluation Head of bed elevation Aspiration precautions Continue antibiotics WBC trended down to 11.8 K Continue bronchodilators IV steroids Blood pressure control. Monitor renal function Monitor electrolytes. Supplement as necessary. Supplement potassium. Accu-Cheks, ISS Hemoglobin stable. Protonix for GI ppx Pain control Avoid oversedation Physical Therapy evaluation. Discharge planning Labs and imaging reviewed. Rest of plan as noted below. Plan: S/p extubation on 01/20/25 Supplemental oxygen Titrate to keep O2 sats above 90%. Continue antibiotics. Follow up cultures. Complete Tamiflu course. Continue bronchodilators IV steroids Pressors as necessary for hemodynamic support Titrate to keep mean arterial pressure greater than 65 mmHg. Patient is off pressors Accu-Cheks, ISS Monitor renal function Monitor electrolytes. Supplement as necessary. Monitor ins and outs. Maintain euvolemia. Recommend cessation of substance use. GI prophylaxis - Protonix DVT prophylaxis - Lovenox SC. Prognosis: Poor given patient's multiple co-morbidities. Rest of plan per hospitalist and other consultants. Thank you, ASHLEE Weiner, for allowing me to participate in this patient's care. Further recommendations will depend on the patient's clinical course. Please do not hesitate to contact me if you have any questions or concerns. This medical document was created using an electronic medical record system with [employer] dictation system. Although these documentations are being carefully reviewed, there may still be some phonetic and typographical changes. The errors are purely typographical, due to imperfection on the software program, and do not reflect any compromise in the patient's medical care. Plan discussed with: Patient, Other (RN) Visit Coding Pulmonary Billing Provider: SYLVIE RAMIREZ MD Date of Service if different f: Jan 22, 2025 Common Visit Codes: [id number] INP/OBS CARE(HIGH) SYLVIE RAMIREZ MD Jan 23, 2025 00:20
== END 2025-01-22 18:25 | disposition home or self-care (01) | DRG 207 ==
LOC: ER 03:12 → EDBD 03:12 → OVERFLOW 06:15 → ICU CENTRL 16:31 → TELE-CENTR 01-21 21:18
PROVIDERS: ADMIT Nurse Practitioner Acute Care; ATTEND Nurse Practitioner Acute Care
PROC: 5A1955Z Respiratory Ventilation, Greater than 96 Consecutive Hours (ICD-10-PCS; principal; 2025-01-15)
PROC: 0BH17EZ Insertion of Endotracheal Airway into Trachea, Via Natural or Artificial Opening (ICD-10-PCS; 2025-01-15)
PROC: 02HV33Z Insertion of Infusion Device into Superior Vena Cava, Percutaneous Approach (ICD-10-PCS; 2025-01-15)
PROC: B548ZZA Ultrasonography of Superior Vena Cava, Guidance (ICD-10-PCS; 2025-01-15)
PROC: 5A09357 Assistance with Respiratory Ventilation, Less than 24 Consecutive Hours, Continuous Positive Airway Pressure (ICD-10-PCS; 2025-01-15)
PROC: XW033E5 Introduction of Remdesivir Anti-infective into Peripheral Vein, Percutaneous Approach, New Technology Group 5 (ICD-10-PCS; 2025-01-15)
PROC: 06HY33Z Insertion of Infusion Device into Lower Vein, Percutaneous Approach (ICD-10-PCS; 2025-01-18)
DX: U07.1 COVID-19 (principal); J96.22 Acute and chronic respiratory failure with hypercapnia; J96.21 Acute and chronic respiratory failure with hypoxia; J44.1 Chronic obstructive pulmonary disease with (acute) exacerbation; E87.3 Alkalosis; J44.0 Chronic obstructive pulmonary disease with (acute) lower respiratory infection; F14.10 Cocaine abuse, uncomplicated; I10 Essential (primary) hypertension; J10.1 Influenza due to other identified influenza virus with other respiratory manifestations; D64.9 Anemia, unspecified; E11.9 Type 2 diabetes mellitus without complications; I27.20 Pulmonary hypertension, unspecified; Z87.891 Personal history of nicotine dependence; Z88.8 Allergy status to other drugs, medicaments and biological substances; Z99.81 Dependence on supplemental oxygen
CPT/HCPCS: 31500; 36415; 36600; 71045; 71275; 80048; 80053; 80307; 80320; 81001; 82805; 82962; 83036; 83605; 83735; 83880; 84132; 84484; 85025; 85379; 85610; 85652; 85730; 86141; 87040; 87070; 87081; 87086; 87205; 87426; 87804; 93005; 93306; 94002; 94003; 94640; 96365; 97110; 97116; 97163; 99291; G0378; G9035; J1815; J2470; J2543; J2704; J3480